=== PATIENT | female | born 1965 | race Caucasian/White ===

== ENCOUNTER 2017-07-17 10:50 | Inpatient (IN) | payer OTHER, SELFPAY ==
[2017-07-17] MEDS ORDERED: Ondansetron HCl/PF 4 MG/2 ML Vial ONE (11:11)
[2017-07-17] MEDS ORDERED: Insulin Regular 300 UNITS/3 ML VIAL ONE (11:11)
[2017-07-17] MEDS ORDERED: Insulin Regular 100 units/100 ml in NS IVPB ONE (11:15)
--- NOTE | 2017-07-17 11:27 | RAD ---
PORTABLE CHEST: HISTORY: Mental status change. COMPARISON: 01/29/17. The patient is suboptimally positioned. The lungs appear clear with no infiltrate identified. There is a question of a nodular density overlying the left lower lung which could potentially represent n ipple shadow or other artifact given this poor positioning. There is a calcified granuloma in the ri ght mid lung which is stable. No evidence of vascular congestion. IMPRESSION: Suboptimal exam due to poor positioning. Question new nodular density overlying the left lower lung. Otherwise no acute process. POS: [facility]
[2017-07-17 11:38] LABS: Hemoglobin 11.4 g/dL (12.0-16.0); Mean Corpuscular Hemoglobin 28.4 pg (27.0-31.0); Mean Corpuscular Volume 96.7 fl (81.0-99.0); Red Blood Cell (RBC) Count 4.01 mill/uL (4.20-5.40); White Blood Cell (WBC) Count 17.9 thou/uL (4.8-10.8)
[2017-07-17 11:49] LABS: CKMB 2.9 ng/mL (0-6.6); Troponin I 0.036 ng/mL (< 0.028)
[2017-07-17 11:52] LABS: ALT (SGPT) 28 U/L (8-55); AST (SGOT) 19 U/L (5-34); Alkaline Phosphatase 208 U/L (40-150); BUN (Urea Nitrogen) 44 mg/dL (9.8-20.1); Bilirubin, Total 0.2 mg/dL (0.2-1.2); CK (CPK) 48 U/L (29-168); Calc. Creatinine Clearance 0 mL/min (70-130); Calcium 8.4 mg/dL (7.8-10.44); Chloride 82 mmol/L (98-107); Estimated GFR-MDRD 24; Globulin 2.8 g/dL (2.4-3.5); Lipase 20 U/L (8-78); Magnesium 1.9 mg/dL (1.6-2.6); Phosphorus 7.8 mg/dL (2.3-4.7); Potassium 5.4 mmol/L (3.5-5.1); Protein, Total 5.8 g/dL (6.0-8.3); Sodium 125 mmol/L (136-145)
[2017-07-17 11:57] LABS: #Basophils 0.1 thou/uL (0.0-0.2); #Lymphocytes 2.1 thou/uL (1.20-3.40); #Monocytes 1.7 thou/uL (0.11-0.59); %Basophils 0.5 % (0.0-1.0); %Eosinophils 0.3 % (0.0-10.0); %Lymphocytes 11.8 % (21.0-51.0); %Monocytes 9.3 % (0.0-10.0); %Neutrophils 78.2 % (42.0-75.0); Mean Corpuscular HGB CONC 29.4 g/dL (32.0-36.0); Mean Platelet Volume 9.4 fL (7.4-10.4); Platelet Count 404 thou/uL (130-400); RBC Distribution Width 11.4 % (11.5-14.5)
[2017-07-17 12:06] LABS: Carbon Dioxide Less than 8 mmol/L (22-29); Glucose 987 mg/dL (70-105)
--- NOTE | 2017-07-17 13:01 | CT ---
CT HEAD WITHOUT CONTRAST: Technique: Multiple axial tomograms were obtained through the head without IV enhancement. History: Mental status change. FINDINGS: Ventricles have normal size. There is no evidence of intracranial mass, hemorrhage, or acute infarct. IMPRESSION: No acute abnormality. POS: [facility]
--- NOTE | 2017-07-17 14:05 | HP ---
PRIMARY CARE PHYSICIAN: City call admission. The patient is following sometimes Dr. Diego. REASON FOR ADMISSION: Acute kidney failure, acute metabolic encephalopathy, hypothermia, diabetes, k etoacidosis. HISTORY OF PRESENT ILLNESS: A 51-year-old female who has multiple admissions in our hospital in past for diabetes, ketoacidosis. Currently this patient is completely encephalopathic and she is not abl e to provide any history. The patient's family member called paramedics because she was unresponsive and she was completely incoherent. Paramedics saw this patient and she was completely disoriented, lethargic. They checked blood sugar which was greater than 400. After arrival to the emergency room , she had CT brain which was negative for any acute intracranial process. Her chest x-ray was normal . Routine blood tests showed serum ketones 19. Her sodium was 125, potassium 5.4 and carbon dioxide less than 8. Her blood glucose was 987. Her creatinine was 2.16. She had leukocytosis. She was h ypothermic required Jean Pierre Hugger in the emergency room. In the emergency room, patient was given IV f luid and insulin drip was started after giving bolus. REVIEW OF SYSTEMS: All review of systems tried to review with the patient, but unable to review at t his point because of metabolic encephalopathy. PAST MEDICAL HISTORY: Diabetes type 2, insulin requiring; hypertension; dyslipidemia; medication non compliance; peripheral neuropathy; tobacco abuse disorder. PAST SURGICAL HISTORY: Cholecystectomy, hysterectomy. PAST PSYCHIATRIC HISTORY: Reviewed and negative. ALLERGIES: NAPROXEN gives nausea. FAMILY HISTORY: Positive for coronary artery disease, diabetes, hypertension among several family me mbers. SOCIAL HISTORY: As per report, the patient has smoking of half pack per day for more than 20 years. She does not have any alcohol or other illicit drug abuse history. CURRENT HOME MEDICATIONS: The patient does not have any medication with her at this point, but based on our hospital discharge summary, the patient is on following medications: Lipitor 40 mg p.o. cortez y, Humalog insulin as per sliding scale, Lantus insulin 50 units in the morning and 40 units in the e vening, lisinopril 2.5 mg p.o. daily, metoprolol XL 25 mg p.o. daily. EMERGENCY ROOM COURSE: Patient was given 2 liters of IV fluid so far, Novolin R 10 unit, bolus given and subsequently insulin drip was started, Zofran 4 mg was given. PHYSICAL EXAMINATION: GENERAL: The patient is hypotensive with a blood pressure 91/54, tachycardic with pulse 100, hypothe rmic with temperature 92.5, saturation 97% on room air, tachypneic, weight 68 kilograms. GENERAL: The patient is hypothermic, hypotensive, appears ill, tachycardic, lethargic, encephalopath ic. HEAD: Normocephalic, atraumatic. EYES: Pupils round, reactive to light. Extraocular muscles intact. ENT: Dry mucous membranes, no oral lesions. No pharyngeal erythema, no exudates. NECK: Supple, no JVD, no thyromegaly, no carotid bruit, no jugular venous distention. LUNGS: Clear to auscultation without any rhonchi or rales. CARDIAC: S1, S2 regular, tachycardia, no murmur, no gallop, no rub. ABDOMEN: Soft on deep palpation and does not notice any grimace. No peritoneal signs, no guarding, no rigidity, no rebound, no suprapubic discomfort. BACK: Unremarkable, no CVA tenderness. EXTREMITIES: Upper extremity passive movements of all joints are normal. Lower extremities: No dolores ma. Good peripheral pulsation. SKIN: No skin rash. HEMATOLOGICAL: No palpable lymphadenopathy. NEUROLOGIC: Detailed neurological examination is not possible because of altered mental status. Natalie ient is not following, but see is moving all 4 limbs, so looking at her grossly nonfocal neurological examination. SIGNIFICANT LABS: EKG showing normal sinus rhythm without any ischemic changes. CT brain based on m y review, no acute intracranial process. Chest x-ray based on my review, no acute cardiopulmonary pr ocess. CBC: WBC 17.9, hemoglobin 11.4, platelets 404 with a left shift. BMP: Sodium 125, potassiu m 5.4, chloride 82, carbon dioxide less than 8, anion gap test not performed, BUN 44, creatinine 2.16 , glucose 987, calcium 8.4. Phosphorus 11.8, magnesium 1.9. LFT: AST 19, ALT 28, alkaline phosphatase 208, albumin 3.0. Lipase 20, CK 48, CK-MB 2.9, troponin I 0.036. Beta hydroxybutyrate 19.0. ASSESSMENT AND PLAN/IMPRESSION: 1. Acute metabolic encephalopathy. This patient has hyponatremia, hyperkalemia, metabolic acidosis, hyperglycemia, and acute kidney failure. All contributes to her current presentation. She has diab etic ketoacidosis. She does not have any focal neurological deficit. Her CT brain is negative. Und erlying infectious etiology needs to be excluded as well and that is why we will send blood and urine culture. 2. Diabetes ketoacidosis, type 2. This patient has carbon dioxide level less than 8. Her glucose i s 987. This patient is clear cut has diabetic ketoacidosis given her elevated beta-hydroxybutyrate. At this point, she will require admission in IMCU. We will continue insulin drip as per DKA protoco l treatment. We will also continue IV fluid as per DKA protocol treatment. When anion gap closed, a t that point, we will change IV fluid to dextrose with NS. We will replace electrolytes, meanwhile, as needed basis. We will monitor BMP, serum ketones every 4 hourly. Up on resolution of diabetes ke toacidosis, we will resume her long-acting insulin and then we will consider insulin as per sliding s hoang per protocol as needed. At that point, we will consider transferring her to medical floor. 3. Acute kidney failure, likely due to prerenal etiology from osmotic diuresis. This patient's sven l function previously was completely normal. At this point, we are suspecting prerenal etiology and with IV fluid, we are expecting her renal function should improve. We will check urinalysis and uri ne sodium, creatinine as well. 4. Abnormal electrolytes. This patient has hyponatremia, hyperkalemia, hypochloremia. At this poin t, the patient also has hyperphosphatemia. We will monitor electrolytes while in hospital and we kwabena l replace and correct accordingly. Her current sodium is low, is because of hyperglycemia and that i s why it is pseudohyponatremia. Her current potassium is high because of metabolic acidosis. 5. Elevated troponin, likely due to demand ischemia. We will do serial cardiac enzymes to rule out acute coronary syndrome. 6. Leukocytosis, rule out sepsis and that is why we will do blood culture and urine culture. Most candy renner, her leukocytosis is related with her DKA and stress response and that is why we will hold on a ntibiotic therapy at this point. 7. Hypothermia, rule out sepsis and that is why we will do blood culture and urine culture. Most li guevara related with environmental exposure. We will continue Jean Pierre Hugger for hypothermia until tempera ture normalize. 8. Hypotension. We will avoid blood pressure medication. The patient will be given IV fluid. 9. Anemia, normocytic, normochromic. We will repeat CBC tomorrow and we will continue ferrous sulfa te 325 mg p.o. daily upon improvement. 10. Dyslipidemia. We will check lipid profile tomorrow and continue Lipitor 40 mg p.o. at bedtime. 11. Deep venous thrombosis prophylaxis, heparin 5000 units subcu twice daily. 12. Gastrointestinal prophylaxis, Protonix 40 mg IV daily. 13. Code status: The patient is FULL CODE. Patient's is surrogate decision maker. Disposition plan based on clinical course. We are expecting patient's stay in hospital more than 2 m idnights. Plan of care discussed with the patient in detail.
[2017-07-17 14:10] LABS: Bilirubin Negative (Negative); Blood, Urine Negative (Negative); Clarity CLOUDY (Clear); Glucose, Urine (Dipstick) >=1000 mg/dL (Negative); Leukocyte Negative (Negative); Nitrite Negative (Negative); Protein, Urine (Dipstick) 300 mg/dL (Neg-Trace); Specific Gravity, Urine 1.028 (1.002-1.036); Urobilinogen 0.2 mg/dL (0.2-1.0)
[2017-07-17 14:17] LABS: Base Excess-Venous -24.1 mmol/L (-30.0-30.0); Bicarbonate (HCO3v) 4.2 mmol/L (1.0-85.0); CO2 Tension (PvCO2) 14.8 mmHg (41.0-51.0); Calcium, Ionized 0.91 mmol/L (1.12-1.32); Hemoglobin - Calc 11.4 g/dL (12.0-18.0); Lactate 3.05 mmol/L (0.50-2.20); O2 Tension (PvO2) 98.6 mmHg (35.0-45.0); Potassium 3.9 mmol/L (3.4-4.7); T. Carbon Dioxide 4.7 mmol/L (1.0-85.0); pH (Venous) 7.061 (7.35-7.45); vO2 Saturation-calc 94.3 % (0.0-100.0)
[2017-07-17 14:18] LABS: Bacteria/HPF None Seen HPF (None Seen); Hyaline Casts/LPF 0-3 HYALINE CAST LPF (0-3 Hyaline); RBC/HPF 0-3 HPF (0-3); Squamous Epithelial 0-3 HPF (0-3); WBC/HPF 0-3 HPF (0-3)
[2017-07-17 14:25] LABS: Glucose Greater than 700.0 mg/dL (70-105)
[2017-07-17] MEDS ORDERED: Loratadine 10 MG TAB PO PRN (14:30)
[2017-07-17] MEDS ORDERED: CCU Electrolyte Replacement 1 EACH IVPB ONE (14:30)
[2017-07-17] MEDS ORDERED: Calcium Carbonate 500 MG ChewTAB PO PRN (14:30)
[2017-07-17] MEDS ORDERED: Senokot 8.6 MG TAB PO PRN (14:30)
[2017-07-17] MEDS ORDERED: Acetaminophen 325 MG TAB PO PRN (14:30)
[2017-07-17] MEDS ORDERED: Eucerin (Mineral Oil/Petrolatum,White) 30 gm Jar TOP PRN (14:30)
[2017-07-17] MEDS ORDERED: Milk Of Magnesia 30 ML UDCUP PO PRN (14:30)
[2017-07-17] MEDS ORDERED: Sodium Chloride 0.9% 1,000 ML IV PRN ×4 (14:30)
[2017-07-17] MEDS ORDERED: Sodium Chloride 0.65% Nasal 44 ML BOT EA NARE PRN (14:30)
[2017-07-17] MEDS ORDERED: Artificial Tear Sol 15 ML BOT EA EYE PRN (14:30)
[2017-07-17] MEDS ORDERED: Dextrose 5 %-0.45 % NaCl 1,000 ML IV PRN (14:30)
[2017-07-17] MEDS ORDERED: NS 0.9% w/ 20 MEQ KCL 1,000 ML IV PRN (14:30)
[2017-07-17] MEDS ORDERED: Chloraseptic Spray 180 ml Bottle PO PRN (14:30)
[2017-07-17] MEDS ORDERED: Diabetic Tussin 200 MG/10 ML UDCUP PO PRN (14:30)
[2017-07-17] MEDS ORDERED: Mag-Al 1200 mg/1200 mg/30 ML UDCUP PO PRN (14:30)
[2017-07-17] MEDS ORDERED: Ondansetron ODT 4 MG TAB PO PRN (14:30)
[2017-07-17 14:40] VITALS: BMI 20.2
[2017-07-17] MEDS ORDERED: Potassium Chloride 40 MEQ in Sodium Chloride 0.9% 250 ML 250 ML IVPB PRN (14:46)
[2017-07-17] MEDS ORDERED: Magnesium Oxide 400 MG TAB PO PRN ×2 (14:46)
[2017-07-17] MEDS ORDERED: Potassium Chloride 40 MEQ in Premix Bag 1 BAG IVPB PRN (14:46)
[2017-07-17] MEDS ORDERED: Potassium Phosphate 9 MMOL in Sodium Chloride 0.9% 100 ML IVPB PRN (14:46)
[2017-07-17] MEDS ORDERED: Magnesium 2 GM/NS 0.9% 100 ML 2 GM in Premix Bag 1 BAG IVPB PRN (14:46)
[2017-07-17] MEDS ORDERED: Potassium Phosphate 15 MMOL in Sodium Chloride 0.9% 250 ML 250 ML IV PRN (14:46)
[2017-07-17] MEDS ORDERED: Potassium Phosphate 12 MMOL in Sodium Chloride 0.9% 250 ML 250 ML IV PRN (14:46)
[2017-07-17] MEDS ORDERED: Potassium Chloride 20 MEQ TAB PO PRN (14:46)
[2017-07-17] MEDS ORDERED: CCU ELECTROLYTE REPLACEMENT PROTOCOL FS PRN (14:46)
[2017-07-17 14:56] LABS: Troponin I 0.085 ng/mL (< 0.028)
[2017-07-17] MEDS ORDERED: Sodium Bicarb 50 MEQ/50 ML Abboject 8.4% SYRINGE IVP SCH (15:15)
[2017-07-17] MEDS ORDERED: cefTRIAXone\\ROCEPHIN 1 GM in Sodium Chloride 0.9% 100 ML IVPB SCH (15:15)
[2017-07-17 15:56] LABS: Creatinine, Urine 31.81 mg/dL (47-110)
[2017-07-17 15:57] LABS: BUN (Urea Nitrogen) 46 mg/dL (9.8-20.1); Calc. Creatinine Clearance 33 mL/min (70-130); Calcium 7.5 mg/dL (7.8-10.44); Chloride 93 mmol/L (98-107); Estimated GFR-MDRD 29; Potassium 3.9 mmol/L (3.5-5.1); Sodium 130 mmol/L (136-145)
[2017-07-17 16:02] LABS: Carbon Dioxide Less than 8 mmol/L (22-29); Glucose 750 mg/dL (70-105)
[2017-07-17 16:13] LABS: Osmolality, Serum 327 mOsm/kg (280-295)
[2017-07-17] MEDS: cefTRIAXone\\ROCEPHIN 1 GM, Syringe 0.4 ML in Sterile Water 9.6 ML SLOW IVP SCH (17:00)
[2017-07-17 17:49] LABS: Troponin I 0.173 ng/mL (< 0.028)
[2017-07-17 18:46] LABS: Anion Gap 28 mmol/L (10-20); BUN (Urea Nitrogen) 44 mg/dL (9.8-20.1); Calc. Creatinine Clearance 37 mL/min (70-130); Chloride 101 mmol/L (98-107); Estimated GFR-MDRD 33; Glucose 373 mg/dL (70-105); Potassium 3.9 mmol/L (3.5-5.1); Sodium 134 mmol/L (136-145)
[2017-07-17 18:56] LABS: Carbon Dioxide 9 mmol/L (22-29)
[2017-07-17] MEDS: NS 0.9% w/ 20 MEQ KCL 1,000 ML IV PRN ×2 (19:06→21:30)
[2017-07-17] MEDS ORDERED: FLU VACC QS2017-18 36 mo. & older 0.5 ML SYRINGE IM ONE (21:00)
[2017-07-17] MEDS: Ondansetron HCl/PF 4 MG/2 ML Vial IVP PRN (21:49)
[2017-07-17] MEDS: Heparin 5,000 UNITS/ML VIAL SC SCH (21:50)
[2017-07-17] MEDS: Insulin Detemir 100 UNITS/ML 25 UNITS in Pre-Filled Syringe SC SCH (22:04)
[2017-07-17 23:00] LABS: Anion Gap 21 mmol/L (10-20); BUN (Urea Nitrogen) 38 mg/dL (9.8-20.1); Calc. Creatinine Clearance 42 mL/min (70-130); Calcium 7.1 mg/dL (7.8-10.44); Carbon Dioxide 12 mmol/L (22-29); Chloride 106 mmol/L (98-107); Estimated GFR-MDRD 39; Glucose 186 mg/dL (70-105); Potassium 4.1 mmol/L (3.5-5.1); Sodium 135 mmol/L (136-145)
[2017-07-17] MEDS: D5 1/2 NS w/20 mEq KCL 1,000 ML IV PRN (23:20)
--- NOTE | 2017-07-18 01:13 | CON ---
DATE OF CONSULTATION: 07/17/2017 Ms. Kaba is a 51-year-old female with known uncontrolled diabetes type 1, presenting with elevated b lood sugar of greater than 400, hypertensive renal failure, and encephalopathic. Additionally, she was found to have a drug screen that was positive for methamphetamine and amphetami ne. She is in the MICU, reason for consult. She has seen Dr. Espinosa in the past. She denies any nausea, vomiting. She is lethargic, but arousa ble. PAST MEDICAL HISTORY: Uncontrolled diabetes, hypertension, renal failure. SOCIAL HISTORY: Previous substance abuse. Previous tobacco abuse. Previous alcohol intake. MEDICATIONS: From home, presumably includes Levemir 50 units twice a day, insulin 70/30, 15 units 3 times a day, Lipitor 40, metoprolol 25, and lisinopril 2.5. During the last visit over here recently, she stated that previous surgeries gallbladder and hysterec ranjan. ALLERGIES: Apparently, HYDRALAZINE, NONSTEROIDALS. REVIEW OF SYSTEMS: Otherwise, difficult to obtain. PHYSICAL EXAMINATION: VITAL SIGNS: Blood pressure is 85/90, she is receiving normal saline at 200 an hour, temperature 97, respirations 20, pulse 96. GENERAL: Awake and lethargic. CHEST: Decreased breath sounds, no wheezing. CARDIAC: Normal S1, S2. ABDOMEN: Soft, no masses. LABORATORY AND X-RAY FINDINGS: White count 17,000, H&H 11 and 38, platelet count is 44. Her venous pH showed it is decreased. Blood sugar greater than 700, bicarbonate was less than 8. Sodium 125, potassium 5.4, chloride 82. BUN 44, creatinine 2.6. Drug screen was positive as noted. Beta-hydroxybutyrate is 19. Chest x-ray shows a questionable infiltrate. CT of the head was negative. IMPRESSION: 1. Uncontrolled diabetes. 2. Diabetic ketoacidosis. 3. Left lung infiltrate. 4. Severe metabolic acidosis from diabetic ketoacidosis. 5. Hypertension. 6. Electrolyte imbalance. 7. Hyponatremia. 8. Renal failure. I would continue insulin drip 5 units an hour, start half the dose of Levemir subcu twice a day, aggr essive hydration, supportive care, empiric antibiotics. We will notify Dr. Espinosa.
[2017-07-18] MEDS: D5 1/2 NS w/20 mEq KCL 1,000 ML IV PRN ×2 (03:38→09:14)
[2017-07-18] MEDS: Ondansetron HCl/PF 4 MG/2 ML Vial IVP PRN (04:15)
[2017-07-18 04:53] LABS: #Basophils 0.1 thou/uL (0.0-0.2); #Eosinphils 0.1 thou/uL (0.0-0.7); #Lymphocytes 2.2 thou/uL (1.20-3.40); #Monocytes 1.7 thou/uL (0.11-0.59); #Neutrophils 13.1 thou/uL (1.40-6.50); %Basophils 0.3 % (0.0-1.0); %Eosinophils 0.8 % (0.0-10.0); %Lymphocytes 12.8 % (21.0-51.0); %Monocytes 10.1 % (0.0-10.0); Hemoglobin 11.1 g/dL (12.0-16.0); Mean Corpuscular HGB CONC 35.5 g/dL (32.0-36.0); Mean Corpuscular Hemoglobin 31.3 pg (27.0-31.0); Mean Corpuscular Volume 88.1 fl (81.0-99.0); Mean Platelet Volume 8.5 fL (7.4-10.4); Platelet Count 287 thou/uL (130-400); RBC Distribution Width 11.7 % (11.5-14.5); Red Blood Cell (RBC) Count 3.56 mill/uL (4.20-5.40); White Blood Cell (WBC) Count 17.2 thou/uL (4.8-10.8)
[2017-07-18 05:14] LABS: ALT (SGPT) 22 U/L (8-55); AST (SGOT) 18 U/L (5-34); Albumin 2.5 g/dL (3.5-5.0); Alkaline Phosphatase 144 U/L (40-150); Anion Gap 19 mmol/L (10-20); BUN (Urea Nitrogen) 35 mg/dL (9.8-20.1); Bilirubin, Total Less than 0.2 mg/dL (0.2-1.2); Calc. Creatinine Clearance 43 mL/min (70-130); Carbon Dioxide 13 mmol/L (22-29); Chloride 109 mmol/L (98-107); Cholesterol 241 mg/dl (< 200 Desired); Estimated GFR-MDRD 41; Globulin 2.4 g/dL (2.4-3.5); Glucose 249 mg/dL (70-105); HDL Cholesterol 60 mg/dL (>60 Neg Risk); LDL Cholesterol, Calculated 119 mg/dL; Magnesium 1.3 mg/dL (1.6-2.6); Phosphorus 2.2 mg/dL (2.3-4.7); Potassium 4.7 mmol/L (3.5-5.1); Protein, Total 4.9 g/dL (6.0-8.3); Sodium 136 mmol/L (136-145); Triglycerides 309 mg/dL (Less than 150)
[2017-07-18] MEDS ORDERED: Promethazine HCl 25 MG/ML VIAL IM/IV PRN (07:51)
[2017-07-18] MEDS ORDERED: Magnesium Sulfate 3 GM in Sodium Chloride 0.9% 100 ML IVPB SCH (08:00)
[2017-07-18] MEDS: Insulin Detemir 100 UNITS/ML 25 UNITS in Pre-Filled Syringe SC SCH (09:00)
[2017-07-18] MEDS ORDERED: Potassium Phosphate 15 MMOL in Sodium Chloride 0.9% 250 ML 250 ML IV SCH (09:00)
--- NOTE | 2017-07-18 09:29 | PDOC.PN ---
- Subjective Encounter Start Date: 07/18/17 Encounter Start Time: 07:00 -: old records requested/rev pt is lethargic, arousable, has nausea and vomiting, not able to keep anything down, on insulin drip - Objective Resuscitation Status: Resuscitation Status FULL:Full Resuscitation MAR Reviewed: Yes Vital Signs & Weight: Vital Signs (12 hours) Temp Pulse Resp BP BP Pulse Ox 07/18/17 08:00 99.1 F 106 H 20 100 07/18/17 07:05 99.1 F 106 H 20 133/80 100 07/18/17 04:00 98.1 F 108 H 16 139/82 100 07/18/17 00:00 98.2 F 105 H 16 132/75 100 Weight Weight 123 lb 1.6 oz I&O: 07/17/17 07/18/17 07/19/17 06:59 06:59 06:59 Intake Total 3000 250 Output Total 2475 125 Balance 525 125 Result Diagrams: 07/18/17 04:13 07/18/17 04:13 Additional Labs: Accuchecks 07/18/17 07/18/17 07/18/17 09:01 08:04 07:24 POC Glucose 210 H 257 H 268 H 07/18/17 07/18/17 07/18/17 06:19 04:59 04:04 POC Glucose 248 H 233 H 222 H 07/18/17 07/18/17 07/18/17 02:59 01:58 00:55 POC Glucose 193 H 156 H 130 H 07/17/17 07/17/17 07/17/17 23:56 23:04 21:57 POC Glucose 126 H 131 H 202 H 07/17/17 07/17/17 07/17/17 21:10 20:14 19:05 POC Glucose 167 H 250 H 349 H 07/17/17 07/17/17 07/17/17 18:28 16:59 16:07 POC Glucose 294 H 402 H 468 H 07/17/17 07/17/17 15:05 13:50 POC Glucose 528 H Greater than 550 H* EKG Reviewed by me: Yes (nsr) Phys Exam - Physical Examination Constitutional: NAD HEENT: PERRLA, sclera anicteric dry MM Neck: no nodes, no JVD, supple, full ROM Respiratory: no wheezing, no rales, no rhonchi Cardiovascular: RRR, no significant murmur, no rub Gastrointestinal: soft, non-tender, no distention, positive bowel sounds Musculoskeletal: no edema, pulses present Neurological: moves all 4 limbs Lymphatic: no nodes Psychiatric: normal affect Skin: no rash, normal turgor Dx/Plan (1) Community acquired bacterial pneumonia Code(s): J15.9 - UNSPECIFIED BACTERIAL PNEUMONIA Status: Acute (2) Acute metabolic encephalopathy Code(s): G93.41 - METABOLIC ENCEPHALOPATHY Status: Acute Comment: Improving (3) Acute renal failure (ARF) Status: Acute Comment: Improving (4) Diabetic ketoacidosis Code(s): E11.10 - TYPE 2 DIABETES MELLITUS WITH KETOACIDOSIS WITHOUT COMA Status: Acute Qualifiers: Diabetes mellitus type: type 2 Comment: resolving (5) Elevated troponin Code(s): R79.89 - OTHER SPECIFIED ABNORMAL FINDINGS OF BLOOD CHEMISTRY Status : Acute Comment: due to demand ischemia (6) Hypomagnesemia Code(s): E83.42 - HYPOMAGNESEMIA Status: Acute (7) Hyponatremia Code(s): E87.1 - HYPO-OSMOLALITY AND HYPONATREMIA Status: Resolved (8) Hypophosphatemia Code(s): E83.39 - OTHER DISORDERS OF PHOSPHORUS METABOLISM Status: Acute (9) HTN (hypertension) Code(s): I10 - ESSENTIAL (PRIMARY) HYPERTENSION Status: Chronic (10) Hyperlipidemia Code(s): E78.5 - HYPERLIPIDEMIA, UNSPECIFIED Status: Chronic (11) Peripheral neuropathy Code(s): G62.9 - POLYNEUROPATHY, UNSPECIFIED Status: Chronic (12) Tobacco abuse Code(s): Z72.0 - TOBACCO USE Status: Chronic (13) Type II diabetes mellitus Status: Chronic (14) Noncompliance with diet and medication regimen Code(s): Z91.11 - PATIENT'S NONCOMPLIANCE WITH DIETARY REGIMEN; Z91.14 - PATIENT 'S OTHER NONCOMPLIANCE WITH MEDICATION REGIMEN Status: Chronic (15) Hypotension Status: Resolved (16) Hypothermia Code(s): T68.XXXA - HYPOTHERMIA, INITIAL ENCOUNTER Status: Resolved - Plan cont current plan of care, continue antibiotics * replace magnesium sulfate 3 gm * replace sodium phosphate 15 mmol * will continue insulin drip and IVF along with long acting insulin * as she is not tolerating and has nausea and vomiting, she is risk for relapse of DKA * will add phenargan for nausea and vomiting * medication reviewed as below * symptomatic treatment * will repeat labs at 3 PM and based on clinical course, will decide to transfer. Review of Systems - Review of Systems Constitutional: negative: fever, chills, sweats, weakness, malaise, other Eyes: negative: Pain, Vision Change, Conjunctivae Inflammation, Eyelid Inflammation, Redness, Other ENT: negative: Ear Pain, Ear Discharge, Nose Pain, Nose Discharge, Nose Congestion, Mouth Pain, Mouth Swelling, Throat Pain, Throat Swelling, Other Respiratory: negative: Cough, Dry, Shortness of Breath, Hemoptysis, SOB with Excertion, Pleuritic Pain, Sputum, Wheezing Cardiovascular: negative: chest pain, palpitations, orthopnea, paroxysmal nocturnal dyspnea, edema, light headedness, other Gastrointestinal: Nausea, Vomiting. negative: Abdominal Pain, Diarrhea, Constipation, Melena, Hematochezia, Other Genitourinary: negative: Dysuria, Frequency, Incontinence, Hematuria, Retention , Other Musculoskeletal: negative: Neck Pain, Shoulder Pain, Arm Pain, Back Pain, Hand Pain, Leg Pain, Foot Pain, Other Skin: negative: Rash, Lesions, Jan, Bruising, Other - Medications/Allergies Allergies/Adverse Reactions: Allergies Allergy/AdvReac Type Severity Reaction Status Date / Time hydralazine Allergy Verified 07/17/17 14:46 naproxen [From Naprosyn] Allergy Verified 07/17/17 14:46 Medications: Current Medications Acetaminophen (Tylenol) 650 mg PO Q4H PRN PRN Reason: Headache/Fever or Pain Al Hydroxide/Mg Hydroxide (Maalox) 30 ml PO Q6H PRN PRN Reason: Heartburn or Indigestion Artificial Tears (Tears Renewed 15ml Bottle) 0 drop EA EYE PRN PRN PRN Reason: Dry Eyes Calcium Carbonate (Tums) 1,000 mg PO Q4H PRN PRN Reason: Heartburn or Indigestion Guaifenesin (Robitussin Sf) 200 mg PO Q4H PRN PRN Reason: Cough Heparin Sodium (Porcine) (Heparin) 5,000 units SC BID SANDI Last Admin: 07/18/17 09:30 Dose: 5,000 units Dextrose/Sodium Chloride (D5 1/2 Ns) 1,000 mls @ 250 mls/hr IV .Q4H PRN; Protocol PRN Reason: Step 4 of DKA Protocol Potassium Chloride/Dextrose/Sod Cl (D5 1/2 Ns W/20 Meq Kcl) 1,000 mls @ 250 mls /hr IV .Q4H PRN; Protocol PRN Reason: Step 4 of DKA Protocol Last Admin: 07/18/17 09:14 Dose: 1,000 mls Insulin Human Regular 100 (units/ Sodium Chloride) 101 mls @ 0 mls/hr IVPB INF SANDI; Titrate PRN Reason: Protocol Sodium Chloride (Normal Saline 0.9%) 1,000 mls @ 500 mls/hr IV .Q2H PRN; Protocol PRN Reason: Step 1 of DKA Protocol Last Admin: 07/17/17 15:15 Dose: 1,000 mls Sodium Chloride (Normal Saline 0.9%) 1,000 mls @ 1,000 mls/hr IV .Q1H PRN; Protocol PRN Reason: Step 1 of DKA Protocol Sodium Chloride (Normal Saline 0.9%) 1,000 mls @ 250 mls/hr IV .Q4H PRN; Protocol PRN Reason: SEE STEP 3 OF DKA PROTOCOL Sodium Chloride (Normal Saline 0.9%) 1,000 mls @ 500 mls/hr IV .Q2H PRN; Protocol PRN Reason: Step 2 of DKA Protocol Potassium Chloride/Sodium Chloride (Ns 0.9% W/ 20 Meq Kcl) 1,000 mls @ 500 mls/ hr IV .Q2H PRN; Protocol PRN Reason: Step 2 of DKA Protocol Last Admin: 07/17/17 21:30 Dose: 1,000 mls Potassium Chloride/Sodium Chloride (Ns 0.9% W/ 20 Meq Kcl) 1,000 mls @ 250 mls/ hr IV .Q4H PRN; Protocol PRN Reason: SEE STEP 3 OF DKA PROTOCOL Last Admin: 07/18/17 07:36 Dose: 1,000 mls Potassium Chloride 40 meq/ (Sodium Chloride) 270 mls @ 135 mls/hr IVPB ASDIR PRN PRN Reason: FOR SERUM K+ 2.5 - 3.5 Potassium Chloride 40 meq/ (Device) 100 mls @ 50 mls/hr IVPB ASDIR PRN PRN Reason: FOR SERUM K+ 2.5 - 3.5 Magnesium Sulfate 1 gm/ Sodium (Chloride) 102 mls @ 102 mls/hr IV PRN PRN PRN Reason: MAG LEVEL 1.4 - 2.0 Magnesium Sulfate 2 gm/ Device 100 mls @ 100 mls/hr IVPB ASDIR PRN PRN Reason: MAGNESIUM < 1.4 Potassium Phosphate 9 mmol/ (Sodium Chloride) 103 mls @ 25.75 mls/hr IVPB ASDIR PRN PRN Reason: Phosphate 1.0-1.8 Potassium Phosphate 12 mmol/ (Sodium Chloride) 254 mls @ 63.5 mls/hr IV ASDIR PRN PRN Reason: Serum phosphate 0.5-0.9 Potassium Phosphate 15 mmol/ (Sodium Chloride) 255 mls @ 63.75 mls/hr IV ASDIR PRN PRN Reason: Serum Phos < 0.5 Insulin Detemir 25 units/ (Miscellaneous Medication) 0.25 mls @ 0 mls/hr SC BID [facility] Last Admin: 07/17/17 22:04 Dose: Not Given Ceftriaxone Sodium 1 gm/ (Syringe 0.4 ml/ Sterile Water) 10 mls @ 120 mls/hr SLOW IVP Q24HR@1600 [facility] Last Admin: 07/17/17 17:00 Dose: 10 mls Potassium Phosphate 15 mmol/ (Sodium Chloride) 255 mls @ 63.75 mls/hr IV 0900 [facility] Stop: 07/18/17 12:59 Last Admin: 07/18/17 09:15 Dose: 255 mls Loperamide HCl (Imodium) 2 mg PO PRN PRN PRN Reason: Diarrhea/Loose Stools Loratadine (Claritin) 10 mg PO DAILYPRN PRN PRN Reason: Sinus Symptoms Magnesium Hydroxide (Milk Of Magnesium) 30 ml PO DAILYPRN PRN PRN Reason: Constipation Magnesium Oxide (Magnesium Oxide) 400 mg PO BIDPRN PRN PRN Reason: FOR SERUM MAG 1.4 - 2.0 Magnesium Oxide (Magnesium Oxide) 800 mg PO PRN PRN PRN Reason: FOR SERUM MAG < 1.4 Mineral Oil/White Petrolatum (Eucerin Cream) 0 gm TOP BIDPRN PRN PRN Reason: Dry Skin Miscellaneous Medication (Phos-Nak) 1 pkt PO TIDPRN PRN PRN Reason: FOR PHOS LEVEL 1.0 - 1.8 Miscellaneous Medication (Phos-Nak) 2 pkt PO TIDPRN PRN PRN Reason: FOR PHOS LEVEL 0.5 - 1.0 Ccu Electrolyte (Replacement Protocol) 0 each FS PRN PRN PRN Reason: FOR ELECTROLYTE REPLACEMENT Ondansetron HCl (Zofran Odt) 4 mg PO Q6H PRN PRN Reason: Nausea/Vomiting Last Admin: 07/18/17 01:03 Dose: 4 mg Ondansetron HCl (Zofran) 4 mg IVP Q6H PRN PRN Reason: Nausea/Vomiting Last Admin: 07/18/17 04:15 Dose: 4 mg Phenol (Chloraseptic [place] 180 Ml Bot) 0 ml PO PRN PRN PRN Reason: Sore Throat Potassium Chloride (K-Dur) 40 meq PO ASDIR PRN PRN Reason: FOR SERUM K+ 2.5 - 3.5 Potassium Chloride (Klor-Con) 40 meq PER TUBE ASDIR PRN PRN Reason: FOR SERUM K+ 2.5-3.5 Promethazine HCl (Phenergan) 12.5 mg IM/IV Q6H PRN PRN Reason: Nausea/Vomiting Last Admin: 07/18/17 09:30 Dose: 12.5 mg Senna (Senokot) 2 tab PO HSPRN PRN PRN Reason: Constipation Sodium Chloride ([place] Nasal [place] 0.65%) 0 ml EA NARE QIDPRN PRN PRN Reason: Nasal Congestion
[2017-07-18] MEDS: Heparin 5,000 UNITS/ML VIAL SC SCH ×2 (09:30→20:53)
[2017-07-18] MEDS ORDERED: Magnesium 2 GM/NS 0.9% 100 ML 2 GM in Premix Bag 1 BAG IVPB SCH (10:15)
--- NOTE | 2017-07-18 10:44 | PRG ---
DATE OF SERVICE: 07/18/2017 SERVICE: Pulmonary Medicine. INTERVAL HISTORY: The patient is doing okay from a respiratory standpoint. She is on room air. She indicates she is breathing comfortably. She remains a little tachycardic, but this is improving. S he has absolutely no tolerance for p.o. at this time. She is having nausea and continues to have gloria e dry heaving. Outside of this, there has been no interval change her condition. PHYSICAL EXAMINATION: VITAL SIGNS: Afebrile currently with a T-max of 99.1, pulse 106, blood pressure 133/80, respirations 20, saturation 100% on room air. GENERAL: The patient is awake, alert, no apparent distress. LUNGS: Decreased air entry. Crackles are present. HEART: Normal rate, regular. ABDOMEN: Soft, nontender, nondistended. Bowel sounds are positive. MUSCULOSKELETAL: No cyanosis or clubbing. There is diffuse pitting, which is roughly 1-2+ in the up per extremities. No pitting in the lower extremities, but she has 1-2+ pitting at the sacrum as well . GENITOURINARY: Loo catheter in place. NEUROLOGIC: Grossly nonfocal. LABORATORY DATA: WBC 17.2, hemoglobin 11.1, platelets 287,000. Neutrophil count is stable at 76%. Creatinine has improved to 1.35 and is gently down trending. Basic metabolic profile is otherwise un remarkable. Bicarbonate is improved to 13. Anion gap remains elevated, but is moving in the right d irection. Magnesium 1.3. Phosphorus 2.2. Triglycerides are elevated. Lipase was previously low at 20. Urinalysis was unremarkable except for proteinuria and glycosuria. Beta hydroxybutyric acid co ntinues to trend downward. Blood cultures x2, urine culture, Influenza A and B are all unremarkable. ASSESSMENT: 1. Diabetic ketoacidosis. 2. Metabolic encephalopathy, improving. 3. Hypomagnesemia. 4. Hypophosphatemia. 5. Acute kidney injury. 6. Nodular infiltrate in the left lower lobe. PLAN: The patient is doing fairly well from a metabolic process. We will need to replace magnesium and phosphorus today. We will continue her on the insulin drip until she closes her gap fully. I wi ll deescalate her IV fluids down to 125 per hour and run them at a continuous rate. Pulmonary and Cr itical Care will continue to follow while she remains in this location. She should not be transition ed off her insulin drip until she is tolerating p.o., and she fully clears her gap.
[2017-07-18] MEDS: Dextrose 5 %-0.45 % NaCl 1,000 ML IV SCH ×3 (13:11→20:52)
[2017-07-18 15:33] LABS: Anion Gap 12 mmol/L (10-20); BUN (Urea Nitrogen) 25 mg/dL (9.8-20.1); Calc. Creatinine Clearance 54 mL/min (70-130); Carbon Dioxide 17 mmol/L (22-29); Chloride 112 mmol/L (98-107); Estimated GFR-MDRD 53; Glucose 168 mg/dL (70-105); Magnesium 2.1 mg/dL (1.6-2.6); Phosphorus 2.3 mg/dL (2.3-4.7); Potassium 4.6 mmol/L (3.5-5.1); Sodium 136 mmol/L (136-145)
[2017-07-18] MEDS: cefTRIAXone\\ROCEPHIN 1 GM, Syringe 0.4 ML in Sterile Water 9.6 ML SLOW IVP SCH (16:13)
[2017-07-18] MEDS: HumaLOG 300 UNITS/3 ML VIAL SC PRN ×2 (16:58→20:55)
[2017-07-18] MEDS: Insulin Detemir 100 UNITS/ML 25 UNITS in Pre-Filled Syringe 1 EACH SC SCH (20:58)
[2017-07-19] MEDS: Labetalol HCl 100 MG/20 ML VIAL SLOW IVP PRN (00:59)
[2017-07-19] MEDS: HumaLOG 300 UNITS/3 ML VIAL SC PRN (01:11)
[2017-07-19] MEDS: Dextrose 5 %-0.45 % NaCl 1,000 ML IV SCH (05:23)
[2017-07-19 05:48] LABS: Anion Gap 9 mmol/L (10-20); BUN (Urea Nitrogen) 19 mg/dL (9.8-20.1); Calc. Creatinine Clearance 68 mL/min (70-130); Carbon Dioxide 17 mmol/L (22-29); Chloride 112 mmol/L (98-107); Estimated GFR-MDRD 70; Glucose 121 mg/dL (70-105); Potassium 3.7 mmol/L (3.5-5.1); Sodium 134 mmol/L (136-145)
[2017-07-19 05:55] LABS: #Basophils 0.1 thou/uL (0.0-0.2); #Eosinphils 0.1 thou/uL (0.0-0.7); #Lymphocytes 2.6 thou/uL (1.20-3.40); #Monocytes 0.6 thou/uL (0.11-0.59); #Neutrophils 5.9 thou/uL (1.40-6.50); %Basophils 0.8 % (0.0-1.0); %Eosinophils 0.7 % (0.0-10.0); %Lymphocytes 28.4 % (21.0-51.0); %Monocytes 6.7 % (0.0-10.0); %Neutrophils 63.4 % (42.0-75.0); Hemoglobin 9.9 g/dL (12.0-16.0); Mean Corpuscular HGB CONC 32.4 g/dL (32.0-36.0); Mean Corpuscular Volume 89.5 fl (81.0-99.0); Mean Platelet Volume 7.4 fL (7.4-10.4); Platelet Count 280 thou/uL (130-400); RBC Distribution Width 11.8 % (11.5-14.5); White Blood Cell (WBC) Count 9.3 thou/uL (4.8-10.8)
[2017-07-19] MEDS: Heparin 5,000 UNITS/ML VIAL SC SCH ×2 (09:05→21:29)
[2017-07-19] MEDS: Insulin Detemir 100 UNITS/ML 25 UNITS in Pre-Filled Syringe 1 EACH SC SCH ×2 (09:06→21:32)
--- NOTE | 2017-07-19 09:28 | PDOC.PN ---
- Subjective Encounter Start Date: 07/19/17 Encounter Start Time: 07:00 pt is more alert, less nausea and vomiting, weak Patient seen and examined. No overnight events - Objective Resuscitation Status: Resuscitation Status FULL:Full Resuscitation MAR Reviewed: Yes Vital Signs & Weight: Vital Signs (12 hours) Temp Pulse Resp BP BP BP Pulse Ox 07/19/17 07:32 97.6 F 88 16 113/66 97 07/19/17 04:00 98.2 F 98 16 129/84 100 07/19/17 00:59 101 H 162/92 H 07/19/17 00:00 98.3 F 102 H 16 162/92 H 99 Weight Weight 123 lb 1.6 oz I&O: 07/18/17 07/19/17 07/20/17 06:59 06:59 06:59 Intake Total 3000 2172 Output Total 2475 570 Balance 525 1602 Result Diagrams: 07/19/17 05:41 07/19/17 05:18 Additional Labs: Accuchecks 07/19/17 07/19/17 07/18/17 05:18 01:11 20:17 POC Glucose 117 H 235 H 354 H 07/18/17 07/18/17 07/18/17 14:24 12:57 11:15 POC Glucose 140 H 126 H 161 H 07/18/17 10:04 POC Glucose 177 H Phys Exam - Physical Examination Constitutional: NAD HEENT: PERRLA, moist MMs, sclera anicteric Neck: no JVD, supple Respiratory: no wheezing, no rales, no rhonchi, clear to auscultation bilateral Cardiovascular: RRR, no significant murmur, no rub Gastrointestinal: soft, non-tender, no distention, positive bowel sounds Musculoskeletal: no edema, pulses present Neurological: non-focal, normal sensation Lymphatic: no nodes Psychiatric: normal affect Skin: no rash, normal turgor Dx/Plan (1) Community acquired bacterial pneumonia Code(s): J15.9 - UNSPECIFIED BACTERIAL PNEUMONIA Status: Acute (2) Acute metabolic encephalopathy Code(s): G93.41 - METABOLIC ENCEPHALOPATHY Status: Resolved Comment: (3) Acute renal failure (ARF) Status: Resolved Comment: (4) Diabetic ketoacidosis Code(s): E11.10 - TYPE 2 DIABETES MELLITUS WITH KETOACIDOSIS WITHOUT COMA Status: Resolved Qualifiers: Diabetes mellitus type: type 2 Comment: resolving (5) Elevated troponin Code(s): R79.89 - OTHER SPECIFIED ABNORMAL FINDINGS OF BLOOD CHEMISTRY Status : Acute Comment: due to demand ischemia (6) Hypomagnesemia Code(s): E83.42 - HYPOMAGNESEMIA Status: Resolved (7) Hyponatremia Code(s): E87.1 - HYPO-OSMOLALITY AND HYPONATREMIA Status: Resolved (8) Hypophosphatemia Code(s): E83.39 - OTHER DISORDERS OF PHOSPHORUS METABOLISM Status: Resolved (9) HTN (hypertension) Code(s): I10 - ESSENTIAL (PRIMARY) HYPERTENSION Status: Chronic (10) Hyperlipidemia Code(s): E78.5 - HYPERLIPIDEMIA, UNSPECIFIED Status: Chronic (11) Peripheral neuropathy Code(s): G62.9 - POLYNEUROPATHY, UNSPECIFIED Status: Chronic (12) Tobacco abuse Code(s): Z72.0 - TOBACCO USE Status: Chronic (13) Type II diabetes mellitus Status: Chronic (14) Noncompliance with diet and medication regimen Code(s): Z91.11 - PATIENT'S NONCOMPLIANCE WITH DIETARY REGIMEN; Z91.14 - PATIENT 'S OTHER NONCOMPLIANCE WITH MEDICATION REGIMEN Status: Chronic (15) Hypotension Status: Resolved (16) Hypothermia Code(s): T68.XXXA - HYPOTHERMIA, INITIAL ENCOUNTER Status: Resolved - Plan cont current plan of care, continue antibiotics * continue rocephin * DC IVF * ambulate as tolerated * will adjust insulin today * expecting discharge in 24-48 hours * medication reviewed as below * symptomatic treatment. * restart selected home meds Review of Systems - Review of Systems Eyes: negative: Pain, Vision Change, Conjunctivae Inflammation, Eyelid Inflammation, Redness, Other ENT: negative: Ear Pain, Ear Discharge, Nose Pain, Nose Discharge, Nose Congestion, Mouth Pain, Mouth Swelling, Throat Pain, Throat Swelling, Other Respiratory: negative: Cough, Dry, Shortness of Breath, Hemoptysis, SOB with Excertion, Pleuritic Pain, Sputum, Wheezing Cardiovascular: negative: chest pain, palpitations, orthopnea, paroxysmal nocturnal dyspnea, edema, light headedness, other Gastrointestinal: negative: Nausea, Vomiting, Abdominal Pain, Diarrhea, Constipation, Melena, Hematochezia, Other Genitourinary: negative: Dysuria, Frequency, Incontinence, Hematuria, Retention , Other Musculoskeletal: negative: Neck Pain, Shoulder Pain, Arm Pain, Back Pain, Hand Pain, Leg Pain, Foot Pain, Other Skin: negative: Rash, Lesions, Jan, Bruising, Other - Medications/Allergies Allergies/Adverse Reactions: Allergies Allergy/AdvReac Type Severity Reaction Status Date / Time hydralazine Allergy Verified 07/17/17 14:46 naproxen [From Naprosyn] Allergy Verified 07/17/17 14:46 Medications: Current Medications Acetaminophen (Tylenol) 650 mg PO Q4H PRN PRN Reason: Headache/Fever or Pain Al Hydroxide/Mg Hydroxide (Maalox) 30 ml PO Q6H PRN PRN Reason: Heartburn or Indigestion Artificial Tears (Tears Renewed 15ml Bottle) 0 drop EA EYE PRN PRN PRN Reason: Dry Eyes Calcium Carbonate (Tums) 1,000 mg PO Q4H PRN PRN Reason: Heartburn or Indigestion Guaifenesin (Robitussin Sf) 200 mg PO Q4H PRN PRN Reason: Cough Heparin Sodium (Porcine) (Heparin) 5,000 units SC BID REPLACED BY [facility] Last Admin: 07/19/17 09:05 Dose: 5,000 units Ceftriaxone Sodium 1 gm/ (Syringe 0.4 ml/ Sterile Water) 10 mls @ 120 mls/hr SLOW IVP Q24HR@1600 REPLACED BY [facility] Last Admin: 07/18/17 16:13 Dose: 10 mls Dextrose/Sodium Chloride (D5 1/2 Ns) 1,000 mls @ 150 mls/hr IV .Q6H40M REPLACED BY [facility] Last Admin: 07/19/17 05:23 Dose: 1,000 mls Insulin Detemir 25 units/ (Miscellaneous Medication) 0.25 mls @ 0 mls/hr SC BID REPLACED BY [facility] Last Admin: 07/19/17 09:06 Dose: 0.25 mls Insulin Human Lispro (Humalog) 0 units SC .MODERATE SLIDING SC PRN; Protocol PRN Reason: MODERATE SLIDING SCALE Last Admin: 07/19/17 01:11 Dose: 4 unit Labetalol HCl (Normodyne) 20 mg SLOW IVP Q6H PRN PRN Reason: FOR SBP > 160 Last Admin: 07/19/17 00:59 Dose: 20 mg Loperamide HCl (Imodium) 2 mg PO PRN PRN PRN Reason: Diarrhea/Loose Stools Loratadine (Claritin) 10 mg PO DAILYPRN PRN PRN Reason: Sinus Symptoms Last Admin: 07/18/17 20:57 Dose: 10 mg Mineral Oil/White Petrolatum (Eucerin Cream) 0 gm TOP BIDPRN PRN PRN Reason: Dry Skin Ondansetron HCl (Zofran Odt) 4 mg PO Q6H PRN PRN Reason: Nausea/Vomiting Last Admin: 07/18/17 01:03 Dose: 4 mg Ondansetron HCl (Zofran) 4 mg IVP Q6H PRN PRN Reason: Nausea/Vomiting Last Admin: 07/18/17 04:15 Dose: 4 mg Phenol (Chloraseptic Edgar 180 Ml Bot) 0 ml PO PRN PRN PRN Reason: Sore Throat Promethazine HCl (Phenergan) 12.5 mg IM/IV Q6H PRN PRN Reason: Nausea/Vomiting Last Admin: 07/18/17 09:30 Dose: 12.5 mg Senna (Senokot) 2 tab PO HSPRN PRN PRN Reason: Constipation Sodium Chloride (Dyer Nasal Edgar 0.65%) 0 ml EA NARE QIDPRN PRN PRN Reason: Nasal Congestion
[2017-07-19] MEDS ORDERED: Lisinopril 2.5 MG TAB PO SCH (10:15)
[2017-07-19] MEDS ORDERED: Atorvastatin Calcium 40 MG TAB PO SCH (10:15)
[2017-07-19] MEDS ORDERED: Famotidine 20 MG TAB PO SCH (10:15)
[2017-07-19] MEDS: Atorvastatin Calcium 40 MG TAB PO SCH (11:29)
[2017-07-19] MEDS: cefTRIAXone\\ROCEPHIN 1 GM, Syringe 0.4 ML in Sterile Water 9.6 ML SLOW IVP SCH (15:53)
[2017-07-19] MEDS: Loperamide HCl 2 MG CAP PO PRN ×2 (19:00→21:30)
[2017-07-19] MEDS: Famotidine 20 MG TAB PO SCH (21:30)
[2017-07-20] MEDS: Lisinopril 2.5 MG TAB PO SCH (07:59)
[2017-07-20] MEDS: Heparin 5,000 UNITS/ML VIAL SC SCH ×2 (07:59→20:27)
[2017-07-20] MEDS: Atorvastatin Calcium 40 MG TAB PO SCH (07:59)
[2017-07-20] MEDS: Famotidine 20 MG TAB PO SCH ×2 (07:59→20:27)
[2017-07-20] MEDS: Labetalol HCl 100 MG/20 ML VIAL SLOW IVP PRN (08:00)
[2017-07-20] MEDS: Insulin Detemir 100 UNITS/ML 25 UNITS in Pre-Filled Syringe 1 EACH SC SCH ×2 (08:12→20:30)
--- NOTE | 2017-07-20 10:43 | PDOC.PN ---
- Subjective Encounter Start Date: 07/20/17 Encounter Start Time: 09:20 Patient seen and examined. No new complaints. No overnight events - Objective Resuscitation Status: Resuscitation Status FULL:Full Resuscitation MAR Reviewed: Yes Vital Signs & Weight: Vital Signs (12 hours) Temp Pulse Resp BP Pulse Ox 07/20/17 08:11 98 F 102 H 18 98 07/20/17 08:00 102 H 186/107 H 07/20/17 07:59 102 H 186/107 H Weight Weight 123 lb 1.6 oz I&O: 07/19/17 07/20/17 07/21/17 06:59 06:59 06:59 Intake Total 2172 657 Output Total 570 950 Balance 1602 -293 Result Diagrams: 07/19/17 05:41 07/19/17 05:18 Additional Labs: Accuchecks 07/19/17 07/19/17 07/19/17 21:28 15:31 11:58 POC Glucose 159 H 156 H 103 07/17/17 14:11 POC Glucose Greater than 550 H* Phys Exam - Physical Examination Constitutional: NAD HEENT: PERRLA, moist MMs, sclera anicteric Neck: no JVD, supple Respiratory: no wheezing, no rales, no rhonchi Cardiovascular: RRR, no significant murmur, no rub Gastrointestinal: soft, non-tender, no distention, positive bowel sounds Musculoskeletal: no edema, pulses present Neurological: non-focal, normal sensation, moves all 4 limbs Psychiatric: normal affect, A&O x 3 Skin: no rash, normal turgor Dx/Plan (1) Community acquired bacterial pneumonia Code(s): J15.9 - UNSPECIFIED BACTERIAL PNEUMONIA Status: Acute (2) Acute metabolic encephalopathy Code(s): G93.41 - METABOLIC ENCEPHALOPATHY Status: Resolved Comment: (3) Acute renal failure (ARF) Status: Resolved Comment: (4) Diabetic ketoacidosis Code(s): E11.10 - TYPE 2 DIABETES MELLITUS WITH KETOACIDOSIS WITHOUT COMA Status: Resolved Qualifiers: Diabetes mellitus type: type 2 Comment: resolving (5) Elevated troponin Code(s): R79.89 - OTHER SPECIFIED ABNORMAL FINDINGS OF BLOOD CHEMISTRY Status : Acute Comment: due to demand ischemia (6) Hypomagnesemia Code(s): E83.42 - HYPOMAGNESEMIA Status: Resolved (7) Hyponatremia Code(s): E87.1 - HYPO-OSMOLALITY AND HYPONATREMIA Status: Resolved (8) Hypophosphatemia Code(s): E83.39 - OTHER DISORDERS OF PHOSPHORUS METABOLISM Status: Resolved (9) HTN (hypertension) Code(s): I10 - ESSENTIAL (PRIMARY) HYPERTENSION Status: Chronic (10) Hyperlipidemia Code(s): E78.5 - HYPERLIPIDEMIA, UNSPECIFIED Status: Chronic (11) Peripheral neuropathy Code(s): G62.9 - POLYNEUROPATHY, UNSPECIFIED Status: Chronic (12) Tobacco abuse Code(s): Z72.0 - TOBACCO USE Status: Chronic (13) Type II diabetes mellitus Status: Chronic (14) Noncompliance with diet and medication regimen Code(s): Z91.11 - PATIENT'S NONCOMPLIANCE WITH DIETARY REGIMEN; Z91.14 - PATIENT 'S OTHER NONCOMPLIANCE WITH MEDICATION REGIMEN Status: Chronic (15) Hypotension Status: Resolved (16) Hypothermia Code(s): T68.XXXA - HYPOTHERMIA, INITIAL ENCOUNTER Status: Resolved - Plan cont current plan of care, plan discussed w/ family, continue antibiotics * continue rocephin * restart BP meds * medication reviewed as below * symptomatic treatment * will plan for discharge tomorrow morning. Review of Systems - Review of Systems ENT: negative: Ear Pain, Ear Discharge, Nose Pain, Nose Discharge, Nose Congestion, Mouth Pain, Mouth Swelling, Throat Pain, Throat Swelling, Other Respiratory: negative: Cough, Dry, Shortness of Breath, Hemoptysis, SOB with Excertion, Pleuritic Pain, Sputum, Wheezing Cardiovascular: negative: chest pain, palpitations, orthopnea, paroxysmal nocturnal dyspnea, edema, light headedness, other Gastrointestinal: negative: Nausea, Vomiting, Abdominal Pain, Diarrhea, Constipation, Melena, Hematochezia, Other Genitourinary: negative: Dysuria, Frequency, Incontinence, Hematuria, Retention , Other Musculoskeletal: negative: Neck Pain, Shoulder Pain, Arm Pain, Back Pain, Hand Pain, Leg Pain, Foot Pain, Other Skin: negative: Rash, Lesions, Jan, Bruising, Other - Medications/Allergies Allergies/Adverse Reactions: Allergies Allergy/AdvReac Type Severity Reaction Status Date / Time hydralazine Allergy Verified 07/17/17 14:46 naproxen [From Naprosyn] Allergy Verified 07/17/17 14:46 Medications: Current Medications Acetaminophen (Tylenol) 650 mg PO Q4H PRN PRN Reason: Headache/Fever or Pain Al Hydroxide/Mg Hydroxide (Maalox) 30 ml PO Q6H PRN PRN Reason: Heartburn or Indigestion Artificial Tears (Tears Renewed 15ml Bottle) 0 drop EA EYE PRN PRN PRN Reason: Dry Eyes Atorvastatin Calcium (Lipitor) 40 mg PO DAILY [facility] Last Admin: 07/20/17 07:59 Dose: 40 mg Calcium Carbonate (Tums) 1,000 mg PO Q4H PRN PRN Reason: Heartburn or Indigestion Famotidine (Pepcid) 20 mg PO BID [facility] Last Admin: 07/20/17 07:59 Dose: 20 mg Guaifenesin (Robitussin Sf) 200 mg PO Q4H PRN PRN Reason: Cough Heparin Sodium (Porcine) (Heparin) 5,000 units SC BID [facility] Last Admin: 07/20/17 07:59 Dose: 5,000 units Ceftriaxone Sodium 1 gm/ (Syringe 0.4 ml/ Sterile Water) 10 mls @ 120 mls/hr SLOW IVP Q24HR@1600 [facility] Last Admin: 07/19/17 15:53 Dose: 10 mls Insulin Detemir 25 units/ (Miscellaneous Medication) 0.25 mls @ 0 mls/hr SC BID [facility] Last Admin: 07/20/17 08:12 Dose: 0.25 mls Insulin Human Lispro (Humalog) 0 units SC .MODERATE SLIDING SC PRN; Protocol PRN Reason: MODERATE SLIDING SCALE Last Admin: 07/19/17 01:11 Dose: 4 unit Labetalol HCl (Normodyne) 20 mg SLOW IVP Q6H PRN PRN Reason: FOR SBP > 160 Last Admin: 07/20/17 08:00 Dose: 20 mg Lisinopril (Zestril) 2.5 mg PO DAILY [facility] Last Admin: 07/20/17 07:59 Dose: 2.5 mg Loperamide HCl (Imodium) 2 mg PO PRN PRN PRN Reason: Diarrhea/Loose Stools Last Admin: 07/19/17 21:30 Dose: 2 mg Loratadine (Claritin) 10 mg PO DAILYPRN PRN PRN Reason: Sinus Symptoms Last Admin: 07/18/17 20:57 Dose: 10 mg Metoprolol Succinate (Toprol Xl) 25 mg PO DAILY [facility] Last Admin: 07/20/17 07:59 Dose: 25 mg Mineral Oil/White Petrolatum (Eucerin Cream) 0 gm TOP BIDPRN PRN PRN Reason: Dry Skin Ondansetron HCl (Zofran Odt) 4 mg PO Q6H PRN PRN Reason: Nausea/Vomiting Last Admin: 07/18/17 01:03 Dose: 4 mg Ondansetron HCl (Zofran) 4 mg IVP Q6H PRN PRN Reason: Nausea/Vomiting Last Admin: 07/18/17 04:15 Dose: 4 mg Phenol (Chloraseptic Castell 180 Ml Bot) 0 ml PO PRN PRN PRN Reason: Sore Throat Promethazine HCl (Phenergan) 12.5 mg IM/IV Q6H PRN PRN Reason: Nausea/Vomiting Last Admin: 07/18/17 09:30 Dose: 12.5 mg Senna (Senokot) 2 tab PO HSPRN PRN PRN Reason: Constipation Sodium Chloride (Dixie Nasal Castell 0.65%) 0 ml EA NARE QIDPRN PRN PRN Reason: Nasal Congestion
[2017-07-20] MEDS: HumaLOG 300 UNITS/3 ML VIAL SC PRN (12:17)
[2017-07-20] MEDS: cefTRIAXone\\ROCEPHIN 1 GM, Syringe 0.4 ML in Sterile Water 9.6 ML SLOW IVP SCH (17:12)
--- NOTE | 2017-07-20 20:05 | PRG ---
DATE OF SERVICE: 07/20/2017 SUBJECTIVE: Ms. Kaba says she is feeling better. She says she feels like she is back to her baseli ne. Her hemodynamics have been stable. OBJECTIVE: LUNGS: Clear. HEART: Regular rhythm. ABDOMEN: Soft. IMPRESSION AND PLAN: 1. Status post diabetic ketoacidosis. 2. Metabolic encephalopathy, resolved. 3. Electrolyte imbalance, resolved. 4. Acute kidney injury, resolved. 5. Nodule in the left lower lobe. I reviewed the radiographs. I suppose this could be a nipple sha bernarda. Later today will repeat radiograph with nipple markers or CT without contrast would be reasonab le. There is no new lab other than blood glucoses which are this afternoon 113. We will continue to foll ow.
[2017-07-21] MEDS: HumaLOG 300 UNITS/3 ML VIAL SC PRN (06:32)
[2017-07-21] MEDS: Lisinopril 2.5 MG TAB PO SCH (08:54)
[2017-07-21] MEDS: Insulin Detemir 100 UNITS/ML 25 UNITS in Pre-Filled Syringe 1 EACH SC SCH (08:55)
[2017-07-21] MEDS: Famotidine 20 MG TAB PO SCH (08:55)
[2017-07-21] MEDS: Atorvastatin Calcium 40 MG TAB PO SCH (08:55)
[2017-07-21] MEDS: Heparin 5,000 UNITS/ML VIAL SC SCH (08:56)
[2017-07-21 09:18] VITALS: TEMP 97.5
--- NOTE | 2017-07-21 10:23 | DIS ---
PRIMARY CARE PHYSICIAN: Dr. Diego DATE OF ADMISSION: 07/17/2017 DATE OF DISCHARGE: 07/21/2017 DISCHARGE DISPOSITION: Home. PRIMARY DISCHARGE DIAGNOSES: 1. Diabetes ketoacidosis, type 2. 2. Acute metabolic encephalopathy, resolved. 3. Hypothermia on admission, resolved. 4. Hypotension on admission, resolved. 5. Abnormal electrolytes (hyponatremia, hypophosphatemia, hypomagnesemia), corrected. 6. Acute kidney failure, improved. 7. Community-acquired bacterial pneumonia. 8. Pulmonary nodule, left lower lobe. 9. Elevated troponin due to demand ischemia. SECONDARY DISCHARGE DIAGNOSES: Hypertension, dyslipidemia, peripheral neuropathy, noncompliance with diet and medication, tobacco abuse disorder, diabetes type 2. PRIMARY PROCEDURE/OPERATION: Central line placement. RADIOLOGICAL INVESTIGATION: Chest x-ray showed left lower lobe pulmonary nodule. CT brain based on my review, no acute intracranial process. SIGNIFICANT LABORATORY DATA: WBC 9.3, hemoglobin 9.9, platelet 280, sodium 134, potassium 3.7, BUN 1 9, creatinine 0.86, calcium 7.0, troponin 0.036. Urinalysis: Glucosuria, proteinuria, ketonuria. S bryn 0.29 on discharge. Blood culture and urine culture negative, influenza negative. DISCHARGE MEDICATIONS: Lipitor 40 mg p.o. daily, Omnicef 300 mg p.o. b.i.d. for 5 days, Humalog insu denia as per sliding scale, Levemir insulin 50 units subcu b.i.d., lisinopril 2.5 mg p.o. daily, Toprol -XL 25 mg p.o. daily. CONTRAINDICATIONS: None. CODE STATUS: Full code. INPATIENT CONSULTANTS: Dr. Villatoro was consulted while in hospital because the patient was in [facility]. TEST RESULTS PENDING ON DISCHARGE: None. ALLERGIES: HYDRALAZINE, NAPROXEN. DISCHARGE PLAN: Post hospital, the patient is discharged home and subsequently the patient will foll ow up with primary care physician. The patient is advised to follow up with [facility] for repeat chest x-ray. HOSPITAL COURSE: The patient is a 51-year-old female who was admitted by me. Please see my HPI for further details. She was admitted on 07/17/2017. On admission, she was completely encephalopathic. She was not providing any history. Her routine laboratory parameters were consistent with acute kid hardik failure, abnormal electrolytes. She was having acute metabolic encephalopathy. Her CT brain was normal. Chest x-ray showed left lower lobe pulmonary nodule. She had leukocytosis with left shift. She was also having hypothermia, hypotension. She was admitted to [facility]. She was treated with IV f luid and diabetic ketoacidosis protocol treatment. The patient was also evaluated by pulmonary group . They started her on Rocephin. With IV antibiotic therapy the patient's leukocytosis improved. He r abnormal electrolytes were corrected. Her diabetes was well controlled, her blood pressure improve d and hypothermia resolved. Upon stabilization, this patient was transferred to the medical floor ere we continued to treat her symptoms. By the time of discharge, she is tolerating p.o. well and am bulatory. We started Levemir insulin 25 units subcu b.i.d., but she was taking 15 units subcu b.i.d. at home. At this point patient education about insulin and Humalog insulin sliding scale, discussed with her in detail. This patient has a long history of diabetes and she ran out all her home medica tion and that is why I prescribed all new medication to her pharmacy. The patient is seen and examined at bedside today. Plan of care discussed with the patient and her h usband at bedside. All new medication prescriptions were sent to her pharmacy. REVIEW OF SYSTEMS: Reviewed and negative. PHYSICAL EXAMINATION: VITAL SIGNS: Currently, temperature 97.5, pulse 95, respiratory rate 18, saturation 100%, blood pres sure 148/86, weight 123 pounds. GENERAL: The patient is currently alert, awake, no obvious acute distress. HEAD: Normocephalic, atraumatic. EYES: Pupils round, reactive to light. Extraocular muscles intact. ENT: Oropharynx within normal limits. Moist mucous membranes. NECK: Supple, no JVD, no thyromegaly, no carotid bruit. LUNGS: Clear to auscultation without any rhonchi or rales. CARDIAC: S1, S2 regular without any murmur. ABDOMEN: Soft and benign without any tenderness. EXTREMITIES: No edema. NEUROLOGIC: Nonfocal examination. This patient is on room air. I advised her to avoid smoking and also provided patient education abou t compliance with that treatment and medications as well diet. She will follow up with [facility] for repeat chest x-ray for possible pulmonary nodule. Total time spent on this discharge is more than 30 minutes.
[2017-07-21 11:01] VITALS: BP 160/86
--- NOTE | 2017-07-21 12:51 | PRG ---
DATE OF SERVICE: 07/21/2017 SERVICE: Pulmonary Medicine. INTERVAL HISTORY: The patient is doing great from a respiratory standpoint. She indicates she has r eturned to her usual state of health. She is hoping to go today. She is on room air and breathing c omfortably. Otherwise, there has been no interval change to her condition. PHYSICAL EXAMINATION: VITAL SIGNS: Afebrile, pulse 98, blood pressure 174/96, respirations 16 and saturation 98% on room a ir. GENERAL: Patient is awake and alert, in no apparent distress. LUNGS: Excellent air entry. Dependent crackles are present. HEART: Normal rate and regular. ABDOMEN: Soft, nontender and nondistended. Bowel sounds are positive. MUSCULOSKELETAL: No cyanosis or clubbing. There is no pitting in the bilateral lower extremities. NEUROLOGIC: Grossly nonfocal. LABORATORY DATA: Blood sugar ranges from 119-282. Blood cultures x2, influenza A and B, and urine c ulture are all negative to date. ASSESSMENT: 1. Diabetic ketoacidosis. 2. Metabolic encephalopathy, resolved. 3. Acute kidney injury, resolved. 4. Nodular infiltrate in the left lower lobe. PLAN: The patient will need a repeat chest x-ray in the outpatient setting in 4-6 weeks to verify if this infiltrate has cleared. At this point, she has no further requirements for Inpatient Pulmonary or Critical Care opinion. As such, we will sign off. Please call with additional questions or conc erns.
== END 2017-07-21 11:04 | disposition home or self-care (01) | DRG 637 ==
LOC: ERS 10:50 → IMCU/EMU 12:37 → ONC 07-18 17:35
PROVIDERS: ADMIT Internal Medicine; ATTEND Internal Medicine
DX: E11.10 Type 2 diabetes mellitus with ketoacidosis without coma (principal); G93.41 Metabolic encephalopathy; J15.9 Unspecified bacterial pneumonia; N17.9 Acute kidney failure, unspecified; I24.8 Other forms of acute ischemic heart disease; T68.XXXA Hypothermia, initial encounter; I95.9 Hypotension, unspecified; E83.39 Other disorders of phosphorus metabolism; E83.42 Hypomagnesemia; E87.1 Hypo-osmolality and hyponatremia; E11.42 Type 2 diabetes mellitus with diabetic polyneuropathy; Z79.4 Long term (current) use of insulin; R91.1 Solitary pulmonary nodule; E78.5 Hyperlipidemia, unspecified; I10 Essential (primary) hypertension; F17.210 Nicotine dependence, cigarettes, uncomplicated; Z91.11 Patient's noncompliance with dietary regimen; E87.5 Hyperkalemia; D64.9 Anemia, unspecified; Z91.14 Patient's other noncompliance with medication regimen
CPT/HCPCS: 36415; 36416; 51701; 70450; 71045; 80048; 80053; 80061; 81003; 81015; 82010; 82330; 82553; 82570; 82803; 83605; 83690; 83735; 83930; 84100; 84300; 84484; 85025; 87040; 87086; 93005; 94760; 96361; 96365; 96375; 96376; A4216; A4353; J0696; J1642; J1644; J1815; J2405; J3475; J7050; Q0162

== ENCOUNTER 2017-10-30 18:45 | Inpatient (IN) | payer OTHER, SELFPAY ==
[2017-10-30] MEDS ORDERED: Naloxone HCl 2 mg/2 ml Syringe ONE (19:00)
[2017-10-30 19:15] LABS: Hemoglobin 10.1 g/dL (12.0-16.0); Mean Corpuscular HGB CONC 32.6 g/dL (32.0-36.0); Mean Platelet Volume 8.5 fL (7.4-10.4); Platelet Count 459 thou/uL (130-400); RBC Distribution Width 11.9 % (11.5-14.5); Red Blood Cell (RBC) Count 3.47 mill/uL (4.20-5.40); White Blood Cell (WBC) Count 19.8 thou/uL (4.8-10.8)
[2017-10-30] MEDS ORDERED: fentaNYL Citrate/PF 2,000 MCG in Sodium Chloride 0.9% 60 ML IV SCH (19:15)
[2017-10-30 19:32] LABS: Band 16 % (5-11); Lymphocytes 9 % (21-51); MDiff Complete? YES; Monocytes 7 % (0-10); Neutrophil 68 % (42-75); PLT Morphology Comment Appears Adequate; Polychromasia SLIGHT = 2-3 cells (100X) (0-2/hpf)
[2017-10-30 19:37] LABS: CKMB 3.1 ng/mL (0-6.6); Troponin I 0.046 ng/mL (< 0.028)
[2017-10-30 19:38] LABS: ALT (SGPT) 16 U/L (8-55); AST (SGOT) 14 U/L (5-34); Albumin 2.4 g/dL (3.5-5.0); Alkaline Phosphatase 179 U/L (40-150); BUN (Urea Nitrogen) 43 mg/dL (9.8-20.1); Bilirubin, Total Less than 0.2 mg/dL (0.2-1.2); Calc. Creatinine Clearance 0 mL/min (70-130); Chloride 91 mmol/L (98-107); Estimated GFR-MDRD 19; Globulin 2.7 g/dL (2.4-3.5); Magnesium 1.9 mg/dL (1.6-2.6); Phosphorus 6.6 mg/dL (2.3-4.7); Protein, Total 5.1 g/dL (6.0-8.3); Sodium 127 mmol/L (136-145)
[2017-10-30 19:46] LABS: Carbon Dioxide Less than 8 mmol/L (22-29); Glucose 970 mg/dL (70-105)
[2017-10-30] MEDS ORDERED: Insulin Regular 100 units/100 ml in NS IVPB SCH (20:15)
[2017-10-30] MEDS ORDERED: Piperacillin/Tazobactam 4.5 GM in Sodium Chloride 0.9% 100 ML IVPB SCH (20:15)
--- NOTE | 2017-10-30 20:23 | RAD ---
SUPINE FRONTAL CHEST RADIOGRAPH 10/30/17 COMPARISON: 07/31/17 HISTORY: Central line placement. FINDINGS: Supine imaging is provided, limiting assessment for pleural fluid and pneumothorax. Right sided subcl johnna vascular catheter present, distal tip extending into the neck, incompletely imaged on this exam . No pneumothorax, pleural fluid, focal consolidation or alveolar edema. IMPRESSION: Lines and tubes as above. Right vascular catheter extends into the neck and is incompletely imaged on this exam. POS: [facility]
[2017-10-30 20:27] LABS: CO2 Tension 21.7 mmHg (35.0-45.0); O2 Tension (PaO2) 75.6 mmHg (80.0-100.0); pH, Arterial 7.04 (7.35-7.45)
[2017-10-30 20:28] LABS: Actual Bicarbonate (HCO3a) 5.7 mEq/L (22-26); Base Excess (BEa) -23.2 mEq/L (0 (+/-) 2.5); Calcium, Ionized 1.1 mmol/L (1.12-1.30); Hematocrit-ABG 33.7 % (36.0-47.0); Hemoglobin (Hb) 9.5 g/dL (12.0-16.0)
[2017-10-30 20:30] LABS: Analyzer IN Cardio ER; Puncture Site L RADIAL
[2017-10-30 20:31] LABS: ALV-art Gradient 182.475 (0-20)
--- NOTE | 2017-10-30 20:42 | RAD ---
FRONTAL RADIOGRAPH CHEST 10/30/17 at 8:32 p.m. COMPARISON: 10/30/17, 7:49 p.m. HISTORY: Evaluate central line placement. FINDINGS: A right subclavian vascular catheter is in stable position, extending into the neck. A right internal jugular vascular catheter is present, distal tip overlying the region of the cavoatrial junction. Lena ngs appear clear. IMPRESSION: Lines and tubes as above. POS: [facility]
[2017-10-30] MEDS ORDERED: Clindamycin/D5W 900 mg/50 ml Premix Bag ONE (21:10)
[2017-10-30] MEDS ORDERED: Norepinephrine 8 MG in Sodium Chloride 0.9% 250 ML 242 ML IVPB PRN (21:31)
--- NOTE | 2017-10-30 21:54 | CT ---
CT OF THE BRAIN WITHOUT CONTRAST 10/30/17 COMPARISON: 07/17/17 HISTORY: Altered mental status and facial swelling. TECHNIQUE: Serial axial CT imaging obtained at 5 mm intervals from the lung bases through the pubic symphysis wi thout contrast. FINDINGS: The imaged paranasal sinuses and mastoid air cells demonstrate no acute findings. Osseous structures appear intact. There is no intracranial hemorrhage, midline shift, mass effect or ventricular enlarge ment. IMPRESSION: No intracranial hemorrhage or displaced calvarial fracture. POS: [facility]
--- NOTE | 2017-10-30 22:12 | CT ---
CT SOFT TISSUE NECK WITHOUT CONTRAST 10/30/17 HISTORY: Vomiting, dental infection TECHNIQUE: Serial axial CT imaging at 2.5 mm intervals from the skull base through the thoracic inlet without co ntrast. Coronal and sagittal reformatted imaging obtained. FINDINGS: The lack of contrast media limits assessment of the mucosal structures of the neck, the vascular stru ctures and for lymphadenopathy. There is an endotracheal tube and nasogastric tube present. Incomplet gloria imaged right internal jugular vascular catheter noted. Limited assessment of the brain parenchyma is grossly unremarkable. The imaged paranasal sinuses/mastoid air cells appear grossly unremarkable. The retroantral fat and the parapharyngeal fat appears clear bilaterally. The parotid and submandibu lar glands appear grossly unremarkable. There is mild subcutaneous fat stranding in the left perimandibular/inframandibular region with thick ening of the platysma in this region, which may signify inflammatory/infectious process within the le ft perimandibular soft tissues. Numerous missing mandibular and maxillary teeth noted. There is no discrete periapical lucency involving the left mandibular teeth. The posterior most right mandibular tooth is truncated and there is lucency in the periapical region suggesting periapical ab scess, best seen on axial image 32 and sagittal image 36. There is periapical lucency associated with numerous posterior left maxillary teeth suggesting periapical abscesses as well. No drainable absces s is noted. The imaged lung apices appear unremarkable. The osseous structures demonstrate no worrisome lytic or blastic bone lesion. There is significant facet degenerative change on the right at C4-5. There are prominent level 1 lymph nodes on the left in the inframandibular region measuring up to 7-8 mm. IMPRESSION: Limited assessment without contrast medial. There is soft tissue swelling in the perimandibular regio n on the left which may signify inflammatory change on the basis of an odontogenic infection. There a re scattered periapical lucencies associated with multiple mandibular and maxillary teeth as describe d above. POS: [facility]
[2017-10-30] MEDS ORDERED: Lorazepam 2 MG/ML VIAL SLOW IVP PRN (22:29)
[2017-10-30] MEDS ORDERED: Fentanyl BOLUS 250 ML IVPB PRN (22:29)
[2017-10-30] MEDS ORDERED: DISCONTINUE PREVIOUS NARCOTIC PAIN MEDICATIONS AND BENZODIAZEPINES FS SCH (22:29)
[2017-10-30] MEDS ORDERED: Morphine 4 MG/ML VIAL SLOW IVP PRN (22:29)
[2017-10-30] MEDS ORDERED: Propofol BOLUS 1,000 MG/100 ML VIAL IV PRN (22:29)
[2017-10-30] MEDS: Propofol 1,000 MG/100 ML VIAL IV PRN (22:42)
[2017-10-30] MEDS ORDERED: Sodium Chloride 0.9% 1,000 ML IV PRN ×3 (23:03)
[2017-10-30] MEDS ORDERED: NS 0.9% w/ 20 MEQ KCL 1,000 ML IV PRN ×2 (23:03)
[2017-10-30] MEDS ORDERED: Dextrose 5 %-0.45 % NaCl 1,000 ML IV PRN (23:03)
[2017-10-30] MEDS ORDERED: CCU Electrolyte Replacement 1 EACH IVPB SCH (23:03)
[2017-10-30] MEDS ORDERED: Ondansetron HCl/PF 4 MG/2 ML Vial IVP PRN (23:03)
[2017-10-30] MEDS ORDERED: Magnesium Oxide 400 MG TAB PO PRN ×2 (23:17)
[2017-10-30] MEDS ORDERED: CCU ELECTROLYTE REPLACEMENT PROTOCOL FS PRN (23:17)
[2017-10-30] MEDS ORDERED: Potassium Chloride 40 MEQ in Premix Bag 1 BAG IVPB PRN (23:17)
[2017-10-30] MEDS ORDERED: Potassium Chloride 40 MEQ in Sodium Chloride 0.9% 250 ML 250 ML IVPB PRN (23:17)
[2017-10-30] MEDS ORDERED: Potassium Chloride 20 MEQ TAB PO PRN (23:17)
[2017-10-30] MEDS ORDERED: Magnesium 2 GM/NS 0.9% 100 ML 2 GM in Premix Bag 1 BAG IVPB PRN (23:17)
[2017-10-30] MEDS ORDERED: Potassium Phosphate 12 MMOL in Sodium Chloride 0.9% 250 ML 250 ML IV PRN (23:17)
[2017-10-30] MEDS ORDERED: Potassium Phosphate 9 MMOL in Sodium Chloride 0.9% 100 ML IVPB PRN (23:17)
[2017-10-30] MEDS ORDERED: Potassium Phosphate 15 MMOL in Sodium Chloride 0.9% 250 ML 250 ML IV PRN (23:17)
[2017-10-30] MEDS: Sodium Chloride 0.9% 1,000 ML IV PRN (23:19)
[2017-10-30] MEDS: Sodium Chloride 0.9% 1,000 ML IV SCH (23:21)
[2017-10-30 23:22] LABS: Actual Bicarbonate (HCO3a) 5.6 mEq/L (22-26); Base Excess (BEa) -20.9 mEq/L (0 (+/-) 2.5); CO2 Tension 15.4 mmHg (35.0-45.0); Hematocrit-ABG 31.4 % (36.0-47.0); Hemoglobin (Hb) 8.6 g/dL (12.0-16.0); O2 Tension (PaO2) 328.5 mmHg (80.0-100.0); pH, Arterial 7.18 (7.35-7.45)
[2017-10-30 23:23] LABS: Calcium, Ionized 1.2 mmol/L (1.12-1.30); Puncture Site LRA
[2017-10-30] MEDS ORDERED: Sodium Bicarb 50 MEQ/50 ML Abboject 8.4% SYRINGE IVP SCH (23:30)
[2017-10-30 23:33] LABS: Glucose 835 mg/dL (70-105)
[2017-10-30 23:49] LABS: BUN (Urea Nitrogen) 42 mg/dL (9.8-20.1); Calc. Creatinine Clearance 24 mL/min (70-130); Calcium 7.4 mg/dL (7.8-10.44); Chloride 97 mmol/L (98-107); Estimated GFR-MDRD 18; Potassium 3.5 mmol/L (3.5-5.1); Sodium 132 mmol/L (136-145)
[2017-10-30 23:51] LABS: Lactic Acid 1.9 mmol/L (0.5-2.2)
[2017-10-30 23:59] LABS: Carbon Dioxide Less than 8 mmol/L (22-29); Glucose 773 mg/dL (70-105)
--- NOTE | 2017-10-31 01:13 | HP ---
CHIEF COMPLAINT: Altered mental status. HISTORY OF PRESENT ILLNESS: This is a 51-year-old female with known history of insulin-dependent diabetes, heroin use, who was recently seen for a dental infection who presented with an altered mental status. At the time of my evaluation, the patient is currently intubated and sedated, unable to give much of the history. From the emergency room records, it appears that the patient was found to have decreased mental status as well as severe acidosis and was subsequently intubated in the emergency department who placed on ventilator for support. She was also noted to have component of facial swelling initially as well. Family at bedside () is unable to provide much further history as he found her unresponsive and activated the EMS system. REVIEW OF SYSTEMS: Unable to obtain secondary to the patient's mental status and lack of family at bedside. PAST MEDICAL HISTORY: 1. Per prior records, the patient has a history of insulin-dependent diabetes, medication and noncompliance. 2. Hypertension. 3. Hyperlipidemia. 4. Tobacco use. 5. Illicit drug use including heroin. 6. Peripheral neuropathy. 7. Status post cholecystectomy. 8. Status post hysterectomy. HOME MEDICATIONS: From the unconfirmed list in the EMR, it appears that the patient is supposed to be on a home regimen including, 1. Insulin detemir 50 units q.a.m. and q.p.m. 2. Humalog sliding scale. 3. Atorvastatin 40 mg p.o. daily. 4. Metoprolol 25 mg p.o. daily. 5. Lisinopril 2.5 mg p.o. daily. 6. Cefdinir (Omnicef) 300 mg p.o. b.i.d., which I take to be the patient's recent antibiotics prescribed for her dental infection. ALLERGIES: Include HYDRALAZINE and NAPROXEN, unknown reaction to both. SOCIAL HISTORY: Discussed with patient's at bedside who endorses that the patient would wish to be FULL CODE at this point in time. He also notes she has been intubated before on prior hospitalizations as well. Patient currently unable to participate in any medical decision-making process. Patient has a prior known history of illicit drug use and tobacco use. No documented history of alcohol use however. PHYSICAL EXAMINATION: GENERAL: The patient is intubated, sedated, lying in the hospital bed. HEENT: Endotracheal tube appears to be in grossly appropriate position externally. Moist mucous membranes. Pupils equal and reactive. CARDIOVASCULAR: S1, S2. Pulses 2+ bilateral upper extremities, no pitting pedal edema. RESPIRATORY: Coarse ventilator sounds throughout, limited anterior examination. ABDOMEN: Positive bowel sounds, soft with Loo noted draining light yellow urine. LABORATORY DATA AND IMAGING: WBC 19.8, hemoglobin 10.1, hematocrit 30.9, platelets 459. Initial ABG includes pH of 7.04, pCO2 of 21.7, pO2 of 75.6. Sodium 127, potassium 4.0, chloride 91, bicarbonate less than 8, BUN 43, creatinine 2.7, glucose 970. Lactic acid initial 3.4, calcium 8.0, phosphorus 6.6, magnesium 1.9, total bilirubin 0.2, AST 14, ALT 16, alkaline phosphatase 179. Troponin 0.046, total protein 5.1, albumin 2.4. Beta hydroxybutyrate 13.84. IMAGIN. On 10/30/2017 CT of the neck, impression, "Limited assessment without contrast media. There is soft tissue swelling in the perimandibular region on the left, which may signify inflammatory change on the basis of an odontogenic infection. There are scattered periapical lucencies associated with multiple mandibular and maxillary teeth that as described above." Of note, earlier in the findings, no drainable abscess is noted. There is periapical lucency associated with numerous posterior left maxillary teeth suggesting periapical abscesses as well. 2. On 10/30/2017 chest x-ray, impression, "Lines and tubes as above" 3. On 10/30/2017, brain CT, impression, "No intracranial hemorrhage or displaced calvarial fracture." ASSESSMENT AND PLAN: A 51-year-old female presenting with altered mental status. 1. 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 2. Sepsis. Patient meeting criteria for sepsis on basis of leukocytosis, metabolic encephalopathy, and etiology of possible odontogenic infection. CT of the neck demonstrating no drainable abscesses, but question of maxillary periapical abscess of the maxillary teeth. Patient has been empirically placed on Zosyn. IV fluids. Question of whether or not any further surgical or dental procedure would be beneficial in management. 3. Dental infection. See discussion above. 4. Leukocytosis, likely secondary to the above. 5. Diabetic ketoacidosis and an insulin-dependent diabetic with history of medication noncompliance and active infection. Will initiate diabetic ketoacidosis protocol including insulin drip. Patient is noted to have significant gap with very low bicarbonate; will initiate prn supplementation. 1amp of bicarbonate at this point in time and re-check serial BMP 6. Acute kidney injury in the setting of sepsis, diabetic ketoacidosis. We will continue her IV hydration. Closely monitor the patient's renal function. Obtain a renal ultrasound. Consult Nephrology. 7. Acidosis with lactic acidosis in the setting of diabetic ketoacidosis and sepsis. Will recheck for actic acid clearance. 8. Elevated troponin suspect likely secondary to the issues above. We will continue to monitor as well. 9. History of IV drug use. Suspect this may compound the patient's opioid and narcotic tolerance. We will have to closely monitor particularly when weaning. Patient currently sedated, mitigating any potential withdrawal symptoms. DIET: Currently is n.p.o. The patient is intubated if there is a need for prolonged intubation to consider tube feeds. ACTIVITY: Currently on bed rest secondary to ventilator support. Deep venous thrombosis prophylaxis with heparin. Patient is admitted to the CCU. Greater than 45 minutes critical care time spent coordinating care for the patient. JULIANNAD
[2017-10-31] MEDS: Sodium Chloride 0.9% 1,000 ML IV PRN (01:26)
[2017-10-31] MEDS: D5 1/2 NS w/20 mEq KCL 1,000 ML IV PRN ×3 (02:03→15:03)
[2017-10-31 02:42] LABS: Glucose 678 mg/dL (70-105)
[2017-10-31 03:43] LABS: #Eosinphils 0.1 thou/uL (0.0-0.7); #Lymphocytes 3.1 thou/uL (1.20-3.40); #Monocytes 0.9 thou/uL (0.11-0.59); #Neutrophils 13.7 thou/uL (1.40-6.50); %Basophils 0.3 % (0.0-1.0); %Eosinophils 0.3 % (0.0-10.0); %Lymphocytes 17.6 % (21.0-51.0); %Monocytes 4.9 % (0.0-10.0); Hemoglobin 8.6 g/dL (12.0-16.0); Mean Corpuscular HGB CONC 35.3 g/dL (32.0-36.0); Mean Corpuscular Hemoglobin 29.2 pg (27.0-31.0); Mean Corpuscular Volume 82.6 fl (81.0-99.0); Mean Platelet Volume 7.4 fL (7.4-10.4); Platelet Count 361 thou/uL (130-400); RBC Distribution Width 11.6 % (11.5-14.5); Red Blood Cell (RBC) Count 2.93 mill/uL (4.20-5.40); White Blood Cell (WBC) Count 17.8 thou/uL (4.8-10.8)
[2017-10-31 03:45] LABS: Anion Gap 19 mmol/L (10-20); BUN (Urea Nitrogen) 41 mg/dL (9.8-20.1); Calc. Creatinine Clearance 25 mL/min (70-130); Calcium 6.9 mg/dL (7.8-10.44); Carbon Dioxide 15 mmol/L (22-29); Chloride 106 mmol/L (98-107); Estimated GFR-MDRD 19; Glucose 493 mg/dL (70-105); Potassium 3.8 mmol/L (3.5-5.1); Sodium 136 mmol/L (136-145)
[2017-10-31 07:17] LABS: Puncture Site LRA; pH, Arterial 7.54 (7.35-7.45)
[2017-10-31 07:18] LABS: Actual Bicarbonate (HCO3a) 15.4 mEq/L (22-26); Base Excess (BEa) -6.1 mEq/L (0 (+/-) 2.5); Hematocrit-ABG 20.4 % (36.0-47.0); Hemoglobin (Hb) 7.3 g/dL (12.0-16.0); O2 Tension (PaO2) 186.9 mmHg (80.0-100.0)
[2017-10-31] MEDS: Propofol 1,000 MG/100 ML VIAL IV PRN (07:48)
[2017-10-31 07:51] LABS: Anion Gap 16 mmol/L (10-20); BUN (Urea Nitrogen) 40 mg/dL (9.8-20.1); Calc. Creatinine Clearance 24 mL/min (70-130); Calcium 7.2 mg/dL (7.8-10.44); Carbon Dioxide 17 mmol/L (22-29); Chloride 110 mmol/L (98-107); Estimated GFR-MDRD 18; Glucose 220 mg/dL (70-105); Sodium 140 mmol/L (136-145)
[2017-10-31 07:58] LABS: Potassium 2.8 mmol/L (3.5-5.1)
[2017-10-31] MEDS ORDERED: Diabetic Tussin 200 MG/10 ML UDCUP PER TUBE PRN (08:10)
[2017-10-31] MEDS ORDERED: Senokot 8.6 MG TAB PER TUBE PRN (08:10)
[2017-10-31] MEDS ORDERED: Mag-Al 1200 mg/1200 mg/30 ML UDCUP PER TUBE PRN (08:10)
[2017-10-31] MEDS ORDERED: Eucerin (Mineral Oil/Petrolatum,White) 30 gm Jar TOP PRN (08:10)
[2017-10-31] MEDS ORDERED: Acetaminophen 325 MG TAB PER TUBE PRN (08:10)
[2017-10-31] MEDS ORDERED: Bisacodyl 10 MG SUPP PR PRN (08:10)
[2017-10-31] MEDS ORDERED: Artificial Tears 18 DROP/0.9 ML EA EYE PRN (08:10)
[2017-10-31] MEDS ORDERED: Ventilator Sedation Protocol 1 EACH FS ONE (08:13)
--- NOTE | 2017-10-31 08:14 | ULT ---
RENAL ULTRASOUND: HISTORY: Acute kidney insufficiency. FINDINGS: Both kidneys measure approximately 12 cm in length. There is no evidence of hydronephrosis. Cortica l echogenicity appears normally preserved. No mass lesion is seen. The urinary bladder is contracted with Loo catheter in place. IMPRESSION: Unremarkable renal ultrasound. POS: [facility]
[2017-10-31] MEDS ORDERED: Norepinephrine 8 MG/0.9% NS 250 ML IVPB SCH (08:15)
[2017-10-31] MEDS ORDERED: Saccharomyces boulardii 250 MG CAP PER TUBE SCH (09:00)
[2017-10-31] MEDS ORDERED: Famotidine 40 MG/4 ML VIAL SLOW IVP SCH (09:00)
[2017-10-31] MEDS ORDERED: Famotidine/PF 20 mg/2ml Vial SLOW IVP SCH (09:00)
[2017-10-31] MEDS ORDERED: Enoxaparin Sodium 40 MG/0.4 ML SYRINGE SC SCH (09:00)
--- NOTE | 2017-10-31 09:07 | RAD ---
PORTABLE CHEST 1 VIEW: Date: 10/31/17 Time: 0739 hours HISTORY: Respiratory failure. FINDINGS/IMPRESSION: No significant interval change is seen since the previous night's exam at 8:32 PM. POS: [facility]
[2017-10-31] MEDS: Sodium Chloride 0.9% 1,000 ML IV SCH ×2 (09:43→18:30)
[2017-10-31] MEDS: Heparin 5,000 UNITS/ML VIAL SC SCH ×3 (09:48→20:47)
[2017-10-31] MEDS: Piperacillin/Tazobactam 2.25 GM in Sodium Chloride 0.9% 100 ML IVPB SCH ×3 (09:48→20:47)
[2017-10-31] MEDS ORDERED: DC Sedation Protocol FS ONE (11:45)
[2017-10-31] MEDS ORDERED: Clindamycin/D5W 300 MG/50 ML BAG IVPB SCH (12:00)
--- NOTE | 2017-10-31 12:03 | CON ---
DATE OF CONSULTATION: 10/31/2017 A 51-year-old female with history of uncontrolled diabetes who presented with altered mental status, elevated blood sugar, renal failure, respiratory failure. She is now intubated on the vent. History as per the ER note, when she arrived sats were 100% room air, respiration rate was 20, blood pressure 109/55. She has medical noncompliance. She apparently was intubated for respiratory failure and hypertension because of severe metabolic aci dosis. During the course of her workup, she had a CT done of the neck with soft tissue swelling in the zoraida mandibular region. Consider maybe like an abscess, possible. She had a CT done of the brain which showed no intracranial process. Chest x-ray post-intubation parish ws no acute infiltrates. PAST SURGICAL HISTORY: Previous substance abuse, tobacco abuse, alcohol abuse, diabetes, uncontrolle d hypertension, poor compliance with medication. PRESUMED MEDICATIONS FROM HOME: Includes Lipitor 40, Toprol XL 25, lisinopril 2.5, Levemir 50 units twice a day. ALLERGIES: NAPROSYN. REVIEW OF SYSTEMS: Otherwise unobtainable. PHYSICAL EXAMINATION: GENERAL: She is intubated on the vent on low dose Levophed. VITAL SIGNS: Pulse 100, blood pressure 109/62, sats 100%, ____ set at 10. Need to decrease her catalina tion. She does move all 4 extremities. HEENT: Pupils are equal. CHEST: Chest revealed decreased breath sounds, no wheezing. CARDIAC: Normal S1, S2, no gallops. ABDOMEN: Soft, no masses. LABORATORY: PH is 7.54, pCO2 was 81.8, pCO2 is 186, rate of 30. Vent being adjusted, potassium 2.8, creatinine is 2.8, BUN 40, glucose 258. A renal ultrasound was performed which showed unremarkable. IMPRESSION: 1. Hypotension. 2. Possibly sepsis. 3. Multiple carious teeth. 4. Uncontrolled diabetes. 5. Previous history of substance abuse. 6. Tobacco abuse. PLAN: Clindamycin and Zosyn were initiated. Hold sedation, try and wean if possible. Aggressive hydration. I will follow. Forty-five minutes critical care time.
--- NOTE | 2017-10-31 12:17 | PDOC.PN ---
- Subjective Encounter Start Date: 10/31/17 Encounter Start Time: 08:10 -: old records requested/rev pt is intubated, off sedation Patient seen and examined for DKA. Noted overnight events - Objective Resuscitation Status: Resuscitation Status FULL:Full Resuscitation MAR Reviewed: Yes Vital Signs & Weight: Vital Signs (12 hours) Temp Pulse Resp BP Pulse Ox 10/31/17 11:43 103 H 15 92 L 10/31/17 10:30 96 85/47 L 10/31/17 10:00 10 L 10/31/17 08:00 100.7 F H 96 30 H 100 10/31/17 06:38 104 H 104/61 10/31/17 06:00 30 H 10/31/17 05:00 99.8 F H 10/31/17 04:00 30 H 10/31/17 02:00 30 H Weight Weight 138 lb 14.259 oz Most Recent Monitor Data Heart Rate from ECG 96 NIBP 83/47 NIBP BP-Mean 58 Respiration from ECG 10 SpO2 97 I&O: 10/30/17 10/31/17 11/01/17 06:59 06:59 06:59 Intake Total 3291.6 522.4 Output Total 1018 70 Balance 2273.6 452.4 Result Diagrams: 10/31/17 03:13 10/31/17 07:21 Additional Labs: Accuchecks 10/31/17 10/31/17 10/31/17 11:49 10:13 09:07 POC Glucose 95 205 H 268 H 10/31/17 10/31/17 10/31/17 08:30 07:24 06:37 POC Glucose 258 H 220 H 350 H 10/31/17 10/31/17 10/31/17 05:19 04:17 03:10 POC Glucose 500 H 499 H Greater than 550 H* 10/30/17 10/30/17 22:09 20:42 POC Glucose Greater than 550 H* Greater than 550 H* Radiology Reviewed by me: Yes (chest xray) EKG Reviewed by me: Yes (nsr) Phys Exam - Physical Examination intubated HEENT: PERRLA, sclera anicteric Neck: no JVD, supple Respiratory: no wheezing, no rales, no rhonchi Cardiovascular: RRR, no significant murmur, no rub Gastrointestinal: soft, no distention, positive bowel sounds Musculoskeletal: no edema, pulses present fitch+ Lymphatic: no nodes Skin: no rash, normal turgor Dx/Plan (1) Acute metabolic encephalopathy Code(s): G93.41 - METABOLIC ENCEPHALOPATHY Status: Acute Comment: (2) Acute renal failure (ARF) Status: Acute Comment: (3) Acute respiratory failure with hypoxia Code(s): J96.01 - ACUTE RESPIRATORY FAILURE WITH HYPOXIA Status: Acute (4) DKA, type 2 Code(s): E11.10 - TYPE 2 DIABETES MELLITUS WITH KETOACIDOSIS WITHOUT COMA Status: Acute (5) Demand ischemia Code(s): I24.8 - OTHER FORMS OF ACUTE ISCHEMIC HEART DISEASE Status: Acute (6) Dental infection Code(s): K04.7 - PERIAPICAL ABSCESS WITHOUT SINUS Status: Acute (7) Diabetic ketoacidosis Code(s): E11.10 - TYPE 2 DIABETES MELLITUS WITH KETOACIDOSIS WITHOUT COMA Status: Acute Comment: (8) Hypokalemia Code(s): E87.6 - HYPOKALEMIA Status: Acute (9) Hyponatremia Code(s): E87.1 - HYPO-OSMOLALITY AND HYPONATREMIA Status: Acute (10) Lactic acidosis Code(s): E87.2 - ACIDOSIS Status: Acute (11) Sepsis with acute organ dysfunction Code(s): A41.9 - SEPSIS, UNSPECIFIED ORGANISM; R65.20 - SEVERE SEPSIS WITHOUT SEPTIC SHOCK Status: Acute (12) HTN (hypertension) Code(s): I10 - ESSENTIAL (PRIMARY) HYPERTENSION Status: Chronic (13) Hyperlipidemia Code(s): E78.5 - HYPERLIPIDEMIA, UNSPECIFIED Status: Chronic (14) Noncompliance with diet and medication regimen Code(s): Z91.11 - PATIENT'S NONCOMPLIANCE WITH DIETARY REGIMEN; Z91.14 - PATIENT 'S OTHER NONCOMPLIANCE WITH MEDICATION REGIMEN Status: Chronic (15) Peripheral neuropathy Code(s): G62.9 - POLYNEUROPATHY, UNSPECIFIED Status: Chronic (16) Tobacco abuse Code(s): Z72.0 - TOBACCO USE Status: Chronic (17) Type II diabetes mellitus Status: Chronic - Plan cont current plan of care, continue antibiotics * continue renally adjusted zosyn, clindamycin added * will consult oral surgeon before discharge when stable * medication reviewed as below * symptomatic treatment * continue insulin drip * continue vent management as per pulmonary * follow culture * monitor labs. * correct abnormal electrolytes Review of Systems - Review of Systems Other: unable to review due to intubated state - Medications/Allergies Allergies/Adverse Reactions: Allergies Allergy/AdvReac Type Severity Reaction Status Date / Time hydralazine Allergy Verified 07/17/17 14:46 naproxen [From Naprosyn] Allergy Verified 07/17/17 14:46 Medications: Current Medications Acetaminophen (Tylenol) 650 mg PER TUBE Q4H PRN PRN Reason: Headache/Fever or Mild Pain Al Hydroxide/Mg Hydroxide (Maalox) 15 ml PER TUBE Q4H PRN PRN Reason: Heartburn or Indigestion Albuterol/Ipratropium (Duoneb) 3 ml NEB [id number] PRN PRN Reason: SOB &/or Wheezing Albuterol/Ipratropium (Duoneb) 3 ml NEB [id number] SANDI Artificial Tears (Tears Naturale) 0 drop EA EYE PRN PRN PRN Reason: Dry Eyes Bisacodyl (Dulcolax) 10 mg WV DAILYPRN PRN PRN Reason: Constipation Famotidine (Pepcid) 20 mg SLOW IVP DAILY SANDI Guaifenesin (Robitussin Sf) 200 mg PER TUBE Q4H PRN PRN Reason: Cough Heparin Sodium (Porcine) (Heparin) 5,000 units SC TID SANDI Last Admin: 10/31/17 09:48 Dose: 5,000 units Dextrose/Sodium Chloride (D5 1/2 Ns) 1,000 mls @ 250 mls/hr IV .Q4H PRN; Protocol PRN Reason: Step 4 of DKA Protocol Potassium Chloride/Dextrose/Sod Cl (D5 1/2 Ns W/20 Meq Kcl) 1,000 mls @ 250 mls /hr IV .Q4H PRN; Protocol PRN Reason: Step 4 of DKA Protocol Last Admin: 10/31/17 08:08 Dose: 1,000 mls Insulin Human Regular 100 (units/ Sodium Chloride) 101 mls @ 0 mls/hr IVPB INF SANDI; Titrate PRN Reason: Protocol Sodium Chloride (Normal Saline 0.9%) 1,000 mls @ 500 mls/hr IV .Q2H PRN; Protocol PRN Reason: Step 1 of DKA Protocol Last Admin: 10/30/17 23:19 Dose: 1,000 mls Sodium Chloride (Normal Saline 0.9%) 1,000 mls @ 1,000 mls/hr IV .Q1H PRN; Protocol PRN Reason: Step 1 of DKA Protocol Sodium Chloride (Normal Saline 0.9%) 1,000 mls @ 250 mls/hr IV .Q4H PRN; Protocol PRN Reason: SEE STEP 3 OF DKA PROTOCOL Sodium Chloride (Normal Saline 0.9%) 1,000 mls @ 500 mls/hr IV .Q2H PRN; Protocol PRN Reason: Step 2 of DKA Protocol Sodium Chloride (Normal Saline 0.9%) 1,000 mls @ 100 mls/hr IV .Q10H SANDI Last Admin: 10/31/17 09:43 Dose: Not Given Potassium Chloride/Sodium Chloride (Ns 0.9% W/ 20 Meq Kcl) 1,000 mls @ 500 mls/ hr IV .Q2H PRN; Protocol PRN Reason: Step 2 of DKA Protocol Last Admin: 10/31/17 02:06 Dose: 1,000 mls Potassium Chloride/Sodium Chloride (Ns 0.9% W/ 20 Meq Kcl) 1,000 mls @ 250 mls/ hr IV .Q4H PRN; Protocol PRN Reason: SEE STEP 3 OF DKA PROTOCOL Last Admin: 10/31/17 06:27 Dose: 1,000 mls Potassium Chloride 40 meq/ (Sodium Chloride) 270 mls @ 135 mls/hr IVPB ASDIR PRN PRN Reason: FOR SERUM K+ 2.5 - 3.5 Potassium Chloride 40 meq/ (Device) 100 mls @ 50 mls/hr IVPB ASDIR PRN PRN Reason: FOR SERUM K+ 2.5 - 3.5 Last Admin: 10/31/17 10:44 Dose: 100 mls Magnesium Sulfate 1 gm/ Sodium (Chloride) 102 mls @ 102 mls/hr IV PRN PRN PRN Reason: MAG LEVEL 1.4 - 2.0 Magnesium Sulfate 2 gm/ Device 100 mls @ 100 mls/hr IVPB ASDIR PRN PRN Reason: MAGNESIUM < 1.4 Potassium Phosphate 9 mmol/ (Sodium Chloride) 103 mls @ 25.75 mls/hr IVPB ASDIR PRN PRN Reason: Phosphate 1.0-1.8 Potassium Phosphate 12 mmol/ (Sodium Chloride) 254 mls @ 63.5 mls/hr IV ASDIR PRN PRN Reason: Serum phosphate 0.5-0.9 Potassium Phosphate 15 mmol/ (Sodium Chloride) 255 mls @ 63.75 mls/hr IV ASDIR PRN PRN Reason: Serum Phos < 0.5 Norepinephrine Bitartrate (Levophed) 250 mls @ 0 mls/hr IVPB INF SANDI; Titrate PRN Reason: Protocol Piperacillin Sod/Tazobactam (Sod 2.25 gm/ Sodium Chloride) 100 mls @ 200 mls/ hr IVPB 0300,0900,1500,2100 SANDI Last Admin: 10/31/17 09:48 Dose: 100 mls Clindamycin Phosphate/Dextrose (300 mg/ Device) 50 mls @ 100 mls/hr IVPB 0400, 1000,1600,2200 SANDI Lactulose (Lactulose) 10 gm PO DAILYPRN PRN PRN Reason: Constipation Magnesium Oxide (Magnesium Oxide) 400 mg PO BIDPRN PRN PRN Reason: FOR SERUM MAG 1.4 - 2.0 Magnesium Oxide (Magnesium Oxide) 800 mg PO PRN PRN PRN Reason: FOR SERUM MAG < 1.4 Mineral Oil/White Petrolatum (Eucerin Cream) 0 gm TOP BIDPRN PRN PRN Reason: Dry Skin Miscellaneous Medication (Phos-Nak) 1 pkt PO TIDPRN PRN PRN Reason: FOR PHOS LEVEL 1.0 - 1.8 Miscellaneous Medication (Phos-Nak) 2 pkt PO TIDPRN PRN PRN Reason: FOR PHOS LEVEL 0.5 - 1.0 Ondansetron HCl (Zofran) 4 mg IVP Q6H PRN PRN Reason: Nausea/Vomiting Potassium Chloride (K-Dur) 40 meq PO ASDIR PRN PRN Reason: FOR SERUM K+ 2.5 - 3.5 Potassium Chloride (Klor-Con) 40 meq PER TUBE ASDIR PRN PRN Reason: FOR SERUM K+ 2.5-3.5 Propofol (Diprivan) 1,000 mg IV INF PRN; Protocol PRN Reason: TO ACHIEVE GOAL RASS Stop: 11/29/17 22:29 Last Admin: 10/31/17 07:48 Dose: 1,000 mg Saccharomyces Boulardii (Florastor) 250 mg PER TUBE DAILY [facility] Last Admin: 10/31/17 09:48 Dose: 250 mg Senna (Senokot) 2 tab PER TUBE HSPRN PRN PRN Reason: Constipation Sodium Chloride (Flush - Normal Saline) 10 ml IVF Q12HR [facility] Last Admin: 10/31/17 09:49 Dose: 10 ml Sodium Chloride (Flush - Normal Saline) 10 ml IVF PRN PRN PRN Reason: Saline Flush
[2017-10-31 12:25] LABS: Anion Gap 11 mmol/L (10-20); BUN (Urea Nitrogen) 42 mg/dL (9.8-20.1); Calc. Creatinine Clearance 24 mL/min (70-130); Carbon Dioxide 22 mmol/L (22-29); Chloride 112 mmol/L (98-107); Estimated GFR-MDRD 18; Glucose 97 mg/dL (70-105); Sodium 142 mmol/L (136-145)
[2017-10-31] MEDS: Clindamycin/D5W 300 MG in Premix Bag 1 BAG IVPB SCH ×3 (13:21→22:20)
[2017-10-31 15:47] LABS: Amphetamine Detected (NotDetected); Medtox Reader # READER 4; Methamphetamine Detected (NotDetected)
[2017-10-31 15:48] LABS: Barbiturates Screen Not Detected (NotDetected); Benzodiazepine Screen Not Detected (NotDetected); Cocaine Metabolite Screen Not Detected (NotDetected); Medtox Control Line Valid? VALID (VALID); Methadone Not Detected (NotDetected); Opiate Screen Not Detected (NotDetected); Oxycodone Screen Not Detected (NotDetected); Phencyclidine (PCP) Not Detected (NotDetected); THC/Cannabinoid Screen Not Detected (NotDetected); Tricyclic Screen Not Detected (NotDetected)
[2017-10-31 17:04] LABS: Anion Gap 12 mmol/L (10-20); BUN (Urea Nitrogen) 38 mg/dL (9.8-20.1); Calc. Creatinine Clearance 25 mL/min (70-130); Calcium 7.2 mg/dL (7.8-10.44); Carbon Dioxide 19 mmol/L (22-29); Chloride 111 mmol/L (98-107); Estimated GFR-MDRD 19; Glucose 157 mg/dL (70-105); Sodium 138 mmol/L (136-145)
[2017-10-31] MEDS ORDERED: Dextrose 5% in Water 1,000 ML IV PRN (18:50)
[2017-10-31] MEDS ORDERED: Dextrose 50% Abboject 50 ML SYRINGE IVP PRN (18:50)
[2017-10-31] MEDS ORDERED: Insulin Detemir 100 UNITS/ML 10 UNITS in Pre-Filled Syringe 1 EACH SC SCH (19:00)
[2017-10-31] MEDS: 1/2 NS w/KCL 20 mEq 1,000 ML IV SCH (22:20)
[2017-11-01] MEDS: HumaLOG 300 UNITS/3 ML VIAL SC PRN ×2 (00:37→11:58)
--- NOTE | 2017-11-01 02:36 | CON ---
DATE OF CONSULTATION: 10/31/2017 CONSULTING PHYSICIAN: Dr. Dann Verde. REQUESTING PHYSICIAN: Dr. Gagnon. REASON FOR CONSULTATION: Acute kidney injury, metabolic acidosis. IMPRESSION: 1. Acute kidney injury. This is likely prerenal in the context of intravascular depletion. However , this is being compounded by cytokine-mediated acute tubular necrosis due to sepsis. 2. Severe metabolic acidosis in the context of diabetic ketoacidosis with reduced GFR. 3. Sepsis. PLAN: 1. Hemodynamic support with aggressive IV fluid resuscitation to expand intravascular volume. 2. Avoid potentially nephrotoxic agents including contrast. 3. Renally dose all medications. 4. Further management will be dependent on the clinical course. HISTORY OF PRESENT ILLNESS: History is that of a 51-year-old female patient with a significant histo ry of heroin usage, who presented here with evidence of sepsis and noted to be severely acidotic in t he context of severe hyperglycemia (diabetic ketoacidosis). I could not get much of any history from this patient, who is already sedated and intubated. The patient noted on presentation with elevated creatinine of 2.79, so the need for this renal consultation. PAST MEDICAL HISTORY: Significant for, 1. Diabetes mellitus, insulin-dependent. 2. Illicit drug use. 3. Hypertension. 4. Dyslipidemia. MEDICATIONS: Reviewed and as documented on [facility]. SOCIAL HISTORY: Significant for substance abuse including tobacco and heroin. ALLERGIES: HYDRALAZINE and NAPROXEN. REVIEW OF SYSTEMS: Could not be done given the fact this patient is sedated and intubated. PHYSICAL EXAMINATION: GENERAL: The patient is noted to be on life support with the following vital signs. VITAL SIGNS: Blood pressure 122/60, pulse of 107, respiratory rate of 16, patient is on pressors. HEENT EXAMINATION: Remarkable for endotracheal tube in place. CARDIOVASCULAR SYSTEM: First and second heart sounds were heard. RESPIRATORY SYSTEM: Reveals vented sounds. DIGESTIVE SYSTEM: Digestive system revealed a benign abdomen with positive bowel sounds. EXTREMITIES: No peripheral edema. SKIN EXAMINATION: No new gross rash. In summary, a 51-year-old female patient, who presented here septic, noted with elevated creatinine a nd severe hyperglycemia. Thank you for this consultation. We will follow with you.
[2017-11-01] MEDS: Clindamycin/D5W 300 MG in Premix Bag 1 BAG IVPB SCH ×4 (03:00→21:27)
[2017-11-01] MEDS: Piperacillin/Tazobactam 2.25 GM in Sodium Chloride 0.9% 100 ML IVPB SCH ×4 (04:32→21:27)
[2017-11-01 04:51] LABS: #Basophils 0.1 thou/uL (0.0-0.2); #Eosinphils 0.1 thou/uL (0.0-0.7); #Lymphocytes 2.2 thou/uL (1.20-3.40); #Monocytes 0.8 thou/uL (0.11-0.59); #Neutrophils 10.1 thou/uL (1.40-6.50); %Basophils 0.6 % (0.0-1.0); %Eosinophils 0.4 % (0.0-10.0); %Lymphocytes 16.8 % (21.0-51.0); %Neutrophils 76.1 % (42.0-75.0); Hemoglobin 7.5 g/dL (12.0-16.0); Mean Corpuscular HGB CONC 33.9 g/dL (32.0-36.0); Mean Corpuscular Hemoglobin 28.9 pg (27.0-31.0); Mean Corpuscular Volume 85.4 fl (81.0-99.0); Mean Platelet Volume 7.9 fL (7.4-10.4); Platelet Count 251 thou/uL (130-400); RBC Distribution Width 12.2 % (11.5-14.5); White Blood Cell (WBC) Count 13.3 thou/uL (4.8-10.8)
[2017-11-01 04:59] LABS: Lactic Acid 3.1 mmol/L (0.5-2.2)
[2017-11-01 05:17] LABS: Anion Gap 14 mmol/L (10-20); BUN (Urea Nitrogen) 39 mg/dL (9.8-20.1); Calc. Creatinine Clearance 22 mL/min (70-130); Calcium 7.6 mg/dL (7.8-10.44); Carbon Dioxide 17 mmol/L (22-29); Chloride 112 mmol/L (98-107); Estimated GFR-MDRD 17; Glucose 151 mg/dL (70-105); Magnesium 1.4 mg/dL (1.6-2.6); Phosphorus 3.4 mg/dL (2.3-4.7); Potassium 3.7 mmol/L (3.5-5.1); Sodium 139 mmol/L (136-145)
[2017-11-01] MEDS ORDERED: Temazepam 15 MG CAP PO PRN (07:10)
[2017-11-01] MEDS ORDERED: HYDROcodone/Acetaminophen 5/325 mg Tablet PO PRN (07:10)
[2017-11-01] MEDS ORDERED: Acetaminophen 325 MG TAB PO PRN (07:10)
[2017-11-01] MEDS ORDERED: Chloraseptic Spray 180 ml Bottle PO PRN (07:10)
[2017-11-01] MEDS ORDERED: Mag-Al 1200 mg/1200 mg/30 ML UDCUP PO PRN (07:10)
[2017-11-01] MEDS ORDERED: Milk Of Magnesia 30 ML UDCUP PO PRN (07:10)
[2017-11-01] MEDS ORDERED: Loratadine 10 MG TAB PO PRN (07:10)
[2017-11-01] MEDS ORDERED: Senokot 8.6 MG TAB PO PRN (07:10)
[2017-11-01] MEDS ORDERED: Sodium Chloride 0.65% Nasal 44 ML BOT EA NARE PRN (07:10)
[2017-11-01] MEDS ORDERED: Loperamide HCl 2 MG CAP PO PRN (07:10)
[2017-11-01] MEDS: 1/2 NS w/KCL 20 mEq 1,000 ML IV SCH ×3 (07:42→14:31)
[2017-11-01] MEDS: Sodium Chloride 0.9% 1,000 ML IV SCH (07:53)
[2017-11-01] MEDS ORDERED: Insulin Detemir 100 UNITS/ML 10 UNITS in Pre-Filled Syringe 1 EACH SC SCH (09:00)
[2017-11-01] MEDS ORDERED: Famotidine 20 MG TAB PO SCH (09:00)
--- NOTE | 2017-11-01 09:02 | RAD ---
PORTABLE SUPINE CHEST: Date: 11/01/17 HISTORY: Dyspnea. CCU follow-up. COMPARISON: 10/31/17. FINDINGS: ET tube and NG tube have been removed. Central line remains in place. There is abnormal opacification of the left lung base, which is new from yesterday. Findings indicate left basilar atelectasis and/or infiltrate which has occurred since yesterday's exam. Right lung rem ains clear. IMPRESSION: New left basilar opacification noted today. POS: [facility]
--- NOTE | 2017-11-01 09:11 | PRG ---
DATE OF SERVICE: 11/01/2017 SUBJECTIVE: A 51-year-old female with diabetic ketoacidosis, respiratory failure, encephalopathy, mu ch improved this morning. She was extubated. X-ray unfortunately shows a left-sided infiltrate. Sh diane is clearly asymptomatic, still lethargic. OBJECTIVE: VITAL SIGNS: Blood pressure is 133/69, sats are 95% on 2 liters, temperature is 99, respiration is 1 8. I's and O's are 308 In and 401 Out. CHEST: Chest reveals decreased breath sounds without any wheezing. CARDIAC: Normal S1, S2, no gallops. ABDOMEN: Soft, no masses. LABORATORY DATA: Creatinine is 2.95. BUN is 39. White count is 13,000, H&H are 7 and 22, platelet count is 251. IMPRESSION: 1. Uncontrolled diabetes, poor compliance. 2. Left-sided pneumonia, possibly aspiration. 3. Infected teeth. PLAN: Zosyn and Clindamycin discontinued. Nutrition and PT. Start home dose insulin when she is ab le to eat. If she is stable, she can be transferred later out of the ICU. One-half hour critical care time.
[2017-11-01] MEDS: Saccharomyces boulardii 250 MG CAP PO SCH (09:43)
[2017-11-01] MEDS: Famotidine 20 MG TAB PO SCH (09:43)
[2017-11-01] MEDS: Ondansetron ODT 4 MG TAB PO PRN (09:43)
[2017-11-01] MEDS: Heparin 5,000 UNITS/ML VIAL SC SCH ×3 (09:44→21:28)
[2017-11-01] MEDS: Insulin Detemir 100 UNITS/ML 12 UNITS in Pre-Filled Syringe 1 EACH SC SCH ×2 (09:44→21:50)
--- NOTE | 2017-11-01 10:13 | PDOC.PN ---
- Subjective Encounter Start Date: 11/01/17 Encounter Start Time: 09:30 pt is still confused, but now BP improved, her creatinine is going up, she is making urine output, DKA is resolved, no fever, has cough - Objective Resuscitation Status: Resuscitation Status FULL:Full Resuscitation MAR Reviewed: Yes Vital Signs & Weight: Vital Signs (12 hours) Temp Pulse Resp Pulse Ox 11/01/17 06:36 109 H 16 99 11/01/17 04:00 99.0 F 11/01/17 00:00 99.2 F 10/31/17 23:16 105 H 18 97 Weight Weight 138 lb 14.259 oz Most Recent Monitor Data Heart Rate from ECG 113 NIBP 133/69 NIBP BP-Mean 91 Respiration from ECG 1 SpO2 95 I&O: 10/31/17 11/01/17 11/02/17 06:59 06:59 06:59 Intake Total 3291.6 3081.4 Output Total 1018 409 75 Balance 2273.6 2672.4 -75 Result Diagrams: 11/01/17 04:41 11/01/17 04:41 Additional Labs: Accuchecks 11/01/17 10/31/17 10/31/17 00:37 20:18 17:54 POC Glucose 275 H 195 H 196 H 10/31/17 10/31/17 10/31/17 16:23 15:28 14:24 POC Glucose 179 H 102 94 10/31/17 10/31/17 10/31/17 13:22 12:35 11:49 POC Glucose 114 H 103 95 10/31/17 10:13 POC Glucose 205 H Radiology Reviewed by me: Yes (chest xray) EKG Reviewed by me: Yes (sinus tachycardia) Phys Exam - Physical Examination Constitutional: NAD HEENT: PERRLA, sclera anicteric Neck: no JVD, supple Respiratory: no wheezing, no rhonchi left base rales Cardiovascular: RRR, no significant murmur, no rub tachycardia Gastrointestinal: soft, non-tender, no distention, positive bowel sounds fitch+ Musculoskeletal: no edema, pulses present Neurological: moves all 4 limbs Lymphatic: no nodes Psychiatric: normal affect Skin: no rash, normal turgor Dx/Plan (1) Acute metabolic encephalopathy Code(s): G93.41 - METABOLIC ENCEPHALOPATHY Status: Acute Comment: (2) Acute renal failure (ARF) Status: Acute Comment: (3) Acute respiratory failure with hypoxia Code(s): J96.01 - ACUTE RESPIRATORY FAILURE WITH HYPOXIA Status: Acute (4) DKA, type 2 Code(s): E11.10 - TYPE 2 DIABETES MELLITUS WITH KETOACIDOSIS WITHOUT COMA Status: Acute (5) Demand ischemia Code(s): I24.8 - OTHER FORMS OF ACUTE ISCHEMIC HEART DISEASE Status: Acute (6) Dental infection Code(s): K04.7 - PERIAPICAL ABSCESS WITHOUT SINUS Status: Acute (7) Diabetic ketoacidosis Code(s): E11.10 - TYPE 2 DIABETES MELLITUS WITH KETOACIDOSIS WITHOUT COMA Status: Acute Comment: (8) Hypokalemia Code(s): E87.6 - HYPOKALEMIA Status: Resolved (9) Hyponatremia Code(s): E87.1 - HYPO-OSMOLALITY AND HYPONATREMIA Status: Resolved (10) Lactic acidosis Code(s): E87.2 - ACIDOSIS Status: Resolved (11) Sepsis with acute organ dysfunction Code(s): A41.9 - SEPSIS, UNSPECIFIED ORGANISM; R65.20 - SEVERE SEPSIS WITHOUT SEPTIC SHOCK Status: Acute (12) HTN (hypertension) Code(s): I10 - ESSENTIAL (PRIMARY) HYPERTENSION Status: Chronic (13) Hyperlipidemia Code(s): E78.5 - HYPERLIPIDEMIA, UNSPECIFIED Status: Chronic (14) Noncompliance with diet and medication regimen Code(s): Z91.11 - PATIENT'S NONCOMPLIANCE WITH DIETARY REGIMEN; Z91.14 - PATIENT 'S OTHER NONCOMPLIANCE WITH MEDICATION REGIMEN Status: Chronic (15) Peripheral neuropathy Code(s): G62.9 - POLYNEUROPATHY, UNSPECIFIED Status: Chronic (16) Tobacco abuse Code(s): Z72.0 - TOBACCO USE Status: Chronic (17) Type II diabetes mellitus Status: Chronic (18) Hypomagnesemia Code(s): E83.42 - HYPOMAGNESEMIA Status: Acute (19) Left lower lobe pneumonia Code(s): J18.1 - LOBAR PNEUMONIA, UNSPECIFIED ORGANISM Status: Acute Qualifiers: Pneumonia type: aspiration pneumonia (20) Methamphetamine use Code(s): F15.10 - OTHER STIMULANT ABUSE, UNCOMPLICATED Status: Suspected - Plan cont current plan of care, continue antibiotics * check fobt for drop in Hb * monitor renal function, nephrology following * continue zosyn and clindamycin for dental infection and LLL pneumonia * medication reviewed as below * symptomatic treatment * replace magnesium * tried to call on phone and voice mail left * will transfer to tele today * will monitor labs. Review of Systems - Review of Systems Other: not reliable with pt as pt is not co-operative - Medications/Allergies Allergies/Adverse Reactions: Allergies Allergy/AdvReac Type Severity Reaction Status Date / Time hydralazine Allergy Verified 07/17/17 14:46 naproxen [From Naprosyn] Allergy Verified 07/17/17 14:46 Medications: Current Medications Acetaminophen (Tylenol) 650 mg PO Q4H PRN PRN Reason: Headache/Fever or Mild Pain Hydrocodone Bitart/Acetaminophen ([place] 5/325) 1 tab PO Q4H PRN PRN Reason: Moderate Pain (4-6) Al Hydroxide/Mg Hydroxide (Maalox) 15 ml PO Q4H PRN PRN Reason: Heartburn or Indigestion Albuterol/Ipratropium (Duoneb) 3 ml NEB [id number] PRN PRN Reason: SOB &/or Wheezing Albuterol/Ipratropium (Duoneb) 3 ml NEB [id number] [facility] Last Admin: 11/01/17 06:36 Dose: 3 ml Artificial Tears (Tears Naturale) 0 drop EA EYE PRN PRN PRN Reason: Dry Eyes Bisacodyl (Dulcolax) 10 mg [place] DAILYPRN PRN PRN Reason: Constipation Dextrose/Water (Dextrose 50%) 25 gm IVP PRN PRN PRN Reason: HYPOGLYCEMIA PROTOCOL Famotidine (Pepcid) 20 mg PO DAILY [facility] Last Admin: 11/01/17 09:43 Dose: 20 mg Glucagon (Glucagon) 1 mg IM PRN PRN PRN Reason: HYPOGLYCEMIA PROTOCOL Guaifenesin (Robitussin Sf) 200 mg PO Q4H PRN PRN Reason: Cough Heparin Sodium (Porcine) (Heparin) 5,000 units SC TID [facility] Last Admin: 11/01/17 09:44 Dose: 5,000 units Piperacillin Sod/Tazobactam (Sod 2.25 gm/ Sodium Chloride) 100 mls @ 200 mls/ hr IVPB 0300,0900,1500,2100 [facility] Last Admin: 11/01/17 09:45 Dose: 100 mls Clindamycin Phosphate/Dextrose (300 mg/ Device) 50 mls @ 100 mls/hr IVPB 0400, 1000,1600,2200 [facility] Last Admin: 11/01/17 09:44 Dose: 50 mls Potassium Chloride/Sodium Chloride (1/2 Ns W/Kcl 20 Meq) 1,000 mls @ 100 mls/ hr IV .Q10H [facility] Last Admin: 11/01/17 07:42 Dose: Not Given Dextrose/Water (D5w) 1,000 mls @ 0 mls/hr IV INF PRN; As Directed PRN Reason: HYPOGLYCEMIA PROTOCOL Insulin Detemir 12 units/ (Miscellaneous Medication) 0.12 mls @ 0 mls/hr SC HS [facility] Insulin Detemir 12 units/ (Miscellaneous Medication) 0.12 mls @ 0 mls/hr SC QAM [facility] Last Admin: 11/01/17 09:44 Dose: 0.12 mls Magnesium Sulfate 1 gm/ Sodium (Chloride) 102 mls @ 100 mls/hr IVPB ONE [facility] Insulin Human Lispro (Humalog) 0 units SC .MODERATE SLIDING SC PRN; Protocol PRN Reason: MODERATE SLIDING SCALE Last Admin: 11/01/17 00:37 Dose: 6 unit Loperamide HCl (Imodium) 2 mg PO PRN PRN PRN Reason: Diarrhea/Loose Stools Loratadine (Claritin) 10 mg PO DAILYPRN PRN PRN Reason: Sinus Symptoms Magnesium Hydroxide (Milk Of Magnesium) 30 ml PO DAILYPRN PRN PRN Reason: Constipation Mineral Oil/White Petrolatum (Eucerin Cream) 0 gm TOP BIDPRN PRN PRN Reason: Dry Skin Ondansetron HCl (Zofran) 4 mg IVP Q6H PRN PRN Reason: Nausea/Vomiting Ondansetron HCl (Zofran Odt) 4 mg PO Q6H PRN PRN Reason: Nausea/Vomiting Last Admin: 11/01/17 09:43 Dose: 4 mg Phenol (Chloraseptic [place] 180 Ml Bot) 0 ml PO PRN PRN PRN Reason: Sore Throat Saccharomyces Boulardii (Florastor) 250 mg PO DAILY [facility] Last Admin: 11/01/17 09:43 Dose: 250 mg Senna (Senokot) 2 tab PO HSPRN PRN PRN Reason: Constipation Sodium Chloride ([place] Nasal [place] 0.65%) 0 ml EA NARE QIDPRN PRN PRN Reason: Nasal Congestion Sodium Chloride (Flush - Normal Saline) 10 ml IVF Q12HR [facility] Last Admin: 11/01/17 10:02 Dose: 10 ml Sodium Chloride (Flush - Normal Saline) 10 ml IVF PRN PRN PRN Reason: Saline Flush Temazepam (Restoril) 15 mg PO HSPRN PRN PRN Reason: Insomnia
[2017-11-01] MEDS: SODIUM CHLORIDE 0.45% IV SCH (19:11)
[2017-11-01] MEDS: POTASSIUM CHLORIDE IV SCH (19:11)
[2017-11-01] MEDS: SODIUM BICARBONATE IV SCH (19:11)
--- NOTE | 2017-11-02 00:15 | PRG ---
DATE OF SERVICE: 11/01/2017 SUBJECTIVE: The patient seen and examined, sleepy but arousable noted with the following vital signs . PHYSICAL EXAMINATION: VITAL SIGNS: Afebrile with temperature 99, pulse 105, respiratory rate 18, O2 saturation 97%, and bl ood pressure 133/69. HEENT: Unremarkable with moist oral mucosa. Neck is supple. No conjunctival injection or icterus. CARDIOVASCULAR SYSTEM: First and second heart sounds were heard. RESPIRATORY SYSTEM: Clear to auscultation. DIGESTIVE SYSTEM: Revealed a benign abdomen with positive bowel sounds. EXTREMITIES: No peripheral edema. SKIN: No new gross rash. LYMPHATICS: No peripheral lymphadenopathy. LABORATORY INVESTIGATION: Showed hemoglobin of 7.5 with a white count of 13,300. Chemistry showed a creatinine of 2.95, BUN of 89, bicarbonate of 17. Lactic acid 3.1. IMPRESSION: 1. Acute kidney injury in the context of hemodynamically mediated acute kidney injury due to intrava scular depletion from diabetic ketoacidosis. 2. Metabolic acidosis. 3. Lactic acidemia with hypomagnesemia. PLAN: 1. We will continue renal supportive measures. 2. Avoid potentially nephrotoxic agents. 3. Hopefully renal function will slat pickler. At this point, the patient is making some urine. 4. Further management to be dependent on the clinical course.
[2017-11-02] MEDS: Piperacillin/Tazobactam 2.25 GM in Sodium Chloride 0.9% 100 ML IVPB SCH ×4 (03:30→20:26)
[2017-11-02] MEDS: Clindamycin/D5W 300 MG in Premix Bag 1 BAG IVPB SCH ×2 (04:00→09:36)
[2017-11-02 05:17] LABS: #Monocytes 0.4 thou/uL (0.11-0.59); %Basophils 0.2 % (0.0-1.0); %Eosinophils 0.5 % (0.0-10.0); %Lymphocytes 10.9 % (21.0-51.0); %Monocytes 3.8 % (0.0-10.0); %Neutrophils 84.6 % (42.0-75.0); Hemoglobin 7.8 g/dL (12.0-16.0); Mean Corpuscular HGB CONC 33.3 g/dL (32.0-36.0); Mean Corpuscular Hemoglobin 28.6 pg (27.0-31.0); Mean Corpuscular Volume 86.1 fl (81.0-99.0); Mean Platelet Volume 8.2 fL (7.4-10.4); Platelet Count 228 thou/uL (130-400); RBC Distribution Width 12.2 % (11.5-14.5); Red Blood Cell (RBC) Count 2.71 mill/uL (4.20-5.40); White Blood Cell (WBC) Count 9.4 thou/uL (4.8-10.8)
[2017-11-02] MEDS: POTASSIUM CHLORIDE IV SCH ×2 (05:30→18:16)
[2017-11-02] MEDS: SODIUM BICARBONATE IV SCH ×2 (05:30→18:16)
[2017-11-02] MEDS: SODIUM CHLORIDE 0.45% IV SCH ×2 (05:30→18:16)
[2017-11-02 05:31] LABS: Anion Gap 13 mmol/L (10-20); BUN (Urea Nitrogen) 32 mg/dL (9.8-20.1); Calc. Creatinine Clearance 26 mL/min (70-130); Carbon Dioxide 18 mmol/L (22-29); Chloride 111 mmol/L (98-107); Estimated GFR-MDRD 20; Glucose 228 mg/dL (70-105); Magnesium 1.7 mg/dL (1.6-2.6); Potassium 4.4 mmol/L (3.5-5.1); Sodium 138 mmol/L (136-145)
[2017-11-02] MEDS: Insulin Detemir 100 UNITS/ML 12 UNITS in Pre-Filled Syringe 1 EACH SC SCH ×2 (09:03→22:18)
[2017-11-02] MEDS: Saccharomyces boulardii 250 MG CAP PO SCH (09:04)
[2017-11-02] MEDS: Famotidine 20 MG TAB PO SCH (09:04)
[2017-11-02] MEDS: Heparin 5,000 UNITS/ML VIAL SC SCH ×3 (09:04→20:28)
[2017-11-02] MEDS: cloNIDine 0.1 MG TAB PO PRN ×2 (09:35→21:44)
--- NOTE | 2017-11-02 10:36 | PDOC.PN ---
- Subjective Encounter Start Date: 11/02/17 Encounter Start Time: 08:00 Patient seen and examined for sepsis, PEGGY. c/o dysphagia after solid food. No overnight events - Objective Resuscitation Status: Resuscitation Status FULL:Full Resuscitation MAR Reviewed: Yes Vital Signs & Weight: Vital Signs (12 hours) Temp Pulse Resp BP BP BP Pulse Ox 11/02/17 09:35 184/85 H 11/02/17 09:05 115 H 184/85 H 11/02/17 07:30 108 H 16 97 11/02/17 07:05 98.8 F 108 H 16 192/93 H 100 11/02/17 00:23 105 H 16 95 Weight Weight 155 lb Most Recent Monitor Data Heart Rate from ECG 111 NIBP 156/73 NIBP BP-Mean 94 Respiration from ECG 0 SpO2 100 I&O: 11/01/17 11/02/17 11/03/17 06:59 06:59 06:59 Intake Total 3081.4 2444 Output Total 409 3935 1700 Balance 2672.4 -1491 -1700 Result Diagrams: 11/02/17 04:44 11/02/17 04:44 Additional Labs: Accuchecks 11/02/17 11/02/17 11/01/17 06:08 03:03 21:34 POC Glucose 246 H 196 H 133 H 11/01/17 11/01/17 16:42 11:47 POC Glucose 146 H 177 H EKG Reviewed by me: Yes Phys Exam - Physical Examination Constitutional: NAD HEENT: PERRLA, moist MMs, sclera anicteric Neck: no JVD, supple Respiratory: no wheezing, no rales, no rhonchi Cardiovascular: RRR, no significant murmur, no rub Gastrointestinal: soft, non-tender, no distention, positive bowel sounds Musculoskeletal: no edema, pulses present Neurological: non-focal, normal sensation, moves all 4 limbs Psychiatric: normal affect, A&O x 3 Skin: no rash, normal turgor Dx/Plan (1) Acute metabolic encephalopathy Code(s): G93.41 - METABOLIC ENCEPHALOPATHY Status: Resolved Comment: (2) Acute renal failure (ARF) Status: Acute Comment: (3) Acute respiratory failure with hypoxia Code(s): J96.01 - ACUTE RESPIRATORY FAILURE WITH HYPOXIA Status: Resolved (4) DKA, type 2 Code(s): E11.10 - TYPE 2 DIABETES MELLITUS WITH KETOACIDOSIS WITHOUT COMA Status: Resolved (5) Demand ischemia Code(s): I24.8 - OTHER FORMS OF ACUTE ISCHEMIC HEART DISEASE Status: Acute (6) Dental infection Code(s): K04.7 - PERIAPICAL ABSCESS WITHOUT SINUS Status: Acute (7) Diabetic ketoacidosis Code(s): E11.10 - TYPE 2 DIABETES MELLITUS WITH KETOACIDOSIS WITHOUT COMA Status: Resolved Comment: (8) Hypokalemia Code(s): E87.6 - HYPOKALEMIA Status: Resolved (9) Hyponatremia Code(s): E87.1 - HYPO-OSMOLALITY AND HYPONATREMIA Status: Resolved (10) Lactic acidosis Code(s): E87.2 - ACIDOSIS Status: Resolved (11) Sepsis with acute organ dysfunction Code(s): A41.9 - SEPSIS, UNSPECIFIED ORGANISM; R65.20 - SEVERE SEPSIS WITHOUT SEPTIC SHOCK Status: Acute (12) HTN (hypertension) Code(s): I10 - ESSENTIAL (PRIMARY) HYPERTENSION Status: Chronic (13) Hyperlipidemia Code(s): E78.5 - HYPERLIPIDEMIA, UNSPECIFIED Status: Chronic (14) Noncompliance with diet and medication regimen Code(s): Z91.11 - PATIENT'S NONCOMPLIANCE WITH DIETARY REGIMEN; Z91.14 - PATIENT 'S OTHER NONCOMPLIANCE WITH MEDICATION REGIMEN Status: Chronic (15) Peripheral neuropathy Code(s): G62.9 - POLYNEUROPATHY, UNSPECIFIED Status: Chronic (16) Tobacco abuse Code(s): Z72.0 - TOBACCO USE Status: Chronic (17) Type II diabetes mellitus Status: Chronic (18) Hypomagnesemia Code(s): E83.42 - HYPOMAGNESEMIA Status: Acute (19) Left lower lobe pneumonia Code(s): J18.1 - LOBAR PNEUMONIA, UNSPECIFIED ORGANISM Status: Acute Qualifiers: Pneumonia type: aspiration pneumonia (20) Dysphagia Code(s): R13.10 - DYSPHAGIA, UNSPECIFIED Status: Acute - Plan cont current plan of care, continue antibiotics * continue clindamycin and zosyn * medication reviewed as below * symptomatic treatment * consult GI for dysphagia * sharad fitch * add labetolol and clonidine prn for HTN * pt denies methamphetamine abuse but she was on tessalon lul bu not sure that can cause cross reactivity. Review of Systems - Review of Systems Eyes: negative: Pain, Vision Change, Conjunctivae Inflammation, Eyelid Inflammation, Redness, Other ENT: negative: Ear Pain, Ear Discharge, Nose Pain, Nose Discharge, Nose Congestion, Mouth Pain, Mouth Swelling, Throat Pain, Throat Swelling, Other Respiratory: Cough. negative: Dry, Shortness of Breath, Hemoptysis, SOB with Excertion, Pleuritic Pain, Sputum, Wheezing Cardiovascular: negative: chest pain, palpitations, orthopnea, paroxysmal nocturnal dyspnea, edema, light headedness, other Gastrointestinal: negative: Nausea, Vomiting, Abdominal Pain, Diarrhea, Constipation, Melena, Hematochezia, Other Genitourinary: negative: Dysuria, Frequency, Incontinence, Hematuria, Retention , Other Musculoskeletal: negative: Neck Pain, Shoulder Pain, Arm Pain, Back Pain, Hand Pain, Leg Pain, Foot Pain, Other Skin: negative: Rash, Lesions, Jan, Bruising, Other - Medications/Allergies Allergies/Adverse Reactions: Allergies Allergy/AdvReac Type Severity Reaction Status Date / Time hydralazine Allergy Verified 07/17/17 14:46 naproxen [From Naprosyn] Allergy Verified 07/17/17 14:46 Medications: Current Medications Acetaminophen (Tylenol) 650 mg PO Q4H PRN PRN Reason: Headache/Fever or Mild Pain Hydrocodone Bitart/Acetaminophen ([place] 5/325) 1 tab PO Q4H PRN PRN Reason: Moderate Pain (4-6) Al Hydroxide/Mg Hydroxide (Maalox) 15 ml PO Q4H PRN PRN Reason: Heartburn or Indigestion Albuterol/Ipratropium (Duoneb) 3 ml NEB [id number] PRN PRN Reason: SOB &/or Wheezing Albuterol/Ipratropium (Duoneb) 3 ml NEB [id number] [facility] Last Admin: 11/02/17 07:30 Dose: 3 ml Artificial Tears (Tears Naturale) 0 drop EA EYE PRN PRN PRN Reason: Dry Eyes Bisacodyl (Dulcolax) 10 mg [place] DAILYPRN PRN PRN Reason: Constipation Clonidine (Catapres) 0.1 mg PO Q4H PRN PRN Reason: SBP GREATER THAN 160 Last Admin: 11/02/17 09:35 Dose: 0.1 mg Dextrose/Water (Dextrose 50%) 25 gm IVP PRN PRN PRN Reason: HYPOGLYCEMIA PROTOCOL Famotidine (Pepcid) 20 mg PO DAILY [facility] Last Admin: 11/02/17 09:04 Dose: 20 mg Glucagon (Glucagon) 1 mg IM PRN PRN PRN Reason: HYPOGLYCEMIA PROTOCOL Guaifenesin (Robitussin Sf) 200 mg PO Q4H PRN PRN Reason: Cough Heparin Sodium (Porcine) (Heparin) 5,000 units SC TID [facility] Last Admin: 11/02/17 09:04 Dose: 5,000 units Piperacillin Sod/Tazobactam (Sod 2.25 gm/ Sodium Chloride) 100 mls @ 200 mls/ hr IVPB 0300,0900,1500,2100 [facility] Last Admin: 11/02/17 09:04 Dose: 100 mls Clindamycin Phosphate/Dextrose (300 mg/ Device) 50 mls @ 100 mls/hr IVPB 0400, 1000,1600,2200 [facility] Last Admin: 11/02/17 09:36 Dose: 50 mls Dextrose/Water (D5w) 1,000 mls @ 0 mls/hr IV INF PRN; As Directed PRN Reason: HYPOGLYCEMIA PROTOCOL Insulin Detemir 12 units/ (Miscellaneous Medication) 0.12 mls @ 0 mls/hr SC HS [facility] Last Admin: 11/01/17 21:50 Dose: Not Given Insulin Detemir 12 units/ (Miscellaneous Medication) 0.12 mls @ 0 mls/hr SC QAM [facility] Last Admin: 11/02/17 09:03 Dose: 0.12 mls Potassium Chloride 40 meq/Sodium Bicarbonate 75 meq/Sodium Chloride 1,095 mls @ 100 mls/hr IV .[id number] [facility] Last Admin: 11/02/17 05:30 Dose: 1,095 mls Insulin Human Lispro (Humalog) 0 units SC .MODERATE SLIDING SC PRN; Protocol PRN Reason: MODERATE SLIDING SCALE Last Admin: 11/01/17 11:58 Dose: 2 unit Labetalol HCl (Normodyne) 10 mg SLOW IVP Q4H PRN PRN Reason: SBP GREATER THAN 160 Loperamide HCl (Imodium) 2 mg PO PRN PRN PRN Reason: Diarrhea/Loose Stools Loratadine (Claritin) 10 mg PO DAILYPRN PRN PRN Reason: Sinus Symptoms Magnesium Hydroxide (Milk Of Magnesium) 30 ml PO DAILYPRN PRN PRN Reason: Constipation Mineral Oil/White Petrolatum (Eucerin Cream) 0 gm TOP BIDPRN PRN PRN Reason: Dry Skin Ondansetron HCl (Zofran) 4 mg IVP Q6H PRN PRN Reason: Nausea/Vomiting Ondansetron HCl (Zofran Odt) 4 mg PO Q6H PRN PRN Reason: Nausea/Vomiting Last Admin: 11/01/17 09:43 Dose: 4 mg Phenol (Chloraseptic [place] 180 Ml Bot) 0 ml PO PRN PRN PRN Reason: Sore Throat Saccharomyces Boulardii (Florastor) 250 mg PO DAILY [facility] Last Admin: 11/02/17 09:04 Dose: 250 mg Senna (Senokot) 2 tab PO HSPRN PRN PRN Reason: Constipation Sodium Chloride ([place] Nasal [place] 0.65%) 0 ml EA NARE QIDPRN PRN PRN Reason: Nasal Congestion Sodium Chloride (Flush - Normal Saline) 10 ml IVF Q12HR [facility] Last Admin: 11/02/17 09:04 Dose: 10 ml Sodium Chloride (Flush - Normal Saline) 10 ml IVF PRN PRN PRN Reason: Saline Flush Temazepam (Restoril) 15 mg PO HSPRN PRN PRN Reason: Insomnia
[2017-11-02] MEDS: HumaLOG 300 UNITS/3 ML VIAL SC PRN (12:13)
--- NOTE | 2017-11-02 13:37 | PRG ---
DATE OF SERVICE: 11/02/2017 SUBJECTIVE: She is extubated. No longer in distress. She is complaining of cough, but no shortness of breath. OBJECTIVE: VITAL SIGNS: Blood pressure is 172/86, 100% sats on room air, temperature 97. CHEST: No wheezing, crackles. CARDIAC: Normal S1, S2, no gallops. ABDOMEN: Soft. NEUROLOGIC: She is awake and responsive. LABORATORY DATA: White count 9000, hemoglobin and hematocrit 7.8 and 23.3, creatinine is 2.57. IMPRESSION: 1. Uncontrolled diabetes. 2. Infected tooth. 3. Poor compliance. 4. Renal failure. PLAN: Discontinue antibiotics. Switch over to oral medication. Pulmonary will follow at a distance . Please call as needed.
[2017-11-02] MEDS ORDERED: HumaLOG 300 UNITS/3 ML VIAL SC PRN (18:18)
[2017-11-02] MEDS: Amoxicillin/Potassium Clav 500 MG TAB PO SCH (20:28)
--- NOTE | 2017-11-03 00:19 | PRG ---
DATE OF SERVICE: 11/02/2017 SUBJECTIVE: Patient is seen and examined with no new compliant, able to walk downstairs . PHYSICAL EXAMINATION: VITAL SIGNS: Afebrile. Temperature 98, pulse of 105-115, respiratory rate 16, blood pressure 192/93 , sat 97%. HEENT: Unremarkable with moist oral mucosa. NECK: Supple, no conjunctival injection or icterus. CARDIOVASCULAR: First and second heart sounds were heard. RESPIRATORY: Clear to auscultation. DIGESTIVE: Revealed a benign abdomen with positive bowel sounds. EXTREMITIES: No peripheral edema. SKIN: No new gross rash. IMPRESSION: Acute on chronic kidney disease in the context of . Hypertension, suboptimally con trolled. PLAN: 1. Would resume the patient's metoprolol XL and adjust antihypertensive medications accordingly. 2. Further management to be dependent on the clinical course.
[2017-11-03] MEDS: cloNIDine 0.1 MG TAB PO PRN (00:57)
[2017-11-03] MEDS: Piperacillin/Tazobactam 2.25 GM in Sodium Chloride 0.9% 100 ML IVPB SCH (04:00)
--- NOTE | 2017-11-03 07:50 | CON ---
DATE OF CONSULTATION: 11/02/2017 REFERRING PHYSICIAN: Dr. Harrison Jackson. REASON FOR CONSULTATION: Dysphagia and also painful swallowing. HISTORY OF PRESENT ILLNESS: Ms. Annalisa Kaba is a very pleasant 51-year-old female hospi talized 3 days ago with altered mental status and also acidosis. Since admission, the patient has be en seen by Dr. Quigley for Nephrology evaluation Dr. Villatoro. The patient actually transferred out o f ICU a couple of days ago and she is in the telemetry unit. She is awake, alert, and communicative. The patient really does not remember how she got to the hospital. Apparently, she was found to be unresponsive at home and the brought her to the ER. In the ER, she was intubated and was alcon devon on ventilator. She is in ICU for a couple of days and then she was extubated. The patient was n oted to have acidosis and also diverticulosis. She has been seen by Dr. Quigley because of the ac idosis and also kidney impairment. The patient is awake, alert, and communicative. She knows where she is at. She has been seen Dr. Juli Momin in [place] and subsequently referred to another doctor with positive history of diabetes mellitus, which is uncontrolled. The patient does use drug s off and on. The patient gives history of painful swallowing and also dysphagia. She is not very s ure that she is having painful swallowing because she had an endotracheal tube couple of days ago or she has something is going on. However, the dysphagia has been happening off and on. Dysphagia occu rs mostly with the solid food like meat and bread. Foods tend to hang up in the esophagus and someti mes drinking a water makes it go down. At times, she has cough and gag and brings it out. There is no history of any weight loss. The dysphagia is intermittent that has been going several months. Pa inful swallowing something new, which has been going on for the last 2 or 3 days. She has no abdomin al pain. No history of melena. No rectal bleeding. She has no other relevant symptoms. MEDICAL ILLNESSES: 1. Insulin-dependent diabetes mellitus. 2. Hypertension. 3. Hyperlipidemia. 4. Tobacco abuse. 5. Illicit drug abuse. 6. Peripheral neuropathy. 7. Cholecystectomy. 8. Hysterectomy. MEDICATIONS: List reviewed which include insulin, Humalog sliding scale, atorvastatin, metoprolol, l isinopril, Omnicef for a dental infection. ALLERGIES: HYDRALAZINE, NAPROXEN. SOCIAL HISTORY: The patient is a smoker. She also has history of illicit drug use. Denies any alco hol abuse. REVIEW OF SYSTEMS: Constitutional: No history of fever. No weight loss. Energy level is actually very good. Respiratory system: No history of chronic cough, hemoptysis, or dyspnea. Cardiovascular system: No chest pain, no palpitation, no dyspnea, orthopnea or PND. Gastrointestinal: Dysphagia, painful swallowing. Genitourinary: No dysuria, stress incontinence, or frequency of urination. Mu sculoskeletal: Does have some back pain, arthralgias. Neuroendocrine: Unremarkable. PHYSICAL EXAMINATION: GENERAL: The patient is thin built, appears very comfortable. She is awake, alert, oriented to time and place and person. She does give a good history. VITAL SIGNS: Afebrile. Her pulse is 100, blood pressure is 172/86. HEENT: Conjunctivae clear. NECK: Supple. No adenitis or thyromegaly noted. CARDIOVASCULAR SYSTEM: First and second heart sounds normal. LUNGS: Clear to auscultation. ABDOMEN: Soft to palpate. No organomegaly. No tenderness. No masses. EXTREMITIES: Reveal no edema. LABORATORY DATA: From today, WBC 9400. However, she had leukocytosis 19,800 on admission, hemoglobi n dropping down to 7.8 from 10.1, hematocrit 23.3, MCV 86.1, platelet count 228,000, polymorphs 84, l ymphocytes 10. Serum chemistries: Sodium is 138, potassium 4.4, chloride 111, bicarbonate 18, BUN i s 32, creatinine 2.57, glucose 228, calcium 8, magnesium 1.3. She had a brain CT scan on admission, which was unremarkable. CLINICAL IMPRESSION: A 51-year-old female with altered mental status, hospitalized, was on the ventilator for couple of days. She is out of ICU and she is in the telemetry unit. She is awak e, alert, and sitting comfortably. 1. Dysphagia. The dysphagia has been going on for a while, but she has a painful swallowing and dys phagia because of the ET-tube. 2. Acidosis, diabetic ketoacidosis.[id number] 3. Chronic kidney disease. 4. Diabetes mellitus. 5. Hypertension. 6. Peripheral neuropathy. I did talk to Ms. Kaba and I have explained to her that she needs an EGD because of dysphagia. She agrees. I will plan for EGD tomorrow and make further recommendations. Also her blood count needs to be watched as her blood count has been dropping down, would certainly _ ____ her bleeding. I will make further recommendations after EGD.
[2017-11-03 08:41] LABS: #Eosinphils 0.1 thou/uL (0.0-0.7); #Lymphocytes 0.6 thou/uL (1.20-3.40); #Monocytes 0.2 thou/uL (0.11-0.59); #Neutrophils 6.7 thou/uL (1.40-6.50); %Basophils 0.2 % (0.0-1.0); %Eosinophils 0.7 % (0.0-10.0); %Lymphocytes 7.8 % (21.0-51.0); %Monocytes 2.8 % (0.0-10.0); %Neutrophils 88.5 % (42.0-75.0); Hemoglobin 8.5 g/dL (12.0-16.0); Mean Corpuscular Hemoglobin 28.8 pg (27.0-31.0); Mean Corpuscular Volume 87.4 fl (81.0-99.0); Mean Platelet Volume 7.8 fL (7.4-10.4); Platelet Count 222 thou/uL (130-400); RBC Distribution Width 12.3 % (11.5-14.5); Red Blood Cell (RBC) Count 2.96 mill/uL (4.20-5.40); White Blood Cell (WBC) Count 7.6 thou/uL (4.8-10.8)
[2017-11-03 08:55] LABS: Anion Gap 21 mmol/L (10-20); BUN (Urea Nitrogen) 29 mg/dL (9.8-20.1); Calc. Creatinine Clearance 29 mL/min (70-130); Calcium 8.1 mg/dL (7.8-10.44); Carbon Dioxide 16 mmol/L (22-29); Chloride 99 mmol/L (98-107); Estimated GFR-MDRD 20; Glucose 546 mg/dL (70-105); Potassium 4.3 mmol/L (3.5-5.1); Sodium 132 mmol/L (136-145)
[2017-11-03] MEDS: Amoxicillin/Potassium Clav 500 MG TAB PO SCH ×2 (09:00→21:22)
[2017-11-03] MEDS: Atorvastatin Calcium 40 MG TAB PO SCH (09:00)
[2017-11-03] MEDS: Labetalol HCl 100 MG/20 ML VIAL SLOW IVP PRN ×3 (09:17→21:23)
[2017-11-03] MEDS: Ondansetron ODT 4 MG TAB PO PRN (09:19)
[2017-11-03] MEDS: Heparin 5,000 UNITS/ML VIAL SC SCH ×2 (09:20→21:25)
[2017-11-03] MEDS: Famotidine 20 MG TAB PO SCH (09:22)
[2017-11-03] MEDS: Insulin Detemir 100 UNITS/ML 12 UNITS in Pre-Filled Syringe 1 EACH SC SCH ×2 (09:25→21:23)
--- NOTE | 2017-11-03 10:03 | PRG ---
DATE OF SERVICE: 11/03/2017 SUBJECTIVE: This morning, awake, alert and responsive. She is scheduled for an EGD. OBJECTIVE: VITAL SIGNS: Sats are 98% room air, temperature 98, blood pressure is elevated at 203/103. She is n ot given her morning medication. CHEST: Chest reveals decreased breath sounds without any wheezing. CARDIAC: Normal S1, S2, no gallops. ABDOMEN: Soft, no masses. LABORATORY DATA: Creatinine 2.52. White count 7.6, H&H is 8 and 25. Uncontrolled diabetes, poor compliance. Blood sugar is 546 this morning. She probably needs to get her insulin dose. X-RAY FINDINGS: Chest x-ray shows left pleural effusion and a CAT scan showed evidence of some kind of infection, swelling in the left perimandibular area. IMPRESSION: 1. Uncontrolled diabetes, poor compliance. 2. Left-sided effusion. PLAN: Continue home insulin dose. PT and supportive care. Antibiotics. Repeat chest x-ray.
--- NOTE | 2017-11-03 10:37 | PDOC.PN ---
- Subjective Encounter Start Date: 11/03/17 Encounter Start Time: 07:00 Patient seen and examined for sepsis, dka. No overnight events this morning she wanted to go out for smoking and i provided smoking cessation counselling but she does not want to quit and wanted to go for smoking otherwise she wanted to leave AMA her bp and blood sugar are not controlled - Objective Resuscitation Status: Resuscitation Status FULL:Full Resuscitation MAR Reviewed: Yes Vital Signs & Weight: Vital Signs (12 hours) Temp Pulse Resp BP BP Pulse Ox 11/03/17 09:17 107 H 11/03/17 08:32 107 H 16 11/03/17 08:00 98.3 F 107 H 16 203/103 H 98 11/03/17 04:00 98.9 F 98 18 182/81 H 98 11/03/17 00:57 188/90 H 11/03/17 00:41 95 16 99 11/03/17 00:00 98.1 F 97 17 185/88 H 97 Weight Weight 151 lb Most Recent Monitor Data Heart Rate from ECG 111 NIBP 156/73 NIBP BP-Mean 94 Respiration from ECG 0 SpO2 100 I&O: 11/02/17 11/03/17 11/04/17 06:59 06:59 06:59 Intake Total 2444 Output Total 3935 5175 Balance -1491 -5174 Result Diagrams: 11/03/17 08:25 11/03/17 08:25 Additional Labs: Accuchecks 11/03/17 11/03/17 11/02/17 05:48 00:40 21:08 POC Glucose 422 H 213 H 67 L 11/02/17 11/02/17 11/02/17 17:07 10:51 08:43 POC Glucose 93 375 H 379 H EKG Reviewed by me: Yes Phys Exam - Physical Examination Constitutional: NAD HEENT: PERRLA, moist MMs, sclera anicteric poor dentition Neck: no nodes, no JVD, supple Respiratory: no wheezing, no rales, no rhonchi Cardiovascular: RRR, no significant murmur, no rub Gastrointestinal: soft, non-tender, no distention, positive bowel sounds Musculoskeletal: no edema, pulses present Neurological: non-focal, normal sensation Lymphatic: no nodes Psychiatric: normal affect, A&O x 3 Skin: no rash, normal turgor Dx/Plan (1) Acute metabolic encephalopathy Code(s): G93.41 - METABOLIC ENCEPHALOPATHY Status: Resolved Comment: (2) Acute renal failure (ARF) Status: Acute Comment: improving (3) Acute respiratory failure with hypoxia Code(s): J96.01 - ACUTE RESPIRATORY FAILURE WITH HYPOXIA Status: Resolved (4) DKA, type 2 Code(s): E11.10 - TYPE 2 DIABETES MELLITUS WITH KETOACIDOSIS WITHOUT COMA Status: Resolved (5) Demand ischemia Code(s): I24.8 - OTHER FORMS OF ACUTE ISCHEMIC HEART DISEASE Status: Acute (6) Dental infection Code(s): K04.7 - PERIAPICAL ABSCESS WITHOUT SINUS Status: Acute (7) Diabetic ketoacidosis Code(s): E11.10 - TYPE 2 DIABETES MELLITUS WITH KETOACIDOSIS WITHOUT COMA Status: Resolved Comment: (8) Hypokalemia Code(s): E87.6 - HYPOKALEMIA Status: Resolved (9) Hyponatremia Code(s): E87.1 - HYPO-OSMOLALITY AND HYPONATREMIA Status: Resolved (10) Lactic acidosis Code(s): E87.2 - ACIDOSIS Status: Resolved (11) Sepsis with acute organ dysfunction Code(s): A41.9 - SEPSIS, UNSPECIFIED ORGANISM; R65.20 - SEVERE SEPSIS WITHOUT SEPTIC SHOCK Status: Acute (12) HTN (hypertension) Code(s): I10 - ESSENTIAL (PRIMARY) HYPERTENSION Status: Chronic (13) Hyperlipidemia Code(s): E78.5 - HYPERLIPIDEMIA, UNSPECIFIED Status: Chronic (14) Noncompliance with diet and medication regimen Code(s): Z91.11 - PATIENT'S NONCOMPLIANCE WITH DIETARY REGIMEN; Z91.14 - PATIENT 'S OTHER NONCOMPLIANCE WITH MEDICATION REGIMEN Status: Chronic (15) Peripheral neuropathy Code(s): G62.9 - POLYNEUROPATHY, UNSPECIFIED Status: Chronic (16) Tobacco abuse Code(s): Z72.0 - TOBACCO USE Status: Chronic (17) Type II diabetes mellitus Status: Chronic (18) Hypomagnesemia Code(s): E83.42 - HYPOMAGNESEMIA Status: Acute (19) Left lower lobe pneumonia Code(s): J18.1 - LOBAR PNEUMONIA, UNSPECIFIED ORGANISM Status: Acute Qualifiers: Pneumonia type: aspiration pneumonia (20) Dysphagia Code(s): R13.10 - DYSPHAGIA, UNSPECIFIED Status: Acute - Plan cont current plan of care, continue antibiotics * DC IVF * continue insulin as ordered, she did not get her morning dose so level is high * counselled to avoid smoking * today EGD * medication reviewed as below * symptomatic treatment * continue augmentin. * add procardia xl 30 mg po daily * add toprol xl 50 mg po daily * chest xray tomorrow * pt will need outpt dental follow up Review of Systems - Review of Systems Eyes: negative: Pain, Vision Change, Conjunctivae Inflammation, Eyelid Inflammation, Redness, Other ENT: negative: Ear Pain, Ear Discharge, Nose Pain, Nose Discharge, Nose Congestion, Mouth Pain, Mouth Swelling, Throat Pain, Throat Swelling, Other Respiratory: negative: Cough, Dry, Shortness of Breath, Hemoptysis, SOB with Excertion, Pleuritic Pain, Sputum, Wheezing Cardiovascular: negative: chest pain, palpitations, orthopnea, paroxysmal nocturnal dyspnea, edema, light headedness, other Gastrointestinal: negative: Nausea, Vomiting, Abdominal Pain, Diarrhea, Constipation, Melena, Hematochezia, Other Genitourinary: negative: Dysuria, Frequency, Incontinence, Hematuria, Retention , Other Musculoskeletal: negative: Neck Pain, Shoulder Pain, Arm Pain, Back Pain, Hand Pain, Leg Pain, Foot Pain, Other Skin: negative: Rash, Lesions, Jan, Bruising, Other - Medications/Allergies Allergies/Adverse Reactions: Allergies Allergy/AdvReac Type Severity Reaction Status Date / Time hydralazine Allergy Verified 07/17/17 14:46 naproxen [From Naprosyn] Allergy Verified 07/17/17 14:46 Medications: Current Medications Acetaminophen (Tylenol) 650 mg PO Q4H PRN PRN Reason: Headache/Fever or Mild Pain Hydrocodone Bitart/Acetaminophen ([place] 5/325) 1 tab PO Q4H PRN PRN Reason: Moderate Pain (4-6) Al Hydroxide/Mg Hydroxide (Maalox) 15 ml PO Q4H PRN PRN Reason: Heartburn or Indigestion Albuterol/Ipratropium (Duoneb) 3 ml NEB [id number] PRN PRN Reason: SOB &/or Wheezing Albuterol/Ipratropium (Duoneb) 3 ml NEB [id number] SANDI Last Admin: 11/03/17 08:32 Dose: 3 ml Amoxicillin/Clavulanate Potassium (Augmentin) 500 mg PO Q12HR [facility] Last Admin: 11/02/17 20:28 Dose: 500 mg Artificial Tears (Tears Naturale) 0 drop EA EYE PRN PRN PRN Reason: Dry Eyes Atorvastatin Calcium (Lipitor) 40 mg PO DAILY [facility] Bisacodyl (Dulcolax) 10 mg [place] DAILYPRN PRN PRN Reason: Constipation Clonidine (Catapres) 0.1 mg PO Q4H PRN PRN Reason: SBP GREATER THAN 160 Last Admin: 11/03/17 00:57 Dose: 0.1 mg Dextrose/Water (Dextrose 50%) 25 gm IVP PRN PRN PRN Reason: HYPOGLYCEMIA PROTOCOL Last Admin: 11/02/17 16:30 Dose: 25 gm Famotidine (Pepcid) 20 mg PO DAILY [facility] Last Admin: 11/03/17 09:22 Dose: 20 mg Glucagon (Glucagon) 1 mg IM PRN PRN PRN Reason: HYPOGLYCEMIA PROTOCOL Guaifenesin (Robitussin Sf) 200 mg PO Q4H PRN PRN Reason: Cough Heparin Sodium (Porcine) (Heparin) 5,000 units SC BID [facility] Last Admin: 11/03/17 09:20 Dose: 5,000 units Dextrose/Water (D5w) 1,000 mls @ 0 mls/hr IV INF PRN; As Directed PRN Reason: HYPOGLYCEMIA PROTOCOL Insulin Detemir 12 units/ (Miscellaneous Medication) 0.12 mls @ 0 mls/hr SC [facility] Last Admin: 11/02/17 22:18 Dose: Not Given Insulin Detemir 12 units/ (Miscellaneous Medication) 0.12 mls @ 0 mls/hr SC QAM [facility] Last Admin: 11/03/17 09:25 Dose: 0.12 mls Insulin Human Lispro (Humalog) 0 units [place] .MILD SLIDING SCALE PRN; Protocol PRN Reason: MILD SLIDING SCALE Labetalol HCl (Normodyne) 10 mg SLOW IVP Q4H PRN PRN Reason: SBP GREATER THAN 160 Last Admin: 11/03/17 09:17 Dose: 2 ml Loperamide HCl (Imodium) 2 mg PO PRN PRN PRN Reason: Diarrhea/Loose Stools Loratadine (Claritin) 10 mg PO DAILYPRN PRN PRN Reason: Sinus Symptoms Magnesium Hydroxide (Milk Of Magnesium) 30 ml PO DAILYPRN PRN PRN Reason: Constipation Metoprolol Succinate (Toprol Xl) 25 mg PO DAILY [facility] Mineral Oil/White Petrolatum (Eucerin Cream) 0 gm TOP BIDPRN PRN PRN Reason: Dry Skin Ondansetron HCl (Zofran) 4 mg IVP Q6H PRN PRN Reason: Nausea/Vomiting Ondansetron HCl (Zofran Odt) 4 mg PO Q6H PRN PRN Reason: Nausea/Vomiting Last Admin: 11/03/17 09:19 Dose: 4 mg Phenol (Chloraseptic [place] 180 Ml Bot) 0 ml PO PRN PRN PRN Reason: Sore Throat Saccharomyces Boulardii (Florastor) 250 mg PO DAILY [facility] Last Admin: 11/02/17 09:04 Dose: 250 mg Senna (Senokot) 2 tab PO HSPRN PRN PRN Reason: Constipation Sodium Chloride ([place] Nasal [place] 0.65%) 0 ml EA NARE QIDPRN PRN PRN Reason: Nasal Congestion Sodium Chloride (Flush - Normal Saline) 10 ml IVF Q12HR [facility] Last Admin: 11/03/17 09:23 Dose: 10 ml Sodium Chloride (Flush - Normal Saline) 10 ml IVF PRN PRN PRN Reason: Saline Flush Temazepam (Restoril) 15 mg PO HSPRN PRN PRN Reason: Insomnia
[2017-11-03] MEDS ORDERED: NIFEdipine XL 30 MG TAB PO SCH (10:45)
[2017-11-03] MEDS ORDERED: PROPOFOL 200 MG/20 ML VIAL ONE (12:03)
[2017-11-03] MEDS: Saccharomyces boulardii 250 MG CAP PO SCH (12:04)
[2017-11-03] MEDS ORDERED: Dextrose 5% in Water 1,000 ML IV PRN (12:06)
[2017-11-03] MEDS ORDERED: HumaLOG 300 UNITS/3 ML VIAL SC PRN (12:06)
[2017-11-03] MEDS: HumaLOG 300 UNITS/3 ML VIAL SC PRN (12:51)
--- NOTE | 2017-11-04 00:18 | PRG ---
DATE OF SERVICE: 11/04/2017 SUBJECTIVE: Patient seen and examined with no new complaint noted with the following vital signs. OBJECTIVE: VITAL SIGNS: Afebrile, temperature 97.7, pulse 97, respiratory rate of 16, O2 sat on 98%, blood pres sure 172/80 to 199/96. HEENT: Unremarkable with moist oral mucosa. NECK: Supple, no conjunctival injection or icterus. CARDIOVASCULAR SYSTEM: First and second heart sounds were heard. RESPIRATORY SYSTEM: Clear to auscultation. DIGESTIVE SYSTEM: Revealed a benign abdomen. EXTREMITIES: No peripheral edema. SKIN: No new gross rash. LYMPHATICS: No peripheral lymphadenopathy. LABORATORY INVESTIGATION: Showed hemoglobin of 8.5. Chemistry showed a creatinine 2.52 with BUN of 29, blood sugar of 546. Sodium 132. IMPRESSION: 1. Hyponatremia, this is likely pseudohyponatremia in the context of severe hyperglycemia. 2. Acute on chronic kidney disease. 3. Metabolic acidosis. PLAN: 1. Patient has been counseled on the need to stay very compliant with diabetes treatment. If patien t diabetes continues to be out of control, this patient likely is going to become dependent on dialys is. 2. Further management will be dependent on the clinical course.
[2017-11-04 05:07] LABS: #Eosinphils 0.1 thou/uL (0.0-0.7); #Lymphocytes 1.5 thou/uL (1.20-3.40); #Monocytes 0.3 thou/uL (0.11-0.59); #Neutrophils 4.6 thou/uL (1.40-6.50); %Basophils 0.5 % (0.0-1.0); %Eosinophils 2.2 % (0.0-10.0); %Monocytes 4.2 % (0.0-10.0); %Neutrophils 70.2 % (42.0-75.0); Hemoglobin 8.2 g/dL (12.0-16.0); Mean Corpuscular HGB CONC 33.7 g/dL (32.0-36.0); Mean Corpuscular Hemoglobin 28.8 pg (27.0-31.0); Mean Corpuscular Volume 85.4 fl (81.0-99.0); Mean Platelet Volume 7.8 fL (7.4-10.4); Platelet Count 253 thou/uL (130-400); Red Blood Cell (RBC) Count 2.84 mill/uL (4.20-5.40); White Blood Cell (WBC) Count 6.5 thou/uL (4.8-10.8)
[2017-11-04 05:19] LABS: Anion Gap 13 mmol/L (10-20); BUN (Urea Nitrogen) 25 mg/dL (9.8-20.1); Calc. Creatinine Clearance 33 mL/min (70-130); Calcium 8.1 mg/dL (7.8-10.44); Carbon Dioxide 28 mmol/L (22-29); Chloride 99 mmol/L (98-107); Estimated GFR-MDRD 24; Glucose 196 mg/dL (70-105); Potassium 3.6 mmol/L (3.5-5.1); Sodium 136 mmol/L (136-145)
--- NOTE | 2017-11-04 07:39 | RAD ---
SINGLE VIEW OF THE CHEST: COMPARISON: 11/01/17. HISTORY: Pleural effusion. FINDINGS: A single view of the chest shows a normal-size cardiomediastinal silhouette. The central venous cath eter is unchanged in position. There is slight blunting of the left costophrenic angle which may rep resent a small pleural effusion and/or atelectasis. A calcified granuloma projects over the right th orax. IMPRESSION: Stable exam. POS: SIMA
--- NOTE | 2017-11-04 07:52 | OP ---
DATE OF SURGERY: 11/03/2017 OPERATIVE PROCEDURE: Esophagogastroduodenoscopy with biopsy. PREOPERATIVE DIAGNOSES: Dysphagia, odynophagia. POSTOPERATIVE DIAGNOSES: 1. Esophagitis . 2. Normal vocal cords and no abnormal findings seen in the pharynx or the vocal cord. 3. No esophageal narrowing seen. 4. Retained food material in the gastric lumen and the scope could not be advanced into the duodenum . The procedure terminated because of above reason. PROCEDURE IN DETAIL: The patient was placed on her left lateral position and was given sedation by A nesthesia Department. A [employer]ax video gastroscope under direct vision was passed down the oropharynx, past the GE junction, into the stomach. The vocal cords appeared healthy. There was esophageal catalina rowing seen. The upper 2/3 of the esophageal mucosa appeared normal. Over the distal esophagus, the patient was found to have esophagitis with mucosal edema, erythema and some small ulceration. Biops y was obtained from the area. The scope advanced into the stomach. In the fundus and cardia, no pat hology seen. Over the gastric body and gastric antrum, the patient was found to have a large amount of solid food. Because of aspiration, the stomach was decompressed and the scope removed. RECOMMENDATIONS: 1. Discontinue n.p.o. 2. An 1800 ADA diet. 3. Esophageal biopsy. 4. Protonix 40 once a day.
[2017-11-04] MEDS ORDERED: NIFEdipine XL 30 MG TAB PO SCH (09:00)
[2017-11-04] MEDS ORDERED: NIFEdipine XL 60 MG TAB PO SCH (09:00)
[2017-11-04] MEDS: Saccharomyces boulardii 250 MG CAP PO SCH (09:20)
[2017-11-04] MEDS: Heparin 5,000 UNITS/ML VIAL SC SCH ×2 (09:21→21:22)
[2017-11-04] MEDS: Famotidine 20 MG TAB PO SCH (09:21)
[2017-11-04] MEDS: Amoxicillin/Potassium Clav 500 MG TAB PO SCH ×2 (09:21→21:22)
[2017-11-04] MEDS: Atorvastatin Calcium 40 MG TAB PO SCH (09:21)
[2017-11-04] MEDS: NIFEdipine XL 30 MG TAB PO SCH ×2 (09:24→21:22)
[2017-11-04] MEDS: Metoprolol Tartrate 50 MG TAB PO SCH ×2 (09:25→21:22)
[2017-11-04] MEDS: Insulin Detemir 100 UNITS/ML 12 UNITS in Pre-Filled Syringe 1 EACH SC SCH (09:28)
--- NOTE | 2017-11-04 09:59 | PDOC.PN ---
- Subjective Encounter Start Date: 11/04/17 Encounter Start Time: 09:55 Patient seen and examined for dka, earl. No new complaints. No overnight events - Objective Resuscitation Status: Resuscitation Status FULL:Full Resuscitation MAR Reviewed: Yes Vital Signs & Weight: Vital Signs (12 hours) Temp Pulse Pulse Pulse Resp BP BP 11/04/17 09:24 105 H 145/83 H 11/04/17 08:28 105 H 110 H 136/77 11/04/17 08:00 97.0 F L 105 H 18 11/04/17 07:08 110 H 12 11/04/17 04:00 98.3 F 97 18 11/04/17 00:28 94 14 11/04/17 00:00 BP BP BP Pulse Ox Pulse Ox Pulse Ox 11/04/17 09:24 11/04/17 08:28 121/70 98 97 11/04/17 08:00 145/83 H 97 11/04/17 07:08 11/04/17 04:00 160/73 H 94 L 11/04/17 00:28 98 11/04/17 00:00 138/70 Weight Weight 151 lb Most Recent Monitor Data Heart Rate from ECG 111 NIBP 156/73 NIBP BP-Mean 94 Respiration from ECG 0 SpO2 100 I&O: 11/03/17 11/04/17 11/05/17 06:59 06:59 06:59 Output Total 5175 Balance -5175 Result Diagrams: 11/04/17 04:26 11/04/17 04:27 Additional Labs: Accuchecks 11/04/17 11/04/17 11/03/17 04:34 00:22 20:36 POC Glucose 220 H 238 H 115 H 11/03/17 11/03/17 12:52 11:22 POC Glucose 455 H 508 H EKG Reviewed by me: Yes (tachycardia) Phys Exam - Physical Examination Constitutional: NAD HEENT: PERRLA, moist MMs, sclera anicteric Neck: no JVD, supple Respiratory: no wheezing, no rales, no rhonchi Cardiovascular: RRR, no significant murmur, no rub Gastrointestinal: soft, non-tender, no distention, positive bowel sounds Musculoskeletal: no edema, pulses present Neurological: non-focal, normal sensation, moves all 4 limbs Lymphatic: no nodes Psychiatric: normal affect, A&O x 3 Skin: no rash, normal turgor Dx/Plan (1) Acute metabolic encephalopathy Code(s): G93.41 - METABOLIC ENCEPHALOPATHY Status: Resolved Comment: (2) Acute renal failure (ARF) Status: Acute Comment: improving (3) Acute respiratory failure with hypoxia Code(s): J96.01 - ACUTE RESPIRATORY FAILURE WITH HYPOXIA Status: Resolved (4) DKA, type 2 Code(s): E11.10 - TYPE 2 DIABETES MELLITUS WITH KETOACIDOSIS WITHOUT COMA Status: Resolved (5) Demand ischemia Code(s): I24.8 - OTHER FORMS OF ACUTE ISCHEMIC HEART DISEASE Status: Acute (6) Dental infection Code(s): K04.7 - PERIAPICAL ABSCESS WITHOUT SINUS Status: Acute (7) Diabetic ketoacidosis Code(s): E11.10 - TYPE 2 DIABETES MELLITUS WITH KETOACIDOSIS WITHOUT COMA Status: Resolved Comment: (8) Hypokalemia Code(s): E87.6 - HYPOKALEMIA Status: Resolved (9) Hyponatremia Code(s): E87.1 - HYPO-OSMOLALITY AND HYPONATREMIA Status: Resolved (10) Lactic acidosis Code(s): E87.2 - ACIDOSIS Status: Resolved (11) Sepsis with acute organ dysfunction Code(s): A41.9 - SEPSIS, UNSPECIFIED ORGANISM; R65.20 - SEVERE SEPSIS WITHOUT SEPTIC SHOCK Status: Acute (12) HTN (hypertension) Code(s): I10 - ESSENTIAL (PRIMARY) HYPERTENSION Status: Chronic (13) Hyperlipidemia Code(s): E78.5 - HYPERLIPIDEMIA, UNSPECIFIED Status: Chronic (14) Noncompliance with diet and medication regimen Code(s): Z91.11 - PATIENT'S NONCOMPLIANCE WITH DIETARY REGIMEN; Z91.14 - PATIENT 'S OTHER NONCOMPLIANCE WITH MEDICATION REGIMEN Status: Chronic (15) Peripheral neuropathy Code(s): G62.9 - POLYNEUROPATHY, UNSPECIFIED Status: Chronic (16) Tobacco abuse Code(s): Z72.0 - TOBACCO USE Status: Chronic (17) Type II diabetes mellitus Status: Chronic (18) Hypomagnesemia Code(s): E83.42 - HYPOMAGNESEMIA Status: Acute (19) Left lower lobe pneumonia Code(s): J18.1 - LOBAR PNEUMONIA, UNSPECIFIED ORGANISM Status: Acute Qualifiers: Pneumonia type: aspiration pneumonia (20) Dysphagia Code(s): R13.10 - DYSPHAGIA, UNSPECIFIED Status: Acute - Plan cont current plan of care, continue antibiotics * change toprol xl to metoprolol tartrate 50 mg po bid * change procardia xl 30 mg po bid * medication reviewed as below * symptomatic treatment. * Dc tele * today will control her blood sugar and blood pressure * repeat bmp tomorrow * expecting discharge tomorrow Review of Systems - Review of Systems Eyes: negative: Pain, Vision Change, Conjunctivae Inflammation, Eyelid Inflammation, Redness, Other ENT: negative: Ear Pain, Ear Discharge, Nose Pain, Nose Discharge, Nose Congestion, Mouth Pain, Mouth Swelling, Throat Pain, Throat Swelling, Other Respiratory: negative: Cough, Dry, Shortness of Breath, Hemoptysis, SOB with Excertion, Pleuritic Pain, Sputum, Wheezing Cardiovascular: negative: chest pain, palpitations, orthopnea, paroxysmal nocturnal dyspnea, edema, light headedness, other Gastrointestinal: negative: Nausea, Vomiting, Abdominal Pain, Diarrhea, Constipation, Melena, Hematochezia, Other Genitourinary: negative: Dysuria, Frequency, Incontinence, Hematuria, Retention , Other Musculoskeletal: negative: Neck Pain, Shoulder Pain, Arm Pain, Back Pain, Hand Pain, Leg Pain, Foot Pain, Other Skin: negative: Rash, Lesions, Jan, Bruising, Other - Medications/Allergies Allergies/Adverse Reactions: Allergies Allergy/AdvReac Type Severity Reaction Status Date / Time hydralazine Allergy Verified 07/17/17 14:46 naproxen [From Naprosyn] Allergy Verified 07/17/17 14:46 Medications: Current Medications Acetaminophen (Tylenol) 650 mg PO Q4H PRN PRN Reason: Headache/Fever or Mild Pain Hydrocodone Bitart/Acetaminophen ([place] 5/325) 1 tab PO Q4H PRN PRN Reason: Moderate Pain (4-6) Al Hydroxide/Mg Hydroxide (Maalox) 15 ml PO Q4H PRN PRN Reason: Heartburn or Indigestion Albuterol/Ipratropium (Duoneb) 3 ml NEB [id number] PRN PRN Reason: SOB &/or Wheezing Albuterol/Ipratropium (Duoneb) 3 ml NEB [id number] SANDI Last Admin: 11/04/17 07:08 Dose: 3 ml Amoxicillin/Clavulanate Potassium (Augmentin) 500 mg PO Q12HR [facility] Last Admin: 11/04/17 09:21 Dose: 500 mg Artificial Tears (Tears Naturale) 0 drop EA EYE PRN PRN PRN Reason: Dry Eyes Atorvastatin Calcium (Lipitor) 40 mg PO DAILY [facility] Last Admin: 11/04/17 09:21 Dose: 40 mg Bisacodyl (Dulcolax) 10 mg [place] DAILYPRN PRN PRN Reason: Constipation Clonidine (Catapres) 0.1 mg PO Q4H PRN PRN Reason: SBP GREATER THAN 160 Last Admin: 11/03/17 00:57 Dose: 0.1 mg Dextrose/Water (Dextrose 50%) 25 gm IVP PRN PRN PRN Reason: HYPOGLYCEMIA PROTOCOL Last Admin: 11/02/17 16:30 Dose: 25 gm Famotidine (Pepcid) 20 mg PO DAILY [facility] Last Admin: 11/04/17 09:21 Dose: 20 mg Glucagon (Glucagon) 1 mg IM PRN PRN PRN Reason: HYPOGLYCEMIA PROTOCOL Guaifenesin (Robitussin Sf) 200 mg PO Q4H PRN PRN Reason: Cough Heparin Sodium (Porcine) (Heparin) 5,000 units SC BID [facility] Last Admin: 11/04/17 09:21 Dose: 5,000 units Dextrose/Water (D5w) 1,000 mls @ 0 mls/hr IV INF PRN; As Directed PRN Reason: HYPOGLYCEMIA PROTOCOL Insulin Detemir 12 units/ (Miscellaneous Medication) 0.12 mls @ 0 mls/hr SC HS [facility] Last Admin: 11/03/17 21:23 Dose: 0.12 mls Insulin Detemir 12 units/ (Miscellaneous Medication) 0.12 mls @ 0 mls/hr SC QAM [facility] Last Admin: 11/04/17 09:28 Dose: 0.12 mls Insulin Human Lispro (Humalog) 0 units SC .AGGRESSIVE SLIDING PRN PRN Reason: Aggressive Correctional Scale Last Admin: 11/03/17 12:51 Dose: 13 unit Insulin Human Lispro (Humalog) 0 units SC .BEDTIME SLIDING SC PRN PRN Reason: Bedtime Correctional Scale Labetalol HCl (Normodyne) 10 mg SLOW IVP Q4H PRN PRN Reason: SBP GREATER THAN 160 Last Admin: 11/03/17 21:23 Dose: 2 ml Loperamide HCl (Imodium) 2 mg PO PRN PRN PRN Reason: Diarrhea/Loose Stools Loratadine (Claritin) 10 mg PO DAILYPRN PRN PRN Reason: Sinus Symptoms Magnesium Hydroxide (Milk Of Magnesium) 30 ml PO DAILYPRN PRN PRN Reason: Constipation Metoprolol Tartrate (Lopressor) 50 mg PO BID [facility] Last Admin: 11/04/17 09:25 Dose: 50 mg Mineral Oil/White Petrolatum (Eucerin Cream) 0 gm TOP BIDPRN PRN PRN Reason: Dry Skin Nifedipine (Procardia Xl) 30 mg PO BID [facility] Last Admin: 11/04/17 09:24 Dose: 30 mg Ondansetron HCl (Zofran) 4 mg IVP Q6H PRN PRN Reason: Nausea/Vomiting Ondansetron HCl (Zofran Odt) 4 mg PO Q6H PRN PRN Reason: Nausea/Vomiting Last Admin: 11/03/17 09:19 Dose: 4 mg Pantoprazole Sodium (Protonix) 40 mg PO 2100 [facility] Last Admin: 11/03/17 21:23 Dose: 40 mg Phenol (Chloraseptic [place] 180 Ml Bot) 0 ml PO PRN PRN PRN Reason: Sore Throat Saccharomyces Boulardii (Florastor) 250 mg PO DAILY [facility] Last Admin: 11/04/17 09:20 Dose: 250 mg Senna (Senokot) 2 tab PO HSPRN PRN PRN Reason: Constipation Sodium Chloride ([place] Nasal [place] 0.65%) 0 ml EA NARE QIDPRN PRN PRN Reason: Nasal Congestion Sodium Chloride (Flush - Normal Saline) 10 ml IVF Q12HR [facility] Last Admin: 11/04/17 09:25 Dose: 10 ml Sodium Chloride (Flush - Normal Saline) 10 ml IVF PRN PRN PRN Reason: Saline Flush Last Admin: 11/03/17 11:01 Dose: 10 ml Temazepam (Restoril) 15 mg PO HSPRN PRN PRN Reason: Insomnia
--- NOTE | 2017-11-04 10:49 | PRG ---
DATE OF SERVICE: 11/04/2017 SUBJECTIVE: This morning, she is awake, alert, and responsive. OBJECTIVE: VITAL SIGNS: Sats are 90% room air, respiratory rate 18, temperature 97, blood pressure 145/83. CHEST: [place] decreased breath sounds without any wheezing. CARDIAC: Normal S1, S2, no gallops. ABDOMEN: Soft. No masses. LABORATORY DATA: White count 6000, H&H 8 and 24, platelet count normal, creatinine 2.6. Baseline ch est x-ray left-sided infiltrate is resolved. IMPRESSION: Respiratory failure, aspiration pneumonia, diabetes. PLAN: From a pulmonary standpoint of view, she is stable enough to be moved out of the telemetry. Yeison lang will follow at a distance.
[2017-11-04] MEDS: HumaLOG 300 UNITS/3 ML VIAL SC PRN (13:32)
[2017-11-04] MEDS: Diabetic Tussin 200 MG/10 ML UDCUP PO PRN ×2 (15:48→21:22)
[2017-11-04] MEDS: Ondansetron ODT 4 MG TAB PO PRN (17:14)
--- NOTE | 2017-11-04 19:35 | PRG ---
DATE OF SERVICE: 11/04/2017 SUBJECTIVE: The patient was seen and examined, seems to be doing much better. Noted with the follow ing vital signs. PHYSICAL EXAMINATION: VITAL SIGNS: Afebrile, temperature 97.2, pulse 97, respiratory rate of 18, O2 sat of 96% with blood pressure 125/72. HEENT: Unremarkable with moist oral mucosa. No conjunctival injection or icterus. NECK: Supple. CARDIOVASCULAR SYSTEM: First and second heart sounds were heard. RESPIRATORY SYSTEM: Clear to auscultation. DIGESTIVE SYSTEM: Revealed a benign abdomen with positive bowel sounds. EXTREMITIES: No peripheral edema. SKIN: No new gross rash. LYMPHATICS: No peripheral lymphadenopathy. LABORATORY INVESTIGATIONS: Showed hemoglobin 8.2. Chemistry showed a creatinine down to 2.16. IMPRESSION: 1. Acute on chronic kidney disease. Continue to improve. 2. Severe hyperglycemia, much improved. 3. Diabetes mellitus. PLAN: 1. Continue renal supportive measures. 2. Counseling on the need to improve diabetes control. 3. Further management to be dependent on the clinical course.
[2017-11-04] MEDS: Insulin Glargine 12 UNITS in Pre-Filled Syringe 1 EACH SC SCH (21:22)
[2017-11-05 05:40] LABS: Anion Gap 13 mmol/L (10-20); BUN (Urea Nitrogen) 22 mg/dL (9.8-20.1); Calc. Creatinine Clearance 41 mL/min (70-130); Calcium 8.1 mg/dL (7.8-10.44); Carbon Dioxide 27 mmol/L (22-29); Chloride 100 mmol/L (98-107); Estimated GFR-MDRD 30; Glucose 262 mg/dL (70-105); Potassium 3.2 mmol/L (3.5-5.1); Sodium 137 mmol/L (136-145)
[2017-11-05] MEDS ORDERED: Potassium Chloride 20 MEQ TAB PO SCH (07:00)
[2017-11-05] MEDS: Insulin Glargine 12 UNITS in Pre-Filled Syringe 1 EACH SC SCH (08:57)
[2017-11-05] MEDS: Atorvastatin Calcium 40 MG TAB PO SCH (08:58)
[2017-11-05] MEDS: Famotidine 20 MG TAB PO SCH (08:58)
[2017-11-05] MEDS: Heparin 5,000 UNITS/ML VIAL SC SCH (08:58)
[2017-11-05] MEDS: Metoprolol Tartrate 50 MG TAB PO SCH (08:59)
[2017-11-05] MEDS: NIFEdipine XL 30 MG TAB PO SCH (08:59)
[2017-11-05] MEDS: Saccharomyces boulardii 250 MG CAP PO SCH (08:59)
[2017-11-05] MEDS ORDERED: Insulin Glargine 20 UNITS in Pre-Filled Syringe 1 EACH SC SCH (09:15)
[2017-11-05] MEDS ORDERED: Insulin Detemir 100 UNITS/ML 20 UNITS in Pre-Filled Syringe 1 EACH SC SCH (09:15)
--- NOTE | 2017-11-05 09:41 | DIS ---
DATE OF ADMISSION: 10/30/2017 DATE OF DISCHARGE: 11/05/2017 PRIMARY CARE PHYSICIAN: Shilo Hopson. DISCHARGE DISPOSITION: Home. PRIMARY DISCHARGE DIAGNOSES: 1. Lactic acidosis, resolved. 2. Hyponatremia, corrected. 3. Hypokalemia, corrected. 4. Diabetic ketoacidosis, resolved. 5. Acute respiratory failure with hypoxia, resolved. 6. Acute metabolic encephalopathy, resolved. 7. Demand ischemia of myocardium. 8. Dental infection. 9. Dysphagia, ruled out esophageal pathology. 10. Hypomagnesemia, corrected. 11. Acute kidney failure, improving. 12. Left lower lobe pneumonia. 13. Sepsis with acute organ dysfunction. SECONDARY DISCHARGE DIAGNOSES: Hypertension, dyslipidemia, medication noncompliance, diabetes type 2 , peripheral neuropathy, tobacco abuse disorder, diabetes type 2. PRIMARY PROCEDURE/OPERATION: Endotracheal intubation and mechanical ventilatory support. Upper endo scopy was unremarkable. Central line placement. RADIOLOGICAL INVESTIGATION: CT brain was negative for any acute intracranial process. Chest x-ray w as showing subsequently left lower lobe infiltration. CT neck showing dental infection. SIGNIFICANT LABORATORY DATA: WBC 6.5, hemoglobin 8.2, and platelet 253. Sodium 137, potassium 3.2, BUN 22, creatinine 1.76, calcium 8.1. Urine drug screen positive for amphetamine and methamphetamine . Serum ketone 0.04. Blood culture was negative. Stool for guaiac negative. DISCHARGE MEDICATIONS: Augmentin 500 mg p.o. b.i.d. for 7 days, Lipitor 40 mg p.o. daily, Humalog in sulin as per sliding scale as instructed, Levemir insulin 50 units subcu b.i.d., lisinopril 2.5 mg p. o. daily, metoprolol tartrate 50 mg p.o. b.i.d., Procardia-XL 30 mg p.o. b.i.d., Protonix 40 mg p.o. daily, Florastor 250 mg p.o. daily for 7 days. CONTRAINDICATIONS: None. CODE STATUS: FULL CODE. INPATIENT CONSULTANTS: Dr. Villatoro was following for respiratory failure. Dr. Quigley was following for kidney failure. Dr. Hopkins was consulted for dysphagia. TEST RESULTS PENDING ON DISCHARGE: Pathology biopsy report from esophagus. DISCHARGE PLAN: Post hospital, patient is instructed to follow up with primary care physician [place] [address] HOSPITAL COURSE: A 51-year-old female with above-mentioned medical problem who was admitted by Dr. Junaid fuchs. Please see her H&P for further detail. On admission, patient was septic. She was having altered mental status from metabolic etiology. She required intubation. She had acute respiratory failure with hypoxia as well as acute kidney failure , severe metabolic and diabetic ketoacidosis, demand ischemia of myocardium. She was hypotensive and she was required admission in CCU. She had central line placement. Pulmonary and Critical Care was managing ventilator. Patient was given IV fluid and vasopressor support. She had kidney failure and that is why Dr. Quigley was following, but with IV hydration, the patie nt's renal function was slowly improving towards normal. She did not require any dialysis during thi s admission. The patient had abnormal electrolytes during this admission which we corrected as needed while in [facility]. She had diabetes ketoacidosis, which was treated with DKA protocol treatment in hospital in CCU and s ubsequently upon resolution of diabetic ketoacidosis, patient was transferred to telemetry floor and subsequently we transferred her to medical floor. We adjusted insulin therapy while in hospital as a martir. This patient is sensitive to Humalog insulin with hypoglycemia, but we advised her to go back to her Levemir insulin 50 units b.i.d., which she was taking at home. While in hospital, we were giv ing her a little bit less and that is why her blood sugar was high upon discharge, but patient is giv en education about monitoring of blood sugar and follow up with primary care physician. Necessary pa tient education also given about avoidance of hypoglycemia. While in hospital, patient was very pretty much adamant for smoking and she was [facility], we provided patient education about smoking cessation. Initially, patient was hypertensive and subsequently patient was hypertensive and required a blood pr essure medication adjustment. We resumed previous home medication and with that, patient's blood pre ssure was well controlled. The patient does have methamphetamine and amphetamine positive in her urine drug screen this admissio n, but she refused to have a drug abuse. She was also complaining of dysphagia, but when we did an u pper endoscopy that was completely fine. This patient is extremely noncompliant and she is at risk for recurrent admission for similar problem . I tried to give her best patient education about compliance with treatment, diabetes and medicatio n, but doubt this will continue to be followed by her. The patient is seen and examined at bedside today. PHYSICAL EXAMINATION: VITAL SIGNS: Currently, temperature 98.7, pulse 97, respiratory rate 16, saturation 96% on room air, blood pressure 143/76, and weight 151 pounds. GENERAL: The patient is currently alert, awake, no obvious acute distress. HEAD: Normocephalic, atraumatic. EYES: Pupils round, reactive to light. Extraocular muscle intact. ENT: Oropharynx within normal limits. Moist mucous membranes. No oral lesion, no pharyngeal erythe ma, no exudate. NECK: Supple, no JVD, no thyromegaly, no carotid bruit. LUNGS: Clear to auscultation without any rhonchi or rales. CARDIAC: S1, S2 regular without any murmur. ABDOMEN: Soft and benign without any tenderness. EXTREMITIES: No edema. NEUROLOGIC: Nonfocal examination. This patient is strongly advised to make appointment with dentist for taking care of her dental infec tion. Initially while in hospital, she was given vancomycin, Zosyn, and subsequently we changed to Z osyn only and that antibiotic therapy was changed to Augmentin upon discharge. While in hospital, we did chest x-ray which also showed left lower lobe pneumonia and that was aspiration related. By the time of discharge, patient was on room air. She was ambulatory and she was without any respiratory distress. All new medication prescription sent to her pharmacy. Overall, patient is medically stable for disch arge today though she is at high risk for recurrent admission.
--- NOTE | 2017-11-05 10:03 | PDOC.PN ---
- Subjective Encounter Start Date: 11/05/17 Encounter Start Time: 07:30 Patient seen and examined. No new complaints. No overnight events - Objective Resuscitation Status: Resuscitation Status FULL:Full Resuscitation MAR Reviewed: Yes Vital Signs & Weight: Vital Signs (12 hours) Temp Pulse Resp BP BP Pulse Ox 11/05/17 08:59 97 154/88 H 11/05/17 06:21 97 16 96 11/05/17 04:00 98.7 F 97 18 143/76 H 96 11/05/17 02:18 98 16 95 11/05/17 00:00 98.9 F 93 18 158/90 H 97 Weight Weight 151 lb Most Recent Monitor Data Heart Rate from ECG 111 NIBP 156/73 NIBP BP-Mean 94 Respiration from ECG 0 SpO2 100 I&O: 11/04/17 11/05/17 11/06/17 06:59 06:59 06:59 Intake Total 720 Balance 720 Result Diagrams: 11/04/17 04:26 11/05/17 04:57 Additional Labs: Accuchecks 11/05/17 11/05/17 11/04/17 03:18 00:26 20:11 POC Glucose 278 H 275 H 232 H 11/04/17 11/04/17 11/04/17 17:41 16:18 12:57 POC Glucose 122 H 69 L 254 H 11/04/17 11:06 POC Glucose 279 H Phys Exam - Physical Examination Constitutional: NAD HEENT: PERRLA, moist MMs, sclera anicteric Neck: no JVD, supple Respiratory: no wheezing, no rales, no rhonchi Cardiovascular: RRR, no significant murmur, no rub Gastrointestinal: soft, non-tender, no distention, positive bowel sounds Musculoskeletal: no edema, pulses present Neurological: non-focal, normal sensation Lymphatic: no nodes Psychiatric: normal affect Skin: no rash, normal turgor Dx/Plan (1) Acute metabolic encephalopathy Code(s): G93.41 - METABOLIC ENCEPHALOPATHY Status: Resolved Comment: (2) Acute renal failure (ARF) Status: Acute Comment: improving (3) Acute respiratory failure with hypoxia Code(s): J96.01 - ACUTE RESPIRATORY FAILURE WITH HYPOXIA Status: Resolved (4) DKA, type 2 Code(s): E11.10 - TYPE 2 DIABETES MELLITUS WITH KETOACIDOSIS WITHOUT COMA Status: Resolved (5) Demand ischemia Code(s): I24.8 - OTHER FORMS OF ACUTE ISCHEMIC HEART DISEASE Status: Acute (6) Dental infection Code(s): K04.7 - PERIAPICAL ABSCESS WITHOUT SINUS Status: Acute (7) Diabetic ketoacidosis Code(s): E11.10 - TYPE 2 DIABETES MELLITUS WITH KETOACIDOSIS WITHOUT COMA Status: Resolved Comment: (8) Hypokalemia Code(s): E87.6 - HYPOKALEMIA Status: Resolved (9) Hyponatremia Code(s): E87.1 - HYPO-OSMOLALITY AND HYPONATREMIA Status: Resolved (10) Lactic acidosis Code(s): E87.2 - ACIDOSIS Status: Resolved (11) Sepsis with acute organ dysfunction Code(s): A41.9 - SEPSIS, UNSPECIFIED ORGANISM; R65.20 - SEVERE SEPSIS WITHOUT SEPTIC SHOCK Status: Acute (12) HTN (hypertension) Code(s): I10 - ESSENTIAL (PRIMARY) HYPERTENSION Status: Chronic (13) Hyperlipidemia Code(s): E78.5 - HYPERLIPIDEMIA, UNSPECIFIED Status: Chronic (14) Noncompliance with diet and medication regimen Code(s): Z91.11 - PATIENT'S NONCOMPLIANCE WITH DIETARY REGIMEN; Z91.14 - PATIENT 'S OTHER NONCOMPLIANCE WITH MEDICATION REGIMEN Status: Chronic (15) Peripheral neuropathy Code(s): G62.9 - POLYNEUROPATHY, UNSPECIFIED Status: Chronic (16) Tobacco abuse Code(s): Z72.0 - TOBACCO USE Status: Chronic (17) Type II diabetes mellitus Status: Chronic (18) Hypomagnesemia Code(s): E83.42 - HYPOMAGNESEMIA Status: Acute (19) Left lower lobe pneumonia Code(s): J18.1 - LOBAR PNEUMONIA, UNSPECIFIED ORGANISM Status: Acute Qualifiers: Pneumonia type: aspiration pneumonia (20) Dysphagia Code(s): R13.10 - DYSPHAGIA, UNSPECIFIED Status: Acute - Plan cont current plan of care, continue antibiotics * medication reviewed as below * symptomatic treatment * see my discharge kevin. Review of Systems - Review of Systems Eyes: negative: Pain, Vision Change, Conjunctivae Inflammation, Eyelid Inflammation, Redness, Other ENT: negative: Ear Pain, Ear Discharge, Nose Pain, Nose Discharge, Nose Congestion, Mouth Pain, Mouth Swelling, Throat Pain, Throat Swelling, Other Respiratory: negative: Cough, Dry, Shortness of Breath, Hemoptysis, SOB with Excertion, Pleuritic Pain, Sputum, Wheezing Cardiovascular: negative: chest pain, palpitations, orthopnea, paroxysmal nocturnal dyspnea, edema, light headedness, other Gastrointestinal: negative: Nausea, Vomiting, Abdominal Pain, Diarrhea, Constipation, Melena, Hematochezia, Other Genitourinary: negative: Dysuria, Frequency, Incontinence, Hematuria, Retention , Other Musculoskeletal: negative: Neck Pain, Shoulder Pain, Arm Pain, Back Pain, Hand Pain, Leg Pain, Foot Pain, Other Skin: negative: Rash, Lesions, Jan, Bruising, Other - Medications/Allergies Allergies/Adverse Reactions: Allergies Allergy/AdvReac Type Severity Reaction Status Date / Time hydralazine Allergy Verified 07/17/17 14:46 naproxen [From Naprosyn] Allergy Verified 07/17/17 14:46 Medications: Current Medications Acetaminophen (Tylenol) 650 mg PO Q4H PRN PRN Reason: Headache/Fever or Mild Pain Hydrocodone Bitart/Acetaminophen ([place] 5/325) 1 tab PO Q4H PRN PRN Reason: Moderate Pain (4-6) Al Hydroxide/Mg Hydroxide (Maalox) 15 ml PO Q4H PRN PRN Reason: Heartburn or Indigestion Albuterol/Ipratropium (Duoneb) 3 ml NEB [id number] PRN PRN Reason: SOB &/or Wheezing Albuterol/Ipratropium (Duoneb) 3 ml NEB [id number] [facility] Last Admin: 11/05/17 06:21 Dose: 3 ml Amoxicillin/Clavulanate Potassium (Augmentin) 500 mg PO Q12HR [facility] Last Admin: 11/04/17 21:22 Dose: 500 mg Artificial Tears (Tears Naturale) 0 drop EA EYE PRN PRN PRN Reason: Dry Eyes Atorvastatin Calcium (Lipitor) 40 mg PO DAILY [facility] Last Admin: 11/05/17 08:58 Dose: 40 mg Bisacodyl (Dulcolax) 10 mg TX DAILYPRN PRN PRN Reason: Constipation Clonidine (Catapres) 0.1 mg PO Q4H PRN PRN Reason: SBP GREATER THAN 160 Last Admin: 11/03/17 00:57 Dose: 0.1 mg Dextrose/Water (Dextrose 50%) 25 gm IVP PRN PRN PRN Reason: HYPOGLYCEMIA PROTOCOL Last Admin: 11/02/17 16:30 Dose: 25 gm Famotidine (Pepcid) 20 mg PO DAILY [facility] Last Admin: 11/05/17 08:58 Dose: 20 mg Glucagon (Glucagon) 1 mg IM PRN PRN PRN Reason: HYPOGLYCEMIA PROTOCOL Guaifenesin (Robitussin Sf) 200 mg PO Q4H PRN PRN Reason: Cough Last Admin: 11/04/17 21:22 Dose: 200 mg Heparin Sodium (Porcine) (Heparin) 5,000 units SC BID [facility] Last Admin: 11/05/17 08:58 Dose: 5,000 units Dextrose/Water (D5w) 1,000 mls @ 0 mls/hr IV INF PRN; As Directed PRN Reason: HYPOGLYCEMIA PROTOCOL Insulin Human Lispro (Humalog) 0 units SC .AGGRESSIVE SLIDING PRN PRN Reason: Aggressive Correctional Scale Last Admin: 11/04/17 13:32 Dose: 9 unit Insulin Human Lispro (Humalog) 0 units SC .BEDTIME SLIDING SC PRN PRN Reason: Bedtime Correctional Scale Labetalol HCl (Normodyne) 10 mg SLOW IVP Q4H PRN PRN Reason: SBP GREATER THAN 160 Last Admin: 11/03/17 21:23 Dose: 2 ml Loperamide HCl (Imodium) 2 mg PO PRN PRN PRN Reason: Diarrhea/Loose Stools Loratadine (Claritin) 10 mg PO DAILYPRN PRN PRN Reason: Sinus Symptoms Magnesium Hydroxide (Milk Of Magnesium) 30 ml PO DAILYPRN PRN PRN Reason: Constipation Metoprolol Tartrate (Lopressor) 50 mg PO BID [facility] Last Admin: 11/05/17 08:59 Dose: 50 mg Mineral Oil/White Petrolatum (Eucerin Cream) 0 gm TOP BIDPRN PRN PRN Reason: Dry Skin Nifedipine (Procardia Xl) 30 mg PO BID [facility] Last Admin: 11/05/17 08:59 Dose: 30 mg Ondansetron HCl (Zofran) 4 mg IVP Q6H PRN PRN Reason: Nausea/Vomiting Ondansetron HCl (Zofran Odt) 4 mg PO Q6H PRN PRN Reason: Nausea/Vomiting Last Admin: 11/04/17 17:14 Dose: 4 mg Pantoprazole Sodium (Protonix) 40 mg PO 2100 [facility] Last Admin: 11/04/17 21:22 Dose: 40 mg Phenol (Chloraseptic [place] 180 Ml Bot) 0 ml PO PRN PRN PRN Reason: Sore Throat Saccharomyces Boulardii (Florastor) 250 mg PO DAILY [facility] Last Admin: 11/05/17 08:59 Dose: 250 mg Senna (Senokot) 2 tab PO HSPRN PRN PRN Reason: Constipation Sodium Chloride ([place] Nasal [place] 0.65%) 0 ml EA NARE QIDPRN PRN PRN Reason: Nasal Congestion Sodium Chloride (Flush - Normal Saline) 10 ml IVF Q12HR [facility] Last Admin: 11/05/17 08:59 Dose: 10 ml Sodium Chloride (Flush - Normal Saline) 10 ml IVF PRN PRN PRN Reason: Saline Flush Last Admin: 11/03/17 11:01 Dose: 10 ml Temazepam (Restoril) 15 mg PO HSPRN PRN PRN Reason: Insomnia
[2017-11-05 10:29] VITALS: TEMP 98.7
[2017-11-05] MEDS: Amoxicillin/Potassium Clav 500 MG TAB PO SCH (11:00)
[2017-11-05] MEDS ORDERED: Insulin Glargine 10 UNITS in Pre-Filled Syringe 1 EACH SC SCH (11:30)
[2017-11-05 11:40] VITALS: BP 151/89
== END 2017-11-05 11:35 | disposition left against medical advice (07) | DRG 871 ==
LOC: ERS 18:45 → CCU 20:30 → 2NO 11-01 14:40 → T4-A 11-04 11:07
PROVIDERS: ADMIT Internal Medicine; ATTEND Internal Medicine
PROC: 5A1935Z Respiratory Ventilation, Less than 24 Consecutive Hours (ICD-10-PCS; principal; 2017-10-30)
PROC: 0BH17EZ Insertion of Endotracheal Airway into Trachea, Via Natural or Artificial Opening (ICD-10-PCS; 2017-10-30)
PROC: 02HV33Z Insertion of Infusion Device into Superior Vena Cava, Percutaneous Approach (ICD-10-PCS; 2017-10-30)
PROC: 05H533Z Insertion of Infusion Device into Right Subclavian Vein, Percutaneous Approach (ICD-10-PCS; 2017-10-30)
PROC: 0DB38ZX Excision of Lower Esophagus, Via Natural or Artificial Opening Endoscopic, Diagnostic (ICD-10-PCS; 2017-11-03)
DX: A41.9 Sepsis, unspecified organism (principal); J69.0 Pneumonitis due to inhalation of food and vomit; E11.10 Type 2 diabetes mellitus with ketoacidosis without coma; J96.01 Acute respiratory failure with hypoxia; G93.41 Metabolic encephalopathy; N17.9 Acute kidney failure, unspecified; E87.1 Hypo-osmolality and hyponatremia; I24.8 Other forms of acute ischemic heart disease; R65.20 Severe sepsis without septic shock; I10 Essential (primary) hypertension; E78.5 Hyperlipidemia, unspecified; E11.42 Type 2 diabetes mellitus with diabetic polyneuropathy; K20.9 Esophagitis, unspecified; K04.7 Periapical abscess without sinus; E83.42 Hypomagnesemia; E87.6 Hypokalemia; R13.10 Dysphagia, unspecified; F17.210 Nicotine dependence, cigarettes, uncomplicated; F15.90 Other stimulant use, unspecified, uncomplicated; Z91.14 Patient's other noncompliance with medication regimen; Z91.11 Patient's noncompliance with dietary regimen; Z88.6 Allergy status to analgesic agent; Z88.8 Allergy status to other drugs, medicaments and biological substances; Z79.4 Long term (current) use of insulin; Z79.899 Other long term (current) drug therapy
CPT/HCPCS: 31500; 36415; 36416; 36556; 51702; 70450; 70490; 71045; 76770; 80048; 80053; 80306; 82010; 82274; 82553; 82805; 83605; 83735; 84100; 84484; 85025; 87040; 88305; 88312; 88313; 94002; 94003; 94640; 96365; 96366; 96368; 96375; A4216; G8978-GP-CI; G8979-GP-CI; G8980-GP-CI; J1644; J1815; J2060; J2310; J2543; J2704; J3010; J3370; J3475; J3480; J3490; J7050; J7620; P9045; Q0162

== ENCOUNTER 2017-12-03 17:04 | Observation (INO) | payer SELFPAY ==
[2017-12-03 17:50] LABS: Base Excess-Venous -1.9 mmol/L (0 (+/- 2.5)); Bicarbonate (HCO3v) 21.7 mmol/L (1.0-85.0); CO2 Tension (PvCO2) 31.6 mmHg (41.0-51.0); Calcium, Ionized 1.05 mmol/L (1.12-1.32); Hemoglobin - Calc 8.7 g/dL (12.0-18.0); O2 Tension (PvO2) 104.6 mmHg (35.0-45.0); T. Carbon Dioxide 22.7 mmol/L (1.0-85.0); pH (Venous) 7.444 (7.35-7.45); vO2 Saturation-calc 98.3 % (94-98)
[2017-12-03 18:03] LABS: ALT (SGPT) 8 U/L (8-55); AST (SGOT) 10 U/L (5-34); Albumin 2.2 g/dL (3.5-5.0); Alkaline Phosphatase 152 U/L (40-150); Anion Gap 6 mmol/L (10-20); BUN (Urea Nitrogen) 15 mg/dL (9.8-20.1); Bilirubin, Total Less than 0.2 mg/dL (0.2-1.2); Calc. Creatinine Clearance 0 mL/min (70-130); Calcium 7.6 mg/dL (7.8-10.44); Carbon Dioxide 25 mmol/L (22-29); Chloride 109 mmol/L (98-107); Estimated GFR-MDRD 45; Globulin 2.5 g/dL (2.4-3.5); Glucose 146 mg/dL (70-105); Protein, Total 4.7 g/dL (6.0-8.3); Sodium 137 mmol/L (136-145)
[2017-12-03 18:07] LABS: CKMB 2.7 ng/mL (0-6.6); Troponin I 0.121 ng/mL (< 0.028)
[2017-12-03] MEDS ORDERED: Potassium Chloride 20 MEQ TAB ONE (18:37)
[2017-12-03] MEDS ORDERED: HumaLOG 300 UNITS/3 ML VIAL SC PRN (19:32)
[2017-12-03] MEDS ORDERED: Ondansetron HCl/PF 4 MG/2 ML Vial IVP PRN (19:32)
[2017-12-03] MEDS ORDERED: Ondansetron ODT 4 MG TAB PO PRN (19:32)
[2017-12-03] MEDS ORDERED: HYDROcodone/Acetaminophen 5/325 mg Tablet PO PRN (19:32)
[2017-12-03] MEDS ORDERED: Dextrose 5% in Water 1,000 ML IV PRN (19:32)
[2017-12-03] MEDS ORDERED: Acetaminophen 325 MG TAB PO PRN (19:32)
[2017-12-03] MEDS ORDERED: Dextrose 50% Abboject 50 ML SYRINGE SLOW IVP PRN (19:32)
[2017-12-03] MEDS ORDERED: Enoxaparin Sodium 30 MG/0.3 ML SYRINGE SC SCH (19:45)
[2017-12-03] MEDS ORDERED: Insulin Glargine 30 UNITS in Pre-Filled Syringe SC SCH (19:45)
[2017-12-03] MEDS: Famotidine 20 MG TAB PO SCH (21:12)
[2017-12-03] MEDS: NS 0.9% w/ 20 MEQ KCL 1,000 ML/1,000 ML BAG IV SCH (21:18)
[2017-12-03] MEDS ORDERED: NIFEdipine XL 30 MG TAB PO SCH (22:15)
[2017-12-03] MEDS ORDERED: Metoprolol Tartrate 50 MG TAB PO SCH (22:15)
[2017-12-03] MEDS ORDERED: Gabapentin 400 MG CAP PO SCH (22:15)
[2017-12-04 01:50] VITALS: BMI 22.7
[2017-12-04] MEDS: NS 0.9% w/ 20 MEQ KCL 1,000 ML/1,000 ML BAG IV SCH ×2 (05:39→12:32)
[2017-12-04 06:07] LABS: #Basophils 0.1 thou/uL (0.0-0.2); #Eosinphils 0.3 thou/uL (0.0-0.7); #Lymphocytes 2.8 thou/uL (1.20-3.40); #Monocytes 0.7 thou/uL (0.11-0.59); #Neutrophils 6.1 thou/uL (1.40-6.50); %Basophils 1.2 % (0.0-1.0); %Eosinophils 2.8 % (0.0-10.0); %Lymphocytes 28.2 % (21.0-51.0); %Monocytes 7.3 % (0.0-10.0); %Neutrophils 60.5 % (42.0-75.0); Hemoglobin 9.4 g/dL (12.0-16.0); Mean Corpuscular HGB CONC 34.4 g/dL (32.0-36.0); Mean Corpuscular Hemoglobin 29.4 pg (27.0-31.0); Mean Corpuscular Volume 85.5 fl (81.0-99.0); Mean Platelet Volume 7.5 fL (7.4-10.4); Platelet Count 344 thou/uL (130-400); RBC Distribution Width 13.3 % (11.5-14.5)
[2017-12-04 06:20] LABS: Anion Gap 12 mmol/L (10-20); BUN (Urea Nitrogen) 15 mg/dL (9.8-20.1); Calc. Creatinine Clearance 51 mL/min (70-130); Calcium 7.7 mg/dL (7.8-10.44); Carbon Dioxide 18 mmol/L (22-29); Chloride 113 mmol/L (98-107); Estimated GFR-MDRD 43; Glucose 86 mg/dL (70-105); Magnesium 1.6 mg/dL (1.6-2.6); Potassium 3.7 mmol/L (3.5-5.1); Sodium 139 mmol/L (136-145)
[2017-12-04] MEDS ORDERED: INSULIN GLARGINE SC SCH (09:00)
[2017-12-04] MEDS ORDERED: Saccharomyces boulardii 250 MG CAP PO SCH (09:00)
[2017-12-04] MEDS ORDERED: Aspirin 81 mg Enteric Coated Tablet PO SCH (09:00)
[2017-12-04] MEDS ORDERED: Atorvastatin Calcium 40 MG TAB PO SCH (09:00)
[2017-12-04] MEDS ORDERED: PRE FILLED SC SCH (09:00)
[2017-12-04] MEDS ORDERED: NIFEdipine XL 30 MG TAB PO SCH (09:00)
[2017-12-04] MEDS ORDERED: Metoprolol Tartrate 50 MG TAB PO SCH (09:00)
[2017-12-04] MEDS ORDERED: Non-Formulary Item 1 EACH (Insulin Detemir 100 Units/Ml [Levemir] 40 UNITS) SQ SCH (09:00)
[2017-12-04] MEDS: Gabapentin 400 MG CAP PO SCH ×2 (09:23→12:32)
[2017-12-04] MEDS: Famotidine 20 MG TAB PO SCH (09:23)
[2017-12-04] MEDS: Insulin Glargine 40 UNITS in Pre-Filled Syringe 1 EACH SC SCH ×2 (09:40→11:19)
[2017-12-04 11:52] VITALS: BP 115/64; TEMP 98.6
--- NOTE | 2017-12-04 13:53 | HP ---
DATE OF ADMISSION: 12/03/2017 TIME OF SERVICE: 1800. CHIEF COMPLAINT: DKA. HISTORY OF PRESENT ILLNESS: Ms. Kaba is a 51-year-old female with history of diabetes mellitus type 1, poorly controlled and hypertension. She presented initially to the [facility] when she was found preoperatively earlier in the day while she was fasting to have a blood sugar in the 500s. She started feeling nauseated, did take some insulin at home, but continued to feel worse. In the emergency department, she was noted to have an anion gap metabolic acidosis with pH 7.2, gluco se was greater than 500. Her anion gap was 28. Sodium was low at 131, likely pseudohyponatremia. S he was given IV fluids, insulin drip at 3 units per hour and transferred here. On arrival to our facility, her pH was normal, gap was closed, sugar was down to 209, we were subsequ ently called for admission. The patient denies any fevers or chills, chest pain, short of breath. No nausea or vomiting. She is feeling better now. PAST MEDICAL HISTORY: 1. Diabetes mellitus type 1. 2. Hypertension. 3. History of diabetic ketoacidosis. 4. Hyperglycemia. PAST SURGICAL HISTORY: 1. Include . 2. Hysterectomy. HOME MEDICATIONS: 1. Metoprolol tartrate 50 mg p.o. b.i.d. 2. Protonix 40 mg daily. 3. Lipitor 40 mg p.o. at bedtime. 4. Gabapentin 400 mg p.o. t.i.d. 5. Levemir 40 units subcu q.a.m. 6. Aspirin 81 mg daily. 7. Procardia-XL 30 mg p.o. b.i.d. ALLERGIES: CAMPHOR, NAPROSYN, HYDRALAZINE. FAMILY HISTORY: Negative for clotting or bleeding disorder. No immune dysfunction. SOCIAL HISTORY: Negative for habits x3. REVIEW OF SYSTEMS: All systems reviewed and negative except stated in HPI. PHYSICAL EXAMINATION: VITAL SIGNS: Temperature 98.2, pulse 90, blood pressure 135/50, respiratory rate 16, satting 94% on room air. GENERAL: She is awake. She is alert. She is oriented x3. She is a chronically ill-appearing, whit e female who appears to be in no acute distress. HEENT: Normocephalic, atraumatic. Pupils equal and reactive bilaterally. Mucous membranes are mois t. No visible lesions or thrush. NECK: Supple. No JVD or thyromegaly. She had normal carotid upstrokes without bruit. LUNGS: Clear. No wheezing, no rales, no rhonchi. She had good air movement and symmetrical chest e xcursion. CARDIOVASCULAR: Normal S1, S2. She is slightly tachycardic, but regular. No audible murmurs. ABDOMEN: Soft, nontender, nondistended. No hepatosplenomegaly. EXTREMITIES: No cyanosis, no clubbing, no edema. SKIN: Warm, moist and well well-perfused. She had no rash or lesion. MUSCULOSKELETAL: Normal to inspection. NEURO: Normal. There is no palpable effusion, no inflammation. LABORATORY DATA: Sodium 137, potassium 3.0, chloride 109, bicarb 25, BUN 15, creatinine 1.26, glucos e 146 and calcium 7.6. Liver function within normal limits. Albumin is a little bit low at 4.5 and albumin is 2.2. CBC was not done just a point of care hematocrit of 25. ASSESSMENT AND PLAN: 1. Diabetic ketoacidosis, resolved on arrival here. We will go ahead and give her a long-acting ins ulin and let her eat with a sliding scale correction. Watch her overnight. Resume her home medicati ons in the morning. If she does well, she will be able to go home. 2. Hypertension. We will continue home medications. 3. Gastroesophageal reflux disease. Continue Protonix.
--- NOTE | 2017-12-04 14:30 | DIS ---
DATE OF ADMISSION: 12/03/2017 DATE OF DISCHARGE: 12/04/2017 PRIMARY CARE PHYSICIAN: Dr. Connor. DISCHARGE DIAGNOSES: 1. Diabetic ketoacidosis, resolved on presentation. 2. Diabetes mellitus type 1. 3. Uncontrolled with hyperglycemia. 4. Hypertension. 5. Gastroesophageal reflux disease. CONSULTATION: None. PROCEDURE: None. HISTORY AND PHYSICAL: Ms. Kaba is a 51-year-old female with multiple admissions for DKA in the past who was fasting for lab testing and became ill with nausea and vomiting. She was found to have a bl ood sugar ranging in the 500 and was sent to the emergency department. In the emergency department pau [facility], she was noted to have a pH of 7.2, glucose ranging in the 500. She had an increased anio n gap and was started on insulin drip and transported here. On arrival to our ER, DKA resolved. We are called for admission to finish treatment. HOSPITAL COURSE: The patient was seen and examined by me in the emergency department. She was stopp ed of the insulin drip and was started on long acting Levemir per home dosing. Overnight, her sugars remained stable. Her gap closed. Her electrolytes were normal and she was nauseated but was able t o eat and tolerate. She was stable for discharge with outpatient follow up. PHYSICAL EXAMINATION: The patient was seen and examined on the day of discharge. Discharge plan and disposition were discussed with the patient [id number] at the bedside. DISCHARGE MEDICATIONS: 1. Aspirin 81 mg daily. 2. Atorvastatin 40 mg p.o. at bedtime. 3. Neurontin 400 mg p.o. q.i.d. 4. Humalog sliding scale as before. 5. Levemir 40 units subcu daily. 6. Metoprolol tartrate 50 mg by mouth b.i.d. 7. Procardia XL 30 mg p.o. b.i.d. 8. Protonix 40 mg daily. 9. Florastor 250 mg daily as needed. DISCHARGE CONDITION: Stable. DISPOSITION: Being discharged home via private vehicle. DISCHARGE ACTIVITY: Per cardiopulmonary limits. DISCHARGE DIET: Heart health diabetic diet strongly recommended.
== END 2017-12-04 14:49 | disposition home or self-care (01) ==
LOC: ERS 17:04 → 2SW 18:48
PROVIDERS: ADMIT Internal Medicine Infectious Disease; ATTEND Internal Medicine Infectious Disease
DX: E10.10 Type 1 diabetes mellitus with ketoacidosis without coma (principal); I10 Essential (primary) hypertension; E78.5 Hyperlipidemia, unspecified; K21.9 Gastro-esophageal reflux disease without esophagitis; Z79.82 Long term (current) use of aspirin; Z79.899 Other long term (current) drug therapy; Z88.8 Allergy status to other drugs, medicaments and biological substances; Z91.048 Other nonmedicinal substance allergy status
CPT/HCPCS: 36415; 36416; 80048; 82330; 82553; 82803; 83735; 84484; 85025; 96365; 96366; 96372; 96375; 99285; G0378; J1650

== ENCOUNTER 2018-03-05 17:26 | Inpatient (IN) | payer MEDICAID, OTHER ==
[2018-03-05 18:20] LABS: #Basophils 0.1 thou/uL (0.0-0.2); #Lymphocytes 1.1 thou/uL (1.20-3.40); #Monocytes 0.6 thou/uL (0.11-0.59); #Neutrophils 9.6 thou/uL (1.40-6.50); %Basophils 0.7 % (0.0-1.0); %Eosinophils 0.4 % (0.0-10.0); %Lymphocytes 9.2 % (21.0-51.0); %Monocytes 5.1 % (0.0-10.0); %Neutrophils 84.6 % (42.0-75.0); Hemoglobin 9.1 g/dL (12.0-16.0); Mean Corpuscular HGB CONC 31.1 g/dL (32.0-36.0); Mean Corpuscular Hemoglobin 29.6 pg (27.0-31.0); Mean Platelet Volume 9.4 fL (7.4-10.4); Platelet Count 386 thou/uL (130-400); RBC Distribution Width 14.6 % (11.5-14.5); Red Blood Cell (RBC) Count 3.07 mill/uL (4.20-5.40); White Blood Cell (WBC) Count 11.4 thou/uL (4.8-10.8)
[2018-03-05 18:26] LABS: Base Excess-Venous -20.6 mmol/L (0 (+/- 2.5)); Bicarbonate (HCO3v) 5.6 mmol/L (1.0-85.0); CO2 Tension (PvCO2) 14.9 mmHg (41.0-51.0); Calcium, Ionized 0.86 mmol/L (1.12-1.32); Hemoglobin - Calc 10.3 g/dL (12.0-18.0); O2 Tension (PvO2) 72.4 mmHg (35.0-45.0); Potassium 4.1 mmol/L (3.4-4.7); T. Carbon Dioxide 6.1 mmol/L (1.0-85.0); pH (Venous) 7.184 (7.35-7.45); vO2 Saturation-calc 90.8 % (94-98)
--- NOTE | 2018-03-05 18:26 | RAD ---
SINGLE VIEW OF THE CHEST: 03/05/18 COMPARISON: 12/03/17 HISTORY: Shortness of breath for three days and chest pain for three hours. FINDINGS: Single view of the chest shows a normal sized cardiomediastinal silhouette. There are air space opaci ties in both lower lobes, left greater than right which likely represent bibasilar infiltrates. An ad jacent pleural effusion may also be seen on the left. IMPRESSION: Bibasilar infiltrate. POS: C
[2018-03-05 18:48] LABS: ALT (SGPT) 21 U/L (8-55); AST (SGOT) 73 U/L (5-34); Albumin 2.8 g/dL (3.5-5.0); Alkaline Phosphatase 218 U/L (40-150); BUN (Urea Nitrogen) 32 mg/dL (9.8-20.1); Bilirubin, Total 0.3 mg/dL (0.2-1.2); Calc. Creatinine Clearance 0 mL/min (70-130); Calcium 7.7 mg/dL (7.8-10.44); Carbon Dioxide Less than 8 mmol/L (22-29); Chloride 94 mmol/L (98-107); Estimated GFR-MDRD 19; Globulin 3.3 g/dL (2.4-3.5); Glucose 1023 mg/dL (70-105); Magnesium 1.9 mg/dL (1.6-2.6); Potassium 4.3 mmol/L (3.5-5.1); Protein, Total 6.1 g/dL (6.0-8.3); Sodium 123 mmol/L (136-145)
[2018-03-05 18:59] LABS: CKMB 28.7 ng/mL (0-6.6); Troponin I 20.857 ng/mL (< 0.028)
[2018-03-05 19:07] LABS: Osmolality, Serum 336 mOsm/kg (280-295)
[2018-03-05] MEDS ORDERED: Cefepime 2 GM VIAL ONE (19:17)
[2018-03-05] MEDS ORDERED: Heparin 25,000 units/D5W 500 ML ONE (19:17)
[2018-03-05] MEDS ORDERED: Sodium Bicarb 50 MEQ/50 ML Abboject 8.4% SYRINGE ONE (19:17)
[2018-03-05 19:19] LABS: INR-International Normal Ratio 1.1; PTT 28.6 SEC (22.9-36.1); Prothrombin Time 14.7 SEC (12.0-14.7)
[2018-03-05] MEDS ORDERED: Heparin 1,000 UNITS/ML VIAL ONE (19:37)
[2018-03-05] MEDS ORDERED: NS 0.9% w/ 20 MEQ KCL 1,000 ML IV SCH (20:00)
[2018-03-05] MEDS ORDERED: Diazepam 5 MG TAB ONE (20:44)
--- NOTE | 2018-03-05 21:47 | RAD ---
PORTABLE AP CHEST X-RAY 03/05/18 HISTORY: Central line placement. COMPARISON: 03/05/18 at 1659 hours. FINDINGS: There has been interval placement of a right internal jugular vein central venous catheter with tip o verlying the expected location of the proximal SVC. Bibasilar pleural and parenchymal lung changes ar e present likely related to bilateral pleural effusions and associated atelectasis. Superimposed pneu monia at the left lung base cannot be entirely excluded. Pulmonary vasculature is borderline increase d. The cardiac silhouette is magnified by projection. No other interval change. IMPRESSION: 1. Interval placement of right internal jugular vein central venous catheter without evidence of pneumothorax. 2. Bibasilar pleural and parenchymal lung changes which may represent bilateral pleural effusion s and atelectasis. Superimposed pneumonia at the left lung base cannot be excluded. [facility] POS: SIMA
[2018-03-05] MEDS ORDERED: Insulin Regular 300 UNITS/3 ML VIAL ONE (22:03)
[2018-03-05] MEDS ORDERED: Lorazepam 2 MG/ML VIAL ONE (22:22)
[2018-03-05 23:04] LABS: BUN (Urea Nitrogen) 35 mg/dL (9.8-20.1); Calc. Creatinine Clearance 0 mL/min (70-130); Calcium 7.3 mg/dL (7.8-10.44); Carbon Dioxide Less than 8 mmol/L (22-29); Chloride 95 mmol/L (98-107); Estimated GFR-MDRD 19; Glucose 1085 mg/dL (70-105); Potassium 4.4 mmol/L (3.5-5.1); Sodium 124 mmol/L (136-145)
[2018-03-05 23:11] LABS: Lactic Acid 2.5 mmol/L (0.5-2.2)
[2018-03-05] MEDS ORDERED: HumaLOG 300 UNITS/3 ML VIAL SC PRN ×2 (23:22)
[2018-03-05] MEDS ORDERED: Dextrose 50% Abboject 50 ML SYRINGE SLOW IVP PRN (23:22)
[2018-03-05] MEDS ORDERED: Insulin Regular 300 UNITS/3 ML VIAL SC PRN (23:22)
[2018-03-05] MEDS ORDERED: Dextrose 5% in Water 1,000 ML IV PRN (23:22)
[2018-03-05] MEDS ORDERED: Ondansetron ODT 4 MG TAB PO PRN (23:23)
[2018-03-05] MEDS ORDERED: Bisacodyl 5 MG TAB PO PRN (23:23)
[2018-03-05] MEDS ORDERED: Acetaminophen 650 MG Suppository PR PRN (23:23)
[2018-03-05] MEDS ORDERED: Fleet Enema 133 ML BOT PR PRN (23:23)
[2018-03-05] MEDS ORDERED: Ondansetron HCl/PF 4 MG/2 ML Vial IVP PRN (23:23)
[2018-03-05] MEDS ORDERED: CCU Electrolyte Replacement 1 EACH FS ONE (23:41)
[2018-03-05] MEDS: Heparin 25,000 units/D5W 500 ML IVPB SCH (23:42)
[2018-03-06] MEDS ORDERED: Potassium Phosphate 15 MMOL in Sodium Chloride 0.9% 250 ML 250 ML IV PRN (00:01)
[2018-03-06] MEDS ORDERED: CCU ELECTROLYTE REPLACEMENT PROTOCOL FS PRN (00:01)
[2018-03-06] MEDS ORDERED: Potassium Phosphate 9 MMOL in Sodium Chloride 0.9% 100 ML IVPB PRN (00:01)
[2018-03-06] MEDS ORDERED: Magnesium 2 GM/NS 0.9% 100 ML 2 GM in Premix Bag 1 BAG IVPB PRN (00:01)
[2018-03-06] MEDS ORDERED: Magnesium Oxide 400 MG TAB PO PRN ×2 (00:01)
[2018-03-06] MEDS ORDERED: Potassium Chloride 40 MEQ in Premix Bag 1 BAG IVPB PRN (00:01)
[2018-03-06] MEDS ORDERED: Potassium Chloride 20 MEQ TAB PO PRN (00:01)
[2018-03-06] MEDS ORDERED: Potassium Chloride 40 MEQ in Sodium Chloride 0.9% 250 ML 250 ML IVPB PRN (00:01)
[2018-03-06] MEDS ORDERED: Potassium Phosphate 12 MMOL in Sodium Chloride 0.9% 250 ML 250 ML IV PRN (00:01)
[2018-03-06 01:00] LABS: Hemoglobin 7.8 g/dL (12.0-16.0); Platelet Count 354 thou/uL (130-400)
[2018-03-06 01:08] LABS: Glucose 951 mg/dL (70-105)
[2018-03-06 01:29] LABS: Anion Gap 22 mmol/L (10-20); BUN (Urea Nitrogen) 35 mg/dL (9.8-20.1); Calc. Creatinine Clearance 0 mL/min (70-130); Carbon Dioxide 9 mmol/L (22-29); Chloride 99 mmol/L (98-107); Estimated GFR-MDRD 20; Glucose 916 mg/dL (70-105); Potassium 4.1 mmol/L (3.5-5.1); Sodium 126 mmol/L (136-145)
[2018-03-06] MEDS: Heparin 25,000 units/D5W 500 ML IVPB SCH ×2 (01:30→19:09)
--- NOTE | 2018-03-06 01:31 | CON ---
DATE OF CONSULTATION: 03/05/2018 CARDIOLOGY CONSULTATION REASON FOR CONSULTATION: Increased troponin level, myocardial infarction, probably recent. PRIMARY COMMUNITY SERVICE OFFICER: Concha Robledo M.D. HISTORY OF PRESENT ILLNESS: Ms. Kaba is a 52-year-old woman with the severe diabetes. She came to the emergency room due to shortness of breath today. The patient was found to be in diabetic ketoaci dosis and also was found to have an extremely high blood sugar as well as increased troponin. We hav e been consulted concerning that. The patient states she has been having chest pain at least all day today off and on at all day, much of the day yesterday. She has some history of chest pain in the past as well, but has intensified re cently. She recently apparently was at [facility]. The patient feels short of breath and has had some mild discomfort in her chest now, but had previously been worse. MEDICATIONS: Here, she has received cefepime, vancomycin. Sodium bicarbonate and intravenous hepari n. At home, she was also taking aspirin. She was taking Procardia. She was taking insulin. Medica tion and a recent discharge included atorvastatin, metoprolol, Procardia-XL 30 mg, Protonix, gabapent in, and insulin. PAST MEDICAL HISTORY: She has previously been seen by petroleum supply specialist here as followed by Dr. Roger bates, also seen Dr. Robledo in 04/2016. She did have increased troponin level associated with increased bl ood sugar at that time that was associated with diabetic ketoacidosis. ALLERGIES: CIPRO, HYDRALAZINE, NAPROXEN. SOCIAL HISTORY: Unfortunately, continues to smoke. She has been advised not to smoke. PHYSICAL EXAMINATION: GENERAL: This is an ill-appearing 52-year-old woman who looks older than her chronologic age. VITAL SIGNS: Her blood pressure is 110 systolic. Her pulse is 105 beats per minute. It is sinus on the monitor. NECK: Neck veins are normal. Carotid normal upstrokes. LUNGS: Clear anteriorly and laterally. CARDIAC: She is tachycardic for rest. I do not hear any murmur, rub or gallop. ABDOMEN: Soft, nontender, no hepatosplenomegaly. EXTREMITIES: Warm, dry, no clubbing or cyanosis. There is moderate peripheral edema. PERTINENT LABORATORY: Hemoglobin is 9.1. Her blood sugar was 1023. BNP 3597, troponin 20.8. Sodium 123, probably delusional. EKG reveals a sinus tachycardia. There are Q-waves in leads V3 and V4 with some ST elevation in the same leads. This is suspicious for a recent myocardial infarction. ASSESSMENT: 1. Diabetic ketoacidosis. 2. Increased troponin, suspect recent anterior or apical infarction. 3. Renal failure with a creatinine of 2.66. Previous creatinine is 1.3. PLAN: At this time: 1. Agree with insulin and fluid, may need diuretics as well. 2. Agree with intravenous heparin. 3. She is already on aspirin. We will continue that. 4. Echocardiogram tomorrow. 5. Probably need cardiac catheterization once the patient stabilizes. The patient is critically ill now, I would not proceed to invasive therapy at this point that was be very likely lead to endstage or at least advanced renal failure requiring dialysis. Prognosis is guarded at this point. Dr. Robledo will resume care tomorrow.
[2018-03-06 03:50] LABS: Anion Gap 19 mmol/L (10-20); BUN (Urea Nitrogen) 34 mg/dL (9.8-20.1); Calc. Creatinine Clearance 33 mL/min (70-130); Calcium 7.1 mg/dL (7.8-10.44); Carbon Dioxide 12 mmol/L (22-29); Chloride 100 mmol/L (98-107); Estimated GFR-MDRD 21; Glucose 727 mg/dL (70-105); Potassium 3.4 mmol/L (3.5-5.1); Sodium 128 mmol/L (136-145)
[2018-03-06 05:31] LABS: Lactic Acid 3.8 mmol/L (0.5-2.2)
[2018-03-06 05:34] LABS: Glucose 718 mg/dL (70-105)
[2018-03-06 05:37] LABS: #Basophils 0.1 thou/uL (0.0-0.2); #Lymphocytes 1.7 thou/uL (1.20-3.40); #Monocytes 0.7 thou/uL (0.11-0.59); #Neutrophils 8.1 thou/uL (1.40-6.50); %Basophils 0.7 % (0.0-1.0); %Eosinophils 0.5 % (0.0-10.0); %Lymphocytes 15.9 % (21.0-51.0); %Monocytes 6.7 % (0.0-10.0); %Neutrophils 76.3 % (42.0-75.0); Hemoglobin 8.1 g/dL (12.0-16.0); Mean Corpuscular HGB CONC 32.8 g/dL (32.0-36.0); Mean Corpuscular Hemoglobin 29.9 pg (27.0-31.0); Mean Corpuscular Volume 91.2 fL (78.0-98.0); Mean Platelet Volume 8.9 fL (7.4-10.4); Platelet Count 389 thou/uL (130-400); RBC Distribution Width 14.2 % (11.5-14.5); White Blood Cell (WBC) Count 10.6 thou/uL (4.8-10.8)
[2018-03-06 05:39] LABS: ALT (SGPT) 25 U/L (8-55); AST (SGOT) 136 U/L (5-34); Albumin 2.4 g/dL (3.5-5.0); Alkaline Phosphatase 172 U/L (40-150); Anion Gap 19 mmol/L (10-20); BUN (Urea Nitrogen) 34 mg/dL (9.8-20.1); BUN/Creatinine Ratio 14.23; Bilirubin, Total 0.2 mg/dL (0.2-1.2); Calc. Creatinine Clearance 33 mL/min (70-130); Calcium 7.2 mg/dL (7.8-10.44); Carbon Dioxide 11 mmol/L (22-29); Chloride 102 mmol/L (98-107); Estimated GFR-MDRD 21; Globulin 2.9 g/dL (2.4-3.5); Phosphorus 5.1 mg/dL (2.3-4.7); Potassium 3.5 mmol/L (3.5-5.1); Protein, Total 5.3 g/dL (6.0-8.3); Sodium 128 mmol/L (136-145)
[2018-03-06 05:52] LABS: Glucose 711 mg/dL (70-105)
--- NOTE | 2018-03-06 06:37 | HP ---
CHIEF COMPLAINT: Chest pain and shortness of breath. HISTORIAN: The patient. HISTORY OF PRESENT ILLNESS: This is a 51-year-old female with a past medical history of diabetes mellitus type 1, hypertension, history of DKA, hypertension uncontrolled, presenting with chest pain and shortness of breath, which started earlier this week. The chest pain was achy like of symptoms and the patient stated that it was associated with shortness of breath. Pain radiated to the back and was substernal in location. The patient stated that she thought the pain was going to subside after it came on. However, in the past couple of days , the pain became very intense, therefore she decided to come to the hospital to be evaluated. The patient stated that the reason why she stayed so long before coming to the hospital was because she thought it was bronchitis. The patient states that she was recently seen 2 weeks ago in the hospital for a right-sided stroke which caused left-sided residual deficits. REVIEW OF SYSTEMS: Positive for weakness, shortness of breath, chest discomfort , otherwise as documented in the HPI. All other systems were reviewed and are negative. PAST MEDICAL HISTORY: Stroke with left-sided residual, diabetes mellitus, hypertension, hyperglycemia, SD on 02/2016, renal failure, diabetes, neuropathy , hyperlipidemia. PAST SURGICAL HISTORY: Hysterectomy, , gallbladder removal. FAMILY HISTORY: Significant for diabetes, stroke, heart issues. SOCIAL HISTORY: Negative for alcohol, negative for illicit drug use; however, the patient states that she smokes tobacco and she smokes half a pack a day. ALLERGIES: CAMPHOR, CIPROFLOXACIN, HYDRALAZINE, NAPROXEN. CURRENT MEDICATIONS: Atorvastatin 40, gabapentin 400, Levemir 20 units, aspirin 81 mg a day, pantoprazole 40 mg a day. PHYSICAL EXAMINATION: VITAL SIGNS: Blood pressure 121/82, pulse 101, respiratory rate 20, temperature 97.5, O2 sat 100 on room air. GENERAL: The patient appears to be in distress, but nontoxic and alert, oriented x3, able to speak in full sentences. HEENT: Normocephalic, atraumatic. Pupils are equally round and reactive to light. Extraocular movements are intact. No scleral icterus. The patient has left-sided facial droop. NECK: Supple. Trachea is midline. No JVD. LUNGS: Clear to auscultation bilaterally. The patient is tachypneic, has a dry cough. CARDIOVASCULAR: Positive S1, S2. Patient is tachycardic. ABDOMEN: Nondistended, nontender, positive bowel sounds, palpable mass, no rigidity, no guarding, no rebound. EXTREMITIES: Upper extremity, 5/5 upper extremity strength, 5/5 lower extremity strength. Good pulses bilaterally. NEUROLOGIC: The patient has focal neurologic deficits noted at the left facial , mild weakness at left upper extremity; however, the patient is able to move all extremities. SKIN: The patient has a left central line placed. Warm, dry and intact. PSYCHIATRIC: The patient is alert, oriented x3, not in acute distress. Chest x-ray shows bibasilar pneumonia. ED COURSE: The patient was given 2 mg of cefepime, insulin, Ativan 1 mg, sodium bicarbonate, heparin, aspirin. LABORATORY DATA: WBC is 11.4, hemoglobin is 9.1, hematocrit is 29.2, RDW is 14.6. PT is 14.7, INR is 1.1, PTT 28.6. PH is 7.184, pCO2 of 14, pO2 of 72. Sodium is 123, potassium is 4.3, carbon dioxide is less than 8, anion gap cannot be calculated, BUN is 32, creatinine is 2.66, glucose 1023. Serum osmol is 336, lactic acid of 3.9, calcium of 7.7, AST 73, ALT 21, alkaline phosphatase is 218. Creatinine kinase is 728. BNP is 3597. Beta hydroxybutyrate is 6.81. ASSESSMENT AND PLAN: This is a 52-year-old female with multiple comorbidities being admitted for: 1. Hyperglycemic hyperosmolar syndrome. At this point, patient's glucose is above 1000. The patient has been started on IV fluids. We will add bicarbonate to the IV fluids. Insulin drip. We will admit the patient to the ICU. Central line has been placed. We will monitor the patient's blood glucose closely. We will continue current management. 2. [id number] elevation myocardial infarction. The patient has both troponins at 20. Cardiology has been consulted. We will follow up with Cardiology regarding any further recommendation. At this point, the patient is on aspirin, Plavix, started heparin. 3. Hypoosmolar hyponatremia likely due to hyperglycemia. We will correct patient's blood glucose with IV fluids and insulin drip. We will continue insulin drip and with glucose correction sodium is going to be corrected. 4. Metabolic acidosis. The patient's bicarbonate was below 8. We have added bicarbonate to the patient's fluid. We will switch the patient to D5 half after checking the patient's glucose and the patient's blood glucose falls below 250. We will also check to see the patient's pH, if the patient's pH goes above 7.2 we will discontinue bicarbonate and we will continue current management. 5. Bibasilar pneumonia. We will continue patient on cefepime antibiotics. Currently Pulmonary is on consult. We will follow up with their recommendation. 6. Rhabdomyolysis. We will continue patient on IV fluids and current management. 7. Congestive heart failure, most likely combination of systolic and diastolic failure. We have ordered an echo. We have consulted Cardiology, we will follow up with their recommendation. 8. Acute on chronic kidney injury. I have consulted Nephrology. The patient is currently on IV fluids. The patient's elevated creatinine is most likely due to prerenal in etiology, likely from dehydration. We will continue to manage the patient. 9. Tobacco use. We will continue the patient on nicotine patch as needed. 10. Hyperlipidemia. We will continue patient on her home medication once the patient is able tolerate p.o. At this point, the patient is n.p.o. 11. History of cerebrovascular accident with left-sided residual, at this point , stable. We will continue to monitor the patient. 12. Deep venous thrombosis and gastrointestinal prophylaxis. MTDD
[2018-03-06 06:58] LABS: Glucose 551 mg/dL (70-105)
[2018-03-06 08:10] LABS: Anion Gap 14 mmol/L (10-20); BUN (Urea Nitrogen) 36 mg/dL (9.8-20.1); Calc. Creatinine Clearance 34 mL/min (70-130); Calcium 7.1 mg/dL (7.8-10.44); Carbon Dioxide 17 mmol/L (22-29); Chloride 103 mmol/L (98-107); Estimated GFR-MDRD 22; Glucose 490 mg/dL (70-105); Potassium 3.3 mmol/L (3.5-5.1); Sodium 131 mmol/L (136-145)
[2018-03-06] MEDS ORDERED: Sodium Chloride 0.9% 1,000 ML IV SCH (08:15)
[2018-03-06] MEDS: Cefepime 2 GM in Sodium Chloride 0.9% 100 ML IVPB SCH ×2 (08:37→21:21)
[2018-03-06] MEDS: Famotidine/PF 20 mg/2ml Vial SLOW IVP SCH (08:40)
--- NOTE | 2018-03-06 09:30 | RAD ---
FRONTAL VIEW CHEST: COMPARISON: 03/05/18. INDICATION: Pneumonia. FINDINGS: There is bibasilar pleural and parenchymal density. The cardiac silhouette and pulmonary vasculature are enlarged. There is a right-side internal jugular vein catheter remaining in place. No pneumoth orax. IMPRESSION: 1. Bibasilar pleural and parenchymal opacities indicating pleural fluid with adjacent atelectasis an d/or pneumonia. 2. Evidence of fluid overload which may represent congestive heart failure in the correct clinical c ontest. Recommend continued imaging followup. POS: THAD
--- NOTE | 2018-03-06 10:03 | CON ---
DATE OF CONSULTATION: 03/06/2018 REASON FOR CONSULTATION: ICU management. HISTORY OF PRESENT ILLNESS: This patient is a 52-year-old female who has been feeling ill for the several days. She came to the hospital last night with chest pain and shortness of breath. She w as found to have severely elevated troponin and severely elevated blood sugar. She was seen by Hanny briggs, but not deemed a candidate for the labor relations worker secondary to her severity of illness and renal dys function. She was treated with an insulin drip. She was also given normal saline with bicarbonate o vernight. She says she feels a little better this morning and I was able to remove her BiPAP and she was able to give me a history without much limitation. PAST MEDICAL HISTORY: 1. Recent transient ischemic attack with left-sided facial weakness. 2. Diabetes mellitus type 1 from her late 20s. 3. Hypertension. 4. Coronary artery disease. 5. Myocardial infarction. 6. Chronic renal dysfunction. 7. Diabetic neuropathy. 8. Gastroparesis. 9. Hyperlipidemia. PAST SURGICAL HISTORY: 1. She has had a hysterectomy. 2. . 3. Cholecystectomy. FAMILY MEDICAL HISTORY: Remarkable for diabetes, stroke. SOCIAL HISTORY: The patient smokes less than half pack per day. Does not consume alcohol, does not use illicit drugs. She lives at home with her and sometimes her daughter comes over. She is not independent in her activities of daily living. She has very compromised eyesight. She does not drive. She needs assistance in and out of the bathtub. ALLERGIES: CIPROFLOXACIN causes facial swelling. She is also allergic to CAMPHOR, HYDRALAZINE and N APROXEN. MEDICATIONS PRIOR TO ADMISSION: Atorvastatin 40 mg daily, gabapentin 400 mg daily, Levemir 20 units in the morning, aspirin 81 mg daily, pantoprazole 40 mg daily. REVIEW OF SYSTEMS: The patient has had no fever or chills. She has had chest pain. She has had parish rtness of breath. She has had no hemoptysis, no hematochezia, hematuria, or dysuria. PHYSICAL EXAMINATION: VITAL SIGNS: Temperature 98.6, pulse 97, blood pressure 103/69, O2 sat is 92%. HEENT: Pupils react. Sclerae icteric. Oropharynx clear. She has some periorbital edema. NECK: No JVD. LUNGS: Inspiratory crackles both bases, dullness to percussion at both bases posteriorly. CARDIOVASCULAR: S1, S2 regular. No murmur or gallop. ABDOMEN: Soft, nontender, nondistended. No hepatosplenomegaly. EXTREMITIES: No clubbing, cyanosis. She has generalized edema throughout. LAB AND X-RAY FINDINGS: Sodium 128 corrects to 138 from the glucose, potassium 3.5, chloride 102, CO 2 11, BUN 34, creatinine 2.4, glucose 711. Lactate 3.8. Troponin 20. TSH 2.4. White blood cell co unt 10.6, hemoglobin 8.1, hematocrit 24.6, platelet count 389. Chest x-ray shows pulmonary vascular congestion. She has a right IJ central line. She has bilateral effusions. ASSESSMENT: 1. Myocardial infarction. 2. Diabetic ketoacidosis/hyperosmolar state. 3. Type 1 diabetes mellitus with poor control. 4. Peripheral neuropathy. 5. History of gastroparesis. 6. Congestive heart failure. PLAN: 1. I will go ahead take the patient off the normal saline with bicarbonate as that is a hypertonic s olution and would be contraindicated given her total body fluid overload. 2. Because of her fluid overload. We will have to treat her primarily with insulin, IV fluids will be given in small amounts. Once her blood sugar gets below 200 and add dextrose to IV fluids. 3. Monitor her glucose and her chemistry. 4. Can probably hold off BiPAP for the time being. 5. Can probably stop antibiotics after 2 days if cultures are negative. 6. Continue heparin drip at the discretion of the universal grinder tool. 7. Pepcid for GI prophylaxis. 8. The heparin should serve for DVT prophylaxis. The above encompassed 45 minutes critical care time.
[2018-03-06 11:15] LABS: Amphetamine Not Detected (NotDetected); Barbiturates Screen Not Detected (NotDetected); Benzodiazepine Screen Not Detected (NotDetected); Cocaine Metabolite Screen Not Detected (NotDetected); Medtox Control Line Valid? VALID (VALID); Medtox Reader # READER 1; Methadone Not Detected (NotDetected); Methamphetamine Not Detected (NotDetected); Opiate Screen Not Detected (NotDetected); Oxycodone Screen Not Detected (NotDetected); Phencyclidine (PCP) Not Detected (NotDetected); THC/Cannabinoid Screen Not Detected (NotDetected); Tricyclic Screen Not Detected (NotDetected)
[2018-03-06] MEDS ORDERED: Non-Formulary Item 1 EACH (Insulin Detemir 100 Units/Ml [Levemir] 40 UNITS) SQ SCH (12:00)
[2018-03-06] MEDS ORDERED: Dextrose 5 %-0.45 % NaCl 1,000 ML IV SCH (12:00)
[2018-03-06] MEDS ORDERED: Dextrose 5% in Water 1,000 ML IV PRN (12:00)
[2018-03-06] MEDS ORDERED: Insulin Glargine 40 UNITS in Pre-Filled Syringe 1 EACH SC SCH (14:00)
[2018-03-06 14:06] LABS: Anion Gap 16 mmol/L (10-20); BUN (Urea Nitrogen) 34 mg/dL (9.8-20.1); Calc. Creatinine Clearance 36 mL/min (70-130); Calcium 7.2 mg/dL (7.8-10.44); Carbon Dioxide 14 mmol/L (22-29); Chloride 107 mmol/L (98-107); Estimated GFR-MDRD 24; Glucose 177 mg/dL (70-105); Potassium 3.9 mmol/L (3.5-5.1); Sodium 133 mmol/L (136-145)
[2018-03-06] MEDS: Heparin 10,000 UNITS/ 10 ML VIAL SLOW IVP SCH (15:14)
--- NOTE | 2018-03-06 15:16 | PDOC.PN ---
- Subjective Encounter Start Date: 03/06/18 Encounter Start Time: 11:00 Patient Is seen today, alert and oriented, She is in DKA and had a IA. - Objective Resuscitation Status: Resuscitation Status FULL:Full Resuscitation MAR Reviewed: Yes Vital Signs & Weight: Vital Signs (12 hours) Temp Pulse Resp Pulse Ox 03/06/18 12:00 99 F 03/06/18 08:00 99 F 96 16 96 03/06/18 07:56 100 03/06/18 04:00 98.6 F 16 Weight Weight 169 lb 1.513 oz Most Recent Monitor Data Heart Rate from ECG 96 NIBP 86/57 NIBP BP-Mean 64 Respiration from ECG 19 SpO2 94 I&O: 03/05/18 03/06/18 03/07/18 06:59 06:59 06:59 Intake Total 924.7 289 Output Total 980 285 Balance -55.3 4 Result Diagrams: 03/06/18 04:31 03/06/18 13:40 Additional Labs: Accuchecks 03/06/18 03/06/18 03/06/18 13:42 12:40 11:29 POC Glucose 187 H 170 H 216 H 03/06/18 03/06/18 03/06/18 10:31 09:49 08:00 POC Glucose 241 H 279 H 379 H 03/05/18 03/05/18 23:49 17:49 POC Glucose Greater than 550 H* Greater than 550 H* Radiology Reviewed by me: Yes Phys Exam - Physical Examination HEENT: PERRLA, moist MMs Neck: no nodes, no JVD Respiratory: no wheezing, no rales Cardiovascular: RRR, no significant murmur Gastrointestinal: soft, non-tender Neurological: non-focal, normal sensation Lymphatic: no nodes Psychiatric: normal affect, A&O x 3 Skin: no rash, normal turgor Dx/Plan (1) Diabetic ketoacidosis Code(s): E11.10 - TYPE 2 DIABETES MELLITUS WITH KETOACIDOSIS WITHOUT COMA Status: Resolved Comment: Anion Gap Closed, Will start pts home Dose lantus and Stop Insulin drip in 2hr and do ac hs, with Moderate sliding scale. (2) Acute systolic CHF (congestive heart failure) Code(s): I50.21 - ACUTE SYSTOLIC (CONGESTIVE) HEART FAILURE Status: Acute Comment: PT has Low EF 20-25 %, Has Low BP, BB and ACEI on hold, Avoide Fluid overload. Csrdilogy consulted. (3) Acute renal failure (ARF) Status: Acute Comment: improving (4) Demand ischemia Code(s): I24.8 - OTHER FORMS OF ACUTE ISCHEMIC HEART DISEASE Status: Acute Comment: Likely Massive IA, but conservative management. - Plan cont current plan of care, PT/OT, health care social worker, incentive spirometry, out of bed/ambulate * . Review of Systems - Review of Systems Constitutional: negative: fever, chills, sweats, weakness, malaise, other Eyes: negative: Pain, Vision Change, Conjunctivae Inflammation, Eyelid Inflammation, Redness, Other ENT: negative: Ear Pain, Ear Discharge, Nose Pain, Nose Discharge, Nose Congestion, Mouth Pain, Mouth Swelling, Throat Pain, Throat Swelling, Other Respiratory: negative: Cough, Dry, Shortness of Breath, Hemoptysis, SOB with Excertion, Pleuritic Pain, Sputum, Wheezing Cardiovascular: chest pain, light headedness Gastrointestinal: negative: Nausea, Vomiting, Abdominal Pain, Diarrhea, Constipation, Melena, Hematochezia, Other Genitourinary: negative: Dysuria, Frequency, Incontinence, Hematuria, Retention , Other Musculoskeletal: negative: Neck Pain, Shoulder Pain, Arm Pain, Back Pain, Hand Pain, Leg Pain, Foot Pain, Other Skin: negative: Rash, Lesions, Jan, Bruising, Other - Medications/Allergies Allergies/Adverse Reactions: Allergies Allergy/AdvReac Type Severity Reaction Status Date / Time camphor Allergy Verified 12/03/17 22:05 ciprofloxacin [From Cipro] Allergy Verified 12/03/17 22:05 hydralazine Allergy Verified 07/17/17 14:46 naproxen [From Naprosyn] Allergy Verified 07/17/17 14:46 Medications: Current Medications Acetaminophen (Tylenol) 650 mg PO Q4H PRN PRN Reason: Headache/Fever or Pain Acetaminophen (Tylenol) 650 mg MT Q4H PRN PRN Reason: Headache/Fever or Pain Aspirin (Ecotrin) 81 mg PO DAILY SANDI Atorvastatin Calcium (Lipitor) 40 mg PO DAILY SANDI Bisacodyl (Dulcolax) 10 mg PO DAILYPRN PRN PRN Reason: Constipation Dextrose/Water (Dextrose 50%) 25 gm SLOW IVP PRN PRN PRN Reason: Hypoglycemia Famotidine (Pepcid) 20 mg SLOW IVP DAILY SANDI Last Admin: 03/06/18 08:40 Dose: 20 mg Glucagon (Glucagon) 1 mg IM PRN PRN PRN Reason: Hypoglycemia Heparin Sodium (Porcine) (Heparin 1,000 Units/Ml (10 Ml)) 0 units SLOW IVP ASDIR SANDI; Protocol Heparin Sodium/Dextrose (Heparin 25,000 Units/D5w 500 Ml) 500 mls @ 0 mls/hr IVPB INF SANDI; Protocol Last Admin: 03/06/18 01:30 Dose: 500 mls Insulin Human Regular 100 (units/ Sodium Chloride) 101 mls @ 0 mls/hr IVPB INF SANDI; Protocol Stop: 03/06/18 21:00 Last Admin: 03/06/18 00:30 Dose: 101 mls Potassium Chloride 40 meq/ (Sodium Chloride) 270 mls @ 135 mls/hr IVPB ASDIR PRN PRN Reason: FOR SERUM K+ 2.5 - 3.5 Potassium Chloride 40 meq/ (Device) 100 mls @ 50 mls/hr IVPB ASDIR PRN PRN Reason: FOR SERUM K+ 2.5 - 3.5 Last Admin: 03/06/18 08:26 Dose: 100 mls Magnesium Sulfate 1 gm/ Sodium (Chloride) 102 mls @ 102 mls/hr IV PRN PRN PRN Reason: MAG LEVEL 1.4 - 2.0 Magnesium Sulfate 2 gm/ Device 100 mls @ 100 mls/hr IVPB ASDIR PRN PRN Reason: MAGNESIUM < 1.4 Potassium Phosphate 9 mmol/ (Sodium Chloride) 103 mls @ 25.75 mls/hr IVPB ASDIR PRN PRN Reason: Phosphate 1.0-1.8 Potassium Phosphate 12 mmol/ (Sodium Chloride) 254 mls @ 63.5 mls/hr IV ASDIR PRN PRN Reason: Serum phosphate 0.5-0.9 Potassium Phosphate 15 mmol/ (Sodium Chloride) 255 mls @ 63.75 mls/hr IV ASDIR PRN PRN Reason: Serum Phos < 0.5 Cefepime HCl 2 gm/ Sodium (Chloride) 100 mls @ 200 mls/hr IVPB Q12HR SANDI Last Admin: 03/06/18 08:37 Dose: 100 mls Dextrose/Sodium Chloride (D5 1/2 Ns) 1,000 mls @ 70 mls/hr IV .[id number] [facility] Last Admin: 03/06/18 10:40 Dose: 1,000 mls Dextrose/Water (D5w) 1,000 mls @ 0 mls/hr IV .Q0M PRN PRN Reason: Hypoglycemia Insulin Glargine 40 units/ (Miscellaneous Medication) 0.4 mls @ 0 mls/hr SC QAM SANDI Insulin Glargine 40 units/ (Miscellaneous Medication) 0.4 mls @ 0 mls/hr SC NOW SANDI Stop: 03/06/18 16:00 Last Admin: 03/06/18 14:05 Dose: 0.4 mls Insulin Human Lispro (Humalog) 0 units SC .MODERATE SLIDING SC PRN PRN Reason: Moderate Correctional Scale Insulin Human Lispro (Humalog) 0 units SC .BEDTIME SLIDING SC PRN PRN Reason: Bedtime Correctional Scale Lactulose (Lactulose) 20 gm PO DAILYPRN PRN PRN Reason: Constipation Magnesium Oxide (Magnesium Oxide) 400 mg PO BIDPRN PRN PRN Reason: FOR SERUM MAG 1.4 - 2.0 Magnesium Oxide (Magnesium Oxide) 800 mg PO PRN PRN PRN Reason: FOR SERUM MAG < 1.4 Miscellaneous Medication (Phos-Nak) 1 pkt PO TIDPRN PRN PRN Reason: FOR PHOS LEVEL 1.0 - 1.8 Miscellaneous Medication (Phos-Nak) 2 pkt PO TIDPRN PRN PRN Reason: FOR PHOS LEVEL 0.5 - 1.0 Miscellaneous Medication (Pharmacy To Dose) 0 each IVPB PRN PRN PRN Reason: CEFEPIME Pharmacy to Dose Ccu Electrolyte (Replacement Protocol) 0 each FS PRN PRN PRN Reason: FOR ELECTROLYTE REPLACEMENT Ondansetron HCl (Zofran Odt) 4 mg PO Q6H PRN PRN Reason: Nausea/Vomiting Ondansetron HCl (Zofran) 4 mg IVP Q6H PRN PRN Reason: Nausea/Vomiting Last Admin: 03/06/18 12:36 Dose: 4 mg Potassium Chloride (K-Dur) 40 meq PO ASDIR PRN PRN Reason: FOR SERUM K+ 2.5 - 3.5 Potassium Chloride (Klor-Con) 40 meq PER TUBE ASDIR PRN PRN Reason: FOR SERUM K+ 2.5-3.5 Sodium Biphosphate/Sodium Phosphate (Fleet Enema) 133 ml MT ONE PRN PRN Reason: Constipation Stop: 03/06/18 23:24
--- NOTE | 2018-03-06 15:42 | CON ---
DATE OF CONSULTATION: 03/06/2018 NEPHROLOGY CONSULTATION REASON FOR CONSULTATION: Elevated creatinine. HISTORY OF PRESENT ILLNESS: This is a very pleasant 52-year-old female who presented to the hospital early this morning for chest pain and shortness of breath. The patient also had severe metabolic ac idosis. Her creatinine baseline has increased from 1.3 in November to 2.6 and 2.3 today. The patient de nies headache, numbness, tingling or weakness. Denies any nausea, vomiting, or chest pain. PAST MEDICAL HISTORY: Significant for hypertension, BKA, history of acute kidney injury, histo ry of stroke with left-sided weakness, diabetes mellitus, hyperlipidemia, [place], neuropathy, hysterectom y, , gallbladder surgery. FAMILY HISTORY: Negative for ESRD. SOCIOECONOMIC HISTORY: No alcohol or drug use. FAMILY HISTORY: Negative . ALLERGIES: Reviewed. HOME MEDICATIONS: List reviewed. REVIEW OF SYSTEMS: A 15-point review of systems was performed and was negative except for positives noted above. GENERAL: Weakness- HEAD: Headache- NECK: No swelling or lumps. NOSE: No epistaxis or discharge. EYES: No diplopia or pain. RESPIRATORY: Dyspnea- CARDIOVASCULAR: Chest pain- GASTROINTESTINAL: Nausea- /PLASTICS SCIENTIST: Hematuria- MUSCULOSKELETAL: No joint pain. NEUROPSYCHIATIC SYSTEMS: No suicidal ideation. No ideation. SKIN: Denies any rash or ulcer. CONSTITUTIONAL: No fever or chills. PHYSICAL EXAMINATION: GENERAL APPEARANCE: Patient is awake, alert. VITAL SIGNS: Afebrile, pulse 97, breathing at 16, blood pressure 98/65. GENERAL APPEARANCE AND MENTAL STATUS: Fair. HEAD/NECK: Normocephalic. Atraumatic. EYES: EOMI. No deformity. EARS: Clear. No ulcers. NOSE: Intact. No lesions. MOUTH: Clear. No discharge. THROAT: Clear. No exudate. LUNGS: Clear. No crackles. CARDIAC: S1, S2. No rub. ABDOMEN: Benign. BS+. GENITALIA/RECTUM: Loo absent. BACK/EXTREMITIES: Edema 0+ Ulcer- NEUROLOGICAL: Alert and motor intact. SKIN: Rash- Bruise- LYMPHATICS: Edema- Ulcer- LABORATORY DATA: Show creatinine 2.3. ASSESSMENT AND RECOMMENDATIONS: 1. Acute kidney injury with chronic kidney disease, most likely decreased effective arterial blood v olume. Continue hydration. 2. Hypertension, stable. 3. Anemia, stable. 4. Medications based on GFR are appropriate. No indication for dialysis. 5. Metabolic acidosis, with bicarbonate replacement.
--- NOTE | 2018-03-06 16:10 | EKG ---
Test Reason : Blood Pressure : / mmHG Vent. Rate : 099 BPM Atrial Rate : 099 BPM P-R Int : 140 ms QRS Dur : 076 ms QT Int : 360 ms P-R-T Axes : 066 027 092 degrees QTc Int : 462 ms Normal sinus rhythm Low voltage QRS Anteroseptal infarct (cited on or before 05-MAR-2018) Nonspecific ST-T changes Abnormal ECG When compared with ECG of 05-MAR-2018 19:01, (Unconfirmed) T wave inversion no longer evident in Anterior leads Nonspecific T wave abnormality, worse in Lateral leads QT has shortened Confirmed by DR. Fareed IQBAL ([id number]) on 03/06/2018 4:10:11 PM Referred By: MARK Confirmed By:DR. Fareed IQBAL
[2018-03-06] MEDS: Dextrose 50% Abboject 50 ML SYRINGE SLOW IVP PRN (22:35)
[2018-03-07] MEDS: Dextrose 50% Abboject 50 ML SYRINGE SLOW IVP PRN ×2 (00:27→12:26)
[2018-03-07 03:47] LABS: #Basophils 0.1 thou/uL (0.0-0.2); #Eosinphils 0.1 thou/uL (0.0-0.7); #Monocytes 1.5 thou/uL (0.11-0.59); %Basophils 0.6 % (0.0-1.0); %Eosinophils 0.6 % (0.0-10.0); %Lymphocytes 13.3 % (21.0-51.0); %Monocytes 10.4 % (0.0-10.0); Hemoglobin 8.9 g/dL (12.0-16.0); Mean Corpuscular HGB CONC 32.8 g/dL (32.0-36.0); Mean Corpuscular Hemoglobin 29.7 pg (27.0-31.0); Mean Corpuscular Volume 90.8 fL (78.0-98.0); Mean Platelet Volume 8.8 fL (7.4-10.4); Platelet Count 406 thou/uL (130-400); RBC Distribution Width 14.8 % (11.5-14.5); Red Blood Cell (RBC) Count 2.98 mill/uL (4.20-5.40); White Blood Cell (WBC) Count 14.6 thou/uL (4.8-10.8)
[2018-03-07 03:58] LABS: Anion Gap 15 mmol/L (10-20); BUN (Urea Nitrogen) 33 mg/dL (9.8-20.1); Calc. Creatinine Clearance 37 mL/min (70-130); Calcium 7.7 mg/dL (7.8-10.44); Carbon Dioxide 16 mmol/L (22-29); Chloride 106 mmol/L (98-107); Estimated GFR-MDRD 24; Glucose 65 mg/dL (70-105); Potassium 3.8 mmol/L (3.5-5.1); Sodium 133 mmol/L (136-145)
[2018-03-07 04:01] LABS: Cardiac Risk 2.6 (Less than 4.5)
[2018-03-07] MEDS: Heparin 10,000 UNITS/ 10 ML VIAL SLOW IVP SCH (05:01)
[2018-03-07] MEDS ORDERED: Dextrose 50% Abboject 50 ML SYRINGE SLOW IVP PRN (08:17)
[2018-03-07] MEDS ORDERED: Dextrose 5% in Water 1,000 ML IV PRN (08:17)
[2018-03-07] MEDS: Aspirin 81 mg Enteric Coated Tablet PO SCH (08:47)
[2018-03-07] MEDS: Famotidine/PF 20 mg/2ml Vial SLOW IVP SCH (08:47)
[2018-03-07] MEDS: Atorvastatin Calcium 40 MG TAB PO SCH (08:47)
[2018-03-07] MEDS ORDERED: Insulin Glargine 40 UNITS in Pre-Filled Syringe 1 EACH SC SCH (09:00)
--- NOTE | 2018-03-07 09:37 | PRG ---
DATE OF SERVICE: 03/07/2018 SUBJECTIVE: The patient is doing well and had no acute complaints. We have had some problems with h ypoglycemia overnight. PHYSICAL EXAMINATION: VITAL SIGNS: Temperature is 98, pulse 103, blood pressure 134/90. A 24-hour intake 1587, output 850 . HEENT: Unremarkable. NECK: No adenopathy or JVD. LUNGS: Fairly clear anteriorly. CARDIOVASCULAR: S1, S2 regular, without murmur. ABDOMEN: Soft and nontender. EXTREMITIES: No edema. LABORATORY DATA: Sodium 133, potassium 3.8, chloride 106, CO2 16, anion gap approximately 11, BUN 33 , creatinine 2.1, glucose 65. White blood cell count 14.6, hematocrit 27, platelet count 406. Last troponin level was 162. ASSESSMENT: 1. Myocardial infarction. 2. Severely depressed ejection fraction with left ventricular dysfunction. 3. Diabetic ketoacidosis with the new development of hypoglycemia. 4. Chronic renal insufficiency. PLAN: 1. We will hold the Lantus for the time being, because of the hypoglycemia. This may need to be res tarted later tonight. 2. The patient says she has had adverse reactions to Humalog insulin in the past, so I will switch h er to regular insulin which she takes at home. 3. Continue myocardial infarction management including the heparin drip that is being monitored by [facility]. 4. Slowly increase activity as tolerated. 5. Stop antibiotics since there is not a clear source of infection in this patient.
[2018-03-07] MEDS: Acetaminophen 325 MG TAB PO PRN (09:58)
--- NOTE | 2018-03-07 10:51 | PDOC.CTH ---
Cardiology Progress Note - Subjective Pt. seen and eval. c/o only of left neck and shoulder pain. Awake ,denies SOB or chest pain. - Objective Vital Signs Temp Pulse Resp Pulse Ox 03/07/18 08:00 98.5 F 110 H 22 H 96 03/07/18 03:00 98 F 03/06/18 23:00 98.2 F Weight 169 lb 1.513 oz 03/06/18 03/07/18 03/08/18 06:59 06:59 06:59 Intake Total 924.7 1589.7 250 Output Total 980 850 360 Balance -55.3 739.7 -110 - Physical Examination General/Neuro: alert & oriented x3 Neck: carotid US brisk Lungs: unlabored respirations Heart: RRR Abdomen: NT/ND Extremities: other: (2+ VIRI) - Labs Result Diagrams: 03/07/18 03:26 03/07/18 03:30 Troponin/CKMB CK-MB (CK-2) 28.7 ng/mL (0-6.6) H* 03/05/18 18:07 Troponin I 162.370 ng/mL (< 0.028) H* 03/06/18 07:44 - Assessment/Plan 1. S/P Anterior CT. Pt will need a cath next week when stable. 2. Acute renal isufficiency- inproved. Follow.Nephrology following. 3. DM, DKA_ per primary service. Pt. poorly controlled. Noncompliant likely at home. 4. Severe CMY,ischemic. She will need a cath and likely a Life-Vest on d/c. She will need to be compliant with F/U. Review of Systems - Review of Systems Constitutional: reports: see HPI Respiratory: reports: no symptoms reported Cardiac (ROS): reports: no symptoms reported ABD/GI: reports: no symptoms reported Musculoskeletal: reports: joint pain Neurological: reports: no symptoms reported
[2018-03-07] MEDS ORDERED: Cyclobenzaprine 10 MG TAB PO SCH (14:00)
[2018-03-07] MEDS: Heparin 25,000 units/D5W 500 ML IVPB SCH (14:29)
--- NOTE | 2018-03-07 14:36 | PRG ---
DATE OF SERVICE: 03/07/2018 SUBJECTIVE: This is a 52-year-old female, who is being seen for acute kidney injury. The patient de nies any nausea, vomiting, or chest pain. PHYSICAL EXAMINATION: GENERAL: Patient is awake, alert. VITAL SIGNS: Afebrile, pulse 102, breathing 16, blood pressure 103/61. GENERAL APPEARANCE AND MENTAL STATUS: Fair. HEAD/NECK: Normocephalic. Atraumatic. EYES: EOMI. No deformity. EARS: Clear. No ulcers. NOSE: Intact. No lesions. MOUTH: Clear. No discharge. THROAT: Clear. No exudate. LUNGS: Clear. No crackles. CARDIAC: S1, S2. No rub. ABDOMEN: Benign. BS+. GENITALIA/RECTUM: Loo absent. BACK/EXTREMITIES: Edema 0+ Ulcer- NEUROLOGICAL: Alert and motor intact. SKIN: Rash- Bruise- LYMPHATICS: Edema- Ulcer- LABORATORY: Hemoglobin 8.9, creatinine is 2.1. ASSESSMENT AND RECOMMENDATIONS: 1. Acute kidney disease, stable. 2. Hypertension, stable. 3. Anemia, stable. 4. Metabolic acidosis, stable. No urgent indication for dialysis. We will follow renal function closely. Acute kidney injury due t o acute tubular necrosis.
--- NOTE | 2018-03-07 14:57 | PDOC.PN ---
- Subjective Encounter Start Date: 03/07/18 Encounter Start Time: 08:00 Patient is jony drowsy, no other elis nr snoted,. She has Some hypoglycemic events. No chest pain. - Objective Resuscitation Status: Resuscitation Status FULL:Full Resuscitation MAR Reviewed: Yes Vital Signs & Weight: Vital Signs (12 hours) Temp Pulse Resp Pulse Ox 03/07/18 12:00 97.7 F 03/07/18 11:00 97.7 F 03/07/18 08:00 98.5 F 110 H 22 H 96 03/07/18 03:00 98 F Weight Weight 169 lb 1.513 oz Most Recent Monitor Data Heart Rate from ECG 98 NIBP 113/73 NIBP BP-Mean 83 Respiration from ECG 17 SpO2 100 I&O: 03/06/18 03/07/18 03/08/18 06:59 06:59 06:59 Intake Total 924.7 1589.7 450 Output Total 980 850 550 Balance -55.3 739.7 -100 Result Diagrams: 03/07/18 03:26 03/07/18 03:30 Additional Labs: Accuchecks 03/07/18 03/07/18 03/07/18 12:22 11:34 09:08 POC Glucose 66 L 52 L* 71 03/07/18 03/07/18 03/07/18 07:37 06:04 02:14 POC Glucose 57 L* 67 L 67 L 03/07/18 03/06/18 03/06/18 00:24 23:08 18:11 POC Glucose 52 L* 78 122 H 03/06/18 14:58 POC Glucose 197 H Radiology Reviewed by me: Yes Phys Exam - Physical Examination HEENT: PERRLA, moist MMs Neck: no nodes, no JVD Respiratory: no wheezing, no rales Cardiovascular: RRR, no significant murmur Gastrointestinal: soft, non-tender Musculoskeletal: no edema, pulses present Neurological: non-focal, normal sensation Psychiatric: normal affect, A&O x 3 Skin: no rash, normal turgor Dx/Plan (1) Diabetic ketoacidosis Code(s): E11.10 - TYPE 2 DIABETES MELLITUS WITH KETOACIDOSIS WITHOUT COMA Status: Resolved Comment: resolved (2) Acute systolic CHF (congestive heart failure) Code(s): I50.21 - ACUTE SYSTOLIC (CONGESTIVE) HEART FAILURE Status: Acute Comment: PT has Low EF 20-25 %,improved now, Will cotninue with ACEI/ BB. Cardioogy following (3) Acute renal failure (ARF) Status: Acute Comment: improving (4) Demand ischemia Code(s): I24.8 - OTHER FORMS OF ACUTE ISCHEMIC HEART DISEASE Status: Acute Comment: Likely [place]ive [place], but conservative management. (5) Hypoglycemia Code(s): E16.2 - HYPOGLYCEMIA, UNSPECIFIED Status: Acute Comment: Hold lantus , contoinue on SSI. (6) Leucocytosis Code(s): D72.829 - ELEVATED WHITE BLOOD CELL COUNT, UNSPECIFIED Status: Acute Comment: No Source of infection noted. Will check UA. Will cotninue to Monitor. - Plan cont current plan of care, fitch catheter, continue antibiotics, PT/OT, respiratory therapy, incentive spirometry, out of bed/ambulate * . Review of Systems - Review of Systems Eyes: negative: Pain, Vision Change, Conjunctivae Inflammation, Eyelid Inflammation, Redness, Other ENT: negative: Ear Pain, Ear Discharge, Nose Pain, Nose Discharge, Nose Congestion, Mouth Pain, Mouth Swelling, Throat Pain, Throat Swelling, Other Respiratory: negative: Cough, Dry, Shortness of Breath, Hemoptysis, SOB with Excertion, Pleuritic Pain, Sputum, Wheezing Cardiovascular: negative: chest pain, palpitations, orthopnea, paroxysmal nocturnal dyspnea, edema, light headedness, other Gastrointestinal: negative: Nausea, Vomiting, Abdominal Pain, Diarrhea, Constipation, Melena, Hematochezia, Other Musculoskeletal: negative: Neck Pain, Shoulder Pain, Arm Pain, Back Pain, Hand Pain, Leg Pain, Foot Pain, Other Skin: negative: Rash, Lesions, Jan, Bruising, Other - Medications/Allergies Allergies/Adverse Reactions: Allergies Allergy/AdvReac Type Severity Reaction Status Date / Time camphor Allergy Verified 12/03/17 22:05 ciprofloxacin [From Cipro] Allergy Verified 12/03/17 22:05 hydralazine Allergy Verified 07/17/17 14:46 naproxen [From Naprosyn] Allergy Verified 07/17/17 14:46 Medications: Current Medications Acetaminophen (Tylenol) 650 mg PO Q4H PRN PRN Reason: Headache/Fever or Pain Last Admin: 03/07/18 09:58 Dose: 650 mg Acetaminophen (Tylenol) 650 mg [place] Q4H PRN PRN Reason: Headache/Fever or Pain Aspirin (Ecotrin) 81 mg PO DAILY [facility] Last Admin: 03/07/18 08:47 Dose: 81 mg Atorvastatin Calcium (Lipitor) 40 mg PO DAILY [facility] Last Admin: 03/07/18 08:47 Dose: 40 mg Bisacodyl (Dulcolax) 10 mg PO DAILYPRN PRN PRN Reason: Constipation Carvedilol (Coreg) 3.125 mg PO BID-[facility] Cyclobenzaprine HCl (Flexeril) 10 mg PO NOW [facility] Stop: 03/07/18 15:00 Last Admin: 03/07/18 14:29 Dose: 10 mg Dextrose/Water (Dextrose 50%) 25 gm SLOW IVP PRN PRN PRN Reason: Hypoglycemia Last Admin: 03/07/18 12:26 Dose: 25 gm Famotidine (Pepcid) 20 mg SLOW IVP DAILY [facility] Last Admin: 03/07/18 08:47 Dose: 20 mg Glucagon (Glucagon) 1 mg IM PRN PRN PRN Reason: Hypoglycemia Heparin Sodium (Porcine) (Heparin 1,000 Units/Ml (10 Ml)) 0 units SLOW IVP ASDIR [facility]; Protocol Last Admin: 03/07/18 05:01 Dose: 2,301 unit Heparin Sodium/Dextrose (Heparin 25,000 Units/D5w 500 Ml) 500 mls @ 0 mls/hr IVPB INF [facility]; Protocol Last Admin: 03/07/18 14:29 Dose: 500 mls Potassium Chloride 40 meq/ (Sodium Chloride) 270 mls @ 135 mls/hr IVPB ASDIR PRN PRN Reason: FOR SERUM K+ 2.5 - 3.5 Potassium Chloride 40 meq/ (Device) 100 mls @ 50 mls/hr IVPB ASDIR PRN PRN Reason: FOR SERUM K+ 2.5 - 3.5 Last Admin: 03/06/18 08:26 Dose: 100 mls Magnesium Sulfate 1 gm/ Sodium (Chloride) 102 mls @ 102 mls/hr IV PRN PRN PRN Reason: MAG LEVEL 1.4 - 2.0 Magnesium Sulfate 2 gm/ Device 100 mls @ 100 mls/hr IVPB ASDIR PRN PRN Reason: MAGNESIUM < 1.4 Potassium Phosphate 9 mmol/ (Sodium Chloride) 103 mls @ 25.75 mls/hr IVPB ASDIR PRN PRN Reason: Phosphate 1.0-1.8 Potassium Phosphate 12 mmol/ (Sodium Chloride) 254 mls @ 63.5 mls/hr IV ASDIR PRN PRN Reason: Serum phosphate 0.5-0.9 Potassium Phosphate 15 mmol/ (Sodium Chloride) 255 mls @ 63.75 mls/hr IV ASDIR PRN PRN Reason: Serum Phos < 0.5 Dextrose/Water (D5w) 1,000 mls @ 0 mls/hr IV .Q0M PRN PRN Reason: Hypoglycemia Insulin Human Regular (Humulin R) 0 units SC .AGGRESSIVE SLIDING PRN PRN Reason: Aggressive Sliding Scale Insulin Human Regular (Humulin R) 0 units SC .BEDTIME SLIDING SC PRN PRN Reason: Bedtime Correctional Scale Lactulose (Lactulose) 20 gm PO DAILYPRN PRN PRN Reason: Constipation Magnesium Oxide (Magnesium Oxide) 400 mg PO BIDPRN PRN PRN Reason: FOR SERUM MAG 1.4 - 2.0 Magnesium Oxide (Magnesium Oxide) 800 mg PO PRN PRN PRN Reason: FOR SERUM MAG < 1.4 Miscellaneous Medication (Phos-Nak) 1 pkt PO TIDPRN PRN PRN Reason: FOR PHOS LEVEL 1.0 - 1.8 Miscellaneous Medication (Phos-Nak) 2 pkt PO TIDPRN PRN PRN Reason: FOR PHOS LEVEL 0.5 - 1.0 Miscellaneous Medication (Pharmacy To Dose) 0 each IVPB PRN PRN PRN Reason: CEFEPIME Pharmacy to Dose Ccu Electrolyte (Replacement Protocol) 0 each FS PRN PRN PRN Reason: FOR ELECTROLYTE REPLACEMENT Ondansetron HCl (Zofran Odt) 4 mg PO Q6H PRN PRN Reason: Nausea/Vomiting Ondansetron HCl (Zofran) 4 mg IVP Q6H PRN PRN Reason: Nausea/Vomiting Last Admin: 03/06/18 12:36 Dose: 4 mg Potassium Chloride (K-Dur) 40 meq PO ASDIR PRN PRN Reason: FOR SERUM K+ 2.5 - 3.5 Potassium Chloride (Klor-Con) 40 meq PER TUBE ASDIR PRN PRN Reason: FOR SERUM K+ 2.5-3.5 Sodium Chloride (Flush - Normal Saline) 10 ml IVF Q12HR [facility] Sodium Chloride (Flush - Normal Saline) 10 ml IVF PRN PRN PRN Reason: Saline Flush
[2018-03-07 15:50] LABS: Bilirubin Negative (Negative); Blood, Urine Large (Negative); Clarity CLOUDY (Clear); Glucose, Urine (Dipstick) 100 mg/dL (Negative); Leukocyte Moderate (Negative); Nitrite Negative (Negative); Protein, Urine (Dipstick) 300 mg/dL (Neg-Trace); Specific Gravity, Urine 1.018 (1.002-1.036); Urobilinogen 0.2 mg/dL (0.2-1.0); pH, Urine 5.5 (5.0-9.0)
[2018-03-07 15:52] LABS: Bacteria/HPF None Seen HPF (None Seen)
[2018-03-07 15:54] LABS: Pathc Cast-AUWi Flag 5.08 (0-2.49); Yeast-AUWi Flag 206.7 (0-25.0)
[2018-03-07 16:03] LABS: Yeast-All Forms 2+ HPF (None Seen)
[2018-03-07 16:04] LABS: Other Casts/LPF 4-6 COARSE GRAN LPF (0-3 Hyaline)
[2018-03-07] MEDS: Carvedilol 3.125 MG TAB PO SCH (16:43)
[2018-03-07] MEDS ORDERED: Gabapentin 300 MG CAP PO SCH (23:45)
[2018-03-07] MEDS: Lidocaine 5% Patch TD SCH (23:58)
[2018-03-08 00:31] LABS: Hemoglobin 7.8 g/dL (12.0-16.0); Platelet Count 279 thou/uL (130-400)
[2018-03-08] MEDS: Heparin 10,000 UNITS/ 10 ML VIAL SLOW IVP SCH ×2 (03:00→20:40)
[2018-03-08 03:19] LABS: Anion Gap 17 mmol/L (10-20); BUN (Urea Nitrogen) 36 mg/dL (9.8-20.1); Calc. Creatinine Clearance 34 mL/min (70-130); Calcium 7.7 mg/dL (7.8-10.44); Carbon Dioxide 16 mmol/L (22-29); Chloride 105 mmol/L (98-107); Estimated GFR-MDRD 22; Glucose 309 mg/dL (70-105); Potassium 4.6 mmol/L (3.5-5.1); Sodium 133 mmol/L (136-145)
[2018-03-08] MEDS: Insulin Regular 300 UNITS/3 ML VIAL SC PRN ×2 (05:41→12:00)
[2018-03-08 08:59] LABS: PTT 148.3 SEC (22.9-36.1)
[2018-03-08] MEDS: Aspirin 81 mg Enteric Coated Tablet PO SCH (09:13)
[2018-03-08] MEDS: Atorvastatin Calcium 40 MG TAB PO SCH (09:13)
[2018-03-08] MEDS: cefTRIAXone\\ROCEPHIN 1 GM in Sodium Chloride 0.9% 100 ML IVPB SCH (09:13)
[2018-03-08] MEDS: Carvedilol 3.125 MG TAB PO SCH ×2 (09:13→17:07)
[2018-03-08] MEDS: Gabapentin 300 MG CAP PO SCH ×3 (09:14→21:13)
[2018-03-08] MEDS: Insulin Glargine 20 UNITS in Pre-Filled Syringe 1 EACH SC SCH ×2 (09:14→21:13)
[2018-03-08] MEDS: Saccharomyces boulardii 250 MG CAP PO SCH (09:14)
--- NOTE | 2018-03-08 09:18 | PRG ---
DATE OF SERVICE: 03/08/2018 Thirty-five minutes critical care time. SUBJECTIVE: The patient remains in the ICU with very labile blood glucose. PHYSICAL EXAMINATION: VITAL SIGNS: Temperature is 98.5, pulse 87, blood pressure 153/95. A 24-hour intake 1259, output 12 45. HEENT: Unremarkable. NECK: No JVD. LUNGS: Clear. CARDIAC: S1 and S2 regular. ABDOMEN: Soft. EXTREMITIES: She has significant leg edema. LABORATORY DATA: Hemoglobin 7.8, hematocrit 23.4, platelet count 279. PTT 51.8. Sodium 133, potass ium 4.6, chloride 105, CO2 16, anion gap 17, BUN 36, creatinine 2.3, glucose 446. ASSESSMENT: 1. Brittle type 1 diabetes mellitus. 2. Status post myocardial infarction. 3. Severely depressed ejection fraction with severe left ventricular dysfunction. 4. Status post diabetic ketoacidosis. 5. Chronic renal insufficiency. PLAN: 1. Resume the Lantus, but I will divide her dose. 2. Continue the heparin drip. 3. Await cardiac catheterization next week. 4. Continue to check labs and follow PTT since she is on heparin drip.
--- NOTE | 2018-03-08 10:50 | PDOC.PN ---
- Subjective Encounter Start Date: 03/08/18 Encounter Start Time: 08:30 -: old records requested/rev Patient seen and examined. No new complaints. No overnight events has cough , no fever - Objective Resuscitation Status: Resuscitation Status FULL:Full Resuscitation MAR Reviewed: Yes Vital Signs & Weight: Vital Signs (12 hours) Temp 03/08/18 04:00 98.5 F 03/08/18 00:00 98.4 F Weight Weight 169 lb 1.513 oz Most Recent Monitor Data Heart Rate from ECG 110 NIBP 130/88 NIBP BP-Mean 101 Respiration from ECG 19 SpO2 100 I&O: 03/07/18 03/08/18 03/09/18 06:59 06:59 06:59 Intake Total 1589.7 1259 240 Output Total 850 1245 200 Balance 739.7 14 40 Result Diagrams: 03/08/18 00:11 03/08/18 02:44 Additional Labs: Accuchecks 03/08/18 03/07/18 03/07/18 05:34 20:41 15:18 POC Glucose 446 H 146 H 82 03/07/18 03/07/18 12:22 11:34 POC Glucose 66 L 52 L* Radiology Reviewed by me: Yes EKG Reviewed by me: Yes Phys Exam - Physical Examination Constitutional: NAD HEENT: PERRLA, moist MMs, sclera anicteric Neck: no JVD, supple Respiratory: no wheezing, no rhonchi reduced air entry at base, few rales+ Cardiovascular: RRR, no significant murmur, no rub tachycardia Gastrointestinal: soft, non-tender, no distention, positive bowel sounds Musculoskeletal: no edema, pulses present Neurological: non-focal, normal sensation, moves all 4 limbs Lymphatic: no nodes Psychiatric: normal affect, A&O x 3 Skin: no rash, normal turgor Dx/Plan (1) Acute renal failure superimposed on stage 3 chronic kidney disease Code(s): N17.9 - ACUTE KIDNEY FAILURE, UNSPECIFIED; N18.3 - CHRONIC KIDNEY DISEASE, STAGE 3 (MODERATE) Status: Acute (2) Acute systolic ACC/AHA stage C congestive heart failure Code(s): I50.21 - ACUTE SYSTOLIC (CONGESTIVE) HEART FAILURE Status: Acute (3) Hypoglycemia associated with type 2 diabetes mellitus Code(s): E11.649 - TYPE 2 DIABETES MELLITUS WITH HYPOGLYCEMIA WITHOUT COMA Status: Acute (4) UTI (urinary tract infection) Status: Acute (5) Anemia, normocytic normochromic Code(s): D64.9 - ANEMIA, UNSPECIFIED Status: Chronic (6) HTN (hypertension) Code(s): I10 - ESSENTIAL (PRIMARY) HYPERTENSION Status: Chronic (7) Hyperlipidemia Code(s): E78.5 - HYPERLIPIDEMIA, UNSPECIFIED Status: Chronic (8) Noncompliance with diet and medication regimen Code(s): Z91.11 - PATIENT'S NONCOMPLIANCE WITH DIETARY REGIMEN; Z91.14 - PATIENT 'S OTHER NONCOMPLIANCE WITH MEDICATION REGIMEN Status: Chronic (9) Peripheral neuropathy Code(s): G62.9 - POLYNEUROPATHY, UNSPECIFIED Status: Chronic (10) Tobacco abuse Code(s): Z72.0 - TOBACCO USE Status: Chronic (11) Type II diabetes mellitus Status: Chronic (12) DKA, type 2 Code(s): E11.10 - TYPE 2 DIABETES MELLITUS WITH KETOACIDOSIS WITHOUT COMA Status: Resolved - Plan cont current plan of care, continue antibiotics * currently on heparin drip * continue lasix * add rocephin for UTI and send urine culture * cardiology and pulmonary on case * medication reviewed as below * symptomatic treatment. * when stable will need cardiac cath Review of Systems - Review of Systems Eyes: negative: Pain, Vision Change, Conjunctivae Inflammation, Eyelid Inflammation, Redness, Other ENT: negative: Ear Pain, Ear Discharge, Nose Pain, Nose Discharge, Nose Congestion, Mouth Pain, Mouth Swelling, Throat Pain, Throat Swelling, Other Respiratory: Cough, Shortness of Breath, SOB with Excertion. negative: Dry, Hemoptysis, Pleuritic Pain, Sputum, Wheezing Cardiovascular: negative: chest pain, palpitations, orthopnea, paroxysmal nocturnal dyspnea, edema, light headedness, other Gastrointestinal: negative: Nausea, Vomiting, Abdominal Pain, Diarrhea, Constipation, Melena, Hematochezia, Other Genitourinary: negative: Dysuria, Frequency, Incontinence, Hematuria, Retention , Other Musculoskeletal: negative: Neck Pain, Shoulder Pain, Arm Pain, Back Pain, Hand Pain, Leg Pain, Foot Pain, Other Skin: negative: Rash, Lesions, Jan, Bruising, Other - Medications/Allergies Allergies/Adverse Reactions: Allergies Allergy/AdvReac Type Severity Reaction Status Date / Time camphor Allergy Verified 12/03/17 22:05 ciprofloxacin [From Cipro] Allergy Verified 12/03/17 22:05 hydralazine Allergy Verified 07/17/17 14:46 insulin lispro Allergy Verified 03/07/18 17:34 [From Humalog Mix] insulin lispro protamine Allergy Verified 03/07/18 17:34 [From Humalog Mix] naproxen [From Naprosyn] Allergy Verified 07/17/17 14:46 Medications: Current Medications Acetaminophen (Tylenol) 650 mg PO Q4H PRN PRN Reason: Headache/Fever or Pain Last Admin: 03/07/18 09:58 Dose: 650 mg Aspirin (Ecotrin) 81 mg PO DAILY [facility] Last Admin: 03/08/18 09:13 Dose: 81 mg Atorvastatin Calcium (Lipitor) 40 mg PO DAILY [facility] Last Admin: 03/08/18 09:13 Dose: 40 mg Bisacodyl (Dulcolax) 10 mg PO DAILYPRN PRN PRN Reason: Constipation Carvedilol (Coreg) 3.125 mg PO BID-[facility] Last Admin: 03/08/18 09:13 Dose: 3.125 mg Dextrose/Water (Dextrose 50%) 25 gm SLOW IVP PRN PRN PRN Reason: Hypoglycemia Last Admin: 03/07/18 12:26 Dose: 25 gm Gabapentin (Neurontin) 300 mg PO TID [facility] Last Admin: 03/08/18 09:14 Dose: 300 mg Glucagon (Glucagon) 1 mg IM PRN PRN PRN Reason: Hypoglycemia Heparin Sodium (Porcine) (Heparin 1,000 Units/Ml (10 Ml)) 0 units SLOW IVP ASDIR [facility]; Protocol Last Admin: 03/08/18 03:00 Dose: 2,301 unit Heparin Sodium/Dextrose (Heparin 25,000 Units/D5w 500 Ml) 500 mls @ 0 mls/hr IVPB INF [facility]; Protocol Last Admin: 03/07/18 14:29 Dose: 500 mls Potassium Chloride 40 meq/ (Sodium Chloride) 270 mls @ 135 mls/hr IVPB ASDIR PRN PRN Reason: FOR SERUM K+ 2.5 - 3.5 Potassium Chloride 40 meq/ (Device) 100 mls @ 50 mls/hr IVPB ASDIR PRN PRN Reason: FOR SERUM K+ 2.5 - 3.5 Last Admin: 03/06/18 08:26 Dose: 100 mls Magnesium Sulfate 1 gm/ Sodium (Chloride) 102 mls @ 102 mls/hr IV PRN PRN PRN Reason: MAG LEVEL 1.4 - 2.0 Magnesium Sulfate 2 gm/ Device 100 mls @ 100 mls/hr IVPB ASDIR PRN PRN Reason: MAGNESIUM < 1.4 Potassium Phosphate 9 mmol/ (Sodium Chloride) 103 mls @ 25.75 mls/hr IVPB ASDIR PRN PRN Reason: Phosphate 1.0-1.8 Potassium Phosphate 12 mmol/ (Sodium Chloride) 254 mls @ 63.5 mls/hr IV ASDIR PRN PRN Reason: Serum phosphate 0.5-0.9 Potassium Phosphate 15 mmol/ (Sodium Chloride) 255 mls @ 63.75 mls/hr IV ASDIR PRN PRN Reason: Serum Phos < 0.5 Dextrose/Water (D5w) 1,000 mls @ 0 mls/hr IV .Q0M PRN PRN Reason: Hypoglycemia Insulin Glargine 20 units/ (Miscellaneous Medication) 0.2 mls @ 0 mls/hr SC BID [facility] Last Admin: 03/08/18 09:14 Dose: 0.2 mls Ceftriaxone Sodium 1 gm/ (Sodium Chloride) 100 mls @ 200 mls/hr IVPB 09 [facility] Last Admin: 03/08/18 09:13 Dose: 100 mls Insulin Human Regular (Humulin R) 0 units SC .AGGRESSIVE SLIDING PRN PRN Reason: Aggressive Sliding Scale Last Admin: 03/08/18 05:41 Dose: 13 unit Insulin Human Regular (Humulin R) 0 units SC .BEDTIME SLIDING SC PRN PRN Reason: Bedtime Correctional Scale Lactulose (Lactulose) 20 gm PO DAILYPRN PRN PRN Reason: Constipation Lidocaine (Lidoderm 5% Patch) 1 patch TD 7968 [facility] Last Admin: 03/07/18 23:58 Dose: 1 patch Magnesium Oxide (Magnesium Oxide) 400 mg PO BIDPRN PRN PRN Reason: FOR SERUM MAG 1.4 - 2.0 Magnesium Oxide (Magnesium Oxide) 800 mg PO PRN PRN PRN Reason: FOR SERUM MAG < 1.4 Miscellaneous Medication (Phos-Nak) 1 pkt PO TIDPRN PRN PRN Reason: FOR PHOS LEVEL 1.0 - 1.8 Miscellaneous Medication (Phos-Nak) 2 pkt PO TIDPRN PRN PRN Reason: FOR PHOS LEVEL 0.5 - 1.0 Miscellaneous Medication (Lidocaine Patch Removal) 1 each TOP 1200 [facility] Ccu Electrolyte (Replacement Protocol) 0 each FS PRN PRN PRN Reason: FOR ELECTROLYTE REPLACEMENT Ondansetron HCl (Zofran Odt) 4 mg PO Q6H PRN PRN Reason: Nausea/Vomiting Ondansetron HCl (Zofran) 4 mg IVP Q6H PRN PRN Reason: Nausea/Vomiting Last Admin: 03/06/18 12:36 Dose: 4 mg Pantoprazole Sodium (Protonix) 40 mg PO DAILY [facility] Last Admin: 03/08/18 09:14 Dose: 40 mg Potassium Chloride (K-Dur) 40 meq PO ASDIR PRN PRN Reason: FOR SERUM K+ 2.5 - 3.5 Potassium Chloride (Klor-Con) 40 meq PER TUBE ASDIR PRN PRN Reason: FOR SERUM K+ 2.5-3.5 Saccharomyces Boulardii (Florastor) 250 mg PO DAILY [facility] Last Admin: 03/08/18 09:14 Dose: 250 mg Sodium Chloride (Flush - Normal Saline) 10 ml IVF Q12HR [facility] Last Admin: 03/08/18 09:14 Dose: 10 ml Sodium Chloride (Flush - Normal Saline) 10 ml IVF PRN PRN PRN Reason: Saline Flush
[2018-03-08] MEDS: Lidocaine Patch Removal 1 EACH TOP SCH (12:04)
[2018-03-08] MEDS ORDERED: Furosemide 20 MG/2 ML VIAL SLOW IVP SCH (12:45)
--- NOTE | 2018-03-08 13:14 | PRG ---
DATE OF SERVICE: 03/08/2018 SUBJECTIVE: This is a 52-year-old lady being seen for acute kidney injury. The patient denies any n ausea, vomiting or chest pain. PHYSICAL EXAMINATION: GENERAL: Patient is awake, alert. VITAL SIGNS: Afebrile, pulse 77, breathing at 16, blood pressure 92/62. GENERAL APPEARANCE AND MENTAL STATUS: Fair. HEAD/NECK: Normocephalic. Atraumatic. EYES: EOMI. No deformity. EARS: Clear. No ulcers. NOSE: Intact. No lesions. MOUTH: Clear. No discharge. THROAT: Clear. No exudate. LUNGS: Clear. No crackles. CARDIAC: S1, S2. No rub. ABDOMEN: Benign. BS+. GENITALIA/RECTUM: Loo absent. BACK/EXTREMITIES: Lower extremities have edema. Ulcer-. NEUROLOGICAL: Alert and motor intact. SKIN: Rash- Bruise- LYMPHATICS: Edema- Ulcer-. LABORATORY DATA: Show hemoglobin 7.8, creatinine 2.34. ASSESSMENT AND RECOMMENDATIONS: 1. Acute kidney injury with chronic kidney disease, due to cardiorenal syndrome. 2. Acute tubular necrosis. 3. Metabolic acidosis. We will consider bicarbonate if bicarbonate is less than 16. 4. Congestive heart failure. We will start Lasix 20 mg IV to help with edema. No indication for di alysis.
[2018-03-08] MEDS: Heparin 25,000 units/D5W 500 ML IVPB SCH (13:25)
[2018-03-08] MEDS ORDERED: Albumin 25% 25 GM/100 ML BOT IVPB SCH (21:15)
[2018-03-09] MEDS: Lidocaine 5% Patch TD SCH (00:01)
[2018-03-09 02:03] LABS: #Basophils 0.1 thou/uL (0.0-0.2); #Eosinphils 0.1 thou/uL (0.0-0.7); #Lymphocytes 1.7 thou/uL (1.20-3.40); #Monocytes 0.7 thou/uL (0.11-0.59); #Neutrophils 4.6 thou/uL (1.40-6.50); %Basophils 0.8 % (0.0-1.0); %Eosinophils 1.7 % (0.0-10.0); %Lymphocytes 23.5 % (21.0-51.0); %Monocytes 9.2 % (0.0-10.0); %Neutrophils 64.7 % (42.0-75.0); Hemoglobin 6.7 g/dL (12.0-16.0); Mean Corpuscular HGB CONC 32.7 g/dL (32.0-36.0); Mean Corpuscular Hemoglobin 29.5 pg (27.0-31.0); Mean Corpuscular Volume 90.3 fL (78.0-98.0); Mean Platelet Volume 8.9 fL (7.4-10.4); Platelet Count 277 thou/uL (130-400); RBC Distribution Width 14.6 % (11.5-14.5); Red Blood Cell (RBC) Count 2.28 mill/uL (4.20-5.40); White Blood Cell (WBC) Count 7.1 thou/uL (4.8-10.8)
[2018-03-09 02:43] LABS: Anion Gap 17 mmol/L (10-20); BUN (Urea Nitrogen) 41 mg/dL (9.8-20.1); Calc. Creatinine Clearance 36 mL/min (70-130); Calcium 7.9 mg/dL (7.8-10.44); Carbon Dioxide 17 mmol/L (22-29); Chloride 106 mmol/L (98-107); Estimated GFR-MDRD 22; Glucose 119 mg/dL (70-105); Potassium 4.5 mmol/L (3.5-5.1); Sodium 135 mmol/L (136-145)
[2018-03-09] MEDS: Acetaminophen 325 MG TAB PO PRN ×2 (05:21→07:52)
[2018-03-09] MEDS: Heparin 25,000 units/D5W 500 ML IVPB SCH (05:21)
[2018-03-09] MEDS: Gabapentin 300 MG CAP PO SCH ×3 (07:52→21:07)
[2018-03-09] MEDS: Aspirin 81 mg Enteric Coated Tablet PO SCH (07:52)
[2018-03-09] MEDS: Atorvastatin Calcium 40 MG TAB PO SCH (07:52)
[2018-03-09] MEDS: Saccharomyces boulardii 250 MG CAP PO SCH (07:52)
[2018-03-09] MEDS: Insulin Glargine 20 UNITS in Pre-Filled Syringe 1 EACH SC SCH ×2 (07:53→21:08)
[2018-03-09] MEDS: cefTRIAXone\\ROCEPHIN 1 GM in Sodium Chloride 0.9% 100 ML IVPB SCH (07:53)
[2018-03-09] MEDS ORDERED: Epoetin (ESRD) 20,000 UNITS/ML SC SCH (08:30)
[2018-03-09] MEDS ORDERED: Ferrous Sulfate 325 MG TAB PO SCH (08:45)
--- NOTE | 2018-03-09 08:48 | PRG ---
DATE OF SERVICE: 03/09/2018 The patient is very tearful. She is upset about everything having to do with her health care. PHYSICAL EXAMINATION: VITAL SIGNS: Temperature is 98.4, pulse 95, blood pressure 108/74. 24 hour intake 2033, output 995. HEENT: Unremarkable. NECK: No JVD or bruits. LUNGS: Fairly clear anteriorly. CARDIOVASCULAR: S1 and S2 regular. ABDOMEN: Soft. EXTREMITIES: Edematous throughout. LABORATORY DATA: Sodium 135, potassium 4.5, chloride 106, CO2 17, BUN 41, creatinine 2.3, glucose 11 9. White blood cell count 7.1, hemoglobin 6.7, hematocrit 20.6, platelet count 277. PTT is 93.1. ASSESSMENT: 1. Myocardial infarction. 2. Diabetic ketoacidosis/hyperosmolar state at the time of admission. 2. Chronic renal insufficiency. PLAN: This patient will be transferred out to the floor. She is continuing on the heparin drip at t he discretion of the Cardiology team. I am going to have to give her a unit of blood. If at all pos sible, I would like to see in the heparin drip stopped. She will remain on the Lantus insulin twice daily. Initiate physical therapy.
[2018-03-09] MEDS: Insulin Regular 300 UNITS/3 ML VIAL SC PRN (11:17)
--- NOTE | 2018-03-09 11:57 | PRG ---
DATE OF SERVICE: 03/09/2018 SUBJECTIVE: This is a 52-year-old female being seen for acute kidney injury. The patient denies any nausea, vomiting, or chest pain. PHYSICAL EXAMINATION: GENERAL: Patient is awake, alert. VITAL SIGNS: Afebrile, pulse 89, breathing at 16, blood pressure 89/59. OBJECTIVE: See above. Awake, alert, in no acute distress. GENERAL APPEARANCE AND MENTAL STATUS: Fair. HEAD/NECK: Normocephalic. Atraumatic. EYES: EOMI. No deformity. EARS: Clear. No ulcers. NOSE: Intact. No lesions. MOUTH: Clear. No discharge. THROAT: Clear. No exudate. LUNGS: Clear. No crackles. CARDIAC: S1, S2. No rub. ABDOMEN: Benign. BS+. GENITALIA/RECTUM: Loo absent. BACK/EXTREMITIES: Lower extremities have edema. NEUROLOGICAL: Alert and motor intact. SKIN: Rash- Bruise- LYMPHATICS: Edema- Ulcer- LABORATORY: Hemoglobin 6.7, creatinine 3.4. ASSESSMENT AND RECOMMENDATIONS: 1. Acute kidney and chronic kidney disease due to congestive heart failure, multifactorial. No karo cation for dialysis. 2. Hypotension due to congestive heart failure. 3. Anemia, I agree with transfusion. 4. Metabolic acidosis, stable. No urgent indication for dialysis. The patient cannot tolerate diuretics. If the renal function gets any worse, we will consider renal replacement therapy.
--- NOTE | 2018-03-09 12:11 | PDOC.PN ---
- Subjective Encounter Start Date: 03/09/18 Encounter Start Time: 08:50 -: old records requested/rev Patient seen and examined. No new complaints. No overnight events she has no BM, no abdominal pain, has cough, no chest pain, - Objective Resuscitation Status: Resuscitation Status FULL:Full Resuscitation MAR Reviewed: Yes Vital Signs & Weight: Vital Signs (12 hours) Temp Pulse Resp Pulse Ox 03/09/18 11:00 98.9 F 03/09/18 10:33 98.5 F 03/09/18 08:00 99.1 F 95 18 100 03/09/18 05:00 98.4 F Weight Weight 179 lb 3.773 oz Most Recent Monitor Data Heart Rate from ECG 89 NIBP 89/59 NIBP BP-Mean 73 Respiration from ECG 17 SpO2 99 I&O: 03/08/18 03/09/18 03/10/18 06:59 06:59 06:59 Intake Total 1259 2034 671 Output Total 1245 995 160 Balance 14 1039 511 Result Diagrams: 03/09/18 01:50 03/09/18 01:50 Additional Labs: Accuchecks 03/09/18 03/09/18 03/09/18 11:12 06:16 01:48 POC Glucose 321 H 245 H 123 H 03/08/18 03/08/18 03/08/18 20:37 16:59 16:05 POC Glucose 129 H 100 103 03/08/18 03/06/18 11:41 22:40 POC Glucose 247 H Less than 35 L* EKG Reviewed by me: Yes Phys Exam - Physical Examination Constitutional: NAD HEENT: PERRLA, moist MMs, sclera anicteric Neck: no JVD, supple Respiratory: no wheezing, no rales, no rhonchi Cardiovascular: RRR, no significant murmur, no rub Gastrointestinal: soft, non-tender, no distention, positive bowel sounds Musculoskeletal: no edema, pulses present Neurological: non-focal, normal sensation Lymphatic: no nodes Psychiatric: normal affect Skin: no rash, normal turgor Dx/Plan (1) Acute renal failure superimposed on stage 3 chronic kidney disease Code(s): N17.9 - ACUTE KIDNEY FAILURE, UNSPECIFIED; N18.3 - CHRONIC KIDNEY DISEASE, STAGE 3 (MODERATE) Status: Acute (2) Acute systolic ACC/AHA stage C congestive heart failure Code(s): I50.21 - ACUTE SYSTOLIC (CONGESTIVE) HEART FAILURE Status: Acute (3) Hypoglycemia associated with type 2 diabetes mellitus Code(s): E11.649 - TYPE 2 DIABETES MELLITUS WITH HYPOGLYCEMIA WITHOUT COMA Status: Acute (4) UTI (urinary tract infection) Status: Acute (5) Anemia, normocytic normochromic Code(s): D64.9 - ANEMIA, UNSPECIFIED Status: Chronic (6) HTN (hypertension) Code(s): I10 - ESSENTIAL (PRIMARY) HYPERTENSION Status: Chronic (7) Hyperlipidemia Code(s): E78.5 - HYPERLIPIDEMIA, UNSPECIFIED Status: Chronic (8) Noncompliance with diet and medication regimen Code(s): Z91.11 - PATIENT'S NONCOMPLIANCE WITH DIETARY REGIMEN; Z91.14 - PATIENT 'S OTHER NONCOMPLIANCE WITH MEDICATION REGIMEN Status: Chronic (9) Peripheral neuropathy Code(s): G62.9 - POLYNEUROPATHY, UNSPECIFIED Status: Chronic (10) Tobacco abuse Code(s): Z72.0 - TOBACCO USE Status: Chronic (11) Type II diabetes mellitus Status: Chronic (12) DKA, type 2 Code(s): E11.10 - TYPE 2 DIABETES MELLITUS WITH KETOACIDOSIS WITHOUT COMA Status: Resolved (13) Anemia Code(s): D64.9 - ANEMIA, UNSPECIFIED Status: Acute - Plan cont current plan of care, continue antibiotics * check fobt * if positive, will consult GI * today will transfuse prbc * cardiology following * will need eventual cardiac cath * will need life vest before discharge * DC fitch today * medication reviewed as below * symptomatic treatment. * on heparin drip Review of Systems - Review of Systems ENT: negative: Ear Pain, Ear Discharge, Nose Pain, Nose Discharge, Nose Congestion, Mouth Pain, Mouth Swelling, Throat Pain, Throat Swelling, Other Respiratory: negative: Cough, Dry, Shortness of Breath, Hemoptysis, SOB with Excertion, Pleuritic Pain, Sputum, Wheezing Cardiovascular: negative: chest pain, palpitations, orthopnea, paroxysmal nocturnal dyspnea, edema, light headedness, other Gastrointestinal: negative: Nausea, Vomiting, Abdominal Pain, Diarrhea, Constipation, Melena, Hematochezia, Other Genitourinary: negative: Dysuria, Frequency, Incontinence, Hematuria, Retention , Other Musculoskeletal: negative: Neck Pain, Shoulder Pain, Arm Pain, Back Pain, Hand Pain, Leg Pain, Foot Pain, Other - Medications/Allergies Allergies/Adverse Reactions: Allergies Allergy/AdvReac Type Severity Reaction Status Date / Time camphor Allergy Verified 12/03/17 22:05 ciprofloxacin [From Cipro] Allergy Verified 12/03/17 22:05 hydralazine Allergy Verified 07/17/17 14:46 insulin lispro Allergy Verified 03/07/18 17:34 [From Humalog Mix] insulin lispro protamine Allergy Verified 03/07/18 17:34 [From Humalog Mix] naproxen [From Naprosyn] Allergy Verified 07/17/17 14:46 Medications: Current Medications Acetaminophen (Tylenol) 650 mg PO Q4H PRN PRN Reason: Headache/Fever or Pain Last Admin: 03/09/18 07:52 Dose: 650 mg Aspirin (Ecotrin) 81 mg PO DAILY [facility] Last Admin: 03/09/18 07:52 Dose: 81 mg Atorvastatin Calcium (Lipitor) 40 mg PO DAILY [facility] Last Admin: 03/09/18 07:52 Dose: 40 mg Bisacodyl (Dulcolax) 10 mg PO DAILYPRN PRN PRN Reason: Constipation Dextrose/Water (Dextrose 50%) 25 gm SLOW IVP PRN PRN PRN Reason: Hypoglycemia Last Admin: 03/07/18 12:26 Dose: 25 gm Ferrous Sulfate (Feosol) 325 mg PO QAM[facility] Gabapentin (Neurontin) 300 mg PO TID [facility] Last Admin: 03/09/18 07:52 Dose: 300 mg Glucagon (Glucagon) 1 mg IM PRN PRN PRN Reason: Hypoglycemia Dextrose/Water (D5w) 1,000 mls @ 0 mls/hr IV .Q0M PRN PRN Reason: Hypoglycemia Insulin Glargine 20 units/ (Miscellaneous Medication) 0.2 mls @ 0 mls/hr SC BID [facility] Last Admin: 03/09/18 07:53 Dose: 0.2 mls Ceftriaxone Sodium 1 gm/ (Sodium Chloride) 100 mls @ 200 mls/hr IVPB 0900 [facility] Last Admin: 03/09/18 07:53 Dose: 100 mls Insulin Human Regular (Humulin R) 0 units SC .AGGRESSIVE SLIDING PRN PRN Reason: Aggressive Sliding Scale Last Admin: 03/09/18 11:17 Dose: 11 unit Insulin Human Regular (Humulin R) 0 units SC .BEDTIME SLIDING SC PRN PRN Reason: Bedtime Correctional Scale Lactulose (Lactulose) 20 gm PO DAILYPRN PRN PRN Reason: Constipation Lidocaine (Lidoderm 5% Patch) 1 patch TD 2951 [facility] Last Admin: 03/09/18 00:01 Dose: Not Given Miscellaneous Medication (Lidocaine Patch Removal) 1 each TOP 1200 [facility] Last Admin: 03/08/18 12:04 Dose: 1 each Ccu Electrolyte (Replacement Protocol) 0 each FS PRN PRN PRN Reason: FOR ELECTROLYTE REPLACEMENT Ondansetron HCl (Zofran Odt) 4 mg PO Q6H PRN PRN Reason: Nausea/Vomiting Ondansetron HCl (Zofran) 4 mg IVP Q6H PRN PRN Reason: Nausea/Vomiting Last Admin: 03/06/18 12:36 Dose: 4 mg Pantoprazole Sodium (Protonix) 40 mg PO DAILY [facility] Last Admin: 03/09/18 07:52 Dose: 40 mg Saccharomyces Boulardii (Florastor) 250 mg PO DAILY [facility] Last Admin: 03/09/18 07:52 Dose: 250 mg Sodium Chloride (Flush - Normal Saline) 10 ml IVF Q12HR [facility] Last Admin: 03/09/18 07:54 Dose: 10 ml Sodium Chloride (Flush - Normal Saline) 10 ml IVF PRN PRN PRN Reason: Saline Flush
[2018-03-09] MEDS: Lidocaine Patch Removal 1 EACH TOP SCH (12:13)
--- NOTE | 2018-03-09 12:27 | PDOC.CTH ---
<Pattie Chapman - Last Filed: 03/09/18 12:28> Cardiology Progress Note - Subjective The pt seen and examined. No overnight events. No cardiac complaints. She is receiving 1 out 2 units of PRBC tx now. - Objective Vital Signs Temp Pulse Resp Pulse Ox 03/09/18 11:00 98.9 F 03/09/18 10:33 98.5 F 03/09/18 08:00 99.1 F 95 18 100 03/09/18 05:00 98.4 F Weight 179 lb 3.773 oz 03/08/18 03/09/18 03/10/18 06:59 06:59 06:59 Intake Total 1259 2034 671 Output Total 1245 995 160 Balance 14 1039 511 - Physical Examination General/Neuro: alert & oriented x3 Neck: no JVD present Lungs: CTA (diminished at bases) Heart: RRR Abdomen: soft Extremities: other: (No edema) - Telemetry Telemetry Rhythm: SR 90 - Labs Result Diagrams: 03/09/18 01:50 03/09/18 01:50 Troponin/CKMB CK-MB (CK-2) 28.7 ng/mL (0-6.6) H* 03/05/18 18:07 Troponin I 162.370 ng/mL (< 0.028) H* 03/06/18 07:44 - Assessment/Plan 1. S/P Anterior FL - Stable with Coreg, ASA, Statin. On Heparin drip. Pt will need a cath next week when stable. 2. Acute renal isufficiency on CKD stage 3 - improved. Nephrology following. 3. DKA - per primary service. Pt. poorly controlled. Noncompliant likely at home. 4. Severe CMY,ischemic - She will need a cath and likely a Life-Vest on d/c. She will need to be compliant with F/U. 5. HTN - stable 6. UTI - fitch was d/devon today. managed by PCP 7. Anemia - Receiving 2 units of PRBCs today. 8. Current smoker - smoking cessation education given to the pt. 9. Hyperlipidemia - on Statin. 10. Non-compliance with diet and medication regimen - education given to the pt. Review of Systems - Review of Systems Constitutional: reports: weakness EENTM: reports: no symptoms reported Respiratory: reports: no symptoms reported Cardiac (ROS): reports: no symptoms reported ABD/GI: reports: no symptoms reported : reports: no symptoms reported Musculoskeletal: reports: no symptoms reported <Souleymane Robledo - Last Filed: 03/09/18 22:28> Cardiology Progress Note - Objective Vital Signs Temp Pulse Resp Pulse Ox 03/09/18 20:00 98.2 F 96 17 100 03/09/18 19:00 98.2 F 03/09/18 16:43 98.2 F 99 03/09/18 16:00 98.7 F 03/09/18 14:30 98.1 F 03/09/18 14:14 98.5 F 03/09/18 14:00 98.4 F 03/09/18 11:00 98.9 F 03/09/18 10:33 98.5 F Admit Weight 169 lb Weight 179 lb 3.773 oz 03/08/18 03/09/18 03/10/18 06:59 06:59 06:59 Intake Total 1259 2034 2161 Output Total 1245 995 360 Balance 14 1039 1801 - Labs Result Diagrams: 03/09/18 01:50 03/09/18 01:50 Troponin/CKMB CK-MB (CK-2) 28.7 ng/mL (0-6.6) H* 03/05/18 18:07 Troponin I 162.370 ng/mL (< 0.028) H* 03/06/18 07:44 - Assessment/Plan Pt.seen and eval. by me.I agree with the A/P by the [employer]. She wants to go home but is still edematous and the DM is not under control. Chest clear. RRR. When she is stable it would be advisable to evaluate her coronary anatomy to seeif she is at risk for further major FL's.
[2018-03-10 00:43] LABS: Hemoglobin 9.5 g/dL (12.0-16.0); Platelet Count 341 thou/uL (130-400)
[2018-03-10 01:10] LABS: Anion Gap 17 mmol/L (10-20); BUN (Urea Nitrogen) 44 mg/dL (9.8-20.1); Calc. Creatinine Clearance 34 mL/min (70-130); Calcium 8.3 mg/dL (7.8-10.44); Carbon Dioxide 17 mmol/L (22-29); Chloride 106 mmol/L (98-107); Estimated GFR-MDRD 20; Glucose 127 mg/dL (70-105); Potassium 4.5 mmol/L (3.5-5.1); Sodium 135 mmol/L (136-145)
[2018-03-10] MEDS: Lidocaine 5% Patch TD SCH (02:32)
[2018-03-10] MEDS: Insulin Regular 300 UNITS/3 ML VIAL SC PRN (06:05)
[2018-03-10] MEDS ORDERED: Furosemide 20 MG/2 ML VIAL ONE ×2 (09:07→09:10)
[2018-03-10] MEDS ORDERED: Furosemide 20 MG/2 ML VIAL SLOW IVP SCH (10:45)
[2018-03-10] MEDS: Gabapentin 300 MG CAP PO SCH ×3 (10:49→21:36)
[2018-03-10] MEDS: Atorvastatin Calcium 40 MG TAB PO SCH (10:49)
[2018-03-10] MEDS: Ferrous Sulfate 325 MG TAB PO SCH (10:49)
[2018-03-10] MEDS: cefTRIAXone\\ROCEPHIN 1 GM in Sodium Chloride 0.9% 100 ML IVPB SCH (10:49)
[2018-03-10] MEDS: Aspirin 81 mg Enteric Coated Tablet PO SCH (10:49)
[2018-03-10] MEDS: Saccharomyces boulardii 250 MG CAP PO SCH (10:53)
--- NOTE | 2018-03-10 11:23 | PRG ---
DATE OF SERVICE: 03/10/2018 Ms. Kaba is complaining that she wants to go home. She is tired of receiving medical care. She is agitated with all the nursing staff. PHYSICAL EXAMINATION: VITAL SIGNS: Her temperature is 97, pulse 109, blood pressure 121/77, respiratory rate 18, blood glu coses have been running okay. HEENT: Unremarkable. NECK: No adenopathy or JVD. LUNGS: Clear. CARDIAC: S1 and S2 regular. ABDOMEN: Soft, nontender. EXTREMITIES: Trace edema. LABORATORY: Labs were not available because the computer system is down. ASSESSMENT: 1. Diabetic ketoacidosis/hyperosmolar state - this has resolved. 2. Type 1 diabetes mellitus. 3. Myocardial infarction. 4. Congestive heart failure/cardiomyopathy. PLAN: I discouraged her from going home as I think she needs continued cardiac evaluation. Her bloo d sugar seemed to be stable on current Lantus insulin regimen. We are waiting transfer out to a bed on the floor.
--- NOTE | 2018-03-10 12:40 | PDOC.PN ---
- Subjective Encounter Start Date: 03/10/18 Encounter Start Time: 09:00 this morning pt was trying to leave AMA but explained to stay in hospital she has edema and dyspnea, no chest pain - Objective Resuscitation Status: Resuscitation Status FULL:Full Resuscitation MAR Reviewed: Yes Vital Signs & Weight: Vital Signs (12 hours) Temp 03/10/18 08:00 98.5 F 03/10/18 04:00 98.7 F Weight Admit Weight 169 lb Weight 179 lb 3.773 oz Most Recent Monitor Data Heart Rate from ECG 103 NIBP 121/77 NIBP BP-Mean 92 Respiration from ECG 21 SpO2 99 I&O: 03/09/18 03/10/18 03/11/18 06:59 06:59 06:59 Intake Total 2034 3241 640 Output Total 995 910 300 Balance 1039 2331 340 Result Diagrams: 03/09/18 23:59 03/10/18 00:21 Additional Labs: Accuchecks 03/10/18 03/09/18 03/09/18 06:02 20:50 16:41 POC Glucose 303 H 177 H 112 H EKG Reviewed by me: Yes (sinus tachycardia) Phys Exam - Physical Examination Constitutional: NAD HEENT: PERRLA, moist MMs, sclera anicteric Neck: no JVD, supple Respiratory: no wheezing, no rhonchi few basal rales Cardiovascular: RRR, no significant murmur, no rub, gallop Gastrointestinal: soft, non-tender, no distention, positive bowel sounds Musculoskeletal: pulses present, edema present Neurological: non-focal, normal sensation Lymphatic: no nodes Psychiatric: normal affect, A&O x 3 Skin: no rash, normal turgor Dx/Plan (1) Acute renal failure superimposed on stage 3 chronic kidney disease Code(s): N17.9 - ACUTE KIDNEY FAILURE, UNSPECIFIED; N18.3 - CHRONIC KIDNEY DISEASE, STAGE 3 (MODERATE) Status: Acute (2) Acute systolic ACC/AHA stage C congestive heart failure Code(s): I50.21 - ACUTE SYSTOLIC (CONGESTIVE) HEART FAILURE Status: Acute (3) Hypoglycemia associated with type 2 diabetes mellitus Code(s): E11.649 - TYPE 2 DIABETES MELLITUS WITH HYPOGLYCEMIA WITHOUT COMA Status: Acute (4) UTI (urinary tract infection) Status: Acute (5) Anemia, normocytic normochromic Code(s): D64.9 - ANEMIA, UNSPECIFIED Status: Chronic (6) HTN (hypertension) Code(s): I10 - ESSENTIAL (PRIMARY) HYPERTENSION Status: Chronic (7) Hyperlipidemia Code(s): E78.5 - HYPERLIPIDEMIA, UNSPECIFIED Status: Chronic (8) Noncompliance with diet and medication regimen Code(s): Z91.11 - PATIENT'S NONCOMPLIANCE WITH DIETARY REGIMEN; Z91.14 - PATIENT 'S OTHER NONCOMPLIANCE WITH MEDICATION REGIMEN Status: Chronic (9) Peripheral neuropathy Code(s): G62.9 - POLYNEUROPATHY, UNSPECIFIED Status: Chronic (10) Tobacco abuse Code(s): Z72.0 - TOBACCO USE Status: Chronic (11) Type II diabetes mellitus Status: Chronic (12) DKA, type 2 Code(s): E11.10 - TYPE 2 DIABETES MELLITUS WITH KETOACIDOSIS WITHOUT COMA Status: Resolved (13) Anemia Code(s): D64.9 - ANEMIA, UNSPECIFIED Status: Acute - Plan cont current plan of care * continue current optimum medical management as per cardiology and pulmonary * medication reviewed as below * symptomatic treatment * will monitor * transfer decision will defer to cardiology and pulmonary. * will adjust insulin dose * H & H stable and better after transfusion Review of Systems - Review of Systems Constitutional: negative: fever, chills, sweats, weakness, malaise, other Eyes: negative: Pain, Vision Change, Conjunctivae Inflammation, Eyelid Inflammation, Redness, Other ENT: negative: Ear Pain, Ear Discharge, Nose Pain, Nose Discharge, Nose Congestion, Mouth Pain, Mouth Swelling, Throat Pain, Throat Swelling, Other Respiratory: Shortness of Breath, SOB with Excertion. negative: Cough, Dry, Hemoptysis, Pleuritic Pain, Sputum, Wheezing Cardiovascular: edema Gastrointestinal: negative: Nausea, Vomiting, Abdominal Pain, Diarrhea, Constipation, Melena, Hematochezia, Other Genitourinary: negative: Dysuria, Frequency, Incontinence, Hematuria, Retention , Other Musculoskeletal: negative: Neck Pain, Shoulder Pain, Arm Pain, Back Pain, Hand Pain, Leg Pain, Foot Pain, Other Skin: negative: Rash, Lesions, Jan, Bruising, Other - Medications/Allergies Allergies/Adverse Reactions: Allergies Allergy/AdvReac Type Severity Reaction Status Date / Time camphor Allergy Verified 12/03/17 22:05 ciprofloxacin [From Cipro] Allergy Verified 12/03/17 22:05 hydralazine Allergy Verified 07/17/17 14:46 insulin lispro Allergy Verified 03/07/18 17:34 [From Humalog Mix] insulin lispro protamine Allergy Verified 03/07/18 17:34 [From Humalog Mix] naproxen [From Naprosyn] Allergy Verified 07/17/17 14:46 Medications: Current Medications Acetaminophen (Tylenol) 650 mg PO Q4H PRN PRN Reason: Headache/Fever or Pain Last Admin: 03/09/18 07:52 Dose: 650 mg Aspirin (Ecotrin) 81 mg PO DAILY [facility] Last Admin: 03/10/18 10:49 Dose: Not Given Atorvastatin Calcium (Lipitor) 40 mg PO DAILY [facility] Last Admin: 03/10/18 10:49 Dose: Not Given Bisacodyl (Dulcolax) 10 mg PO DAILYPRN PRN PRN Reason: Constipation Dextrose/Water (Dextrose 50%) 25 gm SLOW IVP PRN PRN PRN Reason: Hypoglycemia Last Admin: 03/07/18 12:26 Dose: 25 gm Ferrous Sulfate (Feosol) 325 mg PO QAM-[facility] Last Admin: 03/10/18 10:49 Dose: Not Given Gabapentin (Neurontin) 300 mg PO TID [facility] Last Admin: 03/10/18 10:49 Dose: Not Given Glucagon (Glucagon) 1 mg IM PRN PRN PRN Reason: Hypoglycemia Dextrose/Water (D5w) 1,000 mls @ 0 mls/hr IV .Q0M PRN PRN Reason: Hypoglycemia Insulin Glargine 20 units/ (Miscellaneous Medication) 0.2 mls @ 0 mls/hr SC BID [facility] Last Admin: 03/09/18 21:08 Dose: 0.2 mls Ceftriaxone Sodium 1 gm/ (Sodium Chloride) 100 mls @ 200 mls/hr IVPB 0900 [facility] Last Admin: 03/10/18 10:49 Dose: Not Given Insulin Human Regular (Humulin R) 0 units SC .AGGRESSIVE SLIDING PRN PRN Reason: Aggressive Sliding Scale Last Admin: 03/10/18 06:05 Dose: 11 unit Insulin Human Regular (Humulin R) 0 units SC .BEDTIME SLIDING SC PRN PRN Reason: Bedtime Correctional Scale Lactulose (Lactulose) 20 gm PO DAILYPRN PRN PRN Reason: Constipation Lidocaine (Lidoderm 5% Patch) 1 patch TD 2359 [facility] Last Admin: 03/10/18 02:32 Dose: Not Given Miscellaneous Medication (Lidocaine Patch Removal) 1 each TOP 1200 [facility] Last Admin: 03/09/18 12:13 Dose: Not Given Ccu Electrolyte (Replacement Protocol) 0 each FS PRN PRN PRN Reason: FOR ELECTROLYTE REPLACEMENT Ondansetron HCl (Zofran Odt) 4 mg PO Q6H PRN PRN Reason: Nausea/Vomiting Ondansetron HCl (Zofran) 4 mg IVP Q6H PRN PRN Reason: Nausea/Vomiting Last Admin: 03/06/18 12:36 Dose: 4 mg Pantoprazole Sodium (Protonix) 40 mg PO DAILY [facility] Last Admin: 03/10/18 10:53 Dose: Not Given Saccharomyces Boulardii (Florastor) 250 mg PO DAILY [facility] Last Admin: 03/10/18 10:53 Dose: Not Given Sodium Chloride (Flush - Normal Saline) 10 ml IVF Q12HR [facility] Last Admin: 03/10/18 10:54 Dose: Not Given Sodium Chloride (Flush - Normal Saline) 10 ml IVF PRN PRN PRN Reason: Saline Flush
[2018-03-10] MEDS: Insulin Glargine 20 UNITS in Pre-Filled Syringe 1 EACH SC SCH ×2 (13:34→21:35)
[2018-03-10] MEDS: Lidocaine Patch Removal 1 EACH TOP SCH (13:35)
--- NOTE | 2018-03-10 15:06 | PDOC.CTH ---
<Pattie Chapman - Last Filed: 03/10/18 15:04> Cardiology Progress Note - Subjective The pt seen and examined. No overnight events. No cardiac complaints. She would like to go home. - Objective Vital Signs Temp Pulse Resp 03/10/18 11:00 98.9 F 03/10/18 08:00 98.5 F 92 19 03/10/18 04:00 98.7 F Admit Weight 169 lb Weight 179 lb 3.773 oz 03/09/18 03/10/18 03/11/18 06:59 06:59 06:59 Intake Total 2034 3241 860 Output Total 995 910 300 Balance 1039 2331 560 - Physical Examination General/Neuro: alert & oriented x3 Neck: no JVD present Lungs: CTA (diminished at bases) Heart: RRR Abdomen: soft Extremities: other: (2+ pitting BLE edema) - Telemetry Telemetry Rhythm: SR 90-100s - Labs Result Diagrams: 03/09/18 23:59 03/10/18 00:21 Troponin/CKMB CK-MB (CK-2) 28.7 ng/mL (0-6.6) H* 03/05/18 18:07 Troponin I 162.370 ng/mL (< 0.028) H* 03/06/18 07:44 - Assessment/Plan 1. S/P Anterior [place] - Stable with Coreg, ASA, Statin. Pt will need a cath as soon as her renal function is stable. 2. Acute renal insufficiency on CKD stage 3 - worsening today. Nephrology following. 3. DKA - per primary service. Pt. poorly controlled. Noncompliant likely at home. 4. Severe CMY, ischemic - She will need a cath and likely a Life-Vest on d/c. She will need to be compliant with F/U. 5. HTN - stable 6. UTI - Managed by PCP 7. Anemia - Receiving 2 units of PRBCs today. 8. Current smoker - smoking cessation education given to the pt. 9. Hyperlipidemia - on Statin. 10. Non-compliance with diet and medication regimen - education given to the pt. MAR reviewed Review of Systems - Review of Systems Constitutional: reports: no symptoms reported EENTM: reports: no symptoms reported Respiratory: reports: no symptoms reported Cardiac (ROS): reports: no symptoms reported ABD/GI: reports: no symptoms reported : reports: no symptoms reported Musculoskeletal: reports: no symptoms reported <Souleymane Robledo - Last Filed: 03/10/18 16:53> Cardiology Progress Note - Objective Vital Signs Temp Pulse Resp 03/10/18 16:00 98.4 F 03/10/18 11:00 98.9 F 03/10/18 08:00 98.5 F 92 19 Admit Weight 169 lb Weight 179 lb 3.773 oz 03/09/18 03/10/18 03/11/18 06:59 06:59 06:59 Intake Total 2034 3241 860 Output Total 995 910 500 Balance 1039 2331 360 - Labs Result Diagrams: 03/09/18 23:59 03/10/18 00:21 Troponin/CKMB CK-MB (CK-2) 28.7 ng/mL (0-6.6) H* 03/05/18 18:07 Troponin I 162.370 ng/mL (< 0.028) H* 03/06/18 07:44 - Assessment/Plan Pt. seen and eval. by me. I agree with the A/P by the [employer]. It will be advisable to do a cardiac cath prior to d/c if this is feasible. With the decr. reanal function she could develop complete renal failure requiring dialysis,
[2018-03-10] MEDS: Nicotine 14 MG PATCH TOP SCH (16:10)
[2018-03-10] MEDS ORDERED: Furosemide 100 MG in Sodium Chloride 0.9% 90 ML IVPB SCH (17:30)
--- NOTE | 2018-03-10 19:05 | PRG ---
DATE OF SERVICE: 03/10/2018 SUBJECTIVE: A 52-year-old female being seen for acute kidney injury. The patient denies any nausea or vomiting. States she feels better. OBJECTIVE: GENERAL: The patient is awake and alert. VITAL SIGNS: Afebrile, pulse 84, breathing at 16, blood pressure 133/76. GENERAL APPEARANCE AND MENTAL STATUS: Fair. HEAD/NECK: Normocephalic. Atraumatic. EYES: EOMI. No deformity. EARS: Clear. No ulcers. NOSE: Intact. No lesions. MOUTH: Clear. No discharge. THROAT: Clear. No exudate. LUNGS: Clear. No crackles. CARDIAC: S1, S2. No rub. ABDOMEN: Benign. BS+. GENITALIA/RECTUM: Loo absent. BACK/EXTREMITIES: Edema 0+ Ulcer-. NEUROLOGICAL: Alert and motor intact. SKIN: Rash- Bruise-. LYMPHATICS: Edema- Ulcer-. LABORATORY DATA: Show hemoglobin 9.5. Creatinine 2.4. ASSESSMENT AND RECOMMENDATIONS: 1. Acute kidney injury with chronic kidney disease, stage 4, stable. 2. Hypertension, stable. 3. Anemia, stable. 4. Chronic kidney disease due to cardiorenal syndrome. Prognosis is poor.
[2018-03-11] MEDS: Lidocaine 5% Patch TD SCH (00:34)
[2018-03-11] MEDS: Insulin Regular 300 UNITS/3 ML VIAL SC PRN ×2 (01:05→12:37)
[2018-03-11 06:36] LABS: Anion Gap 20 mmol/L (10-20); BUN (Urea Nitrogen) 47 mg/dL (9.8-20.1); Calc. Creatinine Clearance 34 mL/min (70-130); Calcium 8.7 mg/dL (7.8-10.44); Carbon Dioxide 13 mmol/L (22-29); Chloride 110 mmol/L (98-107); Estimated GFR-MDRD 20; Glucose 250 mg/dL (70-105); Potassium 5.8 mmol/L (3.5-5.1); Sodium 137 mmol/L (136-145)
[2018-03-11] MEDS ORDERED: Eucerin (Mineral Oil/Petrolatum,White) 30 gm Jar TOP PRN (07:58)
[2018-03-11] MEDS ORDERED: Calcium Carbonate 500 MG ChewTAB PO PRN (07:58)
[2018-03-11] MEDS ORDERED: Temazepam 15 MG CAP PO PRN (07:58)
[2018-03-11] MEDS ORDERED: Chloraseptic Spray 180 ml Bottle PO PRN (07:58)
[2018-03-11] MEDS ORDERED: Artificial Tears 18 DROP/0.9 ML EA EYE PRN (07:58)
[2018-03-11] MEDS ORDERED: Sodium Chloride 0.65% Nasal 44 ML BOT EA NARE PRN (07:58)
[2018-03-11] MEDS ORDERED: Diabetic Tussin 200 MG/10 ML UDCUP PO PRN (07:58)
[2018-03-11] MEDS: Insulin Glargine 20 UNITS in Pre-Filled Syringe 1 EACH SC SCH (08:38)
[2018-03-11] MEDS: Fluconazole 100 MG TAB PO SCH (08:38)
[2018-03-11] MEDS: Ferrous Sulfate 325 MG TAB PO SCH (08:39)
[2018-03-11] MEDS: Aspirin 81 mg Enteric Coated Tablet PO SCH (08:39)
[2018-03-11] MEDS: Atorvastatin Calcium 40 MG TAB PO SCH (08:39)
[2018-03-11] MEDS: Saccharomyces boulardii 250 MG CAP PO SCH (08:39)
[2018-03-11] MEDS: Gabapentin 100 MG CAP PO SCH ×3 (08:39→21:15)
[2018-03-11] MEDS ORDERED: Furosemide 20 MG TAB PO SCH (09:00)
[2018-03-11] MEDS ORDERED: Insulin Glargine 25 UNITS in Pre-Filled Syringe 1 EACH SC SCH (09:00)
[2018-03-11 10:59] LABS: Anion Gap 16 mmol/L (10-20); BUN (Urea Nitrogen) 46 mg/dL (9.8-20.1); Calc. Creatinine Clearance 35 mL/min (70-130); Calcium 8.6 mg/dL (7.8-10.44); Carbon Dioxide 19 mmol/L (22-29); Chloride 103 mmol/L (98-107); Estimated GFR-MDRD 21; Glucose 306 mg/dL (70-105); Potassium 4.9 mmol/L (3.5-5.1); Sodium 133 mmol/L (136-145)
[2018-03-11] MEDS ORDERED: Sodium Bicarbonate Tab 325 MG TAB PO SCH (11:00)
--- NOTE | 2018-03-11 11:23 | PDOC.PN ---
- Subjective Encounter Start Date: 03/11/18 Encounter Start Time: 07:40 pt has more edema leg with blister, she is ready for cath even if she end up with dialysis - Objective Resuscitation Status: Resuscitation Status FULL:Full Resuscitation MAR Reviewed: Yes Vital Signs & Weight: Vital Signs (12 hours) Temp Pulse Resp BP BP Pulse Ox 03/11/18 07:59 98.1 F 114 H 20 176/84 H 96 03/11/18 04:00 98.2 F 108 H 18 152/84 H 97 Weight Admit Weight 169 lb Weight 181 lb 14.4 oz Most Recent Monitor Data Heart Rate from ECG 94 NIBP 130/85 NIBP BP-Mean 107 Respiration from ECG 18 SpO2 99 I&O: 03/10/18 03/11/18 03/12/18 06:59 06:59 06:59 Intake Total 3241 1440 Output Total 910 2215 Balance 2331 -775 Result Diagrams: 03/09/18 23:59 03/11/18 10:12 Additional Labs: Accuchecks 03/11/18 03/11/18 03/11/18 10:41 05:34 03:29 POC Glucose 298 H 262 H 289 H 03/11/18 03/10/18 03/10/18 00:44 20:43 16:50 POC Glucose 334 H 280 H 177 H 03/10/18 11:42 POC Glucose 133 H EKG Reviewed by me: Yes (nsr) Phys Exam - Physical Examination Constitutional: NAD HEENT: PERRLA, moist MMs, sclera anicteric Neck: no JVD, supple Respiratory: no wheezing, no rhonchi reduced air entry at base Cardiovascular: RRR, no significant murmur, no rub Gastrointestinal: soft, non-tender, no distention, positive bowel sounds Musculoskeletal: pulses present, edema present Neurological: non-focal, normal sensation Lymphatic: no nodes Psychiatric: normal affect, A&O x 3 Skin: no rash, normal turgor Dx/Plan (1) Acute renal failure superimposed on stage 3 chronic kidney disease Code(s): N17.9 - ACUTE KIDNEY FAILURE, UNSPECIFIED; N18.3 - CHRONIC KIDNEY DISEASE, STAGE 3 (MODERATE) Status: Acute (2) Acute systolic ACC/AHA stage C congestive heart failure Code(s): I50.21 - ACUTE SYSTOLIC (CONGESTIVE) HEART FAILURE Status: Acute (3) Hypoglycemia associated with type 2 diabetes mellitus Code(s): E11.649 - TYPE 2 DIABETES MELLITUS WITH HYPOGLYCEMIA WITHOUT COMA Status: Acute (4) UTI (urinary tract infection) Status: Acute (5) Anemia, normocytic normochromic Code(s): D64.9 - ANEMIA, UNSPECIFIED Status: Chronic (6) HTN (hypertension) Code(s): I10 - ESSENTIAL (PRIMARY) HYPERTENSION Status: Chronic (7) Hyperlipidemia Code(s): E78.5 - HYPERLIPIDEMIA, UNSPECIFIED Status: Chronic (8) Noncompliance with diet and medication regimen Code(s): Z91.11 - PATIENT'S NONCOMPLIANCE WITH DIETARY REGIMEN; Z91.14 - PATIENT 'S OTHER NONCOMPLIANCE WITH MEDICATION REGIMEN Status: Chronic (9) Peripheral neuropathy Code(s): G62.9 - POLYNEUROPATHY, UNSPECIFIED Status: Chronic (10) Tobacco abuse Code(s): Z72.0 - TOBACCO USE Status: Chronic (11) Type II diabetes mellitus Status: Chronic (12) DKA, type 2 Code(s): E11.10 - TYPE 2 DIABETES MELLITUS WITH KETOACIDOSIS WITHOUT COMA Status: Resolved (13) Anemia Code(s): D64.9 - ANEMIA, UNSPECIFIED Status: Acute - Plan cont current plan of care, plan discussed w/ family * currently on lasix drip * today renal function started improving * sodium is better * today will increase lantus insulin for diabetes control * cath will defer to cardiology * medication reviewed as below * symptomatic treatment * discussed with family * monitor renal function * she will need lot of diuresis * will check urine protein creatinine ratio. Review of Systems - Review of Systems Eyes: negative: Pain, Vision Change, Conjunctivae Inflammation, Eyelid Inflammation, Redness, Other ENT: negative: Ear Pain, Ear Discharge, Nose Pain, Nose Discharge, Nose Congestion, Mouth Pain, Mouth Swelling, Throat Pain, Throat Swelling, Other Respiratory: SOB with Excertion. negative: Cough, Dry, Shortness of Breath, Hemoptysis, Pleuritic Pain, Sputum, Wheezing Cardiovascular: edema. negative: chest pain, palpitations, orthopnea, paroxysmal nocturnal dyspnea, light headedness, other Gastrointestinal: negative: Nausea, Vomiting, Abdominal Pain, Diarrhea, Constipation, Melena, Hematochezia, Other Genitourinary: negative: Dysuria, Frequency, Incontinence, Hematuria, Retention , Other Musculoskeletal: negative: Neck Pain, Shoulder Pain, Arm Pain, Back Pain, Hand Pain, Leg Pain, Foot Pain, Other Skin: negative: Rash, Lesions, Jan, Bruising, Other - Medications/Allergies Allergies/Adverse Reactions: Allergies Allergy/AdvReac Type Severity Reaction Status Date / Time camphor Allergy Verified 12/03/17 22:05 ciprofloxacin [From Cipro] Allergy Verified 12/03/17 22:05 hydralazine Allergy Verified 07/17/17 14:46 insulin lispro Allergy Verified 03/07/18 17:34 [From Humalog Mix] insulin lispro protamine Allergy Verified 03/07/18 17:34 [From Humalog Mix] naproxen [From Naprosyn] Allergy Verified 07/17/17 14:46 Medications: Current Medications Acetaminophen (Tylenol) 650 mg PO Q4H PRN PRN Reason: Headache/Fever or Pain Last Admin: 03/09/18 07:52 Dose: 650 mg Hydrocodone Bitart/Acetaminophen ([place] 5/325) 1 tab PO Q4H PRN PRN Reason: Moderate Pain (4-6) Artificial Tears (Tears Naturale) 0 drop EA EYE PRN PRN PRN Reason: Dry Eyes Aspirin (Ecotrin) 81 mg PO DAILY [facility] Last Admin: 03/11/18 08:39 Dose: 81 mg Atorvastatin Calcium (Lipitor) 40 mg PO DAILY [facility] Last Admin: 03/11/18 08:39 Dose: 40 mg Bisacodyl (Dulcolax) 10 mg PO DAILYPRN PRN PRN Reason: Constipation Calcium Carbonate (Tums) 1,000 mg PO Q4H PRN PRN Reason: Heartburn or Indigestion Dextrose/Water (Dextrose 50%) 25 gm SLOW IVP PRN PRN PRN Reason: Hypoglycemia Last Admin: 03/07/18 12:26 Dose: 25 gm Ferrous Sulfate (Feosol) 325 mg PO QAM-[facility] Last Admin: 03/11/18 08:39 Dose: 325 mg Fluconazole (Diflucan) 100 mg PO DAILY [facility] Last Admin: 03/11/18 08:38 Dose: 100 mg Gabapentin (Neurontin) 100 mg PO TID [facility] Last Admin: 03/11/18 08:39 Dose: 100 mg Glucagon (Glucagon) 1 mg IM PRN PRN PRN Reason: Hypoglycemia Guaifenesin (Robitussin Sf) 200 mg PO Q4H PRN PRN Reason: Cough Dextrose/Water (D5w) 1,000 mls @ 0 mls/hr IV .Q0M PRN PRN Reason: Hypoglycemia Furosemide 100 mg/ Sodium (Chloride) 100 mls @ 5 mls/hr IVPB INF [facility] Stop: 03/11/18 18:00 Last Admin: 03/10/18 17:50 Dose: 100 mls Insulin Glargine 25 units/ (Miscellaneous Medication) 0.25 mls @ 0 mls/hr SC HS [facility] Insulin Glargine 25 units/ (Miscellaneous Medication) 0.25 mls @ 0 mls/hr SC QAM [facility] Last Admin: 03/11/18 08:40 Dose: Not Given Insulin Human Regular (Humulin R) 0 units SC .AGGRESSIVE SLIDING PRN PRN Reason: Aggressive Sliding Scale Last Admin: 03/10/18 06:05 Dose: 11 unit Insulin Human Regular (Humulin R) 0 units SC .BEDTIME SLIDING SC PRN PRN Reason: Bedtime Correctional Scale Last Admin: 03/11/18 01:05 Dose: 4 unit Isosorbide Mononitrate (Imdur Er) 30 mg PO DAILY [facility] Last Admin: 03/11/18 08:38 Dose: 30 mg Lactulose (Lactulose) 20 gm PO DAILYPRN PRN PRN Reason: Constipation Lidocaine (Lidoderm 5% Patch) 1 patch TD 2359 [facility] Last Admin: 03/11/18 00:34 Dose: 1 patch Mineral Oil/White Petrolatum (Eucerin Cream) 0 gm TOP BIDPRN PRN PRN Reason: Dry Skin Miscellaneous Medication (Lidocaine Patch Removal) 1 each TOP 1200 [facility] Last Admin: 03/10/18 13:35 Dose: Not Given Nicotine (Nicoderm Patch) 14 mg TOP Q24HR [facility] Last Admin: 03/10/18 16:10 Dose: 14 mg Ccu Electrolyte (Replacement Protocol) 0 each FS PRN PRN PRN Reason: FOR ELECTROLYTE REPLACEMENT Ondansetron HCl (Zofran Odt) 4 mg PO Q6H PRN PRN Reason: Nausea/Vomiting Ondansetron HCl (Zofran) 4 mg IVP Q6H PRN PRN Reason: Nausea/Vomiting Last Admin: 03/06/18 12:36 Dose: 4 mg Pantoprazole Sodium (Protonix) 40 mg PO DAILY [facility] Last Admin: 03/11/18 08:39 Dose: 40 mg Phenol (Chloraseptic [place] 180 Ml Bot) 0 ml PO PRN PRN PRN Reason: Sore Throat Saccharomyces Boulardii (Florastor) 250 mg PO DAILY [facility] Last Admin: 03/11/18 08:39 Dose: 250 mg Sodium Bicarbonate (Bicarbonate, Sodium) 975 mg PO TID [facility] Sodium Bicarbonate (Bicarbonate, Sodium) 975 mg PO NOW [facility] Stop: 03/11/18 12:00 Sodium Chloride (Flush - Normal Saline) 10 ml IVF Q12HR [facility] Last Admin: 03/10/18 21:40 Dose: 10 ml Sodium Chloride (Flush - Normal Saline) 10 ml IVF PRN PRN PRN Reason: Saline Flush Sodium Chloride ([place] Nasal [place] 0.65%) 0 ml EA NARE QIDPRN PRN PRN Reason: Nasal Congestion Temazepam (Restoril) 15 mg PO HSPRN PRN PRN Reason: Insomnia
--- NOTE | 2018-03-11 11:35 | PDOC.CTH ---
<Pattie Chapman - Last Filed: 03/11/18 11:33> Cardiology Progress Note - Subjective the pt seen and examined. No overnight events. No cardiac complaints. She was instructed to raise her BLE while resting. - Objective Vital Signs Temp Pulse Resp BP BP Pulse Ox 03/11/18 07:59 98.1 F 114 H 20 176/84 H 96 03/11/18 04:00 98.2 F 108 H 18 152/84 H 97 Admit Weight 169 lb Weight 181 lb 14.4 oz 03/10/18 03/11/18 03/12/18 06:59 06:59 06:59 Intake Total 3241 1440 Output Total 910 2215 Balance 2331 -775 - Physical Examination General/Neuro: alert & oriented x3 Neck: no JVD present Lungs: other: (coarses and diminished at bases) Heart: RRR Abdomen: soft Extremities: other: (4+ pitting BLE edema) - Telemetry Telemetry Rhythm: SR - Labs Result Diagrams: 03/09/18 23:59 03/11/18 10:12 Troponin/CKMB CK-MB (CK-2) 28.7 ng/mL (0-6.6) H* 03/05/18 18:07 Troponin I 162.370 ng/mL (< 0.028) H* 03/06/18 07:44 - Assessment/Plan 1. S/P Anterior OK - Stable with Coreg, ASA, Statin. Pt will need a cath as soon as her renal function is stable. 2. Acute renal insufficiency on CKD stage 4 - better today. Nephrology following. 3. DKA - per primary service. Pt. poorly controlled. Noncompliant likely at home. 4. Severe CMY, ischemic - On Lasix IV drip 5mg/h, managed by Traffic Engineering Technician. She will need a cath and likely a Life-Vest on d/c. She will need to be compliant with F/U. 5. HTN - stable 6. UTI - Managed by PCP 7. Anemia - Receiving 2 units of PRBCs on 03/09/18. 8. Current smoker - smoking cessation education given to the pt. 9. Hyperlipidemia - on Statin. 10. Non-compliance with diet and medication regimen - education given to the pt. MAR reviewed Review of Systems - Review of Systems Constitutional: reports: no symptoms reported EENTM: reports: no symptoms reported Respiratory: reports: no symptoms reported Cardiac (ROS): reports: no symptoms reported ABD/GI: reports: no symptoms reported : reports: no symptoms reported Musculoskeletal: reports: no symptoms reported Skin: reports: no symptoms reported Neurological: reports: no symptoms reported <RobledoSouleymane Willie - Last Filed: 03/11/18 17:50> Cardiology Progress Note - Objective Vital Signs Temp Pulse Pulse Pulse Resp BP BP 03/11/18 10:15 111 H 113 H 162/89 H 135/89 03/11/18 07:59 98.1 F 114 H 20 BP Pulse Ox 03/11/18 10:15 03/11/18 07:59 176/84 H 96 Admit Weight 169 lb Weight 181 lb 14.4 oz 03/10/18 03/11/18 03/12/18 06:59 06:59 06:59 Intake Total 3241 1440 Output Total 910 2215 Balance 2331 -415 - Labs Result Diagrams: 03/09/18 23:59 03/11/18 10:12 Troponin/CKMB CK-MB (CK-2) 28.7 ng/mL (0-6.6) H* 03/05/18 18:07 Troponin I 162.370 ng/mL (< 0.028) H* 03/06/18 07:44 - Assessment/Plan Pt. seen and eval. by me. I agree with the A/P by the CARD PLACER. Plan for cath in AM. Pt. is noncompliant. prognosis is poor. Will nee a Life-vest on d/c likey.
--- NOTE | 2018-03-11 11:49 | PRG ---
DATE OF SERVICE: 03/11/2018 SUBJECTIVE: The patient is doing reasonably well, has no acute complaints. PHYSICAL EXAMINATION: VITAL SIGNS: Temperature is 98.2, pulse 108, respirations 18, O2 sat 97% on room air, blood pressure 152/84. HEENT: Unremarkable. NECK: No JVD. LUNGS: Clear without wheezing. CARDIAC: S1 and S2 regular. ABDOMEN: Soft. EXTREMITIES: No edema. LABORATORY DATA: Sodium 137, potassium 5.8, chloride 110, CO2 13, BUN 47, creatinine 2.5, glucose 25 0. ASSESSMENT: 1. Status post diabetic ketoacidosis/hyperosmolar state. 2. Type 1 diabetes mellitus with poorly controlled blood sugars. 3. Congestive heart failure. 4. Acute on chronic renal insufficiency. PLAN: The patient is currently on a Lasix drip. The main problems now have to do with some cardiac and renal status. No further pulmonary recommendations. We will sign off.
--- NOTE | 2018-03-11 12:35 | ULT ---
RENAL ULTRASOUND: HISTORY: Acute kidney insufficiency. COMPARISON: 10/31/2017 TECHNIQUE: Sagittal and transverse imaging of the kidneys is performed. FINDINGS: Incidental right-sided pleural effusion. Bilaterally, no hydronephrosis. Symmetric and appropriate cortical echotexture. The right kidney measures 6.3 x 4.9 x 11.3 cm. The left kidney measures 10.3 x 6.6 x 5.3 cm. The urinary bladder is decompressed due to Loo catheterization. IMPRESSION: No hydronephrosis. POS: THAD
[2018-03-11] MEDS: Lidocaine Patch Removal 1 EACH TOP SCH (12:36)
[2018-03-11] MEDS: Nicotine 14 MG PATCH TOP SCH (12:37)
--- NOTE | 2018-03-11 15:55 | PRG ---
DATE OF SERVICE: 03/11/2018 SUBJECTIVE: This is a 52-year-old female being seen for acute kidney injury and congestive heart evangelina lure. The patient denies any nausea, vomiting, or chest pain. PHYSICAL EXAMINATION: GENERAL: Patient is awake and alert. VITAL SIGNS: Afebrile, pulse 78, respiratory rate 16, blood pressure 152/84. GENERAL APPEARANCE AND MENTAL STATUS: Fair. HEAD/NECK: Normocephalic. Atraumatic. EYES: EOMI. No deformity. EARS: Clear. No ulcers. NOSE: Intact. No lesions. MOUTH: Clear. No discharge. THROAT: Clear. No exudate. LUNGS: Clear. No crackles. CARDIAC: S1, S2. No rub. ABDOMEN: Benign. BS+. GENITALIA/RECTUM: Loo absent. BACK/EXTREMITIES: Edema 0+ Ulcer- NEUROLOGICAL: Alert and motor intact. SKIN: Rash- Bruise- LABORATORY DATA: Hemoglobin 9.5, creatinine 2.5. ASSESSMENT AND PLAN: 1. Chronic kidney disease stage 4, stable. 2. Hypertension, stable. 3. Congestive heart failure and edema. I will continue Lasix drip until 5 p.m. 4. Hyperkalemia. We will recheck potassium. 5. Metabolic acidosis. Start sodium bicarbonate 975 t.i.d.
[2018-03-11] MEDS: Sodium Bicarbonate Tab 325 MG TAB PO SCH ×2 (17:08→21:15)
[2018-03-11 17:33] LABS: Creatinine, Urine Less than 20.00 mg/dL (47-110)
[2018-03-11] MEDS ORDERED: Communication Order-Pharmacy FS SCH (17:45)
[2018-03-11 17:46] LABS: Protein, Urine Random Quant 210 mg/dL (1-14)
[2018-03-11] MEDS: Insulin Glargine 25 UNITS in Pre-Filled Syringe 1 EACH SC SCH (21:16)
[2018-03-12 00:08] LABS: Hemoglobin 9.6 g/dL (12.0-16.0); Platelet Count 345 thou/uL (130-400)
[2018-03-12] MEDS: Insulin Regular 300 UNITS/3 ML VIAL SC PRN (00:16)
[2018-03-12] MEDS: Lidocaine 5% Patch TD SCH (00:19)
[2018-03-12 06:13] LABS: Anion Gap 14 mmol/L (10-20); BUN (Urea Nitrogen) 46 mg/dL (9.8-20.1); Calc. Creatinine Clearance 38 mL/min (70-130); Calcium 8.3 mg/dL (7.8-10.44); Carbon Dioxide 20 mmol/L (22-29); Chloride 108 mmol/L (98-107); Estimated GFR-MDRD 23; Glucose 183 mg/dL (70-105); Potassium 4.5 mmol/L (3.5-5.1); Sodium 137 mmol/L (136-145)
[2018-03-12] MEDS: Sodium Bicarbonate Tab 325 MG TAB PO SCH ×3 (06:22→20:39)
[2018-03-12] MEDS: Ferrous Sulfate 325 MG TAB PO SCH (06:23)
[2018-03-12] MEDS: Saccharomyces boulardii 250 MG CAP PO SCH (06:23)
[2018-03-12] MEDS: Atorvastatin Calcium 40 MG TAB PO SCH (06:23)
[2018-03-12] MEDS: Aspirin 81 mg Enteric Coated Tablet PO SCH (06:23)
[2018-03-12] MEDS: Fluconazole 100 MG TAB PO SCH (06:23)
[2018-03-12] MEDS: Gabapentin 100 MG CAP PO SCH ×3 (06:23→20:39)
[2018-03-12] MEDS ORDERED: Iopamidol 370 76% 100 ML VIAL ONE (08:35)
[2018-03-12] MEDS ORDERED: Iopamidol 370 76% 50 ML VIAL FS ONE (08:35)
[2018-03-12] MEDS: Carvedilol 3.125 MG TAB PO SCH ×2 (09:10→20:39)
[2018-03-12] MEDS ORDERED: Lidocaine 1% (PF) 30 ML VIAL ONE (09:36)
--- NOTE | 2018-03-12 10:00 | PDOC.PN ---
- Subjective Encounter Start Date: 03/12/18 Encounter Start Time: 07:20 Patient seen and examined. No new complaints. No overnight events pt still has lot of leg edema, has puffines of face - Objective Resuscitation Status: Resuscitation Status FULL:Full Resuscitation MAR Reviewed: Yes Vital Signs & Weight: Vital Signs (12 hours) Temp Pulse Resp BP BP Pulse Ox 03/12/18 08:00 98.2 F 110 H 14 146/80 H 93 L 03/12/18 04:34 98.1 F 107 H 18 132/88 92 L Weight Admit Weight 169 lb Weight 181 lb 14.4 oz Most Recent Monitor Data Heart Rate from ECG 94 NIBP 130/85 NIBP BP-Mean 107 Respiration from ECG 18 SpO2 99 I&O: 03/11/18 03/12/18 03/13/18 06:59 06:59 06:59 Intake Total 1440 1575 Output Total 2215 3200 Balance -057 -8837 Result Diagrams: 03/11/18 23:45 03/12/18 05:33 Additional Labs: Accuchecks 03/11/18 03/11/18 03/11/18 23:48 20:18 16:51 POC Glucose 375 H 159 H 92 03/11/18 03/11/18 10:41 05:34 POC Glucose 298 H 262 H EKG Reviewed by me: Yes (sinus tachycardia) Phys Exam - Physical Examination Constitutional: NAD HEENT: PERRLA, moist MMs, sclera anicteric Neck: no JVD, supple Respiratory: no wheezing, no rhonchi reduced air entry at base Cardiovascular: RRR, no significant murmur, no rub tachycardia Gastrointestinal: soft, non-tender, no distention, positive bowel sounds abdominal wall edema Musculoskeletal: pulses present, edema present Neurological: non-focal, normal sensation, moves all 4 limbs Lymphatic: no nodes Psychiatric: normal affect, A&O x 3 Skin: no rash, normal turgor Dx/Plan (1) Acute renal failure superimposed on stage 3 chronic kidney disease Code(s): N17.9 - ACUTE KIDNEY FAILURE, UNSPECIFIED; N18.3 - CHRONIC KIDNEY DISEASE, STAGE 3 (MODERATE) Status: Acute (2) Acute systolic ACC/AHA stage C congestive heart failure Code(s): I50.21 - ACUTE SYSTOLIC (CONGESTIVE) HEART FAILURE Status: Acute (3) Hypoglycemia associated with type 2 diabetes mellitus Code(s): E11.649 - TYPE 2 DIABETES MELLITUS WITH HYPOGLYCEMIA WITHOUT COMA Status: Acute (4) UTI (urinary tract infection) Status: Acute (5) Anemia, normocytic normochromic Code(s): D64.9 - ANEMIA, UNSPECIFIED Status: Chronic (6) HTN (hypertension) Code(s): I10 - ESSENTIAL (PRIMARY) HYPERTENSION Status: Chronic (7) Hyperlipidemia Code(s): E78.5 - HYPERLIPIDEMIA, UNSPECIFIED Status: Chronic (8) Noncompliance with diet and medication regimen Code(s): Z91.11 - PATIENT'S NONCOMPLIANCE WITH DIETARY REGIMEN; Z91.14 - PATIENT 'S OTHER NONCOMPLIANCE WITH MEDICATION REGIMEN Status: Chronic (9) Peripheral neuropathy Code(s): G62.9 - POLYNEUROPATHY, UNSPECIFIED Status: Chronic (10) Tobacco abuse Code(s): Z72.0 - TOBACCO USE Status: Chronic (11) Type II diabetes mellitus Status: Chronic (12) DKA, type 2 Code(s): E11.10 - TYPE 2 DIABETES MELLITUS WITH KETOACIDOSIS WITHOUT COMA Status: Resolved (13) Anemia Code(s): D64.9 - ANEMIA, UNSPECIFIED Status: Acute (14) Anasarca associated with disorder of kidney Code(s): N04.9 - NEPHROTIC SYNDROME WITH UNSPECIFIED MORPHOLOGIC CHANGES Status: Acute (15) Nephrotic syndrome due to diabetes mellitus Code(s): E11.21 - TYPE 2 DIABETES MELLITUS WITH DIABETIC NEPHROPATHY Status: Acute - Plan cont current plan of care, plan discussed w/ family, continue antibiotics * pt has anasarca likely due to nephrotic syndrome, nephrology on case * today plan for cardiac cath * repeat labs tomorrow * medication reviewed as below * symptomatic treatment * discussed with family about plan of care * will need lifevest before discharge. Review of Systems - Review of Systems Eyes: negative: Pain, Vision Change, Conjunctivae Inflammation, Eyelid Inflammation, Redness, Other ENT: negative: Ear Pain, Ear Discharge, Nose Pain, Nose Discharge, Nose Congestion, Mouth Pain, Mouth Swelling, Throat Pain, Throat Swelling, Other Respiratory: negative: Cough, Dry, Shortness of Breath, Hemoptysis, SOB with Excertion, Pleuritic Pain, Sputum, Wheezing Cardiovascular: edema. negative: chest pain, palpitations, orthopnea, paroxysmal nocturnal dyspnea, light headedness, other Gastrointestinal: negative: Nausea, Vomiting, Abdominal Pain, Diarrhea, Constipation, Melena, Hematochezia, Other Genitourinary: negative: Dysuria, Frequency, Incontinence, Hematuria, Retention , Other Musculoskeletal: negative: Neck Pain, Shoulder Pain, Arm Pain, Back Pain, Hand Pain, Leg Pain, Foot Pain, Other - Medications/Allergies Allergies/Adverse Reactions: Allergies Allergy/AdvReac Type Severity Reaction Status Date / Time camphor Allergy Verified 12/03/17 22:05 ciprofloxacin [From Cipro] Allergy Verified 12/03/17 22:05 hydralazine Allergy Verified 07/17/17 14:46 insulin lispro Allergy Verified 03/07/18 17:34 [From Humalog Mix] insulin lispro protamine Allergy Verified 03/07/18 17:34 [From Humalog Mix] naproxen [From Naprosyn] Allergy Verified 07/17/17 14:46 Medications: Current Medications Acetaminophen (Tylenol) 650 mg PO Q4H PRN PRN Reason: Headache/Fever or Pain Last Admin: 03/09/18 07:52 Dose: 650 mg Hydrocodone Bitart/Acetaminophen ([place] 5/325) 1 tab PO Q4H PRN PRN Reason: Moderate Pain (4-6) Artificial Tears (Tears Naturale) 0 drop EA EYE PRN PRN PRN Reason: Dry Eyes Aspirin (Ecotrin) 81 mg PO DAILY [facility] Last Admin: 03/12/18 06:23 Dose: 81 mg Atorvastatin Calcium (Lipitor) 40 mg PO DAILY [facility] Last Admin: 03/12/18 06:23 Dose: 40 mg Bisacodyl (Dulcolax) 10 mg PO DAILYPRN PRN PRN Reason: Constipation Calcium Carbonate (Tums) 1,000 mg PO Q4H PRN PRN Reason: Heartburn or Indigestion Carvedilol (Coreg) 3.125 mg PO BID [facility] Last Admin: 03/12/18 09:10 Dose: 3.125 mg Dextrose/Water (Dextrose 50%) 25 gm SLOW IVP PRN PRN PRN Reason: Hypoglycemia Last Admin: 03/07/18 12:26 Dose: 25 gm Ferrous Sulfate (Feosol) 325 mg PO QAM-[facility] Last Admin: 03/12/18 06:23 Dose: 325 mg Fluconazole (Diflucan) 100 mg PO DAILY [facility] Last Admin: 03/12/18 06:23 Dose: 100 mg Gabapentin (Neurontin) 100 mg PO TID [facility] Last Admin: 03/12/18 06:23 Dose: 100 mg Glucagon (Glucagon) 1 mg IM PRN PRN PRN Reason: Hypoglycemia Guaifenesin (Robitussin Sf) 200 mg PO Q4H PRN PRN Reason: Cough Dextrose/Water (D5w) 1,000 mls @ 0 mls/hr IV .Q0M PRN PRN Reason: Hypoglycemia Insulin Glargine 25 units/ (Miscellaneous Medication) 0.25 mls @ 0 mls/hr SC HS [facility] Last Admin: 03/11/18 21:16 Dose: 0.25 mls Insulin Glargine 25 units/ (Miscellaneous Medication) 0.25 mls @ 0 mls/hr SC QAM [facility] Insulin Human Regular (Humulin R) 0 units SC .AGGRESSIVE SLIDING PRN PRN Reason: Aggressive Sliding Scale Last Admin: 03/11/18 12:37 Dose: 9 unit Insulin Human Regular (Humulin R) 0 units SC .BEDTIME SLIDING SC PRN PRN Reason: Bedtime Correctional Scale Last Admin: 03/12/18 00:16 Dose: 5 unit Isosorbide Mononitrate (Imdur Er) 30 mg PO DAILY [facility] Last Admin: 03/12/18 06:22 Dose: 30 mg Lactulose (Lactulose) 20 gm PO DAILYPRN PRN PRN Reason: Constipation Lidocaine (Lidoderm 5% Patch) 1 patch TD 4309 [facility] Last Admin: 03/12/18 00:19 Dose: Not Given Mineral Oil/White Petrolatum (Eucerin Cream) 0 gm TOP BIDPRN PRN PRN Reason: Dry Skin Miscellaneous Information (Communication Order-Pharmacy) 0 each FS ONE [facility] Stop: 03/12/18 17:46 Miscellaneous Medication (Lidocaine Patch Removal) 1 each TOP 1200 [facility] Last Admin: 03/11/18 12:36 Dose: 1 each Nicotine (Nicoderm Patch) 14 mg TOP Q24HR [facility] Last Admin: 03/11/18 12:37 Dose: Not Given Ondansetron HCl (Zofran Odt) 4 mg PO Q6H PRN PRN Reason: Nausea/Vomiting Ondansetron HCl (Zofran) 4 mg IVP Q6H PRN PRN Reason: Nausea/Vomiting Last Admin: 03/06/18 12:36 Dose: 4 mg Pantoprazole Sodium (Protonix) 40 mg PO DAILY [facility] Last Admin: 03/12/18 06:24 Dose: 40 mg Phenol (Chloraseptic [place] 180 Ml Bot) 0 ml PO PRN PRN PRN Reason: Sore Throat Saccharomyces Boulardii (Florastor) 250 mg PO DAILY [facility] Last Admin: 03/12/18 06:23 Dose: 250 mg Sodium Bicarbonate (Bicarbonate, Sodium) 975 mg PO TID [facility] Last Admin: 03/12/18 06:22 Dose: 975 mg Sodium Chloride (Flush - Normal Saline) 10 ml IVF Q12HR [facility] Last Admin: 03/12/18 06:24 Dose: 10 ml Sodium Chloride (Flush - Normal Saline) 10 ml IVF PRN PRN PRN Reason: Saline Flush Sodium Chloride ([place] Nasal [place] 0.65%) 0 ml EA NARE QIDPRN PRN PRN Reason: Nasal Congestion Temazepam (Restoril) 15 mg PO HSPRN PRN PRN Reason: Insomnia
[2018-03-12] MEDS ORDERED: Heparin 10,000 UNITS/1 ML VIAL ONE (11:23)
--- NOTE | 2018-03-12 11:26 | PRG ---
DATE OF SERVICE: 03/12/2018 SUBJECTIVE: This is a 52-year-old female being seen for acute kidney injury. The patient denies any nausea, vomiting or chest pain. PHYSICAL EXAMINATION: GENERAL: Patient is awake, alert. VITAL SIGNS: Afebrile, pulse 77, breathing 16, blood pressure 132/88. OBJECTIVE: See above. Awake, alert, in no acute distress. GENERAL APPEARANCE AND MENTAL STATUS: Fair. HEAD/NECK: Normocephalic. Atraumatic. EYES: EOMI. No deformity. EARS: Clear. No ulcers. NOSE: Intact. No lesions. MOUTH: Clear. No discharge. THROAT: Clear. No exudate. LUNGS: Clear. No crackles. CARDIAC: S1, S2. No rub. ABDOMEN: Benign. BS+. GENITALIA/RECTUM: Loo absent. BACK/EXTREMITIES: Edema 0+ Ulcer- NEUROLOGICAL: Alert and motor intact. SKIN: Rash- Bruise- LYMPHATICS: Edema- Ulcer- LABORATORY: Urine output was 2.2 liters yesterday and 3.2 liters today. Hemoglobin 9.6, potassium 4.5, creatinine 2.2. ASSESSMENT AND RECOMMENDATIONS: 1. Acute kidney injury, improved. 2. Chronic kidney disease stage 4, stable. 3. Hypertension, stable. 4. Anemia, stable. 5. Acute tubular necrosis and cardiorenal syndrome. No indication for dialysis.
[2018-03-12] MEDS ORDERED: TICAGRELOR 90 MG TABLET ONE (11:36)
[2018-03-12] MEDS ORDERED: HYDROcodone/Acetaminophen 5/325 mg Tablet ONE (12:34)
[2018-03-12] MEDS ORDERED: Nitroglycerin 0.4 MG TAB (25 Tab Bottle) SL PRN (15:24)
[2018-03-12] MEDS: Nicotine 14 MG PATCH TOP SCH (17:02)
[2018-03-12] MEDS: Lidocaine Patch Removal 1 EACH TOP SCH (17:07)
[2018-03-12] MEDS: Insulin Glargine 25 UNITS in Pre-Filled Syringe 1 EACH SC SCH (20:39)
[2018-03-12] MEDS: TICAGRELOR 90 MG TABLET PO SCH (20:40)
[2018-03-13] MEDS: Lidocaine 5% Patch TD SCH (01:02)
[2018-03-13 05:48] LABS: #Eosinphils 0.5 thou/uL (0.0-0.7); #Lymphocytes 1.6 thou/uL (1.20-3.40); #Neutrophils 4.9 thou/uL (1.40-6.50); %Basophils 0.4 % (0.0-1.0); %Eosinophils 5.8 % (0.0-10.0); %Lymphocytes 20.4 % (21.0-51.0); %Monocytes 12.2 % (0.0-10.0); %Neutrophils 61.2 % (42.0-75.0); Hemoglobin 8.2 g/dL (12.0-16.0); Mean Corpuscular HGB CONC 31.8 g/dL (32.0-36.0); Mean Corpuscular Hemoglobin 29.5 pg (27.0-31.0); Mean Corpuscular Volume 92.9 fL (78.0-98.0); Mean Platelet Volume 8.8 fL (7.4-10.4); Platelet Count 342 thou/uL (130-400); RBC Distribution Width 14.3 % (11.5-14.5); Red Blood Cell (RBC) Count 2.76 mill/uL (4.20-5.40)
[2018-03-13 06:02] LABS: ALT (SGPT) 43 U/L (8-55); AST (SGOT) 25 U/L (5-34); Albumin 2.3 g/dL (3.5-5.0); Alkaline Phosphatase 342 U/L (40-150); Anion Gap 14 mmol/L (10-20); BUN (Urea Nitrogen) 44 mg/dL (9.8-20.1); Bilirubin, Total Less than 0.2 mg/dL (0.2-1.2); Calc. Creatinine Clearance 42 mL/min (70-130); Calcium 7.8 mg/dL (7.8-10.44); Carbon Dioxide 20 mmol/L (22-29); Chloride 108 mmol/L (98-107); Estimated GFR-MDRD 26; Globulin 2.7 g/dL (2.4-3.5); Glucose 109 mg/dL (70-105); Phosphorus 4.3 mg/dL (2.3-4.7); Potassium 4.5 mmol/L (3.5-5.1); Sodium 137 mmol/L (136-145)
--- NOTE | 2018-03-13 09:50 | PDOC.PN ---
- Subjective Encounter Start Date: 03/13/18 Encounter Start Time: 09:30 Patient seen and examined. No new complaints. No overnight events per pt she had 2 stent placed but i do not see report - Objective Resuscitation Status: Resuscitation Status FULL:Full Resuscitation MAR Reviewed: Yes Vital Signs & Weight: Vital Signs (12 hours) Temp Pulse Resp BP BP Pulse Ox 03/13/18 08:00 97.8 F 88 18 135/81 96 03/13/18 03:44 97.7 F 96 112/74 96 Weight Admit Weight 169 lb 1.6 oz Weight 182 lb 9.6 oz Most Recent Monitor Data Heart Rate from ECG 94 NIBP 130/85 NIBP BP-Mean 107 Respiration from ECG 18 SpO2 99 I&O: 03/12/18 03/13/18 03/14/18 06:59 06:59 06:59 Intake Total 1575 Output Total 3200 Balance -1625 Result Diagrams: 03/13/18 05:02 03/13/18 05:02 Additional Labs: Accuchecks 03/13/18 03/12/18 03/12/18 06:17 20:36 15:08 POC Glucose 98 161 H 127 H 03/12/18 03/12/18 12:23 05:36 POC Glucose 107 168 H Phys Exam - Physical Examination Constitutional: NAD HEENT: PERRLA, moist MMs, sclera anicteric Neck: no JVD, supple Respiratory: no wheezing, no rales, no rhonchi Cardiovascular: RRR, no significant murmur, no rub Gastrointestinal: soft, non-tender, no distention, positive bowel sounds Musculoskeletal: pulses present, edema present Neurological: non-focal, normal sensation Psychiatric: normal affect, A&O x 3 Skin: no rash, normal turgor Dx/Plan (1) Acute renal failure superimposed on stage 3 chronic kidney disease Code(s): N17.9 - ACUTE KIDNEY FAILURE, UNSPECIFIED; N18.3 - CHRONIC KIDNEY DISEASE, STAGE 3 (MODERATE) Status: Acute (2) Acute systolic ACC/AHA stage C congestive heart failure Code(s): I50.21 - ACUTE SYSTOLIC (CONGESTIVE) HEART FAILURE Status: Acute (3) Hypoglycemia associated with type 2 diabetes mellitus Code(s): E11.649 - TYPE 2 DIABETES MELLITUS WITH HYPOGLYCEMIA WITHOUT COMA Status: Acute (4) UTI (urinary tract infection) Status: Acute (5) Anemia, normocytic normochromic Code(s): D64.9 - ANEMIA, UNSPECIFIED Status: Chronic (6) HTN (hypertension) Code(s): I10 - ESSENTIAL (PRIMARY) HYPERTENSION Status: Chronic (7) Hyperlipidemia Code(s): E78.5 - HYPERLIPIDEMIA, UNSPECIFIED Status: Chronic (8) Noncompliance with diet and medication regimen Code(s): Z91.11 - PATIENT'S NONCOMPLIANCE WITH DIETARY REGIMEN; Z91.14 - PATIENT 'S OTHER NONCOMPLIANCE WITH MEDICATION REGIMEN Status: Chronic (9) Peripheral neuropathy Code(s): G62.9 - POLYNEUROPATHY, UNSPECIFIED Status: Chronic (10) Tobacco abuse Code(s): Z72.0 - TOBACCO USE Status: Chronic (11) Type II diabetes mellitus Status: Chronic (12) DKA, type 2 Code(s): E11.10 - TYPE 2 DIABETES MELLITUS WITH KETOACIDOSIS WITHOUT COMA Status: Resolved (13) Anemia Code(s): D64.9 - ANEMIA, UNSPECIFIED Status: Acute (14) Anasarca associated with disorder of kidney Code(s): N04.9 - NEPHROTIC SYNDROME WITH UNSPECIFIED MORPHOLOGIC CHANGES Status: Acute (15) Nephrotic syndrome due to diabetes mellitus Code(s): E11.21 - TYPE 2 DIABETES MELLITUS WITH DIABETIC NEPHROPATHY Status: Acute - Plan cont current plan of care, plan discussed w/ family * medication reviewed as below * symptomatic treatment * monitor renal function * cardiology following * will need life vest on discharge * discussed with family. Review of Systems - Review of Systems Eyes: negative: Pain, Vision Change, Conjunctivae Inflammation, Eyelid Inflammation, Redness, Other ENT: negative: Ear Pain, Ear Discharge, Nose Pain, Nose Discharge, Nose Congestion, Mouth Pain, Mouth Swelling, Throat Pain, Throat Swelling, Other Respiratory: negative: Cough, Dry, Shortness of Breath, Hemoptysis, SOB with Excertion, Pleuritic Pain, Sputum, Wheezing Cardiovascular: edema. negative: chest pain, palpitations, orthopnea, paroxysmal nocturnal dyspnea, light headedness, other Gastrointestinal: negative: Nausea, Vomiting, Abdominal Pain, Diarrhea, Constipation, Melena, Hematochezia, Other Genitourinary: negative: Dysuria, Frequency, Incontinence, Hematuria, Retention , Other Musculoskeletal: negative: Neck Pain, Shoulder Pain, Arm Pain, Back Pain, Hand Pain, Leg Pain, Foot Pain, Other Skin: negative: Rash, Lesions, Jan, Bruising, Other - Medications/Allergies Allergies/Adverse Reactions: Allergies Allergy/AdvReac Type Severity Reaction Status Date / Time camphor Allergy Verified 12/03/17 22:05 ciprofloxacin [From Cipro] Allergy Verified 12/03/17 22:05 hydralazine Allergy Verified 07/17/17 14:46 insulin lispro Allergy Verified 03/07/18 17:34 [From Humalog Mix] insulin lispro protamine Allergy Verified 03/07/18 17:34 [From Humalog Mix] naproxen [From Naprosyn] Allergy Verified 07/17/17 14:46 Medications: Current Medications Acetaminophen (Tylenol) 650 mg PO Q4H PRN PRN Reason: Headache/Fever or Pain Last Admin: 03/09/18 07:52 Dose: 650 mg Hydrocodone Bitart/Acetaminophen ([place] 5/325) 1 tab PO Q4H PRN PRN Reason: Moderate Pain (4-6) Artificial Tears (Tears Naturale) 0 drop EA EYE PRN PRN PRN Reason: Dry Eyes Aspirin (Aspirin Chewable) 81 mg PO DAILY [facility] Atorvastatin Calcium (Lipitor) 40 mg PO DAILY [facility] Last Admin: 03/12/18 06:23 Dose: 40 mg Bisacodyl (Dulcolax) 10 mg PO DAILYPRN PRN PRN Reason: Constipation Calcium Carbonate (Tums) 1,000 mg PO Q4H PRN PRN Reason: Heartburn or Indigestion Carvedilol (Coreg) 3.125 mg PO BID [facility] Last Admin: 03/12/18 20:39 Dose: 3.125 mg Dextrose/Water (Dextrose 50%) 25 gm SLOW IVP PRN PRN PRN Reason: Hypoglycemia Last Admin: 03/07/18 12:26 Dose: 25 gm Ferrous Sulfate (Feosol) 325 mg PO QAM-WM [facility] Last Admin: 03/12/18 06:23 Dose: 325 mg Fluconazole (Diflucan) 100 mg PO DAILY [facility] Last Admin: 03/12/18 06:23 Dose: 100 mg Gabapentin (Neurontin) 100 mg PO TID [facility] Last Admin: 03/12/18 20:39 Dose: 100 mg Glucagon (Glucagon) 1 mg IM PRN PRN PRN Reason: Hypoglycemia Guaifenesin (Robitussin Sf) 200 mg PO Q4H PRN PRN Reason: Cough Dextrose/Water (D5w) 1,000 mls @ 0 mls/hr IV .Q0M PRN PRN Reason: Hypoglycemia Insulin Glargine 25 units/ (Miscellaneous Medication) 0.25 mls @ 0 mls/hr SC HS [facility] Last Admin: 03/12/18 20:39 Dose: 0.25 mls Insulin Glargine 25 units/ (Miscellaneous Medication) 0.25 mls @ 0 mls/hr SC QAM [facility] Insulin Human Regular (Humulin R) 0 units SC .AGGRESSIVE SLIDING PRN PRN Reason: Aggressive Sliding Scale Last Admin: 03/11/18 12:37 Dose: 9 unit Insulin Human Regular (Humulin R) 0 units SC .BEDTIME SLIDING SC PRN PRN Reason: Bedtime Correctional Scale Last Admin: 03/12/18 00:16 Dose: 5 unit Isosorbide Mononitrate (Imdur Er) 30 mg PO DAILY [facility] Last Admin: 03/12/18 06:22 Dose: 30 mg Lactulose (Lactulose) 20 gm PO DAILYPRN PRN PRN Reason: Constipation Lidocaine (Lidoderm 5% Patch) 1 patch TD 2359 [facility] Last Admin: 03/13/18 01:02 Dose: Not Given Mineral Oil/White Petrolatum (Eucerin Cream) 0 gm TOP BIDPRN PRN PRN Reason: Dry Skin Miscellaneous Medication (Lidocaine Patch Removal) 1 each TOP 1200 [facility] Last Admin: 03/12/18 17:07 Dose: 1 each Nicotine (Nicoderm Patch) 14 mg TOP Q24HR [facility] Last Admin: 03/12/18 17:02 Dose: 14 mg Nitroglycerin (Nitrostat) 0.4 mg SL Q5MIN PRN PRN Reason: Chest Pain Ondansetron HCl (Zofran Odt) 4 mg PO Q6H PRN PRN Reason: Nausea/Vomiting Ondansetron HCl (Zofran) 4 mg IVP Q6H PRN PRN Reason: Nausea/Vomiting Last Admin: 03/06/18 12:36 Dose: 4 mg Pantoprazole Sodium (Protonix) 40 mg PO DAILY [facility] Last Admin: 03/12/18 06:24 Dose: 40 mg Phenol (Chloraseptic [place] 180 Ml Bot) 0 ml PO PRN PRN PRN Reason: Sore Throat Saccharomyces Boulardii (Florastor) 250 mg PO DAILY [facility] Last Admin: 03/12/18 06:23 Dose: 250 mg Sodium Bicarbonate (Bicarbonate, Sodium) 975 mg PO TID [facility] Last Admin: 03/12/18 20:39 Dose: 975 mg Sodium Chloride (Flush - Normal Saline) 10 ml IVF Q12HR [facility] Last Admin: 03/12/18 20:39 Dose: 10 ml Sodium Chloride (Flush - Normal Saline) 10 ml IVF PRN PRN PRN Reason: Saline Flush Sodium Chloride ([place] Nasal [place] 0.65%) 0 ml EA NARE QIDPRN PRN PRN Reason: Nasal Congestion Temazepam (Restoril) 15 mg PO HSPRN PRN PRN Reason: Insomnia Ticagrelor (Brilinta) 90 mg PO BID [facility] Last Admin: 03/12/18 20:40 Dose: 90 mg
[2018-03-13] MEDS: Saccharomyces boulardii 250 MG CAP PO SCH (10:01)
[2018-03-13] MEDS: Sodium Bicarbonate Tab 325 MG TAB PO SCH ×3 (10:02→22:46)
[2018-03-13] MEDS: TICAGRELOR 90 MG TABLET PO SCH ×2 (10:02→22:47)
[2018-03-13] MEDS: Atorvastatin Calcium 40 MG TAB PO SCH (10:02)
[2018-03-13] MEDS: Gabapentin 100 MG CAP PO SCH ×3 (10:03→22:46)
[2018-03-13] MEDS: Ferrous Sulfate 325 MG TAB PO SCH (10:03)
[2018-03-13] MEDS: Fluconazole 100 MG TAB PO SCH (10:04)
[2018-03-13] MEDS: Carvedilol 3.125 MG TAB PO SCH ×2 (10:04→22:45)
[2018-03-13] MEDS: Insulin Glargine 25 UNITS in Pre-Filled Syringe 1 EACH SC SCH ×2 (10:07→22:46)
--- NOTE | 2018-03-13 11:06 | PRG ---
DATE OF SERVICE: 03/13/2018 SUBJECTIVE: This is a 52-year-old female being seen for acute kidney injury. The patient denies any nausea, vomiting or chest pain. PHYSICAL EXAMINATION: GENERAL: Patient is awake, alert. VITAL SIGNS: Afebrile, pulse 68, breathing 16, blood pressure 135/81. OBJECTIVE: See above. Awake, alert, in no acute distress. GENERAL APPEARANCE AND MENTAL STATUS: Fair. HEAD/NECK: Normocephalic. Atraumatic. EYES: EOMI. No deformity. EARS: Clear. No ulcers. NOSE: Intact. No lesions. MOUTH: Clear. No discharge. THROAT: Clear. No exudate. LUNGS: Clear. No crackles. CARDIAC: S1, S2. No rub. ABDOMEN: Benign. BS+. GENITALIA/RECTUM: Loo absent. BACK/EXTREMITIES: Edema 0+ Ulcer- NEUROLOGICAL: Alert and motor intact. SKIN: Rash- Bruise- LYMPHATICS: Edema- Ulcer- LABORATORY: Hemoglobin 8.2, creatinine 2.0. ASSESSMENT AND RECOMMENDATIONS: 1. Acute kidney injury with chronic kidney disease stage 3, improved. 2. Chronic kidney disease stage 4, improved. 3. Acute tubular necrosis, improved. 4. Metabolic acidosis, improved. 5. Hypokalemia, improved. 6. Congestive heart failure, improved. 7. Edema, improved. No indication for dialysis. We will follow renal function closely.
--- NOTE | 2018-03-13 12:50 | PDOC.CTH ---
<Pattie Chapman - Last Filed: 03/13/18 13:13> Cardiology Progress Note - Subjective The pt seen and examined. No overnight events. No cardiac complaints. - Objective Vital Signs Temp Pulse Resp BP BP Pulse Ox 03/13/18 08:00 97.8 F 88 18 135/81 96 03/13/18 03:44 97.7 F 96 112/74 96 Admit Weight 169 lb 1.6 oz Weight 182 lb 9.6 oz 03/12/18 03/13/18 03/14/18 06:59 06:59 06:59 Intake Total 1575 Output Total 3200 Balance -1625 - Physical Examination General/Neuro: alert & oriented x3 Neck: no JVD present Lungs: CTA Heart: RRR Abdomen: soft Extremities: other: (4+ pitting BLE edema) - Labs Result Diagrams: 03/13/18 05:02 03/13/18 05:02 Troponin/CKMB CK-MB (CK-2) 28.7 ng/mL (0-6.6) H* 03/05/18 18:07 Troponin I 162.370 ng/mL (< 0.028) H* 03/06/18 07:44 - Assessment/Plan 1. S/P Anterior [place] - S/p LHC with stent to LAD on 03/12/18. Stable with Coreg, ASA, Statin, and Brilinta. Plan for re-do LHC on 03/16/18. 2. Acute renal insufficiency on CKD stage 4 - better today. Nephrology following. 3. DKA - per primary service. Pt. poorly controlled. Noncompliant likely at home. 4. Severe CMY, ischemic - On Lasix IV drip 5mg/h, managed by Product Planner. She will need a cath and likely a Life-Vest on d/c. She will need to be compliant with F/U. 5. HTN - stable 6. UTI - Managed by PCP 7. Anemia - Receiving 2 units of PRBCs on 03/09/18. 8. Current smoker - smoking cessation education given to the pt. 9. Hyperlipidemia - on Statin. 10. Non-compliance with diet and medication regimen - education given to the pt. MAR reviewed * Will need a Life-vest on d/c likey. Review of Systems - Review of Systems Constitutional: reports: no symptoms reported EENTM: reports: no symptoms reported Respiratory: reports: no symptoms reported Cardiac (ROS): reports: no symptoms reported ABD/GI: reports: no symptoms reported : reports: no symptoms reported Musculoskeletal: reports: no symptoms reported <Souleymane Robledo - Last Filed: 03/13/18 14:28> Cardiology Progress Note - Objective Vital Signs Temp Pulse Resp BP BP Pulse Ox 03/13/18 08:00 97.8 F 88 18 135/81 96 03/13/18 03:44 97.7 F 96 112/74 96 Admit Weight 169 lb 1.6 oz Weight 182 lb 9.6 oz 03/12/18 03/13/18 03/14/18 06:59 06:59 06:59 Intake Total 1575 Output Total 3200 Balance -1625 - Labs Result Diagrams: 03/13/18 05:02 03/13/18 05:02 Troponin/CKMB CK-MB (CK-2) 28.7 ng/mL (0-6.6) H* 03/05/18 18:07 Troponin I 162.370 ng/mL (< 0.028) H* 03/06/18 07:44 - Assessment/Plan Pt. seen and eval. by me. I agree with the A/P by the STATE H[employer]ICAL [employer]IETY DIRECTOR. She still has significant edema . I plan to place a stent in the RCA next Friday. She will likely need a Life-Vest prior to d/c.
[2018-03-13] MEDS ORDERED: Communication Order-Pharmacy FS SCH (14:45)
[2018-03-13] MEDS ORDERED: Furosemide 40 MG TAB PO SCH (14:45)
[2018-03-13] MEDS: Lidocaine Patch Removal 1 EACH TOP SCH (15:50)
[2018-03-13] MEDS: HYDROcodone/Acetaminophen 5/325 mg Tablet PO PRN (15:51)
[2018-03-13] MEDS: Nicotine 14 MG PATCH TOP SCH (15:52)
[2018-03-14] MEDS: Lidocaine 5% Patch TD SCH (01:08)
[2018-03-14 05:44] LABS: Anion Gap 15 mmol/L (10-20); BUN (Urea Nitrogen) 45 mg/dL (9.8-20.1); Calc. Creatinine Clearance 37 mL/min (70-130); Calcium 8.4 mg/dL (7.8-10.44); Carbon Dioxide 23 mmol/L (22-29); Chloride 106 mmol/L (98-107); Estimated GFR-MDRD 22; Glucose 153 mg/dL (70-105); Potassium 4.6 mmol/L (3.5-5.1); Sodium 139 mmol/L (136-145)
[2018-03-14] MEDS: Aspirin 81 mg Enteric Coated Tablet PO SCH (07:25)
[2018-03-14] MEDS: Carvedilol 3.125 MG TAB PO SCH ×2 (08:33→21:39)
[2018-03-14] MEDS: Furosemide 40 MG TAB PO SCH ×2 (08:33→13:41)
[2018-03-14] MEDS: Fluconazole 100 MG TAB PO SCH (08:33)
[2018-03-14] MEDS: Ferrous Sulfate 325 MG TAB PO SCH (08:33)
[2018-03-14] MEDS: Atorvastatin Calcium 40 MG TAB PO SCH (08:33)
[2018-03-14] MEDS: Saccharomyces boulardii 250 MG CAP PO SCH (08:34)
[2018-03-14] MEDS: Gabapentin 100 MG CAP PO SCH ×3 (08:34→21:39)
[2018-03-14] MEDS: Sodium Bicarbonate Tab 325 MG TAB PO SCH ×3 (08:34→21:38)
[2018-03-14] MEDS: TICAGRELOR 90 MG TABLET PO SCH ×2 (08:34→21:39)
[2018-03-14] MEDS: Insulin Glargine 25 UNITS in Pre-Filled Syringe 1 EACH SC SCH ×2 (08:40→21:42)
--- NOTE | 2018-03-14 09:54 | PDOC.PN ---
- Subjective Encounter Start Date: 03/14/18 Encounter Start Time: 07:10 pt has edema leg, to me unchanged but pt feels less, no dyspnea, no chest pain, no fever - Objective Resuscitation Status: Resuscitation Status FULL:Full Resuscitation MAR Reviewed: Yes Vital Signs & Weight: Vital Signs (12 hours) Temp Pulse Resp BP BP Pulse Ox 03/14/18 08:30 97.8 F 96 16 130/74 95 03/14/18 03:34 97.5 F L 95 18 110/64 96 03/14/18 02:09 97 Weight Admit Weight 169 lb 1.6 oz Weight 182 lb 9.6 oz Most Recent Monitor Data Heart Rate from ECG 94 NIBP 130/85 NIBP BP-Mean 107 Respiration from ECG 18 SpO2 99 Result Diagrams: 03/13/18 05:02 03/14/18 05:01 Additional Labs: Accuchecks 03/14/18 03/13/18 03/13/18 05:28 20:37 15:58 POC Glucose 158 H 155 H 140 H 03/13/18 11:04 POC Glucose 99 EKG Reviewed by me: Yes (nsr) Phys Exam - Physical Examination Constitutional: NAD HEENT: PERRLA, moist MMs, sclera anicteric Neck: no JVD, supple Respiratory: no wheezing, no rales, no rhonchi Cardiovascular: RRR, no significant murmur, no rub Gastrointestinal: soft, non-tender, no distention, positive bowel sounds anasarca Musculoskeletal: pulses present, edema present Neurological: non-focal, normal sensation Psychiatric: normal affect, A&O x 3 Skin: no rash, normal turgor Dx/Plan (1) Acute renal failure superimposed on stage 3 chronic kidney disease Code(s): N17.9 - ACUTE KIDNEY FAILURE, UNSPECIFIED; N18.3 - CHRONIC KIDNEY DISEASE, STAGE 3 (MODERATE) Status: Acute (2) Acute systolic ACC/AHA stage C congestive heart failure Code(s): I50.21 - ACUTE SYSTOLIC (CONGESTIVE) HEART FAILURE Status: Acute (3) Hypoglycemia associated with type 2 diabetes mellitus Code(s): E11.649 - TYPE 2 DIABETES MELLITUS WITH HYPOGLYCEMIA WITHOUT COMA Status: Acute (4) UTI (urinary tract infection) Status: Acute (5) Anemia, normocytic normochromic Code(s): D64.9 - ANEMIA, UNSPECIFIED Status: Chronic (6) HTN (hypertension) Code(s): I10 - ESSENTIAL (PRIMARY) HYPERTENSION Status: Chronic (7) Hyperlipidemia Code(s): E78.5 - HYPERLIPIDEMIA, UNSPECIFIED Status: Chronic (8) Noncompliance with diet and medication regimen Code(s): Z91.11 - PATIENT'S NONCOMPLIANCE WITH DIETARY REGIMEN; Z91.14 - PATIENT 'S OTHER NONCOMPLIANCE WITH MEDICATION REGIMEN Status: Chronic (9) Peripheral neuropathy Code(s): G62.9 - POLYNEUROPATHY, UNSPECIFIED Status: Chronic (10) Tobacco abuse Code(s): Z72.0 - TOBACCO USE Status: Chronic (11) Type II diabetes mellitus Status: Chronic (12) DKA, type 2 Code(s): E11.10 - TYPE 2 DIABETES MELLITUS WITH KETOACIDOSIS WITHOUT COMA Status: Resolved (13) Anemia Code(s): D64.9 - ANEMIA, UNSPECIFIED Status: Acute (14) Anasarca associated with disorder of kidney Code(s): N04.9 - NEPHROTIC SYNDROME WITH UNSPECIFIED MORPHOLOGIC CHANGES Status: Acute (15) Nephrotic syndrome due to diabetes mellitus Code(s): E11.21 - TYPE 2 DIABETES MELLITUS WITH DIABETIC NEPHROPATHY Status: Acute (16) NSTEMI (non-ST elevated myocardial infarction) Code(s): I21.4 - NON-ST ELEVATION (NSTEMI) MYOCARDIAL INFARCTION Status: Acute (17) S/P coronary artery stent placement Status: Acute - Plan cont current plan of care, plan discussed w/ family * currently on aspirin, brilinta, coreg, imdur, lasix, lipitor * pt is not on acei or arb due to renal failure * she is planned for another cath with stent on friday * monitor renal function, today creatinine is elevated * her anasarca most likely related with nephrotic syndrome with systolic CHF * medication reviewed as below * symptomatic treatment. Review of Systems - Review of Systems Eyes: negative: Pain, Vision Change, Conjunctivae Inflammation, Eyelid Inflammation, Redness, Other ENT: negative: Ear Pain, Ear Discharge, Nose Pain, Nose Discharge, Nose Congestion, Mouth Pain, Mouth Swelling, Throat Pain, Throat Swelling, Other Respiratory: negative: Cough, Dry, Shortness of Breath, Hemoptysis, SOB with Excertion, Pleuritic Pain, Sputum, Wheezing Cardiovascular: edema. negative: chest pain, palpitations, orthopnea, paroxysmal nocturnal dyspnea, light headedness, other Gastrointestinal: negative: Nausea, Vomiting, Abdominal Pain, Diarrhea, Constipation, Melena, Hematochezia, Other Genitourinary: negative: Dysuria, Frequency, Incontinence, Hematuria, Retention , Other Musculoskeletal: negative: Neck Pain, Shoulder Pain, Arm Pain, Back Pain, Hand Pain, Leg Pain, Foot Pain, Other Skin: negative: Rash, Lesions, Jan, Bruising, Other - Medications/Allergies Allergies/Adverse Reactions: Allergies Allergy/AdvReac Type Severity Reaction Status Date / Time camphor Allergy Verified 12/03/17 22:05 ciprofloxacin [From Cipro] Allergy Verified 12/03/17 22:05 hydralazine Allergy Verified 07/17/17 14:46 insulin lispro Allergy Verified 03/07/18 17:34 [From Humalog Mix] insulin lispro protamine Allergy Verified 03/07/18 17:34 [From Humalog Mix] naproxen [From Naprosyn] Allergy Verified 07/17/17 14:46 Medications: Current Medications Acetaminophen (Tylenol) 650 mg PO Q4H PRN PRN Reason: Headache/Fever or Pain Last Admin: 03/09/18 07:52 Dose: 650 mg Hydrocodone Bitart/Acetaminophen ([place] 5/325) 1 tab PO Q4H PRN PRN Reason: Moderate Pain (4-6) Last Admin: 03/13/18 15:51 Dose: 1 tab Artificial Tears (Tears Naturale) 0 drop EA EYE PRN PRN PRN Reason: Dry Eyes Aspirin (Aspirin Chewable) 81 mg PO DAILY [facility] Last Admin: 03/14/18 08:33 Dose: 81 mg Atorvastatin Calcium (Lipitor) 40 mg PO DAILY [facility] Last Admin: 03/14/18 08:33 Dose: 40 mg Bisacodyl (Dulcolax) 10 mg PO DAILYPRN PRN PRN Reason: Constipation Calcium Carbonate (Tums) 1,000 mg PO Q4H PRN PRN Reason: Heartburn or Indigestion Carvedilol (Coreg) 3.125 mg PO BID [facility] Last Admin: 03/14/18 08:33 Dose: 3.125 mg Dextrose/Water (Dextrose 50%) 25 gm SLOW IVP PRN PRN PRN Reason: Hypoglycemia Last Admin: 09/08/18 12:26 Dose: 25 gm Ferrous Sulfate (Feosol) 325 mg PO QAM-[facility] Last Admin: 03/14/18 08:33 Dose: 325 mg Fluconazole (Diflucan) 100 mg PO DAILY [facility] Last Admin: 03/14/18 08:33 Dose: 100 mg Furosemide (Lasix) 40 mg PO 0900,1400 [facility] Last Admin: 03/14/18 08:33 Dose: 40 mg Gabapentin (Neurontin) 100 mg PO TID [facility] Last Admin: 03/14/18 08:34 Dose: 100 mg Glucagon (Glucagon) 1 mg IM PRN PRN PRN Reason: Hypoglycemia Guaifenesin (Robitussin Sf) 200 mg PO Q4H PRN PRN Reason: Cough Dextrose/Water (D5w) 1,000 mls @ 0 mls/hr IV .Q0M PRN PRN Reason: Hypoglycemia Insulin Glargine 25 units/ (Miscellaneous Medication) 0.25 mls @ 0 mls/hr SC [facility] Last Admin: 03/13/18 22:46 Dose: 0.25 mls Insulin Glargine 25 units/ (Miscellaneous Medication) 0.25 mls @ 0 mls/hr SC QAM [facility] Last Admin: 03/14/18 08:40 Dose: 0.25 mls Insulin Human Regular (Humulin R) 0 units SC .AGGRESSIVE SLIDING PRN PRN Reason: Aggressive Sliding Scale Last Admin: 03/11/18 12:37 Dose: 9 unit Insulin Human Regular (Humulin R) 0 units SC .BEDTIME SLIDING SC PRN PRN Reason: Bedtime Correctional Scale Last Admin: 03/12/18 00:16 Dose: 5 unit Isosorbide Mononitrate (Imdur Er) 30 mg PO DAILY [facility] Last Admin: 03/14/18 08:34 Dose: 30 mg Lactulose (Lactulose) 20 gm PO DAILYPRN PRN PRN Reason: Constipation Lidocaine (Lidoderm 5% Patch) 1 patch TD 4330 [facility] Last Admin: 03/14/18 01:08 Dose: Not Given Mineral Oil/White Petrolatum (Eucerin Cream) 0 gm TOP BIDPRN PRN PRN Reason: Dry Skin Miscellaneous Information (Communication Order-Pharmacy) 0 each FS ONE [facility] Stop: 03/16/18 23:59 Miscellaneous Medication (Lidocaine Patch Removal) 1 each TOP 1200 [facility] Last Admin: 03/13/18 15:50 Dose: Not Given Nicotine (Nicoderm Patch) 14 mg TOP Q24HR [facility] Last Admin: 03/13/18 15:52 Dose: 14 mg Nitroglycerin (Nitrostat) 0.4 mg SL Q5MIN PRN PRN Reason: Chest Pain Ondansetron HCl (Zofran Odt) 4 mg PO Q6H PRN PRN Reason: Nausea/Vomiting Ondansetron HCl (Zofran) 4 mg IVP Q6H PRN PRN Reason: Nausea/Vomiting Last Admin: 03/06/18 12:36 Dose: 4 mg Pantoprazole Sodium (Protonix) 40 mg PO DAILY [facility] Last Admin: 03/14/18 08:34 Dose: 40 mg Phenol (Chloraseptic [place] 180 Ml Bot) 0 ml PO PRN PRN PRN Reason: Sore Throat Saccharomyces Boulardii (Florastor) 250 mg PO DAILY [facility] Last Admin: 03/14/18 08:34 Dose: 250 mg Sodium Bicarbonate (Bicarbonate, Sodium) 975 mg PO TID [facility] Last Admin: 03/14/18 08:34 Dose: 975 mg Sodium Chloride (Flush - Normal Saline) 10 ml IVF Q12HR [facility] Last Admin: 03/14/18 08:34 Dose: 10 ml Sodium Chloride (Flush - Normal Saline) 10 ml IVF PRN PRN PRN Reason: Saline Flush Sodium Chloride ([place] Nasal [place] 0.65%) 0 ml EA NARE QIDPRN PRN PRN Reason: Nasal Congestion Temazepam (Restoril) 15 mg PO HSPRN PRN PRN Reason: Insomnia Ticagrelor (Brilinta) 90 mg PO BID [facility] Last Admin: 03/14/18 08:34 Dose: 90 mg
[2018-03-14] MEDS ORDERED: Carvedilol 3.125 MG TAB PO SCH (11:00)
[2018-03-14] MEDS: Insulin Regular 300 UNITS/3 ML VIAL SC PRN (11:54)
[2018-03-14] MEDS: Lidocaine Patch Removal 1 EACH TOP SCH (11:59)
--- NOTE | 2018-03-14 12:19 | PRG ---
DATE OF SERVICE: 03/14/2018 SUBJECTIVE: A 52-year-old female being seen for acute kidney injury. The patient denies any nausea, vomiting or chest pain. PHYSICAL EXAMINATION: GENERAL: Patient is awake. VITAL SIGNS: Afebrile, pulse 99, breathing 16, blood pressure 130/74. HEAD/NECK: Normocephalic. Atraumatic. EYES: EOMI. No deformity. EARS: Clear. No ulcers. NOSE: Intact. No lesions. MOUTH: Clear. No discharge. THROAT: Clear. No exudate. LUNGS: Clear. No crackles. CARDIAC: S1, S2. No rub. ABDOMEN: Benign. BS+. GENITALIA/RECTUM: Loo absent. BACK/EXTREMITIES: Edema 0+ Ulcer- NEUROLOGICAL: Alert and motor intact. SKIN: Rash- Bruise- LYMPHATICS: Edema- Ulcer- LABORATORY DATA: Show hemoglobin 8.2 and creatinine 2.3. ASSESSMENT AND PLAN: 1. Chronic kidney disease stage 4 stable. 2. ATN due to cardiorenal syndrome. 3. Hypertension, stable. 4. Anemia, stable. 5. Medications based on glomerular filtration rate are appropriate. 6. Anemia, would recommend transfusion if the hemoglobin is 8 or less.
[2018-03-14] MEDS: Nicotine 14 MG PATCH TOP SCH (13:41)
[2018-03-14] MEDS: HYDROcodone/Acetaminophen 5/325 mg Tablet PO PRN ×2 (13:45→19:12)
[2018-03-15] MEDS: Lidocaine 5% Patch TD SCH (00:26)
[2018-03-15 05:57] LABS: Anion Gap 17 mmol/L (10-20); BUN (Urea Nitrogen) 46 mg/dL (9.8-20.1); Calc. Creatinine Clearance 36 mL/min (70-130); Calcium 8.4 mg/dL (7.8-10.44); Carbon Dioxide 21 mmol/L (22-29); Chloride 108 mmol/L (98-107); Estimated GFR-MDRD 21; Glucose 87 mg/dL (70-105); Potassium 4.6 mmol/L (3.5-5.1); Sodium 141 mmol/L (136-145)
[2018-03-15] MEDS: Atorvastatin Calcium 40 MG TAB PO SCH (09:59)
[2018-03-15] MEDS: Carvedilol 3.125 MG TAB PO SCH ×2 (09:59→20:43)
[2018-03-15] MEDS: Ferrous Sulfate 325 MG TAB PO SCH (09:59)
[2018-03-15] MEDS: Furosemide 40 MG TAB PO SCH ×2 (10:00→14:00)
[2018-03-15] MEDS: Saccharomyces boulardii 250 MG CAP PO SCH (10:00)
[2018-03-15] MEDS: Fluconazole 100 MG TAB PO SCH (10:00)
[2018-03-15] MEDS: Insulin Glargine 25 UNITS in Pre-Filled Syringe 1 EACH SC SCH (10:00)
[2018-03-15] MEDS: Gabapentin 100 MG CAP PO SCH ×3 (10:00→20:44)
[2018-03-15] MEDS: Sodium Bicarbonate Tab 325 MG TAB PO SCH ×3 (10:01→20:44)
[2018-03-15] MEDS: TICAGRELOR 90 MG TABLET PO SCH ×2 (10:01→20:44)
[2018-03-15] MEDS: HYDROcodone/Acetaminophen 5/325 mg Tablet PO PRN ×3 (10:55→19:50)
[2018-03-15] MEDS: Lidocaine Patch Removal 1 EACH TOP SCH (11:04)
[2018-03-15] MEDS: Nicotine 14 MG PATCH TOP SCH (14:00)
--- NOTE | 2018-03-15 16:13 | PDOC.PN ---
- Subjective Encounter Start Date: 03/15/18 Encounter Start Time: 16:10 Subjective: nsg notes rev, ketan ovn, no new c/o other than leg pain - Objective Resuscitation Status: Resuscitation Status FULL:Full Resuscitation Vital Signs & Weight: Vital Signs (12 hours) Temp Pulse Pulse Pulse Resp BP BP 03/15/18 12:44 90 90 100/63 118/76 03/15/18 12:32 97.9 F 87 14 03/15/18 08:00 03/15/18 07:39 97.6 F 86 16 03/15/18 04:49 97.7 F 87 12 BP BP BP Pulse Ox Pulse Ox Pulse Ox 03/15/18 12:44 100 98 03/15/18 12:32 104/64 94 L 03/15/18 08:00 95 03/15/18 07:39 91/54 L 92 L 03/15/18 04:49 108/68 93 L Weight Admit Weight 169 lb 1.6 oz Weight 189 lb 14.4 oz Most Recent Monitor Data Heart Rate from ECG 94 NIBP 130/85 NIBP BP-Mean 107 Respiration from ECG 18 SpO2 99 I&O: 03/14/18 03/15/18 03/16/18 06:59 06:59 06:59 Intake Total 795 Output Total 1150 Balance -355 Result Diagrams: 03/13/18 05:02 03/15/18 05:09 Additional Labs: Accuchecks 03/15/18 03/15/18 03/14/18 10:53 05:50 20:27 POC Glucose 66 L 92 96 03/14/18 16:30 POC Glucose 89 Phys Exam - Physical Examination Constitutional: NAD lying in hospital bed HEENT: PERRLA, moist MMs Respiratory: no wheezing, no rales, no rhonchi, clear to auscultation bilateral Cardiovascular: RRR, no significant murmur, no rub Gastrointestinal: soft, positive bowel sounds 4+ pitting pedal edema Neurological: moves all 4 limbs Psychiatric: normal affect, A&O x 3 Dx/Plan - Plan (1) Acute renal failure superimposed on stage 3 chronic kidney disease Code(s): N17.9 - ACUTE KIDNEY FAILURE, UNSPECIFIED; N18.3 - CHRONIC KIDNEY DISEASE, STAGE 3 (MODERATE) Status: Acute apprec nephrology c/s (2) Acute systolic ACC/AHA stage C congestive heart failure Code(s): I50.21 - ACUTE SYSTOLIC (CONGESTIVE) HEART FAILURE Status: Acute currently on aspirin, brilinta, coreg, imdur, lasix, lipitor pt is not on acei or arb due to renal failure plan for [facility] tomorrow apprec cardiology c/s (3) Hypoglycemia associated with type 2 diabetes mellitus Code(s): E11.649 - TYPE 2 DIABETES MELLITUS WITH HYPOGLYCEMIA WITHOUT COMA Status: Acute see discussion below re: decreasing lantus (4) UTI (urinary tract infection) Status: Acute (5) Anemia, normocytic normochromic Code(s): D64.9 - ANEMIA, UNSPECIFIED Status: Chronic (6) HTN (hypertension) Code(s): I10 - ESSENTIAL (PRIMARY) HYPERTENSION Status: Chronic (7) Hyperlipidemia Code(s): E78.5 - HYPERLIPIDEMIA, UNSPECIFIED Status: Chronic (8) Noncompliance with diet and medication regimen Code(s): Z91.11 - PATIENT'S NONCOMPLIANCE WITH DIETARY REGIMEN; Z91.14 - PATIENT 'S OTHER NONCOMPLIANCE WITH MEDICATION REGIMEN Status: Chronic (9) Peripheral neuropathy Code(s): G62.9 - POLYNEUROPATHY, UNSPECIFIED Status: Chronic (10) Tobacco abuse Code(s): Z72.0 - TOBACCO USE Status: Chronic (11) Type II diabetes mellitus Status: Chronic insulin dependent - will episodes of hypoglycemia today suspect 2/2 stricter diet than usual baseline combined with renal disease decrease lantus from 25U SQ BID to 20U SQ BID and continue SSI without change continue to closely monitor (12) DKA, type 2 Code(s): E11.10 - TYPE 2 DIABETES MELLITUS WITH KETOACIDOSIS WITHOUT COMA Status: Resolved (13) Anemia Code(s): D64.9 - ANEMIA, UNSPECIFIED Status: Acute (14) Anasarca associated with disorder of kidney Code(s): N04.9 - NEPHROTIC SYNDROME WITH UNSPECIFIED MORPHOLOGIC CHANGES Status: Acute related to combination of cardiac and renal issues diuresis slowly as tolerated (15) Nephrotic syndrome due to diabetes mellitus Code(s): E11.21 - TYPE 2 DIABETES MELLITUS WITH DIABETIC NEPHROPATHY Status: Acute (16) NSTEMI (non-ST elevated myocardial infarction) Code(s): I21.4 - NON-ST ELEVATION (NSTEMI) MYOCARDIAL INFARCTION Status: Acute (17) S/P coronary artery stent placement Status: Acute - Plan diet: cardiac, diabetic activity: as rebekah dvt ppx d/w pt at bedside also d/w pt's bedside nsg Review of Systems - Medications/Allergies Allergies/Adverse Reactions: Allergies Allergy/AdvReac Type Severity Reaction Status Date / Time camphor Allergy Verified 12/03/17 22:05 ciprofloxacin [From Cipro] Allergy Verified 12/03/17 22:05 hydralazine Allergy Verified 07/17/17 14:46 insulin lispro Allergy Verified 03/07/18 17:34 [From Humalog Mix] insulin lispro protamine Allergy Verified 03/07/18 17:34 [From Humalog Mix] naproxen [From Naprosyn] Allergy Verified 07/17/17 14:46 Medications: Current Medications Acetaminophen (Tylenol) 650 mg PO Q4H PRN PRN Reason: Headache/Fever or Pain Last Admin: 03/09/18 07:52 Dose: 650 mg Hydrocodone Bitart/Acetaminophen ([place] 5/325) 1 tab PO Q4H PRN PRN Reason: Moderate Pain (4-6) Last Admin: 03/15/18 15:52 Dose: 1 tab Artificial Tears (Tears Naturale) 0 drop EA EYE PRN PRN PRN Reason: Dry Eyes Aspirin (Aspirin Chewable) 81 mg PO DAILY [facility] Last Admin: 03/15/18 09:59 Dose: 81 mg Atorvastatin Calcium (Lipitor) 40 mg PO DAILY [facility] Last Admin: 03/15/18 09:59 Dose: 40 mg Bisacodyl (Dulcolax) 10 mg PO DAILYPRN PRN PRN Reason: Constipation Calcium Carbonate (Tums) 1,000 mg PO Q4H PRN PRN Reason: Heartburn or Indigestion Carvedilol (Coreg) 6.25 mg PO BID [facility] Last Admin: 03/15/18 09:59 Dose: 6.25 mg Dextrose/Water (Dextrose 50%) 25 gm SLOW IVP PRN PRN PRN Reason: Hypoglycemia Last Admin: 03/07/18 12:26 Dose: 25 gm Ferrous Sulfate (Feosol) 325 mg PO QAM-[facility] Last Admin: 03/15/18 09:59 Dose: 325 mg Fluconazole (Diflucan) 100 mg PO DAILY [facility] Last Admin: 03/15/18 10:00 Dose: 100 mg Furosemide (Lasix) 40 mg PO 0900,1400 [facility] Last Admin: 03/15/18 14:00 Dose: 40 mg Gabapentin (Neurontin) 100 mg PO TID [facility] Last Admin: 03/15/18 14:00 Dose: 100 mg Glucagon (Glucagon) 1 mg IM PRN PRN PRN Reason: Hypoglycemia Guaifenesin (Robitussin Sf) 200 mg PO Q4H PRN PRN Reason: Cough Dextrose/Water (D5w) 1,000 mls @ 0 mls/hr IV .Q0M PRN PRN Reason: Hypoglycemia Insulin Glargine 20 units/ (Miscellaneous Medication) 0.2 mls @ 0 mls/hr SC HS SANDI Insulin Glargine 20 units/ (Miscellaneous Medication) 0.2 mls @ 0 mls/hr SC QAM SANDI Insulin Human Regular (Humulin R) 0 units SC .AGGRESSIVE SLIDING PRN PRN Reason: Aggressive Sliding Scale Last Admin: 03/14/18 11:54 Dose: 9 unit Insulin Human Regular (Humulin R) 0 units SC .BEDTIME SLIDING SC PRN PRN Reason: Bedtime Correctional Scale Last Admin: 03/12/18 00:16 Dose: 5 unit Isosorbide Mononitrate (Imdur Er) 30 mg PO DAILY [facility] Last Admin: 03/15/18 10:00 Dose: 30 mg Lactulose (Lactulose) 20 gm PO DAILYPRN PRN PRN Reason: Constipation Lidocaine (Lidoderm 5% Patch) 1 patch TD 4876 [facility] Last Admin: 03/15/18 00:26 Dose: Not Given Mineral Oil/White Petrolatum (Eucerin Cream) 0 gm TOP BIDPRN PRN PRN Reason: Dry Skin Miscellaneous Information (Communication Order-Pharmacy) 0 each FS ONE [facility] Stop: 03/16/18 23:59 Miscellaneous Medication (Lidocaine Patch Removal) 1 each TOP 1200 [facility] Last Admin: 03/15/18 11:04 Dose: Not Given Nicotine (Nicoderm Patch) 14 mg TOP Q24HR [facility] Last Admin: 03/15/18 14:00 Dose: 14 mg Nitroglycerin (Nitrostat) 0.4 mg SL Q5MIN PRN PRN Reason: Chest Pain Ondansetron HCl (Zofran Odt) 4 mg PO Q6H PRN PRN Reason: Nausea/Vomiting Ondansetron HCl (Zofran) 4 mg IVP Q6H PRN PRN Reason: Nausea/Vomiting Last Admin: 03/06/18 12:36 Dose: 4 mg Pantoprazole Sodium (Protonix) 40 mg PO DAILY [facility] Last Admin: 03/15/18 10:00 Dose: 40 mg Phenol (Chloraseptic [place] 180 Ml Bot) 0 ml PO PRN PRN PRN Reason: Sore Throat Saccharomyces Boulardii (Florastor) 250 mg PO DAILY [facility] Last Admin: 03/15/18 10:00 Dose: 250 mg Sodium Bicarbonate (Bicarbonate, Sodium) 975 mg PO TID [facility] Last Admin: 03/15/18 14:00 Dose: 975 mg Sodium Chloride (Flush - Normal Saline) 10 ml IVF Q12HR [facility] Last Admin: 03/15/18 10:01 Dose: 10 ml Sodium Chloride (Flush - Normal Saline) 10 ml IVF PRN PRN PRN Reason: Saline Flush Sodium Chloride ([place] Nasal [place] 0.65%) 0 ml EA NARE QIDPRN PRN PRN Reason: Nasal Congestion Temazepam (Restoril) 15 mg PO HSPRN PRN PRN Reason: Insomnia Ticagrelor (Brilinta) 90 mg PO BID [facility] Last Admin: 03/15/18 10:01 Dose: 90 mg
[2018-03-15 17:54] LABS: Hemoglobin 8.3 g/dL (12.0-16.0)
--- NOTE | 2018-03-15 17:55 | PRG ---
DATE OF SERVICE: 03/15/2018 SUBJECTIVE: This is a 52-year-old female being seen for acute kidney injury. The patient denies any nausea, vomiting, or chest pain. OBJECTIVE: GENERAL: Patient is awake and alert. VITAL SIGNS: Afebrile, pulse 87, breathing at 16, and blood pressure 104/63. GENERAL APPEARANCE AND MENTAL STATUS: Fair. HEAD/NECK: Normocephalic. Atraumatic. EYES: EOMI. No deformity. EARS: Clear. No ulcers. NOSE: Intact. No lesions. MOUTH: Clear. No discharge. THROAT: Clear. No exudate. LUNGS: Clear. No crackles. CARDIAC: S1, S2. No rub. ABDOMEN: Benign. BS+. GENITALIA/RECTUM: Loo absent. BACK/EXTREMITIES: Edema 0+ Ulcer- NEUROLOGICAL: Alert and motor intact. SKIN: Rash- Bruise- LABORATORY DATA: Hemoglobin 8.2, creatinine 2.4. ASSESSMENT AND PLAN: 1. Acute kidney injury. 2. Chronic kidney disease, stable. 3. Hypertension, stable. 4. Anemia. Check hemoglobin. Medication based on glomerular filtration rate are appropriate.
[2018-03-15] MEDS ORDERED: Insulin Glargine 20 UNITS in Pre-Filled Syringe 1 EACH SC SCH (21:00)
[2018-03-16] MEDS: Lidocaine 5% Patch TD SCH (00:15)
[2018-03-16] MEDS: Dextrose 50% Abboject 50 ML SYRINGE SLOW IVP PRN ×3 (05:34→08:01)
--- NOTE | 2018-03-16 06:14 | PDOC.EVN ---
Event Note - Event Note Event Note: pt hypoglycemic, will hold insuline for now , to be reconciled later on, continue hypoglycemia protocol.
[2018-03-16 07:00] LABS: Anion Gap 16 mmol/L (10-20); BUN (Urea Nitrogen) 49 mg/dL (9.8-20.1); Calc. Creatinine Clearance 38 mL/min (70-130); Calcium 8.2 mg/dL (7.8-10.44); Carbon Dioxide 20 mmol/L (22-29); Chloride 108 mmol/L (98-107); Estimated GFR-MDRD 21; Glucose 163 mg/dL (70-105); Sodium 139 mmol/L (136-145)
[2018-03-16] MEDS ORDERED: Dextrose 10% in Water 1,000 ML IV SCH (08:00)
[2018-03-16] MEDS: Sodium Bicarbonate Tab 325 MG TAB PO SCH ×3 (08:06→20:44)
[2018-03-16] MEDS: Carvedilol 3.125 MG TAB PO SCH ×2 (08:06→20:44)
[2018-03-16] MEDS: Saccharomyces boulardii 250 MG CAP PO SCH (08:06)
[2018-03-16] MEDS: Fluconazole 100 MG TAB PO SCH (08:08)
[2018-03-16] MEDS: Ferrous Sulfate 325 MG TAB PO SCH (08:09)
[2018-03-16] MEDS: Atorvastatin Calcium 40 MG TAB PO SCH (08:09)
[2018-03-16] MEDS: Gabapentin 100 MG CAP PO SCH ×3 (08:09→20:44)
[2018-03-16] MEDS ORDERED: Insulin Glargine 20 UNITS in Pre-Filled Syringe 1 EACH SC SCH (09:00)
--- NOTE | 2018-03-16 10:07 | EKG ---
Test Reason : Blood Pressure : / mmHG Vent. Rate : 107 BPM Atrial Rate : 107 BPM P-R Int : 134 ms QRS Dur : 084 ms QT Int : 330 ms P-R-T Axes : 050 027 113 degrees QTc Int : 440 ms Sinus tachycardia Low voltage QRS Cannot rule out Anteroseptal infarct (cited on or before 05-MAR-2018) Abnormal ECG When compared with ECG of 06-MAR-2018 07:20, T wave inversion now evident in Anterior leads Confirmed by DR. Mago PANG ([id number]) on 03/16/2018 10:06:52 AM Referred By: BENJAMIN Confirmed By:DR. Mago PANG
--- NOTE | 2018-03-16 10:08 | EKG ---
Test Reason : Blood Pressure : / mmHG Vent. Rate : 098 BPM Atrial Rate : 098 BPM P-R Int : 140 ms QRS Dur : 084 ms QT Int : 358 ms P-R-T Axes : 055 041 106 degrees QTc Int : 457 ms Normal sinus rhythm Low voltage QRS Cannot rule out Anteroseptal infarct (cited on or before 05-MAR-2018) Abnormal ECG When compared with ECG of 12-MAR-2018 15:40, (Unconfirmed) No significant change was found Confirmed by DR. Mago PANG ([id number]) on 03/16/2018 10:07:52 AM Referred By: BENJAMIN Confirmed By:DR. Mago PANG
[2018-03-16] MEDS: TICAGRELOR 90 MG TABLET PO SCH ×2 (10:22→20:44)
[2018-03-16] MEDS: Furosemide 40 MG TAB PO SCH ×2 (11:13→15:00)
[2018-03-16] MEDS: HYDROcodone/Acetaminophen 5/325 mg Tablet PO PRN (11:13)
--- NOTE | 2018-03-16 11:17 | PRG ---
Patient Name: TESSA [facility] Date of service: 03/16/2018 Subjective: Patient was seen and examined at bedside and overnight events noted. Patient denies any shortness of breath or chest pain or palpitation. No history of nausea or vomiting or diarrhea or fever or chills or cramps. Objective: General: This is a well-built female in mild distress. was at the bedside. Vital signs: Temperature 97, pulse 80, respiratory rate 18, blood pressure 105/65. HEENT: Atraumatic, normocephalic. Oral mucosa is moist. Neck: Supple. Cardiovascular: S1 S2 heard. Rate and rhythm regular. Respiratory: Clear to auscultation. Gastrointestinal: Abdomen is soft. Musculoskeletal: No tenderness. 1+ edema. Dermatologic: No skin rash. Neurologic: Alert and awake and oriented X3. No focal neurologic deficits. Moving all the extremit ies. Psychiatric: Mood and affect normal. LABORATORY DATA: Potassium is 5.0, BUN 49, creatinine is 2.4. ASSESSMENT AND PLAN: 1. Acute kidney injury on chronic kidney stage 4, seems like creatinine is stable for the last few d ays. Avoid nephrotoxins. 2. Cardiorenal syndrome, planned for heart cath. The patient and family was advised on the risk of renal injury and agrees to have the procedure done. Follow up with Cardiology. 3. Edema, chronic. 4. Hypertension. 5. Anemia. Monitor hemoglobin and transfuse p.r.n. 6. Hypertension, stable. 7. Diabetic nephropathy. We will continue to monitor.
--- NOTE | 2018-03-16 11:23 | PDOC.PN ---
- Subjective Encounter Start Date: 03/16/18 Encounter Start Time: 08:10 -: old records requested/rev this morning pt is hypoglycemic, she did not eat her dinner, we gave her d50% and started on D10% drip procedure cancelled and now pt started eating so, ivf stopped - Objective Resuscitation Status: Resuscitation Status FULL:Full Resuscitation MAR Reviewed: Yes Vital Signs & Weight: Vital Signs (12 hours) Temp Pulse Resp BP BP Pulse Ox 03/16/18 11:12 97.6 F 76 14 97/63 97 03/16/18 08:00 97.4 F L 79 14 109/64 97 03/16/18 04:00 97.6 F 80 18 105/65 Weight Admit Weight 169 lb 1.6 oz Weight 195 lb Most Recent Monitor Data Heart Rate from ECG 94 NIBP 130/85 NIBP BP-Mean 107 Respiration from ECG 18 SpO2 99 I&O: 03/15/18 03/16/18 03/17/18 06:59 06:59 06:59 Intake Total 795 1080 Output Total 1150 1400 Balance -355 -320 Result Diagrams: 03/15/18 17:42 03/16/18 06:15 Additional Labs: Accuchecks 03/16/18 03/16/18 03/16/18 09:04 07:53 05:58 POC Glucose 100 58 L* 89 03/16/18 03/15/18 03/15/18 05:28 20:24 17:20 POC Glucose Less than 35 L* 148 H 161 H EKG Reviewed by me: Yes Phys Exam - Physical Examination Constitutional: NAD HEENT: PERRLA, moist MMs, sclera anicteric Neck: no JVD, supple Respiratory: no wheezing, no rales, no rhonchi reduced air entry at base Cardiovascular: RRR, no rub SM+ Gastrointestinal: soft, non-tender, no distention, positive bowel sounds Musculoskeletal: pulses present, edema present Neurological: non-focal, normal sensation Lymphatic: no nodes Psychiatric: normal affect, A&O x 3 Skin: no rash, normal turgor Dx/Plan (1) Acute renal failure superimposed on stage 3 chronic kidney disease Code(s): N17.9 - ACUTE KIDNEY FAILURE, UNSPECIFIED; N18.3 - CHRONIC KIDNEY DISEASE, STAGE 3 (MODERATE) Status: Acute (2) Acute systolic ACC/AHA stage C congestive heart failure Code(s): I50.21 - ACUTE SYSTOLIC (CONGESTIVE) HEART FAILURE Status: Acute (3) Hypoglycemia associated with type 2 diabetes mellitus Code(s): E11.649 - TYPE 2 DIABETES MELLITUS WITH HYPOGLYCEMIA WITHOUT COMA Status: Acute (4) UTI (urinary tract infection) Status: Acute (5) Anemia, normocytic normochromic Code(s): D64.9 - ANEMIA, UNSPECIFIED Status: Chronic (6) HTN (hypertension) Code(s): I10 - ESSENTIAL (PRIMARY) HYPERTENSION Status: Chronic (7) Hyperlipidemia Code(s): E78.5 - HYPERLIPIDEMIA, UNSPECIFIED Status: Chronic (8) Noncompliance with diet and medication regimen Code(s): Z91.11 - PATIENT'S NONCOMPLIANCE WITH DIETARY REGIMEN; Z91.14 - PATIENT 'S OTHER NONCOMPLIANCE WITH MEDICATION REGIMEN Status: Chronic (9) Peripheral neuropathy Code(s): G62.9 - POLYNEUROPATHY, UNSPECIFIED Status: Chronic (10) Tobacco abuse Code(s): Z72.0 - TOBACCO USE Status: Chronic (11) Type II diabetes mellitus Status: Chronic (12) DKA, type 2 Code(s): E11.10 - TYPE 2 DIABETES MELLITUS WITH KETOACIDOSIS WITHOUT COMA Status: Resolved (13) Anemia Code(s): D64.9 - ANEMIA, UNSPECIFIED Status: Acute (14) Anasarca associated with disorder of kidney Code(s): N04.9 - NEPHROTIC SYNDROME WITH UNSPECIFIED MORPHOLOGIC CHANGES Status: Acute (15) Nephrotic syndrome due to diabetes mellitus Code(s): E11.21 - TYPE 2 DIABETES MELLITUS WITH DIABETIC NEPHROPATHY Status: Acute (16) NSTEMI (non-ST elevated myocardial infarction) Code(s): I21.4 - NON-ST ELEVATION (NSTEMI) MYOCARDIAL INFARCTION Status: Acute (17) S/P coronary artery stent placement Status: Acute - Plan cont current plan of care, plan discussed w/ family, continue antibiotics, PT/OT , 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 Review of Systems - Review of Systems Eyes: negative: Pain, Vision Change, Conjunctivae Inflammation, Eyelid Inflammation, Redness, Other ENT: negative: Ear Pain, Ear Discharge, Nose Pain, Nose Discharge, Nose Congestion, Mouth Pain, Mouth Swelling, Throat Pain, Throat Swelling, Other Respiratory: negative: Cough, Dry, Shortness of Breath, Hemoptysis, SOB with Excertion, Pleuritic Pain, Sputum, Wheezing Cardiovascular: edema. negative: chest pain, palpitations, orthopnea, paroxysmal nocturnal dyspnea, light headedness, other Gastrointestinal: negative: Nausea, Vomiting, Abdominal Pain, Diarrhea, Constipation, Melena, Hematochezia, Other Genitourinary: negative: Dysuria, Frequency, Incontinence, Hematuria, Retention , Other Musculoskeletal: negative: Neck Pain, Shoulder Pain, Arm Pain, Back Pain, Hand Pain, Leg Pain, Foot Pain, Other Skin: negative: Rash, Lesions, Jan, Bruising, Other - Medications/Allergies Allergies/Adverse Reactions: Allergies Allergy/AdvReac Type Severity Reaction Status Date / Time camphor Allergy Verified 12/03/17 22:05 ciprofloxacin [From Cipro] Allergy Verified 12/03/17 22:05 hydralazine Allergy Verified 07/17/17 14:46 insulin lispro Allergy Verified 03/07/18 17:34 [From Humalog Mix] insulin lispro protamine Allergy Verified 03/07/18 17:34 [From Humalog Mix] naproxen [From Naprosyn] Allergy Verified 07/17/17 14:46 Medications: Current Medications Acetaminophen (Tylenol) 650 mg PO Q4H PRN PRN Reason: Headache/Fever or Pain Last Admin: 03/09/18 07:52 Dose: 650 mg Hydrocodone Bitart/Acetaminophen ([place] 5/325) 1 tab PO Q4H PRN PRN Reason: Moderate Pain (4-6) Last Admin: 03/16/18 11:13 Dose: 1 tab Artificial Tears (Tears Naturale) 0 drop EA EYE PRN PRN PRN Reason: Dry Eyes Aspirin (Aspirin Chewable) 81 mg PO DAILY [facility] Last Admin: 03/16/18 10:22 Dose: 81 mg Atorvastatin Calcium (Lipitor) 40 mg PO DAILY [facility] Last Admin: 03/16/18 08:09 Dose: 40 mg Bisacodyl (Dulcolax) 10 mg PO DAILYPRN PRN PRN Reason: Constipation Calcium Carbonate (Tums) 1,000 mg PO Q4H PRN PRN Reason: Heartburn or Indigestion Carvedilol (Coreg) 6.25 mg PO BID [facility] Last Admin: 03/16/18 08:06 Dose: 6.25 mg Dextrose/Water (Dextrose 50%) 25 gm SLOW IVP PRN PRN PRN Reason: Hypoglycemia Last Admin: 03/16/18 08:01 Dose: 25 gm Ferrous Sulfate (Feosol) 325 mg PO QAM-WM [facility] Last Admin: 03/16/18 08:09 Dose: 325 mg Fluconazole (Diflucan) 100 mg PO DAILY [facility] Last Admin: 03/16/18 08:08 Dose: 100 mg Furosemide (Lasix) 40 mg PO 0900,1400 [facility] Last Admin: 03/16/18 11:13 Dose: 40 mg Gabapentin (Neurontin) 100 mg PO TID [facility] Last Admin: 03/16/18 08:09 Dose: 100 mg Glucagon (Glucagon) 1 mg IM PRN PRN PRN Reason: Hypoglycemia Guaifenesin (Robitussin Sf) 200 mg PO Q4H PRN PRN Reason: Cough Dextrose/Water (D5w) 1,000 mls @ 0 mls/hr IV .Q0M PRN PRN Reason: Hypoglycemia Isosorbide Mononitrate (Imdur Er) 30 mg PO DAILY [facility] Last Admin: 03/16/18 08:09 Dose: 30 mg Lactulose (Lactulose) 20 gm PO DAILYPRN PRN PRN Reason: Constipation Lidocaine (Lidoderm 5% Patch) 1 patch TD 4234 [facility] Last Admin: 03/16/18 00:15 Dose: Not Given Mineral Oil/White Petrolatum (Eucerin Cream) 0 gm TOP BIDPRN PRN PRN Reason: Dry Skin Miscellaneous Information (Communication Order-Pharmacy) 0 each FS ONE [facility] Stop: 03/16/18 23:59 Miscellaneous Medication (Lidocaine Patch Removal) 1 each TOP 1200 [facility] Last Admin: 03/15/18 11:04 Dose: Not Given Nicotine (Nicoderm Patch) 14 mg TOP Q24HR [facility] Last Admin: 03/15/18 14:00 Dose: 14 mg Nitroglycerin (Nitrostat) 0.4 mg SL Q5MIN PRN PRN Reason: Chest Pain Ondansetron HCl (Zofran Odt) 4 mg PO Q6H PRN PRN Reason: Nausea/Vomiting Ondansetron HCl (Zofran) 4 mg IVP Q6H PRN PRN Reason: Nausea/Vomiting Last Admin: 03/06/18 12:36 Dose: 4 mg Pantoprazole Sodium (Protonix) 40 mg PO DAILY [facility] Last Admin: 03/16/18 08:08 Dose: 40 mg Phenol (Chloraseptic [place] 180 Ml Bot) 0 ml PO PRN PRN PRN Reason: Sore Throat Saccharomyces Boulardii (Florastor) 250 mg PO DAILY [facility] Last Admin: 03/16/18 08:06 Dose: 250 mg Sodium Bicarbonate (Bicarbonate, Sodium) 975 mg PO TID [facility] Last Admin: 03/16/18 08:06 Dose: 975 mg Sodium Chloride (Flush - Normal Saline) 10 ml IVF Q12HR [facility] Last Admin: 03/16/18 08:09 Dose: 10 ml Sodium Chloride (Flush - Normal Saline) 10 ml IVF PRN PRN PRN Reason: Saline Flush Sodium Chloride ([place] Nasal [place] 0.65%) 0 ml EA NARE QIDPRN PRN PRN Reason: Nasal Congestion Temazepam (Restoril) 15 mg PO HSPRN PRN PRN Reason: Insomnia Ticagrelor (Brilinta) 90 mg PO BID [facility] Last Admin: 03/16/18 10:22 Dose: 90 mg
[2018-03-16] MEDS: Nicotine 14 MG PATCH TOP SCH (13:16)
[2018-03-16] MEDS: Lidocaine Patch Removal 1 EACH TOP SCH (13:19)
[2018-03-16] MEDS ORDERED: DOBUTamine 500 mg/250 ml 250 ML IVPB SCH (13:30)
--- NOTE | 2018-03-16 14:08 | PDOC.CTH ---
<Pattie Chapman - Last Filed: 03/16/18 14:10> Cardiology Progress Note - Subjective The pt seen and examined. No overnight events. No cardiac complaints. - Objective Vital Signs Temp Pulse Resp BP BP Pulse Ox 03/16/18 11:12 97.6 F 76 14 97/63 97 03/16/18 08:00 97.4 F L 79 14 109/64 97 03/16/18 04:00 97.6 F 80 18 105/65 Admit Weight 169 lb 1.6 oz Weight 195 lb 03/15/18 03/16/18 03/17/18 06:59 06:59 06:59 Intake Total 795 1080 Output Total 1150 1400 Balance -355 -320 - Physical Examination General/Neuro: alert & oriented x3 Neck: no JVD present Lungs: CTA Heart: RRR Abdomen: soft Extremities: other: (4+ pitting and weeping BLE edema) - Labs Result Diagrams: 03/15/18 17:42 03/16/18 06:15 Troponin/CKMB CK-MB (CK-2) 28.7 ng/mL (0-6.6) H* 03/05/18 18:07 Troponin I 162.370 ng/mL (< 0.028) H* 03/06/18 07:44 - Assessment/Plan 1. S/P Anterior [place] - S/p LHC with stent to LAD on 03/12/18. Plan for another [facility] with stent to RCA tomorrow. Stable with Coreg, ASA, Statin, and Brilinta. Cont. Brilinta. 2. Acute renal insufficiency on CKD stage 4 - Unchanged. Nephrology following. 3. DKA - per primary service. It was very low this AM. Pt. poorly controlled. Noncompliant likely at home. 4. Severe CMY, ischemic - On Lasix IV drip 5mg/h, managed by Cut And Print Machine Operator. Start Dobutamin IV. She will need a cath and likely a Life-Vest on d/c. She will need to be compliant with F/U. 5. HTN - stable 6. UTI - Managed by PCP 7. Anemia - Receiving 2 units of PRBCs on 03/09/18. 8. Current smoker - smoking cessation education given to the pt. 9. Hyperlipidemia - on Statin. 10. Non-compliance with diet and medication regimen - education given to the pt. MAR reviewed * Will need a Life-vest on d/c likey. Review of Systems - Review of Systems Constitutional: reports: no symptoms reported EENTM: reports: no symptoms reported Respiratory: reports: no symptoms reported Cardiac (ROS): reports: no symptoms reported ABD/GI: reports: no symptoms reported : reports: no symptoms reported Musculoskeletal: reports: no symptoms reported Skin: reports: no symptoms reported <Souleymane Robledo - Last Filed: 03/16/18 16:04> Cardiology Progress Note - Objective Vital Signs Temp Pulse Pulse Pulse Resp BP BP 03/16/18 11:12 97.6 F 76 14 03/16/18 10:03 77 78 88/54 L 98/55 L 03/16/18 08:00 97.4 F L 79 14 BP Pulse Ox Pulse Ox Pulse Ox 03/16/18 11:12 97/63 97 03/16/18 10:03 98 100 03/16/18 08:00 109/64 97 Admit Weight 169 lb 1.6 oz Weight 195 lb 03/15/18 03/16/18 03/17/18 06:59 06:59 06:59 Intake Total 795 1080 Output Total 1150 1400 Balance -355 -320 - Labs Result Diagrams: 03/15/18 17:42 03/16/18 06:15 Troponin/CKMB CK-MB (CK-2) 28.7 ng/mL (0-6.6) H* 03/05/18 18:07 Troponin I 162.370 ng/mL (< 0.028) H* 03/06/18 07:44 - Assessment/Plan Pt. seen and eval. by me. She was asymptomatic with the hypoglycemia this AM. The BS is better this afternoon. I will plan for repeat cath tomorrow if she remains stable. In the interim I will add low dose dobutamine to see if the urine output can be increased. She still has significant edema. She denies c/o' s. I agree with the A/P by the BOOSTER PUMP OILER.
[2018-03-17] MEDS: Lidocaine 5% Patch TD SCH ×2 (00:15→23:38)
[2018-03-17] MEDS: HYDROcodone/Acetaminophen 5/325 mg Tablet PO PRN ×4 (03:02→22:03)
[2018-03-17 06:18] LABS: Anion Gap 15 mmol/L (10-20); BUN (Urea Nitrogen) 55 mg/dL (9.8-20.1); Calc. Creatinine Clearance 35 mL/min (70-130); Calcium 8.6 mg/dL (7.8-10.44); Carbon Dioxide 24 mmol/L (22-29); Chloride 106 mmol/L (98-107); Estimated GFR-MDRD 19; Glucose 165 mg/dL (70-105); Potassium 5.5 mmol/L (3.5-5.1); Sodium 139 mmol/L (136-145)
--- NOTE | 2018-03-17 09:08 | PRG ---
Patient Name: TESSA GARRETT Date of service: 03/17/2018 Subjective: Patient was seen and examined at bedside and overnight events noted. Patient denies any shortness of breath or chest pain or palpitation. No history of nausea or vomiting or diarrhea or fever or chills or cramps. Objective: General: This is a well-built female in mild distress. Vital signs: Temperature 98.7, pulse 90, respiratory rate 18, blood pressure 145/76. HEENT: Atraumatic, normocephalic. Oral mucosa is moist. Neck: Supple. Cardiovascular: S1 S2 heard. Rate and rhythm regular. Respiratory: Clear to auscultation. Gastrointestinal: Abdomen is soft. Musculoskeletal: No tenderness. 2+ edema. Dermatologic: No skin rash. Neurologic: Alert and awake and oriented X3. No focal neurologic deficits. Moving all the extremit ies. Psychiatric: Mood and affect normal. LABORATORY DATA: Potassium is 5.5, BUN 55, creatinine is 2.7. ASSESSMENT AND PLAN: 1. Acute kidney injury on chronic kidney disease stage 4 with worsening creatinine and renal functio n. The patient remains fluid overloaded. I do not think is a good time to have another contrast exp osure. Follow with Cardiology. Plan is to give Lasix and monitor renal function. If it gets worse the patient might need dialysis. 2. Cardiorenal syndrome. 3. Edema, chronic. 4. Hypertension. 5. Diabetic nephropathy. 6. Anemia. 7. Hyperkalemia. Limit potassium in the diet and will give one dose of Lasix today. Plan is to try Lasix and monitor renal function closely.
[2018-03-17] MEDS: Gabapentin 100 MG CAP PO SCH ×3 (09:56→21:53)
[2018-03-17] MEDS: Furosemide 40 MG TAB PO SCH (09:58)
[2018-03-17] MEDS: Saccharomyces boulardii 250 MG CAP PO SCH (09:58)
[2018-03-17] MEDS: TICAGRELOR 90 MG TABLET PO SCH ×2 (09:58→21:53)
[2018-03-17] MEDS: Ferrous Sulfate 325 MG TAB PO SCH (09:58)
[2018-03-17] MEDS: Atorvastatin Calcium 40 MG TAB PO SCH (10:02)
[2018-03-17] MEDS: Fluconazole 100 MG TAB PO SCH (10:02)
--- NOTE | 2018-03-17 10:46 | PDOC.CTH ---
Cardiology Progress Note - Objective Vital Signs Temp Pulse Resp BP BP Pulse Ox 03/17/18 09:30 98.2 F 95 18 151/78 H 92 L 03/17/18 03:35 98.7 F 90 12 152/78 H 94 L 03/17/18 00:00 88 20 145/76 H Admit Weight 169 lb 1.6 oz Weight 196 lb 13.965 oz 03/16/18 03/17/18 03/18/18 06:59 06:59 06:59 Intake Total 1080 521 Output Total 1400 800 Balance -320 -279 - Physical Examination General/Neuro: alert & oriented x3 Neck: no JVD present Lungs: CTA Heart: RRR Abdomen: NT/ND Extremities: other: (2-3+ edema) - Labs Result Diagrams: 03/15/18 17:42 03/17/18 05:47 Troponin/CKMB CK-MB (CK-2) 28.7 ng/mL (0-6.6) H* 03/05/18 18:07 Troponin I 162.370 ng/mL (< 0.028) H* 03/06/18 07:44 - Assessment/Plan 1. S/P Anterior MT - S/p LHC with stent to LAD on 03/12/18. Plan for another LHC with stent to RCA when renal function is stable.. Stable with Coreg, ASA, Statin, and Brilinta. Cont. Brilinta. 2. Acute renal insufficiency on CKD stage 4 - creat. increasing. Vol. overloaded. Started on dobutamine yesterday. No significant urine output. Nephrology following. 3. DKA - per primary service. It was stable AM. Pt. poorly controlled. Noncompliant likely at home. 4. Severe CMY, ischemic - On Lasix IV drip 5mg/h, managed by [facility]. Started Dobutamin IV. She will need a cath and likely a Life-Vest on d/c. She will need to be compliant with F/U. 5. HTN - stable 6. UTI - Managed by PCP 7. Anemia - Received 2 units of PRBCs on 03/09/18. 8. Current smoker - smoking cessation education given to the pt. 9. Hyperlipidemia - on Statin. 10. Non-compliance with diet and medication regimen - education given to the pt. MAR reviewed * Will need a Life-vest on d/c likey. 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
--- NOTE | 2018-03-17 11:38 | PDOC.PN ---
- Subjective Encounter Start Date: 03/17/18 Encounter Start Time: 07:00 pt is sleepy today, she was given norco, she has edema, creatinine is elevated, - Objective Resuscitation Status: Resuscitation Status FULL:Full Resuscitation MAR Reviewed: Yes Vital Signs & Weight: Vital Signs (12 hours) Temp Pulse Resp BP BP Pulse Ox 03/17/18 09:30 98.2 F 95 18 151/78 H 92 L 03/17/18 03:35 98.7 F 90 12 152/78 H 94 L 03/17/18 00:00 88 20 145/76 H Weight Admit Weight 169 lb 1.6 oz Weight 196 lb 13.965 oz Most Recent Monitor Data Heart Rate from ECG 94 NIBP 130/85 NIBP BP-Mean 107 Respiration from ECG 18 SpO2 99 I&O: 03/16/18 03/17/18 03/18/18 06:59 06:59 06:59 Intake Total 1080 521 Output Total 1400 800 Balance -320 -279 Result Diagrams: 03/15/18 17:42 03/17/18 05:47 Additional Labs: Accuchecks 03/17/18 03/17/18 03/16/18 06:06 01:14 20:44 POC Glucose 215 H 154 H 151 H 03/16/18 03/16/18 16:52 11:31 POC Glucose 115 H 81 EKG Reviewed by me: Yes (nsr) Phys Exam - Physical Examination Constitutional: NAD HEENT: PERRLA, moist MMs, sclera anicteric Neck: no JVD, supple Respiratory: no wheezing, no rales, no rhonchi reduced air entry [place] base Cardiovascular: RRR, no significant murmur, no rub Gastrointestinal: soft, non-tender, no distention, positive bowel sounds Musculoskeletal: pulses present, edema present Neurological: non-focal, normal sensation, moves all 4 limbs Lymphatic: no nodes Psychiatric: normal affect, A&O x 3 Skin: no rash, normal turgor Dx/Plan (1) Acute renal failure superimposed on stage 3 chronic kidney disease Code(s): N17.9 - ACUTE KIDNEY FAILURE, UNSPECIFIED; N18.3 - CHRONIC KIDNEY DISEASE, STAGE 3 (MODERATE) Status: Acute (2) Acute systolic ACC/AHA stage C congestive heart failure Code(s): I50.21 - ACUTE SYSTOLIC (CONGESTIVE) HEART FAILURE Status: Acute (3) Hypoglycemia associated with type 2 diabetes mellitus Code(s): E11.649 - TYPE 2 DIABETES MELLITUS WITH HYPOGLYCEMIA WITHOUT COMA Status: Acute (4) UTI (urinary tract infection) Status: Acute (5) Anemia, normocytic normochromic Code(s): D64.9 - ANEMIA, UNSPECIFIED Status: Chronic (6) HTN (hypertension) Code(s): I10 - ESSENTIAL (PRIMARY) HYPERTENSION Status: Chronic (7) Hyperlipidemia Code(s): E78.5 - HYPERLIPIDEMIA, UNSPECIFIED Status: Chronic (8) Noncompliance with diet and medication regimen Code(s): Z91.11 - PATIENT'S NONCOMPLIANCE WITH DIETARY REGIMEN; Z91.14 - PATIENT 'S OTHER NONCOMPLIANCE WITH MEDICATION REGIMEN Status: Chronic (9) Peripheral neuropathy Code(s): G62.9 - POLYNEUROPATHY, UNSPECIFIED Status: Chronic (10) Tobacco abuse Code(s): Z72.0 - TOBACCO USE Status: Chronic (11) Type II diabetes mellitus Status: Chronic (12) DKA, type 2 Code(s): E11.10 - TYPE 2 DIABETES MELLITUS WITH KETOACIDOSIS WITHOUT COMA Status: Resolved (13) Anemia Code(s): D64.9 - ANEMIA, UNSPECIFIED Status: Acute (14) Anasarca associated with disorder of kidney Code(s): N04.9 - NEPHROTIC SYNDROME WITH UNSPECIFIED MORPHOLOGIC CHANGES Status: Acute (15) Nephrotic syndrome due to diabetes mellitus Code(s): E11.21 - TYPE 2 DIABETES MELLITUS WITH DIABETIC NEPHROPATHY Status: Acute (16) NSTEMI (non-ST elevated myocardial infarction) Code(s): I21.4 - NON-ST ELEVATION (NSTEMI) MYOCARDIAL INFARCTION Status: Acute (17) S/P coronary artery stent placement Status: Acute - Plan cont current plan of care, plan discussed w/ family * continue dobutamine drip * continue diuresis * medication reviewed as below * symptomatic treatment * today cardiac cath cancelled * monitor renal function * prognosis guarded Review of Systems - Review of Systems Eyes: negative: Pain, Vision Change, Conjunctivae Inflammation, Eyelid Inflammation, Redness, Other ENT: negative: Ear Pain, Ear Discharge, Nose Pain, Nose Discharge, Nose Congestion, Mouth Pain, Mouth Swelling, Throat Pain, Throat Swelling, Other Respiratory: negative: Cough, Dry, Shortness of Breath, Hemoptysis, SOB with Excertion, Pleuritic Pain, Sputum, Wheezing Cardiovascular: edema Gastrointestinal: negative: Nausea, Vomiting, Abdominal Pain, Diarrhea, Constipation, Melena, Hematochezia, Other Genitourinary: negative: Dysuria, Frequency, Incontinence, Hematuria, Retention , Other Musculoskeletal: negative: Neck Pain, Shoulder Pain, Arm Pain, Back Pain, Hand Pain, Leg Pain, Foot Pain, Other Skin: negative: Rash, Lesions, Jan, Bruising, Other - Medications/Allergies Allergies/Adverse Reactions: Allergies Allergy/AdvReac Type Severity Reaction Status Date / Time camphor Allergy Verified 12/03/17 22:05 ciprofloxacin [From Cipro] Allergy Verified 12/03/17 22:05 hydralazine Allergy Verified 07/17/17 14:46 insulin lispro Allergy Verified 03/07/18 17:34 [From Humalog Mix] insulin lispro protamine Allergy Verified 03/07/18 17:34 [From Humalog Mix] naproxen [From Naprosyn] Allergy Verified 07/17/17 14:46 Medications: Current Medications Acetaminophen (Tylenol) 650 mg PO Q4H PRN PRN Reason: Headache/Fever or Pain Last Admin: 03/09/18 07:52 Dose: 650 mg Hydrocodone Bitart/Acetaminophen ([place] 5/325) 1 tab PO Q4H PRN PRN Reason: Moderate Pain (4-6) Last Admin: 03/17/18 10:01 Dose: 1 tab Artificial Tears (Tears Naturale) 0 drop EA EYE PRN PRN PRN Reason: Dry Eyes Aspirin (Aspirin Chewable) 81 mg PO DAILY [facility] Last Admin: 03/17/18 10:02 Dose: 81 mg Atorvastatin Calcium (Lipitor) 40 mg PO DAILY [facility] Last Admin: 03/17/18 10:02 Dose: 40 mg Bisacodyl (Dulcolax) 10 mg PO DAILYPRN PRN PRN Reason: Constipation Calcium Carbonate (Tums) 1,000 mg PO Q4H PRN PRN Reason: Heartburn or Indigestion Carvedilol (Coreg) 6.25 mg PO BID [facility] Dextrose/Water (Dextrose 50%) 25 gm SLOW IVP PRN PRN PRN Reason: Hypoglycemia Last Admin: 03/16/18 08:01 Dose: 25 gm Ferrous Sulfate (Feosol) 325 mg PO QA-[facility] Last Admin: 03/17/18 09:58 Dose: 325 mg Fluconazole (Diflucan) 100 mg PO DAILY [facility] Last Admin: 03/17/18 10:02 Dose: 100 mg Furosemide (Lasix) 40 mg PO 0900,1400 [facility] Last Admin: 03/17/18 09:58 Dose: 40 mg Furosemide (Lasix) 40 mg SLOW IVP 0600,1400 [facility] Gabapentin (Neurontin) 100 mg PO TID [facility] Last Admin: 03/17/18 09:56 Dose: 100 mg Glucagon (Glucagon) 1 mg IM PRN PRN PRN Reason: Hypoglycemia Guaifenesin (Robitussin Sf) 200 mg PO Q4H PRN PRN Reason: Cough Dextrose/Water (D5w) 1,000 mls @ 0 mls/hr IV .Q0M PRN PRN Reason: Hypoglycemia Dobutamine HCl 1,000 mg/ (Dextrose/Water) 250 mls @ 0 mls/hr IVPB INF [facility] Last Admin: 03/16/18 14:50 Dose: 250 mls Isosorbide Mononitrate (Imdur Er) 60 mg PO DAILY [facility] Lactulose (Lactulose) 20 gm PO DAILYPRN PRN PRN Reason: Constipation Lidocaine (Lidoderm 5% Patch) 1 patch TD 2359 [facility] Last Admin: 03/17/18 00:15 Dose: Not Given Mineral Oil/White Petrolatum (Eucerin Cream) 0 gm TOP BIDPRN PRN PRN Reason: Dry Skin Miscellaneous Medication (Lidocaine Patch Removal) 1 each TOP 1200 [facility] Last Admin: 03/16/18 13:19 Dose: Not Given Nicotine (Nicoderm Patch) 14 mg TOP Q24HR [facility] Last Admin: 03/16/18 13:16 Dose: 14 mg Nitroglycerin (Nitrostat) 0.4 mg SL Q5MIN PRN PRN Reason: Chest Pain Ondansetron HCl (Zofran Odt) 4 mg PO Q6H PRN PRN Reason: Nausea/Vomiting Ondansetron HCl (Zofran) 4 mg IVP Q6H PRN PRN Reason: Nausea/Vomiting Last Admin: 03/06/18 12:36 Dose: 4 mg Pantoprazole Sodium (Protonix) 40 mg PO DAILY [facility] Last Admin: 03/17/18 10:01 Dose: 40 mg Phenol (Chloraseptic [place] 180 Ml Bot) 0 ml PO PRN PRN PRN Reason: Sore Throat Saccharomyces Boulardii (Florastor) 250 mg PO DAILY [facility] Last Admin: 03/17/18 09:58 Dose: 250 mg Sodium Chloride (Flush - Normal Saline) 10 ml IVF Q12HR [facility] Last Admin: 03/17/18 10:02 Dose: Not Given Sodium Chloride (Flush - Normal Saline) 10 ml IVF PRN PRN PRN Reason: Saline Flush Sodium Chloride ([place] Nasal [place] 0.65%) 0 ml EA NARE QIDPRN PRN PRN Reason: Nasal Congestion Temazepam (Restoril) 15 mg PO HSPRN PRN PRN Reason: Insomnia Ticagrelor (Brilinta) 90 mg PO BID [facility] Last Admin: 03/17/18 09:58 Dose: 90 mg
--- NOTE | 2018-03-17 13:51 | PDOC.CTH ---
Cardiology Progress Note - Objective Vital Signs Temp Pulse Resp BP BP Pulse Ox 03/17/18 09:30 98.2 F 95 18 151/78 H 92 L 03/17/18 03:35 98.7 F 90 12 152/78 H 94 L Admit Weight 169 lb 1.6 oz Weight 196 lb 13.965 oz 03/16/18 03/17/18 03/18/18 06:59 06:59 06:59 Intake Total 1080 521 Output Total 1400 800 Balance -320 -279 - Labs Result Diagrams: 03/15/18 17:42 03/17/18 05:47 Troponin/CKMB CK-MB (CK-2) 28.7 ng/mL (0-6.6) H* 03/05/18 18:07 Troponin I 162.370 ng/mL (< 0.028) H* 03/06/18 07:44
[2018-03-17] MEDS: Nicotine 14 MG PATCH TOP SCH (14:48)
[2018-03-17] MEDS: Furosemide 40 MG/4 ML VIAL SLOW IVP SCH (14:48)
[2018-03-17] MEDS: Lidocaine Patch Removal 1 EACH TOP SCH (14:48)
[2018-03-17] MEDS: Insulin Regular 300 UNITS/3 ML VIAL SC PRN ×2 (18:12→21:53)
[2018-03-17] MEDS: Carvedilol 3.125 MG TAB PO SCH (22:30)
[2018-03-18 06:05] LABS: Anion Gap 12 mmol/L (10-20); BUN (Urea Nitrogen) 55 mg/dL (9.8-20.1); Calc. Creatinine Clearance 36 mL/min (70-130); Calcium 8.7 mg/dL (7.8-10.44); Carbon Dioxide 26 mmol/L (22-29); Chloride 102 mmol/L (98-107); Estimated GFR-MDRD 19; Glucose 276 mg/dL (70-105); Potassium 5.4 mmol/L (3.5-5.1); Sodium 135 mmol/L (136-145)
[2018-03-18] MEDS: Furosemide 40 MG/4 ML VIAL SLOW IVP SCH ×2 (06:26→13:34)
[2018-03-18] MEDS: Ferrous Sulfate 325 MG TAB PO SCH (09:13)
[2018-03-18] MEDS: Atorvastatin Calcium 40 MG TAB PO SCH (09:14)
[2018-03-18] MEDS: Carvedilol 3.125 MG TAB PO SCH ×2 (09:14→20:43)
[2018-03-18] MEDS: Fluconazole 100 MG TAB PO SCH (09:15)
[2018-03-18] MEDS: Gabapentin 100 MG CAP PO SCH ×3 (09:15→20:44)
[2018-03-18] MEDS: Saccharomyces boulardii 250 MG CAP PO SCH (09:16)
[2018-03-18] MEDS: HYDROcodone/Acetaminophen 5/325 mg Tablet PO PRN ×3 (09:16→20:45)
[2018-03-18] MEDS: TICAGRELOR 90 MG TABLET PO SCH ×2 (09:16→20:44)
--- NOTE | 2018-03-18 10:40 | PDOC.PN ---
- Subjective Encounter Start Date: 03/18/18 Encounter Start Time: 07:30 Patient seen and examined. No new complaints. No overnight events - Objective Resuscitation Status: Resuscitation Status FULL:Full Resuscitation MAR Reviewed: Yes Vital Signs & Weight: Vital Signs (12 hours) Temp Pulse Resp BP BP Pulse Ox 03/18/18 07:27 97.8 F 91 16 130/79 95 03/18/18 04:00 97.8 F 86 16 135/77 95 03/18/18 00:00 88 20 131/79 Weight Admit Weight 169 lb 1.6 oz Weight 192 lb 10.944 oz Most Recent Monitor Data Heart Rate from ECG 94 NIBP 130/85 NIBP BP-Mean 107 Respiration from ECG 18 SpO2 99 I&O: 03/17/18 03/18/18 03/19/18 06:59 06:59 06:59 Intake Total 521 1535.8 Output Total 800 3650 Balance -279 -2114.2 Result Diagrams: 03/15/18 17:42 03/18/18 05:19 Additional Labs: Accuchecks 03/18/18 03/17/18 03/17/18 06:01 20:48 17:11 POC Glucose 265 H 442 H 434 H 03/17/18 11:31 POC Glucose 293 H EKG Reviewed by me: Yes (nsr) Phys Exam - Physical Examination Constitutional: NAD HEENT: PERRLA, moist MMs, sclera anicteric Neck: no JVD, supple Respiratory: no wheezing, no rhonchi reduced [place] Cardiovascular: RRR, no significant murmur, no rub Gastrointestinal: soft, non-tender, no distention, positive bowel sounds obesity+ Musculoskeletal: pulses present, edema present anasarca+ Neurological: non-focal, normal sensation, moves all 4 limbs Lymphatic: no nodes Psychiatric: normal affect, A&O x 3 Skin: no rash, normal turgor Dx/Plan (1) Acute renal failure superimposed on stage 3 chronic kidney disease Code(s): N17.9 - ACUTE KIDNEY FAILURE, UNSPECIFIED; N18.3 - CHRONIC KIDNEY DISEASE, STAGE 3 (MODERATE) Status: Acute (2) Acute systolic ACC/AHA stage C congestive heart failure Code(s): I50.21 - ACUTE SYSTOLIC (CONGESTIVE) HEART FAILURE Status: Acute (3) Hypoglycemia associated with type 2 diabetes mellitus Code(s): E11.649 - TYPE 2 DIABETES MELLITUS WITH HYPOGLYCEMIA WITHOUT COMA Status: Acute (4) UTI (urinary tract infection) Status: Acute (5) Anemia, normocytic normochromic Code(s): D64.9 - ANEMIA, UNSPECIFIED Status: Chronic (6) HTN (hypertension) Code(s): I10 - ESSENTIAL (PRIMARY) HYPERTENSION Status: Chronic (7) Hyperlipidemia Code(s): E78.5 - HYPERLIPIDEMIA, UNSPECIFIED Status: Chronic (8) Noncompliance with diet and medication regimen Code(s): Z91.11 - PATIENT'S NONCOMPLIANCE WITH DIETARY REGIMEN; Z91.14 - PATIENT 'S OTHER NONCOMPLIANCE WITH MEDICATION REGIMEN Status: Chronic (9) Peripheral neuropathy Code(s): G62.9 - POLYNEUROPATHY, UNSPECIFIED Status: Chronic (10) Tobacco abuse Code(s): Z72.0 - TOBACCO USE Status: Chronic (11) Type II diabetes mellitus Status: Chronic (12) DKA, type 2 Code(s): E11.10 - TYPE 2 DIABETES MELLITUS WITH KETOACIDOSIS WITHOUT COMA Status: Resolved (13) Anemia Code(s): D64.9 - ANEMIA, UNSPECIFIED Status: Acute (14) Anasarca associated with disorder of kidney Code(s): N04.9 - NEPHROTIC SYNDROME WITH UNSPECIFIED MORPHOLOGIC CHANGES Status: Acute (15) Nephrotic syndrome due to diabetes mellitus Code(s): E11.21 - TYPE 2 DIABETES MELLITUS WITH DIABETIC NEPHROPATHY Status: Acute (16) NSTEMI (non-ST elevated myocardial infarction) Code(s): I21.4 - NON-ST ELEVATION (NSTEMI) MYOCARDIAL INFARCTION Status: Acute (17) S/P coronary artery stent placement Status: Acute - Plan cont current plan of care, plan discussed w/ family * start lantus 5 unit sc bid * human regular as per sliding scale * renal function are not optimal for cardiac cath, there is no other option as well * in future she will need HD, * she still has anasarca * continue dobutamine and diuresis * medication reviewed as below * symptomatic treatment. Review of Systems - Review of Systems Constitutional: negative: fever, chills, sweats, weakness, malaise, other Eyes: negative: Pain, Vision Change, Conjunctivae Inflammation, Eyelid Inflammation, Redness, Other ENT: negative: Ear Pain, Ear Discharge, Nose Pain, Nose Discharge, Nose Congestion, Mouth Pain, Mouth Swelling, Throat Pain, Throat Swelling, Other Respiratory: negative: Cough, Dry, Shortness of Breath, Hemoptysis, SOB with Excertion, Pleuritic Pain, Sputum, Wheezing Cardiovascular: edema. negative: chest pain, palpitations, orthopnea, paroxysmal nocturnal dyspnea, light headedness, other Gastrointestinal: negative: Nausea, Vomiting, Abdominal Pain, Diarrhea, Constipation, Melena, Hematochezia, Other Genitourinary: negative: Dysuria, Frequency, Incontinence, Hematuria, Retention , Other Musculoskeletal: negative: Neck Pain, Shoulder Pain, Arm Pain, Back Pain, Hand Pain, Leg Pain, Foot Pain, Other - Medications/Allergies Allergies/Adverse Reactions: Allergies Allergy/AdvReac Type Severity Reaction Status Date / Time camphor Allergy Verified 12/03/17 22:05 ciprofloxacin [From Cipro] Allergy Verified 12/03/17 22:05 hydralazine Allergy Verified 07/17/17 14:46 insulin lispro Allergy Verified 03/07/18 17:34 [From Humalog Mix] insulin lispro protamine Allergy Verified 03/07/18 17:34 [From Humalog Mix] naproxen [From Naprosyn] Allergy Verified 07/17/17 14:46 Medications: Current Medications Acetaminophen (Tylenol) 650 mg PO Q4H PRN PRN Reason: Headache/Fever or Pain Last Admin: 03/09/18 07:52 Dose: 650 mg Hydrocodone Bitart/Acetaminophen ([place] 5/325) 1 tab PO Q4H PRN PRN Reason: Moderate Pain (4-6) Last Admin: 03/18/18 09:16 Dose: 1 tab Artificial Tears (Tears Naturale) 0 drop EA EYE PRN PRN PRN Reason: Dry Eyes Aspirin (Aspirin Chewable) 81 mg PO DAILY [facility] Last Admin: 03/18/18 09:13 Dose: 81 mg Atorvastatin Calcium (Lipitor) 40 mg PO DAILY [facility] Last Admin: 03/18/18 09:14 Dose: 40 mg Bisacodyl (Dulcolax) 10 mg PO DAILYPRN PRN PRN Reason: Constipation Calcium Carbonate (Tums) 1,000 mg PO Q4H PRN PRN Reason: Heartburn or Indigestion Carvedilol (Coreg) 6.25 mg PO BID [facility] Last Admin: 03/18/18 09:14 Dose: 6.25 mg Dextrose/Water (Dextrose 50%) 25 gm SLOW IVP PRN PRN PRN Reason: Hypoglycemia Last Admin: 03/16/18 08:01 Dose: 25 gm Ferrous Sulfate (Feosol) 325 mg PO QAM-WM [facility] Last Admin: 03/18/18 09:13 Dose: 325 mg Fluconazole (Diflucan) 100 mg PO DAILY [facility] Last Admin: 03/18/18 09:15 Dose: 100 mg Furosemide (Lasix) 40 mg SLOW IVP 0600,1400 [facility] Last Admin: 03/18/18 06:26 Dose: 40 mg Gabapentin (Neurontin) 100 mg PO TID [facility] Last Admin: 03/18/18 09:15 Dose: 100 mg Glucagon (Glucagon) 1 mg IM PRN PRN PRN Reason: Hypoglycemia Guaifenesin (Robitussin Sf) 200 mg PO Q4H PRN PRN Reason: Cough Dextrose/Water (D5w) 1,000 mls @ 0 mls/hr IV .Q0M PRN PRN Reason: Hypoglycemia Dobutamine HCl 1,000 mg/ (Dextrose/Water) 250 mls @ 0 mls/hr IVPB INF [facility] Last Admin: 03/16/18 14:50 Dose: 250 mls Insulin Glargine 5 units/ (Miscellaneous Medication) 0.05 mls @ 0 mls/hr SC HS [facility] Insulin Glargine 5 units/ (Miscellaneous Medication) 0.05 mls @ 0 mls/hr [facility] Insulin Human Regular (Humulin R) 0 units SC .MILD SLIDING PRN; Protocol PRN Reason: MILD SLIDING SCALE Last Admin: 03/17/18 21:53 Dose: 6 unit Isosorbide Mononitrate (Imdur Er) 60 mg PO DAILY [facility] Last Admin: 03/18/18 09:15 Dose: 60 mg Lactulose (Lactulose) 20 gm PO DAILYPRN PRN PRN Reason: Constipation Lidocaine (Lidoderm 5% Patch) 1 patch TD 3069 [facility] Last Admin: 03/17/18 23:38 Dose: Not Given Mineral Oil/White Petrolatum (Eucerin Cream) 0 gm TOP BIDPRN PRN PRN Reason: Dry Skin Miscellaneous Medication (Lidocaine Patch Removal) 1 each TOP 1200 [facility] Last Admin: 03/17/18 14:48 Dose: Not Given Nicotine (Nicoderm Patch) 14 mg TOP Q24HR [facility] Last Admin: 03/17/18 14:48 Dose: 14 mg Nitroglycerin (Nitrostat) 0.4 mg SL Q5MIN PRN PRN Reason: Chest Pain Ondansetron HCl (Zofran Odt) 4 mg PO Q6H PRN PRN Reason: Nausea/Vomiting Ondansetron HCl (Zofran) 4 mg IVP Q6H PRN PRN Reason: Nausea/Vomiting Last Admin: 03/06/18 12:36 Dose: 4 mg Pantoprazole Sodium (Protonix) 40 mg PO DAILY [facility] Last Admin: 03/18/18 09:16 Dose: 40 mg Phenol (Chloraseptic [place] 180 Ml Bot) 0 ml PO PRN PRN PRN Reason: Sore Throat Saccharomyces Boulardii (Florastor) 250 mg PO DAILY [facility] Last Admin: 03/18/18 09:16 Dose: 250 mg Sodium Chloride (Flush - Normal Saline) 10 ml IVF Q12HR [facility] Last Admin: 03/18/18 09:18 Dose: Not Given Sodium Chloride (Flush - Normal Saline) 10 ml IVF PRN PRN PRN Reason: Saline Flush Last Admin: 03/18/18 06:27 Dose: 10 ml Sodium Chloride ([place] Nasal [place] 0.65%) 0 ml EA NARE QIDPRN PRN PRN Reason: Nasal Congestion Temazepam (Restoril) 15 mg PO HSPRN PRN PRN Reason: Insomnia Ticagrelor (Brilinta) 90 mg PO BID [facility] Last Admin: 03/18/18 09:16 Dose: 90 mg
[2018-03-18] MEDS: Lidocaine Patch Removal 1 EACH TOP SCH (12:22)
--- NOTE | 2018-03-18 13:44 | PDOC.CTH ---
<Pattie Chapman - Last Filed: 03/18/18 13:45> Cardiology Progress Note - Subjective The pt seen and examined. No overnight events. No cardiac complaints. She stated she cannot wear compression stocking which causes increasing of pain to BLE. - Objective Vital Signs Temp Pulse Resp BP BP Pulse Ox 03/18/18 12:24 98.5 F 101 H 16 130/74 95 03/18/18 07:27 97.8 F 91 16 130/79 95 03/18/18 04:00 97.8 F 86 16 135/77 95 Admit Weight 169 lb 1.6 oz Weight 192 lb 10.944 oz 03/17/18 03/18/18 03/19/18 06:59 06:59 06:59 Intake Total 521 1535.8 Output Total 800 3650 Balance -279 -2114.2 - Physical Examination General/Neuro: alert & oriented x3 Neck: no JVD present Lungs: other: (diminished at baseds) Heart: RRR Abdomen: soft Extremities: other: (4+ pitting edema) - Telemetry Telemetry Rhythm: SR - Labs Result Diagrams: 03/15/18 17:42 03/18/18 05:19 Troponin/CKMB CK-MB (CK-2) 28.7 ng/mL (0-6.6) H* 03/05/18 18:07 Troponin I 162.370 ng/mL (< 0.028) H* 03/06/18 07:44 - Assessment/Plan 1. S/P Anterior [place] - S/p LHC with stent to LAD on 03/12/18. Plan for another [facility] with stent to RCA when renal function is stable. On Coreg, ASA, Statin, and Brilinta. Cont. Brilinta. 2. Acute renal insufficiency on CKD stage 4 - creat. increasing. Vol. overloaded. Started on dobutamine. Lasix 40mg IV daily by respiratory scientist. No significant urine output. Nephrology following. 3. DKA - per primary service. It was stable AM. Pt. poorly controlled. Noncompliant likely at home. 4. Severe CMY, ischemic - On Lasix IV drip 5mg/h, managed by User Support Specialist. Started Dobutamin IV. She will need a cath and likely a Life-Vest on d/c. She will need to be compliant with F/U. 5. HTN - stable 6. UTI - Managed by PCP 7. Anemia - Received 2 units of PRBCs on 03/09/18. 8. Current smoker - smoking cessation education given to the pt. 9. Hyperlipidemia - on Statin. 10. Non-compliance with diet and medication regimen - education given to the pt. MAR reviewed * Will need a Life-vest on d/c likey. prognosis is not good fdc. * Review of Systems - Review of Systems Constitutional: reports: no symptoms reported EENTM: reports: no symptoms reported Respiratory: reports: no symptoms reported Cardiac (ROS): reports: no symptoms reported ABD/GI: reports: no symptoms reported : reports: no symptoms reported Musculoskeletal: reports: no symptoms reported Skin: reports: no symptoms reported <Souleymane Robledo - Last Filed: 03/18/18 18:48> Cardiology Progress Note - Subjective pt. seen and evaluated by me. I agree with the A/P by the STEAM TURBINE ASSEMBLER. She had improved diuresis yesterday. she still has increased vol. on board. I thhink she should be able to tolerate the second stent tomorrow. plan for cath in AM. She will still need diuresis prior tod/c. - Objective Vital Signs Temp Pulse Resp BP Pulse Ox 03/18/18 12:24 98.5 F 101 H 16 130/74 95 03/18/18 07:27 97.8 F 91 16 130/79 95 Admit Weight 169 lb 1.6 oz Weight 192 lb 10.944 oz 03/17/18 03/18/18 03/19/18 06:59 06:59 06:59 Intake Total 521 1535.8 750 Output Total 800 3650 1250 Balance -279 -2114.2 -500 - Labs Result Diagrams: 03/15/18 17:42 03/18/18 05:19 Troponin/CKMB CK-MB (CK-2) 28.7 ng/mL (0-6.6) H* 03/05/18 18:07 Troponin I 162.370 ng/mL (< 0.028) H* 03/06/18 07:44
[2018-03-18] MEDS: Nicotine 14 MG PATCH TOP SCH (15:34)
[2018-03-18] MEDS: Insulin Regular 300 UNITS/3 ML VIAL SC PRN ×2 (17:27→21:40)
--- NOTE | 2018-03-18 17:29 | PRG ---
DATE OF SERVICE: 03/18/2018 SUBJECTIVE: Patient was seen and examined at bedside and overnight events noted. Patient denies any shortness of breath or chest pain or palpitation. No history of nausea or vomiting or diarrhea or f ever or chills or cramps. OBJECTIVE: GENERAL: This is a well-built female, in no apparent distress. VITAL SIGNS: Temperature 98.5, pulse 91, respiratory rate 18, blood pressure 130/74. HEENT: Atraumatic, normocephalic. Oral mucosa is moist. NECK: Supple. CARDIOVASCULAR: S1, S2 heard, Rate and rhythm regular. RESPIRATORY: Clear to auscultation. GASTROINTESTINAL: Abdomen is soft. MUSCULOSKELETAL: 2+ edema. DERMATOLOGIC: No skin rash NEUROLOGIC: Alert and awake and oriented X3, No focal neurologic deficits. Moving all the extremitie s. PSYCHIATRIC: Mood and affect normal LABORATORY DATA: Potassium 5.4, BUN 55, creatinine is 2.6. ASSESSMENT: 1. Acute kidney injury on chronic kidney disease stage 4. 2. Renal function with stable creatinine, with good urine output. We will continue on Lasix as tole rated. Plan discussed with Cardiology. Plan is to hold heart catheterization for now. 3. Cardiorenal syndrome. 4. Edema, chronic. 5. Hypertension. 6. Diabetic nephropathy. 7. Proteinuria. 8. Anemia. 9. Hyperkalemia. Limit potassium in the diet. 10. Limit potassium and fluid intake. We will continue on Lasix as tolerated, monitor renal functio n closely.
[2018-03-18] MEDS ORDERED: Communication Order-Pharmacy FS SCH (18:45)
[2018-03-18] MEDS: Lidocaine 5% Patch TD SCH (20:45)
[2018-03-18] MEDS ORDERED: Insulin Glargine 5 UNITS in Pre-Filled Syringe 1 EACH SC SCH (21:00)
[2018-03-19 05:52] LABS: Anion Gap 16 mmol/L (10-20); BUN (Urea Nitrogen) 58 mg/dL (9.8-20.1); Calc. Creatinine Clearance 34 mL/min (70-130); Calcium 8.7 mg/dL (7.8-10.44); Carbon Dioxide 22 mmol/L (22-29); Chloride 103 mmol/L (98-107); Estimated GFR-MDRD 19; Glucose 385 mg/dL (70-105); Magnesium 1.9 mg/dL (1.6-2.6); Potassium 5.5 mmol/L (3.5-5.1); Sodium 135 mmol/L (136-145)
[2018-03-19] MEDS: Atorvastatin Calcium 40 MG TAB PO SCH (05:55)
[2018-03-19] MEDS: Carvedilol 3.125 MG TAB PO SCH ×2 (05:55→20:08)
[2018-03-19] MEDS: Fluconazole 100 MG TAB PO SCH (05:55)
[2018-03-19] MEDS: TICAGRELOR 90 MG TABLET PO SCH ×2 (05:56→20:09)
[2018-03-19] MEDS: Saccharomyces boulardii 250 MG CAP PO SCH (05:56)
[2018-03-19] MEDS: Gabapentin 100 MG CAP PO SCH ×3 (05:56→20:08)
[2018-03-19] MEDS ORDERED: Lidocaine 1% (PF) 30 ML VIAL ONE (06:42)
[2018-03-19] MEDS ORDERED: Heparin 10,000 UNITS/1 ML VIAL ONE (07:44)
[2018-03-19] MEDS ORDERED: Nitroglycerin 100MG/250ML BOT 0 ML ONE (07:44)
[2018-03-19] MEDS ORDERED: Insulin Glargine 15 UNITS in Pre-Filled Syringe 1 EACH SC SCH ×2 (09:00→21:00)
[2018-03-19] MEDS ORDERED: Insulin Glargine 5 UNITS in Pre-Filled Syringe 1 EACH SC SCH (09:00)
[2018-03-19] MEDS: Furosemide 40 MG/4 ML VIAL SLOW IVP SCH (09:46)
[2018-03-19] MEDS ORDERED: Iopamidol 370 76% 100 ML VIAL ONE (10:21)
[2018-03-19] MEDS ORDERED: Iopamidol 370 76% 50 ML VIAL FS ONE (10:21)
--- NOTE | 2018-03-19 10:42 | PRG ---
Patient Name: TESSA GARRETT Date of service: 03/19/2018 Subjective: Patient was seen and examined at bedside and overnight events noted. Patient denies any shortness of breath or chest pain or palpitation. No history of nausea or vomiting or diarrhea or fever or chills or cramps. Objective: General: This is an obese female in no apparent distress. Vital signs: Blood pressure 140/80. HEENT: Atraumatic, normocephalic. Oral mucosa is moist. Neck: Supple. Cardiovascular: S1 S2 heard. Rate and rhythm regular. Respiratory: Clear to auscultation. Gastrointestinal: Abdomen is soft. Musculoskeletal: No tenderness. 2+ edema. Dermatologic: No skin rash. Neurologic: Alert and awake and oriented X3. No focal neurologic deficits. Moving all the extremit ies. Psychiatric: Mood and affect normal. DATE OF SERVICE 03/21/2018. Edema GENERAL: This is an obese female in no apparent distress. VITAL SIGNS: Blood pressure 140/81. MUSCULOSKELETAL: 2+ edema. LABORATORY DATA: Potassium is 5.5, BUN 58, creatinine is 2.6. ASSESSMENT AND PLAN: 1. Acute kidney injury on chronic kidney stage 4. Renal function seems to be stable. The patient h ad a repeat heart catheterization today with contrast exposure. Plan is to hold the Lasix for today. Liberalize fluid intake to 2 liters per day and monitor. 2. Hyperkalemia. We will give a dose of Kayexalate. 3. Hyperglycemia. 4. Edema. We will monitor and we will follow. 5. Diabetic nephropathy with proteinuria. 6. Anemia. 7. Hypertension, stable. 8. Cardiorenal syndrome. Follow with Cardiology. Prognosis is guarded. We will check iron studies in the morning and give a dose of Epo as tolerated. We will hold Lasix for now. Follow with Cardiology for further plans.
--- NOTE | 2018-03-19 11:18 | PDOC.PN ---
- Subjective Encounter Start Date: 03/19/18 Encounter Start Time: 07:15 pt is planned for cardiac cath later today, no new complaints, still has edema, renal function stable - Objective Resuscitation Status: Resuscitation Status FULL:Full Resuscitation MAR Reviewed: Yes Vital Signs & Weight: Vital Signs (12 hours) Temp Pulse Resp BP Pulse Ox 03/19/18 07:10 97.7 F 79 16 140/81 96 03/19/18 04:00 98.2 F 78 16 117/71 97 03/19/18 00:35 80 120/79 Weight Admit Weight 169 lb 1.6 oz Weight 193 lb 6.4 oz Most Recent Monitor Data Heart Rate from ECG 94 NIBP 130/85 NIBP BP-Mean 107 Respiration from ECG 18 SpO2 99 I&O: 03/18/18 03/19/18 03/20/18 06:59 06:59 06:59 Intake Total 1535.8 1029.6 Output Total 3650 2050 Balance -2114.2 -1020.4 Result Diagrams: 03/15/18 17:42 03/19/18 05:20 Additional Labs: Accuchecks 03/19/18 03/18/18 03/18/18 04:05 20:49 16:59 POC Glucose 382 H 464 H 383 H 03/18/18 03/16/18 10:39 07:01 POC Glucose 328 H 80 EKG Reviewed by me: Yes (nsr) Phys Exam - Physical Examination Constitutional: NAD HEENT: PERRLA, moist MMs, sclera anicteric Neck: no JVD, supple Respiratory: no wheezing, no rales, no rhonchi reduced air entry Cardiovascular: RRR, no significant murmur, no rub Gastrointestinal: soft, non-tender, no distention, positive bowel sounds obesity+ Musculoskeletal: pulses present, edema present Neurological: non-focal, normal sensation Lymphatic: no nodes Psychiatric: normal affect, A&O x 3 Skin: no rash, normal turgor Dx/Plan (1) NSTEMI (non-ST elevated myocardial infarction) Code(s): I21.4 - NON-ST ELEVATION (NSTEMI) MYOCARDIAL INFARCTION Status: Acute Comment: s/p cardiac cath and stent placement (2) S/P coronary artery stent placement Status: Acute (3) Acute systolic ACC/AHA stage C congestive heart failure Code(s): I50.21 - ACUTE SYSTOLIC (CONGESTIVE) HEART FAILURE Status: Acute (4) Acute renal failure superimposed on stage 3 chronic kidney disease Code(s): N17.9 - ACUTE KIDNEY FAILURE, UNSPECIFIED; N18.3 - CHRONIC KIDNEY DISEASE, STAGE 3 (MODERATE) Status: Acute (5) Anasarca associated with disorder of kidney Code(s): N04.9 - NEPHROTIC SYNDROME WITH UNSPECIFIED MORPHOLOGIC CHANGES Status: Acute (6) Hypoglycemia associated with type 2 diabetes mellitus Code(s): E11.649 - TYPE 2 DIABETES MELLITUS WITH HYPOGLYCEMIA WITHOUT COMA Status: Resolved (7) UTI (urinary tract infection) Status: Acute (8) Anemia, normocytic normochromic Code(s): D64.9 - ANEMIA, UNSPECIFIED Status: Chronic (9) HTN (hypertension) Code(s): I10 - ESSENTIAL (PRIMARY) HYPERTENSION Status: Chronic (10) Hyperlipidemia Code(s): E78.5 - HYPERLIPIDEMIA, UNSPECIFIED Status: Chronic (11) Noncompliance with diet and medication regimen Code(s): Z91.11 - PATIENT'S NONCOMPLIANCE WITH DIETARY REGIMEN; Z91.14 - PATIENT 'S OTHER NONCOMPLIANCE WITH MEDICATION REGIMEN Status: Chronic (12) Peripheral neuropathy Code(s): G62.9 - POLYNEUROPATHY, UNSPECIFIED Status: Chronic (13) Tobacco abuse Code(s): Z72.0 - TOBACCO USE Status: Chronic (14) Type II diabetes mellitus Status: Chronic (15) DKA, type 2 Code(s): E11.10 - TYPE 2 DIABETES MELLITUS WITH KETOACIDOSIS WITHOUT COMA Status: Resolved (16) 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 Review of Systems - Review of Systems Constitutional: negative: fever, chills, sweats, weakness, malaise, other Eyes: negative: Pain, Vision Change, Conjunctivae Inflammation, Eyelid Inflammation, Redness, Other ENT: negative: Ear Pain, Ear Discharge, Nose Pain, Nose Discharge, Nose Congestion, Mouth Pain, Mouth Swelling, Throat Pain, Throat Swelling, Other Respiratory: negative: Cough, Dry, Shortness of Breath, Hemoptysis, SOB with Excertion, Pleuritic Pain, Sputum, Wheezing Cardiovascular: edema. negative: chest pain, palpitations, orthopnea, paroxysmal nocturnal dyspnea, light headedness, other Gastrointestinal: negative: Nausea, Vomiting, Abdominal Pain, Diarrhea, Constipation, Melena, Hematochezia, Other Genitourinary: negative: Dysuria, Frequency, Incontinence, Hematuria, Retention , Other Musculoskeletal: negative: Neck Pain, Shoulder Pain, Arm Pain, Back Pain, Hand Pain, Leg Pain, Foot Pain, Other Skin: negative: Rash, Lesions, Jan, Bruising, Other - Medications/Allergies Allergies/Adverse Reactions: Allergies Allergy/AdvReac Type Severity Reaction Status Date / Time camphor Allergy Verified 12/03/17 22:05 ciprofloxacin [From Cipro] Allergy Verified 12/03/17 22:05 hydralazine Allergy Verified 07/17/17 14:46 insulin lispro Allergy Verified 03/07/18 17:34 [From Humalog Mix] insulin lispro protamine Allergy Verified 03/07/18 17:34 [From Humalog Mix] naproxen [From Naprosyn] Allergy Verified 07/17/17 14:46 Medications: Current Medications Acetaminophen (Tylenol) 650 mg PO Q4H PRN PRN Reason: Headache/Fever or Pain Last Admin: 03/09/18 07:52 Dose: 650 mg Hydrocodone Bitart/Acetaminophen ([place] 5/325) 1 tab PO Q4H PRN PRN Reason: Moderate Pain (4-6) Last Admin: 03/18/18 20:45 Dose: 1 tab Artificial Tears (Tears Naturale) 0 drop EA EYE PRN PRN PRN Reason: Dry Eyes Aspirin (Aspirin Chewable) 81 mg PO DAILY [facility] Last Admin: 03/19/18 05:55 Dose: 81 mg Atorvastatin Calcium (Lipitor) 40 mg PO DAILY [facility] Last Admin: 03/19/18 05:55 Dose: 40 mg Bisacodyl (Dulcolax) 10 mg PO DAILYPRN PRN PRN Reason: Constipation Calcium Carbonate (Tums) 1,000 mg PO Q4H PRN PRN Reason: Heartburn or Indigestion Carvedilol (Coreg) 6.25 mg PO BID [facility] Last Admin: 03/19/18 05:55 Dose: 6.25 mg Dextrose/Water (Dextrose 50%) 25 gm SLOW IVP PRN PRN PRN Reason: Hypoglycemia Last Admin: 03/16/18 08:01 Dose: 25 gm Ferrous Sulfate (Feosol) 325 mg PO QAM-WM [facility] Last Admin: 03/18/18 09:13 Dose: 325 mg Fluconazole (Diflucan) 100 mg PO DAILY [facility] Last Admin: 03/19/18 05:55 Dose: 100 mg Gabapentin (Neurontin) 100 mg PO TID [facility] Last Admin: 03/19/18 05:56 Dose: 100 mg Glucagon (Glucagon) 1 mg IM PRN PRN PRN Reason: Hypoglycemia Guaifenesin (Robitussin Sf) 200 mg PO Q4H PRN PRN Reason: Cough Dextrose/Water (D5w) 1,000 mls @ 0 mls/hr IV .Q0M PRN PRN Reason: Hypoglycemia Dobutamine HCl 1,000 mg/ (Dextrose/Water) 250 mls @ 3.31 mls/hr IVPB INF [facility] Last Admin: 03/19/18 06:00 Dose: 250 mls Insulin Glargine 15 units/ (Miscellaneous Medication) 0.15 mls @ 0 mls/hr SC HS [facility] Insulin Glargine 15 units/ (Miscellaneous Medication) 0.15 mls @ 0 mls/hr SC QAM [facility] Insulin Human Regular (Humulin R) 0 units SC .MILD SLIDING PRN; Protocol PRN Reason: MILD SLIDING SCALE Last Admin: 03/18/18 21:40 Dose: 6 unit Isosorbide Mononitrate (Imdur Er) 60 mg PO DAILY [facility] Last Admin: 03/19/18 05:56 Dose: 60 mg Lactulose (Lactulose) 20 gm PO DAILYPRN PRN PRN Reason: Constipation Lidocaine (Lidoderm 5% Patch) 1 patch TD 6918 [facility] Last Admin: 03/18/18 20:45 Dose: Not Given Mineral Oil/White Petrolatum (Eucerin Cream) 0 gm TOP BIDPRN PRN PRN Reason: Dry Skin Miscellaneous Information (Communication Order-Pharmacy) 0 each FS ONE [facility] Stop: 03/19/18 18:46 Miscellaneous Medication (Lidocaine Patch Removal) 1 each TOP 1200 [facility] Last Admin: 03/18/18 12:22 Dose: Not Given Nicotine (Nicoderm Patch) 14 mg TOP Q24HR [facility] Last Admin: 03/18/18 15:34 Dose: 14 mg Nitroglycerin (Nitrostat) 0.4 mg SL Q5MIN PRN PRN Reason: Chest Pain Ondansetron HCl (Zofran Odt) 4 mg PO Q6H PRN PRN Reason: Nausea/Vomiting Ondansetron HCl (Zofran) 4 mg IVP Q6H PRN PRN Reason: Nausea/Vomiting Last Admin: 03/06/18 12:36 Dose: 4 mg Pantoprazole Sodium (Protonix) 40 mg PO DAILY [facility] Last Admin: 03/19/18 05:56 Dose: 40 mg Phenol (Chloraseptic [place] 180 Ml Bot) 0 ml PO PRN PRN PRN Reason: Sore Throat Saccharomyces Boulardii (Florastor) 250 mg PO DAILY [facility] Last Admin: 03/19/18 05:56 Dose: 250 mg Sodium Chloride (Flush - Normal Saline) 10 ml IVF Q12HR [facility] Last Admin: 03/18/18 20:44 Dose: Not Given Sodium Chloride (Flush - Normal Saline) 10 ml IVF PRN PRN PRN Reason: Saline Flush Last Admin: 03/18/18 06:27 Dose: 10 ml Sodium Chloride ([place] Nasal [place] 0.65%) 0 ml EA NARE QIDPRN PRN PRN Reason: Nasal Congestion Sodium Polystyrene Sulfonate (Kayexelate Oral Susp 15 Gm/60 Ml) 30 gm PO NOW [facility] Stop: 03/19/18 12:00 Temazepam (Restoril) 15 mg PO HSPRN PRN PRN Reason: Insomnia Ticagrelor (Brilinta) 90 mg PO BID [facility] Last Admin: 03/19/18 05:56 Dose: 90 mg
[2018-03-19] MEDS ORDERED: HYDROcodone/Acetaminophen 5/325 mg Tablet ONE (11:44)
[2018-03-19] MEDS: Lidocaine Patch Removal 1 EACH TOP SCH (14:22)
[2018-03-19] MEDS: Ferrous Sulfate 325 MG TAB PO SCH (15:37)
[2018-03-19] MEDS: Nicotine 14 MG PATCH TOP SCH (15:38)
[2018-03-19] MEDS: Insulin Regular 300 UNITS/3 ML VIAL SC PRN (17:57)
[2018-03-19] MEDS: HYDROcodone/Acetaminophen 5/325 mg Tablet PO PRN (20:09)
[2018-03-19] MEDS: Lidocaine 5% Patch TD SCH (21:12)
[2018-03-20] MEDS ORDERED: Docusate 100 MG CAP PO PRN (05:59)
[2018-03-20] MEDS ORDERED: Loperamide HCl 2 MG CAP PO PRN (05:59)
[2018-03-20 06:08] LABS: #Basophils 0.1 thou/uL (0.0-0.2); #Eosinphils 0.2 thou/uL (0.0-0.7); #Lymphocytes 1.3 thou/uL (1.20-3.40); #Monocytes 0.7 thou/uL (0.11-0.59); #Neutrophils 6.6 thou/uL (1.40-6.50); %Basophils 0.9 % (0.0-1.0); %Eosinophils 2.3 % (0.0-10.0); %Lymphocytes 14.7 % (21.0-51.0); %Monocytes 7.4 % (0.0-10.0); %Neutrophils 74.6 % (42.0-75.0); Hemoglobin 8.6 g/dL (12.0-16.0); Mean Corpuscular HGB CONC 31.1 g/dL (32.0-36.0); Mean Corpuscular Hemoglobin 28.6 pg (27.0-31.0); Mean Platelet Volume 7.7 fL (7.4-10.4); Platelet Count 569 thou/uL (130-400); RBC Distribution Width 13.7 % (11.5-14.5); White Blood Cell (WBC) Count 8.9 thou/uL (4.8-10.8)
[2018-03-20 06:25] LABS: Iron 32 ug/dL (50-170); Iron Binding Capacity, Total 308 mcg/dL (265-497)
[2018-03-20 06:26] LABS: ALT (SGPT) 37 U/L (8-55); AST (SGOT) 12 U/L (5-34); AST (SGOT) 13 U/L (5-34); Albumin 2.7 g/dL (3.5-5.0); Alkaline Phosphatase 462 U/L (40-150); Alkaline Phosphatase 463 U/L (40-150); Anion Gap 16 mmol/L (10-20); BUN (Urea Nitrogen) 56 mg/dL (9.8-20.1); Bilirubin, Direct 0.1 mg/dL (0.1-0.3); Bilirubin, Total 0.2 mg/dL (0.2-1.2); Calc. Creatinine Clearance 36 mL/min (70-130); Calcium 9.1 mg/dL (7.8-10.44); Carbon Dioxide 25 mmol/L (22-29); Chloride 101 mmol/L (98-107); Estimated GFR-MDRD 20; Globulin 3.3 g/dL (2.4-3.5); Glucose 259 mg/dL (70-105); Potassium 4.6 mmol/L (3.5-5.1); Sodium 137 mmol/L (136-145)
[2018-03-20] MEDS: Ferrous Sulfate 325 MG TAB PO SCH ×2 (09:26→17:50)
[2018-03-20] MEDS: Carvedilol 3.125 MG TAB PO SCH ×2 (09:26→21:07)
[2018-03-20] MEDS: Atorvastatin Calcium 40 MG TAB PO SCH (09:27)
[2018-03-20] MEDS: Saccharomyces boulardii 250 MG CAP PO SCH (09:28)
[2018-03-20] MEDS: Fluconazole 100 MG TAB PO SCH (09:29)
[2018-03-20] MEDS: HYDROcodone/Acetaminophen 5/325 mg Tablet PO PRN ×3 (09:29→22:01)
[2018-03-20] MEDS: Gabapentin 100 MG CAP PO SCH ×3 (09:29→21:07)
[2018-03-20] MEDS: TICAGRELOR 90 MG TABLET PO SCH ×2 (09:29→21:07)
[2018-03-20] MEDS: Insulin Glargine 20 UNITS in Pre-Filled Syringe 1 EACH SC SCH ×2 (09:32→21:06)
--- NOTE | 2018-03-20 10:02 | PDOC.CTH ---
<Pattie Chapman - Last Filed: 03/20/18 11:40> Cardiology Progress Note - Subjective The pt seen and examined. No overnight events. No cardiac complaints. - Objective Vital Signs Temp Pulse Resp BP BP Pulse Ox 03/20/18 08:00 97.5 F L 89 20 158/82 H 95 03/20/18 04:00 97.7 F 87 12 155/90 H 92 L 03/20/18 00:00 84 147/84 H Admit Weight 169 lb 1.6 oz Weight 194 lb 12.8 oz 03/19/18 03/20/18 03/21/18 06:59 06:59 06:59 Intake Total 1029.6 534.6 Output Total 2050 750 Balance -1020.4 -215.4 - Physical Examination General/Neuro: alert & oriented x3 Neck: no JVD present Lungs: other: (diinished at bases) Heart: RRR Abdomen: soft Extremities: other: (4+ pitting edema) - Telemetry Telemetry Rhythm: SR - Labs Result Diagrams: 03/20/18 05:49 03/20/18 05:49 Troponin/CKMB CK-MB (CK-2) 28.7 ng/mL (0-6.6) H* 03/05/18 18:07 Troponin I 162.370 ng/mL (< 0.028) H* 03/06/18 07:44 - Assessment/Plan 1. S/P Anterior [place] - S/p LHC with stent to LAD on 03/12/18. S/p stent to RCA on 03/19/18. On Coreg, ASA, Statin, and Brilinta. 2. Acute renal insufficiency on CKD stage 4 - Stable creat. today. Vol. overloaded. Cont. dobutamine. 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 No significant urine output. Nephrology following. 3. DKA - per primary service. It was stable AM. Pt. poorly controlled. Noncompliant likely at home. 4. Severe CMY, ischemic - Cont. Dobutamin IV and Lasix 40mg qd. She will need likely a Life-Vest on d/c. She will need to be compliant with F/U. 5. HTN - stable 6. UTI - Managed by PCP 7. Anemia - Received 2 units of PRBCs on 03/09/18. 8. Current smoker - smoking cessation education given to the pt. 9. Hyperlipidemia - on Statin. 10. Non-compliance with diet and medication regimen - education given to the pt. MAR reviewed * Will need a Life-vest on d/c likey. 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 * Echo was done today and the result is pending at this time. Review of Systems - Review of Systems Constitutional: reports: no symptoms reported EENTM: reports: no symptoms reported Respiratory: reports: no symptoms reported Cardiac (ROS): reports: no symptoms reported ABD/GI: reports: no symptoms reported : reports: no symptoms reported <Souleymane Robledo - Last Filed: 03/20/18 19:36> Cardiology Progress Note - Objective Vital Signs Temp Pulse Resp BP BP Pulse Ox 03/20/18 14:15 98 F 84 20 144/83 H 03/20/18 08:00 97.5 F L 89 20 158/82 H 95 Admit Weight 169 lb 1.6 oz Weight 194 lb 12.8 oz 03/19/18 03/20/18 03/21/18 06:59 06:59 06:59 Intake Total 1029.6 534.6 759.6 Output Total 2050 750 1350 Balance -1020.4 -215.4 -590.4 - Labs Result Diagrams: 03/20/18 05:49 03/20/18 05:49 Troponin/CKMB CK-MB (CK-2) 28.7 ng/mL (0-6.6) H* 03/05/18 18:07 Troponin I 162.370 ng/mL (< 0.028) H* 03/06/18 07:44 - Assessment/Plan Pt. seen and eval. today. She remains significantly vol. overloaded. I agree with the A/P by the HOSPITAL UNIT CLERK. Her Coreg has been held while she is on the dobutamine. This will need to be d/c'd and the betablockers restarted. She will need a life vest on d/c. The repeat echo today indicated an EF of 20-25%. Chest : decreased BR on left. RRR. 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
[2018-03-20] MEDS ORDERED: Epoetin (ESRD) 10,000 UNITS/ML VIAL SC SCH (10:15)
--- NOTE | 2018-03-20 11:05 | PDOC.PN ---
- Subjective Encounter Start Date: 03/20/18 Encounter Start Time: 07:30 Patient seen and examined. No new complaints. No overnight events - Objective Resuscitation Status: Resuscitation Status FULL:Full Resuscitation MAR Reviewed: Yes Vital Signs & Weight: Vital Signs (12 hours) Temp Pulse Resp BP BP Pulse Ox 03/20/18 08:00 97.5 F L 89 20 158/82 H 95 03/20/18 04:00 97.7 F 87 12 155/90 H 92 L 03/20/18 00:00 84 147/84 H Weight Admit Weight 169 lb 1.6 oz Weight 194 lb 12.8 oz Most Recent Monitor Data Heart Rate from ECG 94 NIBP 130/85 NIBP BP-Mean 107 Respiration from ECG 18 SpO2 99 I&O: 03/19/18 03/20/18 03/21/18 06:59 06:59 06:59 Intake Total 1029.6 534.6 Output Total 2050 750 Balance -1020.4 -215.4 Result Diagrams: 03/20/18 05:49 03/20/18 05:49 Additional Labs: Accuchecks 03/20/18 03/20/18 03/19/18 10:32 05:54 17:26 POC Glucose 247 H 289 H 445 H 03/19/18 05:44 POC Glucose 385 H EKG Reviewed by me: Yes Phys Exam - Physical Examination Constitutional: NAD HEENT: PERRLA, moist MMs, sclera anicteric Neck: no JVD, supple Respiratory: no wheezing, no rales, no rhonchi Cardiovascular: RRR, no significant murmur, no rub Gastrointestinal: soft, non-tender, no distention, positive bowel sounds Musculoskeletal: pulses present, edema present renan bandage+ Neurological: non-focal, normal sensation, moves all 4 limbs Lymphatic: no nodes Psychiatric: normal affect, A&O x 3 Skin: no rash, normal turgor Dx/Plan (1) NSTEMI (non-ST elevated myocardial infarction) Code(s): I21.4 - NON-ST ELEVATION (NSTEMI) MYOCARDIAL INFARCTION Status: Acute Comment: s/p cardiac cath and stent placement (2) S/P coronary artery stent placement Status: Acute (3) Acute systolic ACC/AHA stage C congestive heart failure Code(s): I50.21 - ACUTE SYSTOLIC (CONGESTIVE) HEART FAILURE Status: Acute (4) Acute renal failure superimposed on stage 3 chronic kidney disease Code(s): N17.9 - ACUTE KIDNEY FAILURE, UNSPECIFIED; N18.3 - CHRONIC KIDNEY DISEASE, STAGE 3 (MODERATE) Status: Acute (5) Hypoglycemia associated with type 2 diabetes mellitus Code(s): E11.649 - TYPE 2 DIABETES MELLITUS WITH HYPOGLYCEMIA WITHOUT COMA Status: Resolved (6) UTI (urinary tract infection) Status: Acute (7) Anemia, normocytic normochromic Code(s): D64.9 - ANEMIA, UNSPECIFIED Status: Chronic (8) HTN (hypertension) Code(s): I10 - ESSENTIAL (PRIMARY) HYPERTENSION Status: Chronic (9) Hyperlipidemia Code(s): E78.5 - HYPERLIPIDEMIA, UNSPECIFIED Status: Chronic (10) Noncompliance with diet and medication regimen Code(s): Z91.11 - PATIENT'S NONCOMPLIANCE WITH DIETARY REGIMEN; Z91.14 - PATIENT 'S OTHER NONCOMPLIANCE WITH MEDICATION REGIMEN Status: Chronic (11) Peripheral neuropathy Code(s): G62.9 - POLYNEUROPATHY, UNSPECIFIED Status: Chronic (12) Tobacco abuse Code(s): Z72.0 - TOBACCO USE Status: Chronic (13) Type II diabetes mellitus Status: Chronic (14) DKA, type 2 Code(s): E11.10 - TYPE 2 DIABETES MELLITUS WITH KETOACIDOSIS WITHOUT COMA Status: Resolved (15) Anasarca associated with disorder of kidney Code(s): N04.9 - NEPHROTIC SYNDROME WITH UNSPECIFIED MORPHOLOGIC CHANGES Status: Acute (16) 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 Review of Systems - Review of Systems Eyes: negative: Pain, Vision Change, Conjunctivae Inflammation, Eyelid Inflammation, Redness, Other ENT: negative: Ear Pain, Ear Discharge, Nose Pain, Nose Discharge, Nose Congestion, Mouth Pain, Mouth Swelling, Throat Pain, Throat Swelling, Other Respiratory: negative: Cough, Dry, Shortness of Breath, Hemoptysis, SOB with Excertion, Pleuritic Pain, Sputum, Wheezing Cardiovascular: edema. negative: chest pain, palpitations, orthopnea, paroxysmal nocturnal dyspnea, light headedness, other Gastrointestinal: negative: Nausea, Vomiting, Abdominal Pain, Diarrhea, Constipation, Melena, Hematochezia, Other Genitourinary: negative: Dysuria, Frequency, Incontinence, Hematuria, Retention , Other Musculoskeletal: negative: Neck Pain, Shoulder Pain, Arm Pain, Back Pain, Hand Pain, Leg Pain, Foot Pain, Other Skin: negative: Rash, Lesions, Jan, Bruising, Other - Medications/Allergies Allergies/Adverse Reactions: Allergies Allergy/AdvReac Type Severity Reaction Status Date / Time camphor Allergy Verified 12/03/17 22:05 ciprofloxacin [From Cipro] Allergy Verified 12/03/17 22:05 hydralazine Allergy Verified 07/17/17 14:46 insulin lispro Allergy Verified 03/07/18 17:34 [From Humalog Mix] insulin lispro protamine Allergy Verified 03/07/18 17:34 [From Humalog Mix] naproxen [From Naprosyn] Allergy Verified 07/17/17 14:46 Medications: Current Medications Acetaminophen (Tylenol) 650 mg PO Q4H PRN PRN Reason: Headache/Fever or Pain Last Admin: 03/09/18 07:52 Dose: 650 mg Hydrocodone Bitart/Acetaminophen ([place] 5/325) 1 tab PO Q4H PRN PRN Reason: Moderate Pain (4-6) Last Admin: 03/20/18 09:29 Dose: 1 tab Artificial Tears (Tears Naturale) 0 drop EA EYE PRN PRN PRN Reason: Dry Eyes Aspirin (Aspirin Chewable) 81 mg PO DAILY [facility] Last Admin: 03/20/18 09:28 Dose: 81 mg Atorvastatin Calcium (Lipitor) 40 mg PO DAILY [facility] Last Admin: 03/20/18 09:27 Dose: 40 mg Bisacodyl (Dulcolax) 10 mg PO DAILYPRN PRN PRN Reason: Constipation Calcium Carbonate (Tums) 1,000 mg PO Q4H PRN PRN Reason: Heartburn or Indigestion Carvedilol (Coreg) 6.25 mg PO BID [facility] Last Admin: 03/20/18 09:26 Dose: 6.25 mg Dextrose/Water (Dextrose 50%) 25 gm SLOW IVP PRN PRN PRN Reason: Hypoglycemia Last Admin: 03/16/18 08:01 Dose: 25 gm Docusate Sodium (Colace) 100 mg PO BIDPRN PRN PRN Reason: Constipation Epoetin Sarkis (Procrit) 10,000 units SC Q7D [facility] Ferrous Sulfate (Feosol) 325 mg PO BID-WM [facility] Fluconazole (Diflucan) 100 mg PO DAILY [facility] Last Admin: 03/20/18 09:29 Dose: 100 mg Furosemide (Lasix) 40 mg SLOW IVP 0600,1400 [facility] Gabapentin (Neurontin) 100 mg PO TID [facility] Last Admin: 03/20/18 09:29 Dose: 100 mg Glucagon (Glucagon) 1 mg IM PRN PRN PRN Reason: Hypoglycemia Guaifenesin (Robitussin Sf) 200 mg PO Q4H PRN PRN Reason: Cough Dextrose/Water (D5w) 1,000 mls @ 0 mls/hr IV .Q0M PRN PRN Reason: Hypoglycemia Dobutamine HCl 1,000 mg/ (Dextrose/Water) 250 mls @ 3.31 mls/hr IVPB INF [facility] Last Admin: 03/19/18 06:00 Dose: 250 mls Insulin Glargine 20 units/ (Miscellaneous Medication) 0.2 mls @ 0 mls/hr SC HS [facility] Insulin Glargine 20 units/ (Miscellaneous Medication) 0.2 mls @ 0 mls/hr SC QAM [facility] Last Admin: 03/20/18 09:32 Dose: 0.2 mls Insulin Human Regular (Humulin R) 0 units SC .MODERATE SLIDING SC PRN PRN Reason: Moderate Correctional Scale Isosorbide Mononitrate (Imdur Er) 60 mg PO DAILY [facility] Last Admin: 03/20/18 09:28 Dose: 60 mg Lactulose (Lactulose) 20 gm PO DAILYPRN PRN PRN Reason: Constipation Lidocaine (Lidoderm 5% Patch) 1 patch TD 2359 [facility] Last Admin: 03/19/18 21:12 Dose: Not Given Loperamide HCl (Imodium) 2 mg PO PRN PRN PRN Reason: Diarrhea/Loose Stools Mineral Oil/White Petrolatum (Eucerin Cream) 0 gm TOP BIDPRN PRN PRN Reason: Dry Skin Miscellaneous Medication (Lidocaine Patch Removal) 1 each TOP 1200 [facility] Last Admin: 03/19/18 14:22 Dose: Not Given Nicotine (Nicoderm Patch) 14 mg TOP Q24HR [facility] Last Admin: 03/19/18 15:38 Dose: 14 mg Nitroglycerin (Nitrostat) 0.4 mg SL Q5MIN PRN PRN Reason: Chest Pain Ondansetron HCl (Zofran Odt) 4 mg PO Q6H PRN PRN Reason: Nausea/Vomiting Ondansetron HCl (Zofran) 4 mg IVP Q6H PRN PRN Reason: Nausea/Vomiting Last Admin: 03/06/18 12:36 Dose: 4 mg Pantoprazole Sodium (Protonix) 40 mg PO DAILY [facility] Last Admin: 03/20/18 09:26 Dose: 40 mg Phenol (Chloraseptic [place] 180 Ml Bot) 0 ml PO PRN PRN PRN Reason: Sore Throat Saccharomyces Boulardii (Florastor) 250 mg PO DAILY [facility] Last Admin: 03/20/18 09:28 Dose: 250 mg Sodium Chloride (Flush - Normal Saline) 10 ml IVF Q12HR [facility] Last Admin: 03/19/18 20:09 Dose: Not Given Sodium Chloride (Flush - Normal Saline) 10 ml IVF PRN PRN PRN Reason: Saline Flush Last Admin: 03/18/18 06:27 Dose: 10 ml Sodium Chloride ([place] Nasal [place] 0.65%) 0 ml EA NARE QIDPRN PRN PRN Reason: Nasal Congestion Temazepam (Restoril) 15 mg PO HSPRN PRN PRN Reason: Insomnia Ticagrelor (Brilinta) 90 mg PO BID [facility] Last Admin: 03/20/18 09:29 Dose: 90 mg
--- NOTE | 2018-03-20 11:07 | PRG ---
Patient Name: TESSA GARRETT Date of service: 03/20/2018 Subjective: Patient was seen and examined at bedside and overnight events noted. Patient denies any shortness of breath or chest pain or palpitation. No history of nausea or vomiting or diarrhea or fever or chills or cramps. Objective: General: This is a well-built female in no apparent distress. Vital signs: Temperature 98.7, pulse 80, respiratory rate 18, blood pressure 155/90. HEENT: Atraumatic, normocephalic. Oral mucosa is moist. Neck: Supple. Cardiovascular: S1 S2 heard. Rate and rhythm regular. Respiratory: Clear to auscultation. Gastrointestinal: Abdomen is soft. Musculoskeletal: No tenderness. 2+ edema. Dermatologic: No skin rash. Neurologic: Alert and awake and oriented X3. No focal neurologic deficits. Moving all the extremit ies. Psychiatric: Mood and affect normal. LABORATORY DATA: Potassium 4.6, BUN 56, creatinine is 2.5. ASSESSMENT AND PLAN: 1. Acute kidney injury on chronic kidney stage 4 with stable creatinine. Creatinine is stable after heart catheterization. 2. Edema with nephropathy. Plan is to start back on Lasix this afternoon at 40 mg IV b.i.d. 3. Hyperkalemia, better with Kayexalate. 4. Diabetic nephropathy with proteinuria. 5. Anemia, chronic. 6. Iron deficiency. Start on iron pills and I would also give a dose of Epogen. 7. Hypertension, stable. Plan is to start back on Lasix, give a dose of Epogen and start her on iron. I will follow.
[2018-03-20] MEDS: Lidocaine Patch Removal 1 EACH TOP SCH (14:12)
[2018-03-20] MEDS: Furosemide 40 MG/4 ML VIAL SLOW IVP SCH (14:13)
[2018-03-20] MEDS: Nicotine 14 MG PATCH TOP SCH (14:13)
[2018-03-21] MEDS: Lidocaine 5% Patch TD SCH (00:57)
[2018-03-21] MEDS: Furosemide 40 MG/4 ML VIAL SLOW IVP SCH ×2 (06:03→14:25)
[2018-03-21 06:11] LABS: Anion Gap 12 mmol/L (10-20); BUN (Urea Nitrogen) 48 mg/dL (9.8-20.1); Calc. Creatinine Clearance 42 mL/min (70-130); Calcium 8.3 mg/dL (7.8-10.44); Carbon Dioxide 26 mmol/L (22-29); Chloride 104 mmol/L (98-107); Estimated GFR-MDRD 23; Glucose 153 mg/dL (70-105); Potassium 4.1 mmol/L (3.5-5.1); Sodium 138 mmol/L (136-145)
[2018-03-21] MEDS ORDERED: Mag-Al 1200 mg/1200 mg/30 ML UDCUP PO PRN (06:44)
[2018-03-21] MEDS: Ferrous Sulfate 325 MG TAB PO SCH ×2 (08:56→17:22)
[2018-03-21] MEDS: Fluconazole 100 MG TAB PO SCH (08:58)
[2018-03-21] MEDS: Carvedilol 3.125 MG TAB PO SCH ×2 (08:59→20:41)
[2018-03-21] MEDS: Saccharomyces boulardii 250 MG CAP PO SCH (08:59)
[2018-03-21] MEDS: Atorvastatin Calcium 40 MG TAB PO SCH (08:59)
[2018-03-21] MEDS: Insulin Glargine 20 UNITS in Pre-Filled Syringe 1 EACH SC SCH ×2 (09:00→20:41)
[2018-03-21] MEDS: TICAGRELOR 90 MG TABLET PO SCH ×2 (09:00→20:41)
[2018-03-21] MEDS: Gabapentin 100 MG CAP PO SCH ×3 (09:00→20:40)
--- NOTE | 2018-03-21 09:10 | PDOC.CTH ---
<Merlene Brito - Last Filed: 03/21/18 09:07> Cardiology Progress Note - Subjective Doing well overall. no CP/SOB. Walking a little in grier, but legs unstable at times. Aware of fall risk. - Objective Vital Signs Temp Pulse Resp BP BP BP Pulse Ox 03/21/18 08:30 97.5 F L 85 20 132/74 03/21/18 06:00 82 16 171/93 H 03/21/18 04:33 97.7 F 82 20 169/92 H 93 L 03/20/18 23:46 88 20 146/83 H Admit Weight 169 lb 1.6 oz Weight 193 lb 12.8 oz 03/20/18 03/21/18 03/22/18 06:59 06:59 06:59 Intake Total 534.6 1269.6 Output Total 750 2550 Balance -215.4 -1280.4 - Physical Examination General/Neuro: alert & oriented x3 Neck: no JVD present Lungs: other: (decreased BS at bases) Heart: RRR Abdomen: NT/ND Extremities: + edema B - Telemetry Telemetry Rhythm: SR - Labs Result Diagrams: 03/20/18 05:49 03/21/18 05:27 Troponin/CKMB CK-MB (CK-2) 28.7 ng/mL (0-6.6) H* 03/05/18 18:07 Troponin I 162.370 ng/mL (< 0.028) H* 03/06/18 07:44 - Assessment/Plan 1. S/P Anterior DE - s/p PCI- LAD on 03/12/18. S/p PCI-RCA on 03/19/18. On Coreg, ASA, Statin, and Brilinta. 2. JEAN on CKD4 3. ICMO - EF 25-30% 4. HTN 5. Chronic Anemia 6. Current smoker - smoking cessation education given to the pt. 7. History of non-compliance Overall stable. Continue lasix IV and dobutamine. Counseled to stop smoking and encouraged dietary and fluid compliance. LifeVest being arranged for Friday. <Blue Kitchen - Last Filed: 03/21/18 14:14> Cardiology Progress Note - Objective Vital Signs Temp Pulse Pulse Pulse Resp BP BP 03/21/18 09:27 86 86 124/65 144/75 H 03/21/18 08:30 97.5 F L 85 20 03/21/18 06:00 82 16 03/21/18 04:33 97.7 F 82 20 BP BP Pulse Ox Pulse Ox Pulse Ox 03/21/18 09:27 95 95 03/21/18 08:30 132/74 03/21/18 06:00 171/93 H 03/21/18 04:33 169/92 H 93 L Admit Weight 169 lb 1.6 oz Weight 193 lb 12.8 oz 03/20/18 03/21/18 03/22/18 06:59 06:59 06:59 Intake Total 534.6 1269.6 Output Total 750 2550 Balance -215.4 -1280.4 - Labs Result Diagrams: 03/20/18 05:49 03/21/18 05:27 Troponin/CKMB CK-MB (CK-2) 28.7 ng/mL (0-6.6) H* 03/05/18 18:07 Troponin I 162.370 ng/mL (< 0.028) H* 03/06/18 07:44 - Assessment/Plan Pt seen and examined. Agree with above. Decrease coreg and continue dobutrex. Stop coreg tomorrow and continue dobutrex if needed. Plan to stop dobutrex Friday and slowly restart coreg
--- NOTE | 2018-03-21 09:50 | PDOC.PN ---
- Subjective Encounter Start Date: 03/21/18 Encounter Start Time: 07:20 Patient seen and examined. No new complaints. No overnight events - Objective Resuscitation Status: Resuscitation Status FULL:Full Resuscitation MAR Reviewed: Yes Vital Signs & Weight: Vital Signs (12 hours) Temp Pulse Resp BP BP BP Pulse Ox 03/21/18 08:30 97.5 F L 85 20 132/74 03/21/18 06:00 82 16 171/93 H 03/21/18 04:33 97.7 F 82 20 169/92 H 93 L 03/20/18 23:46 88 20 146/83 H Weight Admit Weight 169 lb 1.6 oz Weight 193 lb 12.8 oz Most Recent Monitor Data Heart Rate from ECG 94 NIBP 130/85 NIBP BP-Mean 107 Respiration from ECG 18 SpO2 99 I&O: 03/20/18 03/21/18 03/22/18 06:59 06:59 06:59 Intake Total 534.6 1269.6 Output Total 750 2550 Balance -215.4 -1280.4 Result Diagrams: 03/20/18 05:49 03/21/18 05:27 Additional Labs: Accuchecks 03/21/18 03/20/18 03/20/18 05:12 20:13 16:45 POC Glucose 165 H 240 H 213 H 03/20/18 10:32 POC Glucose 247 H Radiology Reviewed by me: Yes (echo report noted) EKG Reviewed by me: Yes (nsr) Phys Exam - Physical Examination Constitutional: NAD HEENT: PERRLA, moist MMs, sclera anicteric Neck: no JVD, supple Respiratory: no wheezing, no rales, no rhonchi Cardiovascular: RRR, no significant murmur, no rub Gastrointestinal: soft, non-tender, no distention, positive bowel sounds Musculoskeletal: pulses present, edema present Neurological: non-focal, normal sensation Lymphatic: no nodes Psychiatric: normal affect, A&O x 3 Skin: no rash, normal turgor Dx/Plan (1) NSTEMI (non-ST elevated myocardial infarction) Code(s): I21.4 - NON-ST ELEVATION (NSTEMI) MYOCARDIAL INFARCTION Status: Acute Comment: s/p cardiac cath and stent placement (2) S/P coronary artery stent placement Status: Acute (3) Acute systolic ACC/AHA stage C congestive heart failure Code(s): I50.21 - ACUTE SYSTOLIC (CONGESTIVE) HEART FAILURE Status: Acute (4) Acute renal failure superimposed on stage 3 chronic kidney disease Code(s): N17.9 - ACUTE KIDNEY FAILURE, UNSPECIFIED; N18.3 - CHRONIC KIDNEY DISEASE, STAGE 3 (MODERATE) Status: Acute (5) Hypoglycemia associated with type 2 diabetes mellitus Code(s): E11.649 - TYPE 2 DIABETES MELLITUS WITH HYPOGLYCEMIA WITHOUT COMA Status: Resolved (6) UTI (urinary tract infection) Status: Acute (7) Anemia, normocytic normochromic Code(s): D64.9 - ANEMIA, UNSPECIFIED Status: Chronic (8) HTN (hypertension) Code(s): I10 - ESSENTIAL (PRIMARY) HYPERTENSION Status: Chronic (9) Hyperlipidemia Code(s): E78.5 - HYPERLIPIDEMIA, UNSPECIFIED Status: Chronic (10) Noncompliance with diet and medication regimen Code(s): Z91.11 - PATIENT'S NONCOMPLIANCE WITH DIETARY REGIMEN; Z91.14 - PATIENT 'S OTHER NONCOMPLIANCE WITH MEDICATION REGIMEN Status: Chronic (11) Peripheral neuropathy Code(s): G62.9 - POLYNEUROPATHY, UNSPECIFIED Status: Chronic (12) Tobacco abuse Code(s): Z72.0 - TOBACCO USE Status: Chronic (13) Type II diabetes mellitus Status: Chronic (14) DKA, type 2 Code(s): E11.10 - TYPE 2 DIABETES MELLITUS WITH KETOACIDOSIS WITHOUT COMA Status: Resolved (15) Anasarca associated with disorder of kidney Code(s): N04.9 - NEPHROTIC SYNDROME WITH UNSPECIFIED MORPHOLOGIC CHANGES Status: Acute (16) 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 Review of Systems - Review of Systems Constitutional: negative: fever, chills, sweats, weakness, malaise, other Eyes: negative: Pain, Vision Change, Conjunctivae Inflammation, Eyelid Inflammation, Redness, Other ENT: negative: Ear Pain, Ear Discharge, Nose Pain, Nose Discharge, Nose Congestion, Mouth Pain, Mouth Swelling, Throat Pain, Throat Swelling, Other Respiratory: negative: Cough, Dry, Shortness of Breath, Hemoptysis, SOB with Excertion, Pleuritic Pain, Sputum, Wheezing Cardiovascular: edema. negative: chest pain, palpitations, orthopnea, paroxysmal nocturnal dyspnea, light headedness, other Gastrointestinal: negative: Nausea, Vomiting, Abdominal Pain, Diarrhea, Constipation, Melena, Hematochezia, Other Genitourinary: negative: Dysuria, Frequency, Incontinence, Hematuria, Retention , Other Musculoskeletal: negative: Neck Pain, Shoulder Pain, Arm Pain, Back Pain, Hand Pain, Leg Pain, Foot Pain, Other Skin: negative: Rash, Lesions, Jan, Bruising, Other - Medications/Allergies Allergies/Adverse Reactions: Allergies Allergy/AdvReac Type Severity Reaction Status Date / Time camphor Allergy Verified 12/03/17 22:05 ciprofloxacin [From Cipro] Allergy Verified 12/03/17 22:05 hydralazine Allergy Verified 07/17/17 14:46 insulin lispro Allergy Verified 03/07/18 17:34 [From Humalog Mix] insulin lispro protamine Allergy Verified 03/07/18 17:34 [From Humalog Mix] naproxen [From Naprosyn] Allergy Verified 07/17/17 14:46 Medications: Current Medications Acetaminophen (Tylenol) 650 mg PO Q4H PRN PRN Reason: Headache/Fever or Pain Last Admin: 03/09/18 07:52 Dose: 650 mg Al Hydroxide/Mg Hydroxide (Maalox) 15 ml PO Q4H PRN PRN Reason: Heartburn or Indigestion Artificial Tears (Tears Naturale) 0 drop EA EYE PRN PRN PRN Reason: Dry Eyes Aspirin (Aspirin Chewable) 81 mg PO DAILY [facility] Last Admin: 03/21/18 08:57 Dose: 81 mg Atorvastatin Calcium (Lipitor) 40 mg PO DAILY [facility] Last Admin: 03/21/18 08:59 Dose: 40 mg Bisacodyl (Dulcolax) 10 mg PO DAILYPRN PRN PRN Reason: Constipation Calcium Carbonate (Tums) 1,000 mg PO Q4H PRN PRN Reason: Heartburn or Indigestion Carvedilol (Coreg) 3.125 mg PO BID [facility] Last Admin: 03/21/18 08:59 Dose: 3.125 mg Dextrose/Water (Dextrose 50%) 25 gm SLOW IVP PRN PRN PRN Reason: Hypoglycemia Last Admin: 03/16/18 08:01 Dose: 25 gm Docusate Sodium (Colace) 100 mg PO BIDPRN PRN PRN Reason: Constipation Epoetin Sarkis (Procrit) 10,000 units SC Q7D [facility] Last Admin: 03/20/18 14:12 Dose: 10,000 units Ferrous Sulfate (Feosol) 325 mg PO BID-[facility] Last Admin: 03/21/18 08:56 Dose: 325 mg Furosemide (Lasix) 40 mg SLOW IVP 0600,1400 [facility] Last Admin: 03/21/18 06:03 Dose: 40 mg Gabapentin (Neurontin) 100 mg PO TID [facility] Last Admin: 03/21/18 09:00 Dose: 100 mg Glucagon (Glucagon) 1 mg IM PRN PRN PRN Reason: Hypoglycemia Guaifenesin (Robitussin Sf) 200 mg PO Q4H PRN PRN Reason: Cough Dextrose/Water (D5w) 1,000 mls @ 0 mls/hr IV .Q0M PRN PRN Reason: Hypoglycemia Dobutamine HCl 1,000 mg/ (Dextrose/Water) 250 mls @ 3.31 mls/hr IVPB INF [facility] Last Admin: 03/21/18 04:38 Dose: 250 mls Insulin Glargine 20 units/ (Miscellaneous Medication) 0.2 mls @ 0 mls/hr SC HS [facility] Last Admin: 03/20/18 21:06 Dose: 0.2 mls Insulin Glargine 20 units/ (Miscellaneous Medication) 0.2 mls @ 0 mls/hr SC QAM [facility] Last Admin: 03/21/18 09:00 Dose: 0.2 mls Insulin Human Regular (Humulin R) 0 units SC .MODERATE SLIDING SC PRN PRN Reason: Moderate Correctional Scale Isosorbide Mononitrate (Imdur Er) 60 mg PO DAILY [facility] Last Admin: 03/21/18 08:57 Dose: 60 mg Lactulose (Lactulose) 20 gm PO DAILYPRN PRN PRN Reason: Constipation Lidocaine (Lidoderm 5% Patch) 1 patch TD 3883 [facility] Last Admin: 03/21/18 00:57 Dose: Not Given Loperamide HCl (Imodium) 2 mg PO PRN PRN PRN Reason: Diarrhea/Loose Stools Mineral Oil/White Petrolatum (Eucerin Cream) 0 gm TOP BIDPRN PRN PRN Reason: Dry Skin Miscellaneous Medication (Lidocaine Patch Removal) 1 each TOP 1200 [facility] Last Admin: 03/20/18 14:12 Dose: Not Given Nicotine (Nicoderm Patch) 14 mg TOP Q24HR [facility] Last Admin: 03/20/18 14:13 Dose: 14 mg Nitroglycerin (Nitrostat) 0.4 mg SL Q5MIN PRN PRN Reason: Chest Pain Ondansetron HCl (Zofran Odt) 4 mg PO Q6H PRN PRN Reason: Nausea/Vomiting Ondansetron HCl (Zofran) 4 mg IVP Q6H PRN PRN Reason: Nausea/Vomiting Last Admin: 03/06/18 12:36 Dose: 4 mg Pantoprazole Sodium (Protonix) 40 mg PO DAILY [facility] Last Admin: 03/21/18 09:00 Dose: 40 mg Phenol (Chloraseptic [place] 180 Ml Bot) 0 ml PO PRN PRN PRN Reason: Sore Throat Saccharomyces Boulardii (Florastor) 250 mg PO DAILY [facility] Last Admin: 03/21/18 08:59 Dose: 250 mg Sodium Chloride (Flush - Normal Saline) 10 ml IVF Q12HR [facility] Last Admin: 03/20/18 21:08 Dose: 10 ml Sodium Chloride (Flush - Normal Saline) 10 ml IVF PRN PRN PRN Reason: Saline Flush Last Admin: 03/21/18 06:03 Dose: 10 ml Sodium Chloride ([place] Nasal [place] 0.65%) 0 ml EA NARE QIDPRN PRN PRN Reason: Nasal Congestion Ticagrelor (Brilinta) 90 mg PO BID [facility] Last Admin: 03/21/18 09:00 Dose: 90 mg
--- NOTE | 2018-03-21 11:17 | PRG ---
DATE OF SERVICE: 03/21/2018 SUBJECTIVE: Patient was seen and examined at bedside and overnight events noted. Patient denies any shortness of breath or chest pain or palpitation. No history of nausea or vomiting or diarrhea or f ever or chills or cramps. OBJECTIVE: GENERAL: This is a well-built white female, in no apparent distress. VITAL SIGNS: Temperature 97.7, pulse 82, respiratory rate , blood pressure 132/74. HEENT: Atraumatic, normocephalic. Oral mucosa is moist. NECK: Supple. CARDIOVASCULAR: S1, S2 heard. Rate and rhythm regular. RESPIRATORY: Clear to auscultation. GASTROINTESTINAL: Abdomen is soft. MUSCULOSKELETAL: No tenderness, 2+ edema. DERMATOLOGIC: No skin rash. NEUROLOGIC: Alert and awake and oriented x3. No focal neurologic deficits. Moving all the extremit ies. PSYCHIATRIC: Mood and affect normal. LABORATORY DATA: Potassium is 4.1, BUN is , creatinine is 2.2. ASSESSMENT AND PLAN: 1. Acute kidney injury on chronic kidney disease stage IV with improvement in creatinine. 2. Edema. We will continue on Lasix. 3. Hyperkalemia. 4. Diabetic nephropathy with proteinuria. 5. Anemia. 6. Iron deficiency. 7. Hypertension. Continue on Lasix. Monitor renal function closely. We will follow.
--- NOTE | 2018-03-21 14:14 | EKG ---
Test Reason : Blood Pressure : / mmHG Vent. Rate : 102 BPM Atrial Rate : 102 BPM P-R Int : 142 ms QRS Dur : 074 ms QT Int : 388 ms P-R-T Axes : 045 010 117 degrees QTc Int : 505 ms Sinus tachycardia Anteroseptal infarct , age undetermined Abnormal ECG #1 Confirmed by STANTON HENSLEY ([id number]), assignment editor AV BERRY ([id number]) on 03/21/2018 2:13:56 PM Referred By: Confirmed By:STANTON HENSLEY
--- NOTE | 2018-03-21 14:14 | EKG ---
Test Reason : Blood Pressure : / mmHG Vent. Rate : 102 BPM Atrial Rate : 102 BPM P-R Int : 142 ms QRS Dur : 086 ms QT Int : 390 ms P-R-T Axes : 052 008 096 degrees QTc Int : 508 ms Sinus tachycardia Anterior infarct , age undetermined Abnormal ECG #2 Unchanged Confirmed by STANTON HENSLEY ([id number]), tape editor AV BERRY ([id number]) on 03/21/2018 2:14:25 PM Referred By: Confirmed By:STANTON HENSLEY
[2018-03-21] MEDS: Nicotine 14 MG PATCH TOP SCH (14:24)
[2018-03-21] MEDS: Lidocaine Patch Removal 1 EACH TOP SCH (14:24)
[2018-03-21] MEDS ORDERED: HYDROcodone/Acetaminophen 5/325 mg Tablet PO PRN (20:34)
[2018-03-22] MEDS: Lidocaine 5% Patch TD SCH ×2 (00:19→23:54)
[2018-03-22 06:06] LABS: Anion Gap 12 mmol/L (10-20); BUN (Urea Nitrogen) 42 mg/dL (9.8-20.1); Calc. Creatinine Clearance 49 mL/min (70-130); Calcium 8.6 mg/dL (7.8-10.44); Carbon Dioxide 27 mmol/L (22-29); Chloride 105 mmol/L (98-107); Estimated GFR-MDRD 28; Glucose 92 mg/dL (70-105); Sodium 140 mmol/L (136-145)
[2018-03-22] MEDS: Furosemide 40 MG/4 ML VIAL SLOW IVP SCH ×2 (06:31→13:57)
[2018-03-22] MEDS: Ferrous Sulfate 325 MG TAB PO SCH ×2 (08:44→17:22)
--- NOTE | 2018-03-22 09:34 | PDOC.CTH ---
<NgocroxannaMerlene Lurdes - Last Filed: 03/22/18 09:33> Cardiology Progress Note - Subjective Patient with c/o leg weakness when walking. Otherwise stable. Good output overnight. Cr 1.87 - Objective Vital Signs Temp Pulse Resp BP BP BP Pulse Ox 03/22/18 07:45 98 F 94 18 142/83 H 93 L 03/22/18 06:29 92 20 147/86 H 03/22/18 03:29 97.4 F L 93 18 136/82 94 L 03/22/18 01:50 94 132/79 03/22/18 01:30 101 H 24 H 147/80 H 93 L Admit Weight 169 lb 1.6 oz Weight 195 lb 11.2 oz 03/21/18 03/22/18 03/23/18 06:59 06:59 06:59 Intake Total 1269.6 1282.1 Output Total 2550 2100 Balance -1280.4 -817.9 - Physical Examination General/Neuro: alert & oriented x3 Lungs: CTA Heart: RRR Abdomen: NT/ND Extremities: + edema B - Telemetry Telemetry Rhythm: SR - Labs Result Diagrams: 03/20/18 05:49 03/22/18 04:40 Troponin/CKMB CK-MB (CK-2) 28.7 ng/mL (0-6.6) H* 03/05/18 18:07 Troponin I 162.370 ng/mL (< 0.028) H* 03/06/18 07:44 - Assessment/Plan 1. S/P Anterior MS - s/p PCI- LAD on 03/12/18. S/p PCI-RCA on 03/19/18. On Coreg, ASA, Statin, and Brilinta. 2. JEAN on CKD4 3. ICMO - EF 25-30% 4. HTN 5. Chronic Anemia 6. Current smoker - smoking cessation education given to the pt. 7. History of non-compliance Overall stable. Continue lasix IV and dobutamine at least one more day. LifeVest being arranged for tomorrow. <Blue Kitchen - Last Filed: 03/22/18 14:03> Cardiology Progress Note - Objective Vital Signs Temp Pulse Resp BP BP Pulse Ox 03/22/18 12:25 97.8 F 94 16 159/90 H 94 L 03/22/18 07:45 98 F 94 18 142/83 H 94 L 03/22/18 06:29 92 20 147/86 H 03/22/18 03:29 97.4 F L 93 18 136/82 94 L Admit Weight 169 lb 1.6 oz Weight 195 lb 11.2 oz 03/21/18 03/22/18 03/23/18 06:59 06:59 06:59 Intake Total 1269.6 1282.1 Output Total 2550 2100 Balance -1280.4 -817.9 - Labs Result Diagrams: 03/20/18 05:49 03/22/18 04:40 Troponin/CKMB CK-MB (CK-2) 28.7 ng/mL (0-6.6) H* 03/05/18 18:07 Troponin I 162.370 ng/mL (< 0.028) H* 03/06/18 07:44 - Assessment/Plan D/c coreg; When off dobutrex, restart low dose coreg
[2018-03-22] MEDS: Gabapentin 100 MG CAP PO SCH ×3 (09:51→21:00)
[2018-03-22] MEDS: Atorvastatin Calcium 40 MG TAB PO SCH (09:51)
[2018-03-22] MEDS: TICAGRELOR 90 MG TABLET PO SCH ×2 (09:52→21:00)
[2018-03-22] MEDS: Saccharomyces boulardii 250 MG CAP PO SCH (09:52)
[2018-03-22] MEDS: Insulin Glargine 10 UNITS in Pre-Filled Syringe 1 EACH SC SCH ×2 (10:54→21:57)
--- NOTE | 2018-03-22 10:57 | PDOC.PN ---
- Subjective Encounter Start Date: 03/22/18 Encounter Start Time: 07:40 Patient seen and examined. No new complaints. No overnight events - Objective Resuscitation Status: Resuscitation Status FULL:Full Resuscitation MAR Reviewed: Yes Vital Signs & Weight: Vital Signs (12 hours) Temp Pulse Resp BP BP BP Pulse Ox 03/22/18 07:45 98 F 94 18 142/83 H 94 L 03/22/18 06:29 92 20 147/86 H 03/22/18 03:29 97.4 F L 93 18 136/82 94 L 03/22/18 01:50 94 132/79 03/22/18 01:30 101 H 24 H 147/80 H 93 L Weight Admit Weight 169 lb 1.6 oz Weight 195 lb 11.2 oz Most Recent Monitor Data Heart Rate from ECG 94 NIBP 130/85 NIBP BP-Mean 107 Respiration from ECG 18 SpO2 99 I&O: 03/21/18 03/22/18 03/23/18 06:59 06:59 06:59 Intake Total 1269.6 1282.1 Output Total 2550 2100 Balance -1280.4 -817.9 Result Diagrams: 03/20/18 05:49 03/22/18 04:40 Additional Labs: Accuchecks 03/22/18 03/22/18 03/21/18 05:36 01:22 20:39 POC Glucose 98 129 H 160 H 03/21/18 03/21/18 17:00 11:26 POC Glucose 169 H 135 H EKG Reviewed by me: Yes (nsr) Phys Exam - Physical Examination Constitutional: NAD HEENT: PERRLA, moist MMs, sclera anicteric Neck: no JVD, supple Respiratory: no wheezing, no rales, no rhonchi Cardiovascular: RRR, no significant murmur, no rub Gastrointestinal: soft, non-tender, no distention, positive bowel sounds Musculoskeletal: pulses present, edema present Neurological: non-focal, normal sensation, moves all 4 limbs Lymphatic: no nodes Psychiatric: normal affect, A&O x 3 Skin: no rash, normal turgor Dx/Plan (1) NSTEMI (non-ST elevated myocardial infarction) Code(s): I21.4 - NON-ST ELEVATION (NSTEMI) MYOCARDIAL INFARCTION Status: Acute Comment: s/p cardiac cath and stent placement to LAD and RCA (2) S/P coronary artery stent placement Status: Acute (3) Acute systolic ACC/AHA stage C congestive heart failure Code(s): I50.21 - ACUTE SYSTOLIC (CONGESTIVE) HEART FAILURE Status: Acute (4) Acute renal failure superimposed on stage 3 chronic kidney disease Code(s): N17.9 - ACUTE KIDNEY FAILURE, UNSPECIFIED; N18.3 - CHRONIC KIDNEY DISEASE, STAGE 3 (MODERATE) Status: Acute (5) Hypoglycemia associated with type 2 diabetes mellitus Code(s): E11.649 - TYPE 2 DIABETES MELLITUS WITH HYPOGLYCEMIA WITHOUT COMA Status: Resolved (6) UTI (urinary tract infection) Status: Acute (7) Anemia, normocytic normochromic Code(s): D64.9 - ANEMIA, UNSPECIFIED Status: Chronic (8) HTN (hypertension) Code(s): I10 - ESSENTIAL (PRIMARY) HYPERTENSION Status: Chronic (9) Hyperlipidemia Code(s): E78.5 - HYPERLIPIDEMIA, UNSPECIFIED Status: Chronic (10) Noncompliance with diet and medication regimen Code(s): Z91.11 - PATIENT'S NONCOMPLIANCE WITH DIETARY REGIMEN; Z91.14 - PATIENT 'S OTHER NONCOMPLIANCE WITH MEDICATION REGIMEN Status: Chronic (11) Peripheral neuropathy Code(s): G62.9 - POLYNEUROPATHY, UNSPECIFIED Status: Chronic (12) Tobacco abuse Code(s): Z72.0 - TOBACCO USE Status: Chronic (13) Type II diabetes mellitus Status: Chronic (14) DKA, type 2 Code(s): E11.10 - TYPE 2 DIABETES MELLITUS WITH KETOACIDOSIS WITHOUT COMA Status: Resolved (15) Anasarca associated with disorder of kidney Code(s): N04.9 - NEPHROTIC SYNDROME WITH UNSPECIFIED MORPHOLOGIC CHANGES Status: Acute (16) 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 Review of Systems - Review of Systems ENT: negative: Ear Pain, Ear Discharge, Nose Pain, Nose Discharge, Nose Congestion, Mouth Pain, Mouth Swelling, Throat Pain, Throat Swelling, Other Respiratory: negative: Cough, Dry, Shortness of Breath, Hemoptysis, SOB with Excertion, Pleuritic Pain, Sputum, Wheezing Cardiovascular: edema. negative: chest pain, palpitations, orthopnea, paroxysmal nocturnal dyspnea, light headedness, other Gastrointestinal: negative: Nausea, Vomiting, Abdominal Pain, Diarrhea, Constipation, Melena, Hematochezia, Other Genitourinary: negative: Dysuria, Frequency, Incontinence, Hematuria, Retention , Other Musculoskeletal: negative: Neck Pain, Shoulder Pain, Arm Pain, Back Pain, Hand Pain, Leg Pain, Foot Pain, Other Skin: negative: Rash, Lesions, Jan, Bruising, Other - Medications/Allergies Allergies/Adverse Reactions: Allergies Allergy/AdvReac Type Severity Reaction Status Date / Time camphor Allergy Verified 12/03/17 22:05 ciprofloxacin [From Cipro] Allergy Verified 12/03/17 22:05 hydralazine Allergy Verified 07/17/17 14:46 insulin lispro Allergy Verified 03/07/18 17:34 [From Humalog Mix] insulin lispro protamine Allergy Verified 03/07/18 17:34 [From Humalog Mix] naproxen [From Naprosyn] Allergy Verified 07/17/17 14:46 Medications: Current Medications Acetaminophen (Tylenol) 650 mg PO Q4H PRN PRN Reason: Headache/Fever or Pain Last Admin: 03/09/18 07:52 Dose: 650 mg Hydrocodone Bitart/Acetaminophen ([place] 5/325) 1 tab PO Q4H PRN PRN Reason: Severe Pain (7-10) Last Admin: 03/21/18 20:40 Dose: 1 tab Al Hydroxide/Mg Hydroxide (Maalox) 15 ml PO Q4H PRN PRN Reason: Heartburn or Indigestion Artificial Tears (Tears Naturale) 0 drop EA EYE PRN PRN PRN Reason: Dry Eyes Aspirin (Aspirin Chewable) 81 mg PO DAILY REPLACED BY [facility] Last Admin: 03/22/18 09:51 Dose: 81 mg Atorvastatin Calcium (Lipitor) 40 mg PO DAILY REPLACED BY [facility] Last Admin: 03/22/18 09:51 Dose: 40 mg Bisacodyl (Dulcolax) 10 mg PO DAILYPRN PRN PRN Reason: Constipation Calcium Carbonate (Tums) 1,000 mg PO Q4H PRN PRN Reason: Heartburn or Indigestion Dextrose/Water (Dextrose 50%) 25 gm SLOW IVP PRN PRN PRN Reason: Hypoglycemia Last Admin: 03/16/18 08:01 Dose: 25 gm Docusate Sodium (Colace) 100 mg PO BIDPRN PRN PRN Reason: Constipation Epoetin Sarkis (Procrit) 10,000 units SC Q7D REPLACED BY [facility] Last Admin: 03/20/18 14:12 Dose: 10,000 units Ferrous Sulfate (Feosol) 325 mg PO BID-WM REPLACED BY [facility] Last Admin: 03/22/18 08:44 Dose: 325 mg Furosemide (Lasix) 40 mg SLOW IVP 0600,1400 REPLACED BY [facility] Last Admin: 03/22/18 06:31 Dose: 40 mg Gabapentin (Neurontin) 100 mg PO TID REPLACED BY [facility] Last Admin: 03/22/18 09:51 Dose: 100 mg Glucagon (Glucagon) 1 mg IM PRN PRN PRN Reason: Hypoglycemia Guaifenesin (Robitussin Sf) 200 mg PO Q4H PRN PRN Reason: Cough Dextrose/Water (D5w) 1,000 mls @ 0 mls/hr IV .Q0M PRN PRN Reason: Hypoglycemia Dobutamine HCl 1,000 mg/ (Dextrose/Water) 250 mls @ 3.31 mls/hr IVPB INF REPLACED BY [facility] Last Admin: 03/22/18 05:01 Dose: 250 mls Insulin Glargine 10 units/ (Miscellaneous Medication) 0.1 mls @ 0 mls/hr SC HS REPLACED BY [facility] Insulin Glargine 10 units/ (Miscellaneous Medication) 0.1 mls @ 0 mls/hr SC QAM REPLACED BY [facility] Last Admin: 03/22/18 10:54 Dose: Not Given Insulin Human Regular (Humulin R) 0 units SC .MODERATE SLIDING SC PRN PRN Reason: Moderate Correctional Scale Isosorbide Mononitrate (Imdur Er) 60 mg PO DAILY REPLACED BY [facility] Last Admin: 03/22/18 09:52 Dose: 60 mg Lactulose (Lactulose) 20 gm PO DAILYPRN PRN PRN Reason: Constipation Lidocaine (Lidoderm 5% Patch) 1 patch TD 2594 REPLACED BY [facility] Last Admin: 03/22/18 00:19 Dose: Not Given Loperamide HCl (Imodium) 2 mg PO PRN PRN PRN Reason: Diarrhea/Loose Stools Mineral Oil/White Petrolatum (Eucerin Cream) 0 gm TOP BIDPRN PRN PRN Reason: Dry Skin Miscellaneous Medication (Lidocaine Patch Removal) 1 each TOP 1200 REPLACED BY [facility] Last Admin: 03/21/18 14:24 Dose: Not Given Nicotine (Nicoderm Patch) 14 mg TOP Q24HR REPLACED BY [facility] Last Admin: 03/21/18 14:24 Dose: 14 mg Nitroglycerin (Nitrostat) 0.4 mg SL Q5MIN PRN PRN Reason: Chest Pain Ondansetron HCl (Zofran Odt) 4 mg PO Q6H PRN PRN Reason: Nausea/Vomiting Ondansetron HCl (Zofran) 4 mg IVP Q6H PRN PRN Reason: Nausea/Vomiting Last Admin: 03/06/18 12:36 Dose: 4 mg Pantoprazole Sodium (Protonix) 40 mg PO DAILY REPLACED BY [facility] Last Admin: 03/22/18 09:52 Dose: 40 mg Phenol (Chloraseptic [place] 180 Ml Bot) 0 ml PO PRN PRN PRN Reason: Sore Throat Saccharomyces Boulardii (Florastor) 250 mg PO DAILY REPLACED BY [facility] Last Admin: 03/22/18 09:52 Dose: 250 mg Sodium Chloride (Flush - Normal Saline) 10 ml IVF Q12HR REPLACED BY [facility] Last Admin: 03/22/18 09:53 Dose: Not Given Sodium Chloride (Flush - Normal Saline) 10 ml IVF PRN PRN PRN Reason: Saline Flush Last Admin: 03/22/18 06:31 Dose: 10 ml Sodium Chloride ([place] Nasal [place] 0.65%) 0 ml EA NARE QIDPRN PRN PRN Reason: Nasal Congestion Ticagrelor (Brilinta) 90 mg PO BID REPLACED BY [facility] Last Admin: 03/22/18 09:52 Dose: 90 mg
[2018-03-22] MEDS: Lidocaine Patch Removal 1 EACH TOP SCH (11:00)
--- NOTE | 2018-03-22 12:49 | PRG ---
DATE OF SERVICE: 03/22/2018 SUBJECTIVE: Patient was seen and examined at bedside and overnight events noted. Patient denies any shortness of breath or chest pain or palpitation. No history of nausea or vomiting or diarrhea or f ever or chills or cramps. OBJECTIVE: General: This is a well-built white female in no apparent distress. Vital Signs: Temperature 98.0, pulse 94, respiratory rate 18, and blood pressure 142/83. I's and O' s was negative 800 yesterday. General: This is an elderly female in no apparent distress HEENT: Atraumatic, normocephalic, Oral mucosa is moist. Neck: Supple. Cardiovascular: S1 and S2 heard. Rate and rhythm regular. Respiratory: Clear to auscultation. Gastrointestinal: Abdomen is soft. Musculoskeletal: 2+ edema. Dermatologic: No skin rash. Neurologic: Alert and awake and oriented x3. No focal neurologic deficits. Moving all the extremit ies. Psychiatric: Mood and affect normal. LABORATORY DATA: Potassium is 4.0, BUN is 42, creatinine is 1.8. ASSESSMENT AND PLAN: 1. Acute kidney injury on chronic kidney stage IV with good improvement in creatinine. Currently on Lasix, most likely from cardiorenal syndrome. 2. Cardiorenal syndrome. Creatinine better with IV Lasix. 3. Edema, better. 4. Hyperkalemia, stable. 5. Hypertension, stable. 6. Anemia 7. Diabetic nephropathy with proteinuria. 8. Anemia of chronic disease. 9. Continue on intravenous Lasix with close monitoring of renal function and electrolytes. We will follow.
[2018-03-22] MEDS: Nicotine 14 MG PATCH TOP SCH (14:25)
[2018-03-22] MEDS: Insulin Regular 300 UNITS/3 ML VIAL SC PRN (14:25)
--- NOTE | 2018-03-22 17:36 | EKG ---
Test Reason : POST STENT Blood Pressure : / mmHG Vent. Rate : 070 BPM Atrial Rate : 070 BPM P-R Int : 136 ms QRS Dur : 072 ms QT Int : 324 ms P-R-T Axes : 062 021 103 degrees QTc Int : 349 ms Normal sinus rhythm Low voltage QRS Cannot rule out Anteroseptal infarct (cited on or before 05-MAR-2018) Abnormal ECG When compared with ECG of 13-MAR-2018 06:56, QT has shortened Confirmed by ROSAMARIA MEDINA ([id number]) on 03/22/2018 5:36:14 PM Referred By: BENJAMIN Confirmed By:ROSAMARIA MEDINA
--- NOTE | 2018-03-22 17:48 | EKG ---
Test Reason : Blood Pressure : / mmHG Vent. Rate : 089 BPM Atrial Rate : 089 BPM P-R Int : 154 ms QRS Dur : 060 ms QT Int : 334 ms P-R-T Axes : 058 028 106 degrees QTc Int : 406 ms Normal sinus rhythm Low voltage QRS Cannot rule out Anteroseptal infarct (cited on or before 05-MAR-2018) Abnormal ECG When compared with ECG of 19-MAR-2018 09:44, (Unconfirmed) QT has lengthened Confirmed by ROSAMARIA MEDINA (2) on 03/22/2018 5:47:34 PM Referred By: BENJAMIN Confirmed By:ROSAMARIA MEDINA
[2018-03-22] MEDS: Acetaminophen 325 MG TAB PO PRN (21:00)
[2018-03-23 05:32] LABS: #Basophils 0.1 thou/uL (0.0-0.2); #Eosinphils 0.3 thou/uL (0.0-0.7); #Lymphocytes 1.3 thou/uL (1.20-3.40); #Monocytes 0.6 thou/uL (0.11-0.59); #Neutrophils 4.7 thou/uL (1.40-6.50); %Eosinophils 3.9 % (0.0-10.0); %Lymphocytes 19.1 % (21.0-51.0); %Monocytes 8.1 % (0.0-10.0); %Neutrophils 67.9 % (42.0-75.0); Hemoglobin 8.4 g/dL (12.0-16.0); Mean Corpuscular HGB CONC 30.6 g/dL (32.0-36.0); Mean Corpuscular Hemoglobin 28.8 pg (27.0-31.0); Mean Platelet Volume 7.3 fL (7.4-10.4); Platelet Count 507 thou/uL (130-400); RBC Distribution Width 14.3 % (11.5-14.5); Red Blood Cell (RBC) Count 2.92 mill/uL (4.20-5.40); White Blood Cell (WBC) Count 6.9 thou/uL (4.8-10.8)
[2018-03-23 05:42] LABS: Anion Gap 12 mmol/L (10-20); BUN (Urea Nitrogen) 38 mg/dL (9.8-20.1); Calc. Creatinine Clearance 47 mL/min (70-130); Calcium 8.4 mg/dL (7.8-10.44); Carbon Dioxide 27 mmol/L (22-29); Chloride 105 mmol/L (98-107); Estimated GFR-MDRD 27; Glucose 139 mg/dL (70-105); Magnesium 1.9 mg/dL (1.6-2.6); Phosphorus 4.6 mg/dL (2.3-4.7); Potassium 4.1 mmol/L (3.5-5.1); Sodium 140 mmol/L (136-145)
[2018-03-23] MEDS: Furosemide 40 MG/4 ML VIAL SLOW IVP SCH ×2 (05:42→15:04)
[2018-03-23 05:44] LABS: ALT (SGPT) 21 U/L (8-55); AST (SGOT) 10 U/L (5-34); Albumin 2.5 g/dL (3.5-5.0); Alkaline Phosphatase 334 U/L (40-150); Bilirubin, Direct 0.1 mg/dL (0.1-0.3); Bilirubin, Total 0.2 mg/dL (0.2-1.2); Protein, Total 5.4 g/dL (6.0-8.3)
[2018-03-23] MEDS: Ferrous Sulfate 325 MG TAB PO SCH ×2 (08:11→17:14)
[2018-03-23] MEDS: TICAGRELOR 90 MG TABLET PO SCH ×2 (08:15→20:43)
[2018-03-23] MEDS: Saccharomyces boulardii 250 MG CAP PO SCH (08:15)
[2018-03-23] MEDS: Atorvastatin Calcium 40 MG TAB PO SCH (08:16)
[2018-03-23] MEDS: Gabapentin 100 MG CAP PO SCH ×3 (08:17→20:43)
[2018-03-23] MEDS: Insulin Glargine 10 UNITS in Pre-Filled Syringe 1 EACH SC SCH ×2 (09:16→20:43)
--- NOTE | 2018-03-23 10:45 | PDOC.PN ---
- Subjective Encounter Start Date: 03/23/18 Encounter Start Time: 08:30 Patient seen and examined. No new complaints. No overnight events - Objective Resuscitation Status: Resuscitation Status FULL:Full Resuscitation MAR Reviewed: Yes Vital Signs & Weight: Vital Signs (12 hours) Temp Pulse Resp BP BP Pulse Ox 03/23/18 08:13 97.6 F 100 18 167/91 H 94 L 03/23/18 04:00 97.6 F 100 16 132/71 94 L 03/23/18 03:07 94 L 03/23/18 00:00 104 H 16 164/90 H 93 L Weight Admit Weight 169 lb 1.6 oz Weight 190 lb 8 oz Most Recent Monitor Data Heart Rate from ECG 94 NIBP 130/85 NIBP BP-Mean 107 Respiration from ECG 18 SpO2 99 I&O: 03/22/18 03/23/18 03/24/18 06:59 06:59 06:59 Intake Total 1282.1 1764 Output Total 2100 3000 Balance -817.9 -1236 Result Diagrams: 03/23/18 05:13 03/23/18 05:13 Additional Labs: Accuchecks 03/22/18 03/22/18 03/22/18 21:14 16:57 13:53 POC Glucose 130 H 148 H 157 H 03/22/18 10:42 POC Glucose 270 H EKG Reviewed by me: Yes (nsr) Phys Exam - Physical Examination Constitutional: NAD HEENT: PERRLA, moist MMs, sclera anicteric Neck: no JVD, supple Respiratory: no wheezing, no rales, no rhonchi Cardiovascular: RRR, no significant murmur, no rub Gastrointestinal: soft, non-tender, no distention, positive bowel sounds Musculoskeletal: pulses present, edema present Neurological: non-focal, normal sensation, moves all 4 limbs Lymphatic: no nodes Psychiatric: normal affect, A&O x 3 Skin: no rash, normal turgor Dx/Plan (1) NSTEMI (non-ST elevated myocardial infarction) Code(s): I21.4 - NON-ST ELEVATION (NSTEMI) MYOCARDIAL INFARCTION Status: Acute Comment: s/p cardiac cath and stent placement to LAD and RCA (2) S/P coronary artery stent placement Status: Acute (3) Acute systolic ACC/AHA stage C congestive heart failure Code(s): I50.21 - ACUTE SYSTOLIC (CONGESTIVE) HEART FAILURE Status: Acute (4) Acute renal failure superimposed on stage 3 chronic kidney disease Code(s): N17.9 - ACUTE KIDNEY FAILURE, UNSPECIFIED; N18.3 - CHRONIC KIDNEY DISEASE, STAGE 3 (MODERATE) Status: Acute (5) Hypoglycemia associated with type 2 diabetes mellitus Code(s): E11.649 - TYPE 2 DIABETES MELLITUS WITH HYPOGLYCEMIA WITHOUT COMA Status: Resolved (6) UTI (urinary tract infection) Status: Acute (7) Anemia, normocytic normochromic Code(s): D64.9 - ANEMIA, UNSPECIFIED Status: Chronic (8) HTN (hypertension) Code(s): I10 - ESSENTIAL (PRIMARY) HYPERTENSION Status: Chronic (9) Hyperlipidemia Code(s): E78.5 - HYPERLIPIDEMIA, UNSPECIFIED Status: Chronic (10) Noncompliance with diet and medication regimen Code(s): Z91.11 - PATIENT'S NONCOMPLIANCE WITH DIETARY REGIMEN; Z91.14 - PATIENT 'S OTHER NONCOMPLIANCE WITH MEDICATION REGIMEN Status: Chronic (11) Peripheral neuropathy Code(s): G62.9 - POLYNEUROPATHY, UNSPECIFIED Status: Chronic (12) Tobacco abuse Code(s): Z72.0 - TOBACCO USE Status: Chronic (13) Type II diabetes mellitus Status: Chronic (14) DKA, type 2 Code(s): E11.10 - TYPE 2 DIABETES MELLITUS WITH KETOACIDOSIS WITHOUT COMA Status: Resolved (15) Anasarca associated with disorder of kidney Code(s): N04.9 - NEPHROTIC SYNDROME WITH UNSPECIFIED MORPHOLOGIC CHANGES Status: Acute (16) 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 Review of Systems - Review of Systems ENT: negative: Ear Pain, Ear Discharge, Nose Pain, Nose Discharge, Nose Congestion, Mouth Pain, Mouth Swelling, Throat Pain, Throat Swelling, Other Respiratory: negative: Cough, Dry, Shortness of Breath, Hemoptysis, SOB with Excertion, Pleuritic Pain, Sputum, Wheezing Cardiovascular: negative: chest pain, palpitations, orthopnea, paroxysmal nocturnal dyspnea, edema, light headedness, other Gastrointestinal: negative: Nausea, Vomiting, Abdominal Pain, Diarrhea, Constipation, Melena, Hematochezia, Other Genitourinary: negative: Dysuria, Frequency, Incontinence, Hematuria, Retention , Other Musculoskeletal: negative: Neck Pain, Shoulder Pain, Arm Pain, Back Pain, Hand Pain, Leg Pain, Foot Pain, Other Skin: negative: Rash, Lesions, Jan, Bruising, Other - Medications/Allergies Allergies/Adverse Reactions: Allergies Allergy/AdvReac Type Severity Reaction Status Date / Time camphor Allergy Verified 12/03/17 22:05 ciprofloxacin [From Cipro] Allergy Verified 12/03/17 22:05 hydralazine Allergy Verified 07/17/17 14:46 insulin lispro Allergy Verified 03/07/18 17:34 [From Humalog Mix] insulin lispro protamine Allergy Verified 03/07/18 17:34 [From Humalog Mix] naproxen [From Naprosyn] Allergy Verified 07/17/17 14:46 Medications: Current Medications Acetaminophen (Tylenol) 650 mg PO Q4H PRN PRN Reason: Headache/Fever or Pain Last Admin: 03/22/18 21:00 Dose: 650 mg Hydrocodone Bitart/Acetaminophen ([place] 5/325) 1 tab PO Q4H PRN PRN Reason: Severe Pain (7-10) Last Admin: 03/21/18 20:40 Dose: 1 tab Al Hydroxide/Mg Hydroxide (Maalox) 15 ml PO Q4H PRN PRN Reason: Heartburn or Indigestion Artificial Tears (Tears Naturale) 0 drop EA EYE PRN PRN PRN Reason: Dry Eyes Aspirin (Aspirin Chewable) 81 mg PO DAILY [facility] Last Admin: 03/23/18 08:14 Dose: 81 mg Atorvastatin Calcium (Lipitor) 40 mg PO DAILY [facility] Last Admin: 03/23/18 08:16 Dose: 40 mg Bisacodyl (Dulcolax) 10 mg PO DAILYPRN PRN PRN Reason: Constipation Last Admin: 03/23/18 06:10 Dose: 10 mg Calcium Carbonate (Tums) 1,000 mg PO Q4H PRN PRN Reason: Heartburn or Indigestion Dextrose/Water (Dextrose 50%) 25 gm SLOW IVP PRN PRN PRN Reason: Hypoglycemia Last Admin: 03/16/18 08:01 Dose: 25 gm Docusate Sodium (Colace) 100 mg PO BIDPRN PRN PRN Reason: Constipation Epoetin Sarkis (Procrit) 10,000 units SC Q7D [facility] Last Admin: 03/20/18 14:12 Dose: 10,000 units Ferrous Sulfate (Feosol) 325 mg PO BID-WM [facility] Last Admin: 03/23/18 08:11 Dose: 325 mg Furosemide (Lasix) 40 mg SLOW IVP 0600,1400 [facility] Last Admin: 03/23/18 05:42 Dose: 40 mg Gabapentin (Neurontin) 100 mg PO TID [facility] Last Admin: 03/23/18 08:17 Dose: 100 mg Glucagon (Glucagon) 1 mg IM PRN PRN PRN Reason: Hypoglycemia Guaifenesin (Robitussin Sf) 200 mg PO Q4H PRN PRN Reason: Cough Dextrose/Water (D5w) 1,000 mls @ 0 mls/hr IV .Q0M PRN PRN Reason: Hypoglycemia Dobutamine HCl 1,000 mg/ (Dextrose/Water) 250 mls @ 3.31 mls/hr IVPB INF [facility] Last Admin: 03/23/18 05:42 Dose: 250 mls Insulin Glargine 10 units/ (Miscellaneous Medication) 0.1 mls @ 0 mls/hr SC HS [facility] Last Admin: 03/22/18 21:57 Dose: 0.1 mls Insulin Glargine 10 units/ (Miscellaneous Medication) 0.1 mls @ 0 mls/hr SC QAM [facility] Last Admin: 03/23/18 09:16 Dose: 0.1 mls Insulin Human Regular (Humulin R) 0 units SC .MODERATE SLIDING SC PRN PRN Reason: Moderate Correctional Scale Last Admin: 03/22/18 14:25 Dose: 2 units Isosorbide Mononitrate (Imdur Er) 60 mg PO DAILY [facility] Last Admin: 03/23/18 08:15 Dose: 60 mg Lactulose (Lactulose) 20 gm PO DAILYPRN PRN PRN Reason: Constipation Lidocaine (Lidoderm 5% Patch) 1 patch TD 7463 [facility] Last Admin: 03/22/18 23:54 Dose: Not Given Loperamide HCl (Imodium) 2 mg PO PRN PRN PRN Reason: Diarrhea/Loose Stools Mineral Oil/White Petrolatum (Eucerin Cream) 0 gm TOP BIDPRN PRN PRN Reason: Dry Skin Miscellaneous Medication (Lidocaine Patch Removal) 1 each TOP 1200 [facility] Last Admin: 03/22/18 11:00 Dose: Not Given Nicotine (Nicoderm Patch) 14 mg TOP Q24HR [facility] Last Admin: 03/22/18 14:25 Dose: 14 mg Nitroglycerin (Nitrostat) 0.4 mg SL Q5MIN PRN PRN Reason: Chest Pain Ondansetron HCl (Zofran Odt) 4 mg PO Q6H PRN PRN Reason: Nausea/Vomiting Ondansetron HCl (Zofran) 4 mg IVP Q6H PRN PRN Reason: Nausea/Vomiting Last Admin: 03/06/18 12:36 Dose: 4 mg Pantoprazole Sodium (Protonix) 40 mg PO DAILY [facility] Last Admin: 03/23/18 08:15 Dose: 40 mg Phenol (Chloraseptic [place] 180 Ml Bot) 0 ml PO PRN PRN PRN Reason: Sore Throat Saccharomyces Boulardii (Florastor) 250 mg PO DAILY [facility] Last Admin: 03/23/18 08:15 Dose: 250 mg Sodium Chloride (Flush - Normal Saline) 10 ml IVF Q12HR [facility] Last Admin: 03/23/18 08:18 Dose: Not Given Sodium Chloride (Flush - Normal Saline) 10 ml IVF PRN PRN PRN Reason: Saline Flush Last Admin: 03/23/18 05:42 Dose: 10 ml Sodium Chloride ([place] Nasal [place] 0.65%) 0 ml EA NARE QIDPRN PRN PRN Reason: Nasal Congestion Ticagrelor (Brilinta) 90 mg PO BID [facility] Last Admin: 03/23/18 08:15 Dose: 90 mg
[2018-03-23] MEDS: Lidocaine Patch Removal 1 EACH TOP SCH (12:06)
--- NOTE | 2018-03-23 14:44 | PDOC.CTH ---
<Pattie Chapman - Last Filed: 03/23/18 14:45> Cardiology Progress Note - Subjective The pt seen and examined. No overnight events. No cardiac complaints. - Objective Vital Signs Temp Pulse Resp BP BP Pulse Ox 03/23/18 12:00 97.8 F 100 18 158/78 H 94 L 03/23/18 08:13 97.6 F 100 18 167/91 H 94 L 03/23/18 08:10 94 L 03/23/18 04:00 97.6 F 100 16 132/71 94 L 03/23/18 03:07 94 L Admit Weight 169 lb 1.6 oz Weight 190 lb 8 oz 03/22/18 03/23/18 03/24/18 06:59 06:59 06:59 Intake Total 1282.1 1764 Output Total 2100 3000 Balance -817.9 -1236 - Physical Examination General/Neuro: alert & oriented x3 Lungs: CTA (diminished at bases) Heart: RRR Abdomen: soft Extremities: other: (generalized edema) - Telemetry Telemetry Rhythm: SR - Labs Result Diagrams: 03/23/18 05:13 03/23/18 05:13 Troponin/CKMB CK-MB (CK-2) 28.7 ng/mL (0-6.6) H* 03/05/18 18:07 Troponin I 162.370 ng/mL (< 0.028) H* 03/06/18 07:44 - Assessment/Plan 1. S/P Anterior NE - s/p PCI- LAD on 03/12/18. S/p PCI-RCA on 03/19/18. On Coreg, ASA, Statin, and Brilinta. 2. JEAN on CKD4 - slightly worse today. cont. 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 3. ICMO - EF 25-30% on 03/20/18 - Cont. Dobutamin IV and Lasix 40mg qd. She will need likely a Life-Vest on d/c. She will need to be compliant with F/U. 4. HTN - stable 5. Chronic Anemia 6. Current smoker - smoking cessation education given to the pt. 7. History of non-compliance 8. hyperlipidemia - on Statin. MAR reviewed * Cont. Dobutamin drip which need to be d/c'd and the betablockers restarted. * D/c home with LifeVest on d/c. Review of Systems - Review of Systems Constitutional: reports: no symptoms reported EENTM: reports: no symptoms reported Respiratory: reports: no symptoms reported Cardiac (ROS): reports: no symptoms reported ABD/GI: reports: no symptoms reported : reports: no symptoms reported Musculoskeletal: reports: no symptoms reported Skin: reports: no symptoms reported Neurological: reports: no symptoms reported <Souleymane Robledo - Last Filed: 03/23/18 15:32> Cardiology Progress Note - Objective Vital Signs Temp Pulse Resp BP BP Pulse Ox 03/23/18 12:00 97.8 F 100 18 158/78 H 94 L 03/23/18 08:13 97.6 F 100 18 167/91 H 94 L 03/23/18 08:10 94 L 03/23/18 04:00 97.6 F 100 16 132/71 94 L Admit Weight 169 lb 1.6 oz Weight 190 lb 8 oz 03/22/18 03/23/18 03/24/18 06:59 06:59 06:59 Intake Total 1282.1 1764 Output Total 2100 3000 Balance -817.9 -1236 - Labs Result Diagrams: 03/23/18 05:13 03/23/18 05:13 Troponin/CKMB CK-MB (CK-2) 28.7 ng/mL (0-6.6) H* 03/05/18 18:07 Troponin I 162.370 ng/mL (< 0.028) H* 03/06/18 07:44 - Assessment/Plan Pt. seen and eval. by me. She is almost demanding to go home. She still has significant edema. Her wt. is up 26# over admission. She says she is not SOB and denies chest pain. She has multiple medical problems as noted above. In my opinion she is not well enough for d/c. I will d/c the dobutamine and see how she does. I agree with the A/P by the [employer].
--- NOTE | 2018-03-23 14:52 | PRG ---
DATE OF SERVICE: 03/23/2018 SUBJECTIVE: This is a 52-year-old female being seen for acute kidney injury. The patient denies any nausea, vomiting, or chest pain. OBJECTIVE: GENERAL: Patient is awake, alert. VITAL SIGNS: Afebrile, pulse 100, breathing 16, blood pressure 132/71. GENERAL APPEARANCE AND MENTAL STATUS: Fair. HEAD/NECK: Normocephalic. Atraumatic. EYES: EOMI. No deformity. EARS: Clear. No ulcers. NOSE: Intact. No lesions. MOUTH: Clear. No discharge. THROAT: Clear. No exudate. LUNGS: Clear. No crackles. CARDIAC: S1, S2. No rub. ABDOMEN: Benign. BS+. GENITALIA/RECTUM: Loo absent. BACK/EXTREMITIES: Edema 0+ Ulcer- NEUROLOGICAL: Alert and motor intact. SKIN: Rash- Bruise- LYMPHATICS: Edema- Ulcer- LABORATORY DATA: Lab show hemoglobin 8.4, creatinine . ASSESSMENT AND RECOMMENDATIONS: 1. Stage IV chronic kidney disease, stable. 2. Hypertension, stable. 3. Anemia, stable. 4. Medication based on GFR approved. The patient will follow up to see me.
[2018-03-23] MEDS: Nicotine 14 MG PATCH TOP SCH (15:05)
[2018-03-23] MEDS ORDERED: Metolazone 5 MG TAB PO SCH (15:45)
[2018-03-23] MEDS: Carvedilol 3.125 MG TAB PO SCH (17:14)
[2018-03-23] MEDS: Insulin Regular 300 UNITS/3 ML VIAL SC PRN (18:09)
--- NOTE | 2018-03-23 18:10 | RAD ---
ONE VIEW CHEST: HISTORY: Congestive heart failure. FINDINGS: Obscuration of the left and right hemidiaphragm, as well as the cardiac silhouette, due to pleural an d parenchymal changes. Pulmonary vessels are prominent. No pneumothorax. IMPRESSION: Congestive heart failure. POS: THAD
[2018-03-24] MEDS: Lidocaine 5% Patch TD SCH (02:41)
[2018-03-24] MEDS: Furosemide 40 MG/4 ML VIAL SLOW IVP SCH (05:46)
[2018-03-24 06:19] LABS: Anion Gap 13 mmol/L (10-20); BUN (Urea Nitrogen) 35 mg/dL (9.8-20.1); Calc. Creatinine Clearance 52 mL/min (70-130); Calcium 8.6 mg/dL (7.8-10.44); Carbon Dioxide 26 mmol/L (22-29); Chloride 105 mmol/L (98-107); Estimated GFR-MDRD 31; Glucose 155 mg/dL (70-105); Sodium 140 mmol/L (136-145)
[2018-03-24] MEDS ORDERED: Metolazone 5 MG TAB PO SCH ×2 (07:00→08:30)
[2018-03-24] MEDS ORDERED: Furosemide 40 MG/4 ML VIAL SLOW IVP SCH (07:01)
[2018-03-24] MEDS ORDERED: Furosemide 100 MG/10 ML VIAL SLOW IVP SCH ×2 (07:15→14:00)
--- NOTE | 2018-03-24 09:21 | PDOC.PN ---
- Subjective Encounter Start Date: 03/24/18 Encounter Start Time: 07:40 Patient seen and examined. No new complaints. No overnight events - Objective Resuscitation Status: Resuscitation Status FULL:Full Resuscitation MAR Reviewed: Yes Vital Signs & Weight: Vital Signs (12 hours) Temp Pulse Resp BP Pulse Ox 03/24/18 08:00 98.2 F 99 18 142/87 H 93 L 03/24/18 04:00 97.6 F 96 16 142/89 H 92 L Weight Admit Weight 169 lb 1.6 oz Weight 190 lb 8 oz Most Recent Monitor Data Heart Rate from ECG 94 NIBP 130/85 NIBP BP-Mean 107 Respiration from ECG 18 SpO2 99 I&O: 03/23/18 03/24/18 03/25/18 06:59 06:59 06:59 Intake Total 1764 1220 Output Total 3000 2600 Balance -1236 -1380 Result Diagrams: 03/23/18 05:13 03/24/18 05:56 Additional Labs: Accuchecks 03/23/18 03/23/18 03/23/18 20:41 17:05 11:10 POC Glucose 176 H 182 H 145 H EKG Reviewed by me: Yes Phys Exam - Physical Examination Constitutional: NAD HEENT: PERRLA, moist MMs, sclera anicteric Neck: no JVD, supple Respiratory: no wheezing, no rales, no rhonchi reduced air entry Cardiovascular: RRR, no significant murmur, no rub Gastrointestinal: soft, non-tender, no distention, positive bowel sounds Musculoskeletal: pulses present, edema present Neurological: non-focal, normal sensation, moves all 4 limbs Psychiatric: normal affect, A&O x 3 Skin: no rash, normal turgor Dx/Plan (1) NSTEMI (non-ST elevated myocardial infarction) Code(s): I21.4 - NON-ST ELEVATION (NSTEMI) MYOCARDIAL INFARCTION Status: Acute Comment: s/p cardiac cath and stent placement to LAD and RCA (2) S/P coronary artery stent placement Status: Acute (3) Acute systolic ACC/AHA stage C congestive heart failure Code(s): I50.21 - ACUTE SYSTOLIC (CONGESTIVE) HEART FAILURE Status: Acute (4) Acute renal failure superimposed on stage 3 chronic kidney disease Code(s): N17.9 - ACUTE KIDNEY FAILURE, UNSPECIFIED; N18.3 - CHRONIC KIDNEY DISEASE, STAGE 3 (MODERATE) Status: Acute (5) Hypoglycemia associated with type 2 diabetes mellitus Code(s): E11.649 - TYPE 2 DIABETES MELLITUS WITH HYPOGLYCEMIA WITHOUT COMA Status: Resolved (6) UTI (urinary tract infection) Status: Acute (7) Anemia, normocytic normochromic Code(s): D64.9 - ANEMIA, UNSPECIFIED Status: Chronic (8) HTN (hypertension) Code(s): I10 - ESSENTIAL (PRIMARY) HYPERTENSION Status: Chronic (9) Hyperlipidemia Code(s): E78.5 - HYPERLIPIDEMIA, UNSPECIFIED Status: Chronic (10) Noncompliance with diet and medication regimen Code(s): Z91.11 - PATIENT'S NONCOMPLIANCE WITH DIETARY REGIMEN; Z91.14 - PATIENT 'S OTHER NONCOMPLIANCE WITH MEDICATION REGIMEN Status: Chronic (11) Peripheral neuropathy Code(s): G62.9 - POLYNEUROPATHY, UNSPECIFIED Status: Chronic (12) Tobacco abuse Code(s): Z72.0 - TOBACCO USE Status: Chronic (13) Type II diabetes mellitus Status: Chronic (14) DKA, type 2 Code(s): E11.10 - TYPE 2 DIABETES MELLITUS WITH KETOACIDOSIS WITHOUT COMA Status: Resolved (15) Anasarca associated with disorder of kidney Code(s): N04.9 - NEPHROTIC SYNDROME WITH UNSPECIFIED MORPHOLOGIC CHANGES Status: Acute (16) Nephrotic syndrome due to diabetes mellitus Code(s): E11.21 - TYPE 2 DIABETES MELLITUS WITH DIABETIC NEPHROPATHY Status: Chronic - Plan cont current plan of care, plan discussed w/ family * change lasix 80 mg po bid * add zoroxolyn * needs life vest * medication reviewed as below * symptomatic treatment * high risk for readmission. Review of Systems - Review of Systems ENT: negative: Ear Pain, Ear Discharge, Nose Pain, Nose Discharge, Nose Congestion, Mouth Pain, Mouth Swelling, Throat Pain, Throat Swelling, Other Respiratory: negative: Cough, Dry, Shortness of Breath, Hemoptysis, SOB with Excertion, Pleuritic Pain, Sputum, Wheezing Cardiovascular: edema Gastrointestinal: negative: Nausea, Vomiting, Abdominal Pain, Diarrhea, Constipation, Melena, Hematochezia, Other Genitourinary: negative: Dysuria, Frequency, Incontinence, Hematuria, Retention , Other Musculoskeletal: negative: Neck Pain, Shoulder Pain, Arm Pain, Back Pain, Hand Pain, Leg Pain, Foot Pain, Other - Medications/Allergies Allergies/Adverse Reactions: Allergies Allergy/AdvReac Type Severity Reaction Status Date / Time camphor Allergy Verified 12/03/17 22:05 ciprofloxacin [From Cipro] Allergy Verified 12/03/17 22:05 hydralazine Allergy Verified 07/17/17 14:46 insulin lispro Allergy Verified 03/07/18 17:34 [From Humalog Mix] insulin lispro protamine Allergy Verified 03/07/18 17:34 [From Humalog Mix] naproxen [From Naprosyn] Allergy Verified 07/17/17 14:46 Medications: Current Medications Acetaminophen (Tylenol) 650 mg PO Q4H PRN PRN Reason: Headache/Fever or Pain Last Admin: 03/22/18 21:00 Dose: 650 mg Hydrocodone Bitart/Acetaminophen (Milan 5/325) 1 tab PO Q4H PRN PRN Reason: Severe Pain (7-10) Last Admin: 03/21/18 20:40 Dose: 1 tab Al Hydroxide/Mg Hydroxide (Maalox) 15 ml PO Q4H PRN PRN Reason: Heartburn or Indigestion Artificial Tears (Tears Naturale) 0 drop EA EYE PRN PRN PRN Reason: Dry Eyes Aspirin (Aspirin Chewable) 81 mg PO DAILY [facility] Last Admin: 03/23/18 08:14 Dose: 81 mg Atorvastatin Calcium (Lipitor) 40 mg PO DAILY [facility] Last Admin: 03/23/18 08:16 Dose: 40 mg Bisacodyl (Dulcolax) 10 mg PO DAILYPRN PRN PRN Reason: Constipation Last Admin: 03/23/18 06:10 Dose: 10 mg Calcium Carbonate (Tums) 1,000 mg PO Q4H PRN PRN Reason: Heartburn or Indigestion Carvedilol (Coreg) 3.125 mg PO BID-[facility] Last Admin: 03/23/18 17:14 Dose: 3.125 mg Dextrose/Water (Dextrose 50%) 25 gm SLOW IVP PRN PRN PRN Reason: Hypoglycemia Last Admin: 03/16/18 08:01 Dose: 25 gm Docusate Sodium (Colace) 100 mg PO BIDPRN PRN PRN Reason: Constipation Epoetin Sarkis (Procrit) 10,000 units SC Q7D [facility] Last Admin: 03/20/18 14:12 Dose: 10,000 units Ferrous Sulfate (Feosol) 325 mg PO BID-[facility] Last Admin: 03/23/18 17:14 Dose: 325 mg Furosemide (Lasix) 80 mg PO 0900,1400 [facility] Gabapentin (Neurontin) 100 mg PO TID [facility] Last Admin: 03/23/18 20:43 Dose: 100 mg Glucagon (Glucagon) 1 mg IM PRN PRN PRN Reason: Hypoglycemia Guaifenesin (Robitussin Sf) 200 mg PO Q4H PRN PRN Reason: Cough Dextrose/Water (D5w) 1,000 mls @ 0 mls/hr IV .Q0M PRN PRN Reason: Hypoglycemia Insulin Glargine 10 units/ (Miscellaneous Medication) 0.1 mls @ 0 mls/hr SC [facility] Last Admin: 03/23/18 20:43 Dose: 0.1 mls Insulin Glargine 10 units/ (Miscellaneous Medication) 0.1 mls @ 0 mls/hr SC QAM [facility] Last Admin: 03/23/18 09:16 Dose: 0.1 mls Insulin Human Regular (Humulin R) 0 units SC .MODERATE SLIDING SC PRN PRN Reason: Moderate Correctional Scale Last Admin: 03/23/18 18:09 Dose: 2 units Isosorbide Mononitrate (Imdur Er) 60 mg PO DAILY [facility] Last Admin: 03/23/18 08:15 Dose: 60 mg Lactulose (Lactulose) 20 gm PO DAILYPRN PRN PRN Reason: Constipation Lidocaine (Lidoderm 5% Patch) 1 patch TD 2139 [facility] Last Admin: 03/24/18 02:41 Dose: Not Given Loperamide HCl (Imodium) 2 mg PO PRN PRN PRN Reason: Diarrhea/Loose Stools Metolazone (Zaroxolyn) 5 mg PO 0830 [facility] Mineral Oil/White Petrolatum (Eucerin Cream) 0 gm TOP BIDPRN PRN PRN Reason: Dry Skin Miscellaneous Medication (Lidocaine Patch Removal) 1 each TOP 1200 SANDI Last Admin: 03/23/18 12:06 Dose: Not Given Nicotine (Nicoderm Patch) 14 mg TOP Q24HR [facility] Last Admin: 03/23/18 15:05 Dose: 14 mg Nitroglycerin (Nitrostat) 0.4 mg SL Q5MIN PRN PRN Reason: Chest Pain Ondansetron HCl (Zofran Odt) 4 mg PO Q6H PRN PRN Reason: Nausea/Vomiting Ondansetron HCl (Zofran) 4 mg IVP Q6H PRN PRN Reason: Nausea/Vomiting Last Admin: 03/06/18 12:36 Dose: 4 mg Pantoprazole Sodium (Protonix) 40 mg PO DAILY [facility] Last Admin: 03/23/18 08:15 Dose: 40 mg Phenol (Chloraseptic Weinert 180 Ml Bot) 0 ml PO PRN PRN PRN Reason: Sore Throat Saccharomyces Boulardii (Florastor) 250 mg PO DAILY [facility] Last Admin: 03/23/18 08:15 Dose: 250 mg Sodium Chloride (Flush - Normal Saline) 10 ml IVF Q12HR [facility] Last Admin: 03/23/18 20:44 Dose: 10 ml Sodium Chloride (Flush - Normal Saline) 10 ml IVF PRN PRN PRN Reason: Saline Flush Last Admin: 03/23/18 05:42 Dose: 10 ml Sodium Chloride ([place] Nasal Weinert 0.65%) 0 ml EA NARE QIDPRN PRN PRN Reason: Nasal Congestion Ticagrelor (Brilinta) 90 mg PO BID [facility] Last Admin: 03/23/18 20:43 Dose: 90 mg
[2018-03-24] MEDS: Insulin Glargine 10 UNITS in Pre-Filled Syringe 1 EACH SC SCH (09:31)
[2018-03-24] MEDS: Gabapentin 100 MG CAP PO SCH ×2 (09:32→14:31)
[2018-03-24] MEDS: Atorvastatin Calcium 40 MG TAB PO SCH (09:32)
[2018-03-24] MEDS: Ferrous Sulfate 325 MG TAB PO SCH ×2 (09:32→16:12)
[2018-03-24] MEDS: Carvedilol 3.125 MG TAB PO SCH (09:33)
[2018-03-24] MEDS: TICAGRELOR 90 MG TABLET PO SCH ×2 (09:33→18:47)
[2018-03-24] MEDS: Furosemide 80 MG TAB PO SCH ×2 (09:33→14:31)
[2018-03-24] MEDS: Saccharomyces boulardii 250 MG CAP PO SCH (09:34)
[2018-03-24] MEDS ORDERED: Carvedilol 3.125 MG TAB PO SCH (12:40)
[2018-03-24 13:16] VITALS: BMI 30.7
--- NOTE | 2018-03-24 14:06 | PDOC.CTH ---
<Pattie Chapman - Last Filed: 03/24/18 14:02> Cardiology Progress Note - Subjective The pt seen and examined. No overnight events. No cardiac complaints. - Objective Vital Signs Temp Pulse Resp BP Pulse Ox 03/24/18 11:58 97.9 F 103 H 18 151/96 H 94 L 03/24/18 08:00 98.2 F 99 18 142/87 H 94 L 03/24/18 04:00 97.6 F 96 16 142/89 H 92 L Admit Weight 169 lb 1.6 oz Weight 190 lb 8 oz 03/23/18 03/24/18 03/25/18 06:59 06:59 06:59 Intake Total 1764 1220 Output Total 3000 2600 Balance -1236 -1380 - Physical Examination General/Neuro: alert & oriented x3 Neck: no JVD present Lungs: other: (diminished at bases) Heart: RRR Abdomen: soft Extremities: other: (3+ pitting edema) - Telemetry Telemetry Rhythm: SR 90s - Labs Result Diagrams: 03/23/18 05:13 03/24/18 05:56 Troponin/CKMB CK-MB (CK-2) 28.7 ng/mL (0-6.6) H* 03/05/18 18:07 Troponin I 162.370 ng/mL (< 0.028) H* 03/06/18 07:44 - Assessment/Plan 1. S/P Anterior [place] - s/p PCI- LAD on 03/12/18. S/p PCI-RCA on 03/19/18. On Coreg, ASA, Statin, and Brilinta. 2. JEAN on CKD4 - Improving. managed by professor of music. 3. ICMO - EF 25-30% on 03/20/18 - stable with RA. On BBlocker, Lasix PO, and Metolazone. She is getting a Life-Vest fitting now. She will need to be compliant with F/U. 4. HTN - stable 5. Chronic Anemia 6. Current smoker - smoking cessation education given to the pt. 7. History of non-compliance 8. hyperlipidemia - on Statin. MAR reviewed * D/c home with LifeVest on d/c. If she leave the hospital with AMA, the pt will f/u with Dr Robledo' office within 1 wk. * Instructed to complaint of her medication and tx plan. Review of Systems - Review of Systems Constitutional: reports: no symptoms reported EENTM: reports: no symptoms reported Respiratory: reports: no symptoms reported Cardiac (ROS): reports: no symptoms reported ABD/GI: reports: no symptoms reported : reports: no symptoms reported <Souleymane Robledo - Last Filed: 03/24/18 16:11> Cardiology Progress Note - Objective Vital Signs Temp Pulse Resp BP Pulse Ox 03/24/18 11:58 97.9 F 103 H 18 151/96 H 94 L 03/24/18 08:00 98.2 F 99 18 142/87 H 94 L Admit Weight 169 lb 1.6 oz Weight 190 lb 8 oz 03/23/18 03/24/18 03/25/18 06:59 06:59 06:59 Intake Total 1764 1220 Output Total 3000 2600 Balance -9546 -1780 - Labs Result Diagrams: 03/23/18 05:13 03/24/18 05:56 Troponin/CKMB CK-MB (CK-2) 28.7 ng/mL (0-6.6) H* 03/05/18 18:07 Troponin I 162.370 ng/mL (< 0.028) H* 03/06/18 07:44 - Assessment/Plan Pt. seen and eval. by me. She is feeling better and some improved diuresis with the Zaroxolyn. She is maintaining off the dobutamine. I will see her back i n the office in 1-2 weeks. prognosis is poor. Pt. is insistent she go home.
--- NOTE | 2018-03-24 14:15 | PRG ---
DATE OF SERVICE: 03/24/2018 SUBJECTIVE: This is a 52-year-old female being seen for acute kidney injury. The patient denies any nausea, vomiting, or chest pain. OBJECTIVE: GENERAL: Patient is awake, alert. VITAL SIGNS: Afebrile, pulse 103, breathing 16, blood pressure 142/87. GENERAL APPEARANCE AND MENTAL STATUS: Fair. HEAD/NECK: Normocephalic. Atraumatic. EYES: EOMI. No deformity. EARS: Clear. No ulcers. NOSE: Intact. No lesions. MOUTH: Clear. No discharge. THROAT: Clear. No exudate. LUNGS: Clear. No crackles. CARDIAC: S1, S2. No rub. ABDOMEN: Benign. BS+. GENITALIA/RECTUM: Loo absent. BACK/EXTREMITIES: Edema 0+ Ulcer- NEUROLOGICAL: Alert and motor intact. SKIN: Rash- Bruise- LYMPHATICS: Edema- Ulcer- LABORATORY: Hemoglobin 8.4 and creatinine 1.73. ASSESSMENT AND RECOMMENDATIONS: 1. Acute kidney injury with chronic kidney disease, stage 3, stable. 2. Hypertension, stable. 3. Anemia, stable. 4. Medication based on glomerular filtration rate are appropriate. She will follow up in 2 to 3 [facility].
[2018-03-24] MEDS: Lidocaine Patch Removal 1 EACH TOP SCH (14:31)
[2018-03-24] MEDS: Nicotine 14 MG PATCH TOP SCH (14:31)
--- NOTE | 2018-03-24 15:28 | DIS ---
DATE OF ADMISSION: 03/05/2018 DATE OF DISCHARGE: 03/24/2018 PRIMARY CARE PHYSICIAN: Doris Connor D.O. DISCHARGE DISPOSITION: Home. PRIMARY DISCHARGE DIAGNOSES: Acute on chronic renal failure; baseline chronic kidney disease, stage 3; non-ST elevation myocardial infarction on admission; acute systolic stage 3 congestive heart failu re, anasarca associated with nephrotic syndrome; status post coronary artery stent placement in LAD a nd RCA; on admission, diabetes ketoacidosis, type 2; hypoglycemia associated with diabetes type 2; ur inary tract infection. SECONDARY DISCHARGE DIAGNOSES: Chronic kidney disease stage 2, labile diabetes, hypertension, noncom pliance with the treatment, normocytic normochromic anemia, hypertension, dyslipidemia, peripheral ne uropathy, tobacco abuse disorder. PRIMARY PROCEDURE/OPERATION: Cardiac catheterization was performed by Dr. Robledo and stent was placed initially to LAD and subsequently to RCA. RADIOLOGICAL INVESTIGATION: Chest x-ray showed pulmonary vascular congestion. Echocardiography show ed EF 25%-30%. Chest x-ray repeat showed bilateral pleural effusion. SIGNIFICANT LABORATORY DATA: WBC 6.9, hemoglobin 8.4, platelet 507. Sodium 140, potassium 4.0, BUN 35, creatinine 1.73, calcium 8.6. Urinalysis suggestive of nephrotic syndrome. Urine drug screen ne gative. Blood culture negative. DISCHARGE MEDICATIONS: Aspirin 81 mg p.o. daily, Lipitor 40 mg p.o. daily, Coreg 6.25 mg p.o. b.i.d. , ferrous sulfate 325 mg p.o. b.i.d., Lasix 80 mg p.o. b.i.d., Neurontin 100 mg t.i.d., Humalog insul in as per sliding scale, Imdur 60 mg p.o. daily, Zaroxolyn 5 mg p.o. daily, Protonix 40 mg p.o. daily , Brilinta 90 mg p.o. b.i.d., Levemir insulin 10 unit b.i.d. CONTRAINDICATIONS: The patient is not on ESTHER inhibitor and ARB because of renal failure. The patien t is not on hydralazine because of her allergy. INPATIENT CONSULTANTS: Nephrology group was following while in hospital. [facility]. TEST RESULTS PENDING ON DISCHARGE: None. ALLERGIES: CAMPHOR, CIPROFLOXACIN, HYDRALAZINE, INSULIN LISPRO. DISCHARGE PLAN: Post hospital, the patient is discharged to home. Subsequently, patient will follow up with primary care physician, Nephrology, Cardiology as instructed. HOSPITAL COURSE: A 52-year-old female who was initially admitted in hospital by Dr. Marcus Carlton on 03/06/2018. Please see his H&P for further detail. The patient was admitted for DKA, which was t reated in ICU. At the same time, patient was suffering from acute systolic heart failure and acute n on-ST elevation [place]. The patient also had acute on chronic kidney failure. The patient was sick on a dmission. She was evaluated by Cardiology group Nephrology group and pulmonary group in CCU. Her DKA was resolved and subsequently patient was treated for non-ST elevation myocardial infarction with heparin drip and Lasix. The patient was not initially candidate for cardiac catheterization bec ause of her acute systolic congestive heart failure. Once acute systolic CHF was improved and renal function was a little bit improved at that point, Cardiology did cardiac catheterization and put a st ent in LAD and subsequently she had another cardiac catheterization and stent was placed in the RCA. During this hospital course, the patient had renal insufficiency. She had nephrotic syndrome. She r equired diuretic therapy. She required dobutamine drip with diuretic therapy. Despite that, her dolores ma was not responding well enough. At the time of discharge, patient still has edema and pleural effusion. She was given the high dose of Lasix and Zaroxolyn upon discharge. This patient is at high risk for recurrent admission. This p atient is making hurry to go home, but she is not 100% stable for discharge. Cardiology cleared her for discharge. Nephrology cleared her for discharge. LifeVest is also arranged. It is also doubtful that this patient will take medication after discharge, but I have provided exten sive education about fluid restriction, salt restriction, diabetes management, prevention of hypoglyc emia, avoidance of edema, skin care. All point of few, we have an extensive discussion with her jose ramon y and with her . At this point, patient is medically stable for discharge. We are sending all medication to her pharm acy. The patient will follow up with the above-mentioned marketing database consultant. Total time spent on discharge day 32 minutes.
[2018-03-24 16:39] VITALS: BP 144/87; TEMP 97.6
== END 2018-03-24 18:52 | disposition home or self-care (01) | DRG 248 ==
LOC: ERS 17:26 → CCU 22:58 → 2NO 03-10 20:17
PROVIDERS: ADMIT Internal Medicine; ATTEND Internal Medicine
PROC: 30253N1 (ICD-10-PCS; 2018-03-09)
PROC: 02703DZ Dilation of Coronary Artery, One Artery with Intraluminal Device, Percutaneous Approach (ICD-10-PCS; 2018-03-12)
PROC: 4A023N8 Measurement of Cardiac Sampling and Pressure, Bilateral, Percutaneous Approach (ICD-10-PCS; 2018-03-12)
PROC: B2111ZZ Fluoroscopy of Multiple Coronary Arteries using Low Osmolar Contrast (ICD-10-PCS; 2018-03-12)
PROC: 02703DZ Dilation of Coronary Artery, One Artery with Intraluminal Device, Percutaneous Approach (ICD-10-PCS; principal; 2018-03-19)
DX: I21.4 Non-ST elevation (NSTEMI) myocardial infarction (principal); E10.10 Type 1 diabetes mellitus with ketoacidosis without coma; E11.00 Type 2 diabetes mellitus with hyperosmolarity without nonketotic hyperglycemic-hyperosmolar coma (NKHHC); J18.9 Pneumonia, unspecified organism; I50.21 Acute systolic (congestive) heart failure; N17.0 Acute kidney failure with tubular necrosis; I13.0 Hypertensive heart and chronic kidney disease with heart failure and stage 1 through stage 4 chronic kidney disease, or unspecified chronic kidney disease; N17.9 Acute kidney failure, unspecified; E87.1 Hypo-osmolality and hyponatremia; E87.2 Acidosis; M62.82 Rhabdomyolysis; N39.0 Urinary tract infection, site not specified; D63.8 Anemia in other chronic diseases classified elsewhere; I69.998 Other sequelae following unspecified cerebrovascular disease; E11.22 Type 2 diabetes mellitus with diabetic chronic kidney disease; N18.3 Chronic kidney disease, stage 3 (moderate); E11.42 Type 2 diabetes mellitus with diabetic polyneuropathy; E78.5 Hyperlipidemia, unspecified; F17.210 Nicotine dependence, cigarettes, uncomplicated; E11.65 Type 2 diabetes mellitus with hyperglycemia; E86.0 Dehydration; E87.5 Hyperkalemia; D50.9 Iron deficiency anemia, unspecified; E87.6 Hypokalemia; F32.9 Major depressive disorder, single episode, unspecified; I25.10 Atherosclerotic heart disease of native coronary artery without angina pectoris; Z91.14 Patient's other noncompliance with medication regimen
CPT/HCPCS: 36415; 36416; 36430; 36556; 71045; 76770; 76942; 80048; 80053; 80061; 80076; 80306; 81001; 82010; 82330; 82553; 82570; 82728; 82803; 82947; 83540; 83550; 83605; 83735; 83880; 83930; 83970; 84100; 84156; 84443; 84484; 85014; 85018; 85025; 85049; 85347; 85610; 85730; 86850; 86900; 86901; 87040; 87086; 92928; 93005; 93010; 93306; 93454; 93458; 93798; 96365; 96366; 96368; 96375; 96376; A4216; C1725; C1769; C1876; C1887; G8978-GP-CK; G8979-GP-CI; J0692; J0696; J1250; J1644; J1815; J1940; J2001; J2060; J2405; J3370; J3480; J7050; J7070; P9016; P9047; Q4081; S0028

== ENCOUNTER 2018-05-22 15:05 | Inpatient (IN) | payer OTHER ==
[2018-05-22 16:22] LABS: Troponin I 0.159 ng/mL (< 0.028)
[2018-05-22 16:30] LABS: #Basophils 0.1 thou/uL (0.0-0.2); #Eosinphils 0.3 thou/uL (0.0-0.7); #Lymphocytes 1.9 thou/uL (1.20-3.40); #Monocytes 0.5 thou/uL (0.11-0.59); #Neutrophils 5.9 thou/uL (1.40-6.50); %Basophils 1.5 % (0.0-1.0); %Eosinophils 3.5 % (0.0-10.0); %Lymphocytes 21.6 % (21.0-51.0); %Monocytes 5.9 % (0.0-10.0); %Neutrophils 67.4 % (42.0-75.0); Hemoglobin 14.4 g/dL (12.0-16.0); Mean Corpuscular HGB CONC 30.7 g/dL (32.0-36.0); Mean Corpuscular Hemoglobin 27.3 pg (27.0-31.0); Mean Platelet Volume 8.3 fL (7.4-10.4); Platelet Count 307 thou/uL (130-400); RBC Distribution Width 13.4 % (11.5-14.5); Red Blood Cell (RBC) Count 5.29 mill/uL (4.20-5.40); White Blood Cell (WBC) Count 8.8 thou/uL (4.8-10.8)
[2018-05-22 16:40] LABS: CKMB 3.6 ng/mL (0-6.6)
[2018-05-22 16:41] LABS: ALT (SGPT) 7 U/L (8-55); AST (SGOT) 22 U/L (5-34); Acetaminophen Less than 6.0 mcg/mL (10.0-30.0); Albumin 2.3 g/dL (3.5-5.0); Alcohol Less than 10 mg/dL (Less than 10); Alkaline Phosphatase 153 U/L (40-150); Anion Gap 16 mmol/L (10-20); BUN (Urea Nitrogen) 20 mg/dL (9.8-20.1); Bilirubin, Total 0.3 mg/dL (0.2-1.2); CK (CPK) 65 U/L (29-168); Calc. Creatinine Clearance 0 mL/min (70-130); Calcium 8.1 mg/dL (7.8-10.44); Carbon Dioxide 24 mmol/L (22-29); Chloride 102 mmol/L (98-107); Estimated GFR-MDRD 30; Globulin 3.3 g/dL (2.4-3.5); Glucose 241 mg/dL (70-105); Lipase 25 U/L (8-78); Potassium 3.6 mmol/L (3.5-5.1); Protein, Total 5.6 g/dL (6.0-8.3); Salicylate Less than 8.0 mg/dL (15.0-30.0); Sodium 138 mmol/L (136-145)
[2018-05-22] MEDS ORDERED: Acetaminophen 650 MG Suppository PR PRN (18:20)
[2018-05-22] MEDS ORDERED: Senokot S 8.6-50 MG TAB PO PRN (18:20)
[2018-05-22] MEDS ORDERED: Acetaminophen 325 MG TAB PO PRN (18:20)
[2018-05-22] MEDS ORDERED: Dextrose 5% in Water 1,000 ML IV PRN (18:27)
[2018-05-22] MEDS ORDERED: MERREM IVPB PRN (18:28)
[2018-05-22] MEDS ORDERED: Labetalol HCl 100 MG/20 ML VIAL SLOW IVP PRN (19:05)
[2018-05-22] MEDS ORDERED: Sodium Chloride 0.9% 1,000 ML IV SCH (19:15)
[2018-05-22 19:37] LABS: Troponin I 0.193 ng/mL (< 0.028)
--- NOTE | 2018-05-22 20:01 | HP ---
PRIMARY CARE PHYSICIAN: Doris Connor DO CHIEF COMPLAINT: Nausea and vomiting. HISTORY OF PRESENT ILLNESS: Ms. Kaba is a pleasant 52-year-old lady who was seen at [facility] on 05/22/2018 following transfer from emergency room at [place]. She reports that she has been feeling sick over the last one week. She reports that she initially tejeda d nausea, then subsequently vomited once or twice. The vomiting has been getting worse. She has bee n unable to eat. She reports occasional cough, but denies any sputum. She denies any shortness of b reath. She denies any fevers. She reports that her chest is sore from vomiting. REVIEW OF SYSTEMS: All other systems reviewed and found to be negative. PAST MEDICAL HISTORY: Stroke with left-sided residual weakness, diabetes mellitus, hypertension, hyp erglycemia, myocardial infarction, renal failure, diabetes mellitus, neuropathy, and dyslipidemia. PAST SURGICAL HISTORY: Hysterectomy, , and cholecystectomy. FAMILY HISTORY: Significant for diabetes in multiple family members. SOCIAL HISTORY: The patient denies tobacco use, alcohol use, or recreational drug use. ALLERGIES: CIPROFLOXACIN, HYDRALAZINE, LISPRO INSULIN, and NAPROXEN. CURRENT MEDICATIONS: Gabapentin 400 mg daily, aspirin 81 mg daily, Procardia XL 30 mg 2 times a day, Levemir insulin 40 units daily. PHYSICAL EXAMINATION: GENERAL: Ms. Kaba is awake and alert, not in acute distress. VITAL SIGNS: Blood pressure is 163/107, pulse 93, respiratory rate 18, and oxygen saturation 98% on room air. She is afebrile. EYES: No scleral icterus. No conjunctival pallor. ENT: Dry mucosal membranes. No oropharyngeal erythema or exudates. NECK: Supple, nontender. Trachea is midline. RESPIRATORY: Accessory muscles of breathing are not active. Chest wall movements are symmetric bila terally. She has absent breath sounds at the left base. CARDIOVASCULAR: S1 and S2 are heard, regular. Peripheral pulses palpable. No carotid bruit, no per icardial rub. ABDOMEN: Soft, nontender. Bowel sounds heard. NEUROLOGIC: Cranial nerves II-XII intact. She has left-sided weakness. MUSCULOSKELETAL: Weakness in the left upper and lower extremities. SKIN: No rashes or subcutaneous nodules. LYMPHATIC: No cervical lymphadenopathy. Ms. Kaba's labs and investigations were reviewed. I reviewed her electrocardiogram, which shows nor mal sinus rhythm, no ST changes to suggest an acute coronary syndrome. I also reviewed her chest x-r ay, which shows left-sided pleural effusion and consolidation in the left lower lobe. She has normal white count, normal hemoglobin, normal platelet count, normal sodium, normal potassium, normal blood urea nitrogen. Elevated creatinine of 1.78, last known creatinine 2.77 in 03/2018. Normal AST, low ALT of 7, elevated alkaline phosphatase of 153. Indeterminate troponin I of 0.159. Elevated BNP of 7791, she had a BNP of 4336 in 02/2018. She has an albumin of 2.3 and a normal lipase. ASSESSMENT AND PLAN: Ms. Kaba is a pleasant 52-year-old lady, who was seen at [facility] on 05/22/2018. Her problem list includes: 1. Pneumonia: Ms. Kaba is presenting with pneumonia, community acquired or secondary to aspiration , given her history of vomiting. She will be admitted to the hospital for further management. She d oes report allergies to KEFLEX in the past in the form of swelling of skin; however, she has tolerate d Augmentin in the past. She also reports allergy to fluoroquinolones. Given her allergy profile, I will start her on meropenem. I did explain to her the risk of cross allergenicity. She is agreeabl e to trying meropenem. I will also continue azithromycin, which she has received in the emergency ro om at [place]. 2. Congestive heart failure: Clinically, she does not appear to be in heart failure at this time. On the other hand, she does appear dehydrated. We will provide gentle IV hydration and monitor oxyge nation. 3. Diabetes mellitus type 2: We will continue Lantus. The patient reports allergy to Humalog, alth ough it appears that she has received Humalog insulin in the past. For now, we will monitor Accu-[place] ks and we will start her on short-acting insulin after clarifying with her. 4. Nausea and vomiting: We will start the patient on p.r.n. Phenergan. 5. Chronic kidney disease, stage 4: Her renal function actually appears to be better than it was in the past. 6. Hypertension: We will resume home medications, monitor vital signs, and titrate antihypertensive s as needed. Many thanks for allowing me to participate in your patient's care. Please feel free to contact me wi th any questions or concerns. LEVEL OF RISK: High. LEVEL OF COMPLEXITY: High.
[2018-05-22] MEDS: MEROPENEM 1 GM/50 ML 1 GM in Premix Bag 1 BAG IVPB SCH (20:43)
[2018-05-22] MEDS: cloNIDine 0.1 MG TAB PO PRN (20:57)
[2018-05-22] MEDS: Heparin 5,000 UNITS/ML VIAL SC SCH (20:58)
[2018-05-22] MEDS ORDERED: MEROPENEM 1 GM/50 ML 1 GM in Premix Bag 1 BAG IVPB SCH (22:00)
[2018-05-22 22:44] LABS: Troponin I 0.154 ng/mL (< 0.028)
[2018-05-23] MEDS: Ondansetron PF 4 MG/2 ML Vial SLOW IVP PRN ×3 (01:47→11:17)
[2018-05-23 06:10] LABS: #Basophils 0.1 thou/uL (0.0-0.2); #Eosinphils 0.3 thou/uL (0.0-0.7); #Lymphocytes 1.9 thou/uL (1.20-3.40); #Monocytes 0.6 thou/uL (0.11-0.59); #Neutrophils 5.1 thou/uL (1.40-6.50); %Basophils 0.8 % (0.0-1.0); %Eosinophils 3.4 % (0.0-10.0); %Monocytes 7.1 % (0.0-10.0); %Neutrophils 64.7 % (42.0-75.0); Hemoglobin 12.8 g/dL (12.0-16.0); Mean Corpuscular HGB CONC 30.8 g/dL (32.0-36.0); Mean Corpuscular Hemoglobin 27.2 pg (27.0-31.0); Mean Corpuscular Volume 88.3 fL (78.0-98.0); Mean Platelet Volume 8.7 fL (7.4-10.4); Platelet Count 259 thou/uL (130-400); RBC Distribution Width 13.2 % (11.5-14.5); Red Blood Cell (RBC) Count 4.71 mill/uL (4.20-5.40); White Blood Cell (WBC) Count 7.8 thou/uL (4.8-10.8)
[2018-05-23 06:23] LABS: Anion Gap 20 mmol/L (10-20); BUN (Urea Nitrogen) 24 mg/dL (9.8-20.1); Calc. Creatinine Clearance 32 mL/min (70-130); Carbon Dioxide 20 mmol/L (22-29); Chloride 99 mmol/L (98-107); Estimated GFR-MDRD 25; Glucose 496 mg/dL (70-105); Potassium 3.6 mmol/L (3.5-5.1); Sodium 135 mmol/L (136-145)
[2018-05-23] MEDS ORDERED: Insulin Regular 300 UNITS/3 ML VIAL SC SCH (06:45)
[2018-05-23] MEDS: Sodium Chloride 0.9% 1,000 ML IV SCH ×2 (09:27→20:41)
[2018-05-23] MEDS: Heparin 5,000 UNITS/ML VIAL SC SCH ×3 (09:31→20:16)
[2018-05-23] MEDS: Insulin Glargine 20 UNITS in Pre-Filled Syringe 1 EACH SC SCH (09:31)
[2018-05-23] MEDS: MEROPENEM 1 GM/50 ML 1 GM in Premix Bag 1 BAG IVPB SCH ×2 (09:32→20:16)
[2018-05-23] MEDS: Pantoprazole 40 MG VIAL IVP SCH ×2 (09:39→20:16)
--- NOTE | 2018-05-23 10:56 | PRG ---
DATE OF SERVICE: 05/23/2018 SUBJECTIVE: The patient is seen and examined at the bedside. She vomited this morning. She ate goo d last night and did not have much of any stomach problem, but this morning, nausea and vomiting came back. She does not cough much. OBJECTIVE: VITAL SIGNS: Blood pressure is 161/91, pulse is 94, temperature 98.9, O2 saturation is 94% on room a ir. HEENT: Head is atraumatic, normocephalic. Eyes are PERRLA. Sclerae is nonicteric. Oral mucosa is moist. NECK: Supple. No lymphadenopathy. Thyroid is not palpable. LUNGS: Left base is dull to percussion and breath sounds are basically gone from this left area. No wheezing, no crackles. HEART: S1, S2 normal. No S3, no S4, no any murmur. ABDOMEN: Soft, but tender in the middle epigastric area. Mild guarding. No masses. EXTREMITIES: No clubbing, cyanosis or edema. NEUROLOGIC: She is alert and oriented x4. There is not any sensorimotor deficit present. Cranial n erves are intact. LABORATORY DATA: Showed normal CBC. Sodium of 135, potassium 3.6, chloride 99, CO2 22, BUN 24, crea tinine 2.07, glucose is ranging from 241-496. Troponin I was elevated at 0.159, 0.193 and 0.154 with BNP of 7791.7. IMPRESSION AND PLAN: 1. Left lower lobe pneumonia with pleural effusion. The patient is on meropenem. Pulmonary consult is pending. We will continue the current regimen with O2 and IV antibiotic. Also, she is continued on azithromycin. 2. Elevated BNP with some elevated troponins, which is probably demand ischemia. 3. Nausea and vomiting. The patient has a history of peptic ulcer disease. We will start her on Pr otonix IV q.12 hours. 4. Uncontrolled diabetes mellitus. We will start her on 20 of Lantus this morning and continue mode rate sliding scale. Also, we will give her a short-acting insulin to cover. 5. Chronic kidney disease. Her creatinine is up to more than 2. Dr. Singh, her active directory administrator is cons ulted. 6. Hypertension. We will reconcile her medicine and make some adjustments to have better control of her hypertension.
[2018-05-23] MEDS: Insulin Regular 300 UNITS/3 ML VIAL SC PRN ×2 (12:28→17:51)
[2018-05-23 13:53] VITALS: BMI 22.4
[2018-05-23] MEDS ORDERED: Azithromycin 500 MG in Sodium Chloride 0.9% 250 ML 250 ML IVPB SCH (14:00)
[2018-05-23] MEDS: cloNIDine 0.1 MG TAB PO PRN (15:00)
--- NOTE | 2018-05-23 15:04 | CON ---
DATE OF CONSULTATION: 05/23/2018 REASON FOR CONSULTATION: Elevated creatinine. HISTORY OF PRESENT ILLNESS: This is a very pleasant 52-year-old female who presented to the hospital with nausea and vomiting. The patient had a creatinine of 1.78 on admission, increased to 2.7. Her prior creatinine was 2.7 on April 27, and multiple episodes of acute kidney injury. She had a low baseline of 0.68. The patient denies headache, numbness, tingling or weakness, but has noted to hav e hyperglycemia. PAST MEDICAL HISTORY: Stroke, left-sided weakness, diabetes mellitus, hypertension, hyperlipidemia, myocardial infarction, renal failure, diabetes, and chronic kidney disease stage 4. PAST SURGICAL HISTORY: Hysterectomy, , cholecystectomy. FAMILY HISTORY: Negative for ESRD. . HOME MEDICATIONS: Reviewed. ALLERGIES: Reviewed. REVIEW OF SYSTEMS: Fifteen-point review of systems was performed and negative except all noted above . GENERAL: Weakness- HEAD: Headache- NECK: No swelling or lumps. NOSE: No epistaxis or discharge. EYES: No diplopia or pain. 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 NEUROPSYCHIATIC SYSTEMS: No suicidal ideation. No ideation. SKIN: Denies any rash or ulcer. CONSTITUTIONAL: No fever or chills. PHYSICAL EXAMINATION: GENERAL: The patient is awake, alert. VITAL SIGNS: Afebrile, pulse 88, breathing 16, blood pressure 158/83. GENERAL APPEARANCE AND MENTAL STATUS: Fair. HEAD/NECK: Normocephalic. Atraumatic. EYES: EOMI. No deformity. EARS: Clear. No ulcers. NOSE: Intact. No lesions. MOUTH: Clear. No discharge. THROAT: Clear. No exudate. LUNGS: Clear. No crackles. CARDIAC: S1, S2. No rub. ABDOMEN: Benign. BS+. GENITALIA/RECTUM: Loo absent. BACK/EXTREMITIES: Edema 0+ Ulcer- NEUROLOGICAL: Alert and motor intact. SKIN: Rash- Bruise- LYMPHATICS: Edema- Ulcer- LABORATORY DATA: Show creatinine 2.07, sodium 135. ASSESSMENT AND RECOMMENDATIONS: 1. Acute kidney injury with chronic kidney disease, most likely due to decreased arterial bloo d. 2. Chronic kidney disease stage 4. Continue hydration. 3. Metabolic acidosis, stable. No indication for dialysis. Continue hydration if the renal functio n does not improve, we will defer the diagnostic testing.
[2018-05-23] MEDS ORDERED: Metoclopramide HCl 10 MG/2 ML VIAL IVP SCH (16:00)
--- NOTE | 2018-05-23 18:45 | CON ---
DATE OF CONSULTATION: 05/23/2018 HISTORY OF PRESENT ILLNESS: Annalisa Kaba is a very pleasant 52-year-old female who was admitted with 1 week of nausea, vomiting, and loose bowel movements. She says she is only having bowel movements once or twice a day, but they are loose. The primary problem has been the nausea and the vomiting. She was vomiting this morning when the hospitalist saw her per my discussion with Dr. Laureano. She has had no fever in association with this. Chest radiograph was done showing bilateral effusions, larger on the left. I was consulted for possible pneumonia. PAST MEDICAL HISTORY: Remarkable for, 1. Diabetes. 2. She tells me she has a history of diabetic gastroparesis. 3. History of hypertension. 4. History of coronary disease. 5. History of renal disease. 6. History of peripheral neuropathy. 7. History of lipid disorder. 8. History of hospitalization in February. Her ejection fraction was 20%-25% at that time. 9. She has a history of coronary stenting in her LAD and her right coronary. 10. History of urinary tract infections. 11. History of anemia of chronic disease. 12. Cardiac catheterization leading to the stenting in last admission. FAMILY HISTORY: Negative for lung disease in early age. Positive for vascular disease and diabetes. SOCIAL HISTORY: She is a smoker, does drink. REVIEW OF SYSTEMS: Ten point review of systems completed, otherwise negative. PHYSICAL EXAMINATION: GENERAL: She is very pleasant and cooperative. She is afebrile. VITAL SIGNS: Blood pressure is modestly elevated at 175/96, respiratory rate 18 , O2 sats 93 on room air, heart rate 88. HEAD AND NECK: Pupils are equal. Sclerae are anicteric. NECK: Supple. LUNGS: Remarkable for decreased breath sounds, more on the left than on the right. HEART: Regular rhythm. S1 and S2 are normal. ABDOMEN: Soft and nontender. EXTREMITIES: Without clubbing, cyanosis, or edema. LABORATORY DATA: White count 7.8, hemoglobin 12.8, platelets 259. Sodium 135, potassium 3.6, chloride 99, bicarbonate 20, BUN 24, creatinine 2.07. Her creatinine in February was 1.73 prior to discharge when she went home from the hospital. Glucose is 496. IMPRESSION: Nausea, vomiting, and loose bowel movements; ? viral mediated versus gastroparesis versus ulcer disease. I have reviewed an old chest radiograph from February. Her radiograph is very similar. I do not believe that she has pneumonia. Her primary problem is nausea and vomiting, which has a fairly narrow differential. She has history of gastroparesis. She could have a viral illness or this could be recurrent ulcer disease. She has not thrown up any blood. RECOMMENDATIONS: 1. Add Reglan, it would be my first choice. 2. I do not recommend thoracentesis at this time. 3. I would simplify antibiotics and if her cultures are negative, then I would discontinue the meropenem as it will likely lead to aggravation of already loose stools. I will be happy to follow with the other physicians caring for her. She will need sliding scale insulin to control her diabetes. She probably needs to be on a liquid diet for now. This is a 50 minute consult, with greater than 50% of time spent on unit in coordination of care. MACY
[2018-05-23] MEDS ORDERED: Carvedilol 3.125 MG TAB PO SCH (20:00)
[2018-05-23] MEDS: TICAGRELOR 90 MG TABLET PO SCH (20:16)
[2018-05-23] MEDS: Metoclopramide HCl 10 MG/2 ML VIAL IVP SCH (20:17)
--- NOTE | 2018-05-23 21:03 | CON ---
DATE OF CONSULTATION: 05/23/2018 INDICATION FOR CONSULTATION: A 52-year-old female, who was admitted with nausea, vomiting, had high blood sugars. She does have a history of coronary artery disease and cardiomyopathy. She has underg one angioplasty and stent placement recently to the left anterior descending artery and the right cor onary artery. She was felt to be high risk for bypass surgery due to her severe cardiomyopathy, ejec tion fraction was 25% to 30%. She underwent stent placement without difficulties or complications. She has been wearing a LifeVest, but she stopped wearing it since she did not have any significant ce ll phone service and she is complaining of discomfort from the vest and she stopped wearing it despit e having a severe decrease in ejection fraction being told that she was a high risk for sudden cardia c . She has multiple other medical problems. She has a stage 4 kidney disease. She has chroni c anemia. She smoked in the past, but stopped smoking during her last hospitalization at least that is what she says. She is also scheduled to have an insulin pump placed within the next few weeks due to her diabetes. She was seen and admitted to the hospital due to her diabetes and the nausea and v omiting. Her blood sugar on admission was 241, but then increased within 12 hours up to 496. At thi s time, she denied any chest pain. She denies shortness of breath; however, chest x-ray does show a large left pleural effusion and her BNP was 7791. She was recently in the office and not complaining of any symptoms. She was seen in the office on 05/18/2018. On her original presentation to the [facility] before she was in respiratory failure and once this resolved, she underwent the angioplasty and stent placement. At this time, her cardiac enzymes were also indeterminate. They have remained on admission at 0.159, increased up to 0.193, it is now back down to 0.154 and this is not indicative of myocardial infarction, but most likely demand ischemia associated with her severe cardiomyopathy. S he does not take care of herself very well, but says that she has been watching her fluids carefully. At this time, it is best that we diurese the patient and monitor her blood sugars and get this unde r better control and she will also undergo a repeat echocardiogram in the next few months and if she continues to have severe decrease in left ventricular function, she would be a candidate for an AICD implant. PAST MEDICAL HISTORY: Significant for the coronary artery disease, angioplasty, stent placement in l eft anterior descending artery and also the right coronary artery. She has diabetes, hypercholestero lemia, and gastroesophageal reflux disease. She has suffered a myocardial infarction in the past. S he has a history of a cerebrovascular accident in the past. ALLERGIES: She is intolerant to LISINOPRIL, LATEX, and CEPHALEXIN. MEDICATIONS: Prior to admission should have included Coreg, furosemide, gabapentin, Humulin insulin, Humulin N insulin, iron, Levemir, pantoprazole, vitamin D3, aspirin 81 mg a day, isosorbide mononitr ate, atorvastatin, probiotics, and Brilinta 90 mg 1 b.i.d. She was not able to take the ESTHER inhibito rs due to the renal insufficiency. FAMILY HISTORY: Noncontributory. REVIEW OF SYSTEMS: CONSTITUTIONAL: She denied any significant weight gain. She does complain of some left knee pain af ter she was apparently fell that she has a small fracture there in the fibula. GASTROINTESTINAL: She has been complaining of nausea and vomiting. GENITOURINARY: She denies any hematuria or nocturia. EXTREMITIES: She denied any lower extremity edema; however, she does have some minimal edema around the ankle area bilaterally. NEUROLOGICAL: She denied any seizures or syncope. PHYSICAL EXAMINATION: GENERAL: Reveals an ill-appearing female. VITAL SIGNS: Her blood pressure is 122/82, early it was 175/90, respiratory rate 16. She is afebril e. Heart rate is 75 and shows a regular rhythm at this time. She appears to be sinus. HEENT: Shows the head to be normocephalic, atraumatic. I did not hear any significant bruits. LUNGS: Chest has decreased breath sounds in the left base, at least one-third of the way up, most li guevara due to her pleural effusion. CARDIOVASCULAR: Reveals a regular rate and rhythm at this time, did not hear any significant murmurs , heaves, thrills, bruits or rubs. ABDOMEN: Shows some obesity. Positive bowel sounds are present. Appears to have some possible asci cristin. EXTREMITIES: Show no clubbing or cyanosis. She has minimal ankle edema. NEUROLOGIC: She appears to be intact. LABORATORY DATA: Shows a potassium of 3.7, creatinine is 2.07 with a BUN of 24, blood sugar was 496, it is now decreased down to 192. Cardiac enzymes are as noted above. BNP is noted above for 7791. Hemoglobin is 12.8, platelet count 259,000, WBC of 7.8. IMPRESSION: 1. Diabetes with nausea and vomiting. She may have gastroparesis due to the diabetes. This will be dealt with by the primary care service. 2. Elevated cardiac enzymes, which are indeterminate at this time, it may be just due to demand isch emia associated with her nausea and vomiting. 3. History of cardiomyopathy. She has not been wearing her LifeVest. If the ejection fraction lilian ins on the low side, she may become a candidate for defibrillator if she remains compliant with her m edications. 4. History of tobacco abuse. She says she is no longer smoking. 5. Cardiomyopathy. As noted above, this is most likely ischemic. We will try and determine whether or not this may improve somewhat, so that she would not be a candidate for a LifeVest. This will be the best obviously scenario for her. 6. Hypercholesterolemia. We will see if she will continue to take her medications. I do not think she was taking her medications earlier, but she was on atorvastatin. We will see whether or not she continues to take this medication. 7. History of anemia. At this time, hemoglobin was 12.8 and appears to be stable. We would be more than happy to continue to follow the patient with you throughout her hospital course . We will try to continue to manage her medications.
[2018-05-24] MEDS: Metoclopramide HCl 10 MG/2 ML VIAL IVP SCH ×3 (01:59→20:20)
[2018-05-24] MEDS: Ondansetron PF 4 MG/2 ML Vial SLOW IVP PRN ×2 (04:09→10:06)
[2018-05-24] MEDS: Furosemide 40 MG/4 ML VIAL SLOW IVP SCH ×2 (05:34→14:43)
[2018-05-24 05:48] LABS: #Basophils 0.1 thou/uL (0.0-0.2); #Eosinphils 0.4 thou/uL (0.0-0.7); #Lymphocytes 1.3 thou/uL (1.20-3.40); #Monocytes 0.5 thou/uL (0.11-0.59); #Neutrophils 5.7 thou/uL (1.40-6.50); %Basophils 0.9 % (0.0-1.0); %Eosinophils 4.7 % (0.0-10.0); %Lymphocytes 16.6 % (21.0-51.0); %Monocytes 5.8 % (0.0-10.0); Hemoglobin 12.7 g/dL (12.0-16.0); Mean Corpuscular HGB CONC 31.9 g/dL (32.0-36.0); Mean Corpuscular Hemoglobin 27.6 pg (27.0-31.0); Mean Corpuscular Volume 86.4 fL (78.0-98.0); Mean Platelet Volume 8.5 fL (7.4-10.4); Platelet Count 293 thou/uL (130-400); RBC Distribution Width 13.1 % (11.5-14.5); Red Blood Cell (RBC) Count 4.59 mill/uL (4.20-5.40); White Blood Cell (WBC) Count 7.9 thou/uL (4.8-10.8)
[2018-05-24 06:06] LABS: Anion Gap 11 mmol/L (10-20); BUN (Urea Nitrogen) 29 mg/dL (9.8-20.1); Calc. Creatinine Clearance 30 mL/min (70-130); Carbon Dioxide 26 mmol/L (22-29); Chloride 103 mmol/L (98-107); Estimated GFR-MDRD 23; Glucose 106 mg/dL (70-105); Sodium 137 mmol/L (136-145)
[2018-05-24] MEDS: MEROPENEM 1 GM/50 ML 1 GM in Premix Bag 1 BAG IVPB SCH (10:05)
[2018-05-24] MEDS: Aspirin 81 mg Enteric Coated Tablet PO SCH (10:06)
[2018-05-24] MEDS: Pantoprazole 40 MG VIAL IVP SCH (10:06)
[2018-05-24] MEDS: TICAGRELOR 90 MG TABLET PO SCH ×2 (10:06→20:19)
[2018-05-24] MEDS: Sodium Chloride 0.9% 20 ML ONE ×3 (10:07→20:18)
[2018-05-24] MEDS: Insulin Glargine 20 UNITS in Pre-Filled Syringe 1 EACH SC SCH (10:10)
[2018-05-24] MEDS: Carvedilol 3.125 MG TAB PO SCH ×2 (10:11→16:18)
[2018-05-24] MEDS: Heparin 5,000 UNITS/ML VIAL SC SCH (10:21)
--- NOTE | 2018-05-24 13:54 | PRG ---
DATE OF SERVICE: 05/24/2018 SUBJECTIVE: This is a 52-year-old female being seen for acute kidney injury. The patient denies any nausea, vomiting or chest pain. OBJECTIVE: GENERAL: Patient is awake and alert. VITAL SIGNS: Afebrile, pulse 82, breathing 16, blood pressure 144/82. GENERAL APPEARANCE AND MENTAL STATUS: Fair. HEAD/NECK: Normocephalic. Atraumatic. EYES: EOMI. No deformity. EARS: Clear. No ulcers. NOSE: Intact. No lesions. MOUTH: Clear. No discharge. THROAT: Clear. No exudate. LUNGS: Clear. No crackles. CARDIAC: S1, S2. No rub. ABDOMEN: Benign. BS+. GENITALIA/RECTUM: Loo absent. BACK/EXTREMITIES: Edema 0+ Ulcer- NEUROLOGICAL: Alert and motor intact. SKIN: Rash- Bruise- LYMPHATICS: Edema- Ulcer- LABORATORY DATA: Show hemoglobin is 12.7, creatinine 2.2. ASSESSMENT AND RECOMMENDATIONS: 1. Acute kidney injury with chronic kidney disease. Continue hydration. Follow labs. 2. Hypertension, stable. 3. Anemia, stable. 4. Medication based on glomerular filtration rate are appropriate. No indication for dialysis at th is time.
[2018-05-24] MEDS: Dextrose 50% Abboject 50 ML SYRINGE SLOW IVP PRN ×2 (14:32→22:46)
[2018-05-24] MEDS: Potassium Chloride 20 MEQ TAB PO SCH ×2 (16:19→20:20)
[2018-05-24] MEDS: cloNIDine 0.1 MG TAB PO PRN ×2 (16:19→22:55)
--- NOTE | 2018-05-24 17:58 | PRG ---
DATE OF SERVICE: 05/24/2018 SUBJECTIVE: The patient seen and examined at bedside. She still has some nausea. She takes Zofran which takes care of her nausea. She does not have much of abdominal pain. She has [facility]. She denies any chest pain. OBJECTIVE: VITAL SIGNS: Blood pressure is 162/92, pulse is 82, temperature is 98.9, respirations 14, O2 saturat ions 93% on room air. HEENT: Head is atraumatic, normocephalic. Eyes are PERRLA. Sclerae is nonicteric. Oral mucosa is slightly dry. NECK: Supple, no lymphadenopathy. LUNGS: Left base, dull to percussion. Breath sounds significantly diminished at left base. HEART: S1, S2 normal, no S3, no S4. ABDOMEN: Soft, nontender, bowel sounds are present, no organomegaly. EXTREMITIES: No clubbing, cyanosis or edema. NEUROLOGIC: She is alert and oriented x4. There are not any motor deficits. LABORATORY DATA: Showed normal CBC today. Sodium of 137, potassium 3.0, chloride 103, CO2 26, BUN 2 9 and creatinine 2.22. Glycemia is ranging from 46-192. Microbiology: Two blood cultures from [facility] emergency room came back negative. IMPRESSION: 1. Questionable left lower lobe pneumonia. Definitely there is a pleural effusion, but pulmonologis t recommends to simplify the antibiotic regimen. The patient is switched to doxycycline 100 mg twice a day p.o. and she does not want to do thoracocentesis at this point. 2. Nausea and vomiting. The patient has a history of peptic ulcer disease, but she denies any abdom inal pain. We will switch her to p.o. Protonix 40 mg since she has gastroesophageal reflux disease. The patient was placed on metoclopramide IV for possible gastroparesis. 3. Type 1 diabetes mellitus, uncontrolled, labile. The patient is supposed to have insulin pump alcon devon next month by Dr. Roberts who is her metal baler in [facility]. I am also going to cutback on her dose of her long-acting insulin, Lantus 10 units, instead of 20 since he r regular dose is 8 at home and she is becoming hypoglycemic during this hospitalization. 4. Chronic kidney disease. Patient was placed on diuretics. We will continue per Dr. Singh's discre tion. We will monitor closely her creatinine level. Her creatinine is up to 2.22 today. 5. Hypokalemia. We will replace her with 40 mEq of potassium 2 doses today, then she will be on 40 once a day everyday since she is on diuretics. 6. Hypertension. 7. Ischemic cardiomyopathy. Most likely, the patient was seen by Dr. Robledo for Cardiology evaluation . Echocardiogram is done, but results are still pending. If her LVEF is low, she might be a good ca ndidate for defibrillator. 8. Hypercholesterolemia. 9. Metabolic acidosis. 10. Elevated cardiac enzymes, which is most likely demand ischemia associated with her current nause a and vomiting.
[2018-05-24] MEDS: Doxycycline 100 MG CAP PO SCH (20:19)
--- NOTE | 2018-05-24 21:05 | PRG ---
DATE OF SERVICE: 05/24/2018 SUBJECTIVE: She is feeling better. Cultures have been reviewed and no positive cultures. OBJECTIVE: VITAL SIGNS: Blood cultures from the are negative. LUNGS: She still has decreased breath sounds at both bases. HEART: Regular rhythm. ABDOMEN: Soft. She says she feels much better. Intake and output is not recorded. LABORATORY DATA: White count 7.9, hemoglobin 12.7, platelets 293,000. Sodium 137, potassium 3, chlo ride 103, bicarb 26, BUN 29, creatinine 2.22. IMPRESSION: Pleural effusion secondary to nephrotic syndrome and a cardiomyopathy. I do not believe that she has pneumonia. Her antibiotics can be simplified are discontinued if she remains stable th rough tomorrow in my opinion. Nausea and vomiting was the biggest problem. We added IV Reglan yesterday. She says she feels much better today, so maybe that this was just gastroparesis creating the majority of her problems, which led to her trip to the emergency room.
[2018-05-25 05:53] LABS: #Basophils 0.1 thou/uL (0.0-0.2); #Eosinphils 0.3 thou/uL (0.0-0.7); #Lymphocytes 1.7 thou/uL (1.20-3.40); #Monocytes 0.7 thou/uL (0.11-0.59); #Neutrophils 5.9 thou/uL (1.40-6.50); %Basophils 0.9 % (0.0-1.0); %Eosinophils 2.9 % (0.0-10.0); %Lymphocytes 19.9 % (21.0-51.0); %Monocytes 8.2 % (0.0-10.0); %Neutrophils 68.1 % (42.0-75.0); Hemoglobin 12.4 g/dL (12.0-16.0); Mean Corpuscular HGB CONC 31.5 g/dL (32.0-36.0); Mean Corpuscular Hemoglobin 27.3 pg (27.0-31.0); Mean Corpuscular Volume 86.8 fL (78.0-98.0); Platelet Count 237 thou/uL (130-400); RBC Distribution Width 13.2 % (11.5-14.5); Red Blood Cell (RBC) Count 4.56 mill/uL (4.20-5.40); White Blood Cell (WBC) Count 8.6 thou/uL (4.8-10.8)
[2018-05-25 06:11] LABS: Anion Gap 12 mmol/L (10-20); BUN (Urea Nitrogen) 30 mg/dL (9.8-20.1); Calc. Creatinine Clearance 32 mL/min (70-130); Carbon Dioxide 26 mmol/L (22-29); Chloride 102 mmol/L (98-107); Estimated GFR-MDRD 24; Glucose 189 mg/dL (70-105); Potassium 4.3 mmol/L (3.5-5.1); Sodium 136 mmol/L (136-145)
[2018-05-25] MEDS: Furosemide 40 MG/4 ML VIAL SLOW IVP SCH ×2 (06:21→13:37)
[2018-05-25] MEDS: Sodium Chloride 0.9% 20 ML ONE (06:22)
[2018-05-25] MEDS: Metoclopramide HCl 10 MG/2 ML VIAL IVP SCH ×3 (06:25→21:50)
[2018-05-25] MEDS: Ondansetron PF 4 MG/2 ML Vial SLOW IVP PRN ×2 (06:31→21:50)
[2018-05-25] MEDS ORDERED: Sodium Chloride 0.9% 10 ML ONE ×2 (08:28→12:41)
[2018-05-25] MEDS: cloNIDine 0.1 MG TAB PO PRN (08:32)
[2018-05-25] MEDS: Doxycycline 100 MG CAP PO SCH ×2 (08:33→21:49)
[2018-05-25] MEDS: Carvedilol 3.125 MG TAB PO SCH (08:33)
[2018-05-25] MEDS: TICAGRELOR 90 MG TABLET PO SCH ×2 (08:33→21:50)
[2018-05-25] MEDS: Aspirin 81 mg Enteric Coated Tablet PO SCH (08:33)
--- NOTE | 2018-05-25 08:58 | PDOC.CTH ---
<Pattie Chapman - Last Filed: 05/25/18 08:56> Cardiology Progress Note - Subjective The pt seen and examined. No overnight events. No cardiac complaints. - Objective Vital Signs Temp Pulse Resp BP BP BP BP 05/25/18 08:32 188/107 H 05/25/18 08:00 97.9 F 93 16 188/107 H 05/25/18 04:00 98.5 F 86 16 168/92 H 05/24/18 23:40 80 147/78 H 05/24/18 22:55 180/98 H 05/24/18 22:50 97.5 F L 87 20 180/78 H Pulse Ox 05/25/18 08:32 05/25/18 08:00 95 05/25/18 04:00 94 L 05/24/18 23:40 05/24/18 22:55 05/24/18 22:50 96 Admit Weight 139 lb Weight 149 lb 11.2 oz 05/24/18 05/25/18 05/26/18 06:59 06:59 06:59 Intake Total 400 600 Output Total 600 Balance 400 0 - Physical Examination General/Neuro: alert & oriented x3 Neck: no JVD present Lungs: other: (very diminished at bases) Heart: RRR Abdomen: soft Extremities: other: (2-3+ pitting BLE edema) - Telemetry Telemetry Rhythm: SR 90s - Labs Result Diagrams: 05/25/18 05:29 05/25/18 05:28 Troponin/CKMB CK-MB (CK-2) 3.6 ng/mL (0-6.6) 05/22/18 15:40 Troponin I 0.154 ng/mL (< 0.028) H 05/22/18 22:00 - Assessment/Plan 1. Gastroparesis - improving with Zofran, per the pt. 2. ICMO - Echo on 05/25/18 showed EF 25-30%, severe hypoknetic to akinetic anterior wall/septum, mild MR, mild AR, mild ID, mod TR, and mod bilat pleural effusion; On BBlocker, Lasix IV. Not on ESTHER/ARB due to Hx of CKD. 3. HTN - Increase Coreg from 3.125mg BID to 6.25mg BID; resume Imdur with the dosage of 60mg qd 4. Hx of AMI with PCI to LAD and RCA in 02/2018 - stable; on BBlocker, Brilinta , ASA, statin 5. CKD stage 4 - no changed 6. IDDM - managed by PCP 7. Chronic Anemia - stable Chronic anemia - stable MAR reviewed * Echo on 05/25/18 showed EF 25-30%, severe hypoknetic to akinetic anterior wall /septum, mild MR, mild AR, mild ID, mod TR, and mod bilat pleural effusion Review of Systems - Review of Systems Constitutional: reports: no symptoms reported EENTM: reports: no symptoms reported Respiratory: reports: no symptoms reported Cardiac (ROS): reports: no symptoms reported ABD/GI: reports: nausea : reports: no symptoms reported Musculoskeletal: reports: no symptoms reported Skin: reports: no symptoms reported <Souleymane Robledo - Last Filed: 05/25/18 17:29> Cardiology Progress Note - Objective Vital Signs Temp Pulse Resp BP BP BP Pulse Ox 05/25/18 16:00 150/78 H 05/25/18 12:00 98 F 95 16 178/110 H 95 05/25/18 10:11 188/107 H 05/25/18 08:32 188/107 H 05/25/18 08:00 97.9 F 93 16 188/107 H 95 Admit Weight 139 lb Weight 149 lb 11.2 oz 05/24/18 05/25/18 05/26/18 06:59 06:59 06:59 Intake Total 400 600 Output Total 600 1300 Balance 400 0 -1300 - Labs Result Diagrams: 05/25/18 05:29 05/25/18 05:28 Troponin/CKMB CK-MB (CK-2) 3.6 ng/mL (0-6.6) 05/22/18 15:40 Troponin I 0.154 ng/mL (< 0.028) H 05/22/18 22:00 - Assessment/Plan Pt. seen and eval. she bacame more SOB earlier today and then had a thorocentesis. She is breathing better now. Chest: left base clear. Right base decrased BS. RRR. Otherwise I agree with the A/P by the [employer] SAWYER. EF still indicates an EF 25-30%.. Poor prognosis.
[2018-05-25] MEDS ORDERED: Insulin Glargine 10 UNITS in Pre-Filled Syringe 1 EACH SC SCH (09:00)
[2018-05-25] MEDS ORDERED: Carvedilol 3.125 MG TAB PO SCH (09:30)
--- NOTE | 2018-05-25 09:48 | PDOC.PN ---
- Subjective Encounter Start Date: 05/25/18 Encounter Start Time: 09:47 Ms. Kaba was seen today in follow-up She says she is feeling short of breath. She denies any chest pain. - Objective MAR Reviewed: Yes Vital Signs & Weight: Vital Signs (12 hours) Temp Pulse Resp BP BP BP BP 05/25/18 08:32 188/107 H 05/25/18 08:00 97.9 F 93 16 188/107 H 05/25/18 04:00 98.5 F 86 16 168/92 H 05/24/18 23:40 80 147/78 H 05/24/18 22:55 180/98 H 05/24/18 22:50 97.5 F L 87 20 180/78 H Pulse Ox 05/25/18 08:32 05/25/18 08:00 95 05/25/18 04:00 94 L 05/24/18 23:40 05/24/18 22:55 05/24/18 22:50 96 Weight Admit Weight 139 lb Weight 149 lb 11.2 oz I&O: 05/24/18 05/25/18 05/26/18 06:59 06:59 06:59 Intake Total 400 600 Output Total 600 Balance 400 0 Result Diagrams: 05/25/18 05:29 05/25/18 05:28 Additional Labs: Accuchecks 05/25/18 05/25/18 05/25/18 05:01 03:22 02:02 POC Glucose 172 H 151 H 177 H 05/25/18 05/25/18 05/24/18 01:08 00:19 23:44 POC Glucose 126 H 131 H 141 H 05/24/18 05/24/18 05/24/18 23:18 22:42 21:50 POC Glucose 149 H 55 L* 61 L 05/24/18 05/24/18 05/24/18 20:35 16:41 15:08 POC Glucose 47 L* 93 115 H 05/24/18 05/24/18 14:30 10:37 POC Glucose 42 L* 111 H Phys Exam - Physical Examination HEENT: PERRLA decreased breath sounds at both bases Cardiovascular: RRR, no significant murmur, no rub Gastrointestinal: soft, non-tender, no distention, positive bowel sounds Musculoskeletal: no edema, pulses present + mild cyanosis of both feet Dx/Plan (1) Acute respiratory failure Code(s): J96.00 - ACUTE RESPIRATORY FAILURE, UNSP W HYPOXIA OR HYPERCAPNIA Status: Acute (2) Pleural effusion Code(s): J90 - PLEURAL EFFUSION, NOT ELSEWHERE CLASSIFIED Status: Acute (3) HTN (hypertension) Code(s): I10 - ESSENTIAL (PRIMARY) HYPERTENSION Status: Chronic (4) 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
[2018-05-25] MEDS ORDERED: Amlodipine 5 MG TAB PO SCH (10:15)
[2018-05-25] MEDS ORDERED: Lidocaine 1% (PF) 30 ML VIAL ONE (10:22)
--- NOTE | 2018-05-25 10:37 | PRG ---
DATE OF SERVICE: 05/25/2018 SUBJECTIVE: Patient was seen and examined at bedside and overnight events noted. Patient denies any shortness of breath or chest pain or palpitation. No history of nausea or vomiting or diarrhea or f ever or chills or cramps. OBJECTIVE: GENERAL: Well-built, female in no apparent distress. VITAL SIGNS: Temperature 98.7, pulse 93, respiratory 16, blood pressure 188/107. HEENT: Atraumatic, normocephalic, oral mucosa is moist. NECK: Supple. CARDIOVASCULAR: S1, S2 heard, rate and rhythm regular. RESPIRATORY: Clear to auscultation. GASTROINTESTINAL: Abdomen is soft. MUSCULOSKELETAL: No tenderness, no edema. DERMATOLOGIC: No skin rash. NEUROLOGIC: Alert and awake and oriented x3. No focal neurologic deficits. Moving all the extremit ies. PSYCHIATRIC: Mood and affect normal. LABORATORY DATA: Potassium is 4.3, BUN is 30, creatinine is 2.1. ASSESSMENT AND PLAN: 1. Acute kidney injury on chronic kidney disease stage 4, renal function is stable. 2. Hypertension. 3. Anemia. 4. Edema. 5. We will continue to monitor. Avoid nephrotoxins.
--- NOTE | 2018-05-25 10:43 | PRG ---
DATE OF SERVICE: 05/25/2018 When I came into the room there were several nurses standing at the bedside. The patient was complai shauna of left-sided pain and severe shortness of breath. Of note, she has a fairly sizable left-sided pleural effusion which has not been treated yet. PHYSICAL EXAMINATION: VITAL SIGNS: On exam, temperature is 97.9, pulse 93, blood pressure 188/107, O2 sat 95% on room air. HEENT: Unremarkable. NECK: No JVD. LUNGS: Almost absent breath sounds on the left. She has good air movement on the right. CARDIAC: S1 and S2 regular. ABDOMEN: Soft. EXTREMITIES: No edema. LABORATORY DATA: White blood cell count 8.6, hematocrit 39.5, platelet count 237. Sodium 136, potas sium 4.3, BUN 30, creatinine 2.1, glucose 189. ASSESSMENT: 1. Bilateral effusions, left greater than right. 2. Respiratory distress. 3. Diabetes mellitus. 4. Cardiomyopathy. PLAN: Diagnostic and therapeutic left-sided thoracentesis. I went over the risks of the procedure w ith the patient including bleeding, infection, accidental lung puncture. The patient is agreeable to proceed.
[2018-05-25] MEDS ORDERED: HYDROcodone/Acetaminophen 5/325 mg Tablet PO PRN (11:07)
[2018-05-25 11:14] LABS: Fluid, Triglycerides 20 mg/dL (Not Available); Pleural Fluid, Amylase 34 U/L (Not Available); Pleural Fluid, Glucose 237 mg/dL; Pleural Fluid, LDH 50 U/L (Not Available); Pleural Fluid, Protein Less than 1.0 g/dL
[2018-05-25] MEDS: HYDROcodone/Acetaminophen 10/325 mg Tablet PO PRN ×3 (11:19→21:50)
[2018-05-25 11:21] LABS: BF Color Yellow; BF RBC Count - Manual 363 /cumm; BF WBC/Nonhematics Ct. - Manua 78 /cumm; Body Fluid Source THORACENTESIS FLD; Clarity Hazy (Clear); Tube # 2
[2018-05-25] MEDS: Insulin Regular 300 UNITS/3 ML VIAL SC PRN ×2 (11:35→19:15)
--- NOTE | 2018-05-25 11:37 | OP ---
DATE OF PROCEDURE: 05/25/2018 PROCEDURE: Left thoracentesis. PREOPERATIVE DIAGNOSIS: Pleural effusion. POSTOPERATIVE DIAGNOSIS: Pleural effusion. ANESTHESIA: 1% lidocaine without epinephrine. DESCRIPTION OF PROCEDURE: Informed consent was obtained from the patient and I explained the risks i nvolved including bleeding, infection and accidental lung puncture. She agreed to proceed. The patient was placed in the sitting position. The left posterior hemothorax was cleansed with chlo rhexidine at the 5th-6th interspace posteriorly at the midscapular line. Using 1% lidocaine, the int erspace was anesthetized. A Xmnz-X-Kcacrcjh catheter was inserted in the pleural space and approxima tely 1300 mL of clear yellow fluid was removed and sent for appropriate studies. The procedure was t olerated well. Postoperative x-ray is pending.
[2018-05-25 12:20] LABS: BF Segmented Neutrophils 5 %; Cell Count Non Hematic 79 %; Lymphocytes 16 %
--- NOTE | 2018-05-25 15:22 | RAD ---
FRONTAL VIEW CHEST: Comparison: 05-22-18 Indication: Pleural effusion. Shortness of breath. FINDINGS: Progressive consolidation at the right lower lung zone is seen. There is bilateral pleural fluid. Per sistent left basilar opacity remains. There is prominence of the bilateral perihilar vasculature and cardiac silhouette. IMPRESSION: Bibasilar opacities, indicating bilateral pneumonia with pleural fluid. Follow up to resolution is re commended. POS: [facility]
[2018-05-25] MEDS: Carvedilol 6.25 MG TAB PO SCH (16:00)
[2018-05-26] MEDS: Furosemide 40 MG/4 ML VIAL SLOW IVP SCH ×2 (06:32→13:44)
[2018-05-26] MEDS: Metoclopramide HCl 10 MG/2 ML VIAL IVP SCH ×2 (06:32→13:44)
[2018-05-26] MEDS ORDERED: Amlodipine 5 MG TAB PO SCH (09:00)
[2018-05-26] MEDS ORDERED: Sodium Chloride 0.9% 10 ML ONE (09:17)
--- NOTE | 2018-05-26 09:32 | PRG ---
DATE OF SERVICE: 05/26/2018 The patient is doing better in terms of her breathing, has no complaints. PHYSICAL EXAMINATION: VITAL SIGNS: Temperature 97.7, pulse 88, respirations 18, O2 sat 90% on room air, blood pressure 171 /91. HEENT: Unremarkable. NECK: No JVD. CHEST: Clear bilaterally. CARDIAC: S1, S2 regular. ABDOMEN: Soft. EXTREMITIES: No edema. Pleural fluid was transudative. ASSESSMENT: Bilateral pleural effusions, left greater than right secondary to cardiomyopathy and con gestive heart failure. RECOMMENDATIONS: From a pulmonary standpoint, she is stable for discharge. I told the patient that repeated thoracentesis is not the treatment for this. She needs to be on strict fluid precautions. S he needs to weigh herself daily. She needs to be strict about her diuretic use.
--- NOTE | 2018-05-26 09:38 | PDOC.CTH ---
<Pattie Chapman - Last Filed: 05/26/18 09:39> Cardiology Progress Note - Subjective The pt seen and examined. No overnight events. No cardiac complaints. She denied N&V this AM. She still have SOB, especially when she talks. However, she stated she can breath much better today. - Objective Vital Signs Temp Pulse Resp BP BP Pulse Ox 05/26/18 07:51 97.7 F 88 18 171/91 H 98 05/26/18 04:00 98.3 F 76 16 127/74 92 L Admit Weight 139 lb Weight 148 lb 9.6 oz 05/25/18 05/26/18 05/27/18 06:59 06:59 06:59 Intake Total 600 740 480 Output Total 600 2700 700 Balance 0 -1960 -220 - Physical Examination General/Neuro: alert & oriented x3 Neck: no JVD present Lungs: other: (diminished at bases) Heart: RRR Abdomen: soft Extremities: other: (2+ pitting BLE edema) - Telemetry Telemetry Rhythm: SR - Labs Result Diagrams: 05/25/18 05:29 05/25/18 05:28 Troponin/CKMB CK-MB (CK-2) 3.6 ng/mL (0-6.6) 05/22/18 15:40 Troponin I 0.154 ng/mL (< 0.028) H 05/22/18 22:00 - Assessment/Plan 1. Gastroparesis - improved; able to eat a big breakfast this AM. 2. ICMO - breathing better this am after s/p Lt thorocentesis on 05/25/18. Echo on 05/25/18 showed EF 25-30%, severe hypoknetic to akinetic anterior wall/ septum, mild MR, mild AR, mild NV, mod TR, and mod bilat pleural effusion; On BBlocker, Lasix IV. Not on ESTHER/ARB due to Hx of CKD. 3. HTN - stable 4. Hx of AMI with PCI to LAD and RCA in 02/2018 - stable; on BBlocker, Brilinta , ASA, statin 5. CKD stage 4 - slightly improving 6. IDDM - managed by PCP 7. Chronic Anemia - stable Chronic anemia - stable MAR reviewed * Echo on 05/25/18 showed EF 25-30%, severe hypoknetic to akinetic anterior wall /septum, mild MR, mild AR, mild NV, mod TR, and mod bilat pleural effusion * From Cardiac standopoint, the pt is stable to d/c home. The pt will f/u with Dr Robledo' office within 10 days. Review of Systems - Review of Systems Constitutional: reports: no symptoms reported EENTM: reports: no symptoms reported Respiratory: reports: no symptoms reported Cardiac (ROS): reports: no symptoms reported ABD/GI: reports: no symptoms reported : reports: no symptoms reported Musculoskeletal: reports: no symptoms reported <Souleymane Robledo - Last Filed: 05/26/18 16:25> Cardiology Progress Note - Objective Vital Signs Temp Pulse Resp BP BP Pulse Ox 05/26/18 12:46 98.3 F 82 18 132/69 96 05/26/18 07:51 97.7 F 88 18 171/91 H 98 Admit Weight 139 lb Weight 148 lb 9.6 oz 05/25/18 05/26/18 05/27/18 06:59 06:59 06:59 Intake Total 600 740 480 Output Total 600 2700 700 Balance 0 -1960 -220 - Labs Result Diagrams: 05/25/18 05:29 05/25/18 05:28 Troponin/CKMB CK-MB (CK-2) 3.6 ng/mL (0-6.6) 05/22/18 15:40 Troponin I 0.154 ng/mL (< 0.028) H 05/22/18 22:00 - Assessment/Plan pt.seen and eval.by me.I agreewith the A/Pby the [employer].She denies any SOB today.RRR ,mild tachycardia.
--- NOTE | 2018-05-26 09:52 | PRG ---
DATE OF SERVICE: 05/26/2018 SUBJECTIVE: Patient was seen and examined at bedside and overnight events noted. Patient denies any shortness of breath or chest pain or palpitation. No history of nausea or vomitin g or diarrhea or fever or chills or cramps. OBJECTIVE: GENERAL: This is a well-built female, in no apparent distress. VITAL SIGNS: Temperature 98.3, pulse , respiratory rate 16, blood pressure 127/74. HEENT: Atraumatic, normocephalic. Oral mucosa is moist. NECK: Supple. CARDIOVASCULAR: S1 and S2 heard. Rate and rhythm regular. RESPIRATORY: Clear to auscultation. GASTROINTESTINAL: Abdomen is soft. MUSCULOSKELETAL: No tenderness. No edema. DERMATOLOGIC: No skin rash. NEUROLOGIC: Alert and awake and oriented x3. No focal neurologic deficits. Moving all the extremit ies. PSYCHIATRIC: Mood and affect normal. LABORATORY DATA: Not done today. ASSESSMENT AND PLAN: 1. Acute kidney injury on chronic kidney stage IV. Monitor labs. 2. Hypertension. Monitor blood pressure. 3. Anemia. Monitor hemoglobin. 4. Edema. We will follow. 5. We will continue to monitor.
[2018-05-26] MEDS: Ondansetron PF 4 MG/2 ML Vial SLOW IVP PRN (10:17)
[2018-05-26] MEDS: HYDROcodone/Acetaminophen 10/325 mg Tablet PO PRN (10:17)
[2018-05-26] MEDS: Doxycycline 100 MG CAP PO SCH (10:17)
[2018-05-26] MEDS: Aspirin 81 mg Enteric Coated Tablet PO SCH (10:19)
[2018-05-26] MEDS: TICAGRELOR 90 MG TABLET PO SCH (10:19)
[2018-05-26] MEDS: Carvedilol 6.25 MG TAB PO SCH ×2 (10:19→16:23)
[2018-05-26] MEDS: Insulin Regular 300 UNITS/3 ML VIAL SC PRN ×3 (10:20→16:17)
--- NOTE | 2018-05-26 10:27 | PDOC.PN ---
- Subjective Encounter Start Date: 05/26/18 Encounter Start Time: 10:26 Ms. Kaba was seen today in follow-up of left pleural effussion. She does not have any complaints this morning. She denies chest pain of shortness of breath. - Objective MAR Reviewed: Yes Vital Signs & Weight: Vital Signs (12 hours) Temp Pulse Resp BP BP Pulse Ox 05/26/18 07:51 97.7 F 88 18 171/91 H 98 05/26/18 04:00 98.3 F 76 16 127/74 92 L Weight Admit Weight 139 lb Weight 148 lb 9.6 oz I&O: 05/25/18 05/26/18 05/27/18 06:59 06:59 06:59 Intake Total 600 740 480 Output Total 600 2700 700 Balance 0 -1960 -220 Result Diagrams: 05/25/18 05:29 05/25/18 05:28 Additional Labs: Accuchecks 05/26/18 05/25/18 05/25/18 05:59 20:33 16:54 POC Glucose 297 H 204 H 312 H 05/25/18 05/25/18 11:14 05:52 POC Glucose 372 H 196 H Phys Exam - Physical Examination HEENT: PERRLA Respiratory: no wheezing, no rales, no rhonchi, clear to auscultation bilateral Cardiovascular: RRR, no significant murmur, no rub Gastrointestinal: soft, non-tender, no distention, positive bowel sounds Musculoskeletal: edema present 1+ pedal edema bilaterally Neurological: non-focal, moves all 4 limbs Dx/Plan (1) Acute respiratory failure Code(s): J96.00 - ACUTE RESPIRATORY FAILURE, UNSP W HYPOXIA OR HYPERCAPNIA Status: Acute (2) Pleural effusion Code(s): J90 - PLEURAL EFFUSION, NOT ELSEWHERE CLASSIFIED Status: Acute (3) HTN (hypertension) Code(s): I10 - ESSENTIAL (PRIMARY) HYPERTENSION Status: Chronic (4) Nephrotic syndrome due to diabetes mellitus Code(s): E11.21 - TYPE 2 DIABETES MELLITUS WITH DIABETIC NEPHROPATHY Status: Chronic (5) Type II diabetes mellitus Status: Chronic (6) Acute on chronic systolic heart failure, NYHA class 2 Code(s): I50.23 - ACUTE ON CHRONIC SYSTOLIC (CONGESTIVE) HEART FAILURE Status : Acute - Plan * Left Pleural effusion- improved after thorocentesis- she is breathing better on room air. * Pneumonia- continue Doxycycline * Acute on chronic systolic heart failure- compensated * DM- blood glucose is elevated - will re-start her insulin * HTN- blood pressure is a bit labile- will monitor.
[2018-05-26] MEDS ORDERED: Insulin Glargine 8 UNITS in Pre-Filled Syringe 1 EACH SC SCH ×2 (10:30→21:00)
--- NOTE | 2018-05-26 11:39 | DIS ---
DATE OF ADMISSION: 05/22/2018 DATE OF DISCHARGE: 05/26/2018 PRIMARY CARE PHYSICIAN: Dr. Doris Connor. DISCHARGE DISPOSITION: Home. PRIMARY DISCHARGE DIAGNOSES: 1. Left pleural effusion. 2. Acute respiratory failure with hypoxemia secondary to #1. 3. Acute on chronic systolic heart failure exacerbation. Her EF is 25%-30% and this is [place] [employer] class II at baseline. 4. Diabetes mellitus, type 2. 5. Hypertension. DISCHARGE MEDICATIONS: Include Lasix 80 mg twice daily, Brilinta 90 mg twice a day, Protonix 40 mg d aily, iron sulfate 325 mg twice a day, doxycycline 100 mg twice daily, carvedilol 6.25 mg twice a day , Lipitor 40 mg daily, Norvasc 5 mg daily, Imdur 120 mg daily, regular insulin on a sliding scale, La ntus insulin 8 units subcu twice a day, Neurontin 100 mg twice a day, vitamin D3 1000 units daily, as pirin 81 mg daily. PROCEDURES DONE DURING ADMISSION: The patient had an echocardiogram in which the ejection fraction w as estimated at 25%-30%. The anterior wall and septum was severely hypokinetic to akinetic. ALLERGIES: To CAMPHOR, CEPHALEXIN, CIPRO, HYDRALAZINE, LISPRO INSULIN, LATEX, LISINOPRIL and HYDRALA ZINE. CODE STATUS: FULL CODE. HOSPITAL COURSE: Ms. Kaba is a pleasant 52-year-old female that has a history of chronic systolic h eart failure as well as hypertension and diabetes mellitus. She also has nephrotic syndrome secondar y to diabetes mellitus. She presented with complaints of nausea and vomiting and inability to eat as well as increasing cough and shortness of breath. She was found to have mild or probable gastropare sis secondary to diabetes and this resolved with Reglan. She was also found to have a fairly large l eft pleural effusion. This is thought to be secondary to both heart failure as well as nephrotic syn drome from diabetes mellitus. She had a thoracentesis performed with removal of 1.3 liters of fluid from the lungs. Following this, she was feeling much improved and she was also evaluated by Cardiolo gy as well as Pulmonology. Amlodipine was added to her medication regimen for better blood pressure control. She was counseled on being compliant with her diet and fluid restriction and after being cl inically stabilized, she was able to be discharged home. She was on doxycycline orally for presumed pulmonary infection, which may have contributed to the pleural effusion. She is to follow up with he r primary care physician in approximately 1-2 weeks.
[2018-05-26 16:26] VITALS: BP 148/75
[2018-05-26 17:06] VITALS: TEMP 98
--- NOTE | 2018-05-26 20:38 | EKG ---
Test Reason : Blood Pressure : / mmHG Vent. Rate : 088 BPM Atrial Rate : 088 BPM P-R Int : 140 ms QRS Dur : 080 ms QT Int : 388 ms P-R-T Axes : 077 -19 103 degrees QTc Int : 469 ms Normal sinus rhythm Possible Left atrial enlargement Low voltage QRS Possible Anterolateral infarct (cited on or before 05-MAR-2018) Abnormal ECG When compared with ECG of 22-MAY-2018 15:14, (Unconfirmed) QT has shortened Confirmed by ROSAMARIA MEDINA (2) on 05/26/2018 8:38:11 PM Referred By: LORENZO Confirmed By:ROSAMARIA MEDINA
[2018-05-27] MEDS ORDERED: Atorvastatin Calcium 40 MG TAB PO SCH (09:00)
== END 2018-05-26 17:19 | disposition home or self-care (01) | DRG 698 ==
LOC: ERS 15:05 → 2NO 15:40
PROVIDERS: ADMIT Internal Medicine; ATTEND Internal Medicine
PROC: 0W9B3ZX Drainage of Left Pleural Cavity, Percutaneous Approach, Diagnostic (ICD-10-PCS; principal; 2018-05-25)
DX: E11.21 Type 2 diabetes mellitus with diabetic nephropathy (principal); J96.01 Acute respiratory failure with hypoxia; I50.23 Acute on chronic systolic (congestive) heart failure; I13.0 Hypertensive heart and chronic kidney disease with heart failure and stage 1 through stage 4 chronic kidney disease, or unspecified chronic kidney disease; J91.8 Pleural effusion in other conditions classified elsewhere; I69.354 Hemiplegia and hemiparesis following cerebral infarction affecting left non-dominant side; I24.8 Other forms of acute ischemic heart disease; E87.2 Acidosis; I43 Cardiomyopathy in diseases classified elsewhere; N18.4 Chronic kidney disease, stage 4 (severe); N17.9 Acute kidney failure, unspecified; E11.43 Type 2 diabetes mellitus with diabetic autonomic (poly)neuropathy; K31.84 Gastroparesis; Z79.4 Long term (current) use of insulin; Z79.01 Long term (current) use of anticoagulants; Z79.899 Other long term (current) drug therapy; Z88.8 Allergy status to other drugs, medicaments and biological substances; Z88.1 Allergy status to other antibiotic agents; Z91.040 Latex allergy status; I25.2 Old myocardial infarction; E78.5 Hyperlipidemia, unspecified; E11.65 Type 2 diabetes mellitus with hyperglycemia; Z87.11 Personal history of peptic ulcer disease; Z95.5 Presence of coronary angioplasty implant and graft; E11.22 Type 2 diabetes mellitus with diabetic chronic kidney disease; Z91.19 Patient's noncompliance with other medical treatment and regimen; E78.00 Pure hypercholesterolemia, unspecified; K21.9 Gastro-esophageal reflux disease without esophagitis; Z79.82 Long term (current) use of aspirin; Z87.891 Personal history of nicotine dependence; D64.9 Anemia, unspecified
CPT/HCPCS: 36415; 36416; 71045; 80048; 80307; 82150; 82945; 83615; 83690; 83880; 83986; 84157; 84478; 85025; 85060; 87070; 87116; 87205; 87206; 88112; 88305; 89051; 90471; 90686; 93005; 93010; 93306; C9113; G0008; J0456; J1644; J1815; J1940; J2001; J2185; J2405; J2765; J7050

== ENCOUNTER 2018-05-28 13:33 | Emergency (ER) | payer OTHER ==
[2018-05-28] MEDS ORDERED: Insulin Regular 100 units/100 ml in NS IVPB SCH (14:15)
[2018-05-28 17:28] LABS: Bicarbonate (HCO3v) 17.7 mmol/L (22.0-29.0); CO2 Tension (PvCO2) 29.3 mmHg (41.0-51.0); Calcium, Ionized 1.03 mmol/L (1.12-1.32); Hemoglobin - Calc 13.4 g/dL (12.0-18.0); O2 Tension (PvO2) 45.4 mmHg (35.0-45.0); T. Carbon Dioxide 18.6 mmol/L (1.0-85.0); vO2 Saturation-calc 81.5 % (94-98)
[2018-05-28 17:48] LABS: Bilirubin Negative (Negative); Blood, Urine Moderate (Negative); Clarity CLEAR (Clear); Glucose, Urine (Dipstick) >=1000 mg/dL (Negative); Leukocyte Negative (Negative); Nitrite Negative (Negative); Protein, Urine (Dipstick) > or equal to 300 mg/dL (Neg-Trace); Specific Gravity, Urine 1.027 (1.002-1.036); Urobilinogen 0.2 mg/dL (0.2-1.0)
[2018-05-28 17:49] LABS: Phosphorus 4.3 mg/dL (2.3-4.7)
[2018-05-28 17:50] LABS: Bacteria/HPF None Seen HPF (None Seen); Hyaline Casts/LPF 4-6 HYALINE CAST LPF (0-3 Hyaline); Pathc Cast-AUWi Flag 0.87 (0-2.49); RBC/HPF 21-50 HPF (0-3)
[2018-05-28 17:53] LABS: Chloride 99 mmol/L (98-107); Magnesium 1.7 mg/dL (1.6-2.6); Potassium 4.3 mmol/L (3.5-5.1); Sodium 132 mmol/L (136-145)
[2018-05-28 17:56] LABS: Anion Gap 19 mmol/L (10-20); Carbon Dioxide 18 mmol/L (22-29)
[2018-05-28 17:58] LABS: BUN (Urea Nitrogen) 53 mg/dL (9.8-20.1); Calc. Creatinine Clearance 0 mL/min (70-130); Estimated GFR-MDRD 23
[2018-05-28 18:13] LABS: Crystals/HPF 2+ STARCH HPF (Negative)
[2018-05-28 18:28] LABS: Glucose 597 mg/dL (70-105)
--- NOTE | 2018-05-28 18:55 | RAD ---
CHEST ONE VIEW: 05/28/18 COMPARISON: Earlier exam the same day. HISTORY: Central line placement. Right sided jugular line is seen. Catheter tip overlies the right atrium. No signs of pneumothorax. E ffusions appear smaller but this may just be related to the semierect technique. Pulmonary vessels ap pear somewhat engorged. IMPRESSION: Placement of right sided central line. Catheter tip overlies the right atrium. No signs of pneumothor ax. POS: [facility]
== END 2018-05-28 20:27 | disposition left against medical advice (07) ==
LOC: ERS 13:33
DX: E11.10 Type 2 diabetes mellitus with ketoacidosis without coma (principal); I10 Essential (primary) hypertension; F17.290 Nicotine dependence, other tobacco product, uncomplicated
CPT/HCPCS: 36416; 36556; 71045; 82010; 82330; 82803; 83735; 84100; 96361; 96365; 96366; J1815; J7050

== ENCOUNTER 2018-09-09 11:08 | Outpatient (CLI) | payer OTHER ==
--- NOTE | 2018-09-09 15:35 | MMO ---
Bilateral MAMMO Bilat Screen [facility]. CLINICAL HISTORY: Patient is 52 years old and is seen for screening. The patient has the following family history of breast cancer: cousin female. The patient has no personal history of cancer. VIEWS: The views performed were: bilateral craniocaudal and bilateral mediolateral oblique. This study has been interpreted with the assistance of computer-aided detection. MAMMOGRAM FINDINGS: There are scattered fibroglandular densities. There are benign appearing and vascular calcifications seen in both breasts. IMPRESSION: CALCIFICATIONS IN BOTH BREASTS ARE BENIGN. A ROUTINE FOLLOW-UP MAMMOGRAM IN 1 YEAR IS RECOMMENDED. ACR BI-RADS Category 2 - Benign finding MAMMOGRAPHY NOTE: 1. A negative mammogram report should not delay a biopsy if a dominant of clinically suspicious mass is present. 2. Approximately 10% to 15% of breast cancers are not detected by mammography. 3. Adenosis and dense breasts may obscure an underlying neoplasm.
== END 2018-09-09 11:09 | disposition home or self-care (01) ==
LOC: SCSMAMMO 11:08
PROVIDERS: ATTEND Family Medicine
DX: Z12.31 Encounter for screening mammogram for malignant neoplasm of breast (principal); R92.1 Mammographic calcification found on diagnostic imaging of breast; Z80.3 Family history of malignant neoplasm of breast
CPT/HCPCS: 77067

== ENCOUNTER 2018-09-17 12:53 | Inpatient (IN) | payer MEDICAID, OTHER ==
[2018-09-17 13:46] LABS: #Basophils 0.1 thou/uL (0.0-0.2); #Eosinphils 0.4 thou/uL (0.0-0.7); #Lymphocytes 1.6 thou/uL (1.20-3.40); #Monocytes 0.6 thou/uL (0.11-0.59); #Neutrophils 5.9 thou/uL (1.40-6.50); %Basophils 0.7 % (0.0-1.0); %Eosinophils 5.1 % (0.0-10.0); %Lymphocytes 18.3 % (21.0-51.0); %Monocytes 7.2 % (0.0-10.0); %Neutrophils 68.7 % (42.0-75.0); Hemoglobin 10.7 g/dL (12.0-16.0); Mean Corpuscular HGB CONC 31.9 g/dL (32.0-36.0); Mean Corpuscular Hemoglobin 27.5 pg (27.0-31.0); Mean Platelet Volume 8.7 fL (7.4-10.4); Platelet Count 277 thou/uL (130-400); RBC Distribution Width 13.9 % (11.5-14.5); Red Blood Cell (RBC) Count 3.91 mill/uL (4.20-5.40); White Blood Cell (WBC) Count 8.6 thou/uL (4.8-10.8)
--- NOTE | 2018-09-17 13:55 | RAD ---
SINGLE VIEW CHEST: Date: 09/17/18 COMPARISON: 05/28/18. HISTORY: Chest pain and shortness of breath. FINDINGS: Single view of the chest shows a cardiomediastinal silhouette which is upper limits of normal in size . Opacity is seen in the left lung base, which likely represents a combination of a pleural effusion and adjacent atelectasis versus infiltrate. A small calcified granuloma projects over the mid portion of the right thorax. The bones are unremarkable. IMPRESSION: Left pleural effusion with adjacent atelectasis versus infiltrate. POS: [facility]
[2018-09-17 14:01] LABS: ALT (SGPT) 8 U/L (8-55); AST (SGOT) 12 U/L (5-34); Albumin 2.9 g/dL (3.5-5.0); Alkaline Phosphatase 139 U/L (40-150); Anion Gap 15 mmol/L (10-20); BUN (Urea Nitrogen) 62 mg/dL (9.8-20.1); Bilirubin, Total 0.3 mg/dL (0.2-1.2); CK (CPK) 190 U/L (29-168); Calc. Creatinine Clearance 0 mL/min (70-130); Calcium 8.2 mg/dL (7.8-10.44); Carbon Dioxide 22 mmol/L (22-29); Chloride 100 mmol/L (98-107); Estimated GFR-MDRD 11; Globulin 2.6 g/dL (2.4-3.5); Glucose 313 mg/dL (70-105); Protein, Total 5.5 g/dL (6.0-8.3); Sodium 132 mmol/L (136-145)
[2018-09-17 14:32] LABS: CKMB 8.2 ng/mL (0-6.6)
[2018-09-17 17:51] LABS: Troponin I 0.096 ng/mL (< 0.028)
[2018-09-17] MEDS ORDERED: Ondansetron ODT 4 MG TAB SL PRN (19:41)
[2018-09-17] MEDS ORDERED: Ondansetron PF 4 MG/2 ML Vial IVP PRN (19:41)
[2018-09-17] MEDS ORDERED: Acetaminophen 325 MG TAB PO PRN (19:41)
[2018-09-17 20:03] VITALS: BMI 20.9
[2018-09-17] MEDS ORDERED: Dextrose 5% in Water 1,000 ML IV PRN (20:33)
[2018-09-17] MEDS ORDERED: Dextrose 50% Abboject 50 ML SYRINGE SLOW IVP PRN (20:33)
[2018-09-17] MEDS ORDERED: HumaLOG 300 UNITS/3 ML VIAL SC PRN ×4 (20:33→20:38)
--- NOTE | 2018-09-17 20:41 | PDOC.EVN ---
Event Note - Event Note Event Note: H&P [id number]
[2018-09-17 20:57] LABS: Troponin I 0.101 ng/mL (< 0.028)
[2018-09-17] MEDS ORDERED: Insulin Regular 300 UNITS/3 ML VIAL SC PRN ×2 (21:53)
[2018-09-17] MEDS: Insulin Glargine 10 UNITS in Pre-Filled Syringe 1 EACH SC SCH (22:03)
[2018-09-17] MEDS: Carvedilol 6.25 MG TAB PO SCH (22:03)
[2018-09-17] MEDS: TICAGRELOR 90 MG TABLET PO SCH (22:04)
[2018-09-17] MEDS: Gabapentin 100 MG CAP PO SCH (22:05)
--- NOTE | 2018-09-18 03:14 | HP ---
ADMITTING COMPLAINT: Shortness of breath and chest pain. HISTORY OF PRESENT ILLNESS: This is a 52-year-old female, who follows very closely with Nephrology, Dr. Singh and Pulmonology, Dr. Funez as outpatient, but was not able to reach either one of them for her complaint of admission today. The patient states that she has been having worsening shortness of breath, was told recently by her child psychiatrist that she is close to dialysis; however, arrangements have not been made at this point in time. The patient presents to the ER with a creatinine of and blood sugars above 400, complaining of shortness of breath and chest pain. Of note, on chest x-ray, the patient was found to have a left-sided pleural effusion as well. The patient being otherwise stable hemodynamically. States she has no other associated symptoms or complaints apart from some dyspnea on exertion and some mild chest discomfort as well on exertion. The patient denies any other associated symptoms or complaints. No other alleviating or aggravating factors. The patient was seen and examined. All questions were answered. ALLERGIES: . PLEASE SEE THE ALLERGY LIST IN THE EMR. REVIEW OF SYSTEMS: All systems reviewed. Pertinent positives in HPI, otherwise negative. PAST MEDICAL HISTORY: Positive for CKD, coronary artery disease with four stents, hypertension, hypothyroidism, anemia, metabolic bone disease as well as diabetes mellitus and hyperlipidemia. FAMILY HISTORY: Positive for hypertension and diabetes. SOCIAL HISTORY: States that she smokes an E cigarette now, quit apparently in 03/2018, but did have a smoking history for significant portion of her life. Social drinker. HOME MEDICATIONS: See AUG. PHYSICAL EXAMINATION: VITAL SIGNS: Blood pressure was 133/88, pulse of 71, respiratory rate of 17, oral temperature 98.1, and O2 saturation 93% on 2 L nasal cannula. GENERAL: The patient lying in bed, in no acute discomfort. HEENT: Pupils are round and reactive to light and accommodation. Oral cavity moist and pink. No lymphadenopathy. NECK: Supple, mobile, nontender. Thyroid appreciated. CARDIOVASCULAR: Regular rate and rhythm. S1, S2. Faint systolic ejection murmur appreciated. RESPIRATORY: Clear to auscultation bilaterally except for the left lower lobe. Mild respiratory distress noted. No wheezing or rhonchi noted. ABDOMEN: Positive bowel sounds. Soft, nontender, nondistended. EXTREMITIES: 2+ peripheral pulses with trace pitting edema noted. No cyanosis or clubbing noted. NEUROLOGICAL: Cranial nerves 2 through 12 intact. No loss of sensory or motor function. LABORATORY DATA: CBC within normal limits, albeit hemoglobin at 10.7. Basic metabolic panel shows sodium of 132, creatinine of 4.36, and glucose of 313. Troponin; first, 3.096 and second, 1.096. CK-MB at 8.2. DIAGNOSTIC DATA: Chest x-ray was done in the ER, results were left pleural effusion with adjacent atelectasis versus infiltrates. ASSESSMENT: 1. Hypervolemic state. 2. Acute kidney injury on chronic kidney disease 5, possibly proceeding to end-stage renal disease. 3. Hypertension. 4. Chest discomfort. 5. Dyspnea on exertion. 6. Diabetes mellitus, type 2. 7. Metabolic bone disease. 8. Anemia secondary to chronic renal disease. PLAN: 1. At this point in time, we will admit the patient to the inpatient service under Internal Medicine, consult Pulmonary, consult Nephrology. 2. We will start the patient on her home medications, to be resumed as appropriate. Insulin for her diabetes. Continue her aspirin and Brilinta. Will likely need dialysis access placement, defer to Nephrology for now. The patient wishes to remain a full code. We will trend troponins and adjust plan of care as the patient's condition progresses. Case and plan discussed with the patient at length. She understood and agreed with this plan. Job ID: [id number]
[2018-09-18 05:44] LABS: #Basophils 0.1 thou/uL (0.0-0.2); #Eosinphils 0.5 thou/uL (0.0-0.7); #Monocytes 0.6 thou/uL (0.11-0.59); #Neutrophils 5.9 thou/uL (1.40-6.50); %Basophils 0.7 % (0.0-1.0); %Lymphocytes 21.5 % (21.0-51.0); %Neutrophils 64.7 % (42.0-75.0); Hemoglobin 11.9 g/dL (12.0-16.0); Mean Corpuscular HGB CONC 31.1 g/dL (32.0-36.0); Mean Corpuscular Hemoglobin 27.1 pg (27.0-31.0); Mean Platelet Volume 8.9 fL (7.4-10.4); Platelet Count 316 thou/uL (130-400); Red Blood Cell (RBC) Count 4.39 mill/uL (4.20-5.40); White Blood Cell (WBC) Count 9.1 thou/uL (4.8-10.8)
[2018-09-18 06:06] LABS: Anion Gap 18 mmol/L (10-20); BUN (Urea Nitrogen) 63 mg/dL (9.8-20.1); Calc. Creatinine Clearance 15 mL/min (70-130); Carbon Dioxide 18 mmol/L (22-29); Chloride 101 mmol/L (98-107); Estimated GFR-MDRD 11; Glucose 266 mg/dL (70-105); Potassium 4.9 mmol/L (3.5-5.1); Sodium 132 mmol/L (136-145)
--- NOTE | 2018-09-18 06:49 | CON ---
DATE OF CONSULTATION: 09/17/2018 CONSULTING PHYSICIAN: ER physician. REASON FOR CONSULTATION: Acute kidney injury. REASON FOR ADMISSION: Nausea and vomiting. HISTORY OF PRESENT ILLNESS: This is a 52-year-old female, with history of CVA, type 2 diabetes, hypertension, who came to the hospital with above complaints. Nephrology was consulted for acute kidney injury. The patient does follow with Dr. Singh. No fever or chills. The patient throwing up for the last few days. No rash. No chest pain or palpitation. PAST MEDICAL HISTORY: Positive for CVA, type 2 diabetes, hypertension, CKD, and coronary artery disease. PAST SURGICAL HISTORY: Hysterectomy, , and cholecystectomy. HOME MEDICATIONS: 1. Gabapentin. 2. Aspirin. 3. Procardia. 4. Levemir. ALLERGIES: TO CIPRO, HYDRALAZINE . SOCIAL HISTORY: No smoking, alcohol, or drug use. FAMILY HISTORY: No history of any kidney disease. Positive for diabetes. REVIEW OF SYSTEMS: CONSTITUTIONAL: Negative for weight loss or gain, ability to conduct usual activities. SKIN: Negative for rash, itching. EYES: Negative for double vision, pain. ENT/MOUTH: Negative for nose bleeding, neck stiffness, pain, tenderness. CARDIOVASCULAR: Negative for palpitations, dyspnea on exertion, orthopnea. RESPIRATORY: Negative for shortness of breath, wheezing, cough, hemoptysis, fever or night sweats. GASTROINTESTINAL: Negative for poor appetite, abdominal pain, heartburn, nausea, vomiting, constipation, or diarrhea. GENITOURINARY: Negative for urgency, frequency, dysuria, nocturia. MUSCULOSKELETAL: Negative for pain, swelling. NEUROLOGIC/PSYCHIATRIC: Negative for anxiety, depression. ALLERGY/IMMUNOLOGIC: Negative for skin rash, bleeding tendency. PHYSICAL EXAMINATION: GENERAL: Reveals well-built female, in no apparent distress. VITAL SIGNS: Temperature 98, pulse 78, respiratory rate 18, and blood pressure 142/88. HEENT: Atraumatic and normocephalic. Oral mucosa is moist. NECK: Supple. CVS: S1 and S2 heard. Regular rate and rhythm. RESPIRATORY: Clear. GI: Abdomen is soft. MUSCULOSKELETAL: 1+ edema. DERMATOLOGIC: No skin rash. NEUROLOGIC: Alert and awake. PSYCHIATRIC: Mood and affect normal. LABORATORY DATA: Hemoglobin is 10.7, potassium is 5.0, BUN is 62, creatinine is 4.3. ASSESSMENT AND PLAN: 1. Chronic kidney disease, stage 5. No acute indications for dialysis. May need dialysis in the near future. 2. Hypoalbuminemia. 3. Edema. 4. Hypertension, stable. 5. Anemia. 6. Fluid overload. 7. No acute indication for dialysis, but we will continue to monitor. Avoid nephrotoxins. Thank you for the consult. Job ID: [id number]
[2018-09-18] MEDS ORDERED: Aspirin 81 mg Enteric Coated Tablet PO SCH (09:00)
[2018-09-18] MEDS: Carvedilol 6.25 MG TAB PO SCH (10:00)
[2018-09-18] MEDS: Amlodipine 5 MG TAB PO SCH (10:00)
[2018-09-18] MEDS: Gabapentin 100 MG CAP PO SCH ×2 (10:00→21:12)
[2018-09-18] MEDS: Atorvastatin Calcium 40 MG TAB PO SCH (10:00)
[2018-09-18] MEDS: TICAGRELOR 90 MG TABLET PO SCH (10:00)
[2018-09-18] MEDS ORDERED: Heparin 1,000 UNITS/ML VIAL ONE (11:11)
[2018-09-18 12:11] LABS: HBSAB Concentration 1.77 mIU/mL; HBSAg Index 0.19 S/CO (0-0.99); Hep B Core Total Ab Non-Reactive (NonReactive); Hep B Core Total Index 0.08 S/CO (0-0.79); Hep B Surf AB Non-Reactive (NonReactive); Hep B Surf Ag Non-Reactive S/CO (NonReactive); Hep C IgG Ab Non-Reactive (NonReactive)
[2018-09-18] MEDS ORDERED: Furosemide 100 MG/10 ML VIAL SLOW IVP SCH (13:00)
[2018-09-18] MEDS ORDERED: Metoprolol Tartrate 100 MG TAB PO SCH ×2 (13:00→21:00)
--- NOTE | 2018-09-18 13:20 | CON ---
DATE OF CONSULTATION: 09/18/2018 CONSULTING PHYSICIAN: Ej Mohamud DO. REASON FOR CONSULTATION: Shortness of breath. HISTORY OF PRESENT ILLNESS: The patient is a 52-year-old female, who presented to the hospital with several months of increasing shortness of breath and coughing up dark colored sputum. She also has developed significant chronic renal failure, for which dialysis is now being considered. I saw her in the hospital in April of 2018 for left thoracentesis. I had also seen her in February after a myocardial infarction and an episode of diabetic ketoacidosis with hyperosmolar state. She has seen all of my partners in the past regarding various issues, but I think she was originally seen by Dr. Espinosa back in 2015. She tells me she is about to have a dialysis catheter put in. PAST MEDICAL HISTORY: 1. End-stage renal disease. 2. Diabetes mellitus. 3. Coronary artery disease. 4. Peripheral neuropathy. 5. Systolic heart failure with EF 20% to 25%. 6. UTIs. 7. Anemia of chronic disease. PAST SURGICAL HISTORY: 1. Hysterectomy. 2. for cholecystectomy. FAMILY MEDICAL HISTORY: Remarkable for diabetes and stroke. SOCIAL HISTORY: She was smoking less than half a pack per day. She is now using electronic cigarettes. Does not consume alcohol. Very limited in terms of activities of daily living. ALLERGIES: CIPRO CAUSES FACIAL SWELLING. SHE IS ALSO ALLERGIC TO CAMPHOR, HYDRALAZINE, NAPROSYN. OUTPATIENT MEDICATIONS: These were reviewed and can be found listed in the home medication section on [facility]. REVIEW OF SYSTEMS: Remarkable for cough and congestion. No fever or chills. She has had some nausea. PHYSICAL EXAMINATION: VITAL SIGNS: Temperature 98.3, pulse 72, blood pressure 140/85, O2 saturation 93%. GENERAL: She appears in no acute distress. HEENT: Pupils react, sclerae icteric. Oropharynx clear. NECK: No adenopathy, JVD, or bruits. LUNGS: Fairly clear without wheezing or rhonchi. She has diminished breath sounds in the left base compared to right. Dullness to percussion left base. CARDIAC: S1, S2. Regular. ABDOMEN: Soft, nontender, nondistended. EXTREMITIES: No clubbing, cyanosis, or edema. LABORATORY DATA: White blood cell count 9.1, hematocrit 38.2, and platelet count 316. Sodium 132, potassium 4.9, chloride 101, CO2 18, BUN 63, creatinine 4.1, glucose 266. A chest x-ray shows a left pleural effusion, which I would characterize as small. ASSESSMENT: 1. Fluid overload, likely from chronic renal failure combined with chronic systolic heart failure. 2. Possible underlying chronic obstructive pulmonary disease given her smoking history. One of her main complaints was coughing up excess sputum. This could be due to chronic obstructive pulmonary disease and also due to chronic bronchitis. 3. Systolic heart failure. Plan, dialysis is planned. 4. Pleural effusion. Does not require thoracentesis at this time as this will be treated with the dialysis. 5. Trial of nebulization therapy as needed for pulmonary complaints. TIME SPENT: The above encompassed 50 minutes time, of that time, greater than 50% was spent with the patient or on the patient's unit in the hospital. Job ID: [id number]
--- NOTE | 2018-09-18 13:46 | PDOC.PN ---
- Subjective Encounter Start Date: 09/18/18 Encounter Start Time: 13:44 Subjective: still feels SOB w exertion.stuffy nose -: care discussed w daughter at bedside.pt to be started on dialysis -: pt and family agreeable - Objective Resuscitation Status - Order Detail: 09/17/18 20:28 Resuscitation Status Routine Resuscitation Status: FULL: Full Resuscitation Discussed with: patient BOBBY Reviewed: Yes Vital Signs & Weight: Vital Signs (12 hours) Temp Pulse Resp BP BP Pulse Ox 09/18/18 12:44 97.8 F 72 20 156/88 H 95 09/18/18 10:00 72 141/85 H 09/18/18 09:09 98.3 F 72 20 132/86 93 L 09/18/18 03:55 98.4 F 78 20 136/81 93 L Weight Weight 130 lb 3.2 oz Result Diagrams: 09/18/18 05:04 09/18/18 05:04 Additional Labs: Accuchecks 09/18/18 09/18/18 09/17/18 11:44 05:37 20:38 POC Glucose 217 H 248 H 400 H 09/17/18 09/17/18 15:50 13:00 POC Glucose 281 H 289 H Phys Exam - Physical Examination Constitutional: NAD pale and thin HEENT: PERRLA, moist MMs, sclera anicteric, TM's clear, oral pharynx no lesions , 2+ tonsils Neck: no nodes, no JVD, supple, full ROM Respiratory: no wheezing, no rhonchi bibasilar rales Cardiovascular: RRR, no significant murmur Gastrointestinal: soft, non-tender, no distention, positive bowel sounds Musculoskeletal: no edema, pulses present Neurological: non-focal, normal sensation, moves all 4 limbs Psychiatric: normal affect, A&O x 3 Dx/Plan (1) Acute systolic ACC/AHA stage C congestive heart failure Code(s): I50.21 - ACUTE SYSTOLIC (CONGESTIVE) HEART FAILURE Status: Acute (2) Acute renal failure superimposed on stage 3 chronic kidney disease Code(s): N17.9 - ACUTE KIDNEY FAILURE, UNSPECIFIED; N18.3 - CHRONIC KIDNEY DISEASE, STAGE 3 (MODERATE) Status: Acute (3) ESRD needing dialysis Code(s): N18.6 - END STAGE RENAL DISEASE; Z99.2 - DEPENDENCE ON RENAL DIALYSIS Status: Acute Comment: To be initiated this admission (4) Pleural effusion Code(s): J90 - PLEURAL EFFUSION, NOT ELSEWHERE CLASSIFIED Status: Chronic Comment: due to worsening renal failure (5) HTN (hypertension) Code(s): I10 - ESSENTIAL (PRIMARY) HYPERTENSION Status: Chronic (6) Hyperlipidemia Code(s): E78.5 - HYPERLIPIDEMIA, UNSPECIFIED Status: Chronic (7) Type II diabetes mellitus Status: Chronic - Plan plan discussed w/ family, DVT proph w/SCDs start diuresis while waiting for HD set up -: GS consulted for HD cathter placement.c -: restart home meds as below -: tele monitoring.am labs. -: avoid nephrotoxins * . Review of Systems - Review of Systems Constitutional: weakness, malaise Respiratory: SOB with Excertion. negative: Cough, Dry, Shortness of Breath, Hemoptysis, Pleuritic Pain, Sputum, Wheezing Cardiovascular: negative: chest pain, palpitations, orthopnea, paroxysmal nocturnal dyspnea, edema, light headedness, other Gastrointestinal: negative: Nausea, Vomiting, Abdominal Pain, Diarrhea, Constipation, Melena, Hematochezia, Other Genitourinary: negative: Dysuria, Frequency, Incontinence, Hematuria, Retention , Other Musculoskeletal: negative: Neck Pain, Shoulder Pain, Arm Pain, Back Pain, Hand Pain, Leg Pain, Foot Pain, Other Neurological: negative: Weakness, Numbness, Incoordination, Change in Speech, Confusion, Seizures, Other - Medications/Allergies Allergies/Adverse Reactions: Allergies Allergy/AdvReac Type Severity Reaction Status Date / Time camphor Allergy Verified 12/03/17 22:05 cephalexin [From Keflex] Allergy Verified 05/22/18 20:23 ciprofloxacin [From Cipro] Allergy Verified 12/03/17 22:05 hydralazine Allergy Verified 07/17/17 14:46 insulin lispro Allergy Verified 03/07/18 17:34 [From Humalog Mix] insulin lispro protamine Allergy Verified 03/07/18 17:34 [From Humalog Mix] latex Allergy Verified 05/22/18 20:23 lisinopril Allergy Verified 05/22/18 20:23 naproxen [From Naprosyn] Allergy Verified 07/17/17 14:46 Medications: Current Medications Albuterol/Ipratropium (Duoneb) 3 ml NEB [id number] SANDI Amlodipine Besylate (Norvasc) 5 mg PO DAILY [facility] Last Admin: 09/18/18 10:00 Dose: 5 mg Aspirin (Ecotrin) 81 mg PO DAILY [facility] Last Admin: 09/18/18 10:00 Dose: 81 mg Atorvastatin Calcium (Lipitor) 40 mg PO DAILY [facility] Last Admin: 09/18/18 10:00 Dose: 40 mg Dextrose/Water (Dextrose 50%) 25 gm SLOW IVP PRN PRN PRN Reason: Hypoglycemia Furosemide (Lasix) 80 mg SLOW IVP DAILY [facility] Furosemide (Lasix) 80 mg SLOW IVP NOW [facility] Stop: 09/18/18 15:00 Gabapentin (Neurontin) 100 mg PO BID [facility] Last Admin: 09/18/18 10:00 Dose: 100 mg Glucagon (Glucagon) 1 mg IM PRN PRN PRN Reason: Hypoglycemia Dextrose/Water (D5w) 1,000 mls @ 0 mls/hr IV .Q0M PRN PRN Reason: Hypoglycemia Insulin Glargine 10 units/ (Miscellaneous Medication) 0.1 mls @ 0 mls/hr SC [facility] Last Admin: 09/17/18 22:03 Dose: 0.1 mls Insulin Human Regular (Humulin R) 0 units SC .MILD SLIDING PRN; Protocol PRN Reason: MILD SLIDING SCALE Insulin Human Regular (Humulin R) 0 units SC .BEDTIME SLIDING SC PRN; Protocol PRN Reason: BEDTIME SLIDING SCALE Isosorbide Mononitrate (Imdur) 120 mg PO DAILY [facility] Last Admin: 09/18/18 10:00 Dose: 120 mg Metoprolol Tartrate (Lopressor) 100 mg PO BID [facility] Metoprolol Tartrate (Lopressor) 100 mg PO NOW [facility] Stop: 09/18/18 15:00 Pantoprazole Sodium (Protonix) 40 mg PO DAILY [facility] Pantoprazole Sodium (Protonix) 40 mg PO NOW [facility] Stop: 09/18/18 15:00 Sodium Chloride (Flush - Normal Saline) 10 ml IVF PRN PRN PRN Reason: Saline Flush Ticagrelor (Brilinta) 90 mg PO BID [facility] Last Admin: 09/18/18 10:00 Dose: 90 mg
--- NOTE | 2018-09-18 17:26 | ULT ---
BILATERAL UPPER EXTREMITY VENOUS ULTRASOUND: Date: 09/18/18 HISTORY: End-stage renal disease. COMPARISON: None. TECHNIQUE: Multiplanar Pavon scale and color Doppler images were obtained in a bilateral upper extremity venous u ltrasound. Spectral analysis of the Doppler waveforms were performed. FINDINGS: The bilateral internal jugular veins and subclavian veins are patent without evidence of thrombus. The right brachial, radial, and ulnar arteries measure 3.3, 1.5, and 1.7 mm in size, respectively. The left brachial, radial, and ulnar arteries measure 4.0, 1.0, and 1.4 mm in size, respectively. RIGHT UPPER EXTREMITY CEPHALIC VEIN Shoulder 0.8 mm Upper arm 1.5 mm Mid upper arm 1.3 mm Just proximal to elbow 1.3 mm Just distal to elbow 1.2 mm Forearm 1.6 mm Wrist 1.0 mm BASILIC VEIN Shoulder 3.0 mm Upper arm 2.3 mm Mid upper arm 2.8 mm Just proximal to elbow Not visualized Just distal to elbow 1.0 mm Forearm 0.7 mm Wrist 0.6 mm LEFT UPPER EXTREMITY CEPHALIC VEIN Shoulder Not visualized Upper arm Not visualized Mid upper arm Not visualized Just proximal to elbow Not visualized Just distal to elbow 1.9 mm Forearm 2.6 mm Wrist 0.8 mm BASILIC VEIN Shoulder 2.3 mm Upper arm 2.0 mm Mid upper arm 2.0 mm Just proximal to elbow 1.2 mm Just distal to elbow 1.3 mm Forearm 1.4 mm Wrist 1.2 mm IMPRESSION: Vein mapping for dialysis access as above. POS: [facility]
--- NOTE | 2018-09-18 18:22 | HP ---
HISTORY OF PRESENT ILLNESS: Annalisa Kaba is a 52-year-old female encouraged to be admitted by Dr. Singh and Dr. Ferguson for endstage renal disease and approaching need for dialysis. The patient initially refused, but finally began feeling so bad and having uremic symptoms with nausea and vomiting, then she was admitted and I was asked to see her regarding to initiate dialysis. She has chronic kidney disease from her diabetes and hypertension. She has known coronary artery disease. Dr. Willie Robledo placed four stents in her in January 2018. She had a low ejection fraction of 25% to 30%. She had hypokinetic septum. The patient denies any cardiac symptoms at this time. I have been asked to see her regarding establishing a peritoneal dialysis access. The patient's ultrasound vein mapping revealed that her cephalic vein left is nonvisualized and in her upper arm on the right, veins are small caliber. Plan at this time is under general anesthetic to have a laparoscopic peritoneal dialysis catheter. There is no evidence of hernias on exam. She has had a hysterectomy in the past. We will also during that same anesthetic place a hemodialysis catheter. We will plan exploration of right arm for primary fistula, but I will not place a prosthetic graft if a [place] vein fistula is not available. The patient has known coronary artery disease and should be stable for general anesthetic, although she has cardiomyopathy ischemic. Dr. Willie Robledo will see the patient and evaluate her preoperatively. ALLERGIES: CAMPHOR, CEPHALEXIN, QUINOLONES, HYDRALAZINE, AND INSULIN LISPRO. SOCIAL HISTORY: Tobacco cessation four weeks ago, half pack a day prior. Alcohol, none. MEDICATIONS: At home, 1. Aspirin 81 mg a day. 2. Amlodipine 5 mg a day. 3. Furosemide 80 mg a day. 4. Gabapentin 100 mg b.i.d. 5. Insulin glargine, insulin pump. 6. Isosorbide mononitrate. 7. Imdur 120 mg a day. 8. Metoprolol 100 mg b.i.d. 9. Protonix 40 mg a day. 10. Brilinta 90 mg p.o. b.i.d. PAST SURGICAL HISTORY: Two C-sections, total abdominal hysterectomy, bilateral salpingo-oophorectomy, and laparoscopic cholecystectomy. PAST MEDICAL HISTORY: Elevated cholesterol; hypertension; insulin-dependent diabetes mellitus, with an insulin pump; coronary artery disease with four stents placed; cardiomyopathy, ischemic, ejection fraction 25% to 30%. PHYSICAL EXAMINATION: VITAL SIGNS: Height 5 feet 6 inches, 130 pounds, 97.8 degrees, 86, 14, and 156/88. HEAD, EARS, EYES, NOSE, AND THROAT: Unremarkable. LUNGS: Clear to auscultation. CARDIAC: Regular rate and rhythm without murmur or gallop. ABDOMEN: Soft and nontender. No hernias. EXTREMITIES: Unremarkable. Multiple puncture sites, both antecubital areas. No visible vein demonstrable for hemodialysis access arms. Palpable radial pulses bilaterally. No foot wounds. LABORATORY DATA: White count 9, hemoglobin 11.9. Sodium 132, potassium 4.9, BUN 63, creatinine 4.17, GFR 11, CO2 of 18. ASSESSMENT AND PLAN: 1. End-stage renal disease. We will initiate hemodialysis temporary Trialysis catheter in right groin to initiate dialysis this . We will then plan general anesthetic on Friday with the laparoscopic peritoneal dialysis catheter and placement of a hemodialysis catheter and exploration of right arm for possible fistula. She understands risks and benefits of the procedure and consents. 2. Coronary artery disease. I have discussed with Dr. Willie Robledo. She will evaluate her preoperatively. 3. Tobacco abuse cessation four weeks ago. 4. Insulin-dependent diabetes mellitus with insulin pump, management per medical. 5. Nonvisualized cephalic vein, left upper arm. On vein mapping, inadequate veins in left arm for fistula. Plan exploration of the right arm for possible fistula. 6. On Brilinta. We would like to hold this prior to her operation if it is okay with Dr. Willie Robledo and then she can resume it postoperatively. Job ID: [id number]
--- NOTE | 2018-09-18 18:40 | PRG ---
DATE OF SERVICE: 09/18/2018 SUBJECTIVE: Patient was seen and examined at bedside and overnight events noted. Patient denies any shortness of breath or chest pain or palpitation. No history of nausea or vomiting or diarrhea or fever or chills or cramps. OBJECTIVE: GENERAL: This is a 52-year-old female, in no acute distress. VITAL SIGNS: Temperature is 97, pulse 87, respiratory rate 20. Blood pressure . HEENT: Atraumatic, normocephalic. Oral mucosa is moist NECK: Supple. CARDIOVASCULAR: S1, S2 heard. Rate and rhythm regular. RESPIRATORY: Clear to auscultation. GASTROINTESTINAL: Abdomen is soft. MUSCULOSKELETAL: No tenderness. No edema. DERMATOLOGIC: No skin rash. NEUROLOGIC: Alert and awake and oriented X3. No focal neurologic deficits. Moving all the extremities. PSYCHIATRIC: Mood and affect normal. LABORATORY DATA: Potassium is 4.9, BUN is 63, creatinine is 4.1. ASSESSMENT AND PLAN: 1. End-stage renal disease. Plan is to start on dialysis. Appreciate help from Surgery. The patient is interested in PD catheter and PD dialysis at home. 2. Plan is to have PD catheter and tunneled dialysis catheter. We will have temporary catheter now to start on dialysis over the weekend. 3. Hypoalbuminemia. 4. Edema. 5. Hypertension. 6. Anemia. 7. Fluid overload. PLAN: Plan is to have dialysis. Surgery consult placed. Job ID: [id number]
[2018-09-18] MEDS: Insulin Glargine 10 UNITS in Pre-Filled Syringe 1 EACH SC SCH (21:13)
--- NOTE | 2018-09-19 02:48 | CON ---
DATE OF CONSULTATION: REASON FOR CARDIOLOGY CONSULT: Surgical clearance for possible peritoneal dialysis cath and tunneled cath placement. HISTORY OF PRESENT ILLNESS: Ms. Kaba is a 52-year-old female with significant history of coronary artery disease with stent placement, chronic kidney disease, hypertension, hypothyroidism, and possible COPD. The patient had seen Dr. Singh, her mail room, last week. The patient was recommended to present to emergency department for worsening of shortness of breath, severe weakness, and elevated creatinine level at that time. However, because she was still breathing okay with room air at that time, she decided to postpone to present ER. However, yesterday, her shortness breath became worse with mild exertion and she could not even get up from her bed due to the severe weakness. Due to those reasons, the patient decided to present to the emergency department for further evaluation and treatment. Dr. Blanc consulted this patient today and the patient is going to undergo laparoscopic peritoneal dialysis catheter and placement of hemodialysis catheter on Friday. At this moment, the patient denied any shortness of breath, chest pain, discomfort, fluttering or palpitation in her chest, dizziness, lightheadedness, or any cardiac complaints except the patient had chest discomfort in middle sternal area due to this continued severe cough, which is stable at this moment. The patient underwent a bare metal stent placement in 02/2018. The patient had echocardiogram done in 04/2018, shows EF 25% to 30% . The patient had echocardiogram done in 07/2018 that shows EF of 30% to 35%, [id number] pulmonary insufficiency, moderate tricuspid regurgitation, mild aortic valve insufficiency, mild mitral valve regurgitation, elevated RVSP, and pleural effusion. PAST MEDICAL HISTORY: 1. Coronary artery disease. 2. Chronic kidney disease. 3. Hypertension. 4. Hypothyroidism. 5. Asthma. 6. Metabolic bone disease. 7. Diabetes. 8. Hyperlipidemia. 9. Gastroparesis. 10. Chronic anemia. PAST SURGICAL HISTORY: and hysterectomy. FAMILY HISTORY: They have a strong family history of hypertension and diabetes. SOCIAL HISTORY: She is . She quit smoking couple months ago and she stopped drinking also. She is living with her family member. She is using wheelchair occasionally due to abnormal balance. ALLERGIES: PLEASE REFER TO THE PATIENT'S MAR. HOME MEDICATIONS: 1. Atorvastatin 40 mg once a day. 2. Protonix 40 mg once a day. 3. Carvedilol 6.25 mg twice a day. 4. Ferrous sulfate 325 mg twice a day. 5. Brilinta 90 mg twice a day. 6. Vitamin D3 of 1000 units once a day. 7. Imdur 120 mg once a day. 8. Gabapentin 100 mg 3 times a day. 9. Amlodipine 5 mg once a day. 10. Lasix 80 mg twice a day. 11. Metoprolol 100 mg twice a day. 12. Glucagon as needed. 13. Spironolactone 25 mg once a day. 14. Humalog as needed. REVIEW OF SYSTEMS: 12-point review of systems is negative unless otherwise mentioned in HPI. PHYSICAL EXAMINATION: VITAL SIGNS: Blood pressure 153/84, temperature 98.7, pulse is 87, respiratory rate 20, and O2 saturation 93% on 2 L nasal cannula. GENERAL: The patient is alert and oriented x4. Not in acute distress. HEENT: Head, normocephalic and atraumatic. Eyes; extraocular muscle movements intact. ENT and mouth; oral and nasal mucosa moist without lesion. NECK: No JVD. Normal range of motion. No bruit or thrill noted. Carotid pulses are present. RESPIRATORY: Clear to auscultate bilaterally, but very diminished at the bases. CARDIOVASCULAR: Regular rate and rhythm. Normal S1 and S2. There is no S3 or S4. No significant murmur, hives, or thrill noted. 2+ pulses in bilateral upper and lower extremities. 1+ pitting edema in lower extremities. ABDOMEN: Soft, nontender. No mass to palpate. Bowel sounds are present. SKIN: Warm and dry. No rash, lesion, or erythema noticed. MUSCULOSKELETAL: The patient able to move all extremities in the bed. The patient denied claudication. NEUROLOGIC: The patient is alert and oriented x4. Nonfocal. PSYCHIATRIC: The patient's mood is appropriate. LABORATORY DATA: WBC 9.1, hemoglobin 11.9, hematocrit 38.2, and platelets 316. Sodium 132, potassium 4.9, BUN is 63, creatinine 4.17, glucose 266, AST 12, ALT 8, and CK-MB 8.2. Troponin is 0.096, 0.096, 0.101. DIAGNOSTIC DATA: Chest x-ray shows left pleural effusion with adjacent __ versus infiltrate. ASSESSMENT AND PLAN: 1. Surgical clearance for peritoneal dialysis catheter and tunneled catheter placement. The patient's echocardiogram in 07/2018 shows EF of 30% to 35% and mild AI and MR. The patient had a cardiac catheterization in 02/2018 with bare metal stent placement in left anterior descending, then right coronary artery. The patient is cleared for the procedure on Friday. We would like to go ahead and stop Brilinta and aspirin from tonight for procedure on Friday. 2. Coronary artery disease with stent placement in 02/2018. The patient's condition is stable. The patient is asymptomatic at this moment. The patient's 12-lead EKG and telemetry record at this moment shows no ST-segment change or T-wave inversion. The patient is on carvedilol 6.25 twice a day and atorvastatin 40 mg once a day. We would like to go ahead to stop the Brilinta and aspirin for possible procedure on Friday. 3. Chronic kidney disease, stage 4. The patient just finished her first hemodialysis today with 1500 mL output, which is managed by mail room, Dr. Singh. 4. Ischemic cardiomyopathy. The patient's condition is stable at this moment. She is on the carvedilol 6.25 mg twice a day and Lasix IV push, which we held tonight since the patient is going to have a dialysis. The patient is on the metoprolol tartrate 100 mg twice a day for the congestive heart failure. I would like to go ahead to stop metoprolol at this moment and change to carvedilol 6.25 mg twice a day due to the history of systolic heart failure and EF with 30% to 35%. 5. Hypertension. The patient's blood pressure is stable at this moment with current medication. 6. Insulin-dependent diabetes, which is managed by primary care doctor. 7. Chronic anemia. The patient's blood count is stable at this moment. Thank you very much for allowing the Cardiology to participate in the care of this patient. We will follow along the patient's care team and make further recommendations as appropriate. Job ID: [id number] MTDD
[2018-09-19] MEDS ORDERED: Furosemide 100 MG/10 ML VIAL SLOW IVP SCH (09:00)
[2018-09-19] MEDS ORDERED: Heparin 1,000 UNITS/ML VIAL ONE (11:11)
[2018-09-19] MEDS ORDERED: Tuberculin PPD 0.1 ML VIAL I-DERMAL SCH ×2 (12:00→12:45)
--- NOTE | 2018-09-19 12:56 | PRG ---
DATE OF SERVICE: 09/19/2018 SUBJECTIVE: I saw Ms. Kaba in dialysis today. She says she is breathing better. This is her second session of dialysis. OBJECTIVE: VITAL SIGNS: Temperature 97.6, pulse rate 86, respirations 18, O2 saturation 93% on 1 L, and blood pressure 137/79. HEENT: Unremarkable. NECK: No JVD. She has a left EJ catheter in place. LUNGS: Clear anteriorly. CARDIAC: S1 and S2. Regular. ABDOMEN: Soft. EXTREMITIES: She has a right groin dialysis catheter. LABORATORY DATA: No labs were obtained today. ASSESSMENT: 1. Dyspnea/chronic obstructive pulmonary disease - stable. 2. Fluid overload from chronic renal failure. 3. Systolic heart failure. 4. Pleural effusion secondary to fluid overload. PLAN: Continue with dialysis. The patient will not need a thoracentesis. Her pulmonary status is stable. We will see less often. Job ID: [id number]
--- NOTE | 2018-09-19 13:19 | PDOC.PN ---
- Subjective Encounter Start Date: 09/19/18 Encounter Start Time: 13:18 Subjective: c/o nasal congestion.SOb w exertion.no chest pain -: no acute events ON -: s/p femoral cathter placement - Objective Resuscitation Status - Order Detail: 09/17/18 20:28 Resuscitation Status Routine Resuscitation Status: FULL: Full Resuscitation Discussed with: patient BOBBY Reviewed: Yes Vital Signs & Weight: Vital Signs (12 hours) Temp Pulse Resp BP Pulse Ox 09/19/18 08:00 97.6 F 86 18 137/79 93 L 09/19/18 07:48 87 L 09/19/18 07:47 83 16 09/19/18 04:45 98.5 F 74 16 128/76 93 L Weight Admit Weight 130 lb 3.2 oz Weight 130 lb 3.2 oz I&O: 09/18/18 09/19/18 09/20/18 06:59 06:59 06:59 Intake Total 300 Output Total 700 Balance -400 Result Diagrams: 09/18/18 05:04 09/18/18 05:04 Additional Labs: Accuchecks 09/19/18 09/18/18 05:25 21:03 POC Glucose 70 193 H Phys Exam - Physical Examination Constitutional: NAD HEENT: PERRLA, moist MMs, sclera anicteric, oral pharynx no lesions Neck: no nodes, no JVD, supple, full ROM Respiratory: no wheezing, no rhonchi, clear to auscultation bilateral few bailar rales,reduced sounds at bases Cardiovascular: RRR, no significant murmur, no rub Gastrointestinal: soft, non-tender, no distention, positive bowel sounds Musculoskeletal: no edema, pulses present Neurological: non-focal, normal sensation, moves all 4 limbs Psychiatric: normal affect, A&O x 3 Skin: no rash Dx/Plan (1) Acute systolic ACC/AHA stage C congestive heart failure Code(s): I50.21 - ACUTE SYSTOLIC (CONGESTIVE) HEART FAILURE Status: Acute (2) Acute renal failure superimposed on stage 3 chronic kidney disease Code(s): N17.9 - ACUTE KIDNEY FAILURE, UNSPECIFIED; N18.3 - CHRONIC KIDNEY DISEASE, STAGE 3 (MODERATE) Status: Acute (3) ESRD needing dialysis Code(s): N18.6 - END STAGE RENAL DISEASE; Z99.2 - DEPENDENCE ON RENAL DIALYSIS Status: Acute Comment: To be initiated this admission (4) Pleural effusion Code(s): J90 - PLEURAL EFFUSION, NOT ELSEWHERE CLASSIFIED Status: Chronic Comment: due to worsening renal failure (5) HTN (hypertension) Code(s): I10 - ESSENTIAL (PRIMARY) HYPERTENSION Status: Chronic (6) Hyperlipidemia Code(s): E78.5 - HYPERLIPIDEMIA, UNSPECIFIED Status: Chronic (7) Type II diabetes mellitus Status: Chronic (8) CAD (coronary artery disease) Code(s): I25.10 - ATHSCL HEART DISEASE OF [place] CORONARY ARTERY W/O ANG PCTRS Status: Chronic Comment: EF 30-35% on ECHO in 07/2018 (9) Ischemic cardiomyopathy Code(s): I25.5 - ISCHEMIC CARDIOMYOPATHY Status: Acute - Plan plan discussed w/ family, DVT proph w/SCDs cont diuresis untill Hemodialysis is started.monitor renal Fx -: cont cardioprudent meds as below. metoprolol changed to carvedilol for ICMO -: cont ASA,statin.hemodynamically stable -: am labs -: cont supportive care * . Review of Systems - Review of Systems Constitutional: weakness, malaise. negative: fever, chills, sweats, other Respiratory: SOB with Excertion. negative: Cough, Dry, Shortness of Breath, Hemoptysis, Pleuritic Pain, Sputum, Wheezing Cardiovascular: negative: chest pain, palpitations, orthopnea, paroxysmal nocturnal dyspnea, edema, light headedness, other Gastrointestinal: negative: Nausea, Vomiting, Abdominal Pain, Diarrhea, Constipation, Melena, Hematochezia, Other Genitourinary: negative: Dysuria, Frequency, Incontinence, Hematuria, Retention , Other Musculoskeletal: negative: Neck Pain, Shoulder Pain, Arm Pain, Back Pain, Hand Pain, Leg Pain, Foot Pain, Other Neurological: negative: Weakness, Numbness, Incoordination, Change in Speech, Confusion, Seizures, Other - Medications/Allergies Allergies/Adverse Reactions: Allergies Allergy/AdvReac Type Severity Reaction Status Date / Time camphor Allergy Verified 12/03/17 22:05 cephalexin [From Keflex] Allergy Verified 05/22/18 20:23 ciprofloxacin [From Cipro] Allergy Verified 12/03/17 22:05 hydralazine Allergy Verified 07/17/17 14:46 insulin lispro Allergy Verified 03/07/18 17:34 [From Humalog Mix] insulin lispro protamine Allergy Verified 03/07/18 17:34 [From Humalog Mix] latex Allergy Verified 05/22/18 20:23 lisinopril Allergy Verified 05/22/18 20:23 naproxen [From Naprosyn] Allergy Verified 07/17/17 14:46 Medications: Current Medications Albuterol/Ipratropium (Duoneb) 3 ml NEB [id number] [facility] Last Admin: 09/19/18 07:47 Dose: 3 ml Amlodipine Besylate (Norvasc) 5 mg PO DAILY [facility] Last Admin: 09/18/18 10:00 Dose: 5 mg Atorvastatin Calcium (Lipitor) 40 mg PO DAILY [facility] Last Admin: 09/18/18 10:00 Dose: 40 mg Carvedilol (Coreg) 6.25 mg PO BID-[facility] Dextrose/Water (Dextrose 50%) 25 gm SLOW IVP PRN PRN PRN Reason: Hypoglycemia Furosemide (Lasix) 80 mg SLOW IVP DAILY [facility] Gabapentin (Neurontin) 100 mg PO BID [facility] Last Admin: 09/18/18 21:12 Dose: 100 mg Glucagon (Glucagon) 1 mg IM PRN PRN PRN Reason: Hypoglycemia Dextrose/Water (D5w) 1,000 mls @ 0 mls/hr IV .Q0M PRN PRN Reason: Hypoglycemia Insulin Glargine 10 units/ (Miscellaneous Medication) 0.1 mls @ 0 mls/hr SC HS [facility] Last Admin: 09/18/18 21:13 Dose: Not Given Insulin Human Regular (Humulin R) 0 units SC .MILD SLIDING PRN; Protocol PRN Reason: MILD SLIDING SCALE Insulin Human Regular (Humulin R) 0 units SC .BEDTIME SLIDING SC PRN; Protocol PRN Reason: BEDTIME SLIDING SCALE Isosorbide Mononitrate (Imdur) 120 mg PO DAILY [facility] Last Admin: 09/18/18 10:00 Dose: 120 mg Read Ppd Test Site 0 each PO ONE [facility] Stop: 09/22/18 09:01 Oxymetazoline HCl (Nasal Decongestant) 30 ml NS BID [facility] Pantoprazole Sodium (Protonix) 40 mg PO DAILY [facility] Sodium Chloride (Flush - Normal Saline) 10 ml IVF PRN PRN PRN Reason: Saline Flush Sodium Chloride ([place] Nasal [place] 0.65%) 1 ml EA NARE TID PRN PRN Reason: Nasal Congestion Tuberculin PPD (Aplisol) 0.1 ml I-DERMAL NOW [facility] Stop: 09/19/18 16:00
--- NOTE | 2018-09-19 13:38 | PDOC.CTH ---
Cardiology Progress Note - Subjective The pt seen and examined. No overnight events. No cardiac complaints. - Objective Vital Signs Temp Pulse Resp BP Pulse Ox 09/19/18 08:00 97.6 F 86 18 137/79 93 L 09/19/18 07:48 87 L 09/19/18 07:47 83 16 09/19/18 04:45 98.5 F 74 16 128/76 93 L Admit Weight 130 lb 3.2 oz Weight 130 lb 3.2 oz 09/18/18 09/19/18 09/20/18 06:59 06:59 06:59 Intake Total 300 Output Total 700 2000 Balance -400 -2000 - Physical Examination General/Neuro: alert & oriented x3 Neck: no JVD present Lungs: CTA Heart: RRR Abdomen: soft Extremities: other: (No edema) - Telemetry Telemetry Rhythm: SR - Labs Result Diagrams: 09/18/18 05:04 09/18/18 05:04 Troponin/CKMB CK-MB (CK-2) 8.2 ng/mL (0-6.6) H* 09/17/18 13:35 Troponin I 0.101 ng/mL (< 0.028) H 09/17/18 20:23 - Assessment/Plan 1. ESRD - Plan for PD cath and tunnel cath placement on 09/21/2018; holding Brilinta and ASA. 2. Acute on Chronic Systolic HF with EF 30-35% in 07/2018 - Stable with RA; 3. Pleural effusion - 4. HTN - stable with current med 5. Hyperlipidemia - on Statin 6. IDDM - managed by PCP 7. Anemia - stable 8. CAD - stable. MAR reviewed Pt. seen and eval. by me. I agree with the A/P by the STRING STUDIES DIRECTOR. The EF has improved since her earlier coronary interventions. gjm . Review of Systems - Review of Systems Constitutional: reports: no symptoms reported EENTM: reports: no symptoms reported Respiratory: reports: no symptoms reported Cardiac (ROS): reports: no symptoms reported ABD/GI: reports: no symptoms reported : reports: no symptoms reported Musculoskeletal: reports: no symptoms reported
[2018-09-19] MEDS: Atorvastatin Calcium 40 MG TAB PO SCH (13:47)
[2018-09-19] MEDS: Gabapentin 100 MG CAP PO SCH ×2 (13:47→21:14)
[2018-09-19] MEDS ORDERED: Sodium Chloride 0.65% Nasal 44 ML BOT EA NARE PRN (13:50)
[2018-09-19] MEDS: Sodium Chloride 0.65% Nasal 44 ML BOT EA NARE PRN ×2 (13:54→21:12)
[2018-09-19] MEDS: Amlodipine 5 MG TAB PO SCH (14:03)
--- NOTE | 2018-09-19 15:23 | PRG ---
DATE OF SERVICE: 09/19/2018 SUBJECTIVE: Patient was seen and examined at bedside and overnight events noted. Patient denies any shortness of breath or chest pain or palpitation. No history of nausea or vomiting or diarrhea or fever or chills or cramps. OBJECTIVE: GENERAL: This is a well-built female, in no apparent distress. VITAL SIGNS: Temperature 97.6. Heart rate 86. Respiratory rate 18. Blood pressure 137/79. HEENT: Atraumatic, normocephalic. Oral mucosa is moist NECK: Supple. CARDIOVASCULAR: S1, S2 heard. Rate and rhythm regular. RESPIRATORY: Clear to auscultation. GASTROINTESTINAL: Abdomen is soft. MUSCULOSKELETAL: No tenderness. No edema. DERMATOLOGIC: No skin rash. NEUROLOGIC: Alert and awake and oriented X3. No focal neurologic deficits. Moving all the extremities. PSYCHIATRIC: Mood and affect normal. LABORATORY DATA: No labs done today. ASSESSMENT AND PLAN: 1. End-stage renal disease. Continue on dialysis as tolerated. Follow up with Case Management for outpatient placement. 2. Home visit needs to be done before PD catheter placed. 3. Hypoalbuminemia. 4. Edema. 5. Hypertension. 6. Anemia. 7. Fluid overload. Plan is to continue on dialysis as tolerated. Job ID: [id number]
[2018-09-19] MEDS: Carvedilol 6.25 MG TAB PO SCH (16:43)
[2018-09-19] MEDS ORDERED: Oxymetazoline HCl 0.05% (30 ML BOT) NS SCH (21:00)
[2018-09-19] MEDS: Insulin Glargine 10 UNITS in Pre-Filled Syringe 1 EACH SC SCH (21:58)
[2018-09-20] MEDS: Gabapentin 100 MG CAP PO SCH ×2 (09:32→21:15)
[2018-09-20] MEDS: Amlodipine 5 MG TAB PO SCH (09:32)
[2018-09-20] MEDS: Carvedilol 6.25 MG TAB PO SCH ×3 (09:33→16:42)
[2018-09-20] MEDS: Atorvastatin Calcium 40 MG TAB PO SCH (09:33)
[2018-09-20] MEDS: Sodium Chloride 0.65% Nasal 44 ML BOT EA NARE PRN ×2 (09:34→21:14)
--- NOTE | 2018-09-20 12:37 | PDOC.PN ---
- Subjective Encounter Start Date: 09/20/18 Encounter Start Time: 12:36 Subjective: feels much better.hungry and eating well. mobile -: no nausea or vomiting -: expectoration getting better - Objective Resuscitation Status - Order Detail: 09/17/18 20:28 Resuscitation Status Routine Resuscitation Status: FULL: Full Resuscitation Discussed with: patient MAR Reviewed: Yes Vital Signs & Weight: Vital Signs (12 hours) Temp Pulse Resp BP BP Pulse Ox 09/20/18 09:33 109/64 09/20/18 09:32 90 09/20/18 08:48 98.0 F 90 20 126/71 93 L 09/20/18 08:31 89 16 09/20/18 03:47 99.3 F 89 18 121/64 92 L Weight Admit Weight 130 lb 3.2 oz Weight 130 lb 3.2 oz I&O: 09/19/18 09/20/18 09/21/18 06:59 06:59 06:59 Intake Total 300 240 Output Total 700 2000 Balance -400 -6630 Result Diagrams: 09/18/18 05:04 09/18/18 05:04 Additional Labs: Accuchecks 09/20/18 09/20/18 09/19/18 11:22 05:36 20:35 POC Glucose 319 H 253 H 291 H 09/19/18 16:56 POC Glucose 251 H Phys Exam - Physical Examination Constitutional: NAD HEENT: PERRLA, moist MMs, sclera anicteric, oral pharynx no lesions Neck: no nodes, no JVD, supple, full ROM Respiratory: no wheezing, no rales, no rhonchi Cardiovascular: RRR, no significant murmur Gastrointestinal: soft, non-tender, no distention, positive bowel sounds Musculoskeletal: no edema, pulses present Neurological: non-focal, normal sensation, moves all 4 limbs Psychiatric: normal affect, A&O x 3 Skin: no rash Dx/Plan (1) Acute systolic ACC/AHA stage C congestive heart failure Code(s): I50.21 - ACUTE SYSTOLIC (CONGESTIVE) HEART FAILURE Status: Acute (2) Acute renal failure superimposed on stage 3 chronic kidney disease Code(s): N17.9 - ACUTE KIDNEY FAILURE, UNSPECIFIED; N18.3 - CHRONIC KIDNEY DISEASE, STAGE 3 (MODERATE) Status: Acute Comment: HD initiated 09/19/18 (3) ESRD needing dialysis Code(s): N18.6 - END STAGE RENAL DISEASE; Z99.2 - DEPENDENCE ON RENAL DIALYSIS Status: Acute Comment: initiated this admission (4) Pleural effusion Code(s): J90 - PLEURAL EFFUSION, NOT ELSEWHERE CLASSIFIED Status: Chronic Comment: due to worsening renal failure (5) HTN (hypertension) Code(s): I10 - ESSENTIAL (PRIMARY) HYPERTENSION Status: Chronic (6) Hyperlipidemia Code(s): E78.5 - HYPERLIPIDEMIA, UNSPECIFIED Status: Chronic (7) Type II diabetes mellitus Status: Chronic (8) CAD (coronary artery disease) Code(s): I25.10 - ATHSCL HEART DISEASE OF [place] CORONARY ARTERY W/O ANG PCTRS Status: Chronic Comment: EF 30-35% on ECHO in 07/2018 (9) Ischemic cardiomyopathy Code(s): I25.5 - ISCHEMIC CARDIOMYOPATHY Status: Acute - Plan DVT proph w/SCDs stop lasix as HD initiated -: HD perm cath tomorrow w PD cathter. -: Monitor renal Fx and lytes -: HD stable -: home meds as below.EF has improved * . Review of Systems - Review of Systems Constitutional: negative: fever, chills, sweats, weakness, malaise, other ENT: negative: Ear Pain, Ear Discharge, Nose Pain, Nose Discharge, Nose Congestion, Mouth Pain, Mouth Swelling, Throat Pain, Throat Swelling, Other Respiratory: negative: Cough, Dry, Shortness of Breath, Hemoptysis, SOB with Excertion, Pleuritic Pain, Sputum, Wheezing Cardiovascular: negative: chest pain, palpitations, orthopnea, paroxysmal nocturnal dyspnea, edema, light headedness, other Gastrointestinal: negative: Nausea, Vomiting, Abdominal Pain, Diarrhea, Constipation, Melena, Hematochezia, Other Genitourinary: negative: Dysuria, Frequency, Incontinence, Hematuria, Retention , Other Musculoskeletal: negative: Neck Pain, Shoulder Pain, Arm Pain, Back Pain, Hand Pain, Leg Pain, Foot Pain, Other Neurological: negative: Weakness, Numbness, Incoordination, Change in Speech, Confusion, Seizures, Other - Medications/Allergies Allergies/Adverse Reactions: Allergies Allergy/AdvReac Type Severity Reaction Status Date / Time camphor Allergy Verified 12/03/17 22:05 cephalexin [From Keflex] Allergy Verified 05/22/18 20:23 ciprofloxacin [From Cipro] Allergy Verified 12/03/17 22:05 hydralazine Allergy Verified 07/17/17 14:46 insulin lispro Allergy Verified 03/07/18 17:34 [From Humalog Mix] insulin lispro protamine Allergy Verified 03/07/18 17:34 [From Humalog Mix] latex Allergy Verified 05/22/18 20:23 lisinopril Allergy Verified 05/22/18 20:23 naproxen [From Naprosyn] Allergy Verified 07/17/17 14:46 Medications: Current Medications Albuterol/Ipratropium (Duoneb) 3 ml NEB [id number] [facility] Last Admin: 09/20/18 08:31 Dose: 3 ml Amlodipine Besylate (Norvasc) 5 mg PO DAILY [facility] Last Admin: 09/20/18 09:32 Dose: 5 mg Atorvastatin Calcium (Lipitor) 40 mg PO DAILY [facility] Last Admin: 09/20/18 09:33 Dose: 40 mg Carvedilol (Coreg) 6.25 mg PO BID-[facility] Last Admin: 09/20/18 09:40 Dose: Not Given Dextrose/Water (Dextrose 50%) 25 gm SLOW IVP PRN PRN PRN Reason: Hypoglycemia Gabapentin (Neurontin) 100 mg PO BID [facility] Last Admin: 09/20/18 09:32 Dose: 100 mg Glucagon (Glucagon) 1 mg IM PRN PRN PRN Reason: Hypoglycemia Dextrose/Water (D5w) 1,000 mls @ 0 mls/hr IV .Q0M PRN PRN Reason: Hypoglycemia Insulin Glargine 10 units/ (Miscellaneous Medication) 0.1 mls @ 0 mls/hr SC [facility] Last Admin: 09/19/18 21:58 Dose: Not Given Insulin Human Regular (Humulin R) 0 units SC .MILD SLIDING PRN; Protocol PRN Reason: MILD SLIDING SCALE Insulin Human Regular (Humulin R) 0 units SC .BEDTIME SLIDING SC PRN; Protocol PRN Reason: BEDTIME SLIDING SCALE Isosorbide Mononitrate (Imdur) 120 mg PO DAILY [facility] Last Admin: 09/20/18 09:32 Dose: 120 mg Read Ppd Test Site 0 each PO ONE [facility] Stop: 09/22/18 09:01 Pantoprazole Sodium (Protonix) 40 mg PO DAILY [facility] Last Admin: 09/20/18 09:34 Dose: 40 mg Phenylephrine HCl ([place]-Syne[place] 0.5% Nasal [place]) 0 ml EA NARE BID [facility] Last Admin: 09/20/18 09:37 Dose: 1 spray Sodium Chloride (Flush - Normal Saline) 10 ml IVF PRN PRN PRN Reason: Saline Flush Last Admin: 09/19/18 21:19 Dose: 10 ml Sodium Chloride ([place] Nasal [place] 0.65%) 1 ml EA NARE TID PRN PRN Reason: Nasal Congestion Last Admin: 09/20/18 09:34 Dose: 1 spr
[2018-09-20 14:00] LABS: Anion Gap 10 mmol/L (10-20); BUN (Urea Nitrogen) 28 mg/dL (9.8-20.1); Calc. Creatinine Clearance 17 mL/min (70-130); Calcium 8.5 mg/dL (7.8-10.44); Carbon Dioxide 30 mmol/L (22-29); Chloride 97 mmol/L (98-107); Estimated GFR-MDRD 14; Glucose 418 mg/dL (70-105); Potassium 4.3 mmol/L (3.5-5.1); Sodium 133 mmol/L (136-145)
--- NOTE | 2018-09-20 14:21 | PDOC.CTH ---
Cardiology Progress Note - Subjective The pt seen and examined. No overnight events. No cardiac complaints. - Objective Vital Signs Temp Pulse Resp BP BP Pulse Ox 09/20/18 12:55 96.6 F L 89 17 120/63 92 L 09/20/18 09:33 109/64 09/20/18 09:32 90 09/20/18 08:48 98.0 F 90 20 126/71 93 L 09/20/18 08:31 89 16 09/20/18 03:47 99.3 F 89 18 121/64 92 L Admit Weight 130 lb 3.2 oz Weight 130 lb 3.2 oz 09/19/18 09/20/18 09/21/18 06:59 06:59 06:59 Intake Total 300 240 Output Total 700 2000 Balance -400 -1760 - Physical Examination General/Neuro: alert & oriented x3 Neck: no JVD present Lungs: CTA (diminished at bases) Heart: RRR Abdomen: soft Extremities: other: - Telemetry Telemetry Rhythm: SR - Labs Result Diagrams: 09/18/18 05:04 09/20/18 13:20 Troponin/CKMB CK-MB (CK-2) 8.2 ng/mL (0-6.6) H* 09/17/18 13:35 Troponin I 0.101 ng/mL (< 0.028) H 09/17/18 20:23 - Assessment/Plan 1. ESRD - Plan for PD cath and tunnel cath placement on 09/21/2018; holding Brilinta and ASA since 09/18/2018. 2. Acute on Chronic Systolic HF - Now EF 40-45% which EF 30-35% in 07/2018; stable with RA and HD; 3. Bilat Pleural effusion - stable with RA and HD 4. HTN - stable with current med 5. Hyperlipidemia - on Statin 6. IDDM - managed by PCP 7. Anemia - stable 8. CAD - stable. MAR reviewed * Echo on 09/19/2018 showed EF 40-45%, mild-mod MR, mild-mod TR, mild CT, and mod bilat pleural effusion. Pt. seen and eval. by me. I agree with the A/P by the OPERATIONS INSPECTOR. we have discussed the pt. and plan. Review of Systems - Review of Systems Constitutional: reports: no symptoms reported EENTM: reports: no symptoms reported Respiratory: reports: no symptoms reported Cardiac (ROS): reports: no symptoms reported ABD/GI: reports: no symptoms reported : reports: no symptoms reported Musculoskeletal: reports: no symptoms reported Skin: reports: no symptoms reported
--- NOTE | 2018-09-20 20:43 | PRG ---
DATE OF SERVICE: 09/20/2018 SUBJECTIVE: Patient was seen and examined at bedside and overnight events noted. Patient denies any shortness of breath or chest pain or palpitation. No history of nausea or vomiting or diarrhea or fever or chills or cramps. OBJECTIVE: GENERAL: This is a well-built female, in no apparent distress. VITAL SIGNS: Temperature 97.9. Heart rate 89. Respiratory rate 18. Blood pressure 130/80. HEENT: Atraumatic, normocephalic. Oral mucosa is moist NECK: Supple. CARDIOVASCULAR: S1, S2 heard. Rate and rhythm regular. RESPIRATORY: Clear to auscultation. GASTROINTESTINAL: Abdomen is soft. MUSCULOSKELETAL: No tenderness. No edema. DERMATOLOGIC: No skin rash. NEUROLOGIC: Alert and awake and oriented X3. No focal neurologic deficits. Moving all the extremities. PSYCHIATRIC: Mood and affect normal. LABORATORY DATA: Potassium 4.3, BUN is 28, and creatinine is 3.5. ASSESSMENT AND PLAN: 1. End-stage renal disease, on hemodialysis. The patient interested in PD catheter, but home situation needs to be evaluated as the patient have multiple pets at home. 2. Hypoalbuminemia. 3. Edema. 4. Hypertension. 5. Anemia. 6. Fluid overload. Follow with Case Management for outpatient placement. Follow up with Surgery for access placement and we will follow. Job ID: [id number]
[2018-09-21 07:06] LABS: Phosphorus 5.6 mg/dL (2.3-4.7)
[2018-09-21 07:07] LABS: Anion Gap 15 mmol/L (10-20); BUN (Urea Nitrogen) 36 mg/dL (9.8-20.1); Calc. Creatinine Clearance 16 mL/min (70-130); Calcium 8.9 mg/dL (7.8-10.44); Carbon Dioxide 26 mmol/L (22-29); Chloride 100 mmol/L (98-107); Estimated GFR-MDRD 12; Glucose 238 mg/dL (70-105); Magnesium 2.2 mg/dL (1.6-2.6); Potassium 4.4 mmol/L (3.5-5.1); Sodium 137 mmol/L (136-145)
[2018-09-21] MEDS: Carvedilol 6.25 MG TAB PO SCH ×2 (07:20→17:26)
--- NOTE | 2018-09-21 08:43 | CON ---
DATE OF CONSULTATION: 09/18/2018 ADDENDUM: Please refer the notes already dictated by my nurse practitioner, Pattie Chapman. INDICATION FOR CONSULTATION: A 52-year-old female with history of known coronary artery disease, cardiomyopathy for which within the last year underwent angioplasty and stent placement to the coronary artery. She has end-stage renal disease, has been advised to undergo dialysis in the past. She has also significant diabetes, has had episodes of diabetic ketoacidosis. She has presented to the hospital at this time with worsening of her renal failure and we were asked to see her due to severe decrease in left ventricular systolic function and history of coronary artery disease. At this time, she has denied any chest pain since having her stent placed and has been doing relatively well with this. She has remained on her medication and seems to have been compliant. She says she has been having some nausea and vomiting. She did have increase in her creatinine and decrease in her overall GFR and has been advised to start dialysis. At this time, she from a cardiac standpoint, appears to be relatively stable despite the cardiomyopathy. We will obtain a repeat echocardiogram. PAST MEDICAL HISTORY: Significant for coronary artery disease, angioplasty and stent placement to the left anterior descending artery and also the right coronary artery. She has diabetes, hypercholesterolemia, gastroesophageal reflux disease. She has had history of myocardial infarction in the past. She has had a CVA in the past. She has severe decrease in left ventricular systolic function. ALLERGIES: SHE IS ALLERGIC TO LATEX, CEPHALEXIN, AND LISINOPRIL. MEDICINES: Prior to admission, she has been taking 1. Furosemide. 2. Coreg. 3. Gabapentin. 4. Insulin. 5. Pantoprazole. 6. Vitamins. 7. Aspirin. 8. Isosorbide mononitrate. 9. Atorvastatin. 10. Probiotics. 11. She was on Brilinta 90 mg one b.i.d., we can certainly hold this medication at this time, I believe that she does have a non-drug coated stent. FAMILY HISTORY: Noncontributory. REVIEW OF SYSTEMS: Mainly, she is having some nausea and some vomiting due to the most likely her elevated BUN, but overall cardiac status has remained stable. Her remaining review of systems is unremarkable except what is noted in the history of present illness. PHYSICAL EXAMINATION: GENERAL: Reveals a thin elderly female, who actually appears older than her stated age. VITAL SIGNS: Her blood pressure is 133/84, O2 saturation is 93%, respiratory rate 14 to 20. She is afebrile. Heart rate is in the 70s to 80s, this shows a sinus rhythm. HEENT: Shows the head to be normocephalic and atraumatic. I do not hear any significant bruits at this time. CHEST: She does have some decreased breath sounds in the left base. CARDIOVASCULAR: Reveals a regular rate and rhythm. She has actually what appears to be a friction rub now most likely associated with elevated BUN. ABDOMEN: Soft and nontender. Positive bowel sounds are present. EXTREMITIES: Show no clubbing, cyanosis, or edema at this time. Pedal pulses are decreased, difficult to palpate. NEUROLOGIC: She appears to be intact. SKIN: Warm and dry. LABORATORY DATA: Show sodium was 132, potassium 5.0, creatinine was 4.36 with a BUN of 62. Her blood sugar was 300. CPK-MB was 8.2, troponin I was 0.096 and increased up to 0.1. Her CK was 190. Hemoglobin is 11.9 with WBC of 9.1, and platelet count was 316,000. IMPRESSION: 1. End-stage renal disease. The patient has need to undergo a dialysis. She actually already underwent dialysis today and stated that she felt better after some fluid was removed. She needs to undergo a fistula placement or either a dialysis catheter. I will evaluate her echocardiogram tomorrow morning to see what her ejection fraction is, but hope in the meantime she can continue some dialysis that will improve some of her laboratory data. We will stabilize her somewhat. We will be able to get some of the volume off. 2. History of coronary artery disease, angioplasty and stent placement. This appears to be stable at this time. 3. History of cardiomyopathy. We already obtained an echocardiogram for evaluation of left ventricular systolic function. 4. History of diabetes. This will be dealt with by the primary care service. 5. As far as her cardiomyopathy is concerned, if the ejection fracture remains stable or has improved, then she should be a reasonable candidate for surgery. Otherwise, we will need to be careful with the anesthesia and prolonged procedures. We had discussed I believe an AICD in the past and that she has refused to have an AICD implant as I recall. We can rediscuss these issues at this time if the ejection fraction still continues to be significantly compromised. Job ID: [id number]
[2018-09-21] MEDS ORDERED: Fentanyl 100 MCG/2 ML VIAL ONE ×2 (08:55→09:01)
[2018-09-21] MEDS ORDERED: Lidocaine 2% PF 5 ML VIAL ONE (08:58)
[2018-09-21] MEDS ORDERED: Sodium Chloride 0.9% 20 ML ONE (08:58)
[2018-09-21] MEDS ORDERED: Protamine Sulfate 50 MG/5 ML VIAL ONE (08:58)
[2018-09-21] MEDS ORDERED: Ioversol 68 % 50 ML VIAL ONE (08:58)
[2018-09-21] MEDS ORDERED: Bupivacaine/Epinephrine 0.25% 30 ML VIAL ONE (08:58)
[2018-09-21] MEDS ORDERED: READ PPD TEST SITE PO SCH (09:00)
[2018-09-21] MEDS ORDERED: Midazolam HCl 2 mg/2 ml Vial ONE (09:00)
[2018-09-21] MEDS ORDERED: Heparin 10,000 UNITS/1 ML VIAL ONE (09:03)
[2018-09-21] MEDS ORDERED: Sodium Chloride 0.9% 10 ML ONE (09:08)
[2018-09-21] MEDS ORDERED: Propofol 500 MG/50 ML VIAL ONE (09:24)
[2018-09-21] MEDS ORDERED: Clindamycin/D5W 600 mg/50 ml Premix Bag ONE (09:54)
--- NOTE | 2018-09-21 10:58 | OP ---
DATE OF PROCEDURE: 09/18/2018 PREOPERATIVE DIAGNOSIS: End-stage renal disease, in need of dialysis access. POSTOPERATIVE DIAGNOSIS: End-stage renal disease, in need of dialysis access. PROCEDURE PERFORMED: Right femoral vein Trialysis catheter. ANESTHESIA: 1% Xylocaine. DESCRIPTION OF PROCEDURE: With the patient at bedside, right groin was clipped of hair, prepared with ChloraPrep and draped in routine fashion. 1% Xylocaine was infiltrated in the skin and subcutaneous tissue about the OpSite, Seldinger technique was used to place a Trialysis catheter, removed the J-wire, securing the catheter with 3-0 nylon suture. Sterile dressing applied. Each port aspirated blood flushed with saline solution. The patient tolerated the procedure well. Job ID: [id number]
[2018-09-21] MEDS ORDERED: Heparin 10,000 UNITS/ 10 ML VIAL ONE ×2 (11:11→14:30)
[2018-09-21] MEDS ORDERED: Ondansetron HCl/PF 4 MG/2 ML Vial IVP PRN (11:19)
--- NOTE | 2018-09-21 11:38 | PQF ---
TESSA GARRETT RICHA MD [id number] [facility]-291 [id number] CLINICAL DOCUMENTATION IMPROVEMENT CLARIFICATION FORM: ICD-10 Updated PLEASE DO AN ADDENDUM TO THE PROGRESS NOTE WITH ANY DOCUMENTATION UPDATES OR ADDITIONS AND CARRY THROUGH TO DC SUMMARY. THANK YOU. DATE: 09/21/2018 ATTN: DR. HURTADO Please exercise your independent, professional judgment in responding to the clarification form. Clinical indicators are provided on the bottom of this form for your review Please check appropriate box(s): [ ] Acute Respiratory Failure: [ ] with Hypoxia [ ] with Hypercapnia [ ] Acute On Chronic Respiratory Failure: [ ] with Hypoxia [ ] with Hypercapnia [ ] Hypoxia [ X ] Other diagnosis [ ] Unable to determine In addition, please specify: Present on Admission (POA): [ ] Yes [ ] No [ X] Unable to determine I did not admit the patient.On my examination she was not in acute respiratory failure For continuity of documentation, please document condition throughout progress notes and discharge summary. Thank You. CLINICAL INDICATORS - SIGNS / SYMPTOMS / LABS: 09/17-ER:FEELS SHORT OF BREATH. RALES TO BLL. SAT 84%-ORA BUT 92% ON 2L. JUAREZ. UNABLE TO LAY FLAT. 09/18-H&P: MILD RESP DISTRESS NOTED. 09/17-CXR: LEFT PLEURAL EFFUSION WITH ADJACENT ATELECTASIS VS INFILTRATE. RISK FACTORS: Hx COPD, CHF, CKD COPD exacerbation / Asthma CHF exacerbation Former Tobacco abuse CVA TREATMENTS: Oxygen Monitoring of oxygenation status Respiratory treatments Diuresis (This form is maintained as a part of the permanent medical record) 2014 [employer]. All Rights Reserved Sarah Navarrete RN, CDIS [email or web address] [phone] MTDD
--- NOTE | 2018-09-21 11:54 | RAD ---
Exam: Chest one view: HISTORY: Vascular access catheter placement FINDINGS: 09/17/2018 Bilateral pleural effusions with bilateral vascular congestion. Mild cardiomegaly. No pneumothorax. R ight-sided vascular access placement. IMPRESSION: Vascular access catheter placement without pneumothorax. Bilateral pleural effusions with mild bilate ral vascular congestion and cardiomegaly
--- NOTE | 2018-09-21 12:32 | OP ---
DATE OF PROCEDURE: 09/21/2018 PREOPERATIVE DIAGNOSES: End-stage renal disease, in need of dialysis access with poor veins by vein mapping, nonvisualized cephalic vein left arm, right-handed patient. POSTOPERATIVE DIAGNOSES: End-stage renal disease, in need of dialysis access with poor veins by vein mapping, nonvisualized cephalic vein left arm, right-handed patient. Occluded right cephalic vein from previous IV access and occluded perforating branch antecubital vein. PROCEDURES PERFORMED: Ultrasound fluoroscopy used to facilitate placement of right IJ cuffed tunneled hemodialysis catheter. Placement of right arm fistula antecubital vein outflow basilic vein only, cephalic vein fibrotic occluding from previous IV access, perforating branch occluding fibrotic from previous IV access, radial artery of good caliber. Note, the patient had been scheduled for peritoneal dialysis catheter, but as she lives in the [facility], she felt her home was not hygienic enough and she did not feel comfortable having peritoneal dialysis catheter, thus decided just prior to this operation to not have the peritoneal dialysis catheter, but instead have a right arm fistula and hemodialysis catheter. She might decide to have a peritoneal dialysis catheter in the future. She had 4 coronary stents placed last year and was seen Dr. Souleymane Robledo preoperatively, and Brilinta and aspirin held for last 4 days preoperatively. She can resume those postoperatively tomorrow. Should she decide to have peritoneal dialysis in the future, Dr. Souleymane Robledo states she is stable from a cardiac standpoint to undergo that. DESCRIPTION OF PROCEDURE: The patient was taken to the operating room, where under regional anesthesia and IV sedation, her neck and chest and right upper extremity were prepared with ChloraPrep and draped in routine fashion. Local anesthetic was infiltrated into the skin and subcutaneous tissue for placement of hemodialysis catheter. Using ultrasound guidance, right internal jugular vein was cannulated with trocar catheter, J-wire threaded, trocar catheter removed. Skin was enlarged sharply. Stab incision was made over the right chest and used the pre-curved [employer] cuffed-tunneled hemodialysis catheter, was tunneled between 2 incisions, placed the fabric cuff beneath the skin exit site. Catheter was secured with 2 interrupted suture of 3-0 nylon. Sterile dressing applied. Small and medium size dilators were placed over the J-wire into the internal jugular vein removed. Dilator and Peel-Away sheath placed with J-wire in superior vena cava and dilator and J-wire were removed. Catheter was placed through the Peel-Away sheath and Peel-Away sheath removed. Fluoroscopically, catheter noted to be in good position. Platysma was approximated with 4-0 Monocryl, skin with subdermal 4-0 Monocryl and [place] glue applied. Each port aspirated blood and flushed with saline solution and heparinized saline solution 1000 units of heparin per mL indicating volume of the port. Incision was made in the proximal volar forearm longitudinally in right arm, carried down to skin and subcutaneous tissue. The cephalic vein in the upper arm was fibrosed from previous IV access. The perforating branch was fibrosed. The antecubital vein was dissected free and was of acceptable caliber. It was dissected free in stump, doubly clipped and divided and spatulated and interrogated with coronary dilators, passing coronary dilators from 2 mm to 3.5 mm coronary dilator without the basilic vein outflow. The patient had bruising from previous basilic vein access. Nonetheless, it was patent. The patient was given 6000 units of heparin intravenously by Anesthesia. After adequate circulation, the brachial ulnar and proximal radial artery clamped proximally and distally, and longitudinal arteriotomy was made sharply in the proximal radial artery, carried out just over the bifurcation of the ulnar artery due to length issues regarding the antecubital vein. End vein to side, proximal radial anastomosis created with continuous suture of 6-0 Prolene, complete anastomosis relieving the clamps and noting good Doppler signal in the basilic vein outflow. Good hemostasis was noted. The patient was given 25 mg of protamine intravenously by Anesthesia. Good hemostasis noted. Subcutaneous tissue was approximated with 3-0 Monocryl, skin with subdermal 4-0 Monocryl and [place] glue applied. Job ID: [id number]
--- NOTE | 2018-09-21 12:55 | PRG ---
DATE OF SERVICE: 09/21/2018 SUBJECTIVE: A 52-year-old female, being seen for end-stage renal disease. The patient denies any nausea, vomiting, or chest pain. OBJECTIVE: CONSTITUTIONAL: Awake, alert, in no acute distress. VITAL SIGNS: Afebrile, pulse 65, breathing 16, blood pressure 132/72. GENERAL APPEARANCE AND MENTAL STATUS: Fair. HEAD/NECK: Normocephalic. Atraumatic. EYES: EOMI. No deformity. EARS: Clear. No ulcers. NOSE: Intact. No lesions. MOUTH: Clear. No discharge. THROAT: Clear. No exudate. LUNGS: Clear. No crackles. CARDIAC: S1, S2. No rub. ABDOMEN: Benign. Bowel sounds positive. GENITALIA/RECTUM: Loo absent. BACK/EXTREMITIES: Edema 0+. NEUROLOGICAL: Alert and motor intact. SKIN: LYMPHATICS: LABORATORY DATA: Labs reviewed. IMPRESSION AND PLAN: 1. Stage 3 chronic kidney disease. Continue peritoneal dialysis. 2. Hypertension, stable. 3. Anemia, stable. 4. Medication based on GFR appropriate. Job ID: [id number]
[2018-09-21] MEDS: Acetaminophen 500 MG TAB PO PRN (13:26)
[2018-09-21] MEDS: Gabapentin 100 MG CAP PO SCH ×2 (13:28→20:21)
[2018-09-21] MEDS: Amlodipine 5 MG TAB PO SCH (13:28)
[2018-09-21] MEDS ORDERED: Bupivacaine HCl 0.5%/Epinephrine 1:200,000/PF 30 ml Vial ONE (14:04)
--- NOTE | 2018-09-21 14:16 | PDOC.PN ---
- Subjective Encounter Start Date: 09/21/18 Encounter Start Time: 14:14 Subjective: seen and examined. s/p HD cathter placement & feels well -: care discussed w daughter - Objective Resuscitation Status - Order Detail: 09/17/18 20:28 Resuscitation Status Routine Resuscitation Status: FULL: Full Resuscitation Discussed with: patient BOBBY Reviewed: Yes Vital Signs & Weight: Vital Signs (12 hours) Temp Pulse Resp BP BP Pulse Ox 09/21/18 11:45 97.7 F 83 18 137/61 98 09/21/18 07:29 75 14 90 L 09/21/18 07:12 98.8 F 91 17 132/72 94 L 09/21/18 07:10 94 L 09/21/18 03:25 99.4 F 90 18 129/73 93 L Weight Admit Weight 130 lb 3.2 oz Weight 130 lb 3.2 oz I&O: 09/20/18 09/21/18 09/22/18 06:59 06:59 06:59 Intake Total 240 1220 Output Total 2000 1510 Balance -1760 -290 Result Diagrams: 09/18/18 05:04 09/21/18 06:35 Additional Labs: Accuchecks 09/21/18 09/21/18 09/20/18 12:38 05:36 20:43 POC Glucose 274 H 218 H 301 H 09/20/18 16:44 POC Glucose 334 H Phys Exam - Physical Examination Constitutional: NAD HEENT: PERRLA, moist MMs, sclera anicteric, oral pharynx no lesions Neck: no nodes, no JVD, supple, full ROM Respiratory: no wheezing, no rales, no rhonchi, clear to auscultation bilateral Cardiovascular: RRR, no significant murmur Gastrointestinal: soft, non-tender, no distention, positive bowel sounds Musculoskeletal: no edema, pulses present Neurological: non-focal, normal sensation, moves all 4 limbs Psychiatric: normal affect, A&O x 3 Skin: no rash, normal turgor, cap refill <2 seconds Dx/Plan (1) Acute systolic ACC/AHA stage C congestive heart failure Code(s): I50.21 - ACUTE SYSTOLIC (CONGESTIVE) HEART FAILURE Status: Acute Comment: improved since started on dialysis.cont cardio prudent meds. cardiology following as well (2) Acute renal failure superimposed on stage 3 chronic kidney disease Code(s): N17.9 - ACUTE KIDNEY FAILURE, UNSPECIFIED; N18.3 - CHRONIC KIDNEY DISEASE, STAGE 3 (MODERATE) Status: Acute Comment: HD initiated 09/19/18 (3) ESRD needing dialysis Code(s): N18.6 - END STAGE RENAL DISEASE; Z99.2 - DEPENDENCE ON RENAL DIALYSIS Status: Acute Comment: initiated this admission (4) Pleural effusion Code(s): J90 - PLEURAL EFFUSION, NOT ELSEWHERE CLASSIFIED Status: Chronic Comment: due to worsening renal failure (5) HTN (hypertension) Code(s): I10 - ESSENTIAL (PRIMARY) HYPERTENSION Status: Chronic (6) Hyperlipidemia Code(s): E78.5 - HYPERLIPIDEMIA, UNSPECIFIED Status: Chronic (7) Type II diabetes mellitus Status: Chronic (8) CAD (coronary artery disease) Code(s): I25.10 - ATHSCL HEART DISEASE OF [place] CORONARY ARTERY W/O ANG PCTRS Status: Chronic Comment: EF 30-35% on ECHO in 07/2018 (9) Ischemic cardiomyopathy Code(s): I25.5 - ISCHEMIC CARDIOMYOPATHY Status: Acute - Plan plan discussed w/ family, PT/OT, out of bed/ambulate, DVT proph w/SCDs R IJ tunneled HD cathter and R arm fistula placed.pt requested HD instead -: of PD.cont & monitor labs -: Home OP HD set up needed for DC -: restart ASA,brillinta tomorrow as per GS clearance.appreciate recs -: hemodynamically stable.avoid nephrotoxins * . Review of Systems - Review of Systems Constitutional: negative: fever, chills, sweats, weakness, malaise, other ENT: negative: Ear Pain, Ear Discharge, Nose Pain, Nose Discharge, Nose Congestion, Mouth Pain, Mouth Swelling, Throat Pain, Throat Swelling, Other Respiratory: negative: Cough, Dry, Shortness of Breath, Hemoptysis, SOB with Excertion, Pleuritic Pain, Sputum, Wheezing Cardiovascular: negative: chest pain, palpitations, orthopnea, paroxysmal nocturnal dyspnea, edema, light headedness, other Gastrointestinal: negative: Nausea, Vomiting, Abdominal Pain, Diarrhea, Constipation, Melena, Hematochezia, Other Genitourinary: negative: Dysuria, Frequency, Incontinence, Hematuria, Retention , Other Musculoskeletal: negative: Neck Pain, Shoulder Pain, Arm Pain, Back Pain, Hand Pain, Leg Pain, Foot Pain, Other Neurological: negative: Weakness, Numbness, Incoordination, Change in Speech, Confusion, Seizures, Other - Medications/Allergies Allergies/Adverse Reactions: Allergies Allergy/AdvReac Type Severity Reaction Status Date / Time camphor Allergy Verified 12/03/17 22:05 cephalexin [From Keflex] Allergy Verified 05/22/18 20:23 ciprofloxacin [From Cipro] Allergy Verified 12/03/17 22:05 hydralazine Allergy Verified 07/17/17 14:46 insulin lispro Allergy Verified 03/07/18 17:34 [From Humalog Mix] insulin lispro protamine Allergy Verified 03/07/18 17:34 [From Humalog Mix] latex Allergy Verified 05/22/18 20:23 lisinopril Allergy Verified 05/22/18 20:23 naproxen [From Naprosyn] Allergy Verified 07/17/17 14:46 Medications: Current Medications Acetaminophen (Tylenol) 1,000 mg PO Q6H PRN PRN Reason: Mild Pain (1-3) Last Admin: 09/21/18 13:26 Dose: 1,000 mg Albuterol/Ipratropium (Duoneb) 3 ml NEB [id number] Last Admin: 09/21/18 13:29 Dose: Not Given Amlodipine Besylate (Norvasc) 5 mg PO DAILY [facility] Last Admin: 09/21/18 13:28 Dose: Not Given Atorvastatin Calcium (Lipitor) 40 mg PO DAILY [facility] Last Admin: 09/20/18 09:33 Dose: 40 mg Carvedilol (Coreg) 6.25 mg PO BID-[facility] Last Admin: 09/21/18 07:20 Dose: 6.25 mg Dextrose/Water (Dextrose 50%) 25 gm SLOW IVP PRN PRN PRN Reason: Hypoglycemia Fentanyl (Pacu-Sublimaze) 50 mcg SLOW IVP Q10MIN PRN PRN Reason: Moderate to Severe Pain (6-10) Stop: 09/21/18 14:19 Gabapentin (Neurontin) 100 mg PO BID [facility] Last Admin: 09/21/18 13:28 Dose: Not Given Glucagon (Glucagon) 1 mg IM PRN PRN PRN Reason: Hypoglycemia Dextrose/Water (D5w) 1,000 mls @ 0 mls/hr IV .Q0M PRN PRN Reason: Hypoglycemia Insulin Human Regular (Humulin R) 0 units SC .MILD SLIDING PRN; Protocol PRN Reason: MILD SLIDING SCALE Insulin Human Regular (Humulin R) 0 units SC .BEDTIME SLIDING SC PRN; Protocol PRN Reason: BEDTIME SLIDING SCALE Isosorbide Mononitrate (Imdur) 120 mg PO DAILY [facility] Last Admin: 09/21/18 13:28 Dose: Not Given Read Ppd Test Site 0 each PO ONE [facility] Stop: 09/22/18 09:01 Ondansetron HCl (Pacu-Zofran) 4 mg IVP ONE PRN PRN Reason: Nausea/Vomiting Stop: 09/21/18 14:19 Pantoprazole Sodium (Protonix) 40 mg PO DAILY [facility] Last Admin: 09/20/18 09:34 Dose: 40 mg Phenylephrine HCl (Jaswant-Synephrine 0.5% Nasal [place]) 0 ml EA NARE BID [facility] Last Admin: 09/21/18 13:09 Dose: 1 spray Sodium Chloride (Flush - Normal Saline) 10 ml IVF PRN PRN PRN Reason: Saline Flush Last Admin: 09/20/18 21:16 Dose: 10 ml Sodium Chloride ([place] Nasal [place] 0.65%) 1 ml EA NARE TID PRN PRN Reason: Nasal Congestion Last Admin: 09/20/18 21:14 Dose: 1 spr Tramadol HCl (Ultram) 50 mg PO Q6H PRN PRN Reason: Moderate Pain (4-6) Tramadol HCl (Ultram) 100 mg PO Q6H PRN PRN Reason: Severe Pain (7-10)
[2018-09-21] MEDS ORDERED: PROPOFOL 200 MG/20 ML VIAL ONE (14:30)
[2018-09-21] MEDS ORDERED: Lidocaine 1% PF 5 ML VIAL ONE (14:30)
--- NOTE | 2018-09-21 15:33 | OP ---
DATE OF PROCEDURE: 09/21/2018 Annalisa Kaba is seen this morning to discuss dialysis access. I discussed with her last week peritoneal dialysis. [place] to the dialysis center would be difficult and she desired peritoneal dialysis. Ultrasound vein mapping revealed that her cephalic vein left arm upper is occluded from antecubital access this hospitalization ER and floor. The patient is unlikely to be able to have a nisqually vein fistula. I have discussed these matters with the patient and her daughter. The patient and daughter feel that the hygiene of the house is poor. There is lot of dirt and they have a pet makes hygiene difficult. Dialysis center wanted to send someone to her home to inspect her home to assess it for peritoneal dialysis. Considering these options, the patient does not want to have peritoneal dialysis at this time. Dr. Josette Robledo did see her considering that she had 3 cardiac stents placed last year. Her cardiomyopathy has improved from the 30% ejection fraction to 45%. It was felt safe to proceed with a general anesthetic for laparoscopic peritoneal dialysis catheter. However, the patient does not want to have this at this time. She is right handed. Her ultrasound vein mapping shows veins smaller in the right arm and it is very likely she will need a prosthetic graft. Discussing these matters with her and the poor durability and increase interventions to maintain a dialysis graft, she wishes to proceed with placement of hemodialysis catheter, right arm fistula, possible dialysis graft. She does not want to have peritoneal dialysis. The dialysis center can, however, inspect her home and discuss with her peritoneal dialysis for future consideration and this could be done later date should she change her mind and her home considered to be safe for peritoneal dialysis. Today, we will proceed with placement of a hemodialysis catheter and a right arm dialysis fistula or graft. We will do this under regional anesthesia, now that peritoneal dialysis is not going to be done. Job ID: [id number]
--- NOTE | 2018-09-21 15:54 | PDOC.CTH ---
Cardiology Progress Note - Subjective Pt. seen and eval. by me. No new events. Feels better after dialysis. No edema or SOB. - Objective Vital Signs Temp Pulse Resp BP BP Pulse Ox 09/21/18 11:45 97.7 F 83 18 137/61 98 09/21/18 07:29 75 14 90 L 09/21/18 07:12 98.8 F 91 17 132/72 94 L 09/21/18 07:10 94 L Admit Weight 130 lb 3.2 oz Weight 130 lb 3.2 oz 09/20/18 09/21/18 09/22/18 06:59 06:59 06:59 Intake Total 240 1220 Output Total 1999 1510 Balance -1760 -290 - Physical Examination General/Neuro: alert & oriented x3 Neck: no JVD present Lungs: CTA, unlabored respirations Heart: RRR Abdomen: soft - Labs Result Diagrams: 09/18/18 05:04 09/21/18 06:35 Troponin/CKMB CK-MB (CK-2) 8.2 ng/mL (0-6.6) H* 09/17/18 13:35 Troponin I 0.101 ng/mL (< 0.028) H 09/17/18 20:23 - Assessment/Plan 1. ESRD - Plan for PD cath and tunnel cath placement today, 09/21/2018; holding Brilinta and ASA since 09/18/2018. 2. Acute on Chronic Systolic HF - Now EF 40-45% which EF 30-35% in 07/2018; stable with RA and HD; 3. Bilat Pleural effusion - stable with RA and HD 4. HTN - stable with current med 5. Hyperlipidemia - on Statin 6. IDDM - managed by PCP 7. Anemia - stable 8. CAD - stable. MAR reviewed * Echo on 09/19/2018 showed EF 40-45%, mild-mod MR, mild-mod TR, mild ID, and mod bilat pleural effusion. The AV fistula was placed today in the right arm. She has thickened lee of the veins and will need to undergo further fistula surgery after the initial fistula is developed. The cephalic vein will need to be repositioned in order to allow for access. The tunneled cath in the right subclavian looks good. The right femoral temporary cath will be removed likely tomorrow. Her cardiac status is stable.. Likely home in 2-3 days.
[2018-09-21] MEDS: traMADol HCl 50 MG TAB PO PRN ×2 (17:27→23:32)
[2018-09-21] MEDS: Atorvastatin Calcium 40 MG TAB PO SCH (17:28)
--- NOTE | 2018-09-21 17:38 | PRG ---
DATE OF SERVICE: 09/21/2018 SERVICE: Pulmonary Medicine. INTERVAL HISTORY: The patient is doing fine from respiratory standpoint. Breathing comfortably. Denies any current chest pain, fevers, or chills. Otherwise, there has been no change to her condition. Currently, she is on dialysis. She has absolutely no complaints other than some chest wall discomfort associated with her catheter. PHYSICAL EXAMINATION: VITAL SIGNS: Afebrile, pulse 83, blood pressure 137/61, respirations 18, and saturation 98% on 2 L nasal cannula. GENERAL: The patient is awake and alert, in no apparent distress. LUNGS: Decent air entry. Crackles are present dependently. No prolonged expiratory phase or wheezing is present. HEART: Normal rate and regular. ABDOMEN: Soft, nontender, and nondistended. Bowel sounds are positive. MUSCULOSKELETAL: No cyanosis or clubbing. No pitting in the bilateral lower extremities. NEUROLOGIC: Grossly nonfocal. LABORATORY DATA: Creatinine 3.84 and BUN 36. Basic metabolic profile is otherwise unremarkable. Magnesium is normal. Phosphorus is at the upper limits of normal. ASSESSMENT: 1. Acute hypoxic respiratory failure, improving. 2. Chronic obstructive pulmonary disease, possible. 3. End-stage renal disease. 4. Acute on chronic systolic heart failure. 5. Pleural effusion on the left, status post previous thoracentesis demonstrating an absolute transudate. DISCUSSION AND PLAN: The patient is doing fine from respiratory standpoint. We will continue to optimize her fluid status with dialysis. At this point, she has no further requirements for inpatient Pulmonary or Critical Care opinion, and I will sign off. Please call with additional questions or concerns through time. Job ID: [id number]
[2018-09-21] MEDS: Sodium Chloride 0.65% Nasal 44 ML BOT EA NARE PRN (20:21)
[2018-09-21] MEDS ORDERED: Bisacodyl 10 MG SUPP PR PRN (23:40)
[2018-09-22] MEDS: traMADol HCl 50 MG TAB PO PRN ×3 (04:32→17:02)
[2018-09-22] MEDS: Acetaminophen 500 MG TAB PO PRN (07:48)
[2018-09-22] MEDS: Carvedilol 6.25 MG TAB PO SCH ×2 (07:48→17:02)
[2018-09-22] MEDS: Atorvastatin Calcium 40 MG TAB PO SCH (08:29)
[2018-09-22] MEDS: Gabapentin 100 MG CAP PO SCH ×2 (08:29→21:22)
[2018-09-22] MEDS: Amlodipine 5 MG TAB PO SCH (08:30)
[2018-09-22] MEDS: Senokot S 8.6-50 MG TAB PO SCH ×2 (08:30→21:21)
--- NOTE | 2018-09-22 09:18 | PDOC.CTH ---
Cardiology Progress Note - Subjective The pt seen and examined. No overnight events. No cardiac complaints. - Objective Vital Signs Temp Pulse Resp BP Pulse Ox 09/22/18 07:01 89 16 93 L 09/22/18 04:25 98.2 F 88 16 155/82 H 93 L 09/22/18 00:08 82 18 97 09/21/18 23:34 98.0 F 85 18 164/83 H 98 Admit Weight 130 lb 3.2 oz Weight 130 lb 3.2 oz 09/21/18 09/22/18 09/23/18 06:59 06:59 06:59 Intake Total 1220 1230 Output Total 1510 Balance -290 1230 - Physical Examination General/Neuro: alert & oriented x3 Neck: no JVD present Lungs: CTA Heart: RRR Abdomen: soft Extremities: other: (No edema) - Telemetry Telemetry Rhythm: SR - Labs Result Diagrams: 09/18/18 05:04 09/22/18 08:18 Troponin/CKMB CK-MB (CK-2) 8.2 ng/mL (0-6.6) H* 09/17/18 13:35 Troponin I 0.101 ng/mL (< 0.028) H 09/17/18 20:23 - Assessment/Plan 1. ESRD - S/p tunnel cath and Rt AV fistula placemen on 09/21/2018; The cephalic vein will need to be repositioned in order to allow for access in 3 wks. holding Brilinta and ASA. 2. Acute on Chronic Systolic HF - Now EF 40-45% which EF 30-35% in 07/2018; stable with RA and HD; 3. Bilat Pleural effusion - stable with RA and HD 4. HTN - Increase coreg from 6.25mg to 12.5mg BID from this AM 5. Hyperlipidemia - on Statin 6. IDDM - managed by PCP 7. Anemia - stable 8. CAD - stable. MAR reviewed * Echo on 09/19/2018 showed EF 40-45%, mild-mod MR, mild-mod TR, mild MO, and mod bilat pleural effusion. Pt. seen and eval. by me. I agree with the A/P by the LEGAL OFFICE ADMINISTRATOR. Cardiac status is stable. I will sign off. f/u in the office in 2-4 weeks. Review of Systems - Review of Systems Constitutional: reports: no symptoms reported EENTM: reports: no symptoms reported Respiratory: reports: no symptoms reported Cardiac (ROS): reports: no symptoms reported ABD/GI: reports: no symptoms reported : reports: no symptoms reported Musculoskeletal: reports: no symptoms reported
[2018-09-22 09:21] LABS: Phosphorus 5.3 mg/dL (2.3-4.7)
[2018-09-22 09:23] LABS: Anion Gap 13 mmol/L (10-20); BUN (Urea Nitrogen) 24 mg/dL (9.8-20.1); Calc. Creatinine Clearance 22 mL/min (70-130); Calcium 8.7 mg/dL (7.8-10.44); Carbon Dioxide 28 mmol/L (22-29); Chloride 99 mmol/L (98-107); Estimated GFR-MDRD 18; Glucose 275 mg/dL (70-105); Magnesium 2.1 mg/dL (1.6-2.6); Sodium 136 mmol/L (136-145)
[2018-09-22] MEDS ORDERED: Carvedilol 6.25 MG TAB PO SCH (10:00)
--- NOTE | 2018-09-22 12:47 | PRG ---
DATE OF SERVICE: 09/22/2018 SUBJECTIVE: A 52-year-old female, being seen for end-stage renal disease. The patient denies any nausea, vomiting, or chest pain. OBJECTIVE: CONSTITUTIONAL: The patient is awake and alert. VITAL SIGNS: Afebrile. Pulse 82, breathing 16, and blood pressure 118/65. GENERAL APPEARANCE AND MENTAL STATUS: Fair. HEAD/NECK: Normocephalic. Atraumatic. EYES: EOMI. No deformity. EARS: Clear. No ulcers. NOSE: Intact. No lesions. MOUTH: Clear. No discharge. THROAT: Clear. No exudate. LUNGS: Clear. No crackles. CARDIAC: S1, S2. No rub. ABDOMEN: Benign. Bowel sounds positive. GENITALIA/RECTUM: Loo absent. BACK/EXTREMITIES: Edema 0+. NEUROLOGICAL: Alert and motor intact. SKIN: LYMPHATICS: LABORATORY DATA: Reviewed. ASSESSMENT: 1. Stage 6 chronic kidney disease. Continue hemodialysis. 2. Hypertension, stable. 3. Anemia, stable. 4. Medication based on GFR appropriate. Job ID: [id number]
[2018-09-22] MEDS ORDERED: Sodium Chloride 0.65% Nasal 44 ML BOT EA NARE PRN (13:18)
--- NOTE | 2018-09-22 15:14 | PQF ---
TESSA GARRETT ROHAN MD [id number] [id number] CLINICAL DOCUMENTATION IMPROVEMENT CLARIFICATION FORM: ICD-10 Updated PLEASE DO AN ADDENDUM TO THE PROGRESS NOTE WITH ANY DOCUMENTATION UPDATES OR ADDITIONS AND CARRY THROUGH TO DC SUMMARY. THANK YOU. DATE: 09/22/2018 ATTN: DR. CRISTINA Please exercise your independent, professional judgment in responding to the clarification form. Clinical indicators are provided on the bottom of this form for your review Please check appropriate box(s): [ ] Acute Respiratory Failure: [ ] with Hypoxia[ ] with Hypercapnia [ ] Acute On Chronic Respiratory Failure: [ ] with Hypoxia [ ] with Hypercapnia [ ] Hypoxia [ ] Other diagnosis [ ] Unable to determine In addition, please specify: Present on Admission (POA): [ ] Yes [ ] No [ ] Unable to determine For continuity of documentation, please document condition throughout progress notes and discharge summary. Thank You. CLINICAL INDICATORS - SIGNS / SYMPTOMS / LABS: 09/17-ER: FEELS SHORT OF BREATH. RALES TO BLL. SAT 84%-ORA BUT 92% ON 2L. JUAREZ. UNABLE TO LAY FLAT. 09/18-H&P: MILD RESP DISTRESS NOTED. 09/18-CXR: LEFT PLEURAL EFFUSION WITH ADJACENT ATELECTASIS VS INFILTRATE. RISK FACTORS: Hx COPD, CHF, CKD COPD exacerbation / Asthma CHF exacerbation Former tobacco abuse CVA TREATMENTS: Oxygen Monitoring of oxygenation status Respiratory treatments Diuresis Thank you, Sarah (This form is maintained as a part of the permanent medical record) 2014 [employer]. All Rights Reserved Sarah Navarrete RN, CDIS [email or web address] [phone] MTDÓscar
--- NOTE | 2018-09-22 16:08 | PRG ---
DATE OF SERVICE: 09/22/2018 SUBJECTIVE: Ms. Kaba is doing well. She has a good thrill and bruit in her right arm fistula. She will need a basilic vein transposition fistula in the next 3 to 4 weeks. She should exercise and use her arm unrestricted. She should exercise it diligently. She should follow up in my office in 3 to 4 weeks. Avoid IV access or blood draws above both wrists and in the right arm. I will see her as needed in this hospitalization. Job ID: [id number]
[2018-09-22] MEDS: Morphine 2 MG/ML SYRINGE SLOW IVP PRN (19:02)
[2018-09-22] MEDS: Ondansetron PF 4 MG/2 ML Vial SLOW IVP PRN (19:02)
--- NOTE | 2018-09-22 20:11 | PDOC.PN ---
- Subjective Encounter Start Date: 09/22/18 Encounter Start Time: 18:00 Subjective: f/u for ESRD with HD, pleural effusions and s/p RUE AV fistula placement -: States some RUE pain when bending the elbow. SOB resolved. - Objective Resuscitation Status - Order Detail: 09/17/18 20:28 Resuscitation Status Routine Resuscitation Status: FULL: Full Resuscitation Discussed with: patient MAR Reviewed: Yes Vital Signs & Weight: Vital Signs (12 hours) Temp Pulse Resp BP Pulse Ox 09/22/18 19:45 98.3 F 81 16 121/69 99 09/22/18 19:09 82 16 94 L 09/22/18 16:50 97.6 F 87 17 139/82 96 09/22/18 12:11 85 18 94 L 09/22/18 11:27 99.7 F H 82 18 118/65 95 Weight Admit Weight 130 lb 3.2 oz Weight 130 lb 3.2 oz I&O: 09/21/18 09/22/18 09/23/18 06:59 06:59 06:59 Intake Total 1220 1230 720 Output Total 1510 Balance -290 1230 720 Result Diagrams: 09/18/18 05:04 09/22/18 08:18 Additional Labs: Accuchecks 09/22/18 09/22/18 09/22/18 16:48 11:00 05:33 POC Glucose 207 H 217 H 290 H 09/21/18 20:24 POC Glucose 275 H Laboratory Tests 09/17/18 09/17/18 09/17/18 13:35 13:35 15:51 Hgb 10.7 L Creatinine 4.36 H Phosphorus Magnesium Hep Bs Antigen Non-Reactive Hep Bs Antibody Non-Reactive Hep Bs Antibody Index 1.77 Hep B Core Total Ab Non-Reactive Hepatitis C Antibody Non-Reactive 09/18/18 09/20/18 09/21/18 05:04 13:20 06:35 Hgb Creatinine 4.17 H 3.51 H 3.84 H Phosphorus Magnesium Hep Bs Antigen Hep Bs Antibody Hep Bs Antibody Index Hep B Core Total Ab Hepatitis C Antibody 09/22/18 09/22/18 08:18 08:18 Hgb Creatinine Phosphorus 5.3 H Magnesium 2.1 Hep Bs Antigen Hep Bs Antibody Hep Bs Antibody Index Hep B Core Total Ab Hepatitis C Antibody EKG Reviewed by me: Yes (Tele - SR) Phys Exam - Physical Examination Constitutional: NAD HEENT: PERRLA, sclera anicteric, oral pharynx no lesions R IJ HD catheter in place Neck: no nodes, no JVD, supple, full ROM few exp wheezes Respiratory: no rhonchi S1, S2 Cardiovascular: RRR, no significant murmur, no rub, gallop Gastrointestinal: soft, non-tender, no distention, positive bowel sounds RUE with edema/ecchymosis in antecubital fossa, no palpable thrill N/V intact distally Musculoskeletal: pulses present, edema present Neurological: normal sensation, moves all 4 limbs Psychiatric: A&O x 3 Skin: normal turgor, cap refill <2 seconds Dx/Plan (1) ESRD needing dialysis Code(s): N18.6 - END STAGE RENAL DISEASE; Z99.2 - DEPENDENCE ON RENAL DIALYSIS Status: Acute Comment: initiated this admission (2) Ischemic cardiomyopathy Code(s): I25.5 - ISCHEMIC CARDIOMYOPATHY Status: Chronic Comment: EF 40-45% , continue ASA, Brillinta, Coreg, Spironolactone (3) Peripheral neuropathy Code(s): G62.9 - POLYNEUROPATHY, UNSPECIFIED Status: Chronic Comment: Secondary to DM, continue Gabapentin 100mg BID (4) Tobacco abuse Code(s): Z72.0 - TOBACCO USE Status: Chronic Comment: Tobacco cessation resources (5) Type II diabetes mellitus Status: Chronic Comment: With ESRD, peripheral neuropathy, continue ISS, ADA - Plan plan discussed w/ family, social worker, out of bed/ambulate, DVT proph w/SCDs Stable currently -: HD per Renal service in am -: Outpt coordination for HD -: RUE with arm sling for comfort -: AM lab: BMP * Likely home 09/23/18
[2018-09-22] MEDS: Sodium Chloride 0.65% Nasal 44 ML BOT EA NARE PRN (21:16)
[2018-09-23 05:52] LABS: Anion Gap 13 mmol/L (10-20); BUN (Urea Nitrogen) 28 mg/dL (9.8-20.1); Calc. Creatinine Clearance 19 mL/min (70-130); Calcium 8.8 mg/dL (7.8-10.44); Carbon Dioxide 29 mmol/L (22-29); Chloride 98 mmol/L (98-107); Estimated GFR-MDRD 15; Glucose 191 mg/dL (70-105); Magnesium 2.1 mg/dL (1.6-2.6); Potassium 4.5 mmol/L (3.5-5.1); Sodium 135 mmol/L (136-145)
[2018-09-23 06:02] LABS: Phosphorus 6.5 mg/dL (2.3-4.7)
[2018-09-23] MEDS: Ondansetron PF 4 MG/2 ML Vial SLOW IVP PRN (08:17)
[2018-09-23] MEDS: traMADol HCl 50 MG TAB PO PRN ×2 (08:17→15:16)
[2018-09-23] MEDS: Senokot S 8.6-50 MG TAB PO SCH ×2 (08:18→20:56)
[2018-09-23] MEDS: Carvedilol 6.25 MG TAB PO SCH ×2 (08:18→21:01)
[2018-09-23] MEDS: Atorvastatin Calcium 40 MG TAB PO SCH (08:19)
[2018-09-23] MEDS: Gabapentin 100 MG CAP PO SCH ×2 (08:19→20:56)
[2018-09-23] MEDS: Amlodipine 5 MG TAB PO SCH (08:19)
[2018-09-23] MEDS ORDERED: Heparin 10,000 UNITS/ 10 ML VIAL ONE (11:11)
--- NOTE | 2018-09-23 11:53 | PRG ---
DATE OF SERVICE: 09/23/2018 SUBJECTIVE: A 52-year-old female, being seen for end-stage renal disease. The patient denies any nausea, vomiting, or chest pain. OBJECTIVE: See above. CONSTITUTIONAL: Awake, alert, in no acute distress. VITAL SIGNS: Afebrile. Pulse 87, breathing 16, and blood pressure 118/65. GENERAL APPEARANCE AND MENTAL STATUS: Fair. HEAD/NECK: Normocephalic. Atraumatic. EYES: EOMI. No deformity. EARS: Clear. No ulcers. NOSE: Intact. No lesions. MOUTH: Clear. No discharge. THROAT: Clear. No exudate. LUNGS: Clear. No crackles. CARDIAC: S1, S2. No rub. ABDOMEN: Benign. Bowel sounds positive. GENITALIA/RECTUM: Loo absent. BACK/EXTREMITIES: Edema 0+. NEUROLOGICAL: Alert and motor intact. SKIN: LYMPHATICS: LABORATORY DATA: Reviewed. ASSESSMENT AND PLAN: 1. Stage 6 chronic kidney disease. Continue hemodialysis. 2. Hypertension, stable. 3. Anemia, stable. 4. Medication based on GFR appropriate. Job ID: [id number]
--- NOTE | 2018-09-23 12:34 | DIS ---
DATE OF ADMISSION: 09/17/2018 DATE OF DISCHARGE: 09/23/2018 DISCHARGE DIAGNOSES: 1. End-stage renal disease with initiation of hemodialysis. 2. Ischemic cardiomyopathy with ejection fraction of 40% to 45%, compensated. 3. Diabetic peripheral neuropathy. 4. Tobacco abuse. 5. Diabetes mellitus type 2 with end-stage renal disease and peripheral neuropathy. 6. Coronary artery disease, chronic and stable. CONSULTATIONS: 1. Nakul Singh MD with Nephrology Service. 2. Concha Robledo MD with Cardiology Service. 3. Ye Blanc MD with General Surgery Service. PERTINENT LAB AND X-RAY FINDINGS: Creatinine ranged between 2.74 to 4.36. Estimated GFR ranged between 11 to 18, phosphorus ranged between 5.3 to 6.5. Magnesium level 2.1. CBC showed a white blood cell count ranged between 8.6 to 9.1, hemoglobin ranged between 10.7 to 11.9. Hepatitis B and C panel negative, 09/17/2018. Portable chest x-ray dated 09/17/2018 showed left pleural effusion with associated atelectasis. 2D transthoracic echocardiogram dated 09/19/2018, showed ejection fraction of 40% to 45%. [id number] mitral regurgitation. Ilfn-ay-[id number] tricuspid regurgitation. Moderate bilateral pleural effusions. HOSPITAL COURSE: The patient was initially admitted after presenting with increasing shortness of breath and chest pain. The patient underwent extensive evaluation including plain radiographic imaging showing evidence of bilateral pleural effusions in the context of worsening renal failure. The patient was evaluated by the Nephrology Service with recommendations to pursue hemodialysis due to worsening renal failure in the context of known chronic kidney disease stage 5. The patient underwent right femoral vein Trialysis catheter placement on 09/18/2018 and proceeded with hemodialysis throughout the hospital course. The patient also underwent right upper extremity AV fistula placement in preparation for long-term hemodialysis. The patient clinically stabilized in regard to pulmonary status with volume removal with hemodialysis. The patient was evaluated by the Case Management Service and coordinated for outpatient hemodialysis after discharge. The patient continued on her chronic antihypertensive regimen and vital signs remained stable through the hospital course. I have examined the patient at the time of discharge and discussed followup instructions. The patient verbalized understanding and agreement ready for discharge on 09/23/2018. DISCHARGE MEDICATIONS: 1. Vitamin D3 of 1000 units p.o. daily. 2. Neurontin 100 mg p.o. t.i.d. 3. Humalog b.i.d. with meals. 4. Isosorbide mononitrate 120 mg p.o. daily. 5. Spironolactone 25 mg p.o. daily. 6. Norvasc 5 mg p.o. daily. 7. Lipitor 40 mg p.o. daily. 8. Coreg 12.5 mg p.o. b.i.d. 9. Feosol 325 mg p.o. b.i.d. 10. Protonix 40 mg p.o. daily. 11. Brilinta 90 mg p.o. b.i.d. 12. Tramadol 50 mg 1 to 2 tablets p.o. q.6 hours p.r.n. pain. FOLLOWUP: The patient will follow up with her primary care provider, Dr. Doris Connor, within 7 days of discharge. The patient will follow up with Dr. Blanc in 2 to 3 weeks after discharge. The patient will follow up with Dr. Concha Robledo with [facility] Cardiology Service. The patient will follow up with Dr. Singh and Phyllis for hemodialysis. CONDITION ON DISCHARGE: Fair. ACTIVITY: Ad-amara. DIET: ADA and heart healthy. CODE STATUS: Full. DISPOSITION: Home, 09/23/2018. TIME SPENT: Total time preparing and coordinating discharge, 35 minutes. Job ID: [id number]
--- NOTE | 2018-09-23 18:50 | PDOC.PN ---
- Subjective Encounter Start Date: 09/23/18 Encounter Start Time: 10:00 Subjective: f/u for ESRD with initiation of HD. Feels ok overall. RUE with some pain -: but improved in last 24h. Awaiting approval for outpt HD coordination. - Objective Resuscitation Status - Order Detail: 09/17/18 20:28 Resuscitation Status Routine Resuscitation Status: FULL: Full Resuscitation Discussed with: patient MAR Reviewed: Yes Vital Signs & Weight: Vital Signs (12 hours) Temp Pulse Resp BP Pulse Ox 09/23/18 14:00 90 18 09/23/18 12:55 97.8 F 89 18 159/76 H 96 09/23/18 08:30 97.9 F 87 18 97 09/23/18 07:42 95 09/23/18 07:40 87 16 95 Weight Admit Weight 130 lb 3.2 oz Weight 130 lb 3.2 oz I&O: 09/22/18 09/23/18 09/24/18 06:59 06:59 06:59 Intake Total 1230 1200 Balance 1230 1200 Result Diagrams: 09/18/18 05:04 09/23/18 04:59 Additional Labs: Accuchecks 09/23/18 09/23/18 09/22/18 10:43 06:16 20:53 POC Glucose 171 H 177 H 170 H Laboratory Tests 09/17/18 09/17/18 09/17/18 13:35 13:35 15:51 Hgb 10.7 L Creatinine 4.36 H Phosphorus Magnesium Hep Bs Antigen Non-Reactive Hep Bs Antibody Non-Reactive Hep Bs Antibody Index 1.77 Hep B Core Total Ab Non-Reactive Hepatitis C Antibody Non-Reactive 09/18/18 09/20/18 09/21/18 05:04 13:20 06:35 Hgb Creatinine 4.17 H 3.51 H 3.84 H Phosphorus Magnesium Hep Bs Antigen Hep Bs Antibody Hep Bs Antibody Index Hep B Core Total Ab Hepatitis C Antibody 09/22/18 09/22/18 08:18 08:18 Hgb Creatinine Phosphorus 5.3 H Magnesium 2.1 Hep Bs Antigen Hep Bs Antibody Hep Bs Antibody Index Hep B Core Total Ab Hepatitis C Antibody EKG Reviewed by me: Yes (Tele - SR) Phys Exam - Physical Examination Constitutional: NAD HEENT: PERRLA, sclera anicteric, oral pharynx no lesions Neck: no nodes, no JVD, supple, full ROM Respiratory: no wheezing, no rales, no rhonchi, clear to auscultation bilateral S1, S2 Cardiovascular: RRR, no significant murmur, no rub, gallop Gastrointestinal: soft, non-tender, no distention, positive bowel sounds RUE with AV fistula in place, + edema Musculoskeletal: pulses present, edema present Neurological: normal sensation, moves all 4 limbs Psychiatric: A&O x 3 Skin: normal turgor, cap refill <2 seconds Dx/Plan (1) ESRD needing dialysis Code(s): N18.6 - END STAGE RENAL DISEASE; Z99.2 - DEPENDENCE ON RENAL DIALYSIS Status: Acute Comment: initiated this admission, coordination for oupt HD pending, HD session today (2) Ischemic cardiomyopathy Code(s): I25.5 - ISCHEMIC CARDIOMYOPATHY Status: Chronic Comment: EF 40-45% , continue ASA, Brillinta, Coreg, Spironolactone, compensated (3) Peripheral neuropathy Code(s): G62.9 - POLYNEUROPATHY, UNSPECIFIED Status: Chronic Comment: Secondary to DM, continue Gabapentin 100mg BID (4) Tobacco abuse Code(s): Z72.0 - TOBACCO USE Status: Chronic Comment: Tobacco cessation resources (5) Type II diabetes mellitus Status: Chronic Comment: With ESRD, peripheral neuropathy, continue ISS, ADA - Plan plan discussed w/ family, [employer] social worker, out of bed/ambulate Stable currently -: HD session for today -: CM assisting with outpt coordination for HD -: Continue ASA, Lipitor, Coreg -: Likely home in am * .
[2018-09-23] MEDS: Morphine 2 MG/ML SYRINGE SLOW IVP PRN (20:56)
[2018-09-23] MEDS: Sodium Chloride 0.65% Nasal 44 ML BOT EA NARE PRN (21:00)
[2018-09-24 06:04] LABS: Anion Gap 13 mmol/L (10-20); BUN (Urea Nitrogen) 15 mg/dL (9.8-20.1); Calc. Creatinine Clearance 25 mL/min (70-130); Calcium 8.2 mg/dL (7.8-10.44); Carbon Dioxide 26 mmol/L (22-29); Chloride 100 mmol/L (98-107); Estimated GFR-MDRD 20; Glucose 155 mg/dL (70-105); Potassium 3.7 mmol/L (3.5-5.1); Sodium 135 mmol/L (136-145)
[2018-09-24 06:06] LABS: Phosphorus 4.8 mg/dL (2.3-4.7)
[2018-09-24 07:37] VITALS: TEMP 98.7
[2018-09-24] MEDS: traMADol HCl 50 MG TAB PO PRN (08:19)
[2018-09-24] MEDS: Atorvastatin Calcium 40 MG TAB PO SCH (08:19)
[2018-09-24] MEDS: Senokot S 8.6-50 MG TAB PO SCH (08:19)
[2018-09-24] MEDS: Gabapentin 100 MG CAP PO SCH (08:19)
[2018-09-24] MEDS: Amlodipine 5 MG TAB PO SCH (08:20)
[2018-09-24] MEDS: Carvedilol 6.25 MG TAB PO SCH (08:20)
--- NOTE | 2018-09-24 10:27 | DIS ---
DATE OF ADMISSION: 09/17/2018 DATE OF DISCHARGE: 09/24/2018 ADDENDUM: HOSPITAL COURSE: The patient's discharge was held approximately 24 hours due to final coordination for outpatient hemodialysis. The patient remained clinically stable over the last 24 hours without complication or decompensation. Current plans are to continue outpatient hemodialysis on Friday, Friday, and Friday after discharge. Please see dictated details in previous discharge summary dated 09/23/2018. Job ID: [id number]
--- NOTE | 2018-09-24 11:09 | PRG ---
DATE OF SERVICE: 09/24/2018 SUBJECTIVE: A 52-year-old female being seen for end-stage renal disease. The patient denies any nausea, vomiting, or chest pain. OBJECTIVE: CONSTITUTIONAL: The patient is awake and alert. VITAL SIGNS: Afebrile, pulse 75, breathing 16, and blood pressure 133/68. GENERAL APPEARANCE AND MENTAL STATUS: Fair. HEAD/NECK: Normocephalic. Atraumatic. EYES: EOMI. No deformity. EARS: Clear. No ulcers. NOSE: Intact. No lesions. MOUTH: Clear. No discharge. THROAT: Clear. No exudate. LUNGS: Clear. No crackles. CARDIAC: S1, S2. No rub. ABDOMEN: Benign. Bowel sounds positive. GENITALIA/RECTUM: Loo absent. BACK/EXTREMITIES: Edema 0+. NEUROLOGICAL: Alert and motor intact. SKIN: LYMPHATICS: LABORATORY DATA: Reviewed. ASSESSMENT AND PLAN: 1. Stage 6 chronic kidney disease. Continue hemodialysis. 2. Hypertension, stable. 3. Anemia, stable. 4. Medication based on GFR appropriate. Job ID: [id number]
[2018-09-24 11:33] VITALS: BP 113/61
== END 2018-09-24 12:15 | disposition home or self-care (01) | DRG 673 ==
LOC: ERS 12:53 → 2NO 19:28
PROVIDERS: ADMIT Family Medicine; ATTEND Family Medicine
PROC: 06HM33Z Insertion of Infusion Device into Right Femoral Vein, Percutaneous Approach (ICD-10-PCS; 2018-09-18)
PROC: 5A1D70Z Performance of Urinary Filtration, Intermittent, Less than 6 Hours Per Day (ICD-10-PCS; 2018-09-19)
PROC: 0JH63XZ Insertion of Tunneled Vascular Access Device into Chest Subcutaneous Tissue and Fascia, Percutaneous Approach (ICD-10-PCS; principal; 2018-09-21)
PROC: 05HM33Z Insertion of Infusion Device into Right Internal Jugular Vein, Percutaneous Approach (ICD-10-PCS; 2018-09-21)
PROC: B543ZZA Ultrasonography of Right Jugular Veins, Guidance (ICD-10-PCS; 2018-09-21)
PROC: 5A1D70Z Performance of Urinary Filtration, Intermittent, Less than 6 Hours Per Day (ICD-10-PCS; 2018-09-23)
DX: N17.9 Acute kidney failure, unspecified (principal); I50.23 Acute on chronic systolic (congestive) heart failure; J96.01 Acute respiratory failure with hypoxia; I13.2 Hypertensive heart and chronic kidney disease with heart failure and with stage 5 chronic kidney disease, or end stage renal disease; N18.6 End stage renal disease; E11.22 Type 2 diabetes mellitus with diabetic chronic kidney disease; E11.42 Type 2 diabetes mellitus with diabetic polyneuropathy; I25.10 Atherosclerotic heart disease of native coronary artery without angina pectoris; E03.9 Hypothyroidism, unspecified; I25.5 Ischemic cardiomyopathy; E78.5 Hyperlipidemia, unspecified; D63.1 Anemia in chronic kidney disease; E88.09 Other disorders of plasma-protein metabolism, not elsewhere classified; J44.9 Chronic obstructive pulmonary disease, unspecified; F17.290 Nicotine dependence, other tobacco product, uncomplicated; Z95.5 Presence of coronary angioplasty implant and graft; Z79.82 Long term (current) use of aspirin; Z79.4 Long term (current) use of insulin; Z79.899 Other long term (current) drug therapy; Z88.8 Allergy status to other drugs, medicaments and biological substances; Z96.41 Presence of insulin pump (external) (internal); Z79.02 Long term (current) use of antithrombotics/antiplatelets; Z83.3 Family history of diabetes mellitus; Z82.49 Family history of ischemic heart disease and other diseases of the circulatory system; I25.2 Old myocardial infarction; Z86.73 Personal history of transient ischemic attack (TIA), and cerebral infarction without residual deficits
CPT/HCPCS: 36415; 36416; 71045; 80048; 80053; 82550; 82553; 83735; 84100; 84484; 85025; 86580; 86704; 86706; 86803; 87340; 90471; 90732; 90935; 93005; 93306; 93798; 93970; 94640; C1752; C1769; G0009; G0257; G0365; J0670; J1642; J1644; J1825; J1940; J2001; J2250; J2270; J2405; J2704; J2720; J3010; J3490; J7620; Q9967

== ENCOUNTER 2018-09-26 10:48 | Emergency (ER) | payer OTHER ==
[2018-09-26 11:25] LABS: #Basophils 0.1 thou/uL (0.0-0.2); #Eosinphils 0.1 thou/uL (0.0-0.7); #Lymphocytes 1.2 thou/uL (1.20-3.40); #Monocytes 0.5 thou/uL (0.11-0.59); #Neutrophils 9.1 thou/uL (1.40-6.50); %Basophils 0.5 % (0.0-1.0); %Eosinophils 1.4 % (0.0-10.0); %Lymphocytes 10.5 % (21.0-51.0); %Monocytes 4.7 % (0.0-10.0); %Neutrophils 82.9 % (42.0-75.0); Hemoglobin 11.2 g/dL (12.0-16.0); Mean Corpuscular HGB CONC 32.2 g/dL (32.0-36.0); Mean Corpuscular Hemoglobin 27.7 pg (27.0-31.0); Mean Corpuscular Volume 86.1 fL (78.0-98.0); Mean Platelet Volume 8.5 fL (7.4-10.4); Platelet Count 305 thou/uL (130-400); RBC Distribution Width 13.8 % (11.5-14.5); Red Blood Cell (RBC) Count 4.04 mill/uL (4.20-5.40); White Blood Cell (WBC) Count 10.9 thou/uL (4.8-10.8)
[2018-09-26] MEDS ORDERED: Ondansetron PF 4 MG/2 ML Vial ONE (11:33)
[2018-09-26] MEDS ORDERED: Morphine 4 MG/ML VIAL ONE (11:33)
[2018-09-26 11:45] LABS: Phosphorus 4.4 mg/dL (2.3-4.7)
[2018-09-26 11:47] LABS: ALT (SGPT) 80 U/L (8-55); AST (SGOT) 86 U/L (5-34); Albumin 3.2 g/dL (3.5-5.0); Alkaline Phosphatase 149 U/L (40-150); Anion Gap 24 mmol/L (10-20); BUN (Urea Nitrogen) 23 mg/dL (9.8-20.1); Bilirubin, Total 0.6 mg/dL (0.2-1.2); Calc. Creatinine Clearance 0 mL/min (70-130); Carbon Dioxide 23 mmol/L (22-29); Chloride 94 mmol/L (98-107); Estimated GFR-MDRD 16; Globulin 3.6 g/dL (2.4-3.5); Glucose 197 mg/dL (70-105); Magnesium 1.9 mg/dL (1.6-2.6); Potassium 3.7 mmol/L (3.5-5.1); Protein, Total 6.8 g/dL (6.0-8.3); Sodium 137 mmol/L (136-145)
[2018-09-26 12:09] LABS: CKMB 3.1 ng/mL (0-6.6)
--- NOTE | 2018-09-26 13:21 | ULT ---
FDoppler arterial evaluation of a right antecubital fossa fistulous graft INDICATION: Recent establishment of a dialysis fistula in the right antecubital fossa with severe rig ht arm pain. The patient was placed on September 21, 2018 FINDINGS: I was present during the real-time ultrasound examination. Real-time examination demonstrat ed appropriate flow within the right brachial artery as well as the right basilic vein involved in th e dialysis fistula. Appropriate flow is seen within the right radial and ulnar artery as well as the right cephalic vein. There are prominent hematomas seen adjacent to the brachial basilic fistula with out definite evidence of a pseudoaneurysm. One of the largest hematomas is seen distal to the fistula within the proximal volar right forearm measuring 4.5 x 2.4 cm. An additional enlarged hematoma is s een within the distal right arm just lateral and slightly superior to the anastomosis site measuring 2.1 x 2.7 cm. IMPRESSION: Prominent hematomas adjacent to the brachial-basilic dialysis fistula. 2 prominent areas of hematoma are seen within the distal right arm as well as the proximal volar forearm. Findings were discussed with : At 1:10 PM on 09/26/2018. Recommend clinical follow-up for compartment syndrome.
== END 2018-09-26 13:48 | disposition home or self-care (01) ==
LOC: ERS 10:48
DX: G89.18 Other acute postprocedural pain (principal); M79.601 Pain in right arm; I25.10 Atherosclerotic heart disease of native coronary artery without angina pectoris; I12.0 Hypertensive chronic kidney disease with stage 5 chronic kidney disease or end stage renal disease; N18.6 End stage renal disease; K21.9 Gastro-esophageal reflux disease without esophagitis; Z99.2 Dependence on renal dialysis; E11.40 Type 2 diabetes mellitus with diabetic neuropathy, unspecified; E78.5 Hyperlipidemia, unspecified; Z86.73 Personal history of transient ischemic attack (TIA), and cerebral infarction without residual deficits; Z87.891 Personal history of nicotine dependence; Z79.899 Other long term (current) drug therapy
CPT/HCPCS: 36416; 80053; 82553; 83735; 84100; 84484; 85025; 93005; 93931; 96374; 96375; J2270; J2405

== ENCOUNTER 2018-09-27 11:18 | Emergency (ER) | payer OTHER ==
[2018-09-27 11:58] LABS: #Eosinphils 0.5 thou/uL (0.0-0.7); #Lymphocytes 0.9 thou/uL (1.20-3.40); #Monocytes 0.6 thou/uL (0.11-0.59); #Neutrophils 6.5 thou/uL (1.40-6.50); %Basophils 0.2 % (0.0-1.0); %Eosinophils 5.6 % (0.0-10.0); %Lymphocytes 10.8 % (21.0-51.0); %Monocytes 7.5 % (0.0-10.0); %Neutrophils 75.9 % (42.0-75.0); Hemoglobin 11.9 g/dL (12.0-16.0); Mean Corpuscular Hemoglobin 27.6 pg (27.0-31.0); Mean Corpuscular Volume 86.2 fL (78.0-98.0); Mean Platelet Volume 8.3 fL (7.4-10.4); Platelet Count 339 thou/uL (130-400); RBC Distribution Width 14.1 % (11.5-14.5); Red Blood Cell (RBC) Count 4.32 mill/uL (4.20-5.40); White Blood Cell (WBC) Count 8.5 thou/uL (4.8-10.8)
[2018-09-27 12:20] LABS: ALT (SGPT) 106 U/L (8-55); AST (SGOT) 89 U/L (5-34); Albumin 3.6 g/dL (3.5-5.0); Alkaline Phosphatase 151 U/L (40-150); Anion Gap 15 mmol/L (10-20); BUN (Urea Nitrogen) 37 mg/dL (9.8-20.1); Bilirubin, Total 0.7 mg/dL (0.2-1.2); Calc. Creatinine Clearance 0 mL/min (70-130); Calcium 9.2 mg/dL (7.8-10.44); Carbon Dioxide 32 mmol/L (22-29); Chloride 93 mmol/L (98-107); Estimated GFR-MDRD 11; Globulin 3.7 g/dL (2.4-3.5); Glucose 156 mg/dL (70-105); Potassium 3.1 mmol/L (3.5-5.1); Protein, Total 7.3 g/dL (6.0-8.3); Sodium 137 mmol/L (136-145)
[2018-09-27 12:50] LABS: Bilirubin Small (Negative); Blood, Urine Large (Negative); Clarity TURBID (Clear); Glucose, Urine (Dipstick) Negative (Negative); Leukocyte Small (Negative); Nitrite Negative (Negative); Protein, Urine (Dipstick) > or equal to 300 mg/dL (Neg-Trace); Specific Gravity, Urine 1.025 (1.002-1.036); Urobilinogen 0.2 mg/dL (0.2-1.0); pH, Urine 5.5 (5.0-9.0)
[2018-09-27 12:51] LABS: Hyaline Casts/LPF 4-6 HYALINE CAST LPF (0-3 Hyaline); Pathc Cast-AUWi Flag 1.02 (0-2.49); Squamous Epithelial 0-3 HPF (0-3)
[2018-09-27 13:18] LABS: Bacteria/HPF 4+ HPF (None Seen); WBC/HPF 21-50 HPF (0-3)
== END 2018-09-27 14:13 | disposition home or self-care (01) ==
LOC: ERS 11:18
DX: E11.649 Type 2 diabetes mellitus with hypoglycemia without coma (principal); N39.0 Urinary tract infection, site not specified; I12.0 Hypertensive chronic kidney disease with stage 5 chronic kidney disease or end stage renal disease; E11.22 Type 2 diabetes mellitus with diabetic chronic kidney disease; E11.40 Type 2 diabetes mellitus with diabetic neuropathy, unspecified; N18.6 End stage renal disease; E78.5 Hyperlipidemia, unspecified; I25.10 Atherosclerotic heart disease of native coronary artery without angina pectoris; K21.9 Gastro-esophageal reflux disease without esophagitis; D61.818 Other pancytopenia; F17.290 Nicotine dependence, other tobacco product, uncomplicated; Z86.73 Personal history of transient ischemic attack (TIA), and cerebral infarction without residual deficits; Z79.4 Long term (current) use of insulin; Z79.899 Other long term (current) drug therapy; Z99.2 Dependence on renal dialysis
CPT/HCPCS: 36415; 36416; 80053; 81003; 81015; 85025; 99406

== ENCOUNTER 2018-10-04 23:39 | Observation (INO) | payer OTHER ==
[2018-10-05 00:39] LABS: ALT (SGPT) 20 U/L (8-55); AST (SGOT) 11 U/L (5-34); Alkaline Phosphatase 123 U/L (40-150); Anion Gap 14 mmol/L (10-20); BUN (Urea Nitrogen) 33 mg/dL (9.8-20.1); Bilirubin, Total 0.3 mg/dL (0.2-1.2); Calc. Creatinine Clearance 0 mL/min (70-130); Calcium 8.4 mg/dL (7.8-10.44); Carbon Dioxide 27 mmol/L (22-29); Chloride 99 mmol/L (98-107); Estimated GFR-MDRD 12; Globulin 3.1 g/dL (2.4-3.5); Glucose 103 mg/dL (70-105); Protein, Total 6.1 g/dL (6.0-8.3); Sodium 136 mmol/L (136-145)
[2018-10-05 01:00] LABS: CKMB 2.8 ng/mL (0-6.6)
[2018-10-05] MEDS ORDERED: Cefepime 2 GM VIAL ONE (01:01)
[2018-10-05] MEDS ORDERED: diphenhydrAMINE 50 MG/ML VIAL ONE (01:01)
[2018-10-05 04:31] LABS: Troponin I 0.058 ng/mL (< 0.028)
[2018-10-05 07:19] LABS: Troponin I 0.071 ng/mL (< 0.028)
[2018-10-05] MEDS ORDERED: Dextrose 50% Abboject 50 ML SYRINGE SLOW IVP PRN (11:22)
[2018-10-05] MEDS ORDERED: Ondansetron ODT 4 MG TAB PO PRN (11:22)
[2018-10-05] MEDS ORDERED: Dextrose 5% in Water 1,000 ML IV PRN (11:22)
[2018-10-05] MEDS ORDERED: HumaLOG 300 UNITS/3 ML VIAL SC PRN ×2 (11:22)
[2018-10-05] MEDS ORDERED: Ondansetron PF 4 MG/2 ML Vial IVP PRN (11:22)
--- NOTE | 2018-10-05 12:37 | HP ---
PRIMARY CARE PROVIDER: Doris Connor DO PRIMARY HOG RAISER: Nakul Singh MD CHIEF COMPLAINT: General weakness and muscle twitching. HISTORY OF PRESENT ILLNESS: This is a 52-year-old female, who presents to [facility] after family noted the patient with increasing muscle twitching and jerking while seated. The patient has also been noted with increasing weakness and apparently sustained a fall at home according to the daughter. The patient needed assistance on standing up and getting back to her bed, and has been overall generally weak with episodes of staring into space and minimally responsive to family members in the room. No reported history of seizure disorders, but the muscle jerks have increased in the last several days. The daughter reports no specific change to her chronic medication regimen, but has noted several incidences of low glucose readings on her insulin pump ranging from the 50s to the low 70s. The patient's history is also significant for recent initiation of hemodialysis, undergoing a right upper extremity AV fistula placement with recent admission to [facility] between 09/18/2018 to 09/24/2018. The patient has been compliant with her hemodialysis sessions, receiving her last session on 10/02/2018. No specific documented fever, nausea, vomiting, or diarrhea reported. The patient has been compliant with her medication regimen confirmed by the daughter at the bedside. The daughter reports the muscle jerking and twitching seems to worsen with movement or positional changes. No specific report of bowel or bladder incontinence with these episodes. CT of the chest showed bilateral pleural effusions and portable chest imaging confirmed evidence of chronic effusions. The patient received azithromycin and vancomycin after concern for potential pneumonia. PAST MEDICAL HISTORY: 1. End-stage renal disease with current hemodialysis on Friday, Friday, and Friday. 2. Diabetes mellitus type 2 with insulin pump with peripheral neuropathy. 3. Coronary artery disease, status post cardiac stent placement x4. 4. Status post myocardial infarction, 2018. 5. Gastroesophageal reflux disease. 6. Hyperlipidemia. 7. Hypertension. 8. History of CVA with left-sided weakness. 9. Ischemic cardiomyopathy with ejection fraction of 40% to 45%. 10. Tobacco abuse. PAST SURGICAL HISTORY: 1. Status post right upper extremity AV fistula placement. 2. Status post section x2. 3. Status post cholecystectomy. 4. Status post hysterectomy. 5. Status post tunneled right hemodialysis catheter placement. 6. Status post cardiac stent placement x4. CURRENT MEDICATIONS: 1. Vitamin D3 of 1000 units p.o. daily. 2. Neurontin 100 mg p.o. t.i.d. 3. Isosorbide mononitrate 120 mg p.o. daily. 4. Amlodipine 5 mg p.o. daily. 5. Lipitor 40 mg p.o. daily. 6. Carvedilol 12.5 mg p.o. b.i.d. 7. Ferrous sulfate 325 mg p.o. b.i.d. 8. Protonix 40 mg p.o. daily. 9. Brilinta 90 mg p.o. b.i.d. 10. Ultram 50 mg 1 to 2 tablets p.o. q.6 hours p.r.n. pain. ALLERGIES: TO CAMPHOR, KEFLEX, CIPROFLOXACIN, HYDRALAZINE, LISPRO INSULIN. FAMILY HISTORY: Positive for hypertension and diabetes. SOCIAL HISTORY: The patient smokes cigarettes and E cigarettes. Occasional alcohol use. No illicit drug use. Lives with her daughter. REVIEW OF SYSTEMS: CONSTITUTIONAL: Negative for weight loss or gain, ability to conduct usual activities. SKIN: Negative for rash, itching. EYES: Negative for double vision, pain. ENT/MOUTH: Negative for nose bleeding, neck stiffness, pain, tenderness. CARDIOVASCULAR: Negative for palpitations, dyspnea on exertion, orthopnea. RESPIRATORY: Negative for shortness of breath, wheezing, cough, hemoptysis, fever or night sweats. GASTROINTESTINAL: Negative for poor appetite, abdominal pain, heartburn, nausea, vomiting, constipation, or diarrhea. GENITOURINARY: Negative for urgency, frequency, dysuria, nocturia. MUSCULOSKELETAL: Negative for pain, swelling. NEUROLOGIC/PSYCHIATRIC: Negative for anxiety, depression. ALLERGY/IMMUNOLOGIC: Negative for skin rash, bleeding tendency. Otherwise negative except as stated per HPI. PHYSICAL EXAMINATION: VITAL SIGNS: On admission, blood pressure 152/93, pulse 84, respiratory rate 20, temperature 98.7 degrees Fahrenheit, O2 saturation 88% on room air. GENERAL APPEARANCE: This is a 52-year-old female, opens eyes and has 1 to 2 word responses to questions, in mild distress. HEENT: Pupils are equal, round, and reactive to light and accommodation. Extraocular muscles intact. Nares patent. OP is clear. Teeth in poor repair. NECK: Supple. No cervical adenopathy. No thyromegaly. No carotid bruits. No JVD noted. CHEST: Diminished breath sounds in the bases bilaterally. CARDIOVASCULAR EXAM: S1 and S2 without murmur, rub, or gallop. ABDOMEN: Rounded, soft, nontender, and nondistended. Bowel sounds are positive in all 4 quadrants. No palpable mass. No rebound or guarding appreciated. EXTREMITIES: Warm and dry with fair turgor. Right upper extremity AV fistula in place with palpable thrill. Neurovascularly intact distally. Capillary refill is less than 2 seconds. No asymmetric edema appreciated. NEUROLOGIC: Cranial nerves 2 through 12 are grossly intact. No focal or lateralizing signs appreciated. Minimal fasciculations and myoclonic jerks noted on exam. PERTINENT LAB AND X-RAY FINDINGS: Sodium 136, potassium 4.0, chloride 99, CO2 of 27, anion gap 14, BUN 33, creatinine 3.86, estimated GFR of 12, glucose 103, calcium 8.4. Troponin I ranged between 0.058 to 0.073. Albumin 3.0. CBC showed hemoglobin 10, hematocrit 32, platelet count 374 with 63% neutrophils. EKG dated 10/05/2018 by my interpretation shows sinus mechanism, heart rates in the 80s. Normal R-wave progression noted in the precordial leads. Normal axis. No acute ST-T wave changes appreciated. Portable chest x-ray dated 10/04/2018, showed bilateral pleural effusions, left greater than right with associated atelectasis. CT of the chest dated 10/04/2018, showed moderate to large bilateral pleural effusions, left greater than right with associated consolidation and atelectasis. ASSESSMENT AND PLAN: 1. Myoclonic movements. The patient will be admitted to the stroke unit. Questionable seizure-like activity. We will check magnesium, TSH, ammonia levels. Check prolactin level and consult Neurology Service for evaluation. Check EEG to rule out focal seizure activity. Exact etiology unclear currently. Questionable metabolic influence. Serial glucose trending. 2. Acute metabolic encephalopathy. Suspect multifactorial. See #1 above. Check ammonia level and TSH. 3. End-stage renal disease with hemodialysis. We will consult Nephrology Service for continuation of maintenance hemodialysis. No specific evidence to suggest acute volume overload. 4. Coronary artery disease, chronic and stable. No current evidence to suggest acute coronary syndrome. Resume Brilinta 90 mg b.i.d. 5. Hypertension. Resume home antihypertensive regimen and monitor clinical response. 6. Prophylaxis. SCDs while in bed. Pepcid 20 mg p.o. b.i.d. PT evaluation for functional assessment. 7. Code status is full. Surrogate medical decision maker is the patient's daughter. Job ID: [id number]
--- NOTE | 2018-10-05 16:02 | EEG ---
Referring Physician: Diana NICOLE EEG # [id number] TEST TYPE: ROUTINE PORTABLE INPATIENT REPORT: AN EEG USING THE INTERNATIONAL TEN-TWENTY SYSTEM OF ELECTRODE PLACEMENT WAS PERFORMED. The best waking background is an occasional low amplitude 7-8 hertz frequency. The dominant background is a medium to high amplitude 5-6 hertz Theta frequency. Intermittent epileptiform appearing discharges were noted in a generalized distribution. There seemed to be bilateral phase-reversals occurring in the frontocentral regions. No sustained epileptiform events occurred. No sleep was seen. Photic stimulation was unremarkable. IMPRESSION: THIS IS AN ABNORMAL STUDY FOR THE FINDINGS OF DIFFUSE SLOWING WITH SOME INTERMIXED EPILEPTIFORM FEATURES SEEN IN A GENERALIZED DISTRIBUTION. CLINICAL CORRELATION IS INDICATED. 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
[2018-10-05] MEDS ORDERED: Heparin 10,000 UNITS/ 10 ML VIAL ONE (18:31)
[2018-10-05] MEDS ORDERED: Hydrocortisone 1% Cream 1.5 GM Packet TOP PRN (23:52)
[2018-10-06] MEDS: Famotidine 20 MG TAB PO SCH ×3 (00:01→21:05)
[2018-10-06] MEDS: TICAGRELOR 90 MG TABLET PO SCH ×3 (00:02→21:05)
[2018-10-06] MEDS ORDERED: Hydrocortisone 1% Cream 30 GM TUBE TOP PRN (00:45)
[2018-10-06 01:44] VITALS: BMI 20.8
[2018-10-06 06:15] LABS: Anion Gap 13 mmol/L (10-20); BUN (Urea Nitrogen) 15 mg/dL (9.8-20.1); Calc. Creatinine Clearance 29 mL/min (70-130); Calcium 7.9 mg/dL (7.8-10.44); Carbon Dioxide 27 mmol/L (22-29); Chloride 100 mmol/L (98-107); Estimated GFR-MDRD 25; Glucose 244 mg/dL (70-105); Potassium 4.1 mmol/L (3.5-5.1); Sodium 136 mmol/L (136-145)
[2018-10-06 06:24] LABS: Band 1 % (5-11); Eosinophils 3 % (0-10); Hemoglobin 9.8 g/dL (12.0-16.0); Lymphocytes 26 % (21-51); MDiff Complete? YES; Mean Corpuscular HGB CONC 31.3 g/dL (32.0-36.0); Mean Corpuscular Hemoglobin 27.6 pg (27.0-31.0); Mean Corpuscular Volume 88.1 fL (78.0-98.0); Mean Platelet Volume 8.1 fL (7.4-10.4); Monocytes 7 % (0-10); Neutrophil 63 % (42-75); Platelet Count 337 thou/uL (130-400); Platelet Morphology Comment Appears Adequate; Red Blood Cell (RBC) Count 3.53 mill/uL (4.20-5.40); White Blood Cell (WBC) Count 11.4 thou/uL (4.8-10.8)
--- NOTE | 2018-10-06 08:49 | CON ---
DATE OF CONSULTATION: 10/05/2018 CONSULTING PHYSICIAN: Dr. Marshall. REASON FOR CONSULT: ESRD HISTORY OF PRESENT ILLNESS: This is a 52-year-old white female with h/o ESRD, HTN, hyperlipidemia, came to the hospital with above complaints. The patient has dialysis Friday, Friday and Friday and Nephrology consulted. No chest pain or palpitation reported. No nausea, vomiting. PAST MEDICAL HISTORY: Positive for end-stage renal disease, type 2 diabetes, coronary artery disease, gastroesophageal reflux disease, hyperlipidemia, hypertension, CVA PAST SURGICAL HISTORY: dialysis access placement HOME MEDICATIONS: reviewed family h/o - no renal disease. SOCIAL HISTORY: No smoking, alcohol, or illicit drug abuse. REVIEW OF SYSTEMS: CONSTITUTIONAL: Negative for weight loss or gain, ability to conduct usual activities. SKIN: Negative for rash, itching. EYES: Negative for double vision, pain. ENT/MOUTH: Negative for nose bleeding, neck stiffness, pain, tenderness. CARDIOVASCULAR: Negative for palpitations, dyspnea on exertion, orthopnea. RESPIRATORY: Negative for shortness of breath, wheezing, cough, hemoptysis, fever or night sweats. GASTROINTESTINAL: Negative for poor appetite, abdominal pain, heartburn, nausea, vomiting, constipation, or diarrhea. GENITOURINARY: Negative for urgency, frequency, dysuria, nocturia. MUSCULOSKELETAL: Negative for pain, swelling. NEUROLOGIC/PSYCHIATRIC: Negative for anxiety, depression. ALLERGY/IMMUNOLOGIC: Negative for skin rash, bleeding tendency. PHYSICAL EXAMINATION: GENERAL: This is a well-built female, in no apparent distress. VITAL SIGNS: Temperature 98.9, pulse 80, respirations 16, blood pressure 125/ 73. HEENT: Atraumatic and normocephalic neck supple CVS s1s2 heard chest clear abd soft ext no edema neuro intact tremor present LABORATORY DATA: Potassium 4.0, BUN is 33, creatinine is 3.86. ASSESSMENT AND PLAN: 1. ESRD - on HD MWF as tolerated. 2. HTn - stable. 3. Edema, controlled. 4. Anemia - monitor Hb level. HD MWF as tolerated. Job ID: [id number] [facility]
[2018-10-06] MEDS: Carvedilol 6.25 MG TAB PO SCH ×3 (09:30→17:51)
[2018-10-06] MEDS ORDERED: HumaLOG 300 UNITS/3 ML VIAL SC PRN (10:02)
[2018-10-06] MEDS: Amlodipine 5 MG TAB PO SCH (10:47)
--- NOTE | 2018-10-06 15:25 | PRG ---
DATE OF SERVICE: 10/06/2018 SUBJECTIVE: Annalisa Kaba was admitted this hospitalization because of seizures. Dr. Yang has interpreted an EEG, performed yesterday noting generalized diffuse slowing with some intermixed epileptiform features seen in the generalized distribution. pending. The patient was to be seen in my office today, but she presented to the hospital for admission because of questionable seizure activity. The patient, on 09/21/2018, underwent right arm fistula placement with outflow basilic vein. Cephalic vein was fibrotic and occluded. Left upper arm cephalic vein thrombosed iatrogenic. The patient will need a basilic vein transposition fistula in the future. She dialyzes Friday, Friday, and Friday at [facility] in [place]. The patient's surgical wound looks good, has a small hematoma but this will resolve. There was good thrill and bruit in her right arm fistula. ASSESSMENT AND PLAN: We will see her as needed this hospitalization schedule outpatient right arm basilic vein transposition fistula in the next 3 to 4 weeks. Note, the patient is on Brilinta. We will need to hold the Plavix. She will need to hold her Brilinta a few days prior to surgery. She can continue her Plavix. Job ID: [id number]
[2018-10-06] MEDS: Gabapentin 100 MG CAP PO SCH ×2 (15:32→21:05)
--- NOTE | 2018-10-06 16:06 | PDOC.PN ---
- Subjective Encounter Start Date: 10/06/18 Encounter Start Time: 16:04 Subjective: reports that she does not feel well -: does not remeber much about yesterday - Objective Resuscitation Status - Order Detail: 10/05/18 11:14 Resuscitation Status Routine Resuscitation Status: FULL: Full Resuscitation MAR Reviewed: Yes Vital Signs & Weight: Vital Signs (12 hours) Temp Pulse Pulse Resp BP BP BP 10/06/18 11:45 98.6 F 72 16 10/06/18 10:47 72 145/80 H 10/06/18 09:50 74 156/82 H 148/82 H 10/06/18 09:30 159/82 H 10/06/18 07:52 98.8 F 80 16 BP Pulse Ox 10/06/18 11:45 145/80 H 97 10/06/18 10:47 10/06/18 09:50 10/06/18 09:30 10/06/18 07:52 167/84 H 97 Weight Weight 129 lb 3 oz I&O: 10/05/18 10/06/18 10/07/18 06:59 06:59 06:59 Intake Total 600 Balance 600 Result Diagrams: 10/06/18 05:29 10/06/18 05:29 Additional Labs: Accuchecks 10/06/18 10/06/18 06:02 00:45 POC Glucose 259 H 100 Microbiology 10/04/18 22:15 Venous blood - Left Hand Blood Culture - Preliminary Specimen has been received and culture in progress. No Growth to date. 10/04/18 22:00 Venous blood - Left Arm Blood Culture - Preliminary Specimen has been received and culture in progress. No Growth to date. Phys Exam - Physical Examination Constitutional: NAD pale and tired looking but alert HEENT: PERRLA, moist MMs, sclera anicteric, oral pharynx no lesions Neck: no nodes, no JVD, supple, full ROM Respiratory: no wheezing, no rales, no rhonchi, clear to auscultation bilateral Cardiovascular: RRR, no significant murmur Gastrointestinal: soft, non-tender, no distention, positive bowel sounds Musculoskeletal: no edema, pulses present Neurological: non-focal, normal sensation, moves all 4 limbs Psychiatric: normal affect, A&O x 3 Skin: no rash Dx/Plan (1) Seizure Code(s): R56.9 - UNSPECIFIED CONVULSIONS Status: Acute (2) ESRD needing dialysis Code(s): N18.6 - END STAGE RENAL DISEASE; Z99.2 - DEPENDENCE ON RENAL DIALYSIS Status: Chronic Comment: Started 08/2018 (3) Anemia, normocytic normochromic Code(s): D64.9 - ANEMIA, UNSPECIFIED Status: Chronic (4) CAD (coronary artery disease) Code(s): I25.10 - ATHSCL HEART DISEASE OF [place] CORONARY ARTERY W/O ANG PCTRS Status: Chronic Comment: EF 30-35% on ECHO in 07/2018 (5) HTN (hypertension) Code(s): I10 - ESSENTIAL (PRIMARY) HYPERTENSION Status: Chronic (6) Hyperlipidemia Code(s): E78.5 - HYPERLIPIDEMIA, UNSPECIFIED Status: Chronic (7) Ischemic cardiomyopathy Code(s): I25.5 - ISCHEMIC CARDIOMYOPATHY Status: Chronic Comment: EF 40-45% , continue ASA, Brillinta, Coreg, Spironolactone, compensated (8) Peripheral neuropathy Code(s): G62.9 - POLYNEUROPATHY, UNSPECIFIED Status: Chronic Comment: Secondary to DM, continue Gabapentin 100mg BID (9) Tobacco abuse Code(s): Z72.0 - TOBACCO USE Status: Chronic Comment: Tobacco cessation resources (10) Type II diabetes mellitus Status: Chronic Comment: With ESRD, peripheral neuropathy, continue ISS, ADA - Plan PT/OT, DVT proph w/SCDs EEG abnormal. cont keppra -: Neurology recs awaited. -: low grade fever yesterday.Blood Cx from 10/04 reviewed.Negative so far -: Py appears ill and needs monitoring for any developing infection -: home meds as below.am labs * . Review of Systems - Review of Systems Constitutional: weakness, malaise. negative: fever, chills, sweats, other Respiratory: negative: Cough, Dry, Shortness of Breath, Hemoptysis, SOB with Excertion, Pleuritic Pain, Sputum, Wheezing Cardiovascular: negative: chest pain, palpitations, orthopnea, paroxysmal nocturnal dyspnea, edema, light headedness, other Gastrointestinal: Nausea. negative: Vomiting, Abdominal Pain, Diarrhea, Constipation, Melena, Hematochezia, Other Genitourinary: negative: Dysuria, Frequency, Incontinence, Hematuria, Retention , Other Musculoskeletal: negative: Neck Pain, Shoulder Pain, Arm Pain, Back Pain, Hand Pain, Leg Pain, Foot Pain, Other Neurological: negative: Weakness, Numbness, Incoordination, Change in Speech, Confusion, Seizures, Other - Medications/Allergies Allergies/Adverse Reactions: Allergies Allergy/AdvReac Type Severity Reaction Status Date / Time camphor Allergy Verified 12/03/17 22:05 cephalexin [From Keflex] Allergy Verified 05/22/18 20:23 ciprofloxacin [From Cipro] Allergy Verified 12/03/17 22:05 hydralazine Allergy Verified 07/17/17 14:46 insulin lispro Allergy Verified 03/07/18 17:34 [From Humalog Mix] insulin lispro protamine Allergy Verified 03/07/18 17:34 [From Humalog Mix] latex Allergy Verified 05/22/18 20:23 lisinopril Allergy Verified 05/22/18 20:23 naproxen [From Naprosyn] Allergy Verified 07/17/17 14:46 Medications: Current Medications Acetaminophen (Tylenol) 1,000 mg PO Q6H PRN PRN Reason: Mild Pain (1-3) Amlodipine Besylate (Norvasc) 5 mg PO QAM [facility] Last Admin: 10/06/18 10:47 Dose: 5 mg Atorvastatin Calcium (Lipitor) 40 mg PO HS [facility] Carvedilol (Coreg) 12.5 mg PO BID-[facility] Last Admin: 10/06/18 09:30 Dose: 12.5 mg Cholecalciferol (Vitamin D3) 1,000 units PO QPM [facility] Dextrose/Water (Dextrose 50%) 25 gm SLOW IVP PRN PRN PRN Reason: Hypoglycemia Famotidine (Pepcid) 20 mg PO BID [facility] Last Admin: 10/06/18 09:31 Dose: 20 mg Ferrous Sulfate (Feosol) 325 mg PO QPM [facility] Gabapentin (Neurontin) 100 mg PO TID [facility] Last Admin: 10/06/18 15:32 Dose: 100 mg Glucagon (Glucagon) 1 mg IM PRN PRN PRN Reason: HYPOGLYCEMIA Hydrocortisone/Aloe (Hydrocortisone 1% Cream) 0 gm TOP QIDPRN PRN PRN Reason: Itching Dextrose/Water (D5w) 1,000 mls @ 0 mls/hr IV .Q0M PRN PRN Reason: Hypoglycemia Levetiracetam 500 mg/ Device 100 mls @ 200 mls/hr IVPB 0600,1800 [facility] Last Admin: 10/06/18 06:33 Dose: 100 mls Insulin Human Lispro (Humalog) 0 units SC .MILD SLIDING SCALE PRN PRN Reason: Mild Correctional Scale Insulin Human Lispro (Humalog) 0 units SC .BEDTIME SLIDING SC PRN PRN Reason: Bedtime Correctional Scale Insulin Human Lispro (Humalog) 0 units SC BID-AC PRN PRN Reason: Hyperglycemia Isosorbide Mononitrate (Imdur) 120 mg PO QAM [facility] Last Admin: 10/06/18 10:46 Dose: 120 mg Ondansetron HCl (Zofran Odt) 4 mg PO Q6H PRN PRN Reason: Nausea/Vomiting Ondansetron HCl (Zofran) 4 mg IVP Q6H PRN PRN Reason: Nausea/Vomiting Pantoprazole Sodium (Protonix) 40 mg PO DAILY [facility] Last Admin: 10/06/18 10:47 Dose: 40 mg Ticagrelor (Brilinta) 90 mg PO BID [facility] Last Admin: 10/06/18 09:30 Dose: 90 mg
[2018-10-06] MEDS ORDERED: Sodium Chloride 0.65% Nasal 44 ML BOT EA NARE PRN (16:49)
--- NOTE | 2018-10-06 18:17 | PRG ---
DATE OF SERVICE: 10/06/2018 SUBJECTIVE: Patient was seen and examined at bedside and overnight events noted. Patient denies any shortness of breath or chest pain or palpitation. No history of nausea or vomiting or diarrhea or fever or chills or cramps. OBJECTIVE: GENERAL: This is a well-built female, in no apparent distress. VITAL SIGNS: Temperature 98.2. Pulse 73. Respiratory rate 18. Blood pressure 103/63. HEENT: Atraumatic, normocephalic. Oral mucosa is moist NECK: Supple. CARDIOVASCULAR: S1, S2 heard. Rate and rhythm regular. RESPIRATORY: Clear to auscultation. GASTROINTESTINAL: Abdomen is soft. MUSCULOSKELETAL: No tenderness. No edema. DERMATOLOGIC: No skin rash. NEUROLOGIC: Alert and awake and oriented X3. No focal neurologic deficits. Moving all the extremities. PSYCHIATRIC: Mood and affect normal. LABORATORY DATA: Potassium 4.1, BUN is 15, and creatinine is 2.1. ASSESSMENT AND PLAN: 1. End-stage renal disease. We will continue on hemodialysis as tolerated. 2. Hypertension. 3. Edema. 4. Anemia. We will monitor. Plan to continue on dialysis as tolerated on Friday, Friday, and Friday. Job ID: [id number]
[2018-10-06] MEDS: Acetaminophen 500 MG TAB PO PRN (19:05)
[2018-10-06] MEDS ORDERED: Atorvastatin Calcium 40 MG TAB PO SCH (21:00)
[2018-10-06] MEDS ORDERED: Ferrous Sulfate 325 MG TAB PO SCH (21:00)
--- NOTE | 2018-10-06 23:24 | CON ---
DATE OF CONSULTATION: 10/06/2018 CONSULTING PHYSICIAN: Hospitalist Services. IMPRESSION: 1. Simple partial status epilepticus. 2. History of prior stroke. 3. End-stage renal disease, on hemodialysis. 4. Hyperlipidemia. 5. Diabetes. PLAN: 1. Continue Keppra 500 mg twice a day. 2. MRI of the brain without contrast. HISTORY OF PRESENT ILLNESS: Ms. Kaba is a 52-year-old white female who started having uncontrolled myoclonic type jerks. She would have these repeatedly and never apparently lose consciousness according to her daughter. She would get quite lethargic and fall off to sleep if he left her alone. She stated brought her into the hospital for evaluation. She had an EEG which showed some variable diffuse slowing with episodic generalized epileptiform discharges. Her echocardiogram showed a normal ejection fraction 40% to 45%. She was started on Keppra and her mentation has cleared up. She denies any past history of seizures. She reports having a mild stroke with left-sided facial droop few years ago. She has been on anti-stroke regimen since then. PAST MEDICAL HISTORY: As listed above. ALLERGIES: NUMEROUS PER CHART. SOCIAL HISTORY: Positive for tobacco and some alcohol use. FAMILY HISTORY: Noncontributory. REVIEW OF SYSTEMS: Ten system review of systems is otherwise unremarkable. PHYSICAL EXAMINATION: GENERAL: She is a reasonably well-nourished middle-aged woman, in no acute distress. VITAL SIGNS: Stable. She is afebrile. HEENT: Pupils are equal and reactive. Conjunctivae clear. Oropharynx clear. NECK: Supple. No lymphadenopathy. EXTREMITIES: No cyanosis or edema. NEUROLOGIC: She is alert and appropriate. Her speech is fluent and clear. Cranial nerves were intact throughout. Motor exam showed good strength in all 4 extremities. No tremor or other abnormal movements were seen. Sensations intact to light touch. LABORATORY STUDIES: EKG shows normal sinus rhythm. SUMMARY: A middle-aged woman with new onset of focal status epilepticus. She seems to be doing better since the addition of Keppra. We can complete her workup with an MRI to rule out any new structural etiology. Job ID: [id number]
[2018-10-07] MEDS: Morphine 4 MG/ML VIAL SLOW IVP PRN ×2 (00:42→13:55)
[2018-10-07] MEDS: Acetaminophen 500 MG TAB PO PRN (01:59)
[2018-10-07 05:49] LABS: #Basophils 0.1 thou/uL (0.0-0.2); #Eosinphils 0.5 thou/uL (0.0-0.7); #Lymphocytes 2.2 thou/uL (1.20-3.40); #Monocytes 1.1 thou/uL (0.11-0.59); #Neutrophils 7.1 thou/uL (1.40-6.50); %Eosinophils 4.2 % (0.0-10.0); %Lymphocytes 20.1 % (21.0-51.0); %Monocytes 10.3 % (0.0-10.0); %Neutrophils 64.4 % (42.0-75.0); Hemoglobin 9.3 g/dL (12.0-16.0); Mean Corpuscular HGB CONC 32.1 g/dL (32.0-36.0); Mean Corpuscular Hemoglobin 28.5 pg (27.0-31.0); Mean Corpuscular Volume 88.6 fL (78.0-98.0); Mean Platelet Volume 7.9 fL (7.4-10.4); Platelet Count 352 thou/uL (130-400); RBC Distribution Width 14.8 % (11.5-14.5); Red Blood Cell (RBC) Count 3.25 mill/uL (4.20-5.40); White Blood Cell (WBC) Count 11.1 thou/uL (4.8-10.8)
[2018-10-07 06:00] LABS: Anion Gap 13 mmol/L (10-20); BUN (Urea Nitrogen) 24 mg/dL (9.8-20.1); Calc. Creatinine Clearance 22 mL/min (70-130); Calcium 8.2 mg/dL (7.8-10.44); Carbon Dioxide 27 mmol/L (22-29); Chloride 102 mmol/L (98-107); Estimated GFR-MDRD 16; Glucose 174 mg/dL (70-105); Potassium 4.5 mmol/L (3.5-5.1); Sodium 137 mmol/L (136-145)
[2018-10-07] MEDS ORDERED: Heparin 10,000 UNITS/ 10 ML VIAL ONE (09:00)
[2018-10-07] MEDS ORDERED: Fluticasone Propionate Nasal Spray 16 gm Bottle NASAL SCH (09:00)
[2018-10-07] MEDS ORDERED: Clopidogrel Bisulfate 75 MG TAB PO SCH (09:00)
--- NOTE | 2018-10-07 10:02 | MRI ---
MRI BRAIN NONCONTRAST: DATE: 10/07/2018. HISTORY: A 52-year-old female with "abnormal EEG" and tremors. COMPARISON: No prior brain MRIs. FINDINGS: At the lateral inferior aspect of the left frontal lobe, just anterior to the left sylvian fissure, t here is an approximately 2.5 cm patch of T2 and FLAIR hyperintensity. This location, close to interf renan with lateral supraorbital bone, is such that there is naturally magnetic susceptibility artifact on the gradient echo sequence anyway, and therefore, it is difficult to determine whether or not ther e is a hemosiderin stain here. Nevertheless, the location favors old trauma over old infarction. In the right kurtz radiata, abutting the lateral edge of the right lateral ventricle, there is a 0.9 x 0.4 cm small T2 and FLAIR hyperintense lesion, which is moderately hyperintense on the diffusion w eighted sequence. It is neither hyperintense nor hypointense on the ADC map, and therefore, it is di fficult to determine whether this is subacute or chronic, if it is a white matter lacunar infarction. There are several other small and tiny T2 hyperintense foci elsewhere, mostly in the subcortical whit e matter/ camp-white junction, including right occipital and left parietal. There are a couple of bi lateral deep white matter parietal small lesions adjacent to the trigones of lateral ventricles. The se are nonspecific. They probably represent additional old small white matter lacunar infarctions. T here is a possibility that some of them could represent some other disease entity such as metastases, but that would be unlikely unless the patient has a known primary malignancy. Unfortunately, the yumiko quijano is a dialysis patient, and therefore, no IV Gadolinium-based contrast adjacent was given. There are numerous tiny T2 hyperintense foci in the bifrontal centrum semiovale and upper subcortical white matter, approximately 2 mm in size each, consistent with mild chronic ischemic white matter ch anges due to microvascular atherosclerosis. Ventricles are minimally dilated on the basis of mild central parenchymal volume loss, similar to a CT. No obstructive hydrocephalus. No mass effect or midline shift. No extraaxial fluid col lection. No acute intraaxial hemorrhage. Flow voids are grossly maintained in the major arteries of the [place]. IMPRESSION: 1. Small old insult in the left lateral inferior frontal lobe: old traumatic injury versus old infar ction. Old trauma slightly favored, based on location. 2. Very small focal lesion in right deep cerebral white matter. Uncertain whether this represents s ubacute white matter lacunar infarction or old one, or some other disease entity. 3. Several scattered subcentimeter focal subcortical white matter lesions. These are nonspecific. Possibilities include chronic ischemic white matter changes and/or old white matter lacunar infarctio ns, metastatic lesions, and septic emboli. 4. Recommend serial followup noncontrast brain MRI's, beginning in 3 months (or sooner if there is i nterval change in the neurological status). TRINITY Vega POS: GERARDO
[2018-10-07] MEDS ORDERED: Aspirin 81 mg Enteric Coated Tablet PO SCH (12:00)
[2018-10-07] MEDS: TICAGRELOR 90 MG TABLET PO SCH (13:27)
[2018-10-07] MEDS: Gabapentin 100 MG CAP PO SCH ×2 (13:28→16:01)
[2018-10-07] MEDS: Famotidine 20 MG TAB PO SCH (13:28)
[2018-10-07] MEDS: Carvedilol 6.25 MG TAB PO SCH ×2 (13:28→17:18)
[2018-10-07] MEDS: Amlodipine 5 MG TAB PO SCH (13:29)
[2018-10-07 16:13] VITALS: TEMP 98.4
[2018-10-07 17:24] VITALS: BP 138/68
--- NOTE | 2018-10-08 01:20 | DIS ---
DATE OF ADMISSION: 10/05/2018 DATE OF DISCHARGE: 10/07/2018 CONDITION: at the time of discharge, stable and improved. DISCHARGE DISPOSITION: Home. PRIMARY CARE PHYSICIAN: Dr. Doris Connor. DISCHARGE DIAGNOSES: 1. Seizures likely due to old cerebral infarction. 2. End-stage renal disease, on hemodialysis. 3. Chronic normocytic normochromic anemia. 4. History of coronary artery disease. 5. Hypertension. 6. Dyslipidemia. 7. History of ischemic cardiomyopathy, stable. 8. Peripheral neuropathy due to diabetes. 9. Diabetes mellitus. 10. Tobacco abuse. DISCHARGE MEDICATIONS: New medication Keppra 500 mg p.o. b.i.d. Home medications were resumed. Please see admission history and physical dictated by Dr. Marshall on 10/05/2017 for full list. Please note that the patient also takes aspirin 81 mg daily in addition to Brilinta as noticed in the H and P. She does not take Plavix anymore. PROCEDURES DONE IN HOSPITAL: 1. EEG study which was abnormal and showed diffuse slowing with some intermixed epileptiform features seen in a generalized distribution. 2. MRI of the brain which showed small old insult in the left lateral inferior frontal lobe, trauma versus old infarction and a very small focal lesion in the right deep cerebral white matter, possibly old infarction and several scattered subcentimeter focal subcortical white matter lesions, possibly old infarctions. 3. Maintenance hemodialysis. IN-HOUSE CONSULTATION: 1. Nephrology. 2. Neurology, Dr. John Yang. HISTORY OF PRESENTING ILLNESS: Ms. Kaba is a 52-year-old female with a past medical history of chronic end-stage renal disease, who was recently started on hemodialysis last month as well as history of ischemic cardiomyopathy, coronary artery disease, who presented to the emergency room with complaints of generalized weakness and muscle twitching. She was recently admitted to our facility from 09/18 to 09/24/2018, at which time, she was started on hemodialysis for fluid overload and worsening congestive heart failure due to worsening renal function. She was discharged home at that time. The daughter brought her in when she found that her mother was having muscle twitching and jerking while seated and there were increased weakness and lethargy. Upon presentation, she was hemodynamically stable and was admitted with a presumptive diagnosis of focal seizure and EEG was ordered. Her blood work upon presentation did not have any dramatic changes beyond the norm. EKG was unremarkable. Please see H and P dictated by Dr. Marshall on 10/05/2018, for further details. HOSPITAL COURSE: The patient had no episodes of myoclonic jerks or seizures while in the hospital. She was however found to be somewhat postictal the day after presentation which gradually improved. She got maintenance hemodialysis. She underwent EEG which showed diffuse slowing with intermittent epileptiform discharges. Neurology saw the patient and recommended continuation of Keppra that was started on admission. She will continue Keppra 500 mg p.o. b.i.d. with outpatient followup. She was seen by her human resources support specialist, Dr. Ferguson for maintenance dialysis and was also followed up by her surgeon, Dr. Blanc, who has recently placed a fistula. Rehab and Shelter Rehab were offered to her, but she declined. We will try to get home health set up for her prior to discharge. As of now, she has been cleared for discharge by Neurology as well as Nephrology. Please note that the MRI of the brain was done as ordered by Dr. Yang for looking for the reasons for the seizure. She was found to have evidence of multiple old infarction and this likely is the reason for the seizures. She was seen and examined prior to discharge in hemodialysis. PHYSICAL EXAMINATION: VITAL SIGNS: This morning, vital signs are stable. Blood pressure 152/80 with heart rate of 87. GENERAL: No acute distress. Awake, alert, and oriented x3. CHEST: Clear to auscultation bilaterally. HEART: Rate and rhythm regular. EXTREMITIES: No lower extremity swelling. LABORATORY STUDIES: Blood culture remained negative till date. Serum chemistry shows BUN of 24, creatinine 2.99, blood sugar 174. Her prolactin at the time of presentation was normal at 12.43. DISCHARGE PLAN: Discharge plan was discussed with the patient who verbalized understanding. TIME SPENT: Total time spent in the discharge, 33 minutes. Job ID: [id number]
--- NOTE | 2018-10-08 08:40 | PRG ---
DATE OF SERVICE: 10/07/2018 SUBJECTIVE: Patient was seen and examined at bedside and overnight events noted. Patient denies any shortness of breath or chest pain or palpitation. No history of nausea or vomiting or diarrhea or fever or chills or cramps. OBJECTIVE: GENERAL: This is a well-built female, in no apparent distress. VITAL SIGNS: Temperature 98.4. Heart rate 84. Respiratory rate 20. Blood pressure 164/88. HEENT: Atraumatic, normocephalic. Oral mucosa is moist NECK: Supple. CARDIOVASCULAR: S1, S2 heard. Rate and rhythm regular. RESPIRATORY: Clear to auscultation. GASTROINTESTINAL: Abdomen is soft. MUSCULOSKELETAL: No tenderness. No edema. DERMATOLOGIC: No skin rash. NEUROLOGIC: Alert and awake and oriented X3. No focal neurologic deficits. Moving all the extremities. PSYCHIATRIC: Mood and affect normal. LABORATORY DATA: Potassium is 4.5. BUN is 24, creatinine is 2.9. ASSESSMENT AND PLAN: 1. End-stage renal disease. We will continue on hemodialysis. 2. Hypertension . 3. Anemia. Plan to continue on dialysis as tolerated. Job ID: [id number]
[2018-10-08] MEDS ORDERED: Aspirin 81 mg Enteric Coated Tablet PO SCH (09:00)
== END 2018-10-07 19:37 | disposition home or self-care (01) ==
LOC: ERS 23:39 → ERHOLD 10-05 02:24 → 2SE 10-05 23:24
PROVIDERS: ADMIT Internal Medicine; ATTEND Internal Medicine
DX: G40.101 Localization-related (focal) (partial) symptomatic epilepsy and epileptic syndromes with simple partial seizures, not intractable, with status epilepticus (principal); I12.0 Hypertensive chronic kidney disease with stage 5 chronic kidney disease or end stage renal disease; E11.22 Type 2 diabetes mellitus with diabetic chronic kidney disease; N18.6 End stage renal disease; D63.1 Anemia in chronic kidney disease; I25.10 Atherosclerotic heart disease of native coronary artery without angina pectoris; E78.5 Hyperlipidemia, unspecified; I25.5 Ischemic cardiomyopathy; E11.42 Type 2 diabetes mellitus with diabetic polyneuropathy; I25.2 Old myocardial infarction; K21.9 Gastro-esophageal reflux disease without esophagitis; I69.354 Hemiplegia and hemiparesis following cerebral infarction affecting left non-dominant side; F17.210 Nicotine dependence, cigarettes, uncomplicated; F17.290 Nicotine dependence, other tobacco product, uncomplicated; G93.41 Metabolic encephalopathy; Z99.2 Dependence on renal dialysis; Z96.41 Presence of insulin pump (external) (internal); Z79.899 Other long term (current) drug therapy; Z95.5 Presence of coronary angioplasty implant and graft; Z88.1 Allergy status to other antibiotic agents; Z88.8 Allergy status to other drugs, medicaments and biological substances
CPT/HCPCS: 36415; 36416; 70551; 80048; 82140; 82553; 83735; 84146; 84443; 85007; 85025; 85027; 87040; 90935; 93005; 94760; 95816; 95819; 96365; 96366; 96367; 96375; 96376; G0257; G0378; J0692; J1200; J1644; J1953; J2270

== ENCOUNTER 2018-10-21 11:09 | Emergency (ER) | payer OTHER ==
[2018-10-21] MEDS ORDERED: Ondansetron ODT 4 MG TAB ONE (12:54)
[2018-10-21] MEDS ORDERED: HYDROcodone/Acetaminophen 10/325 mg Tablet ONE (12:54)
--- NOTE | 2018-10-21 13:55 | RAD ---
LEFT ANKLE 3 VIEWS: HISTORY: Left ankle pain. FINDINGS: The ankle mortise is maintained. No acute fracture or dislocation or bony destruction is identified. POS: OFF
== END 2018-10-21 13:54 | disposition home or self-care (01) ==
LOC: ERS 11:09
DX: M25.571 Pain in right ankle and joints of right foot (principal); I12.0 Hypertensive chronic kidney disease with stage 5 chronic kidney disease or end stage renal disease; E11.22 Type 2 diabetes mellitus with diabetic chronic kidney disease; N18.6 End stage renal disease; I25.10 Atherosclerotic heart disease of native coronary artery without angina pectoris; K21.9 Gastro-esophageal reflux disease without esophagitis; E78.5 Hyperlipidemia, unspecified; Z86.73 Personal history of transient ischemic attack (TIA), and cerebral infarction without residual deficits; Z79.899 Other long term (current) drug therapy
CPT/HCPCS: Q0162

== ENCOUNTER 2018-10-23 15:43 | Outpatient (CLI) | payer OTHER ==
[2018-10-23 17:07] LABS: #Basophils 0.1 thou/uL (0.0-0.2); #Eosinphils 0.4 thou/uL (0.0-0.7); #Monocytes 0.6 thou/uL (0.11-0.59); #Neutrophils 4.8 thou/uL (1.40-6.50); %Basophils 1.1 % (0.0-1.0); %Eosinophils 5.7 % (0.0-10.0); %Lymphocytes 25.1 % (21.0-51.0); %Monocytes 7.4 % (0.0-10.0); %Neutrophils 60.7 % (42.0-75.0); Hemoglobin 10.5 g/dL (12.0-16.0); Mean Corpuscular HGB CONC 30.5 g/dL (32.0-36.0); Mean Corpuscular Hemoglobin 27.2 pg (27.0-31.0); Mean Platelet Volume 8.7 fL (7.4-10.4); Platelet Count 359 thou/uL (130-400); RBC Distribution Width 15.8 % (11.5-14.5); Red Blood Cell (RBC) Count 3.86 mill/uL (4.20-5.40); White Blood Cell (WBC) Count 7.8 thou/uL (4.8-10.8)
[2018-10-23 17:32] LABS: Anion Gap 15 mmol/L (10-20); BUN (Urea Nitrogen) 25 mg/dL (9.8-20.1); Calc. Creatinine Clearance 0 mL/min (70-130); Calcium 8.4 mg/dL (7.8-10.44); Carbon Dioxide 30 mmol/L (22-29); Chloride 98 mmol/L (98-107); Estimated GFR-MDRD 15; Glucose 363 mg/dL (70-105); Potassium 4.8 mmol/L (3.5-5.1); Sodium 138 mmol/L (136-145)
== END 2018-10-23 15:44 | disposition home or self-care (01) ==
LOC: LABBT 15:43
PROVIDERS: ATTEND Specialist
DX: Z01.812 Encounter for preprocedural laboratory examination (principal); N18.6 End stage renal disease
CPT/HCPCS: 80048; 85025

== ENCOUNTER 2018-10-27 03:16 | Inpatient (IN) | payer OTHER ==
[2018-10-27 04:29] LABS: Hemoglobin 11.9 g/dL (12.0-16.0); Mean Corpuscular HGB CONC 30.9 g/dL (32.0-36.0); Mean Corpuscular Hemoglobin 27.9 pg (27.0-31.0); Mean Corpuscular Volume 90.4 fL (78.0-98.0); Mean Platelet Volume 9.2 fL (7.4-10.4); Platelet Count 293 thou/uL (130-400); Red Blood Cell (RBC) Count 4.27 mill/uL (4.20-5.40); White Blood Cell (WBC) Count 9.5 thou/uL (4.8-10.8)
[2018-10-27 04:47] LABS: ALT (SGPT) 9 U/L (8-55); AST (SGOT) 13 U/L (5-34); Albumin 3.5 g/dL (3.5-5.0); Alkaline Phosphatase 230 U/L (40-150); Anion Gap 22 mmol/L (10-20); BUN (Urea Nitrogen) 45 mg/dL (9.8-20.1); Bilirubin, Total 0.3 mg/dL (0.2-1.2); Calc. Creatinine Clearance 0 mL/min (70-130); Calcium 8.4 mg/dL (7.8-10.44); Carbon Dioxide 23 mmol/L (22-29); Chloride 97 mmol/L (98-107); Estimated GFR-MDRD 15; Globulin 3.3 g/dL (2.4-3.5); Glucose 503 mg/dL (70-105); Potassium 4.9 mmol/L (3.5-5.1); Protein, Total 6.8 g/dL (6.0-8.3); Sodium 137 mmol/L (136-145)
[2018-10-27 04:57] LABS: #Basophils 0.1 thou/uL (0.0-0.2); #Eosinphils 0.5 thou/uL (0.0-0.7); #Lymphocytes 2.3 thou/uL (1.20-3.40); #Monocytes 0.7 thou/uL (0.11-0.59); %Basophils 0.8 % (0.0-1.0); %Lymphocytes 24.2 % (21.0-51.0); %Monocytes 7.1 % (0.0-10.0); %Neutrophils 62.9 % (42.0-75.0); Platelet Morphology Comment Appears Adequate
[2018-10-27 05:10] LABS: CKMB 7.8 ng/mL (0-6.6)
[2018-10-27] MEDS ORDERED: Insulin Regular 300 UNITS/3 ML VIAL ONE (05:22)
[2018-10-27 05:39] LABS: Bilirubin Negative (Negative); Blood, Urine Moderate (Negative); Clarity TURBID (Clear); Glucose, Urine (Dipstick) 500 mg/dL (Negative); Leukocyte Moderate (Negative); Nitrite Negative (Negative); Protein, Urine (Dipstick) > or equal to 300 mg/dL (Neg-Trace); Specific Gravity, Urine 1.027 (1.002-1.036); Urobilinogen 0.2 mg/dL (0.2-1.0); pH, Urine 5.5 (5.0-9.0)
[2018-10-27] MEDS ORDERED: Furosemide 40 MG/4 ML VIAL ONE (05:42)
[2018-10-27 06:03] LABS: Bacteria/HPF 4+ HPF (None Seen)
[2018-10-27 06:04] LABS: Hyaline Casts/LPF 0-3 HYALINE CAST LPF (0-3 Hyaline)
--- NOTE | 2018-10-27 08:48 | RAD ---
CHEST ONE VIEW: Indication: History of respiratory distress. Comparison: Prior exam 10-04-18. FINDINGS: There is worsening bilateral pleural effusions, moderate left and smaller on the right. There are bib asilar opacities suspicious for atelectasis. There is worsening pulmonary vascular congestion and kamaljit tral edema. There is stable right IJ dialysis catheter. No pneumothorax is evident. IMPRESSION: Worsening volume overload seen in the chest. POS: BH
[2018-10-27] MEDS ORDERED: Carvedilol 6.25 MG TAB PO SCH (10:15)
[2018-10-27] MEDS ORDERED: levETIRAcetam 500 MG TAB PO SCH (10:15)
[2018-10-27] MEDS ORDERED: Heparin 10,000 UNITS/ 10 ML VIAL ONE (11:11)
[2018-10-27] MEDS ORDERED: Dextrose 5% in Water 1,000 ML IV PRN (11:12)
[2018-10-27] MEDS ORDERED: Dextrose 50% Abboject 50 ML SYRINGE SLOW IVP PRN (11:12)
[2018-10-27] MEDS ORDERED: Insulin Regular 300 UNITS/3 ML VIAL SC PRN ×2 (11:12)
[2018-10-27] MEDS ORDERED: Lorazepam 1 MG TAB ONE (11:25)
[2018-10-27] MEDS: Lorazepam 0.5 MG TAB PO PRN (11:38)
[2018-10-27 11:54] LABS: HBSAB Concentration 3.36 mIU/mL; HBSAg Index 0.35 S/CO (0-0.99); Hep B Surf AB Non-Reactive (NonReactive); Hep B Surf Ag Non-Reactive S/CO (NonReactive)
--- NOTE | 2018-10-27 13:17 | CON ---
DATE OF CONSULTATION: 10/27/2018 CONSULTING PHYSICIAN: Dr. Lloyd REASON FOR CONSULT: End-stage renal disease evaluation and care. REASON FOR ADMISSION: Shortness of breath. HISTORY OF PRESENT ILLNESS: A 52-year-old female with history of end-stage renal disease, type 2 diabetes, and coronary artery disease, came to the hospital with shortness of breath. She had dialysis yesterday, but had to be shortened and she is having orthopnea. No chest pain or palpitation. She was found to have pleural effusion. Nephrology consulted for fluid overload. PAST MEDICAL HISTORY: Positive for end-stage renal disease, type 2 diabetes, coronary artery disease, GERD, hyperlipidemia, hypertension, CVA, ischemic cardiomyopathy, and tobacco abuse. PAST SURGICAL HISTORY: AV fistula placement, , cholecystectomy, hysterectomy, dialysis catheter placement, and cardiac stents. HOME MEDICATIONS: 1. Vitamin D3. 2. Neurontin. 3. Isosorbide mononitrate. 4. Amlodipine. 5. Lipitor. 6. Carvedilol. 7. Ferrous sulfate. 8. Protonix. 9. Brilinta. ALLERGIES: TO CAMPHOR, KEFLEX, CIPROFLOXACIN, HYDRALAZINE, AND LISPRO INSULIN FAMILY HISTORY: Positive for hypertension and diabetes. SOCIAL HISTORY: Smokes cigarettes. Occasional alcohol use. REVIEW OF SYSTEMS: CONSTITUTIONAL: Negative for weight loss or gain, ability to conduct usual activities. SKIN: Negative for rash, itching. EYES: Negative for double vision, pain. ENT/MOUTH: Negative for nose bleeding, neck stiffness, pain, tenderness. CARDIOVASCULAR: Negative for palpitations, dyspnea on exertion, orthopnea. RESPIRATORY: Negative for shortness of breath, wheezing, cough, hemoptysis, fever or night sweats. GASTROINTESTINAL: Negative for poor appetite, abdominal pain, heartburn, nausea, vomiting, constipation, or diarrhea. GENITOURINARY: Negative for urgency, frequency, dysuria, nocturia. MUSCULOSKELETAL: Negative for pain, swelling. NEUROLOGIC/PSYCHIATRIC: Negative for anxiety, depression. ALLERGY/IMMUNOLOGIC: Negative for skin rash, bleeding tendency. PHYSICAL EXAMINATION: GENERAL: Thin-built female, in no apparent distress. VITAL SIGNS: Temperature 98.5, pulse 87, respiratory rate 20, and blood pressure 130 to 140. HEENT: Atraumatic and normocephalic. NECK: Supple. CV: S1 and S2 heard. RESPIRATORY: Reduced breath sounds. GI: Abdomen is soft. MUSCULOSKELETAL: 1+ edema. Dermatologic: No skin rash. NEUROLOGIC: Alert and awake. PSYCHIATRIC: Mood and affect normal LABORATORY DATA: Hemoglobin 11.9. Potassium 4.9, BUN is 45, and creatinine 3.2. ASSESSMENT AND PLAN: 1. End-stage renal disease. Plan to have dialysis today. 2. Fluid overload with elevated BNP. 3. Edema. 4. Hypertension. 5. Anemia. Mild. 6. Proteinuria. 7. Pleural effusion, not sure if she will be able to have ultrafiltration helping her pleural effusion. We will recommend a Pulmonology consult, if not better with dialysis. 8. Limit fluid intake, limit sodium intake and we will attempt ultrafiltration with dialysis as tolerated. Follow with Pulmonology if possible. Job ID: [id number]
[2018-10-27] MEDS ORDERED: Calcium Carbonate 500 MG ChewTAB PO PRN (14:08)
[2018-10-27] MEDS ORDERED: Acetaminophen 325 MG TAB PO PRN (14:08)
[2018-10-27] MEDS ORDERED: Senokot S 8.6-50 MG TAB PO PRN (14:08)
[2018-10-27] MEDS ORDERED: Ondansetron PF 4 MG/2 ML Vial IVP PRN (14:08)
[2018-10-27] MEDS ORDERED: Ondansetron ODT 4 MG TAB PO PRN (14:08)
[2018-10-27] MEDS ORDERED: HumaLOG 300 UNITS/3 ML VIAL SC SCH (14:15)
--- NOTE | 2018-10-27 14:30 | HP ---
PRIMARY CARE PHYSICIAN: Miller Bolivar DO. PRIMARY DESIGN ENGINEERING TECHNICIAN: Dr. Singh. CHIEF COMPLAINT: Shortness of breath. HISTORY OF PRESENT ILLNESS: The patient is a 52-year-old female with coronary artery disease, status post stent placement; diabetes mellitus type 2; end-stage renal disease, on hemodialysis; congestive heart failure, presented to the emergency room with above complaints. The patient underwent hemodialysis yesterday. However, since yesterday evening, the patient developed worsening shortness of breath. She was unable to lie down flat. She was short of breath on minimal exertion. She had intermittent wheezing and chest tightness as well. The chest tightness was left-sided without any aggravating or relieving factor. She had a cough, which was essentially dry. She also noticed worsening swelling in bilateral lower extremities. No palpitations, syncope, or diaphoresis reported. She denies any fever or chills. No sick contacts or travel reported. The patient is compliant with all of her medications. She has discontinued Brilinta 5 days ago for dialysis access intervention, which was scheduled for today. In the emergency room, her initial vital signs showed temperature 98.5, respirations of 20, pulse rate of 87, blood pressure of 138/114 with O2 saturation of 83% on room air. This improved to 96% on 4 L nasal cannula. She received 80 mg IV Lasix in the emergency room. PAST MEDICAL HISTORY: 1. Chronic systolic heart failure. Recent ejection fraction was 40% to 45%. Her ejection fraction in the past was 30% to 35%. 2. End-stage renal disease, on hemodialysis. 3. Hypertension. 4. Hyperlipidemia. 5. Diabetes mellitus type 2, on insulin pump. 6. Chronic anemia secondary to renal insufficiency. 7. Coronary artery disease, status post stent placement. 8. Hyperlipidemia. 9. History of CVA. 10. Seizure disorder. PAST SURGICAL HISTORY: 1. Dialysis access. 2. . 3. Cardiac catheterization. 4. Cholecystectomy. 5. Hysterectomy. ALLERGIES: THE PATIENT IS ALLERGIC TO MULTIPLE MEDICATIONS INCLUDING CIPROFLOXACIN, HYDRALAZINE, INSULIN, LISPRO, AND KEFLEX. CURRENT MEDICATIONS: Confirmed with the medication bottles at the bedside. 1. Tylenol as needed. 2. Amlodipine 5 mg daily. 3. Aspirin 81 mg daily. 4. Vitamin D3 1000 units daily. 5. Plavix 75 mg daily. She has not taken Plavix for last 3 weeks. 6. Ferrous sulfate 325 mg daily. 7. Gabapentin 400 mg three times a day. 8. Humalog insulin pump. 9. Imdur 120 mg daily. 10. Zofran as needed. 11. Brilinta 90 mg b.i.d. Last dose was on October 22. 12. Lipitor 40 mg daily. 13. Carvedilol 12.5 mg b.i.d. 14. Keppra 500 mg b.i.d. 15. Protonix 40 mg daily. SOCIAL HISTORY: The patient currently lives at home with her family. She is a former smoker. She has approximately 15 to 20 pack-year smoking history. No current use of alcohol or drug use. FAMILY HISTORY: Positive for hypertension and diabetes mellitus type 2. REVIEW OF SYSTEMS: All other review of systems was reviewed and was found negative. PHYSICAL EXAMINATION: VITAL SIGNS: As discussed above. GENERAL: A 52-year-old female in mild respiratory distress, able to complete short phrases. HEENT: Head, atraumatic and normocephalic. Sclerae anicteric. Moist mucous membranes. No oral lesion. NECK: Supple. JVD elevated. No carotid bruit. LUNGS: Showed bibasilar rales with scattered rhonchi. No significant wheezing noted. Mild accessory muscle use. HEART: S1, S2 present. Regular rate and rhythm. No heaves or pulsation. ABDOMEN: Soft, nontender. Bowel sounds present. EXTREMITIES: 2+ edema in bilateral lower extremity up to the knees. No calf tenderness. SKIN: Warm and dry. LYMPH NODES: No palpable lymph nodes in the neck. Peripheral vascular radial pulses palpable bilaterally. MUSCULOSKELETAL: No joint swelling or tenderness. NEUROLOGY: Grossly nonfocal. Moves all 4 extremities. Power is 5/5 in all extremities. PSYCHIATRY: Alert, awake, and oriented x3. LABORATORY FINDINGS: CBC showed WBC 9.5 with hemoglobin 11.9, hematocrit 38.7, platelet 293. Chemistry showed sodium 137, potassium 4.9, chloride 97, bicarb 23, BUN 45, creatinine 3.23. Troponin was 0.072. BNP 3589. Urinalysis showed greater than 50 wbc's with 4+ bacteria. IMAGING STUDIES: EKG by my review showed sinus rhythm with left axis deviation with nonspecific ST-T wave changes. IMPRESSION: 1. Acute hypoxic respiratory failure secondary to acute on chronic systolic heart failure exacerbation/volume overload. 2. Type 2 myocardial infarction. 3. Urinary tract infection. 4. Coronary artery disease, status post stent placement in the past. 5. Hypertension. 6. Hyperlipidemia. 7. Ischemic cardiomyopathy. 8. Diabetes mellitus type 2 with diabetic neuropathy. 9. Former smoker. 10. Seizure disorder. 11. End-stage renal disease, on hemodialysis. PLAN: The patient will be monitored on the telemetry unit. We will continue O2 supplementation. We will add nebulization as needed. She will undergo hemodialysis today. We will add urine cultures. We will resume all of her home medications including aspirin and isosorbide mononitrate. We will add fluid restriction. Insulin sliding scale. We will resume insulin pump if possible. Plan of care was discussed with the patient and the family in detail, they stated understanding. Job ID: [id number]
[2018-10-27 15:09] LABS: CKMB 7.6 ng/mL (0-6.6)
[2018-10-27] MEDS: Gabapentin 100 MG CAP PO SCH ×2 (15:34→20:47)
[2018-10-27 17:11] VITALS: BMI 23.6
[2018-10-27] MEDS ORDERED: traMADol HCl 50 MG TAB PO SCH (20:00)
[2018-10-27] MEDS: Carvedilol 6.25 MG TAB PO SCH (20:45)
[2018-10-27] MEDS: Atorvastatin Calcium 40 MG TAB PO SCH (20:46)
[2018-10-27] MEDS: Ferrous Sulfate 325 MG TAB PO SCH (20:46)
[2018-10-27] MEDS: Heparin 5,000 UNITS/ML VIAL SC SCH (20:47)
[2018-10-27] MEDS: Sulfameth/Trimethoprim SS 400-80MG TAB PO SCH (20:47)
[2018-10-27] MEDS: levETIRAcetam 500 MG TAB PO SCH (20:47)
[2018-10-27] MEDS: Insulin Glargine 10 UNITS in Pre-Filled Syringe 1 EACH SC SCH (20:52)
[2018-10-28 05:37] LABS: ALT (SGPT) Less than 7 U/L (8-55); AST (SGOT) 8 U/L (5-34); Albumin 2.7 g/dL (3.5-5.0); Alkaline Phosphatase 140 U/L (40-150); Anion Gap 14 mmol/L (10-20); BUN (Urea Nitrogen) 34 mg/dL (9.8-20.1); Bilirubin, Total 0.2 mg/dL (0.2-1.2); Calc. Creatinine Clearance 27 mL/min (70-130); Calcium 8.2 mg/dL (7.8-10.44); Carbon Dioxide 24 mmol/L (22-29); Chloride 101 mmol/L (98-107); Estimated GFR-MDRD 19; Globulin 2.8 g/dL (2.4-3.5); Glucose 253 mg/dL (70-105); Magnesium 2.3 mg/dL (1.6-2.6); Potassium 3.9 mmol/L (3.5-5.1); Protein, Total 5.5 g/dL (6.0-8.3); Sodium 135 mmol/L (136-145)
[2018-10-28] MEDS ORDERED: Vancomycin HCl 1.5 GM in Sodium Chloride 0.9% 250 ML 300 ML IVPB SCH (06:00)
[2018-10-28 07:07] LABS: #Basophils 0.1 thou/uL (0.0-0.2); #Eosinphils 0.3 thou/uL (0.0-0.7); #Lymphocytes 1.9 thou/uL (1.20-3.40); #Monocytes 0.9 thou/uL (0.11-0.59); #Neutrophils 4.6 thou/uL (1.40-6.50); %Basophils 0.9 % (0.0-1.0); %Eosinophils 4.5 % (0.0-10.0); %Lymphocytes 24.8 % (21.0-51.0); %Neutrophils 58.8 % (42.0-75.0); Hemoglobin 9.8 g/dL (12.0-16.0); Mean Corpuscular HGB CONC 31.3 g/dL (32.0-36.0); Mean Corpuscular Hemoglobin 28.2 pg (27.0-31.0); Mean Corpuscular Volume 90.1 fL (78.0-98.0); Platelet Count 240 thou/uL (130-400); RBC Distribution Width 16.6 % (11.5-14.5); Red Blood Cell (RBC) Count 3.47 mill/uL (4.20-5.40); White Blood Cell (WBC) Count 7.7 thou/uL (4.8-10.8)
[2018-10-28] MEDS: Lorazepam 0.5 MG TAB PO PRN ×2 (08:21→19:46)
--- NOTE | 2018-10-28 10:50 | PDOC.PN ---
- Subjective Encounter Start Date: 10/28/18 Encounter Start Time: 10:47 Patient seen and examined for CHF during dialysis. SOB improving. No CP. No new complaints. No overnight events - Objective Resuscitation Status - Order Detail: 10/27/18 14:08 Resuscitation Status Routine Resuscitation Status: FULL: Full Resuscitation MAR Reviewed: Yes Vital Signs & Weight: Vital Signs (12 hours) Temp Pulse Resp BP Pulse Ox 10/28/18 07:50 97.9 F 69 19 118/69 92 L 10/28/18 06:41 80 16 10/28/18 04:00 98.5 F 70 16 119/65 93 L 10/27/18 22:51 81 16 95 Weight Weight 148 lb 1.6 oz I&O: 10/27/18 10/28/18 10/29/18 06:59 06:59 06:59 Intake Total 360 Balance 360 Result Diagrams: 10/28/18 06:50 10/28/18 04:32 Additional Labs: Accuchecks 10/28/18 10/28/18 10/28/18 08:23 04:03 00:05 POC Glucose 133 H 283 H 357 H 10/27/18 10/27/18 10/27/18 20:30 16:04 10:51 POC Glucose 427 H 271 H 392 H EKG Reviewed by me: Yes (Tele SR) Phys Exam - Physical Examination Constitutional: NAD Respiratory: no wheezing, no rhonchi Cardiovascular: RRR, no rub Gastrointestinal: soft, positive bowel sounds Musculoskeletal: edema present improving Neurological: non-focal, moves all 4 limbs Psychiatric: A&O x 3 Dx/Plan - Plan DVT proph w/SCDs IMPRESSION: 1. Acute hypoxic respiratory failure secondary to acute on chronic systolic heart failure exacerbation/volume overload. 2. Type 2 myocardial infarction. 3. Urinary tract infection - E coli 4. Coronary artery disease, status post stent placement. 5. Hypertension. 6. Hyperlipidemia. 7. Ischemic cardiomyopathy. 8. Diabetes mellitus type 2 with diabetic neuropathy. 9. Former smoker. 10. Seizure disorder. 11. End-stage renal disease, on hemodialysis. PLAN: Dialysis per Nephrology Cont Bactrim for UTI Cont current meds as below Cont home Insulin pump Counselled on CHF Review of Systems - Review of Systems Respiratory: negative: Cough, Dry, Shortness of Breath, Hemoptysis, SOB with Excertion, Pleuritic Pain, Sputum, Wheezing Cardiovascular: negative: chest pain, palpitations, orthopnea, paroxysmal nocturnal dyspnea, edema, light headedness, other - Medications/Allergies Allergies/Adverse Reactions: Allergies Allergy/AdvReac Type Severity Reaction Status Date / Time camphor Allergy Anaphylaxis Verified 10/23/18 16:01 cephalexin [From Keflex] Allergy Anaphylaxis Verified 10/23/18 16:01 ciprofloxacin [From Cipro] Allergy Anaphylaxis Verified 10/23/18 16:01 hydralazine Allergy Anaphylaxis Verified 10/23/18 16:01 insulin lispro Allergy Anaphylaxis Verified 10/23/18 16:01 [From Humalog Mix] insulin lispro protamine Allergy Anaphylaxis Verified 10/23/18 16:01 [From Humalog Mix] latex Allergy Anaphylaxis Verified 10/23/18 16:01 lisinopril Allergy Anaphylaxis Verified 10/23/18 16:01 naproxen [From Naprosyn] Allergy Anaphylaxis Verified 10/23/18 16:01 Medications: Current Medications Acetaminophen (Tylenol) 650 mg PO Q4H PRN PRN Reason: Headache/Fever/Mild Pain (1-3) Albuterol/Ipratropium (Duoneb) 3 ml NEB Q4H PRN PRN Reason: SOB &/or Wheezing Albuterol/Ipratropium (Duoneb) 3 ml NEB [id number] [facility] Last Admin: 10/28/18 10:28 Dose: Not Given Amlodipine Besylate (Norvasc) 5 mg PO QAM [facility] Aspirin (Ecotrin) 81 mg PO DAILY [facility] Atorvastatin Calcium (Lipitor) 40 mg PO HS [facility] Last Admin: 10/27/18 20:46 Dose: 40 mg Calcium Carbonate (Tums) 1,000 mg PO Q4H PRN PRN Reason: Heartburn or Indigestion Carvedilol (Coreg) 12.5 mg PO BID-WM [facility] Last Admin: 10/27/18 20:45 Dose: 12.5 mg Cholecalciferol (Vitamin D3) 1,000 units PO QPM [facility] Last Admin: 10/27/18 20:46 Dose: 1,000 units Dextrose/Water (Dextrose 50%) 25 gm SLOW IVP PRN PRN PRN Reason: Hypoglycemia Ferrous Sulfate (Feosol) 325 mg PO QPM [facility] Last Admin: 10/27/18 20:46 Dose: 325 mg Gabapentin (Neurontin) 100 mg PO TID [facility] Last Admin: 10/27/18 20:47 Dose: 100 mg Glucagon (Glucagon) 1 mg IM PRN PRN PRN Reason: Hypoglycemia Heparin Sodium (Porcine) (Heparin) 5,000 units SC BID [facility] Last Admin: 10/27/18 20:47 Dose: 5,000 units Dextrose/Water (D5w) 1,000 mls @ 0 mls/hr IV .Q0M PRN PRN Reason: Hypoglycemia Vancomycin HCl 1.5 gm/ Sodium (Chloride) 300 mls @ 200 mls/hr IVPB ONCALL-OR [facility] Stop: 10/28/18 23:59 Insulin Glargine 10 units/ (Miscellaneous Medication) 0.1 mls @ 0 mls/hr SC BID [facility] Last Admin: 10/27/18 20:52 Dose: Not Given Insulin Human Regular (Humulin R) 0 units SC .MILD SLIDING SCALE PRN PRN Reason: Mild Correctional Scale Insulin Human Regular (Humulin R) 0 units SC .BEDTIME SLIDING SC PRN PRN Reason: Bedtime Correctional Scale Isosorbide Mononitrate (Imdur) 120 mg PO QAM [facility] Levetiracetam (Keppra) 500 mg PO BID [facility] Last Admin: 10/27/18 20:47 Dose: 500 mg Lorazepam (Ativan) 0.5 mg PO BIDPRN PRN PRN Reason: Anxiety Last Admin: 10/28/18 08:21 Dose: 0.5 mg Miscellaneous Medication (Pharmacy To Dose) 1 each PO PRN PRN PRN Reason: Pharmacy to dose Ondansetron HCl (Zofran Odt) 4 mg PO Q6H PRN PRN Reason: Nausea/Vomiting Ondansetron HCl (Zofran) 4 mg IVP Q6H PRN PRN Reason: Nausea/Vomiting Pantoprazole Sodium (Protonix) 40 mg PO DAILY [facility] Senna/Docusate Sodium (Senokot S) 2 tab PO BIDPRN PRN PRN Reason: Constipation Sodium Chloride (Flush - Normal Saline) 10 ml IVF PRN PRN PRN Reason: Saline Flush Trimethoprim/Sulfamethoxazole (Bactrim Ss) 1 tab PO Q12HR [facility] Last Admin: 10/27/18 20:47 Dose: 1 tab
[2018-10-28] MEDS ORDERED: Ondansetron PF 4 MG/2 ML Vial ONE (11:16)
[2018-10-28] MEDS ORDERED: Lidocaine 1% PF 5 ML VIAL ONE (11:16)
[2018-10-28] MEDS ORDERED: ePHEDrine 50 MG/ML VIAL ONE (11:16)
[2018-10-28] MEDS ORDERED: Heparin 10,000 UNITS/ 10 ML VIAL ONE (11:16)
[2018-10-28] MEDS ORDERED: PROPOFOL 200 MG/20 ML VIAL ONE (11:16)
[2018-10-28] MEDS ORDERED: PHENYLEPHRINE-NS 100 MCG/ML 10 ML SYRINGE ONE (11:16)
[2018-10-28] MEDS: Insulin Glargine 10 UNITS in Pre-Filled Syringe 1 EACH SC SCH (11:54)
[2018-10-28] MEDS: Amlodipine 5 MG TAB PO SCH (11:56)
[2018-10-28] MEDS: Gabapentin 100 MG CAP PO SCH ×3 (11:56→19:47)
[2018-10-28] MEDS: Aspirin 81 mg Enteric Coated Tablet PO SCH (11:56)
[2018-10-28] MEDS: Carvedilol 6.25 MG TAB PO SCH ×2 (11:56→19:48)
[2018-10-28] MEDS: Sulfameth/Trimethoprim SS 400-80MG TAB PO SCH ×2 (11:57→19:48)
[2018-10-28] MEDS: levETIRAcetam 500 MG TAB PO SCH ×2 (11:57→19:48)
[2018-10-28] MEDS: Heparin 5,000 UNITS/ML VIAL SC SCH ×2 (11:59→19:47)
--- NOTE | 2018-10-28 12:38 | PRG ---
DATE OF SERVICE: 10/28/2018 SUBJECTIVE: Patient was seen and examined at bedside and overnight events noted. Patient denies any shortness of breath or chest pain or palpitation. No history of nausea or vomiting or diarrhea or fever or chills or cramps. OBJECTIVE: GENERAL: This a thin-built female, in no apparent distress. VITAL SIGNS: Temperature 97.9, pulse 67, respiratory rate 18, and blood pressure 118/69. HEENT: Atraumatic, normocephalic. Oral mucosa is moist NECK: Supple. CARDIOVASCULAR: S1, S2 heard. Rate and rhythm regular. RESPIRATORY: Clear to auscultation. GASTROINTESTINAL: Abdomen is soft. MUSCULOSKELETAL: No tenderness. No edema. DERMATOLOGIC: No skin rash. NEUROLOGIC: Alert and awake and oriented X3. No focal neurologic deficits. Moving all the extremities. PSYCHIATRIC: Mood and affect normal. LABORATORY DATA: Potassium 3.9, BUN is 34, creatinine is 2.3. ASSESSMENT AND PLAN: 1. End-stage renal disease. Continue dialysis as tolerated. 2. Fluid overload. 3. Pleural effusion. Consider Pulmonology input. 4. Edema. 5. Hypertension. 6. Anemia. 7. Limit fluid and salt intake. We will continue dialysis as tolerated with ultrafiltration as tolerated. Job ID: [id number]
[2018-10-28] MEDS ORDERED: Bupivacaine HCl 0.5%/Epinephrine 1:200,000/PF 30 ml Vial ONE (16:02)
[2018-10-28] MEDS ORDERED: Lidocaine 2% PF 5 ML VIAL ONE (16:02)
[2018-10-28] MEDS ORDERED: Heparin 5,000 UNITS/ML VIAL ONE (16:02)
[2018-10-28] MEDS ORDERED: Fentanyl 100 MCG/2 ML VIAL ONE ×2 (16:12→18:38)
--- NOTE | 2018-10-28 16:26 | PRG ---
DATE OF SERVICE: Annalisa Kaba was scheduled for revision of her AV fistula yesterday, but presented to the emergency room with dyspnea. She is to have a basilic vein transposition fistula. She dialyzed last night and this morning and feels much better. I have talked to the patient this morning regarding her surgery. We will plan later this afternoon. Right arm basilic vein transposition fistula. Her cephalic vein is occluded from previous IV access as well as her perforating branch. She has good thrill and bruit in her fistula. Small hematoma of the wound, but she is ready for the basilic vein transposition of fistula. I have talked to Dr. Willie Robledo regarding her cardiac status prior hospitalization and she is safe to proceed with regional anesthesia and TIVA. We will plan this after dialysis. Job ID: [id number]
[2018-10-28] MEDS ORDERED: Bupivacaine/Epinephrine 0.25% 30 ML VIAL ONE (16:46)
[2018-10-28] MEDS ORDERED: Ondansetron HCl/PF 4 MG/2 ML Vial IVP PRN (18:28)
[2018-10-28] MEDS ORDERED: Promethazine HCl 25 MG/ML VIAL SLOW IVP PRN (18:28)
[2018-10-28] MEDS ORDERED: Promethazine HCl 25 MG/ML VIAL IM PRN (18:28)
[2018-10-28] MEDS ORDERED: Fentanyl 100 MCG/2 ML VIAL SLOW IVP SCH (19:30)
[2018-10-28] MEDS: traMADol HCl 50 MG TAB PO PRN (19:46)
[2018-10-28] MEDS: Atorvastatin Calcium 40 MG TAB PO SCH (19:47)
[2018-10-28] MEDS: Ferrous Sulfate 325 MG TAB PO SCH (19:48)
[2018-10-28] MEDS ORDERED: Heparin 10,000 UNITS/ 10 ML VIAL SLOW IVP SCH (21:00)
--- NOTE | 2018-10-28 22:05 | OP ---
DATE OF PROCEDURE: 10/28/2018 PREOPERATIVE DIAGNOSES: End-stage renal disease, occluded cephalic vein outflow, right arm fistula. POSTOPERATIVE DIAGNOSES: End-stage renal disease, occluded cephalic vein outflow, right arm fistula. PROCEDURE PERFORMED: Basilic vein transposition fistula. ANESTHESIA: General LMA, local 0.25% Marcaine with epinephrine 60 mL mixed to 2% Xylocaine, 10 mL of total volume used. DESCRIPTION OF PROCEDURE: The patient was taken to the operating room where under general LMA anesthesia, the right upper extremity was prepared with ChloraPrep and draped in routine fashion. Incision was made from the proximal volar forearm to the axilla, carried down through skin and subcutaneous tissue, deep fascia, removing the basilic vein, preserving surrounding nerves, dividing branch between 4-0 silk ties and clips. Mobilized the basilic vein, marking it with a marker and dissecting free to the proximal radial artery inflow. A tunnel was created with a 12-mm Maribel Wick tunneler over the anterior arm, directing into the axilla and the vascular clamp was placed on the cephalic vein just beyond the arterial inflow and antecubital area, and vein transected, connected to the tunneler maintaining proper orientation, brought through the tunnel, flushed with heparinized saline solution, noting good flow and then the 2 ends were spatulated appropriately, and end-to-end anastomosis was created with continuous suture of 6-0 Prolene. After completing the anastomosis, vascular clamps were released and there was good flow in the fistula. The patient was allergic to protamine, we could not give any. Good hemostasis noted, Surgicel applied. Hemostasis gained with 6-0 Prolene, clips, and 4-0 silk ties. Surgicel placed in the harvest bed and subcutaneous tissue was approximated with 3-0 Monocryl, skin with jamal. Sterile dressing applied. Job ID: [id number]
[2018-10-28] MEDS: Acetaminophen 500 MG TAB PO PRN (23:13)
[2018-10-29] MEDS: traMADol HCl 50 MG TAB PO PRN ×3 (01:31→20:28)
[2018-10-29] MEDS ORDERED: Morphine 4 MG/ML VIAL SLOW IVP SCH (03:15)
[2018-10-29] MEDS: Acetaminophen 500 MG TAB PO PRN ×3 (05:22→20:30)
[2018-10-29] MEDS: Aspirin 81 mg Enteric Coated Tablet PO SCH (08:51)
[2018-10-29] MEDS: Gabapentin 100 MG CAP PO SCH ×3 (08:51→20:29)
[2018-10-29] MEDS: Sulfameth/Trimethoprim SS 400-80MG TAB PO SCH ×2 (08:52→20:28)
[2018-10-29] MEDS: levETIRAcetam 500 MG TAB PO SCH ×2 (08:52→20:29)
[2018-10-29] MEDS: Heparin 5,000 UNITS/ML VIAL SC SCH ×2 (08:52→20:30)
[2018-10-29] MEDS: Lorazepam 0.5 MG TAB PO PRN (08:53)
[2018-10-29] MEDS: Carvedilol 6.25 MG TAB PO SCH ×2 (09:00→16:36)
[2018-10-29] MEDS: Amlodipine 5 MG TAB PO SCH ×2 (09:01→11:59)
--- NOTE | 2018-10-29 10:07 | PRG ---
DATE OF SERVICE: 10/29/2018 SUBJECTIVE: Ms. Kaba is doing well today after basilic vein transposition fistula of her right arm. Her dressings are dry. She has a good thrill and bruit heard over their dressings. The patient is sleeping. She is receiving Tylenol, Ativan, and Ultram for pain. The daughter awakens when I entered the room and states that Ultram does not work for her and she need more pain medicines. The patient is sleeping and not in any pain. I have informed the daughter of this. In my opinion, the patient does not need anything stronger than Tylenol and Ultram. She has taken periodic Ativan. At this point, I will leave her dressings on today and I will look at her wound tomorrow. From the surgery standpoint, she can be discharged home anytime medically stable. I can follow her in the office in 2 weeks. The family can remove the dressing in the next 24 to 48 hours. Wash the wound with soap and water daily. Leave it open or wrap depending upon any drainage. Job ID: [id number]
--- NOTE | 2018-10-29 14:11 | DIS ---
DATE OF ADMISSION: 10/27/2018 DATE OF DISCHARGE: 10/29/2018 DISCHARGE DISPOSITION: Home. FOLLOWUP: 1. Follow up with primary care physician, Dr. Miller Bolivar in 1 week. 2. Follow up with Dr. Blanc in 2 weeks. 3. Follow up with Cardiology, Dr. Singh for outpatient hemodialysis. The patient was seen and examined on the day of discharge. Denies any new complaints. No chest pain, shortness of breath, or palpitations reported. Pain controlled. DISCHARGE MEDICATIONS: 1. Bactrim single strength one tablet twice daily for next 5 days for UTI. 2. Lorazepam 0.5 mg daily as needed for anxiety for 1 week. 3. Tramadol as needed. 4. All other home medications were left unchanged. The patient was advised to discontinue Plavix while she is on aspirin and Brilinta. BRIEF HOSPITAL COURSE: The patient is a 52-year-old female with coronary artery disease; status post stent placement; diabetes mellitus type 2, end-stage renal disease, on hemodialysis; and congestive heart failure with a recent echocardiogram, 40% to 45% ejection fraction, presented to the emergency room with worsening shortness of breath and hypoxemia. Her O2 saturation in the emergency room was 83%. She received 80 mg IV Lasix in the ER. Please refer to the history and physical for further details. The patient was admitted to the hospital with a diagnosis of acute hypoxic respiratory failure secondary to acute on chronic systolic heart failure exacerbation/volume overload. Symptoms improved with 2 dialysis session. She also underwent basilic vein transposition fistula by Dr. Blanc, which was originally scheduled as outpatient. The pain is controlled with tramadol. She was also found to have urinary tract infection secondary to E coli. Urine sensitivity showed sensitive to Bactrim. She will continue renal dosing for Bactrim. She appears stable for discharge. FINAL DIAGNOSES: 1. Acute hypoxic respiratory failure secondary to acute on chronic systolic heart failure exacerbation/volume overload. She is not a candidate for ESTHER inhibitor due to renal insufficiency. 2. Escherichia coli urinary tract infection. 3. Type 2 myocardial infarction. 4. Coronary artery disease, status post stent placement on aspirin and Brilinta. The patient was advised to resume Brilinta tonight. This was verified with Dr. Blanc. 5. Hypertension. 6. Hyperlipidemia. 7. Ischemic cardiomyopathy. 8. 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 9. Former smoker. 10. Seizure disorder. 11. End-stage renal disease, on hemodialysis. 12. Anemia secondary to renal disease. 13. Mild hyponatremia. 14. Moderate protein-calorie malnutrition. SIGNIFICANT LABS: Troponin on admission was 0.072 with CK-MB of 7.8. PLAN: Plan of care was discussed with the patient and the family in detail. They stated understanding. Job ID: [id number]
[2018-10-29] MEDS: Ferrous Sulfate 325 MG TAB PO SCH (20:29)
[2018-10-29] MEDS: Atorvastatin Calcium 40 MG TAB PO SCH (20:30)
[2018-10-30] MEDS: traMADol HCl 50 MG TAB PO PRN ×4 (03:07→22:38)
[2018-10-30] MEDS: Acetaminophen 500 MG TAB PO PRN ×3 (03:08→22:38)
--- NOTE | 2018-10-30 07:33 | PRG ---
DATE OF SERVICE: 10/29/2018 SUBJECTIVE: Patient was seen and examined at bedside and overnight events noted. Patient denies any shortness of breath or chest pain or palpitation. No history of nausea or vomiting or diarrhea or fever or chills or cramps. OBJECTIVE: GENERAL: This is a thin-built female, in no apparent distress. VITAL SIGNS: Termperature 98.1 Respiratory rate 13. Pulse 76. Blood pressure 130/70. HEENT: Atraumatic, normocephalic. Oral mucosa is moist NECK: Supple. CARDIOVASCULAR: S1, S2 heard. Rate and rhythm regular. RESPIRATORY: Clear to auscultation. GASTROINTESTINAL: Abdomen is soft. MUSCULOSKELETAL: No tenderness. No edema. DERMATOLOGIC: No skin rash. NEUROLOGIC: Alert and awake and oriented X3. No focal neurologic deficits. Moving all the extremities. PSYCHIATRIC: Mood and affect normal. LABORATORY DATA: ASSESSMENT AND PLAN: 1. End-stage renal disease. Continue hemodialysis orders. 2. Edema. 3. Hypertension. 4. Anemia. Continue on dialysis as tolerated. Job ID: [id number]
[2018-10-30] MEDS: Lorazepam 0.5 MG TAB PO PRN (08:26)
[2018-10-30] MEDS ORDERED: Heparin 1,000 UNITS/ML VIAL ONE (11:11)
--- NOTE | 2018-10-30 13:28 | PRG ---
DATE OF SERVICE: 10/30/2018 Annalisa Kaba is doing well today. Her basilic vein transposition wound looks good. There is mild swelling on the upper arm as expected. There was good thrill and bruit over the fistula. The patient should follow up in my office in 2 weeks. She has good hand function. In 2 weeks, we will remove her jamal. In about 4 weeks, we will start accessing the fistula and at that time later day, we can move her catheter. Job ID: [id number]
--- NOTE | 2018-10-30 13:58 | PRG ---
DATE OF SERVICE: 10/30/2018 SUBJECTIVE: A 52-year-old female being seen for end-stage renal disease. The patient denies any nausea, vomiting, or chest pain. OBJECTIVE: CONSTITUTIONAL: On examination, the patient is awake and alert. VITAL SIGNS: Afebrile. Pulse 80, breathing 16, and blood pressure 113/77. GENERAL APPEARANCE AND MENTAL STATUS: Fair. HEAD/NECK: Normocephalic. Atraumatic. EYES: EOMI. No deformity. EARS: Clear. No ulcers. NOSE: Intact. No lesions. MOUTH: Clear. No discharge. THROAT: Clear. No exudate. LUNGS: Clear. No crackles. CARDIAC: S1, S2. No rub. ABDOMEN: Benign. Bowel sounds positive. GENITALIA/RECTUM: Loo absent. BACK/EXTREMITIES: Edema 0+. NEUROLOGICAL: Alert and motor intact. SKIN: LYMPHATICS: LABORATORY DATA: Reviewed. ASSESSMENT AND PLAN: 1. Stage 6 chronic kidney disease. Plan dialysis. 2. Hypertension, stable. 3. Anemia, stable. 4. Medication based on GFR appropriate. Job ID: [id number]
[2018-10-30] MEDS: Carvedilol 6.25 MG TAB PO SCH ×2 (14:37→17:33)
[2018-10-30] MEDS: Aspirin 81 mg Enteric Coated Tablet PO SCH (14:38)
[2018-10-30] MEDS: Amlodipine 5 MG TAB PO SCH (14:38)
[2018-10-30] MEDS: Heparin 5,000 UNITS/ML VIAL SC SCH ×2 (14:39→20:08)
[2018-10-30] MEDS: Gabapentin 100 MG CAP PO SCH ×3 (14:39→20:08)
[2018-10-30] MEDS: Sulfameth/Trimethoprim SS 400-80MG TAB PO SCH ×2 (14:40→20:08)
[2018-10-30] MEDS: levETIRAcetam 500 MG TAB PO SCH ×2 (14:40→20:08)
[2018-10-30] MEDS: Atorvastatin Calcium 40 MG TAB PO SCH (20:08)
[2018-10-30] MEDS: Ferrous Sulfate 325 MG TAB PO SCH (20:08)
--- NOTE | 2018-10-30 22:41 | PDOC.PN ---
- Subjective Encounter Start Date: 10/30/18 Encounter Start Time: 10:30 Patient seen and examined during dialysis. Feels better. SOB improving. Could not leave yesterday due to O2 desaturation. No overnight events - Objective Resuscitation Status - Order Detail: 10/27/18 14:08 Resuscitation Status Routine Resuscitation Status: FULL: Full Resuscitation MAR Reviewed: Yes Vital Signs & Weight: Vital Signs (12 hours) Temp Pulse Resp BP Pulse Ox 10/30/18 21:59 76 16 94 L 10/30/18 20:07 98.9 F 76 18 108/56 L 94 L 10/30/18 18:16 81 16 95 10/30/18 17:30 99.7 F H 87 16 141/67 H 95 10/30/18 14:19 96 16 94 L 10/30/18 13:39 98.4 F 95 16 144/81 H 92 L Weight Weight 151 lb 0.266 oz I&O: 10/29/18 10/30/18 10/31/18 06:59 06:59 06:59 Intake Total 340 960 360 Output Total 2000 0 Balance -1660 960 360 Result Diagrams: 10/28/18 06:50 10/28/18 04:32 Additional Labs: Accuchecks 10/30/18 10/30/18 10/30/18 20:19 16:14 08:15 POC Glucose 207 H 289 H 107 10/30/18 10/30/18 05:17 00:44 POC Glucose 137 H 173 H EKG Reviewed by me: Yes (Tele SR) Phys Exam - Physical Examination Constitutional: NAD Respiratory: no wheezing, no rhonchi Cardiovascular: RRR, no rub Gastrointestinal: soft, positive bowel sounds Neurological: moves all 4 limbs Dx/Plan - Plan DVT proph w/SCDs FINAL DIAGNOSES: 1. Acute hypoxic respiratory failure secondary to acute on chronic systolic heart failure exacerbation/volume overload. ACC stage C. No ACEI/ARB/Aldactone due to CKD. 2. Escherichia coli urinary tract infection - on Bactrim 3. Type 2 myocardial infarction. 4. Coronary artery disease, status post stent placement on aspirin and Brilinta. 5. Hypertension. 6. Hyperlipidemia. 7. Ischemic cardiomyopathy. 8. 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 9. Former smoker. 10. Seizure disorder. 11. End-stage renal disease, on hemodialysis. 12. Anemia secondary to renal disease. 13. Mild hyponatremia. 14. Moderate protein-calorie malnutrition. PLAN: Dialysis MWF [facility] [place] in AM Home O2 setup Cont Bactrim Cont current meds as below Cont home Insulin pump Counselled on CHF DC home after O2 setup. Review of Systems - Review of Systems Cardiovascular: negative: chest pain, palpitations, orthopnea, paroxysmal nocturnal dyspnea, edema, light headedness, other Gastrointestinal: negative: Nausea, Vomiting, Abdominal Pain, Diarrhea, Constipation, Melena, Hematochezia, Other - Medications/Allergies Allergies/Adverse Reactions: Allergies Allergy/AdvReac Type Severity Reaction Status Date / Time camphor Allergy Anaphylaxis Verified 10/23/18 16:01 cephalexin [From Keflex] Allergy Anaphylaxis Verified 10/23/18 16:01 ciprofloxacin [From Cipro] Allergy Anaphylaxis Verified 10/23/18 16:01 hydralazine Allergy Anaphylaxis Verified 10/23/18 16:01 insulin lispro Allergy Anaphylaxis Verified 10/23/18 16:01 [From Humalog Mix] insulin lispro protamine Allergy Anaphylaxis Verified 10/23/18 16:01 [From Humalog Mix] latex Allergy Anaphylaxis Verified 10/23/18 16:01 lisinopril Allergy Anaphylaxis Verified 10/23/18 16:01 naproxen [From Naprosyn] Allergy Anaphylaxis Verified 10/23/18 16:01 Medications: Current Medications Acetaminophen (Tylenol) 1,000 mg PO Q6H PRN PRN Reason: Moderate to Severe Pain (6-10) Last Admin: 10/30/18 22:38 Dose: 1,000 mg Albuterol/Ipratropium (Duoneb) 3 ml NEB Q4H PRN PRN Reason: SOB &/or Wheezing Albuterol/Ipratropium (Duoneb) 3 ml NEB [id number] [facility] Last Admin: 10/30/18 21:59 Dose: 3 ml Amlodipine Besylate (Norvasc) 5 mg PO QAM [facility] Last Admin: 10/30/18 14:38 Dose: 5 mg Aspirin (Ecotrin) 81 mg PO DAILY [facility] Last Admin: 10/30/18 14:38 Dose: 81 mg Atorvastatin Calcium (Lipitor) 40 mg PO HS [facility] Last Admin: 10/30/18 20:08 Dose: 40 mg Calcium Carbonate (Tums) 1,000 mg PO Q4H PRN PRN Reason: Heartburn or Indigestion Carvedilol (Coreg) 12.5 mg PO BID-[facility] Last Admin: 10/30/18 17:33 Dose: 12.5 mg Cholecalciferol (Vitamin D3) 1,000 units PO QPM [facility] Last Admin: 10/30/18 20:06 Dose: 1,000 units Dextrose/Water (Dextrose 50%) 25 gm SLOW IVP PRN PRN PRN Reason: Hypoglycemia Ferrous Sulfate (Feosol) 325 mg PO QPM [facility] Last Admin: 10/30/18 20:08 Dose: 325 mg Gabapentin (Neurontin) 100 mg PO TID [facility] Last Admin: 10/30/18 20:08 Dose: 100 mg Glucagon (Glucagon) 1 mg IM PRN PRN PRN Reason: Hypoglycemia Heparin Sodium (Porcine) (Heparin) 5,000 units SC BID [facility] Last Admin: 10/30/18 20:08 Dose: 5,000 units Dextrose/Water (D5w) 1,000 mls @ 0 mls/hr IV .Q0M PRN PRN Reason: Hypoglycemia Insulin Human Regular (Humulin R) 0 units SC .MILD SLIDING SCALE PRN PRN Reason: Mild Correctional Scale Insulin Human Regular (Humulin R) 0 units SC .BEDTIME SLIDING SC PRN PRN Reason: Bedtime Correctional Scale Isosorbide Mononitrate (Imdur) 120 mg PO QAM [facility] Last Admin: 10/30/18 14:39 Dose: 120 mg Levetiracetam (Keppra) 500 mg PO BID [facility] Last Admin: 10/30/18 20:08 Dose: 500 mg Lorazepam (Ativan) 0.5 mg PO BIDPRN PRN PRN Reason: Anxiety Last Admin: 10/30/18 08:26 Dose: 0.5 mg Miscellaneous Medication (Pharmacy To Dose) 1 each PO PRN PRN PRN Reason: Pharmacy to dose Ondansetron HCl (Zofran Odt) 4 mg PO Q6H PRN PRN Reason: Nausea/Vomiting Ondansetron HCl (Zofran) 4 mg IVP Q6H PRN PRN Reason: Nausea/Vomiting Pantoprazole Sodium (Protonix) 40 mg PO DAILY [facility] Last Admin: 10/30/18 14:40 Dose: 40 mg Senna/Docusate Sodium (Senokot S) 2 tab PO BIDPRN PRN PRN Reason: Constipation Sodium Chloride (Flush - Normal Saline) 10 ml IVF PRN PRN PRN Reason: Saline Flush Tramadol HCl (Ultram) 50 mg PO Q6H PRN PRN Reason: Pain 1-5 Last Admin: 10/30/18 22:38 Dose: 50 mg Trimethoprim/Sulfamethoxazole (Bactrim Ss) 1 tab PO Q12HR [facility] Last Admin: 10/30/18 20:08 Dose: 1 tab
[2018-10-31 08:15] LABS: Anion Gap 10 mmol/L (10-20); BUN (Urea Nitrogen) 20 mg/dL (9.8-20.1); Calc. Creatinine Clearance 26 mL/min (70-130); Calcium 8.4 mg/dL (7.8-10.44); Carbon Dioxide 32 mmol/L (22-29); Chloride 100 mmol/L (98-107); Estimated GFR-MDRD 18; Glucose 113 mg/dL (70-105); Potassium 4.1 mmol/L (3.5-5.1); Sodium 138 mmol/L (136-145)
[2018-10-31] MEDS: Acetaminophen 500 MG TAB PO PRN ×3 (08:22→20:25)
[2018-10-31] MEDS: traMADol HCl 50 MG TAB PO PRN ×3 (08:23→20:24)
[2018-10-31] MEDS: Sulfameth/Trimethoprim SS 400-80MG TAB PO SCH ×2 (08:24→20:24)
[2018-10-31] MEDS: Aspirin 81 mg Enteric Coated Tablet PO SCH (08:24)
[2018-10-31] MEDS: Amlodipine 5 MG TAB PO SCH (08:25)
[2018-10-31] MEDS: levETIRAcetam 500 MG TAB PO SCH ×2 (08:25→20:25)
[2018-10-31] MEDS: TICAGRELOR 90 MG TABLET PO SCH ×2 (08:25→20:25)
[2018-10-31] MEDS: Carvedilol 6.25 MG TAB PO SCH ×2 (08:25→16:46)
[2018-10-31] MEDS: Gabapentin 100 MG CAP PO SCH ×3 (08:25→20:25)
[2018-10-31 08:26] LABS: #Eosinphils 0.2 thou/uL (0.0-0.7); #Lymphocytes 1.1 thou/uL (1.20-3.40); #Monocytes 0.5 thou/uL (0.11-0.59); #Neutrophils 2.3 thou/uL (1.40-6.50); %Basophils 0.8 % (0.0-1.0); %Eosinophils 5.4 % (0.0-10.0); %Lymphocytes 26.1 % (21.0-51.0); %Monocytes 11.6 % (0.0-10.0); %Neutrophils 56.1 % (42.0-75.0); Hemoglobin 8.7 g/dL (12.0-16.0); Mean Corpuscular HGB CONC 31.6 g/dL (32.0-36.0); Mean Corpuscular Hemoglobin 28.4 pg (27.0-31.0); Mean Platelet Volume 8.6 fL (7.4-10.4); Platelet Count 195 thou/uL (130-400); RBC Distribution Width 16.6 % (11.5-14.5); Red Blood Cell (RBC) Count 3.06 mill/uL (4.20-5.40); White Blood Cell (WBC) Count 4.1 thou/uL (4.8-10.8)
--- NOTE | 2018-10-31 14:02 | PRG ---
DATE OF SERVICE: 10/31/2018 SUBJECTIVE: A 52-year-old female being seen for end-stage renal disease. The patient denied any nausea, vomiting, or chest pain. OBJECTIVE: CONSTITUTIONAL: On examination, the patient is awake and alert. VITAL SIGNS: Afebrile, pulse 76, breathing 16, and blood pressure 116/63. GENERAL APPEARANCE AND MENTAL STATUS: Fair. HEAD/NECK: Normocephalic. Atraumatic. EYES: EOMI. No deformity. EARS: Clear. No ulcers. NOSE: Intact. No lesions. MOUTH: Clear. No discharge. THROAT: Clear. No exudate. LUNGS: Clear. No crackles. CARDIAC: S1, S2. No rub. ABDOMEN: Benign. Bowel sounds positive. GENITALIA/RECTUM: Loo absent. BACK/EXTREMITIES: Edema 0+. NEUROLOGICAL: Alert and motor intact. LABORATORY DATA: Labs reviewed. ASSESSMENT AND PLAN: 1. Stage 6 chronic kidney disease. Plan dialysis. 2. Hypertension, stable. 3. Anemia, stable. 4. Medications based on glomerular filtration rate are appropriate. Job ID: [id number]
--- NOTE | 2018-10-31 16:57 | PDOC.PN ---
- Subjective Encounter Start Date: 10/31/18 Encounter Start Time: 13:30 Patient seen and examined for CHF. RUE discomfort - slightly better. No new complaints. No overnight events - Objective Resuscitation Status - Order Detail: 10/27/18 14:08 Resuscitation Status Routine Resuscitation Status: FULL: Full Resuscitation MAR Reviewed: Yes Vital Signs & Weight: Vital Signs (12 hours) Temp Pulse Resp BP Pulse Ox 10/31/18 14:19 72 24 H 10/31/18 12:21 98.7 F 76 20 116/63 96 10/31/18 10:26 100 10/31/18 10:25 76 20 100 10/31/18 07:52 98.2 F 77 20 119/70 94 L Weight Weight 152 lb 1.903 oz I&O: 10/30/18 10/31/18 11/01/18 06:59 06:59 06:59 Intake Total 960 600 Output Total 0 0 Balance 960 600 Result Diagrams: 10/31/18 07:00 10/31/18 07:00 Additional Labs: Accuchecks 10/31/18 10/31/18 10/31/18 08:18 05:34 01:08 POC Glucose 117 H 133 H 163 H 10/30/18 20:19 POC Glucose 207 H EKG Reviewed by me: Yes (Tele SR) Phys Exam - Physical Examination Constitutional: NAD Respiratory: no wheezing, no rhonchi Decreased AE at bases B/L Cardiovascular: RRR, no rub Gastrointestinal: soft, non-tender, positive bowel sounds Neurological: moves all 4 limbs Dx/Plan - Plan DVT proph w/SCDs FINAL DIAGNOSES: 1. Acute hypoxic respiratory failure secondary to acute on chronic systolic heart failure exacerbation/volume overload. ACC stage C. 2. Escherichia coli urinary tract infection - on Bactrim 3. Type 2 myocardial infarction. 4. Coronary artery disease, status post stent placement on aspirin and Brilinta. 5. Hypertension. 6. Hyperlipidemia. 7. Ischemic cardiomyopathy. 8. 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 9. Former smoker. 10. Seizure disorder. 11. End-stage renal disease, on hemodialysis. 12. Anemia secondary to renal disease. 13. Mild hyponatremia. 14. Moderate protein-calorie malnutrition. PLAN: No ACEI/ARB/Aldactone due to CKD. Dialysis per Nephrology Cont current meds as below including home Insulin pump DC home after O2 setup. Stable for discharge. Review of Systems - Review of Systems Respiratory: SOB with Excertion. negative: Cough, Dry, Shortness of Breath, Hemoptysis, Pleuritic Pain, Sputum, Wheezing Cardiovascular: negative: chest pain, palpitations, orthopnea, paroxysmal nocturnal dyspnea, edema, light headedness, other Gastrointestinal: negative: Nausea, Vomiting, Abdominal Pain, Diarrhea, Constipation, Melena, Hematochezia, Other - Medications/Allergies Allergies/Adverse Reactions: Allergies Allergy/AdvReac Type Severity Reaction Status Date / Time camphor Allergy Anaphylaxis Verified 10/23/18 16:01 cephalexin [From Keflex] Allergy Anaphylaxis Verified 10/23/18 16:01 ciprofloxacin [From Cipro] Allergy Anaphylaxis Verified 10/23/18 16:01 hydralazine Allergy Anaphylaxis Verified 10/23/18 16:01 insulin lispro Allergy Anaphylaxis Verified 10/23/18 16:01 [From Humalog Mix] insulin lispro protamine Allergy Anaphylaxis Verified 10/23/18 16:01 [From Humalog Mix] latex Allergy Anaphylaxis Verified 10/23/18 16:01 lisinopril Allergy Anaphylaxis Verified 10/23/18 16:01 naproxen [From Naprosyn] Allergy Anaphylaxis Verified 10/23/18 16:01 Medications: Current Medications Acetaminophen (Tylenol) 1,000 mg PO Q6H PRN PRN Reason: Moderate to Severe Pain (6-10) Last Admin: 10/31/18 14:32 Dose: 1,000 mg Albuterol/Ipratropium (Duoneb) 3 ml NEB Q4H PRN PRN Reason: SOB &/or Wheezing Albuterol/Ipratropium (Duoneb) 3 ml NEB [id number] [facility] Last Admin: 10/31/18 14:19 Dose: 3 ml Amlodipine Besylate (Norvasc) 5 mg PO QAM [facility] Last Admin: 10/31/18 08:25 Dose: 5 mg Aspirin (Ecotrin) 81 mg PO DAILY [facility] Last Admin: 10/31/18 08:24 Dose: 81 mg Atorvastatin Calcium (Lipitor) 40 mg PO HS [facility] Last Admin: 10/30/18 20:08 Dose: 40 mg Calcium Carbonate (Tums) 1,000 mg PO Q4H PRN PRN Reason: Heartburn or Indigestion Carvedilol (Coreg) 12.5 mg PO BID-[facility] Last Admin: 10/31/18 16:46 Dose: 12.5 mg Cholecalciferol (Vitamin D3) 1,000 units PO QPM [facility] Last Admin: 10/30/18 20:06 Dose: 1,000 units Dextrose/Water (Dextrose 50%) 25 gm SLOW IVP PRN PRN PRN Reason: Hypoglycemia Ferrous Sulfate (Feosol) 325 mg PO QPM [facility] Last Admin: 10/30/18 20:08 Dose: 325 mg Gabapentin (Neurontin) 100 mg PO TID [facility] Last Admin: 10/31/18 14:32 Dose: 100 mg Glucagon (Glucagon) 1 mg IM PRN PRN PRN Reason: Hypoglycemia Dextrose/Water (D5w) 1,000 mls @ 0 mls/hr IV .Q0M PRN PRN Reason: Hypoglycemia Insulin Human Regular (Humulin R) 0 units SC .MILD SLIDING SCALE PRN PRN Reason: Mild Correctional Scale Insulin Human Regular (Humulin R) 0 units SC .BEDTIME SLIDING SC PRN PRN Reason: Bedtime Correctional Scale Isosorbide Mononitrate (Imdur) 120 mg PO QAM [facility] Last Admin: 10/31/18 08:25 Dose: 120 mg Levetiracetam (Keppra) 500 mg PO BID [facility] Last Admin: 10/31/18 08:25 Dose: 500 mg Lorazepam (Ativan) 0.5 mg PO BIDPRN PRN PRN Reason: Anxiety Last Admin: 10/30/18 08:26 Dose: 0.5 mg Miscellaneous Medication (Pharmacy To Dose) 1 each PO PRN PRN PRN Reason: Pharmacy to dose Ondansetron HCl (Zofran Odt) 4 mg PO Q6H PRN PRN Reason: Nausea/Vomiting Ondansetron HCl (Zofran) 4 mg IVP Q6H PRN PRN Reason: Nausea/Vomiting Pantoprazole Sodium (Protonix) 40 mg PO DAILY [facility] Last Admin: 10/31/18 08:25 Dose: 40 mg Senna/Docusate Sodium (Senokot S) 2 tab PO BIDPRN PRN PRN Reason: Constipation Sodium Chloride (Flush - Normal Saline) 10 ml IVF PRN PRN PRN Reason: Saline Flush Last Admin: 10/31/18 08:26 Dose: 10 ml Ticagrelor (Brilinta) 90 mg PO BID [facility] Last Admin: 10/31/18 08:25 Dose: 90 mg Tramadol HCl (Ultram) 50 mg PO Q6H PRN PRN Reason: Pain 1-5 Last Admin: 10/31/18 14:32 Dose: 50 mg Trimethoprim/Sulfamethoxazole (Bactrim Ss) 1 tab PO Q12HR [facility] Last Admin: 10/31/18 08:24 Dose: 1 tab
[2018-10-31] MEDS: Atorvastatin Calcium 40 MG TAB PO SCH (20:23)
[2018-10-31] MEDS: Ferrous Sulfate 325 MG TAB PO SCH (20:24)
[2018-10-31] MEDS ORDERED: Morphine 4 MG/ML VIAL ONE (22:42)
[2018-10-31] MEDS ORDERED: Morphine 2 MG/ML SYRINGE SLOW IVP SCH (22:45)
[2018-11-01] MEDS: traMADol HCl 50 MG TAB PO PRN ×4 (02:26→21:16)
[2018-11-01] MEDS: Acetaminophen 500 MG TAB PO PRN ×4 (02:27→21:16)
[2018-11-01 06:16] LABS: Hemoglobin 7.8 g/dL (12.0-16.0); Platelet Count 195 thou/uL (130-400)
[2018-11-01] MEDS: Carvedilol 6.25 MG TAB PO SCH ×2 (08:54→16:22)
[2018-11-01] MEDS: levETIRAcetam 500 MG TAB PO SCH ×2 (08:55→21:17)
[2018-11-01] MEDS: TICAGRELOR 90 MG TABLET PO SCH ×2 (08:56→21:18)
[2018-11-01] MEDS: Aspirin 81 mg Enteric Coated Tablet PO SCH (08:56)
[2018-11-01] MEDS: Amlodipine 5 MG TAB PO SCH (08:56)
[2018-11-01] MEDS: Sulfameth/Trimethoprim SS 400-80MG TAB PO SCH ×2 (08:56→21:17)
[2018-11-01] MEDS: Gabapentin 100 MG CAP PO SCH ×3 (08:56→21:17)
[2018-11-01] MEDS ORDERED: Epoetin (ESRD) 10,000 UNITS/ML VIAL SC SCH (10:00)
[2018-11-01] MEDS ORDERED: EPOETIN ALFA-EPBX (ESRD) 10,000 UNIT/ML VIAL SC SCH (12:00)
--- NOTE | 2018-11-01 12:40 | PRG ---
DATE OF SERVICE: 11/01/2018 SUBJECTIVE: A 52-year-old female, being seen for end-stage renal disease. The patient denied any nausea, vomiting, or chest pain. The patient denied any nausea, vomiting, or chest pain. OBJECTIVE: CONSTITUTIONAL: On examination, the patient is awake and alert. VITAL SIGNS: Afebrile, pulse 65, breathing 16, and blood pressure 112/59. GENERAL APPEARANCE AND MENTAL STATUS: Fair. HEAD/NECK: Normocephalic. Atraumatic. EYES: EOMI. No deformity. EARS: Clear. No ulcers. NOSE: Intact. No lesions. MOUTH: Clear. No discharge. THROAT: Clear. No exudate. LUNGS: Clear. No crackles. CARDIAC: S1, S2. No rub. ABDOMEN: Benign. Bowel sounds positive. GENITALIA/RECTUM: Loo absent. BACK/EXTREMITIES: Edema 0+. NEUROLOGICAL: Alert and motor intact. SKIN: LYMPHATICS: LABORATORY DATA: Labs show hemoglobin 7.8, creatinine 2.7. ASSESSMENT AND PLAN: 1. Stage 6 chronic kidney disease, stable. 2. Hypertension, stable. 3. Anemia, plan Epogen. 4. Medication based on GFR appropriate. Job ID: [id number]
--- NOTE | 2018-11-01 15:32 | PDOC.PN ---
- Subjective Encounter Start Date: 11/01/18 Encounter Start Time: 10:10 Patient seen and examined for CHF. Pain controlled. No CP. No new complaints. No overnight events - Objective Resuscitation Status - Order Detail: 10/27/18 14:08 Resuscitation Status Routine Resuscitation Status: FULL: Full Resuscitation MAR Reviewed: Yes Vital Signs & Weight: Vital Signs (12 hours) Temp Pulse Resp BP Pulse Ox 11/01/18 15:04 98.1 F 82 18 138/71 95 11/01/18 13:54 76 18 95 11/01/18 12:25 97.8 F 83 18 108/55 L 92 L 11/01/18 11:26 76 20 100 11/01/18 08:50 98.3 F 78 18 153/72 H 97 11/01/18 04:00 97.9 F 77 18 112/59 L 97 Weight Weight 154 lb 5.177 oz I&O: 10/31/18 11/01/18 11/02/18 06:59 06:59 06:59 Intake Total 600 840 Output Total 0 200 Balance 600 640 Result Diagrams: 11/01/18 05:40 10/31/18 07:00 Additional Labs: Accuchecks 11/01/18 11/01/18 11/01/18 12:29 08:55 04:15 POC Glucose 224 H 199 H 267 H 11/01/18 10/31/18 00:04 20:12 POC Glucose 316 H 366 H EKG Reviewed by me: Yes (Tele SR) Phys Exam - Physical Examination Constitutional: NAD Respiratory: no wheezing, no rhonchi Cardiovascular: RRR, no rub Gastrointestinal: soft, non-tender, positive bowel sounds Neurological: moves all 4 limbs Dx/Plan - Plan DVT proph w/SCDs FINAL DIAGNOSES: 1. Acute hypoxic respiratory failure secondary to acute on chronic systolic heart failure exacerbation/volume overload. ACC stage C. 2. Escherichia coli urinary tract infection - on Bactrim 3. Type 2 myocardial infarction/Demand ischemia 4. Coronary artery disease, status post stent placement on aspirin and Brilinta. 5. Hypertension. 6. Hyperlipidemia. 7. Ischemic cardiomyopathy. 8. 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 9. Former smoker. 10. Seizure disorder. 11. End-stage renal disease, on hemodialysis. 12. Anemia secondary to renal disease. 13. Mild hyponatremia. 14. Moderate protein-calorie malnutrition. PLAN: HH in AM Dialysis per Nephrology Cont current meds as below including home Insulin pump No ACEI/ARB/Aldactone due to CKD. DC home after O2 setup. Stable for discharge. Review of Systems - Review of Systems Respiratory: negative: Cough, Dry, Shortness of Breath, Hemoptysis, SOB with Excertion, Pleuritic Pain, Sputum, Wheezing Cardiovascular: negative: chest pain, palpitations, orthopnea, paroxysmal nocturnal dyspnea, edema, light headedness, other - Medications/Allergies Allergies/Adverse Reactions: Allergies Allergy/AdvReac Type Severity Reaction Status Date / Time camphor Allergy Anaphylaxis Verified 10/23/18 16:01 cephalexin [From Keflex] Allergy Anaphylaxis Verified 10/23/18 16:01 ciprofloxacin [From Cipro] Allergy Anaphylaxis Verified 10/23/18 16:01 hydralazine Allergy Anaphylaxis Verified 10/23/18 16:01 insulin lispro Allergy Anaphylaxis Verified 10/23/18 16:01 [From Humalog Mix] insulin lispro protamine Allergy Anaphylaxis Verified 10/23/18 16:01 [From Humalog Mix] latex Allergy Anaphylaxis Verified 10/23/18 16:01 lisinopril Allergy Anaphylaxis Verified 10/23/18 16:01 naproxen [From Naprosyn] Allergy Anaphylaxis Verified 10/23/18 16:01 Medications: Current Medications Acetaminophen (Tylenol) 1,000 mg PO Q6H PRN PRN Reason: Moderate to Severe Pain (6-10) Last Admin: 11/01/18 15:06 Dose: 1,000 mg Albuterol/Ipratropium (Duoneb) 3 ml NEB Q4H PRN PRN Reason: SOB &/or Wheezing Albuterol/Ipratropium (Duoneb) 3 ml NEB [id number] [facility] Last Admin: 11/01/18 13:54 Dose: 3 ml Amlodipine Besylate (Norvasc) 5 mg PO QAM [facility] Last Admin: 11/01/18 08:56 Dose: 5 mg Aspirin (Ecotrin) 81 mg PO DAILY [facility] Last Admin: 11/01/18 08:56 Dose: 81 mg Atorvastatin Calcium (Lipitor) 40 mg PO HS [facility] Last Admin: 10/31/18 20:23 Dose: 40 mg Calcium Carbonate (Tums) 1,000 mg PO Q4H PRN PRN Reason: Heartburn or Indigestion Carvedilol (Coreg) 12.5 mg PO BID-[facility] [place] Last Admin: 11/01/18 08:54 Dose: 12.5 mg Cholecalciferol (Vitamin D3) 1,000 units PO QPM [facility] Last Admin: 10/31/18 20:25 Dose: 1,000 units Dextrose/Water (Dextrose 50%) 25 gm SLOW IVP PRN PRN PRN Reason: Hypoglycemia Ferrous Sulfate (Feosol) 325 mg PO QPM [facility] Last Admin: 10/31/18 20:24 Dose: 325 mg Gabapentin (Neurontin) 100 mg PO TID [facility] Last Admin: 11/01/18 15:06 Dose: 100 mg Glucagon (Glucagon) 1 mg IM PRN PRN PRN Reason: Hypoglycemia Dextrose/Water (D5w) 1,000 mls @ 0 mls/hr IV .Q0M PRN PRN Reason: Hypoglycemia Insulin Human Regular (Humulin R) 0 units SC .MILD SLIDING SCALE PRN PRN Reason: Mild Correctional Scale Insulin Human Regular (Humulin R) 0 units SC .BEDTIME SLIDING SC PRN PRN Reason: Bedtime Correctional Scale Isosorbide Mononitrate (Imdur) 120 mg PO QAM [facility] Last Admin: 11/01/18 08:56 Dose: 120 mg Levetiracetam (Keppra) 500 mg PO BID [facility] Last Admin: 11/01/18 08:55 Dose: 500 mg Lorazepam (Ativan) 0.5 mg PO BIDPRN PRN PRN Reason: Anxiety Last Admin: 10/30/18 08:26 Dose: 0.5 mg Miscellaneous Medication (Pharmacy To Dose) 1 each PO PRN PRN PRN Reason: Pharmacy to dose Ondansetron HCl (Zofran Odt) 4 mg PO Q6H PRN PRN Reason: Nausea/Vomiting Ondansetron HCl (Zofran) 4 mg IVP Q6H PRN PRN Reason: Nausea/Vomiting Pantoprazole Sodium (Protonix) 40 mg PO DAILY [facility] Last Admin: 11/01/18 08:56 Dose: 40 mg Senna/Docusate Sodium (Senokot S) 2 tab PO BIDPRN PRN PRN Reason: Constipation Sodium Chloride (Flush - Normal Saline) 10 ml IVF PRN PRN PRN Reason: Saline Flush Last Admin: 11/01/18 08:57 Dose: 10 ml Ticagrelor (Brilinta) 90 mg PO BID [facility] Last Admin: 11/01/18 08:56 Dose: Not Given Tramadol HCl (Ultram) 50 mg PO Q6H PRN PRN Reason: Pain 1-5 Last Admin: 11/01/18 15:06 Dose: 50 mg Trimethoprim/Sulfamethoxazole (Bactrim Ss) 1 tab PO Q12HR [facility] Last Admin: 11/01/18 08:56 Dose: 1 tab
[2018-11-01] MEDS: Atorvastatin Calcium 40 MG TAB PO SCH (21:16)
[2018-11-01] MEDS: Lorazepam 0.5 MG TAB PO PRN (21:17)
[2018-11-01] MEDS: Ferrous Sulfate 325 MG TAB PO SCH (21:17)
[2018-11-02] MEDS: Acetaminophen 500 MG TAB PO PRN ×2 (02:45→13:39)
[2018-11-02] MEDS: traMADol HCl 50 MG TAB PO PRN ×2 (02:45→13:38)
[2018-11-02 06:19] LABS: Hemoglobin 8.1 g/dL (12.0-16.0)
[2018-11-02] MEDS: Lorazepam 0.5 MG TAB PO PRN (08:35)
[2018-11-02] MEDS: levETIRAcetam 500 MG TAB PO SCH (08:35)
[2018-11-02] MEDS ORDERED: Heparin 10,000 UNITS/ 10 ML VIAL ONE (12:00)
--- NOTE | 2018-11-02 12:20 | PDOC.PN ---
- Subjective Encounter Start Date: 11/02/18 Encounter Start Time: 11:30 Patient seen and examined for CHF during dialysis. No CP/SOB. Feels better. No new complaints. No overnight events - Objective Resuscitation Status - Order Detail: 10/27/18 14:08 Resuscitation Status Routine Resuscitation Status: FULL: Full Resuscitation MAR Reviewed: Yes Vital Signs & Weight: Vital Signs (12 hours) Temp Pulse Resp BP BP Pulse Ox 11/02/18 10:37 72 16 99 11/02/18 08:19 97.8 F 80 14 129/69 97 11/02/18 08:00 99 11/02/18 07:11 90 L 11/02/18 07:09 73 16 90 L 11/02/18 03:48 96 11/02/18 03:37 97.9 F 73 13 126/70 96 Weight Weight 150 lb I&O: 11/01/18 11/02/18 11/03/18 06:59 06:59 06:59 Intake Total 840 600 Output Total 200 Balance 640 600 Result Diagrams: 11/02/18 05:33 10/31/18 07:00 Additional Labs: Accuchecks 11/02/18 11/02/18 11/01/18 04:25 00:19 20:49 POC Glucose 339 H 229 H 273 H 11/01/18 11/01/18 17:06 12:29 POC Glucose 262 H 224 H Phys Exam - Physical Examination Constitutional: NAD Respiratory: no wheezing, no rhonchi few rales at bases Cardiovascular: RRR, no rub Gastrointestinal: soft, positive bowel sounds Neurological: moves all 4 limbs Dx/Plan - Plan DVT proph w/SCDs FINAL DIAGNOSES: 1. Acute hypoxic respiratory failure secondary to acute on chronic systolic heart failure exacerbation/volume overload. ACC stage C. No ACEI/ARB/Aldactone due to CKD. 2. Escherichia coli urinary tract infection - on Bactrim 3. Type 2 myocardial infarction/Demand ischemia 4. Coronary artery disease, status post stent placement on aspirin and Brilinta. 5. Hypertension. 6. Hyperlipidemia. 7. Ischemic cardiomyopathy. 8. 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 9. Former smoker. 10. Seizure disorder. 11. End-stage renal disease, on hemodialysis. 12. Anemia secondary to renal disease. 13. Mild hyponatremia. 14. Moderate protein-calorie malnutrition. PLAN: Dialysis per Nephrology DC home later today after O2 setup. Stable for discharge. Cont current meds as below including home Insulin pump Review of Systems - Review of Systems Respiratory: negative: Cough, Dry, Shortness of Breath, Hemoptysis, SOB with Excertion, Pleuritic Pain, Sputum, Wheezing Cardiovascular: negative: chest pain, palpitations, orthopnea, paroxysmal nocturnal dyspnea, edema, light headedness, other Gastrointestinal: negative: Nausea, Vomiting, Abdominal Pain, Diarrhea, Constipation, Melena, Hematochezia, Other - Medications/Allergies Allergies/Adverse Reactions: Allergies Allergy/AdvReac Type Severity Reaction Status Date / Time camphor Allergy Anaphylaxis Verified 10/23/18 16:01 cephalexin [From Keflex] Allergy Anaphylaxis Verified 10/23/18 16:01 ciprofloxacin [From Cipro] Allergy Anaphylaxis Verified 10/23/18 16:01 hydralazine Allergy Anaphylaxis Verified 10/23/18 16:01 insulin lispro Allergy Anaphylaxis Verified 10/23/18 16:01 [From Humalog Mix] insulin lispro protamine Allergy Anaphylaxis Verified 10/23/18 16:01 [From Humalog Mix] latex Allergy Anaphylaxis Verified 10/23/18 16:01 lisinopril Allergy Anaphylaxis Verified 10/23/18 16:01 naproxen [From Naprosyn] Allergy Anaphylaxis Verified 10/23/18 16:01 Medications: Current Medications Acetaminophen (Tylenol) 1,000 mg PO Q6H PRN PRN Reason: Moderate to Severe Pain (6-10) Last Admin: 11/02/18 02:45 Dose: 1,000 mg Albuterol/Ipratropium (Duoneb) 3 ml NEB Q4H PRN PRN Reason: SOB &/or Wheezing Albuterol/Ipratropium (Duoneb) 3 ml NEB [id number] [facility] Last Admin: 11/02/18 10:37 Dose: 3 ml Amlodipine Besylate (Norvasc) 5 mg PO QAM [facility] Last Admin: 11/01/18 08:56 Dose: 5 mg Aspirin (Ecotrin) 81 mg PO DAILY [facility] Last Admin: 11/01/18 08:56 Dose: 81 mg Atorvastatin Calcium (Lipitor) 40 mg PO HS [facility] Last Admin: 11/01/18 21:16 Dose: 40 mg Calcium Carbonate (Tums) 1,000 mg PO Q4H PRN PRN Reason: Heartburn or Indigestion Carvedilol (Coreg) 12.5 mg PO BID-[facility] Last Admin: 11/01/18 16:22 Dose: 12.5 mg Cholecalciferol (Vitamin D3) 1,000 units PO QPM [facility] Last Admin: 11/01/18 21:16 Dose: 1,000 units Dextrose/Water (Dextrose 50%) 25 gm SLOW IVP PRN PRN PRN Reason: Hypoglycemia Ferrous Sulfate (Feosol) 325 mg PO QPM [facility] Last Admin: 11/01/18 21:17 Dose: 325 mg Gabapentin (Neurontin) 100 mg PO TID [facility] Last Admin: 11/01/18 21:17 Dose: 100 mg Glucagon (Glucagon) 1 mg IM PRN PRN PRN Reason: Hypoglycemia Dextrose/Water (D5w) 1,000 mls @ 0 mls/hr IV .Q0M PRN PRN Reason: Hypoglycemia Insulin Human Regular (Humulin R) 0 units SC .MILD SLIDING SCALE PRN PRN Reason: Mild Correctional Scale Insulin Human Regular (Humulin R) 0 units SC .BEDTIME SLIDING SC PRN PRN Reason: Bedtime Correctional Scale Isosorbide Mononitrate (Imdur) 120 mg PO QAM [facility] Last Admin: 11/01/18 08:56 Dose: 120 mg Levetiracetam (Keppra) 500 mg PO BID [facility] Last Admin: 11/02/18 08:35 Dose: 500 mg Lorazepam (Ativan) 0.5 mg PO BIDPRN PRN PRN Reason: Anxiety Last Admin: 11/02/18 08:35 Dose: 0.5 mg Miscellaneous Medication (Pharmacy To Dose) 1 each PO PRN PRN PRN Reason: Pharmacy to dose Ondansetron HCl (Zofran Odt) 4 mg PO Q6H PRN PRN Reason: Nausea/Vomiting Ondansetron HCl (Zofran) 4 mg IVP Q6H PRN PRN Reason: Nausea/Vomiting Pantoprazole Sodium (Protonix) 40 mg PO DAILY [facility] Last Admin: 11/01/18 08:56 Dose: 40 mg Senna/Docusate Sodium (Senokot S) 2 tab PO BIDPRN PRN PRN Reason: Constipation Sodium Chloride (Flush - Normal Saline) 10 ml IVF PRN PRN PRN Reason: Saline Flush Last Admin: 11/01/18 08:57 Dose: 10 ml Ticagrelor (Brilinta) 90 mg PO BID [facility] Last Admin: 11/01/18 21:18 Dose: Not Given Tramadol HCl (Ultram) 50 mg PO Q6H PRN PRN Reason: Pain 1-5 Last Admin: 11/02/18 02:45 Dose: 50 mg Trimethoprim/Sulfamethoxazole (Bactrim Ss) 1 tab PO Q12HR [facility] Last Admin: 11/01/18 21:17 Dose: 1 tab
--- NOTE | 2018-11-02 12:42 | PRG ---
DATE OF SERVICE: 11/02/2018 SUBJECTIVE: This is a 52-year-old lady being seen for end-stage renal disease. The patient denied nausea, vomiting, or chest pain. OBJECTIVE: CONSTITUTIONAL: The patient is awake and alert. VITAL SIGNS: Afebrile. Pulse , breathing 16, and blood pressure 129/69. GENERAL APPEARANCE AND MENTAL STATUS: Fair. HEAD/NECK: Normocephalic. Atraumatic. EYES: EOMI. No deformity. EARS: Clear. No ulcers. NOSE: Intact. No lesions. MOUTH: Clear. No discharge. THROAT: Clear. No exudate. LUNGS: Clear. No crackles. CARDIAC: S1, S2. No rub. ABDOMEN: Benign. Bowel sounds positive. GENITALIA/RECTUM: Loo absent. BACK/EXTREMITIES: Edema 0+. NEUROLOGICAL: Alert and motor intact. SKIN: LYMPHATICS: LABORATORY DATA: Labs showed hemoglobin 8.1. ASSESSMENT AND PLAN: 1. Stage 6 chronic kidney disease. Continue dialysis. 2. Hypertension, stable. 3. Anemia, stable. 4. Medication based on GFR appropriate. Job ID: [id number]
[2018-11-02] MEDS: Aspirin 81 mg Enteric Coated Tablet PO SCH (13:29)
[2018-11-02] MEDS: Sulfameth/Trimethoprim SS 400-80MG TAB PO SCH (13:29)
[2018-11-02] MEDS: Amlodipine 5 MG TAB PO SCH (13:30)
[2018-11-02] MEDS: TICAGRELOR 90 MG TABLET PO SCH (13:30)
[2018-11-02] MEDS: Gabapentin 100 MG CAP PO SCH ×2 (13:31→16:57)
[2018-11-02] MEDS: Carvedilol 6.25 MG TAB PO SCH ×2 (13:31→17:03)
--- NOTE | 2018-11-02 15:48 | DIS ---
DATE OF ADMISSION: 10/27/2018 DATE OF DISCHARGE: 11/02/2018 DISCHARGE DISPOSITION: Home with home oxygen. FOLLOWUP: 1. Follow up with Dr. Bolivar in 1 week. 2. Follow up with Dr. Blanc in 1 to 2 weeks. 3. Follow up with Nephrology, Dr. Singh for maintenance hemodialysis. DISCHARGE MEDICATIONS: 1. Tramadol as needed. 2. Lorazepam as needed for anxiety. All other home medications were left unchanged including the insulin pump. BRIEF HOSPITAL COURSE: The patient is a 52-year-old female with coronary artery disease, status post stent placement, congestive heart failure, diabetes mellitus type 2, and end-stage renal disease, on hemodialysis, presented to the emergency room with worsening shortness of breath and hypoxemia with oxygen saturation of 83%. She was admitted to the hospital with a diagnosis of congestive heart failure exacerbation with acute hypoxic respiratory failure. Her symptoms gradually improved with hemodialysis. Home oxygen has been arranged. She stayed over the weekend due to pending oxygen setup. Also, the patient was found to have a urinary tract infection secondary to Escherichia coli. She was placed on Bactrim, which she has completed during this hospital stay. The patient was also evaluated by Dr. Blanc. She underwent basilic vein transposition fistula, which was originally scheduled as outpatient. She has been cleared by consultants for discharge. FINAL DIAGNOSES: 1. Acute hypoxic respiratory failure secondary to acute on chronic systolic heart failure exacerbation/volume overload. Please note that the patient is not a candidate for an ESTHER inhibitor, ARB, or Aldactone due to chronic kidney disease. 2. Escherichia coli urinary tract infection, completed antibiotics. 3. Coronary artery disease, status post stent placement, on aspirin and Brilinta. Dr. Blanc is okay with resuming Brilinta. 4. Type 2 myocardial infarction. 5. Hyperlipidemia. 6. Ischemic cardiomyopathy. 7. 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 8. Hypertension. 9. Former smoker. 10. Seizure disorder. 11. End-stage renal disease, on hemodialysis. 12. Anemia secondary to renal insufficiency. 13. Mild hyponatremia. 14. Moderate protein-calorie malnutrition. PLAN: Plan of care was discussed with the patient in detail. She stated understanding. Job ID: [id number]
[2018-11-02 16:43] VITALS: TEMP 98.8
[2018-11-02 17:03] VITALS: BP 154/74
== END 2018-11-02 17:00 | disposition home or self-care (01) | DRG 264 ==
LOC: ERS 03:16 → ERHOLD 05:24 → 2NO 16:50
PROVIDERS: ADMIT Hospitalist; ATTEND Hospitalist
PROC: 5A1D70Z Performance of Urinary Filtration, Intermittent, Less than 6 Hours Per Day (ICD-10-PCS; 2018-10-27)
PROC: 031B0ZF Bypass Right Radial Artery to Lower Arm Vein, Open Approach (ICD-10-PCS; principal; 2018-10-28)
DX: I13.2 Hypertensive heart and chronic kidney disease with heart failure and with stage 5 chronic kidney disease, or end stage renal disease (principal); N18.6 End stage renal disease; I21.A1 Myocardial infarction type 2; I50.23 Acute on chronic systolic (congestive) heart failure; J96.01 Acute respiratory failure with hypoxia; N39.0 Urinary tract infection, site not specified; E87.1 Hypo-osmolality and hyponatremia; E44.0 Moderate protein-calorie malnutrition; T82.590A Other mechanical complication of surgically created arteriovenous fistula, initial encounter; B96.20 Unspecified Escherichia coli [E. coli] as the cause of diseases classified elsewhere; I25.10 Atherosclerotic heart disease of native coronary artery without angina pectoris; E78.5 Hyperlipidemia, unspecified; I25.5 Ischemic cardiomyopathy; E11.22 Type 2 diabetes mellitus with diabetic chronic kidney disease; E11.21 Type 2 diabetes mellitus with diabetic nephropathy; G40.909 Epilepsy, unspecified, not intractable, without status epilepticus; E11.40 Type 2 diabetes mellitus with diabetic neuropathy, unspecified; D63.1 Anemia in chronic kidney disease; Z96.41 Presence of insulin pump (external) (internal); Z79.4 Long term (current) use of insulin; Z79.82 Long term (current) use of aspirin; Z68.24 Body mass index [BMI] 24.0-24.9, adult; Z99.2 Dependence on renal dialysis; Z86.73 Personal history of transient ischemic attack (TIA), and cerebral infarction without residual deficits; Z87.891 Personal history of nicotine dependence; Z95.818 Presence of other cardiac implants and grafts; Z88.8 Allergy status to other drugs, medicaments and biological substances; Z88.1 Allergy status to other antibiotic agents; Z91.040 Latex allergy status; Y71.3 Surgical instruments, materials and cardiovascular devices (including sutures) associated with adverse incidents
CPT/HCPCS: 36415; 36416; 71045; 80048; 80053; 81003; 81015; 82553; 83735; 83880; 84484; 85014; 85018; 85025; 85049; 86706; 87040; 87077; 87086; 87186; 87340; 87804; 90935; 93005; 94640; 96374; G0257; J0670; J1644; J1815; J1825; J1940; J2001; J2270; J2405; J2704; J3010; J3370; J3490; J7050; J7620; Q5105

== ENCOUNTER 2018-11-13 10:43 | Emergency (ER) | payer OTHER ==
--- NOTE | 2018-11-13 11:31 | CT ---
CT BRAIN WITHOUT CONTRAST: HISTORY: Altered mental status FINDINGS: No evidence of acute infarct, hemorrhage, midline shift or abnormal extra-axial fluid collections is seen. The ventricular size is appropriate and the basilar cisterns are patent. The bony calvarium is intact. The visualized paranasal sinuses and mastoid air cells are well aerated. A small low-densi ty lesion in the right periventricular white matter was also seen on the MRI of 2018. IMPRESSION: No CT evidence of acute intracranial process.
[2018-11-13 11:47] LABS: Hemoglobin 9.5 g/dL (12.0-16.0); Mean Corpuscular HGB CONC 31.2 g/dL (32.0-36.0); Mean Corpuscular Hemoglobin 27.7 pg (27.0-31.0); Mean Corpuscular Volume 88.7 fL (78.0-98.0); Mean Platelet Volume 8.7 fL (7.4-10.4); Platelet Count 289 thou/uL (130-400); RBC Distribution Width 15.8 % (11.5-14.5); Red Blood Cell (RBC) Count 3.44 mill/uL (4.20-5.40); White Blood Cell (WBC) Count 5.6 thou/uL (4.8-10.8)
[2018-11-13 12:01] LABS: Band 1 % (5-11); Eosinophils 1 % (0-10); Hypochromia SLIGHT = 6-15 cells (100X) (0-5/hpf); Lymphocytes 22 % (21-51); MDiff Complete? YES; Monocytes 6 % (0-10); Neutrophil 69 % (42-75); Platelet Morphology Comment Appears Adequate; Polychromasia SLIGHT = 2-3 cells (100X) (0-2/hpf); Promyelocytes 1 % (0-0)
[2018-11-13 12:03] LABS: ALT (SGPT) 28 U/L (8-55); AST (SGOT) 60 U/L (5-34); Albumin 2.9 g/dL (3.5-5.0); Alcohol Less than 10 mg/dL (Less than 10); Alkaline Phosphatase 190 U/L (40-150); Anion Gap 15 mmol/L (10-20); BUN (Urea Nitrogen) 31 mg/dL (9.8-20.1); Bilirubin, Total 0.3 mg/dL (0.2-1.2); CK (CPK) 113 U/L (29-168); Calc. Creatinine Clearance 0 mL/min (70-130); Calcium 7.8 mg/dL (7.8-10.44); Carbon Dioxide 26 mmol/L (22-29); Chloride 100 mmol/L (98-107); Estimated GFR-MDRD 13; Globulin 2.5 g/dL (2.4-3.5); Glucose 388 mg/dL (70-105); Lipase 6 U/L (8-78); Potassium 4.5 mmol/L (3.5-5.1); Protein, Total 5.4 g/dL (6.0-8.3); Salicylate Less than 8.0 mg/dL (15.0-30.0); Sodium 136 mmol/L (136-145)
[2018-11-13 12:25] LABS: CKMB 3.8 ng/mL (0-6.6)
--- NOTE | 2018-11-14 13:45 | EKG ---
Test Reason : Blood Pressure : / mmHG Vent. Rate : 074 BPM Atrial Rate : 074 BPM P-R Int : 156 ms QRS Dur : 080 ms QT Int : 340 ms P-R-T Axes : 075 -17 145 degrees QTc Int : 377 ms Normal sinus rhythm Low voltage QRS Cannot rule out Anterior infarct , age undetermined Abnormal ECG Confirmed by NIKI EVANGELISTA, OLIVIA ([id number]), online editor AV BERRY ([id number]) on 11/14/2018 1:45:42 PM Referred By: Confirmed By:OLIVIA PRINCE MD
== END 2018-11-13 14:21 | disposition home or self-care (01) ==
LOC: ERS 10:43
DX: T42.4X1A Poisoning by benzodiazepines, accidental (unintentional), initial encounter (principal); I12.0 Hypertensive chronic kidney disease with stage 5 chronic kidney disease or end stage renal disease; N18.6 End stage renal disease; E11.22 Type 2 diabetes mellitus with diabetic chronic kidney disease; I25.10 Atherosclerotic heart disease of native coronary artery without angina pectoris; K21.9 Gastro-esophageal reflux disease without esophagitis; E78.5 Hyperlipidemia, unspecified; Z86.73 Personal history of transient ischemic attack (TIA), and cerebral infarction without residual deficits; Z99.2 Dependence on renal dialysis; F41.9 Anxiety disorder, unspecified; F17.290 Nicotine dependence, other tobacco product, uncomplicated; Z79.899 Other long term (current) drug therapy
CPT/HCPCS: 36415; 36416; 70450; 80053; 80307; 82010; 82140; 82550; 82553; 83690; 83880; 84484; 85025; 93005; 96360; 96361

== ENCOUNTER 2018-11-27 16:24 | Emergency (ER) | payer OTHER ==
--- NOTE | 2018-11-27 16:50 | RAD ---
Exam: Chest one view HISTORY:Dyspnea Comparison: 10/27/2018 FINDINGS: Stable right-sided HemoSplit dialysis catheter. Persistent pleural and parenchymal changes obscure lin th hemidiaphragms and the cardiac silhouette. Stable aeration of the upper lungs. No osseous abnormalities IMPRESSION: Persistent bibasilar pleural and parenchymal changes. Volume overload. Superimposed bibas ilar aspiration or pneumonia cannot be excluded.
[2018-11-27 16:51] LABS: #Basophils 0.1 thou/uL (0.0-0.2); #Eosinphils 0.2 thou/uL (0.0-0.7); #Lymphocytes 1.3 thou/uL (1.20-3.40); #Monocytes 0.4 thou/uL (0.11-0.59); #Neutrophils 4.6 thou/uL (1.40-6.50); %Basophils 1.1 % (0.0-1.0); %Eosinophils 2.7 % (0.0-10.0); %Lymphocytes 19.7 % (21.0-51.0); %Monocytes 6.6 % (0.0-10.0); Hemoglobin 11.8 g/dL (12.0-16.0); Mean Corpuscular HGB CONC 30.9 g/dL (32.0-36.0); Mean Corpuscular Hemoglobin 28.2 pg (27.0-31.0); Mean Corpuscular Volume 91.2 fL (78.0-98.0); Mean Platelet Volume 8.9 fL (7.4-10.4); Platelet Count 270 thou/uL (130-400); RBC Distribution Width 16.6 % (11.5-14.5); White Blood Cell (WBC) Count 6.5 thou/uL (4.8-10.8)
[2018-11-27 16:51] LABS: Actual Bicarbonate (HCO3a) 34.7 mEq/L (22-28); Analyzer IN Cardio ER; Base Excess (BEa) 9.4 mEq/L (-2.0 to +3.0); CO2 Tension 50.6 mmHg (35.0-45.0); Calcium, Ionized 1.09 mmol/L (1.12-1.30); Carboxyhemoglobin (COHb) 3.3 gm% (0.0-3.0); Hemoglobin (Hb) 11.1 g/dL (12.0-16.0); O2 Tension (PaO2) 76.3 mmHg (80.0-100.0); Potassium - ABG Lab 3.62 mmol/L (3.70-5.30); pH, Arterial 7.45 (7.35-7.45)
[2018-11-27 16:53] LABS: Puncture Site LRA
[2018-11-27 17:11] LABS: ALT (SGPT) 10 U/L (8-55); AST (SGOT) 15 U/L (5-34); Albumin 3.5 g/dL (3.5-5.0); Alkaline Phosphatase 208 U/L (40-150); Anion Gap 12 mmol/L (10-20); BUN (Urea Nitrogen) 16 mg/dL (9.8-20.1); Bilirubin, Total 0.3 mg/dL (0.2-1.2); CK (CPK) 128 U/L (29-168); Calc. Creatinine Clearance 0 mL/min (70-130); Calcium 8.9 mg/dL (7.8-10.44); Carbon Dioxide 33 mmol/L (22-29); Chloride 98 mmol/L (98-107); Estimated GFR-MDRD 19; Globulin 3.4 g/dL (2.4-3.5); Glucose 349 mg/dL (70-105); Potassium 3.6 mmol/L (3.5-5.1); Protein, Total 6.9 g/dL (6.0-8.3); Sodium 139 mmol/L (136-145)
[2018-11-27 17:31] LABS: CKMB 3.7 ng/mL (0-6.6)
[2018-11-27 19:16] LABS: HBSAg Index 0.24 S/CO (0-0.99); Hep B Surf Ag Non-Reactive S/CO (NonReactive)
[2018-11-27] MEDS ORDERED: Lorazepam 1 MG TAB ONE (22:17)
--- NOTE | 2018-11-30 11:03 | CON ---
DATE OF CONSULTATION: 11/27/2018 CONSULTING PHYSICIAN: ER physician. REASON FOR CONSULT: End-stage renal disease evaluation. REASON FOR ADMISSION: Shortness of breath. HISTORY OF PRESENT ILLNESS: This is a 52-year-old female with history of coronary artery disease, type 2 diabetes, congestive heart failure who came to the hospital with shortness of breath and she had dialysis for 2 hours, left early due to anxiety attack, and went home, but she is having orthopnea and dyspnea and she is found to have fluid overload and is being admitted. REVIEW OF SYSTEMS: No fever or chills. No nausea or vomiting. PAST MEDICAL HISTORY: Positive for CHF, hypertension, hyperlipidemia, type 2 diabetes, coronary artery disease, CVA, seizure disorder. PAST SURGICAL HISTORY: 1. . 2. Cardiac cath. 3. Cholecystectomy. 4. Hysterectomy. HOME MEDICATIONS: 1. Tylenol. 2. Amlodipine. 3. Aspirin. 4. Vitamin D3. 5. Plavix. 6. Ferrous sulfate. 7. . 8. Imdur. 9. Zofran. 10. Brilinta. 11. Lipitor. 12. Carvedilol. 13. Keppra. 14. Protonix. ALLERGIES: 1. HYDRALAZINE. 2. INSULIN. 3. LISPRO. 4. KEFLEX. SOCIAL HISTORY: Former smoker. No alcohol or drug abuse. FAMILY HISTORY: No history of kidney disease. REVIEW OF SYSTEMS: CONSTITUTIONAL: Negative for weight loss or gain, ability to conduct usual activities. SKIN: Negative for rash, itching. EYES: Negative for double vision, pain. ENT/MOUTH: Negative for nose bleeding, neck stiffness, pain, tenderness. CARDIOVASCULAR: Negative for palpitations, dyspnea on exertion, orthopnea. RESPIRATORY: Negative for shortness of breath, wheezing, cough, hemoptysis, fever or night sweats. GASTROINTESTINAL: Negative for poor appetite, abdominal pain, heartburn, nausea, vomiting, constipation, or diarrhea. GENITOURINARY: Negative for urgency, frequency, dysuria, nocturia. MUSCULOSKELETAL: Negative for pain, swelling. NEUROLOGIC/PSYCHIATRIC: Negative for anxiety, depression. ALLERGY/IMMUNOLOGIC: Negative for skin rash, bleeding tendency. Rest all negative. PHYSICAL EXAMINATION: GENERAL: This is a thin-built female, in no apparent distress. VITAL SIGNS: . HEENT: Atraumatic and normocephalic. Oral mucosa is moist. NECK: Supple. CV: S1 and S2 heard. Rate and rhythm regular. RESPIRATORY: She had crackles. GI: Abdomen is soft. MUSCULOSKELETAL: 1+ edema. DERMATOLOGIC: No skin rash. NEUROLOGIC: Alert and awake. PSYCHIATRIC: Mood and affect normal. LABORATORY DATA: Potassium 3.6, BUN 16, creatinine is 2.6. ASSESSMENT AND PLAN: 1. End-stage renal disease. Continue on dialysis as tolerated. 2. Edema. We will remove fluid. 3. Elevated BNP. We will remove fluid. 4. Fluid overload. 5. Anemia. 6. Hypertension. We will remove fluid. 7. Plan is to have dialysis today for 2 hours with ultrafiltration as tolerated. The patient counseled including family members to have dialysis and also to limit salt and fluid intake. We will continue to follow. Continue counseling. Thank you for the consult. Job ID: [id number]
== END 2018-11-27 23:58 | disposition home or self-care (01) ==
LOC: ERS 16:24
DX: J81.1 Chronic pulmonary edema (principal); I25.10 Atherosclerotic heart disease of native coronary artery without angina pectoris; K21.9 Gastro-esophageal reflux disease without esophagitis; E11.22 Type 2 diabetes mellitus with diabetic chronic kidney disease; E78.5 Hyperlipidemia, unspecified; I12.0 Hypertensive chronic kidney disease with stage 5 chronic kidney disease or end stage renal disease; N18.6 End stage renal disease; F41.9 Anxiety disorder, unspecified; Z87.891 Personal history of nicotine dependence; Z79.899 Other long term (current) drug therapy; Z79.4 Long term (current) use of insulin
CPT/HCPCS: 71045; 80053; 82550; 82553; 82805; 83880; 84484; 85025; 87340; 90935; 93005; 94760; G0257

== ENCOUNTER 2018-11-30 09:48 | Emergency (ER) | payer OTHER ==
[2018-11-30 10:33] LABS: #Eosinphils 0.2 thou/uL (0.0-0.7); #Lymphocytes 1.2 thou/uL (1.20-3.40); #Monocytes 0.4 thou/uL (0.11-0.59); #Neutrophils 3.8 thou/uL (1.40-6.50); %Basophils 0.7 % (0.0-1.0); %Eosinophils 3.9 % (0.0-10.0); %Lymphocytes 21.2 % (21.0-51.0); %Monocytes 7.7 % (0.0-10.0); %Neutrophils 66.5 % (42.0-75.0); Hemoglobin 12.5 g/dL (12.0-16.0); Mean Corpuscular Hemoglobin 28.3 pg (27.0-31.0); Mean Corpuscular Volume 91.1 fL (78.0-98.0); Mean Platelet Volume 9.1 fL (7.4-10.4); Platelet Count 236 thou/uL (130-400); RBC Distribution Width 16.3 % (11.5-14.5); Red Blood Cell (RBC) Count 4.43 mill/uL (4.20-5.40); White Blood Cell (WBC) Count 5.6 thou/uL (4.8-10.8)
--- NOTE | 2018-11-30 10:44 | RAD ---
EXAM: Single view of the chest HISTORY: Chest pain at dialysis COMPARISON: 11/27/2018 FINDINGS: Single view of the chest shows an enlarged cardiomediastinal silhouette. There are bilater al pleural effusions with adjacent atelectasis versus infiltrates. The dialysis catheter is unchanged in position. IMPRESSION: Bilateral pleural effusions with adjacent atelectasis versus infiltrates
[2018-11-30 10:56] LABS: ALT (SGPT) 10 U/L (8-55); AST (SGOT) 10 U/L (5-34); Albumin 3.8 g/dL (3.5-5.0); Alkaline Phosphatase 187 U/L (40-150); Anion Gap 14 mmol/L (10-20); BUN (Urea Nitrogen) 25 mg/dL (9.8-20.1); Bilirubin, Total 0.4 mg/dL (0.2-1.2); CK (CPK) 141 U/L (29-168); Calc. Creatinine Clearance 0 mL/min (70-130); Calcium 9.4 mg/dL (7.8-10.44); Carbon Dioxide 28 mmol/L (22-29); Chloride 101 mmol/L (98-107); Estimated GFR-MDRD 16; Globulin 3.4 g/dL (2.4-3.5); Glucose 266 mg/dL (70-105); Potassium 4.3 mmol/L (3.5-5.1); Protein, Total 7.2 g/dL (6.0-8.3); Sodium 139 mmol/L (136-145)
[2018-11-30] MEDS ORDERED: metroNIDAZOLE 250 MG TAB ONE (11:08)
[2018-11-30] MEDS ORDERED: Fentanyl 100 MCG/2 ML VIAL ONE (11:09)
[2018-11-30 11:25] LABS: CKMB 5.4 ng/mL (0-6.6)
== END 2018-11-30 14:48 | disposition home or self-care (01) ==
LOC: ERS 09:48
DX: J81.0 Acute pulmonary edema (principal); K21.9 Gastro-esophageal reflux disease without esophagitis; I12.0 Hypertensive chronic kidney disease with stage 5 chronic kidney disease or end stage renal disease; N18.6 End stage renal disease; Z99.2 Dependence on renal dialysis; E11.40 Type 2 diabetes mellitus with diabetic neuropathy, unspecified; E11.22 Type 2 diabetes mellitus with diabetic chronic kidney disease; Z86.73 Personal history of transient ischemic attack (TIA), and cerebral infarction without residual deficits; F41.9 Anxiety disorder, unspecified; Z87.891 Personal history of nicotine dependence; Z79.899 Other long term (current) drug therapy; Z79.4 Long term (current) use of insulin
CPT/HCPCS: 71045; 80053; 82550; 82553; 83880; 84484; 85025; 93005; 96374; J3010